=== PATIENT | male | born 1950 | race Caucasian/White ===

== ENCOUNTER 2022-02-17 09:15 | Outpatient (CLI) | payer MEDICARE, BC, SELFPAY ==
[2022-02-17 19:17] LABS: Chloride* 102 mmol/L (96-114); Potassium* 4.3 mmol/L (3.6-5.1); Sodium* 135 mmol/L (135-149)
[2022-02-17 19:19] LABS: Creatinine* 1.1 mg/dL (0.5-1.5); Estimated Glomerular Filt Rate 70.88
[2022-02-17 19:20] LABS: Blood Urea Nitrogen* 30 mg/dL (7-30); Calcium* 9.1 mg/dL (8.4-10.6); Carbon Dioxide* 25 mmol/L (20-32); Glucose* 105 mg/dL (60-115)
== END 2022-02-17 09:16 | disposition home or self-care (01) ==
LOC: LONREF 09:17
PROVIDERS: PCP Family Medicine; Visit Provider Family Medicine
DX: Z01.818 Encounter for other preprocedural examination (principal); I10 Essential (primary) hypertension; E78.5 Hyperlipidemia, unspecified; G20 Parkinson's disease; K86.89 Other specified diseases of pancreas
CPT/HCPCS: 80048

== ENCOUNTER 2022-05-18 14:32 | Outpatient (CLI) | payer MEDICARE, BC, SELFPAY ==
[2022-05-18 17:41] LABS: Creatine Kinase* 169 U/L (54-186)
== END 2022-05-18 14:33 | disposition home or self-care (01) ==
LOC: LONREF 14:34
PROVIDERS: PCP Family Medicine; Visit Provider Family Medicine
DX: R29.898 Other symptoms and signs involving the musculoskeletal system (principal)
CPT/HCPCS: 82550

== ENCOUNTER 2022-05-25 07:44 | Outpatient (CLI) | payer MEDICARE, BC, SELFPAY ==
--- NOTE | 2022-05-25 08:00 | CRLHL7_ITS ---
For Patients: As a result of the Century Cures Act, medical imaging exams and procedure reports are released immediately into your electronic medical record. You may view this report before your referring provider. If you have questions, please contact your health care provider. [facility] ??? [facility] MYOCARDIAL PERFUSION SCAN CLINICAL HISTORY: Chest pain and hypertension. TECHNIQUE: (Resting SPECT and Stress Gated SPECT with wall motion and ejection fraction) Stress: Pharmacologic ??? Regadenoson (0.4 mg) (IV) Dose (Stress/Rest): 30.0 mCi/8.6 mCi Tc-99m Sestamibi (IV) Comparison: None FINDINGS: There is good uptake of the radiotracer by the left ventricle. There is no left ventricular dilatation. There is soft tissue attenuation. No significant fixed or reversible defects are identified throughout the left ventricle. Gated images demonstrate left ventricular ejection fraction to calculate at 70 percent. There is no focal wall motion abnormality. IMPRESSION: 1. No evidence of significant myocardial ischemia or infarction. 2. Normal left ventricular ejection fraction is identified at 70 percent. This study was jointly reviewed by radiology and cardiology. GIO WOODWARD M.D. Diagnostic/Nuclear Medicine Radiologist [email or web address] Transcribed: 2:44 pm CO-READER: SELIN WANG M.D. CARDIOLOGY DW/Dictated by: Gio Woodward MD @ 05/25/2022 2:09:00 PM (Electronically Signed)
[2022-05-25] MEDS: SODIUM CHLORIDE 0.9 % (FLUSH) 10 ML SYRINGE IVF (10:04)
[2022-05-25] MEDS: REGADENOSON 0.4 MG/5 ML SYRINGE IVP (10:04)
[2022-05-25 11:19] VITALS: BP 121/77; PULSE 105
--- NOTE | 2022-05-25 17:19 | PM.ST ---
Stress Test Note Date Date Seen: 05/25/22 Date of test: 05/25/22 Providers Referring provider: Lino Erickson Primary care provider: Lino Erickson Stress test physician: Rory Blue Stress Test Note Stress test ordered: Lexiscan Indication for test: Exertional shortness of breath Stress test medicine: Lexiscan Results discussion: Patient is a very nice 71-year-old gentleman who presents for the above test after discussion the risks benefits and side effects he would like to proceed pretest EKG is reviewed. This shows normal sinus rhythm with a ventricular rate of 93, blood pressure 150 a 95, there is some diffuse ST wave changes noted inferiorly. Unknown if this is at baseline. Following standard Lexiscan protocol for 5 minutes, patient sat. His maximum was 109 which is 87% of the maximum, he had no changes during this test denies any chest pain shortness of breath or fatigue, review of the tracings show no change in pre-existing EKG. There is no ST wave Dews suggestive of ischemia. Impression: Negative electrographic portion of Lexiscan Follow up suggested: Await nuclear images these will be read by Cardiology nuclear Medicine, clinical correlation with these will be needed, patient left this testing facility in excellent condition.
== END 2022-05-25 07:45 | disposition home or self-care (01) ==
PROVIDERS: PCP Family Medicine; Visit Provider Family Medicine
DX: R06.09 Other forms of dyspnea (principal)
CPT/HCPCS: 78452; 93016; 93017; A9500; J2785

== ENCOUNTER 2022-08-09 08:04 | Outpatient (CLI) | payer MEDICARE, BC, SELFPAY ==
[2022-08-09 13:59] LABS: Chloride* 101 mmol/L (96-114); Potassium* 5.1 mmol/L (3.6-5.1); Sodium* 137 mmol/L (135-149)
[2022-08-09 14:02] LABS: Carbon Dioxide* 29 mmol/L (20-32); Creatinine* 1.1 mg/dL (0.5-1.5); Estimated Glomerular Filt Rate 71 ml/min
[2022-08-09 14:03] LABS: Blood Urea Nitrogen* 18 mg/dL (7-30); Calcium* 9.7 mg/dL (8.4-10.6); Glucose* 91 mg/dL (60-115)
== END 2022-08-09 08:05 | disposition home or self-care (01) ==
LOC: LONREF 08:05
PROVIDERS: PCP Family Medicine; Visit Provider Family Medicine
DX: Z01.818 Encounter for other preprocedural examination (principal)
CPT/HCPCS: 80048

== ENCOUNTER 2022-08-27 07:31 | Outpatient (CLI) | payer MEDICARE, BC, SELFPAY ==
--- NOTE | 2022-08-27 09:29 | W.ANESCHARGE ---
Anesthesia Charges Start Date/Time Anesthesia Start Date: 08/27/22 Anesthesia Start Time: 08:45 Stop Date/Time Anesthesia Stop Date: 08/27/22 Anesthesia Stop Time: 09:27 Summary Emergency: No Extremes of Age: Over 68-CPT [id number]
== END 2022-08-27 07:32 | disposition home or self-care (01) ==
PROVIDERS: PCP Family Medicine; Visit Provider Internal Medicine
DX: Z12.11 Encounter for screening for malignant neoplasm of colon (principal); K63.5 Polyp of colon; Z86.010 Personal history of colon polyps
CPT/HCPCS: 00811; 45380; 88305; 99100; J2704

== ENCOUNTER 2022-10-06 13:15 | Outpatient (CLI) | payer MEDICARE, BC, SELFPAY ==
[2022-10-06 17:36] LABS: Chloride* 97 mmol/L (96-114); Potassium* 4.7 mmol/L (3.6-5.1); Sodium* 135 mmol/L (135-149)
[2022-10-06 17:39] LABS: Blood Urea Nitrogen* 21 mg/dL (7-30); Carbon Dioxide* 30 mmol/L (20-32); Estimated Glomerular Filt Rate 79 ml/min; Glucose* 92 mg/dL (60-115)
[2022-10-06 17:40] LABS: Calcium* 9.8 mg/dL (8.4-10.6)
== END 2022-10-06 13:16 | disposition home or self-care (01) ==
LOC: LONREF 13:16
PROVIDERS: PCP Family Medicine; Visit Provider Family Medicine
DX: Z01.818 Encounter for other preprocedural examination (principal)
CPT/HCPCS: 80048

== ENCOUNTER 2023-05-23 10:18 | Outpatient (CLI) | payer MEDICARE, BC, SELFPAY | END 2023-05-23 10:19 | disposition home or self-care (01) | PROVIDERS: PCP Family Medicine; Visit Provider Family Medicine | DX: R42 Dizziness and giddiness (principal); R53.83 Other fatigue | CPT/HCPCS: 80053; 84443 ==

== ENCOUNTER 2023-05-31 08:40 | Outpatient (CLI) | payer MEDICARE, BC, SELFPAY | END 2023-05-31 08:41 | disposition home or self-care (01) | LOC: NFLDREF 16:28 | PROVIDERS: PCP Family Medicine; Referring Provider Family Medicine; Visit Provider Family Medicine | DX: E78.5 Hyperlipidemia, unspecified (principal) | CPT/HCPCS: 80061 ==

== ENCOUNTER 2023-08-16 14:27 | Outpatient (REF) | payer MEDICARE, BC, SELFPAY ==
[2023-08-16 15:30] LABS: Iron* 119 ug/dL (49-181)
[2023-08-16 15:31] LABS: Glucose* 99 mg/dL (60-115)
[2023-08-16 15:39] LABS: Percent Iron Saturation 40 % (20-50); Total Iron Binding Capacity 296 ug/dL (261-462)
[2023-08-16 15:44] LABS: Hemoglobin A1C* 5.2 % (0-5.6)
[2023-08-20 00:14] LABS: Albumin 3.98 g/dL (3.75-5.01); Alpha 1 Globulin 0.25 g/dL (0.19-0.46); Alpha 2 Globulin 0.54 g/dL (0.48-1.05); Immunofixation IFE Done; Immunoglobulin A 452 mg/dL (68-408); Immunoglobulin G 752 mg/dL (768-1632); Immunoglobulin M 75 mg/dL (35-263); Kappa Qnt Free Light Chains 41.85 mg/L (3.30-19.40); Kappa/Lambda Light Chain Ratio 0.96 (0.26-1.65); Lambda Qnt Free Light Chains 43.67 mg/L (5.71-26.30); Total Protein, Serum 6.5 g/dL (6.3-8.2)
== END 2023-08-16 14:28 | disposition home or self-care (01) ==
LOC: NPINS 14:27
PROVIDERS: PCP Family Medicine; Visit Provider Physician Assistant
DX: G25.81 Restless legs syndrome (principal); Z13.0 Encounter for screening for diseases of the blood and blood-forming organs and certain disorders involving the immune mechanism; I10 Essential (primary) hypertension; E78.5 Hyperlipidemia, unspecified; G47.33 Obstructive sleep apnea (adult) (pediatric); G62.9 Polyneuropathy, unspecified; F41.9 Anxiety disorder, unspecified; G20.A2 Parkinson's disease without dyskinesia, with fluctuations; F34.1 Dysthymic disorder; K86.89 Other specified diseases of pancreas; Z13.29 Encounter for screening for other suspected endocrine disorder; R42 Dizziness and giddiness
CPT/HCPCS: 82607; 82728; 82784; 82947; 83036; 83520; 83540; 83550; 84155; 84165; 84443; 86334

== ENCOUNTER 2023-12-22 14:56 | Outpatient (REF) | payer MEDICARE, BC, SELFPAY | END 2023-12-22 14:57 | disposition home or self-care (01) | LOC: NPINS 14:56 | PROVIDERS: PCP Family Medicine; Visit Provider Physician Assistant | DX: G62.9 Polyneuropathy, unspecified (principal) | CPT/HCPCS: 86334 ==

== ENCOUNTER 2024-01-09 10:23 | Outpatient (CLI) | payer MEDICARE, BC, SELFPAY ==
--- NOTE | 2024-01-09 10:45 | MM_ITS ---
Patient: ROGE VALENCIA Facility:?[facility] Patient ID:?[id number] Site Patient ID:?[id number] Site :?[id number] Study:?XRay-Breast Bilateral 3D W/CAD-01/09/2024 10:58:25 AM Ordering Physician:Na Final Report: DIGITAL DIAGNOSTIC BILATERAL MAMMOGRAM USING TOMOSYNTHESIS AND COMPUTER-AIDED DETECTION CLINICAL HISTORY: RIGHT breast lump. COMPARISON: None. TECHNIQUE: Digital BILATERAL mammogram in four projections with computer-aided detection. Tomosynthesis was used in this interpretation. BREAST COMPOSITION: There are areas of scattered fibroglandular density. FINDINGS: 3D CC/MLO bilateral mammogram images submitted. Subareolar breast tissue noted bilaterally, RIGHT greater than LEFT. No architectural distortion or suspicious mass. No suspicious calcifications or adenopathy. IMPRESSION: Bilateral subareolar gynecomastia, [id number]. No suspicious findings. No evidence of malignancy. RECOMMENDATIONS: Clinical follow-up. Results and recommendations discussed with the patient. BI-RADS Category 2: Benign A lay language report of this examination will be provided to the patient. Dictated by Tr Wadsworth MD @ 01/09/2024 12:05:50 PM jj/Dictated by: Tr Wadsworth MD @ 01/09/2024 12:05:00 PM Signed by:?Tr Wadsworth MD @01/09/2024 4:31:57 PM (Electronic Signature)
== END 2024-01-09 10:24 | disposition home or self-care (01) ==
LOC: MAMMO 10:24
PROVIDERS: PCP Family Medicine; Visit Provider Family Medicine
DX: N63.15 Unspecified lump in the right breast, overlapping quadrants (principal); N62 Hypertrophy of breast
CPT/HCPCS: 77066; G0279

== ENCOUNTER 2024-06-26 09:56 | Outpatient (CLI) | payer MEDICARE, BC, SELFPAY | END 2024-06-26 09:57 | disposition home or self-care (01) | PROVIDERS: PCP Family Medicine; Visit Provider Family Medicine | DX: R53.83 Other fatigue (principal); N62 Hypertrophy of breast; E78.5 Hyperlipidemia, unspecified; D80.8 Other immunodeficiencies with predominantly antibody defects; Z13.29 Encounter for screening for other suspected endocrine disorder; Z13.0 Encounter for screening for diseases of the blood and blood-forming organs and certain disorders involving the immune mechanism | CPT/HCPCS: 80053; 80061; 82670; 83002; 84270; 84402; 84403; 84443; 84704 ==

== ENCOUNTER 2024-07-20 21:51 | Outpatient (CLI) | payer MEDICARE, BC, SELFPAY | END 2024-07-20 21:52 | disposition home or self-care (01) | LOC: AMB 07-21 04:44 | PROVIDERS: PCP Family Medicine; Visit Provider Family Medicine | DX: R06.09 Other forms of dyspnea (principal); R05.9 Cough, unspecified | CPT/HCPCS: A0425; A0427 ==

== ENCOUNTER 2024-07-20 22:37 | Emergency (ER) | payer MEDICARE, BC, SELFPAY ==
[2024-07-20 22:49] VITALS: BP 120/72; PULSE 105; RESP 22; TEMP 36.7; O2SAT 88; BMI 25.6
--- NOTE | 2024-07-20 22:58 | ED.GENADULT ---
HPI - General Adult General Chief complaint: Anxiety Stated complaint: Anxiety Time Seen by Provider: 07/20/24 22:49 History of Present Illness HPI narrative: pt covid last - finished paxlovid. states last night pt has been coughing and crying and more confused. today he has been angry and crying on and off all day. EMS gave 0.5iv ativan. R ac 20g. states parkinsons and dementia but this is not his normal. pt eating good today. chronic 3-4 drink vodka drinker - last drink besides tonight was tuesday, had 3 vodkas tonight. on triage pt crying and answers yes/no answers. denies pain,SOB, CP 73-year-old man brought by EMS to the emergency department after an episode of crying and coughing at home. Recently diagnosed with COVID. Had not been coughing at that time. Began coughing more today, tonight. Was restless and ?roaming? about the house. Seated on the couch started coughing and ended up on the floor and spouse could not get him up. Son arrived call 911. Spouse was trying to dress him and he was crying. Has been also more confused. He does have a few vodka drinks daily but until tonight he had not had any for 4 days. Three vodkas tonight. Was mobile upon transfer from EMS to the bed but has since been stiffened up and responding only minimally. No seizure history. Underlying history of Parkinson's and has been experiencing more anxiety and anger lately. Has been punching abarca. There are other family stressors. Visit to primary care for this reason 3 weeks ago. Recently increased from 30-60 mg daily of BuSpar and initiated on tamoxifen. Related Data Home Medications ?Medication ?Instructions ?Recorded ?Confirmed multivitamin (Daily Multi-Vitamin 1 tab PO QDAY 02/16/22 07/20/24 tablet) omega-3 fatty acids 1,250 mg 1,250 mg PO QDAY 02/16/22 07/20/24 capsule carbidopa ER 50 mg-levodopa 200 mg 1 tab PO QPM 05/23/23 07/20/24 tablet,extended release gabapentin 300 mg capsule 600 mg PO QHS 08/30/23 07/20/24 carbidopa 25 mg-levodopa 100 mg 2 tab PO TID 12/28/23 07/20/24 tablet Previous Rx's ?Medication ?Instructions ?Recorded fludrocortisone 0.1 mg tablet 0.1 mg PO QDAY #90 tabs 06/07/23 buspirone 10 mg tablet 10 mg PO 3XD #270 tabs 12/27/23 duloxetine 60 mg capsule,delayed 60 mg PO QDAY #90 caps 04/26/24 release gnddso-[id number] 1 cap PO 3XD #270 caps 05/02/24 24,000-76,000-120,000 unit capsule,delayed rel (Creon) clonazepam 1 mg tablet See Rx Instructions PO .ud #75 tabs 06/25/24 buspirone 30 mg tablet 30 mg PO BID #60 tabs 06/26/24 allopurinol 300 mg tablet 300 mg PO DAILY #90 tabs 07/20/24 pravastatin 40 mg tablet 40 mg PO QDAY #90 tabs 07/20/24 Allergies Allergy/AdvReac Type Severity Reaction Status Date / Time No Known Drug Allergies Allergy Verified 06/26/24 08:56 Review of Systems Status of ROS: Reports: 6 or more systems reviewed and unremarkable except as noted in History and below [facility] Medical History Lumbar strain ?S39.012A - Strain of muscle, fascia and tendon of lower back, initial encounter (ICD-10) Enrolled in chronic care management ?Z78.9 - Other specified health status (ICD-10) Family history of ASCVD ?Z82.49 - Family history of ischemic heart disease and other diseases of the circulatory system (ICD-10) Family history of diabetes mellitus ?Z83.3 - Family history of diabetes mellitus (ICD-10) History of adenomatous polyp of colon ?Z86.010 - Personal history of colonic polyps (ICD-10) Melanoma ?C43.9 - Malignant melanoma of skin, unspecified (ICD-10) History of TIA (transient ischemic attack) ?Z86.73 - Personal history of transient ischemic attack (TIA), and cerebral infarction without residual deficits (ICD-10) Surgical History History of arthroplasty of both hips ?Z96.643 - Presence of artificial hip joint, bilateral (ICD-10) S/P right knee arthroscopy ?Z98.890 - Other specified postprocedural states (ICD-10) Status post ORIF of fracture of ankle ?Z98.890 - Other specified postprocedural states (ICD-10) ?Z87.81 - Personal history of (healed) traumatic fracture (ICD-10) S/P lumbar spinal fusion ?Z98.1 - Arthrodesis status (ICD-10) S/P shoulder replacement ?Z96.619 - Presence of unspecified artificial shoulder joint (ICD-10) H/O resection of rib ?Z98.890 - Other specified postprocedural states (ICD-10) History of colonoscopy ?Z98.890 - Other specified postprocedural states (ICD-10) History of bilateral total hip arthroplasty ?Z96.643 - Presence of artificial hip joint, bilateral (ICD-10) History of right inguinal hernia repair ?Z98.890 - Other specified postprocedural states (ICD-10) ?Z87.19 - Personal history of other diseases of the digestive system (ICD-10) History of thoracic outlet syndrome ?Z86.69 - Personal history of other diseases of the nervous system and sense organs (ICD-10) Family History Other Family history of ASCVD Family history of diabetes mellitus Social History Narrative: Alcohol abuse Smoking Status: Never smoker How often do you have a drink containing alcohol: 2-3 times a week How many standard drinks containing alcohol do you have on a typical day: 1 or 2 How often do you have six or more drinks on one occasion: Weekly AUDIT-C Alcohol total score: 6 Non-prescribed substance use: denies use service: No Exam Narrative: Exam Narrative: Mr. Aguilar does respond briefly to questioning. He does not voluntarily relaxer move his extremities. He does open his eyes however. And responds yes or no to some questioning. Oropharynx is without apparent injury. They are wet and red rimmed is if has been crying. Pupils are equal at 5 mm and appropriately reactive. Head looks atraumatic. Extremities are held quite tense in extension. Both hands are gripping tightly to the bed rails and his feet are extended with toes jammed up against rales. Calf, legs are quite tight. Arms are quite tight. Skin is warm and dry, though back is diaphoretic, without evidence of trauma other than some erythema on the knuckles of the right hand but they are without deformity or particular tenderness noticed. Well-perfused peripherally. No extremity edema. I try to relax his legs pending his knees he allows this to happen and we move his feet off of the rales. I also try to relax is hands and arms off of the rales which he allows momentarily. In an attempt to set him up more as he is extending up over the top of the bed with his head extended, when I release pressure on the pneumatic, the pressure he is applying to the upper bed forces it down very quickly. Feet are now jammed back up at the rails. Const: Vital Signs, click to edit/add: Vital Signs - 24 hr 07/20/24 22:49 07/20/24 23:10 07/20/24 23:10 Temperature 98.0 F Pulse Rate [Pulse Oximeter] 105 H Respiratory Rate 22 Blood Pressure [Le ft Upper Arm] 120/72 Pulse Oximetry 88 88 95 Oxygen Delivery Me thod Room Air Nasal Cannula Oxygen Flow Rate 2 07/20/24 23:23 07/20/24 23:23 07/20/24 23:38 Temperature 98.0 F Pulse Rate [Pulse Oximeter] 91 Respiratory Rate 18 Blood Pressure [Le ft Upper Arm] 128/70 Pulse Oximetry 95 95 95 Oxygen Delivery Me thod Nasal Cannula Nasal Cannula Oxygen Flow Rate 2 1 07/21/24 00:15 Temperature Pulse Rate [Pulse Oximeter] 86 Respiratory Rate 18 Blood Pressure [Le ft Upper Arm] 155/85 H Pulse Oximetry 90 Oxygen Delivery Me thod Nasal Cannula Oxygen Flow Rate 1 Documenting provider has reviewed patient's vital signs: yes Course Vital Signs Vital signs: Initial Vital Signs Temperature 98.0 F 07/20/24 22:49 Temperature Source Temporal Artery Scan 07/20/24 22:49 Pulse Rate 105 H 07/20/24 22:49 Respiratory Rate 22 07/20/24 22:49 Blood Pressure 120/72 07/20/24 22:49 Blood Pressure Mean 88 07/20/24 22:49 Blood Pressure Position Sitting 07/20/24 22:49 Pulse Oximetry 88 07/20/24 22:49 Oxygen Delivery Method Room Air 07/20/24 22:49 Vital Signs Temperature 98.0 F 07/20/24 22:49 Pulse Rate 105 H 07/20/24 22:49 Respiratory Rate 22 07/20/24 22:49 Blood Pressure 120/72 07/20/24 22:49 Pulse Oximetry 88 07/20/24 22:49 Oxygen Delivery Method Room Air 07/20/24 22:49 Temperature 98.0 F 07/20/24 23:38 Pulse Rate 86 07/21/24 00:15 Respiratory Rate 18 07/21/24 00:15 Blood Pressure 155/85 H 07/21/24 00:15 Pulse Oximetry 90 07/21/24 00:15 Oxygen Delivery Method Nasal Cannula 07/21/24 00:15 Oxygen Flow Rate 1 07/21/24 00:15 Medications Administered Medications: Discontinued Medications Generic Name Dose Route Start Last Admin Trade Name Freq PRN Reason Stop Dose Admin Sodium Chloride 500 mls @ 1,000 mls/hr 07/20/24 23:10 07/20/24 23:17 0.9 % Sodium Chloride 500 Ml IV 07/20/24 23:39 1,000 mls/hr .Q30M ONE Administration Sodium Chloride 500 mls @ 1,000 mls/hr 07/20/24 23:41 07/21/24 00:14 0.9 % Sodium Chloride 500 Ml IV 07/21/24 00:10 1,000 mls/hr .Q30M ONE Administration Lorazepam 1 mg 07/20/24 23:10 07/20/24 23:17 Lorazepam 2 Mg/Ml Inj IVP 07/20/24 23:11 1 mg ONCE ONE Administration Medical Decision Making MDM Narrative Medical decision making narrative: I suspect this is an unusual emotional reaction in the setting of Parkinson's. Complicated by alcohol use perhaps. Withdrawal? Checking alcohol level however. Once can be more sure of stability would like to scan his head however. I do not think this is any sort of seizure as he does respond. Does not actually seem like pseudo-seizure either. Nor do I think there is an ischemic cerebrovascular event. Perhaps this might be partly related to some medication changes. I would be worried given the sustained muscle tension/contraction of developing rhabdomyolysis. Will try to help with relaxation both emotionally and physically. Will initially re-dose with lorazepam. Perhaps low-dose/pain dose ketamine, pending lab results, or propofol would be an option. Obtain labs. Hydrate. Chest x-ray pending. Chest x-ray one view portable reviewed by me is with rather limited expansive effort and low lung volumes. I do not see any infiltrate. No pneumothorax. Radiology over-read below Cough, altered mental status. TECHNIQUE: Chest 1 view. COMPARISON: 05/23/2023. FINDINGS: Cardiovascular and mediastinum: Heart size and vasculature are normal in caliber and appearance. Lungs and pleural spaces: Low lung volumes with bronchovascular crowding. No focal consolidation. No pleural effusion or pneumothorax. Bones and soft tissues: Bilateral shoulder arthroplasties. Otherwise, unremarkable for age. IMPRESSION: Low lung volumes with bronchovascular crowding. No focal consolidation. Alcohol level is 0.16. Doubtful withdrawal related. Creatinine is elevated at 2.1 which is up from last checked at 1.7 earlier this month. Stage I CARLOS BUN also elevated. One year ago creatinine was 1. Pre renal? Able to CT head. By my read without acute abnormalities. Radiology over-read below Altered mental status. TECHNIQUE: CT head without contrast. COMPARISON: 01/10/2016. FINDINGS: CSF spaces: Proportionate prominence of the ventricles and sulci, reflecting mild generalized cerebral volume loss. Brain parenchyma: The ware-white differentiation is maintained. Patchy white matter low attenuation changes, nonspecific but likely reflecting chronic small vessel ischemic disease. No sign of mass, hemorrhage, or midline shift. Skull base and calvarium: The visualized paranasal sinuses and mastoid air cells demonstrate no acute or significant findings. The visualized orbits are grossly unremarkable. No skull fractures. IMPRESSION: No acute intracranial abnormality. Pending CPK Pending otherwise normal labs anticipate handing off at change of shift once ambulatory then likely discharge to close outpatient follow-up for lab rechecks and possibly Geriatric psych. Really does need to work on alcohol cessation. Tamoxifen may be also affecting mood On reassessment Mr. Aguilar is more alert and relaxed at least in his upper body. Tremors return to his right hand. He is conversing longer form. Labs return with normal CPK. CRP is little bit elevated 3.2 On reassessment is able to attend a conversation speak in full sentences. He is more relaxed in the upper body in particular. Tremor is return to his right hand. Still little stiff in the lower legs. He expresses this increased stress, grief over the last 3 weeks related to his son's diagnosis. 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 Is able to get up and ambulate tentatively with to assist. Stiffly. Still apparently intoxicated and not to safe baseline to return home with spouse at this time. Due for evening meds. All but clonazepam will be given. Handing off at change of shift pending ability to ambulate more steadily. Medical Records Medical records reviewed: Yes I reviewed the patient's medical records Lab Data Lab results reviewed: Yes I reviewed the patient's lab results Labs: Lab Results 07/20/24 Range/Units 23:16 WBC 7.88 (4.50-11.00) K/uL RBC 3.59 L (4.30-5.90) m/uL Hgb 12.3 L (13.5-17.5) gm/dL Hct 36.2 L (37.0-53.0) % MCV 101 H (80-100) fL MCH 34 (26-34) pg MCHC 34 (32-36) gm/dL RDW Coeff of Wallace 11.7 (11.5-15.5) % Plt Count 194 (140-440) K/uL Neut % (Auto) 68.7 (42.0-72.0) % Lymph % (Auto) 16.1 L (20-44) % Brewster % (Auto) 11.8 H (0.0-11.0) % Eos % (Auto) 1.9 (0.0-7.0) % Baso % (Auto) 0.1 (0.0-3.0) % Neut # (Auto) 5.41 (1.7-7.0) K/uL Lymph # (Auto) 1.30 (0.90-2.90) K/uL Brewster # (Auto) 0.90 (0.00-0.90) K/UL Eos # (Auto) 0.15 (0.00-0.50) K/uL Baso # (Auto) 0.01 (0.00-0.30) K/uL Abs Immat Gran (auto) 0.11 (0.00-0.30) K/uL Imm/Tot Granulo (auto) 1.4 % Sodium 130 L (135-149) mmol/L Potassium 4.8 (3.6-5.1) mmol/L Chloride 92 L (96-114) mmol/L Carbon Dioxide 29 (20-32) mmol/L Anion Gap 9 (7-15) mEq/L BUN 38 H (7-30) mg/dL Creatinine 2.1 H (0.5-1.5) mg/dL Estimated Creat Clear 36.33 Estimated GFR 32 ml/min Glucose 96 (60-115) mg/dL Calcium 9.2 (8.4-10.6) mg/dL Total Bilirubin 0.2 (0.1-1.5) mg/dL Direct Bilirubin 0.2 (0.0-0.5) mg/dL AST 41 H (12-35) U/L ALT 6 (4-50) U/L Alkaline Phosphatase 46 (40-150) U/L Total Creatine Kinase 153 (54-186) U/L C-Reactive Protein 3.2 H (0.5-1.0) mg/dL Total Protein 7.1 (6.0-8.3) g/dL Albumin 4.4 (3.3-5.0) g/dL Salicylates < 1.0 L (1.0-10) mg/dL Acetaminophen < 10.0 L (10.0-30.0) ug/mL Ethyl Alcohol 0.16 H (0.01-0.03) % Discharge Plan Discharge Clinical Impression: Grief, Anxiety, Kidney injury Parkinson's disease Qualifiers: Dyskinesia presence: without dyskinesia Fluctuating manifestations: with fluctuating manifestations Qualified Code(s): G20.A2 - Parkinson's disease without dyskinesia, with fluctuations Patient Disposition: Home w/ Parent or Adult Condition: Improved Additional Instructions: Please follow-up with your primary care provider in 7-10 days to recheck labs. I would also discuss your medications at that time. Your tamoxifen may be playing a role in your increased anxiety, agitation and stress but so to is your alcohol consumption. It would be a very good idea on many levels to decrease your alcohol intake or stop it altogether. You might also benefit from a consult with a geriatric adjunct psychology faculty member. Prescriptions: No Action multivitamin [Daily Multi-Vitamin] Tablet 1 tab PO QDAY omega-3 fatty acids 1,250 mg capsule 1,250 mg PO QDAY carbidopa-levodopa 50-200 mg tablet extended release 1 tab PO QPM fludrocortisone 0.1 mg tablet 0.1 mg PO QDAY Qty: 90 3RF gabapentin 300 mg capsule 600 mg PO QHS carbidopa-levodopa 25-100 mg tablet 2 tab PO TID buspirone 30 mg tablet 30 mg PO BID Qty: 60 5RF buspirone 10 mg tablet 10 mg PO 3XD Qty: 270 3RF duloxetine 60 mg capsule,delayed release(DR/EC) 60 mg PO QDAY Qty: 90 1RF Creon 24,000-76,000 -120,000 unit capsule,delayed release(DR/EC) 1 cap PO 3XD Qty: 270 0RF clonazepam 1 mg tablet See Rx Instructions PO .ud Qty: 75 1RF Rx Instructions: 0.5-1 mg t.i.d. orally UD; allopurinol 300 mg tablet 300 mg PO DAILY Qty: 90 3RF pravastatin 40 mg tablet 40 mg PO QDAY Qty: 90 3RF Follow Up/Referrals: Lino Erickson MD [Primary Care Provider] - Stand Alone Forms: [facility] Info Instructions
[2024-07-20 23:10] VITALS: O2SAT 88; O2SAT 95
--- NOTE | 2024-07-20 23:10 | CRLHL7_ITS ---
For Patients: As a result of the Century Cures Act, medical imaging exams and procedure reports are released immediately into your electronic medical record. You may view this report before your referring provider. If you have questions, please contact your health care provider. INDICATION: Cough, altered mental status. TECHNIQUE: Chest 1 view. COMPARISON: 05/23/2023. FINDINGS: Cardiovascular and mediastinum: Heart size and vasculature are normal in caliber and appearance. Lungs and pleural spaces: Low lung volumes with bronchovascular crowding. No focal consolidation. No pleural effusion or pneumothorax. Bones and soft tissues: Bilateral shoulder arthroplasties. Otherwise, unremarkable for age. IMPRESSION: Low lung volumes with bronchovascular crowding. No focal consolidation. Dictated by Erich Jean MD @ 07/20/2024 11:31:25 PM (Electronically Signed)
[2024-07-20] MEDS: LORazepam 2 MG/ML inj 1 MG IVP (23:17)
[2024-07-20] MEDS: 0.9 % SODIUM CHLORIDE 500 ML 500 ML 1000 ML IV (23:17)
[2024-07-20 23:22] LABS: Basophils Absolute Auto 0.01 K/uL (0.00-0.30); Basophils Percent Auto 0.1 % (0.0-3.0); Eosinophils Absolute Auto 0.15 K/uL (0.00-0.50); Eosinophils Percent Auto 1.9 % (0.0-7.0); Hematocrit 36.2 % (37.0-53.0); Hemoglobin* 12.3 gm/dL (13.5-17.5); Immature Granulocytes Abs Auto 0.11 K/uL (0.00-0.30); Immature Granulocytes Pct Auto 1.4 %; Lymphocytes Percent Auto 16.1 % (20-44); Mean Corpuscular HGB Conc 34 gm/dL (32-36); Mean Corpuscular Hemoglobin 34 pg (26-34); Mean Corpuscular Volume 101 fL (80-100); Monocytes Percent Auto 11.8 % (0.0-11.0); Neutrophils Absolute Auto 5.41 K/uL (1.7-7.0); Neutrophils Percent Auto 68.7 % (42.0-72.0); Platelet Count* 194 K/uL (140-440); RDW Coefficient of Variation % 11.7 % (11.5-15.5); Red Blood Count 3.59 m/uL (4.30-5.90); White Blood Count* 7.88 K/uL (4.50-11.00)
--- NOTE | 2024-07-20 23:22 | CRLHL7_ITS ---
For Patients: As a result of the Century Cures Act, medical imaging exams and procedure reports are released immediately into your electronic medical record. You may view this report before your referring provider. If you have questions, please contact your health care provider. INDICATION: Altered mental status. TECHNIQUE: CT head without contrast. COMPARISON: 01/10/2016. FINDINGS: CSF spaces: Proportionate prominence of the ventricles and sulci, reflecting mild generalized cerebral volume loss. Brain parenchyma: The ware-white differentiation is maintained. Patchy white matter low attenuation changes, nonspecific but likely reflecting chronic small vessel ischemic disease. No sign of mass, hemorrhage, or midline shift. Skull base and calvarium: The visualized paranasal sinuses and mastoid air cells demonstrate no acute or significant findings. The visualized orbits are grossly unremarkable. No skull fractures. IMPRESSION: No acute intracranial abnormality. Please note that all CT scans at this facility use dose modulation, iterative reconstruction, and/or weight-based dosing when appropriate to reduce radiation dose to as low as reasonably achievable. Dictated by Elieser Granados MD @ 07/20/2024 11:46:35 PM (Electronically Signed)
[2024-07-20 23:23] VITALS: O2SAT 95
[2024-07-20 23:25] LABS: Slide Review Reflex No
[2024-07-20 23:34] LABS: Albumin* 4.4 g/dL (3.3-5.0); Chloride* 92 mmol/L (96-114)
[2024-07-20 23:35] LABS: Potassium* 4.8 mmol/L (3.6-5.1); Sodium* 130 mmol/L (135-149)
[2024-07-20 23:37] LABS: Creatinine* 2.1 mg/dL (0.5-1.5); Est. Creatinine Clearance* 36.33; Estimated Glomerular Filt Rate 32 ml/min
[2024-07-20 23:38] VITALS: BP 128/70; PULSE 91; RESP 18; TEMP 36.7; O2SAT 95
[2024-07-20 23:38] LABS: Alanine Aminotransferase* 6 U/L (4-50); Alkaline Phosphatase* 46 U/L (40-150); Anion Gap 9 mEq/L (7-15); Aspartate Amino Transferase* 41 U/L (12-35); Bilirubin Direct* 0.2 mg/dL (0.0-0.5); Bilirubin Total* 0.2 mg/dL (0.1-1.5); Blood Urea Nitrogen* 38 mg/dL (7-30); Calcium* 9.2 mg/dL (8.4-10.6); Carbon Dioxide* 29 mmol/L (20-32); Ethanol* 0.16 % (0.01-0.03); Glucose* 96 mg/dL (60-115); Total Protein* 7.1 g/dL (6.0-8.3)
[2024-07-20 23:40] LABS: Acetaminophen* < 10.0 ug/mL (10.0-30.0); Salicylate* < 1.0 mg/dL (1.0-10)
[2024-07-20 23:53] LABS: Creatine Kinase* 153 U/L (54-186)
[2024-07-21 00:12] LABS: C Reactive Protein* 3.2 mg/dL (0.5-1.0)
[2024-07-21] MEDS: 0.9 % SODIUM CHLORIDE 500 ML 500 ML 1000 ML IV (00:14)
[2024-07-21 00:15] VITALS: BP 155/85; PULSE 86; RESP 18; O2SAT 90
[2024-07-21 00:30] VITALS: BP 133/71; PULSE 94; RESP 18; O2SAT 90
[2024-07-21 01:01] VITALS: BP 142/70; PULSE 85; RESP 18; O2SAT 94
[2024-07-21] MEDS: CARBIDOPA-LEVODOPA 25-100 TABLET 3 TAB PO (01:21)
[2024-07-21] MEDS: GABAPENTIN 600 MG TABLET PO (01:21)
[2024-07-21] MEDS: BUSPIRONE 10 MG TABLET 30 MG PO (01:24)
[2024-07-21] MEDS: PANCREALIPASE (12,38,60) CAP 2 CAP PO (01:25)
[2024-07-21 01:55] VITALS: BP 138/82; PULSE 83; RESP 16; O2SAT 96
[2024-07-21 02:10] LABS: Appearance Urine Clear (Clear); Bilirubin Urine Negative (Negative); Blood Urine Negative (Negative); Color Urine Yellow (Yellow); Glucose Urine Negative (Negative); Ketones Urine Negative (Negative); Leukocyte Esterase Urine Negative (Negative); Nitrite Urine Negative (Negative); Protein Urine Negative (Negative); Urobilinogen Urine 0.2 (0.2-1.0); pH Urine 6.5 (5.0-8.5)
[2024-07-21 02:16] LABS: RBC Urine 0-2 (0-2); WBC Urine 0-2 (0-5)
[2024-07-21 02:18] LABS: Amphetamine Screen Urine Negative (Negative); Barbiturate Screen Urine Negative (Negative); Benzodiazepines Screen Urine Negative (Negative); Cannabinoid Screen Urine Negative (Negative); Cocaine Screen Urine Negative (Negative); Methadone Screen Urine Negative (Negative); Methamphetamines Screen Urine Negative (Negative); Opiate Screen Urine Negative (Negative); Oxycodone Screen Urine Negative (Negative); Phencyclidine Screen Urine Negative (Negative); Tricyclic Antidepressant Urine Negative (Negative)
== END 2024-07-21 02:40 | disposition home or self-care (01) ==
PROVIDERS: Family Medicine; Emergency Provider Family Medicine; PCP Family Medicine
DX: F43.21 Adjustment disorder with depressed mood (principal); F41.9 Anxiety disorder, unspecified; S37.009A Unspecified injury of unspecified kidney, initial encounter; F10.129 Alcohol abuse with intoxication, unspecified; G20.A1 Parkinson's disease without dyskinesia, without mention of fluctuations
CPT/HCPCS: 36415; 70450; 71045; 80048; 80076; 80143; 80179; 80306; 81001; 82077; 82550; 85025; 86140; 94761; 96361; 96374; 99284; 99285; A9270; J2060; J7030

== ENCOUNTER 2024-07-26 10:18 | Outpatient (CLI) | payer MEDICARE, BC, SELFPAY | END 2024-07-26 10:19 | disposition home or self-care (01) | LOC: NFLDREF 07-31 06:25 | PROVIDERS: PCP Family Medicine; Referring Provider Family Medicine; Visit Provider Family Medicine | DX: R79.89 Other specified abnormal findings of blood chemistry (principal); D80.8 Other immunodeficiencies with predominantly antibody defects | CPT/HCPCS: 80048; 84165; 86334 ==

== ENCOUNTER 2024-07-31 09:00 | Outpatient (CLI) | payer MEDICARE, BC, SELFPAY ==
--- NOTE | 2024-07-31 09:15 | CRLHL7_ITS ---
For Patients: As a result of the Century Cures Act, medical imaging exams and procedure reports are released immediately into your electronic medical record. You may view this report before your referring provider. If you have questions, please contact your health care provider. INDICATION: Serial creatinine levels COMPARISON: CT of the abdomen and pelvis from 05/01/2017 TECHNIQUE: Ultrasound examination of the retroperitoneum was performed with attention to the kidneys. FINDINGS: The kidneys are normal in their size, shape, and location. Cortical echogenicity and thickness is normal. There is no sign of hydronephrosis. The right kidney measures 12.3 x 5.8 x 4.6 cm. The left kidney measures 11.1 x 5.3 x 4.3 cm. There is normal color Doppler flow in both kidneys. The urinary bladder is normal in appearance. Bilateral ureteral jets are present. Prevoid volume is 70 cc. Postvoid volume is essentially unchanged at 66 cc, above the 50 cc threshold to be considered clinically significant. IMPRESSION: 1. Elevated postvoid residual at 66 cc, above the 50 cc threshold to be considered clinically significant. 2. Otherwise normal ultrasound examination of the kidneys and urinary bladder. Dictated by Tres Li MD @ 07/31/2024 11:38:06 AM (Electronically Signed)
== END 2024-07-31 09:01 | disposition home or self-care (01) ==
LOC: US 09:01
PROVIDERS: PCP Family Medicine; Visit Provider Family Medicine
DX: R79.89 Other specified abnormal findings of blood chemistry (principal)
CPT/HCPCS: 76770

== ENCOUNTER 2024-09-26 10:56 | Emergency (ER) | payer MEDICARE, BC, SELFPAY ==
[2024-09-26] VITALS (14 sets, daily range): BP systolic 86–171; BP diastolic 58–107; PULSE 70–96; RESP 18; TEMP 35.8; O2SAT 95–100; BMI 26.1
--- NOTE | 2024-09-26 11:40 | ED.GENADULT ---
HPI - General Adult General Time Seen by Provider: 11:44 Date Seen: 09/26/24 Chief complaint: Hypotension Stated complaint: Very low BP Time Seen by Provider: 09/26/24 11:11 Source: patient, RN notes reviewed and old records reviewed Mode of arrival: ambulatory Limitations: no limitations History of Present Illness HPI narrative: This 73-year-old male with underlying Parkinson's disease is coming in with symptomatic hypotension. He could not even get a blood pressure standing this morning, was too dizzy or knees felt like they were going to buckle. He has been having problems with hypotension and low blood pressures. It is usually worse in the morning, some days it can take an hour to feel better, some days up to 4 hours. He usually will feel better throughout the day. He did see his neurologist at the end of August, believe he said September 19. They did refer him to Cardiology. He is followed at [facility] in [place] his blood pressure from September 19 there was 96/66, in February was 107/68, in December was 113/63. He is scheduled to have an echo on October [address] Cruz on November 06. He has been given florinef 0.1 mg daily to be taken Tuesday per his med rec. Allopurinol, BuSpar, Sinemet, clonazepam 1 mg at bedtime, duloxetine, Proscar, fish oil, gabapentin, Creon, multivitamin, pravastatin, Restasis eyedrops, Flomax are also listed. He notes no chest pain, no shortness of breath, no cough or cold symptoms, no fevers or chills baseline. Does not feel like there is baseline arrhythmia irregular heart rate. Will feel extremely dizzy or lightheaded when attempting to get up or position changes in the morning. This morning was so bad that could not even stand without feeling like his knees were going to buckle. He was in urgent care on August 23 for episode of this, blood pressure had improved by the time he was seen. Does have a history of alcohol overuse but has been alcohol free for a while now. He states he will typically have juice and milk in the morning with breakfast, does try to eat and drink every morning. He does note that if his blood pressure gets too high or too low he will get a generalized headache with this. Related Data Home Medications ?Medication ?Instructions ?Recorded ?Confirmed multivitamin (Daily Multi-Vitamin 1 tab PO QDAY 02/16/22 08/23/24 tablet) omega-3 fatty acids 1,250 mg 1,250 mg PO QDAY 02/16/22 08/23/24 capsule carbidopa ER 50 mg-levodopa 200 mg 1 tab PO QPM 05/23/23 08/23/24 tablet,extended release gabapentin 300 mg capsule 600 mg PO QHS 08/30/23 08/23/24 carbidopa 25 mg-levodopa 100 mg 2 tab PO .ud 07/23/24 08/23/24 tablet Previous Rx's ?Medication ?Instructions ?Recorded duloxetine 60 mg capsule,delayed 60 mg PO QDAY #90 caps 04/26/24 release buspirone 30 mg tablet 30 mg PO BID #60 tabs 06/26/24 allopurinol 300 mg tablet 300 mg PO DAILY #90 tabs 07/20/24 pravastatin 40 mg tablet 40 mg PO QDAY #90 tabs 07/20/24 fludrocortisone 0.1 mg tablet 0.1 mg PO QDAY #90 tabs 07/25/24 nmrjhp-vpiztbod-fbjbvoa 1 cap PO 3XD #270 caps 07/27/24 24,000-76,000-120,000 unit capsule,delayed rel (Creon) finasteride 5 mg tablet 5 mg PO QDAY #90 tabs 07/31/24 tamsulosin 0.4 mg capsule 0.4 mg PO QDAY #90 caps 07/31/24 clonazepam 1 mg tablet 1 mg PO QHS #75 tabs 09/19/24 Allergies Allergy/AdvReac Type Severity Reaction Status Date / Time No Known Drug Allergies Allergy Verified 09/26/24 11:17 Review of Systems Status of ROS: Reports: 6 or more systems reviewed and unremarkable except as noted in History and below [facility] Medical History Lumbar strain ?S39.012A - Strain of muscle, fascia and tendon of lower back, initial encounter (ICD-10) Enrolled in chronic care management ?Z78.9 - Other specified health status (ICD-10) Family history of ASCVD ?Z82.49 - Family history of ischemic heart disease and other diseases of the circulatory system (ICD-10) Family history of diabetes mellitus ?Z83.3 - Family history of diabetes mellitus (ICD-10) History of adenomatous polyp of colon ?Z86.010 - Personal history of colonic polyps (ICD-10) Melanoma ?C43.9 - Malignant melanoma of skin, unspecified (ICD-10) History of TIA (transient ischemic attack) ?Z86.73 - Personal history of transient ischemic attack (TIA), and cerebral infarction without residual deficits (ICD-10) Surgical History History of arthroplasty of both hips ?Z96.643 - Presence of artificial hip joint, bilateral (ICD-10) S/P right knee arthroscopy ?Z98.890 - Other specified postprocedural states (ICD-10) Status post ORIF of fracture of ankle ?Z98.890 - Other specified postprocedural states (ICD-10) ?Z87.81 - Personal history of (healed) traumatic fracture (ICD-10) S/P lumbar spinal fusion ?Z98.1 - Arthrodesis status (ICD-10) S/P shoulder replacement ?Z96.619 - Presence of unspecified artificial shoulder joint (ICD-10) H/O resection of rib ?Z98.890 - Other specified postprocedural states (ICD-10) History of colonoscopy ?Z98.890 - Other specified postprocedural states (ICD-10) History of bilateral total hip arthroplasty ?Z96.643 - Presence of artificial hip joint, bilateral (ICD-10) History of right inguinal hernia repair ?Z98.890 - Other specified postprocedural states (ICD-10) ?Z87.19 - Personal history of other diseases of the digestive system (ICD-10) History of thoracic outlet syndrome ?Z86.69 - Personal history of other diseases of the nervous system and sense organs (ICD-10) Family History Other Family history of ASCVD Family history of diabetes mellitus Social History Narrative: Alcohol abuse Smoking Status: Never smoker How often do you have a drink containing alcohol: 2-3 times a week How many standard drinks containing alcohol do you have on a typical day: 1 or 2 How often do you have six or more drinks on one occasion: Weekly AUDIT-C Alcohol total score: 6 Non-prescribed substance use: denies use service: No Exam Const: Vital Signs, click to edit/add: Vital Signs - 24 hr 09/26/24 11:09 09/26/24 11:23 09/26/24 11:40 Temperature 96.4 F L Pulse Rate 96 Pulse Rate [Right Pulse Oximeter] 82 Pulse Rate [orthos tatic lying Left P ulse Oximeter] Pulse Rate [orthos tatic sitting Left Pulse Oximeter] Pulse Rate [orthos tatic standing Lef t Pulse Oximeter] Respiratory Rate 18 Blood Pressure 146/103 H Blood Pressure [Ri ght Upper Arm] 91/58 L Blood Pressure [or thostatic lying Le ft Arm] Blood Pressure [or thostatic sitting Left Arm] Blood Pressure [or thostatic standing Left Arm] Pulse Oximetry 98 99 Oxygen Delivery Or thod Room Air 09/26/24 11:40 09/26/24 11:48 09/26/24 11:52 Temperature Pulse Rate 73 81 Pulse Rate [Right Pulse Oximeter] Pulse Rate [orthos tatic lying Left P ulse Oximeter] Pulse Rate [orthos tatic sitting Left Pulse Oximeter] Pulse Rate [orthos tatic standing Lef t Pulse Oximeter] Respiratory Rate Blood Pressure 146/103 H 124/74 Blood Pressure [Ri ght Upper Arm] Blood Pressure [or thostatic lying Le ft Arm] Blood Pressure [or thostatic sitting Left Arm] Blood Pressure [or thostatic standing Left Arm] Pulse Oximetry 98 95 Oxygen Delivery Me thod 09/26/24 11:54 09/26/24 11:57 09/26/24 11:59 Temperature Pulse Rate 85 74 Pulse Rate [Right Pulse Oximeter] Pulse Rate [orthos tatic lying Left P ulse Oximeter] Pulse Rate [orthos tatic sitting Left Pulse Oximeter] Pulse Rate [orthos tatic standing Lef t Pulse Oximeter] Respiratory Rate Blood Pressure 111/76 103/71 136/83 Blood Pressure [Ri ght Upper Arm] Blood Pressure [or thostatic lying Le ft Arm] Blood Pressure [or thostatic sitting Left Arm] Blood Pressure [or thostatic standing Left Arm] Pulse Oximetry 96 97 Oxygen Delivery Me thod 09/26/24 11:59 09/26/24 12:00 09/26/24 12:01 Temperature Pulse Rate 73 73 Pulse Rate [Right Pulse Oximeter] Pulse Rate [orthos tatic lying Left P ulse Oximeter] Pulse Rate [orthos tatic sitting Left Pulse Oximeter] Pulse Rate [orthos tatic standing Lef t Pulse Oximeter] Respiratory Rate Blood Pressure 134/84 Blood Pressure [Ri ght Upper Arm] Blood Pressure [or thostatic lying Le ft Arm] Blood Pressure [or thostatic sitting Left Arm] Blood Pressure [or thostatic standing Left Arm] Pulse Oximetry 98 95 95 Oxygen Delivery Me thod 09/26/24 12:31 09/26/24 12:48 09/26/24 13:38 Temperature Pulse Rate 78 Pulse Rate [Right Pulse Oximeter] Pulse Rate [orthos tatic lying Left P ulse Oximeter] 70 88 Pulse Rate [orthos tatic sitting Left Pulse Oximeter] 84 80 Pulse Rate [orthos tatic standing Lef t Pulse Oximeter] 90 76 Respiratory Rate 18 Blood Pressure 128/88 Blood Pressure [Ri ght Upper Arm] Blood Pressure [or thostatic lying Le ft Arm] 124/74 86/72 L Blood Pressure [or thostatic sitting Left Arm] 111/76 144/89 H Blood Pressure [or thostatic standing Left Arm] 103/71 171/107 H Pulse Oximetry 100 Oxygen Delivery Or thod 09/26/24 14:13 Temperature Pulse Rate Pulse Rate [Right Pulse Oximeter] Pulse Rate [orthos tatic lying Left P ulse Oximeter] 88 Pulse Rate [orthos tatic sitting Left Pulse Oximeter] 80 Pulse Rate [orthos tatic standing Lef t Pulse Oximeter] 76 Respiratory Rate Blood Pressure Blood Pressure [Ri ght Upper Arm] Blood Pressure [or thostatic lying Le ft Arm] 86/72 L Blood Pressure [or thostatic sitting Left Arm] 144/89 H Blood Pressure [or thostatic standing Left Arm] 171/107 H Pulse Oximetry Oxygen Delivery Me thod This 73-year-old male is alert, interactive, no apparent distress. Lying nearly flat in the bed in exam room 8. Has somewhat of a flat affect and masked facies but speech is normal. Does have symmetrical facial function. Lungs are clear, good air entry, no wheezing or crackles, no tachypnea. CV regular rate and rhythm, no murmur, normal S1-S2. Abdomen is soft, nontender, nondistended, no organomegaly. Strength is 5/5 and symmetric, note no resting tremor at this time. Did have nursing staff attempt orthostatic vitals right after seen him, lying his heart rate was 70 with a blood pressure 124/74; sitting pulse went 84 blood pressure was 111/76; per report on attempt of standing he started to become altered in nearly unresponsive, she had to lie him back down quickly, pulse was 90, oxygen saturation dipped briefly to 70%, blood pressure was 103/71 when he was laid back down. He was not safe to continue standing to attempt to get a standing blood pressure. Documenting provider has reviewed patient's vital signs: yes Course Course ED Course: This patient has quite profound orthostatic changes. Will give him 500 mL normal saline, attempt repeat of his orthostatic vitals. Will look at portable chest x-ray and labs. Reevaluation(s) Time of Reevaluation #1: 14:02 Reevaluation #1: Patient's labs are reassuring. Repeat orthostatics show blood pressure lying 171/107, pulse 76; sitting 144/89, heart rate 80; standing blood pressure 86/72 with a heart rate of 88. Patient revealed he was not having any symptoms, did not feel dizzy. He states that he was told to start taking the Florinef daily. He had been on this Tuesday, did take it this morning. As I am talking to him, 2nd blood pressure has cycled and is in the 180s systolic, he is asymptomatic. His Florinef is likely starting to kick in. Consultations Consultation #1: Did speak with Bucky Denise from Neurology at [facility]. Reviewed the situation. He agrees with doing the Florinef daily. He had other suggestions for the patient as follows, never lying flat, having the head of the bed elevated, drinking 1-2 full glasses of water in the morning before standing and other times throughout the day. Recommend adding bike shorts in wearing those daily, abdominal binder. These will help increase his venous return. If the floor enough is not adequate, midodrine could be added. It will likely take a few weeks to see full affects of the Florinef. Time: 14:13 Vital Signs Vital signs: Initial Vital Signs Temperature 96.4 F L 02/05/25 11:09 Temperature Source Temporal Artery Scan 09/26/24 11:09 Pulse Rate 82 09/26/24 11:09 Respiratory Rate 18 09/26/24 11:09 Blood Pressure 91/58 L 09/26/24 11:09 Blood Pressure Mean 69 L 09/26/24 11:09 Blood Pressure Position Sitting 09/26/24 11:09 Pulse Oximetry 98 09/26/24 11:09 Oxygen Delivery Method Room Air 09/26/24 11:09 Vital Signs Temperature 96.4 F L 09/26/24 11:09 Pulse Rate 82 09/26/24 11:09 Respiratory Rate 18 09/26/24 11:09 Blood Pressure 91/58 L 09/26/24 11:09 Pulse Oximetry 98 09/26/24 11:09 Oxygen Delivery Method Room Air 09/26/24 11:09 Temperature 96.4 F L 09/26/24 11:09 Pulse Rate 88 09/26/24 14:13 Respiratory Rate 18 09/26/24 12:31 Blood Pressure 86/72 L 09/26/24 14:13 Pulse Oximetry 100 09/26/24 12:31 Oxygen Delivery Method Room Air 09/26/24 11:09 Medications Administered Medications: Discontinued Medications Generic Name Dose Route Start Last Admin Trade Name Freq PRN Reason Stop Dose Admin Sodium Chloride 500 mls @ 500 mls/hr 09/26/24 12:00 09/26/24 13:35 0.9 % Sodium Chloride 500 Ml IV 09/26/24 12:59 Infused .Q1H ONE Infusion Medical Decision Making MDM Narrative Medical decision making narrative: Patient is on Florinef, can see that he was taking this 0.1 mg on Tuesday in a note from April 11 2024. He was still having dizzy spells and weakness when walking around at times or bending over or standing up. At that time he reported no interest in further interventions for his blood pressure. This was a pharm D appointment at that time to review medicines. I do not see a note from August in there but patient has an after visit summary with him. Lab Data Lab results reviewed: Yes I reviewed the patient's lab results Labs: Lab Results 09/26/24 09/26/24 09/26/24 Range/Units 11:37 12:24 12:33 WBC 4.09 L (4.50-11.00) K/uL RBC 3.43 L (4.30-5.90) m/uL Hgb 11.4 L (13.5-17.5) gm/dL Hct 33.7 L (37.0-53.0) % MCV 98 (80-100) fL MCH 33 (26-34) pg MCHC 34 (32-36) gm/dL RDW Coeff of Wallace 11.7 (11.5-15.5) % Plt Count 169 (140-440) K/uL Neut % (Auto) 64.6 (42.0-72.0) % Lymph % (Auto) 19.1 L (20-44) % Pershing % (Auto) 11.7 H (0.0-11.0) % Eos % (Auto) 3.9 (0.0-7.0) % Baso % (Auto) 0.2 (0.0-3.0) % Neut # (Auto) 2.60 (1.7-7.0) K/uL Lymph # (Auto) 0.80 L (0.90-2.90) K/uL Pershing # (Auto) 0.50 (0.00-0.90) K/UL Eos # (Auto) 0.20 (0.00-0.50) K/uL Baso # (Auto) 0.00 (0.00-0.30) K/uL Abs Immat Gran (auto) 0.00 (0.00-0.30) K/uL Imm/Tot Granulo (auto) 0.5 % D-Dimer Quant (PE/DVT) 0.39 (0.00-0.50) ug/ml VBG pH 7.365 (7.32-7.43) VBG pCO2 51 H (40-50) mmHG VBG pO2 49.0 H (25-47) mmHG VBG HCO3 29 H (21-28) mmol/L Sodium 133 L (135-149) mmol/L Potassium 4.6 (3.6-5.1) mmol/L Chloride 98 (96-114) mmol/L Carbon Dioxide 26 (20-32) mmol/L Anion Gap 9 (7-15) mEq/L BUN 30 (7-30) mg/dL Creatinine 1.4 (0.5-1.5) mg/dL Estimated Creat Clear 54.49 Estimated GFR 52 ml/min Glucose 108 (60-115) mg/dL Lactate 1.7 (0.5-1.9) mmol/L Calcium 9.2 (8.4-10.6) mg/dL Magnesium 1.9 (1.5-2.6) mg/dL Total Bilirubin 0.8 (0.1-1.5) mg/dL AST 25 (12-35) U/L ALT 6 (4-50) U/L Alkaline Phosphatase 31 L (40-150) U/L Troponin I < 0.01 L (0.01-0.04) ng/mL C-Reactive Protein < 0.5 L (0.5-1.0) mg/dL NT-Pro-B Natriuret Pep 227 pg/mL Total Protein 6.6 (6.0-8.3) g/dL Albumin 4.1 (3.3-5.0) g/dL SARS-CoV-2 (PCR) Negative SARS-CoV-2 (Negative) Influenza Type A (PCR) Negative PCR FLU A (Negative) Influenza Type B (PCR) Negative PCR FLU B (Negative) RSV (PCR) Negative PCR RSV (Negative) POC Troponin I 0.01 (0.01-0.04) ng/ml Discharge Plan Discharge Clinical Impression: Parkinson's disease, Autonomic orthostatic hypotension Patient Disposition: Home, Self-Care Condition: Stable Instructions: Parkinson Disease (ED), Hypotension (ED) Additional Instructions: Take the Florinef daily but no that it may take 1-2 weeks for full affects of this to be seen. Neurology recommends that you have a full 1-2 glasses of water next to your bedside and drink this before attempting to stand every morning. They also recommend that you never lie flat, your head of the bed should be elevated some. The also recommend wearing bike shorts, consider wearing an abdominal binder. The bike shorts in the abdominal binder can help with venous return in increase the blood pressure. Follow-up with Dr. Erickson in clinic within the next 1-2 weeks or before if concerns. The orthostatic hypotension is unfortunately part of Parkinson's for some patients like yourself. Hopefully with taking the Florinef daily, you will have decreased symptoms. Prescriptions: No Action multivitamin [Daily Multi-Vitamin] Tablet 1 tab PO QDAY omega-3 fatty acids 1,250 mg capsule 1,250 mg PO QDAY carbidopa-levodopa 50-200 mg tablet extended release 1 tab PO QPM gabapentin 300 mg capsule 600 mg PO QHS carbidopa-levodopa 25-100 mg tablet 2 tab PO .ud Rx Instructions: 2 tabs qam/ 2 tabs in afternoon/ 1 tab qpm buspirone 30 mg tablet 30 mg PO BID Qty: 60 5RF duloxetine 60 mg capsule,delayed release(DR/EC) 60 mg PO QDAY Qty: 90 1RF allopurinol 300 mg tablet 300 mg PO DAILY Qty: 90 3RF pravastatin 40 mg tablet 40 mg PO QDAY Qty: 90 3RF fludrocortisone 0.1 mg tablet 0.1 mg PO QDAY Qty: 90 3RF Rx Instructions: 1 tablet daily Creon 24,000-76,000 -120,000 unit capsule,delayed release(DR/EC) 1 cap PO 3XD Qty: 270 6RF tamsulosin 0.4 mg capsule 0.4 mg PO QDAY Qty: 90 3RF finasteride 5 mg tablet 5 mg PO QDAY Qty: 90 3RF clonazepam 1 mg tablet 1 mg PO QHS Qty: 75 0RF Follow Up/Referrals: Lino Erickson MD [Primary Care Provider] - Stand Alone Forms: [facility] Info Instructions
--- NOTE | 2024-09-26 12:00 | CRLHL7_ITS ---
For Patients: As a result of the Cures Act, medical imaging exams and procedure reports are released immediately into your electronic medical record. You may view this report before your referring provider. If you have questions, please contact your health care provider. INDICATION: Hypotensive COMPARISON: July 20, 2024 TECHNIQUE: Single view study FINDINGS: TUBES AND LINES: None. HEART AND MEDIASTINUM: Mildly enlarged heart similar to the prior study. LUNGS AND PLEURAL SPACES: The lungs appear normal.The pleural spaces are unremarkable. OSSEOUS STRUCTURES: Age-appropriate appearance. No acute focal finding.Bilateral shoulder arthroplasties. IMPRESSION: No evidence of active pulmonary disease when compared to July 20, 2024 Dictated by Keyur Martínez MD @ 09/26/2024 12:18:49 PM (Electronically Signed)
[2024-09-26 12:13] LABS: Lactate* 1.7 mmol/L (0.5-1.9)
[2024-09-26 12:14] LABS: HCO3 VBG 29 mmol/L (21-28); PCO2 VBG 51 mmHG (40-50); pH VBG 7.365 (7.32-7.43)
[2024-09-26 12:15] LABS: Basophils Percent Auto 0.2 % (0.0-3.0); Eosinophils Percent Auto 3.9 % (0.0-7.0); Hematocrit 33.7 % (37.0-53.0); Hemoglobin* 11.4 gm/dL (13.5-17.5); Immature Granulocytes Pct Auto 0.5 %; Lymphocytes Percent Auto 19.1 % (20-44); Mean Corpuscular HGB Conc 34 gm/dL (32-36); Mean Corpuscular Hemoglobin 33 pg (26-34); Mean Corpuscular Volume 98 fL (80-100); Monocytes Percent Auto 11.7 % (0.0-11.0); Neutrophils Percent Auto 64.6 % (42.0-72.0); Platelet Count* 169 K/uL (140-440); RDW Coefficient of Variation % 11.7 % (11.5-15.5); Red Blood Count 3.43 m/uL (4.30-5.90); White Blood Count* 4.09 K/uL (4.50-11.00)
--- OUTSIDE RECORDS SUMMARY | 2024-09-26 12:16 | XMS_ITS | Encounter Summary ---
Author Organization [facility] Address [address] [place] [address] Care Team Providers Care Asphalt Spreader Name Role Phone Andrew Erickson MD Primary Care Provider [phone] Sandoval Boggs MD Unavailable [phone] Jordan Erickson MD Unavailable [phone] Essence Wise [facility] Unavailable [phone] Heidy Harrell DO Unavailable [phone] Heidy Harrell DO Unavailable [phone] Essence Wise [facility] Unavailable [phone] Pablito Paulson MD Unavailable Phuc Cruz MD Unavailable [phone] Encounter Details Date Type Department Care Team (Late st Contact Info) Description 09/26/2024 External Order Results [facility] [address] [place] [address] Outside, Provider Social History Tobacco Use Types Packs/Day Years Used Date Smoking Tobacco: Former Cigarettes Q uit: 1982 Smokeless Tobacco: Never Alcohol Use Standard Drinks/Week Comments Not Currently 15 (1 standard drink = 0.6 oz pu re alcohol) PHQ-2 Answer Date Recorded PHQ-2 Score 0 09/02/2023 Adolescent Education Answer Date Record ed Getting School Help Needed Not on file 06/04 Sex and Gender Information Value Date Recorded Sex Assigned at Male 04/09/2020 8:36 AM CDT Legal Sex Male 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 [address] [place] [phone] Phuc Cruz MD [address] [place], [place] [address] 11/06/2024 9:00 AM CDT Office Visit [facility] [address] [place] [phone] Phuc Cruz MD [address] [place], [place] [id number] 01/16/2025 12:45 PM CDT Office Visit 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 documented in this encounter Results * (ABNORMAL) Basic metabolic panel (07/20/2024 11:16 PM CRUSHER AND BINDER OPERATOR) Sodium (External) 138 135 - 149 mmol/L NON-INTERFACED (ONBASE SCANS) Potassium (External) 4.8 3.6 - 5.1 mmol/L NON-INTERFACED (ONBASE SCANS) Chloride (External) 92(L) 96 - 114 mmol/L NON-INTERFACED (ONBASE SCANS) CO2 (External) 29 20 - 32 meq/L NON-INTERFACED (ONBASE SCANS) Anion Gap (External) 9 7 - 15 meq/L NON-INTERFACED (ONBASE SCANS) Urea Nitrogen (External) 38(H) 7 - 30 mg/dl NON-INTERFACED (ONBASE SCANS) Creatinine (External) 2.1(H) 0.5 - 1.5 mg/dL NON-INTERFACED (ONBASE SCANS) GFR Estimated (External) 32 ml/min/1.7 3m2 NON-INTERFACED (ONBASE SCANS) Blood BLOOD SPECIMEN / Unknown 07/20/2024 11:16 PM CRUSHER AND BINDER OPERATOR Narrative [facility]FT - 07/20/2024 11:16 PM [employer]USHER AND BINDER OPERATOR Verified by Feliberto Rankin on 09/26/2024. us Provider Outside LAB - BLOOD ORDERABLES Edited R esult - Final NIKOLE PFT NON-INTERFACED (ONBASE SCANS) documented in this encounter Visit Diagnoses Not on filedocumented in this encounter Additional Health Concerns Assessment Noted Time PHQ-9 Depression Total Score: 14 021 7:02 AM CDT documented as of this encounter Care Teams Asphalt Spreader Relationship Specialty Start Date End Date Andrew Erickson MD PCP - General Family Practice 11/12/17 Sandoval Boggs MD [address] [place] [address] [id number] Clinical Neurophysiology 11/03/18 Jordan Erickson MD [address] [address] 11/03/18 Essence Wise, [facility] [address] [place] [id number] Pharmacist Pharmacist 10/11/21 Heidy Harrell DO [address] [place] [address] [phone] Neurology 09/28/21 Heidy Harrell DO [address] [place] [address] [phone] Assigned Neuroscience Provider 04/17/22 Essence Wise, [facility] [address] [place] [address] Assigned MTM Pharmacist 10/14/23 Pablito Paulson MD [address] [place] [address] [id number] Assigned Pulmonology Provider 03/13/24 Phuc Cruz MD [address] [place] [id number] Cardiovascular Disease 09/20/24 documented as of this encounter
--- OUTSIDE RECORDS SUMMARY | 2024-09-26 12:16 | XMS_ITS | Encounter Summary ---
Author Organization [place] Address [address] [facility] [place] [address] Care Team Providers Care Database Tester Name Role Phone Andrew Erickson MD Primary Care Provider [phone] Sandoval Boggs MD Unavailable [phone] Jordan Erickson MD Unavailable [phone] Erich Gillette MD Unavailable [phone] Essence Wise [facility] Unavailable +[phone] Heidy Harrell DO Unavailable +[phone] Heidy Harrell DO Unavailable [phone] Essence Wise [facility] Unavailable +[phone] Pablito Paulson MD Unavailable Phuc Cruz MD Unavailable +[phone] Encounter Details Date Type Department Care Team (Late st Contact Info) Description 02/22/2024 [facility] Medical Advice [facility] [address] [address] Elena Menchaca Social History Tobacco Use Types Packs/Day Years Used Date Smoking Tobacco: Former Cigarettes Q uit: 1982 Smokeless Tobacco: Never Alcohol Use Standard Drinks/Week Comments Yes 15 (1 standard drink = 0.6 oz pure alcohol) (3 drinks 4-5 times/week, usually vodka) PHQ-2 Answer Date Recorded PHQ-2 Score 0 09/02/2023 Adolescent Education Answer Date Record ed Getting School Help Needed Not on file 06/04 Sex and Gender Information Value Date Recorded Sex Assigned at Male 04/09/2020 8:36 AM CDT 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 Gender Identity Male 04/09/2020 8:36 AM CDT Sexual Orientation Straight 04/09/2020 8: 36 AM CDT documented as of this encounter Plan of Treatment Upcoming Encounters Date Type Department Care Team (Late st Contact Info) Description 10/31/2024 7:30 AM CDT Appointment [facility] Specialty Care [address] [facility] [address] [place] [address] Phuc Cruz MD [address] [place], [place] [address] 11/06/2024 9:00 AM CDT Office Visit [facility] Heart [facility] [address] [facility] [address] [place] [phone] Phuc Cruz MD [address] [place], [place] [address] 01/16/2025 12:45 PM CDT Office Visit [facility] Neurology [facility] [address] [place] [phone] Lary Schmitz, DIRECTOR PHARMACOLOGY [address] [address] documented as of this encounter Visit Diagnoses Not on filedocumented in this encounter Additional Health Concerns Assessment Noted Time PHQ-9 Depression Total Score: 14 021 7:02 AM CDT documented as of this encounter Care Teams Database Tester Relationship Specialty Start Date End Date Andrew Erickson MD PCP - General Family Practice 11/12/17 Sandoval Boggs MD [address] [place] [address] Clinical Neurophysiology 11/03/18 Jordan Erickson MD [facility] [address] [place] [address] 11/03/18 Erich Gillette MD [address] [place] [address] Assigned Sleep Provider 06/13/20 06/12/24 Essence Wise [facility] [address] [place] [address] Pharmacist Pharmacist 06/01/21 Heidy Harrell DO [address] [place] [address] Neurology 09/28/21 Heidy Harrell DO [address] [place] [address] Assigned Neuroscience Provider 04/17/22 Essence Wise [facility] [address] [place] [address] Assigned MTM Pharmacist 10/14/23 Pablito Paulson MD [address] [place] [address] Assigned Pulmonology Provider 03/13/24 Phuc Cruz MD [address] [place] [address] Cardiovascular Disease 09/20/24 documented as of this encounter
--- OUTSIDE RECORDS SUMMARY | 2024-09-26 12:16 | XMS_ITS | Encounter Summary ---
Author Organization [place] Address [address] [place] [address] Care Team Providers Care Ironmolder Name Role Phone Andrew Erickson MD Primary Care Provider [phone] Sandoval Boggs MD Unavailable [phone] Jordan Erickson MD Unavailable [phone] Sandoval Boggs MD Unavailable [phone] Erich Gillette MD Unavailable [phone] Essence Wise [facility] Unavailable +[phone] Manish Catherine PA-C Unavailable +[phone] Heidy Harrell DO Unavailable +[phone] Heidy Harrell DO Unavailable [phone] Essence Wise [facility] Unavailable +[phone] Heidy Harrell DO Unavailable [phone] Essence Wise [facility] Unavailable [phone] Essence Wise [facility] Unavailable [phone] Pablito Paulson MD Unavailable Phuc Cruz MD Unavailable [phone] Encounter Details Date Type Department Care Team (Late st Contact Info) Description 12/29/2020 [facility] Medical [facility] Sleep [address], [address] [place] [phone] Latonia Madden Social History Tobacco Use Types Packs/Day Years Used Date Smoking Tobacco: Never Smokeless Tobacco: Never Alcohol Use Standard Drinks/Week Comments Yes 0 (1 standard drink = 0.6 oz pur e alcohol) occas PHQ-2 Answer Date Recorded PHQ-2 Score 2 08/28/2019 Sex and Gender Information Value Date Recorded Sex Assigned at Male 04/09/2020 8:36 AM CDT 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 Specialty Care [address] [facility] [address] [place] [address] Phuc Cruz MD [address] [place] [address] 11/06/2024 9:00 AM CDT Office Visit [facility] [place] [address] [facility] [address] [place] [phone] Phuc Cruz MD [address] [place] [address] 01/16/2025 12:45 PM CDT Office Visit [facility] Neurology Clinic [facility] [address] [place] [phone] Lary Schmitz, AUTOMOBILE SERVICE STATION MANAGER [facility] [address] [facility] [id number] [address] documented as of this encounter Visit Diagnoses Not on filedocumented in this encounter Additional Health Concerns Assessment Noted Time PHQ-9 Depression Total Score: 12 020 6:56 AM SET BUILDER documented as of this encounter Care Teams Ironmolder Relationship Specialty Start Date End Date Andrew Erickson MD PCP - General Family Practice 11/12/17 Sandoval Boggs MD [address] [place] [address] Clinical Neurophysiology 11/03/18 Jordan Erickson MD [address] [address] 11/03/18 Sandoval Boggs MD [address] [place] [address] Assigned Neuroscience Provider 06/13/20 09/19/21 Erich Gillette MD [address] [facility] [address] [place] [address] Assigned Sleep Provider 06/13/20 06/12/24 Essence Wise, [facility] [address] [place] [address] Pharmacist Pharmacist 06/01/21 Manish Catherine PA-C [address] [facility] [address] [place] [address] Assigned Neuroscience Provider 09/20/21 11/14/21 Heidy Harrell DO [address] [place] [address] Neurology 09/28/21 Heidy Harrell DO [address] [place] [address] Assigned Neuroscience Provider 04/17/22 Essence Wise [facility] [address] [place] [address] Assigned MTM Pharmacist 01/16/22 05/07/22 Heidy Harrell DO [address] [place] [address] Assigned Neuroscience Provider 11/15/21 04/16/22 Essence Wise [facility] [address] [place] [address] Assigned MTM Pharmacist 05/19/22 07/01/23 Essence Wise [facility] [address] [place] [address] Assigned MTM Pharmacist 10/14/23 Pablito Paulson MD [address] [place] [address] Assigned Pulmonology Provider 03/13/24 Phuc Cruz MD [address] [place] [address] Cardiovascular Disease 09/20/24 documented as of this encounter
--- OUTSIDE RECORDS SUMMARY | 2024-09-26 12:16 | XMS_ITS | Encounter Summary ---
Author Organization [place] Address [address] [facility] [place] [address] Care Team Providers Care Mechanism Assembler Name Role Phone Andrew Erickson MD Primary Care Provider [phone] Sandoval Boggs MD Unavailable [phone] Jordan Erickson MD Unavailable [phone] Erich Gillette MD Unavailable [phone] Essence Wise [facility] Unavailable +[phone] Heidy Harrell DO Unavailable [phone] Heidy Harrell DO Unavailable [phone] Essence Wise 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 Specialty Care [address] [facility] [address] [place] [phone] Phuc Cruz MD [address] [place], [place] [address] 11/06/2024 9:00 AM CDT Office Visit [facility] Heart [facility] [address] [facility] [address] [place] [phone] Phuc Cruz MD [address] [place], [place] [address] 01/16/2025 12:45 PM CDT Office Visit [facility] Neurology Clinic [facility] [address] [place] [address] Lary Schmitz H, CHIEF ENGINEER RESEARCH FINISHING TRIMMER [address] [facility] [id number] [place], [place] [address] documented as of this encounter Visit Diagnoses Not on filedocumented in this encounter Additional Health Concerns Assessment Noted Time PHQ-9 Depression Total Score: 14 021 7:02 AM CDT documented as of this encounter Care Teams Mechanism Assembler Relationship Specialty Start Date End Date Andrew Erickson MD PCP - General Family Practice 11/12/17 Sandoval Boggs MD [address] [place] [address]128[address] Clinical Neurophysiology 11/03/18 Jordan Erickson MD [address] [address] 11/03/18 Erich Gillette MD [address] [address] Assigned Sleep Provider 06/13/20 06/12/24 Essence Wise [facility] [address] [place] [address] Pharmacist Pharmacist 06/01/21 Heidy Harrell DO [address] [place] [address] Neurology 09/28/21 Heidy Harrell DO [address] [place] [address] Assigned Neuroscience Provider 04/17/22 Essence Wise [facility] [address] [place] [address] Assigned MTM Pharmacist 10/14/23 Pablito Paulson MD [address] [place] [address] Assigned Pulmonology Provider 03/13/24 Phuc Cruz MD [address] [place] [address] Cardiovascular Disease 09/20/24 documented as of this encounter
--- OUTSIDE RECORDS SUMMARY | 2024-09-26 12:16 | XMS_ITS | Encounter Summary ---
Author Organization [place] Address [address] [place] [address] Care Team Providers Care Medical Lab Technician Name Role Phone Andrew Erickson MD Primary Care Provider [phone] Sandoval Boggs MD Unavailable [phone] Jordan Erickson MD Unavailable [phone] Sandoval Boggs MD Unavailable [phone] Erich Gillette MD Unavailable [phone] Essence Wise [facility] Unavailable +[phone] Manish Catherine PA-C Unavailable +[phone] Heidy Harrell DO Unavailable [phone] Heidy Harrell DO Unavailable [phone] Essence Wise [facility] Unavailable [phone] Heidy Harrell DO Unavailable [phone] Essence Wise [facility] Unavailable [phone] Essence Wise [facility] Unavailable [phone] Pablito Paulson MD Unavailable Phuc Cruz MD Unavailable +[phone] Encounter Details Date Type Department Care Team (Late st Contact Info) Description 06/01/2021 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 [address] [facility] [address] [place] [phone] Phuc Cruz MD [address] [place] [address] 01/16/2025 12:45 PM CDT Office Visit [facility] Neurology Clinic [facility] [address] [place] [phone] Lary Schmitz, HOUSEHOLD APPLIANCE ASSEMBLER SOLAR SYSTEM INSTALLER [address] [facility] [id number] [place] [address] documented as of this encounter Visit Diagnoses Not on filedocumented in this encounter Additional Health Concerns Assessment Noted Time PHQ-9 Depression Total Score: 14 021 7:02 AM CDT documented as of this encounter Care Teams Medical Lab Technician Relationship Specialty Start Date End Date Andrew Erickson MD PCP - General Family Practice 11/12/17 Sandoval Boggs MD [address] [place] [address] Clinical Neurophysiology 11/03/18 Jordan Erickson MD [address] [address] 11/03/18 Sandoval Boggs MD [address] [place] [address] Assigned Neuroscience Provider 06/13/20 09/19/21 Erich Gillette MD [address] [facility] [address] [address] Assigned Sleep Provider 06/13/20 06/12/24 Essence Wise, [facility] [address] [place] [address] Pharmacist Pharmacist 06/01/21 Manish Catherine PA-C [address] [facility] [address] [address] Assigned Neuroscience Provider 09/20/21 11/14/21 Heidy Harrell DO [address] [place] [address] Neurology 09/28/21 Heidy Harrell DO [address] [place] [address] Assigned Neuroscience Provider 04/17/22 Essence Wise [facility] [address] [place] [address] Assigned MTM Pharmacist 01/16/22 05/07/22 Heidy Harrell DO [address] [place] [address] Assigned Neuroscience Provider 11/15/21 04/16/22 Essence Wise [facility] [address] [place] [address] Assigned MTM Pharmacist 05/19/22 07/01/23 Essence Wise [facility] [address] [place] [address] Assigned MTM Pharmacist 10/14/23 Pabltio Paulson MD [address] [place] [address] Assigned Pulmonology Provider 03/13/24 Phuc Cruz MD [address] [place] [address] Cardiovascular Disease 09/20/24 documented as of this encounter
--- OUTSIDE RECORDS SUMMARY | 2024-09-26 12:16 | XMS_ITS | Encounter Summary ---
Author Organization [place] Address [address] [place] [address] Care Team Providers Care Multimedia Technician Name Role Phone Andrew Erickson MD Primary Care Provider [phone] Sandoval Boggs MD Unavailable [phone] Jordan Erickson MD Unavailable [phone] Essence Wise [facility] Unavailable [phone] Heidy Harrell DO Unavailable [phone] Heidy Harrell DO Unavailable [phone] Essence Wise [facility] Unavailable [phone] Pablito Paulson MD Unavailable Phuc Cruz MD Unavailable [phone] Encounter Details Date Type Department Care Team (Late st Contact Info) Description 07/20/2024 External Order Results [facility]ly [facility] [address] [place] [address] Outside, Provider Social History Tobacco Use Types [...] AM CDT 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 Gender Identity Male 04/09/2020 8:36 AM CDT Sexual Orientation Straight 04/09/2020 8: 36 AM CDT documented as of this encounter Plan of Treatment Upcoming Encounters Date Type Department Care Team (Late st Contact Info) Description 10/31/2024 7:30 AM CDT Appointment [facility] Specialty Care [address] [facility] [address] [place] [phone] Phuc Cruz MD [address] [place], [place] [address] 11/06/2024 9:00 AM CDT Office Visit [facility] [address] [facility] [address] [place] [phone] Phuc Cruz MD [address] [place] [address] 01/16/2025 12:45 PM CDT Office Visit [facility] Neurology [address] [phone] Lary Schmitz, COMPLAINT ANALYST [facility] [address] [facility] [place], [place] [address] documented as of this encounter Procedures Procedure Name Priority Date/Time Associated Diagnosis Comments EXTERNAL LAB RESULTS Routine 07/20/2024 11:16 PM PROGRAMMER ENGINEERING AND SCIENTIFIC HEPATIC FUNCTION PANEL Routine 07/20/2024 11:16 PM PROGRAMMER ENGINEERING AND SCIENTIFIC CRP INFLAMMATION Routine 07/20/2024 11:1 6 PM PROGRAMMER ENGINEERING AND SCIENTIFIC CREATININE Routine 07/20/2024 11:16 PM PROGRAMMER ENGINEERING AND SCIENTIFIC CK TOTAL Routine 07/20/2024 11:16 PM PROGRAMMER ENGINEERING AND SCIENTIFIC CALCIUM Routine 07/20/2024 11:16 PM PROGRAMMER ENGINEERING AND SCIENTIFIC GLUCOSE Routine 07/20/2024 11:16 PM PROGRAMMER ENGINEERING AND SCIENTIFIC EXTERNAL LAB RESULTS Routine 07/20/2024 2:00 AM PROGRAMMER ENGINEERING AND SCIENTIFIC documented in this encounter Results * (ABNORMAL) Creatinine (07/20/2024 11:16 PM PROGRAMMER ENGINEERING AND SCIENTIFIC) Creatinine (External) 2.1(H) 0.5 - 1.5 mg/dL NON-INTERFACED (ONBASE SCANS) Blood BLOOD SPECIMEN / Unknown 07/20/2024 11:16 PM PROGRAMMER ENGINEERING AND SCIENTIFIC Narrative BREEZE PFT - 09/26/2024 10:56 AM PROGRAMMER ENGINEERING AND SCIENTIFIC Verified by Harris Mark on 09/26/2024. Provider Outside LAB - BLOOD ORDERABLES Edited R [facility] BREEZE PFT NON-INTERFACED (ONBASE SCANS) * Calcium (07/20/2024 11:16 PM PROGRAMMER ENGINEERING AND SCIENTIFIC) Pathologist [facility] Calcium (External) 9.2 0.4 - 10.6 mg/dl NON-INTERFACED (ONBASE SCANS) Blood BLOOD SPECIMEN / Unknown 07/20/2024 11:16 PM PROGRAMMER ENGINEERING AND SCIENTIFIC Narrative BREEZE PFT - 09/26/2024 10:56 AM PROGRAMMER ENGINEERING AND SCIENTIFIC Verified by Harris Mark on 09/26/2024. Provider Outside LAB - BLOOD ORDERABLES Edited R [facility] - [facility] BREEZE PFT NON-INTERFACED (ONBASE SCANS) * Glucose (07/20/2024 11:16 PM PROGRAMMER ENGINEERING AND SCIENTIFIC) Glucose (External) 96 60 - 115 mg/dL NON-INTERFACED (ONBASE SCANS) Blood BLOOD SPECIMEN / Unknown 07/20/2024 11:16 PM PROGRAMMER ENGINEERING AND SCIENTIFIC Narrative BREEZE PFT - 09/26/2024 10:56 AM PROGRAMMER ENGINEERING AND SCIENTIFIC Verified by Harris Mark on 09/26/2024. Provider Outside LAB - BLOOD ORDERABLES Edited [facility] Performing Organization Address [facility] Co de Phone Number NIKOLE PFT NON-INTERFACED (ONBASE SCANS) * (ABNORMAL) Hepatic function panel (07/20/2024 11:16 PM PROGRAMMER ENGINEERING AND SCIENTIFIC) Protein Total (External) 7.1 6.0 - 8.3 g/dL NON-INTERFACED (ONBASE SCANS) Albumin (External) 4.4 3.3 - 5.0 g/dL NON-INTERFACED (ONBASE SCANS) Bilirubin Total (External) 0.2 0.1 - 1.5 mg/dL NON-INTERFACED (ONBASE SCANS) Bilirubin Direct (External) 0.2 0.0 - 0.5 mg/dL NON-INTERFACED (ONBASE SCANS) AST (External) 41(H) 12 - 35 U/L NON-INTERFACED (ONBASE SCANS) ALT (External) 6 4 - 50 U/L NON- INTERFACED (ONBASE SCANS) Alk Phosphatase (External) 46 40 - 150 U/L NON-INTERFACED (ONBASE SCANS) Blood BLOOD SPECIMEN / Unknown 07/20/2024 11:16 PM PROGRAMMER ENGINEERING AND SCIENTIFIC Narrative BREEZE PFT - 09/26/2024 10:56 AM PROGRAMMER ENGINEERING AND SCIENTIFIC Verified by Harris Mark on 09/26/2024. Provider Outside LAB - BLOOD ORDERABLES Edited [facility] NIKOLE PFT NON-INTERFACED (ONBASE SCANS) * CK total (07/20/2024 11:16 PM PROGRAMMER ENGINEERING AND SCIENTIFIC) Pathologist [facility] CK (External) 153 54 - 186 U/L NON-INTERFACED (ONBASE SCANS) Blood BLOOD SPECIMEN / Unknown 07/20/2024 11:16 PM PROGRAMMER ENGINEERING AND SCIENTIFIC Narrative BREEZE PFT - 09/26/2024 10:56 AM PROGRAMMER ENGINEERING AND SCIENTIFIC Verified by Harris Mark on 09/26/2024. us Provider Outside LAB - BLOOD ORDERABLES Edited R [facility] - [facility] Performing Organization Address [facility] de Phone Number SERENITYEZE PFT NON-INTERFACED (ONBASE SCANS) * (ABNORMAL) CRP inflammation (07/20/2024 11:16 PM PROGRAMMER ENGINEERING AND SCIENTIFIC) CRP Inflammation (External) 3.2(H) 0.5 - 1.0 mg/dL NON-INTERFACE D (ONBASE SCANS) Blood BLOOD SPECIMEN / Unknown 07/20/2024 11:16 PM PROGRAMMER ENGINEERING AND SCIENTIFIC Narrative BREEZE PFT - 09/26/2024 10:56 AM PROGRAMMER ENGINEERING AND SCIENTIFIC Verified by Harris Mark on 09/26/2024. us Provider Outside LAB - BLOOD ORDERABLES Edited R [facility] Performing Organization Address [facility] de Phone Number BREEZE PFT NON-INTERFACED (ONBASE SCANS) * (ABNORMAL) External Lab Results (07/20/2024 11:16 PM PROGRAMMER ENGINEERING AND SCIENTIFIC) Scan Lab Results (External) See scanned multiple lab report(A) NON-INTERFACE D (ONBASE SCANS) Comment: Salicylate Acetamin Ethanol 07/20/2024 11:1 6 PM PROGRAMMER ENGINEERING AND SCIENTIFIC Narrative BREEZE PFT - 09/26/2024 10:56 AM PROGRAMMER ENGINEERING AND SCIENTIFIC Verified by Harris Mark on 09/26/2024. us Provider Outside LABORATORY Edited Result - Final Performing Organization Address [facility]/ZIP Co de Phone Number ELVIRAE PFT NON-INTERFACED (ONBASE SCANS) * External Lab Results (07/20/2024 2:00 AM PROGRAMMER ENGINEERING AND SCIENTIFIC) Scan Lab Results (External) See Scanned Report NON-INTERFACE D (ONBASE SCANS) Comment:Urine Drug Screen 07/20/2024 2:00 AM PROGRAMMER ENGINEERING AND SCIENTIFIC Narrative BREEZE PFT - 09/26/2024 10:56 AM PROGRAMMER ENGINEERING AND SCIENTIFIC Verified by Harris Mark on 09/26/2024. us Provider Outside LABORATORY Edited Result - Final NIKOLE PFT NON-INTERFACED (ONBASE SCANS) documented in this encounter Visit Diagnoses Not on filedocumented in this encounter Additional Health Concerns Assessment Noted Time PHQ-9 Depression Total Score: 14 021 7:02 AM CDT documented as of this encounter Care Teams Multimedia Technician Relationship Specialty Start Date End Date Andrew Erickson MD PCP - General Family Practice 11/12/17 Sandoval Boggs MD [address] [place] [address] Clinical Neurophysiology 11/03/18 Jordan Erickson MD [address] [address] 11/03/18 Essence Wise [facility] [address] [place] [address] Pharmacist Pharmacist 06/01/21 Heidy Harrell DO [address] [place] [address] Neurology 09/28/21 Heidy Harrell DO [address] [place] [address] Assigned Neuroscience Provider 04/17/22 Essence Wise [facility] [address] [place] [address] Assigned MTM Pharmacist 10/14/23 Pablito Paulson MD [address] [place] [address] Assigned Pulmonology Provider 03/13/24 Phuc Cruz MD [address] [place] [address] Cardiovascular Disease 09/20/24 documented as of this encounter
--- OUTSIDE RECORDS SUMMARY | 2024-09-26 12:16 | XMS_ITS | Encounter Summary ---
Author Organization [place] Address [address] [facility] [place] [address] Care Team Providers Care New Vehicle Sales Consultant Name Role Phone Andrew Erickson MD Primary Care Provider [phone] Sandoval Boggs MD Unavailable [phone] Jordan Erickson MD Unavailable [phone] Essence Wise [facility] Unavailable [phone] Heidy Harrell DO Unavailable [phone] Heidy Harrell DO Unavailable [phone] Essence Wise [facility] Unavailable [phone] Pablito Paulson MD Unavailable Phuc Cruz MD Unavailable [phone] Reason for Visit * Reason Onset Date Comments Labs Only 09/25/2024 Encounter Details Date Type Department Care Team (Late st Contact Info) Description 09/25/[address] [facility] [address] [place] [address] Vanesa Cooper, RN Labs Only Social History Tobacco Use Types Packs/Day Years Used Date Smoking Tobacco: Former Cigarettes Q uit: 1981 Smokeless Tobacco: Never Alcohol Use Standard Drinks/Week Comments Not Currently 15 (1 standard drink = 0.6 oz pu re alcohol) PHQ-2 Answer Date Recorded PHQ-2 Score 0 09/02/2023 Adolescent Education Answer Date Record ed Getting School Help Needed Not on file 06/04 Sex and Gender Information Value Date Recorded Sex Assigned at Male 04/09/2020 8:36 AM CDT Legal Sex Male 3:26 AM CLIENT SUCCESS MANAGER Gender Identity Male 04/09/2020 8:36 AM CDT Sexual Orientation Straight 04/09/2020 8: 36 AM CDT documented as of this encounter Miscellaneous Notes * Telephone Encounter - Tami Agarwal RN - 09/26/2024 8:45 AM CLIENT SUCCESS MANAGER Images from the original note were not included. Phuc Cruz MD Hiljus, Audrey G, RN10 hours ago (10:31 PM) Thank you. Lab looks good. NT SUCCESS MANAGER * Telephone Encounter - Vanesa Cooper RN - 09/25/2024 11:39 AM CST Images from the original note were not included. Labs received, Dr Cruz updated. NT SUCCESS MANAGER * Telephone Encounter - Vanesa Cooper RN - 09/25/2024 10:13 AM CST ----- Message from Phuc Cruz sent at 09/25/2024 10:08 AM CLIENT SUCCESS MANAGER ----- I have no recent lab on this gentleman. He follows down in [place]. Please obtain what ever lab work he has. [place] records are in CareEverywhere, no labs visible since 2019. Called patient to see if he has had any blood work done more recently, says he has had many labs through Dr Erickson's office since then. Called [place] [facility], patient had comprehensive lab work in Jun/Jul. They will fax overthe results. NT SUCCESS MANAGER NT SUCCESS MANAGER documented in this encounter Plan of Treatment Upcoming Encounters Date Type Department Care Team (Late st Contact Info) Description 10/31/2024 7:30 AM CDT Appointment [facility] Specialty Care [address] [facility] [address] [place] [phone] Phuc Cruz MD [address] [place] [id number] 11/06/2024 9:00 AM CDT Office Visit [facility] Heart [facility] [address] [facility] [address] [place] [phone] Phuc Cruz MD [address] [place], [place] [phone] 01/16/2025 12:45 PM CDT Office Visit [facility] Neurology [facility] [address] [place] [address] Lary Schmitz, SENIOR BUYER CLIENT SOLUTIONS DIRECTOR [address] [facility] [id number] [place], [place] [address] documented as of this encounter Visit Diagnoses Not on filedocumented in this encounter Additional Health Concerns Assessment Noted Time PHQ-9 Depression Total Score: 14 021 7:02 AM CDT documented as of this encounter Care Teams New Vehicle Sales Consultant Relationship Specialty Start Date End Date Andrew Erickson MD PCP - General Family Practice 11/12/17 Sandoval Boggs MD [address] [place] [phone] Clinical Neurophysiology 11/03/18 Jordan Erickson MD [facility] [address] [place] [address] 11/03/18 Essence Wise [facility] [address] [place] [address] Pharmacist Pharmacist 06/01/21 Heidy Harrell DO [address] [place] [phone] Neurology 09/28/21 Heidy Harrell DO [address] [place] [address] [phone] Assigned Neuroscience Provider 04/17/22 Essence Wise [facility] [address] [place] [address] Assigned MTM Pharmacist 10/14/23 Pablito Paulson MD [address] [place] [address] [phone] Assigned Pulmonology Provider 03/13/24 Phuc Cruz MD [address] [place] [address] Cardiovascular Disease 09/20/24 documented as of this encounter
--- OUTSIDE RECORDS SUMMARY | 2024-09-26 12:16 | XMS_ITS | Encounter Summary ---
Author Organization [place] Address [address] [facility] [place] [address] Care Team Providers Care Used Car Lot Attendant Name Role Phone Andrew Erickson MD Primary Care Provider [phone] Sandoval Boggs MD Unavailable [phone] Jordan Erickson MD Unavailable [phone] Essence Wise [facility] Unavailable [phone] Heidy Harrell DO Unavailable [phone] Heidy Harrell DO Unavailable [phone] Essence Wise [facility] Unavailable [phone] Pablito Paulson MD Unavailable Phuc Cruz MD Unavailable [phone] Reason for Visit * Reason Onset Date Comments Referral 09/24/2024 Labs Encounter Details Date Type Department Care Team (Late st Contact Info) Description 09/24/2024 Telephone [facility] Neurology Clinic [address] 3[address] [place] [address] Lary Schmitz APRN [id number] [place] [address] Referral (Labs ) Social History Tobacco Use Types Packs/Day Years [...] AM CDT Legal Sex Male 3:26 AM RELOCATION SERVICES SPECIALIST Gender Identity Male 04/09/2020 8:36 AM CDT Sexual Orientation Straight 04/09/2020 8: 36 AM CDT documented as of this encounter Miscellaneous Notes * Telephone Encounter - Gabino Terry MA - 09/24/2024 1:24 PM CST Lab orders were printed and faxed today to fax number provided below. ANOOP Pollack on 09/24/2024 at 1:24 PM CATION SERVICES SPECIALIST * Telephone Encounter - Arlene Frazier - 09/24/2024 1:06 PM CST [facility] Call Center Phone Message May a detailed message be left on voicemail: yes Reason for Call: Other: Patient called and requested for his lab orders to be sent To [facility]. Dr Andrew Erickson. Please fax the orders so pt can schedule. Action Taken: Message routed to: Other: Neurlogy Travel Screening: Not Applicable Date of Service: CATION SERVICES SPECIALIST documented in this encounter Plan of Treatment Upcoming Encounters Date Type Department Care Team (Late st Contact Info) Description 10/31/2024 7:30 AM CDT Appointment [facility] Specialty Care [address] [facility] [address] [place] [phone] Phuc Cruz MD [address] [place] [address] 11/06/2024 9:00 AM CDT Office Visit [facility] Heart [facility] [address] [facility] [address] [place] [phone] Phuc Cruz MD [address] [place], [place] [address] 01/16/2025 12:45 PM CDT Office Visit [facility] Neurology [facility] [address] [place] [phone] Lary Schmitz, PURCHASING ADMINISTRATIVE ASSISTANT MECHANICAL SYSTEM TECHNICIAN [address] [facility] [place], [place] [address] documented as of this encounter Visit Diagnoses Not on filedocumented in this encounter Additional Health Concerns Assessment Noted Time PHQ-9 Depression Total Score: 14 021 7:02 AM CDT documented as of this encounter Care Teams Used Car Lot Attendant Relationship Specialty Start Date End Date Andrew Erickson MD PCP - General Family Practice 11/12/17 Sandoval Boggs MD [address] [place] [address] [phone] Clinical Neurophysiology 11/03/18 Jordan Erickson MD [facility] [address] [place] [address] 11/03/18 Essence Wise, [facility] [address] [place] [address] Pharmacist Pharmacist 06/01/21 Heidy Harrell DO [address] [place] [address] Neurology 09/28/21 Heidy Harrell DO [address] [place] [address] Assigned Neuroscience Provider 04/17/22 Essence Wise, [facility] [address] [place] [address] Assigned [place] Pharmacist 10/14/23 Pablito Paulson MD [address] [place] [address] [phone] Assigned Pulmonology Provider 03/13/24 Phuc Cruz MD [address] [place] [address] Cardiovascular Disease 09/20/24 documented as of this encounter
--- OUTSIDE RECORDS SUMMARY | 2024-09-26 12:16 | XMS_ITS | Encounter Summary ---
Author Organization [facility] Address [address] [place] [address] Care Team Providers Care Estimator Printing Plate Making Name Role Phone Andrew Erickson MD Primary Care Provider [phone] Sandoval Boggs MD Unavailable [phone] Jordan Erickson MD Unavailable [phone] Essence Wise [facility] Unavailable [phone] Heidy Harrell DO Unavailable [phone] Heidy Harrell DO Unavailable [phone] Essence Wise [facility] Unavailable [phone] Pablito Paulson MD Unavailable Phuc Cruz MD Unavailable [phone] Reason for Referral * CV Testing (Routine) - Pending Review Specialty Diagnoses / Procedures Referred By Ranjeet gleason Referred To Contact Diagnoses Orthostatic hypotension Procedures Echocardiogram Complete ZZHC TTE W/DOPPLER, COMPLETE ZZHC ECHO COMPLETE W DOPPLER W CONTRAST ZZHC ECHO COMPLETE W DOPPLER W/O CONTRAST ZZHC IV PUSH SINGLE, INITIAL SUBSTANCE ZZHC US GUIDE FOR PERICARDIOCENTESIS ZZHC ECHO MYOCARD BX ZZC INJECTION, PERFLUTREN LIPID MICROSPHERES, PER ML ZZHC STATISTIC IV PUSH SINGLE INITIAL SUBSTANCE HI ECHO MYOCARD BX HI INJECTION, PERFLUTREN LIPID MICROSPHERES, PER ML HI TTE W/DOPPLER, COMPLETE HI IV PUSH SINGLE, INITIAL SUBSTANCE HI TTE W/DOPPLER, COMPLETE HI TTE W/DOPPLER, COMPLETE HC US GUIDE FOR PERICARDIOCENTESIS HC ECHO MYOCARD BX HC IV PUSH SINGLE, INITIAL SUBSTANCE HC STATISTIC IV PUSH SINGLE INITIAL SUBSTANCE HC ECHO COMPLETE W DOPPLER W CONTRAST HC ECHO COMPLETE W DOPPLER W/O CONTRAST Phuc Cruz MD [address] [place] [address] Phone: tel: fax: Referral ID Status Reason Start Date Expiration Date V isits Requested Visits Authorized [id number] Pending Review 09/25/2024 09/25/2025 1 1 E PAIRER * Consultation (Routine: Next available opening) - Pending Review Specialty Diagnoses / Procedures Referred By Ranjeet t Referred To Contact Cardiovascular Disease Diagnoses Orthostatic hypotension Phuc Cruz MD [address] [place] [address] Phone: tel: fax: Referral ID Status Reason Start Date Expiration Date V isits Requested Visits Authorized [id number] Pending Review 09/25/2024 09/25/2025 1 1 Question Answer Follow-up with: Other Video Photographer Connor velazquez Patient Scheduling Instructions: [facility] will call you to coordinate your care as prescribed by your provider. If you have concerns about scheduling, please call [phone]. Comments [facility] will call you to coordinate your care as prescribed by your provider. If you have concerns about scheduling, please call [phone]. E PAIRER Reason for Visit * Reason Comments Consult New for Orthostatic hypotension Encounter Details Date Type Department Care Team (Latest Contact Info) Description 09/25/2024 9:00 AM GLOVE PAIRER Office Visit [facility] [address] [place] [phone] Phuc Cruz MD [address] [place] [id number] Orthostatic hypotension (Primary Dx); Screening for cardiovascular condition; Parkinson's disease, unspecified whether dyskinesia present, unspecified whether manifestations fluctuate (H); Hyperlipidemia, unspecified hyperlipidemia type; Primary hypertension Social History Tobacco Use Types Packs/Day Years Used Date Smoking Tobacco: Former Cigarettes Q uit: 1981 Smokeless Tobacco: Never Tobacco Cessation:Counseling Given: Not Answered Alcohol Use Standard Drinks/Week Comments Not Currently 15 (1 standard drink = 0.6 oz pu re alcohol) PHQ-2 Answer Date Recorded PHQ-2 Score 0 09/02/2023 Adolescent Education Answer Date Record ed Getting School Help Needed Not on file 06/04 Sex and Gender Information Value Date Recorded Sex Assigned at Male 04/09/2020 8:36 AM CDT Legal Sex Male 3:26 AM GLOVE PAIRER Gender Identity Male 04/09/2020 8:36 AM CDT Sexual Orientation Straight 04/09/2020 8: 36 AM CDT documented as of this encounter Last Filed Vital Signs Vital Sign Reading Time Taken Comments Blood Pressure 103/64 09/25/2024 9:11 AM GLOVE PAIRER Pulse 76 09/25/2024 9:11 AM GLOVE PAIRER Temperature - - Respiratory Rate - - Oxygen Saturation - - Inhaled Oxygen Concentration - - Weight 97.1 kg (214 lb) 09/25/2024 9:11 AM GLOVE PAIRER Height 190.5 cm (6' 3) 09/25/2024 9:11 AM GLOVE PAIRER Body Mass Index 26.75 09/25/2024 9:11 AM GLOVE PAIRER documented in this encounter Progress Notes * Phuc Cruz MD - 09/25/2024 9:00 AM CST HPI and Plan: Marck is a very nice 73-year-old gentleman referred from the neurology clinic because of orthostatic hypotension. Marck has a past medical history significant for Parkinson's disease, depression, degenerative arthritis, gout, obstructive sleep apnea on CPAP, pancreatic insufficiency, benign prostatic hypertrophy. He states he has had orthostasis for years. This is gotten worse recently. His is concerned because he still likes to chainsaw wood. He has no chest arm neck jaw or shoulder comfort. He denies dyspnea on exertion orthopnea or PND. He denies having palpitations. He has been told to liberalize the salt in his diet and is started on fluid cortisone 0.1 mg on Tuesday and Tuesday. Family history is significant for his father undergoing coronary bypass grafting in his 70s. His mother in her 70s of noncardiac issues. He is a former smoker having quit years ago. He stopped drinking alcohol this past winter and appears that he would be drinking 2 or 3 drinks most days. He is lost 8 to 10 pounds which he attributes to stopping alcohol. He reports having batteries of lab work done recently through his primary care clinic. I do not have any of these results EKG shows normal sinus rhythm and a normal EKG he had a 2020 echocardiogram which was described as normal with ejection fraction of 60 to 65%. A 2015 Holter monitor showed an average heart rate of 77 ranging from 60-117. This only demonstrated isolated PACs and PVCs. Carotid Doppler in 2020 demonstrated no significant disease. Assessment and plan I suspect his orthostasis is multifactorial. First is his Parkinson's which he may have a Shy-Drager response contributing to his orthostasis Clearly many of the medications he is on are contributing including tamsulosin, buspirone, carbidopa levodopa, clonazepam, Cymbalta. If an of these can be illuminated or changed it would be helpful. Recent weight loss is also contributing. I would increase his fluid cortisone to daily. I will consider adding midodrine down the road. We talked about liberalizing the salt in his diet and appears he is doing this. We talked about compression stockings which she has tried in the past but is not compliant with. I have recommended that he elevate the head of his bed at nighttime. I recommend that he add resistance exercise in a recumbent position if necessary. I will obtain lab work from his primary care clinic and review this. I will recheck his echocardiogram. Further evaluation treatment will depend upon the above results. I will discuss with Dr. Fabiano Weeks who has a special interest and autonomic dysfunction. Thank you for allow me to participate in this patient's care. Sincerely, Phuc Cruz MD [facility] The longitudinal plan of care for the diagnosis(es)/condition(s) as documented were addressed during this visit. Due to the added complexity in care, I will continue to support Marck in the subsequent management and with ongoing continuity of care. Today's clinic visit entailed: Review of the result(s) of each unique test - echocardiogram, Holter monitor, carotid ultrasound, EKG, lab work The following tests were independently interpreted by me as noted in my documentation: EKG Ordering of each unique test Prescription drug management 75 minutes spent by me on the date of the encounter doing chart review, history and exam, documentation and further activities per the note Provider Link to [facility] Help Grid The level of medical decision making during this visit was of high complexity. Orders Placed This Encounter Procedures Follow-Up with Cardiology EKG 12-lead complete w/read - Clinics (performed today) Echocardiogram Complete No orders of the defined types were placed in this encounter. There are no discontinued medications. Encounter Diagnoses Name Primary? Screening for cardiovascular condition Orthostatic hypotension Yes Parkinson's disease, unspecified whether dyskinesia present, unspecified whether manifestations fluctuate (H) Hyperlipidemia, unspecified hyperlipidemia type Primary hypertension CURRENT MEDICATIONS: Current Outpatient Medications Medication Sig Dispense Refill allopurinol (ZYLOPRIM) 300 MG tablet Take 300 mg by mouth daily omxxrqh-ggnmsv-qmuhswlp (CREON 24) 18769-04[address] units CPEP per EC capsule Take 1 capsule by mouth 3 times daily (with meals) busPIRone (BUSPAR) 10 MG tablet Take 10 mg by mouth 3 times daily carbidopa-levodopa (SINEMET CR) 50-200 MG CR tablet Take 1 tablet by mouth at bedtime 90 tablet 3 carbidopa-levodopa (SINEMET) 25-100 MG tablet Take 2 tablets by mouth 2 times daily At 5-6 am and 12 pm. May take another dose in the afternoon if needed = max of 6 tablets/day 540 tablet 3 clonazePAM (KLONOPIN) 1 MG tablet Take 1 tablet (1 mg) by mouth At Bedtime 30 tablet 5 DULoxetine (CYMBALTA) 60 MG capsule Take 60 mg by mouth every morning finasteride (PROSCAR) 5 MG tablet Take 1 tablet by mouth daily at 2 pm. fludrocortisone (FLORINEF) 0.1 MG tablet Take 0.1 mg by mouth daily. gabapentin (NEURONTIN) 300 MG capsule Take 600 mg by mouth at bedtime Multiple Vitamin (MULTI-VITAMINS) TABS Take 1 tablet by mouth daily Morton-3 Fatty Acids (FISH OIL) 1200 MG capsule Take 1,200 mg by mouth daily pravastatin (PRAVACHOL) 40 MG tablet Take 40 mg by mouth daily 0 RESTASIS 0.05 % ophthalmic emulsion Place 1 drop into both eyes 2 times daily tamsulosin (FLOMAX) 0.4 MG capsule Take 0.4 mg by mouth daily. ALLERGIES Allergies Allergen Reactions Saminaara Jaydaa [Cascara] Unknown Nsaids GI Disturbance Amylase Rash Lipase [Pancrelipase (Rsj-Wyme-Aiok)] Rash Proteolytic Enzymes Rash PAST MEDICAL HISTORY: Past Medical History: Diagnosis Date Cerebral artery occlusion with cerebral infarction (H) 2011 ? TIA nothing found but right arm was numb for days Complication of anesthesia Pancreatitis after hip surgery ?? caused from anesthesia meds Falls frequently Fracture 10/08/2019 L5-sacrum from a fall Gout High cholesterol History of blood transfusion Hypertension Osteoarthritis generalized Other chronic pain low back Pancreatitis Paralysis of diaphragm right Parkinson disease (H) Parkinsons disease (H) Peripheral neuropathy Scoliosis Sleep apnea Uses a CPAP Syncope Uncomplicated asthma PAST SURGICAL HISTORY: Past Surgical History: Procedure Laterality Date ARTHROPLASTY HIP BILATERAL Bilateral ARTHROPLASTY SHOULDER Right 02/13/2020 Procedure: Right shoulder anatomic total shoulder arthroplasty; Surgeon: Skip Carias MD; Location: OR ARTHROSCOPY KNEE WITH MEDIAL MENISCECTOMY Right 09/24/2020 Procedure: Arthroscopy knee with partial medial meniscectomy; Surgeon: Skip Carias MD; Location: OR HERNIA REPAIR, INGUINAL RT/LT Right x 3 OPEN REDUCTION INTERNAL FIXATION ANKLE Right 09/24/2020 Procedure: OPEN REDUCTION INTERNAL FIXATION MEDIAL MALLEOLUS WITH SYNDESMOTIC FIXATION; Surgeon: Skip Carias MD; Location: OR OPTICAL TRACKING SYSTEM FUSION SPINE POSTERIOR LUMBAR THREE+ LEVELS N/A 05/02/2020 Procedure: L2, L3, L4 and L5 Parks-Luevano osteotomy with L2-3, L3-4, L4-5 and L5-S1 transforaminal lumbar interbody fusions; Surgeon: Chester Venegas MD; Location: OR REVERSE ARTHROPLASTY SHOULDER Left 03/03/2022 Procedure: 1. Left shoulder reverse total shoulder arthroplasty. 2. Removal of loose bodies.; Surgeon: Skip Carias MD; Location: OR US UPPER EXT ART THORACIC OUTLET SYNDROME LT FAMILY HISTORY: History reviewed. No pertinent family history. SOCIAL HISTORY: Social History Socioeconomic History Marital status: Spouse name: None Number of children: None Years of education: None Highest education level: None Tobacco Use Smoking status: Former Current packs/day: 0.00 Types: Cigarettes Quit date: 1981 Years since quittin.1 Smokeless tobacco: Never Vaping Use Vaping status: Never Used Substance and Sexual Activity Alcohol use: Not Currently Alcohol/week: 15.0 standard drinks of alcohol Types: 15 Shots of liquor per week Drug use: Never Review of Systems: Skin: Eyes: ENT: Respiratory: Negative Cardiovascular: lightheadedness, Positive for Gastroenterology: Genitourinary: Musculoskeletal: Neurologic: Psychiatric: Heme/Lymph/Imm: Endocrine: Physical Exam: Vitals: BP 103/64 (Patient Position: Supine) Pulse 76 Ht 1.905 m (6' 3) Wt 97.1 kg (214 lb) BMI 26.75 kg/m?? Constitutional: cooperative, alert and oriented, well developed, well nourished, in no acute distress Skin: warm and dry to the touch, no apparent skin lesions or masses noted Head: normocephalic, no masses or lesions Eyes: pupils equal and round, conjunctivae and lids unremarkable, sclera white, no xanthalasma, EOMS intact, no nystagmus Lymph: ENT: no pallor or cyanosis, dentition good Neck: no carotid bruit Respiratory: normal breath sounds, clear to auscultation, normal A-P diameter, normal symmetry, normal respiratory excursion, no use of accessory muscles Cardiac: regular rhythm, no murmurs, gallops or rubs detected pulses full and equal GI: Extremities and Muscular Skeletal: no edema, no spinal abnormalities noted, normal muscle strength and tone Neurological: no gross motor deficits Psych: affect appropriate, oriented to time, person and place CC Andrew Erickson MD [facility] [address] [place] [id number] E PAIRER documented in this encounter Plan of Treatment Upcoming Encounters Date Type Department Care Team (Late st Contact Info) Description 10/31/2024 7:30 AM CDT Appointment [facility] [id number] [place] [address] [address] [place] [phone] Phuc Cruz MD [address] [place] [address] 11/06/2024 9:00 AM CDT Office Visit [facility] [address] [facility] [address] [place] [phone] Phuc Cruz MD [address] [place] [address] 01/16/2025 12:45 PM CDT Office Visit [facility] [address] [place] [address] Lary Schmitz, SALESPERSON USED CARS [facility] [address] [facility], [place] [address] Scheduled Orders Name Type Priority Associated Diagnoses Orde r Schedule Echocardiogram Complete Echocardiography Routine Orthostatic hypotension Expected: 10/02/2024 (Approximate), Expires: 12/23/2025 Scheduled Referrals Name Type Priority Associated Diagnoses Orde r Schedule Follow-Up with Cardiology Referral Routine: Next available opening Orthostatic hypotension Expected: 10/23/2024 (Approximate), Expires: 09/25/2025 documented as of this encounter Procedures Procedure Name Priority Date/Time Associated Diagnosis Comments EKG 12-LEAD COMPLETE W/READ - CLINICS Routine 09/25/2024 Screening for cardiovascular condition documented in this encounter Results * EKG 12-lead complete w/read - Clinics (performed today) (09/25/2024) Phuc Cruz MD ECG ORDERABLES Edited Res ult - Final documented in this encounter Visit Diagnoses Diagnosis Orthostatic hypotension- Primary Screening for cardiovascular condition Screening for other and unspecified cardiovascular conditions Parkinson's disease, unspecified whether dyskinesia present, unspecified whether manifestations fluctuate (H) Hyperlipidemia, unspecified hyperlipidemia type Primary hypertension Unspecified essential hypertension documented in this encounter Additional Health Concerns Assessment Noted Time PHQ-9 Depression Total Score: 14 021 7:02 AM CDT documented as of this encounter Care Teams Estimator Printing Plate Making Relationship Specialty Start Date End Date Andrew Erickson MD PCP - General Family Practice 11/12/17 Sandoval Boggs MD [address] [place] [address] Clinical Neurophysiology 11/03/18 Jordan Erickson MD [address] [address] 11/03/18 Essence Wise [facility] [address] [place] [address] Pharmacist Pharmacist 06/01/21 Heidy Harrell DO [address] [place] [address] Neurology 09/28/21 Heidy Harrell DO [address] [place] [address] Assigned Neuroscience Provider 04/17/22 Essence Wise [facility] [address] [place] [address] Assigned MTM Pharmacist 10/14/23 Pablito Paulson MD [address] [place] [id number] Assigned Pulmonology Provider 03/13/24 Phuc Cruz MD [address] [facility] [address] [place] [address] Cardiovascular Disease 09/20/24 documented as of this encounter
--- OUTSIDE RECORDS SUMMARY | 2024-09-26 12:16 | XMS_ITS | Encounter Summary ---
Author Organization [facility] Address [address] [place] [address] Care Team Providers Care Icing Maker Name Role Phone Andrew Erickson MD Primary Care Provider [phone] Sandoval Boggs MD Unavailable [phone] Jordan Erickson MD Unavailable [phone] [address] [facility] Unavailable [phone] Heidy Harrell DO Unavailable [phone] Heidy Harrell DO Unavailable [phone] 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 [address] [facility] [address] [place] [phone] Phuc Cruz MD [address] [place], [place] [id number] 01/16/2025 12:45 PM CDT Office Visit [facility] Neurology [facility] [address] [place] [phone] Lary Schmitz, VENIPUNCTURIST CRAPS MANAGER [address] [place], [place] [address], [place] [address] documented as of this encounter Visit Diagnoses Not on filedocumented in this encounter Additional Health Concerns Assessment Noted Time PHQ-9 Depression Total Score: 14 021 7:02 AM CDT documented as of this encounter Care Teams Icing Maker Relationship Specialty Start Date End Date Andrew Erickson MD PCP - General Family Practice 11/12/17 Sandoval Boggs MD [address] [place] [phone] Clinical Neurophysiology 11/03/18 Jordan Erickson MD [facility] [address] [place] [address] 11/03/[address] [facility] [address] [place] [address] Pharmacist Pharmacist 06/01/21 Heidy Harrell DO [address] [place] [address] Neurology 09/28/21 Heidy Harrell DO [address] [place] [address] Assigned Neuroscience Provider 04/17/[address] [facility] [address] [place] [address] Assigned MTM Pharmacist 10/14/23 Pablito Paulson MD [address] [place] [address] Assigned Pulmonology Provider 03/13/24 Phuc Cruz MD [address] [place] [address] Cardiovascular Disease 09/20/24 documented as of this encounter
--- OUTSIDE RECORDS SUMMARY | 2024-09-26 12:16 | XMS_ITS | Encounter Summary ---
Author Organization [place] Address [address] [place] [address] Care Team Providers Care Sealer Dry Cell Name Role Phone Andrew Erickson MD Primary Care Provider [phone] Sandoval Boggs MD Unavailable [phone] Jordan Erickson MD Unavailable +[phone] Sandoval Boggs MD Unavailable +[phone] Erich Gillette MD Unavailable +[phone] Essence Wise [facility] Unavailable +[phone] Manish Catherine PA-C Unavailable +[phone] Heidy Harrell DO Unavailable +[phone] Heidy Harrell DO Unavailable +[phone] Essence Wise [facility] Unavailable +[phone] Heidy Harrell DO Unavailable +[phone] Essence Wise [facility] Unavailable [phone] Essence Wise [facility] Unavailable [phone] Pablito Paulson MD Unavailable Phuc Cruz MD Unavailable +[phone] Encounter Details Date Type Department Care Team (Late st Contact Info) Description 01/26/2021 [facility] [address] [phone] Mark Soliz, MA Social History Tobacco Use Types Packs/Day Years Used Date Smoking Tobacco: Never Smokeless Tobacco: Never Alcohol Use Standard Drinks/Week Comments Yes 0 (1 standard drink = 0.6 oz pur e alcohol) occas PHQ-2 Answer Date Recorded PHQ-2 Score 2 08/28/2019 Sex and Gender Information Value Date Recorded Sex Assigned at Male 04/09/2020 8:36 AM CDT 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 Gender Identity Male 04/09/2020 8:36 AM CDT Sexual Orientation Straight 04/09/2020 8: 36 AM CDT documented as of this encounter Plan of Treatment Upcoming Encounters Date Type Department Care Team (Late st Contact Info) Description 10/31/2024 7:30 AM CDT Appointment [facility] Specialty Care [address] [place] [address] [address] [place] [address] Phuc Cruz MD [address] [place], [place] [address] 11/06/2024 9:00 AM CDT Office Visit [facility] [place] [address] [place] [address] Phuc Cruz MD [address] [place] [address] 01/16/2025 12:45 PM CDT Office Visit [facility] Neurology Clinic [address] [phone] Lary Schmitz, [employer] [facility] [address] [place] [address] [address] documented as of this encounter Visit Diagnoses Not on filedocumented in this encounter Additional Health Concerns Assessment Noted Time PHQ-9 Depression Total Score: 12 020 6:56 AM BASEBALL GLOVE SHAPER documented as of this encounter Care Teams Sealer Dry Cell Relationship Specialty Start Date End Date Andrew Erickson MD PCP - General Family Practice 11/12/17 Sandoval Boggs MD [address] [place] [address] Clinical Neurophysiology 11/03/18 Jordan Erickson MD [address] [address] 11/03/18 Sandoval Boggs MD [address] [place] [address] Assigned Neuroscience Provider 06/13/20 09/19/21 Erich Gillette MD [address] [facility] [address] [address] Assigned Sleep Provider 06/13/20 06/12/24 Essence Wise, [facility] [address] [place] [address] Pharmacist Pharmacist 06/01/21 Manish Catherine PA-C [address] [facility] [address] [address] Assigned Neuroscience Provider 09/20/21 11/14/21 Heidy Harrell DO [address] [place] [address] Neurology 09/28/21 Heidy Harrell DO [address] [place] [address] Assigned Neuroscience Provider 04/17/22 Essence Wise [facility] [address] [place] [address] Assigned MTM Pharmacist 01/16/22 05/07/22 Heidy Harrell DO [address] [place] [address] Assigned Neuroscience Provider 11/15/21 04/16/22 Essence Wise [facility] [address] [place] [address] Assigned MTM Pharmacist 05/19/22 07/01/23 Essence Wise [facility] [address] [place] [address] Assigned MTM Pharmacist 10/14/23 Pablito Paulson MD [address] [place] [address] Assigned Pulmonology Provider 03/13/24 Phuc Cruz MD [address] [place] [address] Cardiovascular Disease 09/20/24 documented as of this encounter
--- OUTSIDE RECORDS SUMMARY | 2024-09-26 12:16 | XMS_ITS | Encounter Summary ---
Author Organization [place] Address [address] [place] [address] Care Team Providers Care Senior Human Resources Representative Name Role Phone Andrew Erickson MD Primary Care Provider [phone] Sandoval Boggs MD Unavailable [phone] Jordan Erickson MD Unavailable +[phone] Sandoval Boggs MD Unavailable +[phone] Erich Gillette MD Unavailable +[phone] Essence Wise [facility] Unavailable +[phone] Manish Catherine PA-C Unavailable +[phone] Heidy Harrell DO Unavailable +[phone] Heidy Harrell DO Unavailable +[phone] Essence Wise [facility] Unavailable [phone] Heidy Harrell DO Unavailable +[phone] Essence Wise [facility] Unavailable [phone] Essence Wise [facility] Unavailable +[phone] Pablito Paulson MD Unavailable Phuc Cruz MD Unavailable +[phone] Encounter Details Date Type Department Care Team (Late st Contact Info) Description 05/01/2021 [facility] [address] [phone] Kelsi Quintero MA Social History Tobacco Use Types Packs/Day Years Used Date Smoking Tobacco: Never Smokeless Tobacco: Never Alcohol Use Standard Drinks/Week Comments Yes 0 (1 standard drink = 0.6 oz pur e alcohol) occas PHQ-2 Answer Date Recorded PHQ-2 Score 2 08/28/2019 Sex and Gender Information Value Date Recorded Sex Assigned at Male 04/09/2020 8:36 AM CDT 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 No / Unsure 04/14/2021 8:24 AM CDT documented as of this encounter Plan of Treatment Upcoming Encounters Date Type Department Care Team (Late st Contact Info) Description 10/31/2024 7:30 AM CDT Appointment [facility] Specialty Care [address] [facility] [address] [place] [address] Phuc Cruz MD [address] [place] [address] 11/06/2024 9:00 AM CDT Office Visit [facility] Heart [facility] [address] [facility] [address] [place] [address] Phuc Cruz MD [address] [place] [address] 01/16/2025 12:45 PM CDT Office Visit [facility] Neurology Clinic [place] [address] [place] [phone] Lary Schmitz, DANDY TENDER [facility] [address] [facility] [id number] [place] [address] documented as of this encounter Visit Diagnoses Not on filedocumented in this encounter Additional Health Concerns Assessment Noted Time PHQ-9 Depression Total Score: 12 020 6:56 AM TELEPHONIC NURSE CASE MANAGER documented as of this encounter Care Teams Senior Human Resources Representative Relationship Specialty Start Date End Date Andrew Erickson MD PCP - General Family Practice 11/12/17 Sandoval Boggs MD [address] [place] [address] Clinical Neurophysiology 11/03/18 Jordan Erickson MD [address] [address] 11/03/18 Sandoval Boggs MD [address] [place] [address] Assigned Neuroscience Provider 06/13/20 09/19/21 Erich Gillette MD [address] [place] [address] Assigned Sleep Provider 06/13/20 06/12/24 Essence Wise, [facility] [address] [place] [address] Pharmacist Pharmacist 06/01/21 Manish Catheirne PA-C [address] [facility] [address] [address] Assigned Neuroscience Provider 09/20/21 11/14/21 Heidy Harrell DO [address] [place] [address] Neurology 09/28/21 Heidy Harrell DO [address] [place] [address] Assigned Neuroscience Provider 04/17/22 Essence Wise [facility] [address] [place] [address] Assigned MTM Pharmacist 01/16/22 05/07/22 Heidy Harrell DO [address] [place] [address] Assigned Neuroscience Provider 11/15/21 04/16/22 Essence Wise [facility] [address] [place] [address] Assigned MTM Pharmacist 05/19/22 07/01/23 Essence Wise [facility] [address] [place] [address] Assigned MTM Pharmacist 10/14/23 Pablito Paulson MD [address] [place] [address] Assigned Pulmonology Provider 03/13/24 Phuc Cruz MD [address] [place] [address] Cardiovascular Disease 09/20/24 documented as of this encounter
--- OUTSIDE RECORDS SUMMARY | 2024-09-26 12:16 | XMS_ITS | Encounter Summary ---
Author Organization [place] Address [address] [place] [address] Care Team Providers Care Security Consultant Name Role Phone Andrew Erickson MD Primary Care Provider [phone] Sandoval Boggs MD Unavailable [phone] Jordan Erickson MD Unavailable [phone] Sandoval Boggs MD Unavailable [phone] Erich Gillette MD Unavailable [phone] Essence Wise [facility] Unavailable +[phone] Manish Catherine PA-C Unavailable +[phone] Heidy Harrell DO Unavailable +[phone] Heidy Harrell DO Unavailable [phone] Essence Wise [facility] Unavailable +[phone] Heidy Harrell DO Unavailable [phone] Essence Wise [facility] Unavailable [phone] Essence Wise [facility] Unavailable [phone] Pablito Paulson MD Unavailable Phuc Cruz MD Unavailable +[phone] Encounter Details Date Type Department Care Team (Late st Contact Info) Description 05/11/2021 [facility] [address] [phone] Manish Catherine PA-C [address] [place] [address] Social History Tobacco Use Types Packs/Day Years Used Date Smoking Tobacco: Never Smokeless Tobacco: Never Alcohol Use Standard Drinks/Week Comments Yes 0 (1 standard drink = 0.6 oz pur e alcohol) occas PHQ-2 Answer Date Recorded PHQ-2 Score 2 08/28/2019 Sex and Gender Information Value Date Recorded Sex Assigned at Male 04/09/2020 8:36 AM CDT 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 [address] [facility] [address] [place] [address] Phuc Cruz MD [address] [place] [address] 01/16/2025 12:45 PM CDT Office Visit [facility] Neurology Clinic [place] [address] [place] [phone] Lary Schmitz, MIXING MACHINE ATTENDANT PIE BAKERY LABORER [address] [facility] [place] [id number] [place] [address] documented as of this encounter Visit Diagnoses Not on filedocumented in this encounter Additional Health Concerns Assessment Noted Time PHQ-9 Depression Total Score: 12 020 6:56 AM HEALTH AND SAFETY CONSULTANT documented as of this encounter Care Teams Security Consultant Relationship Specialty Start Date End Date Andrew Erickson MD PCP - General Family Practice 11/12/17 Sandoval Boggs MD [address] [place] [address] Clinical Neurophysiology 11/03/18 Jordan Erickson MD [facility] [address] [place] [address] 11/03/18 Sandoval Boggs MD [address] [place] [address] Assigned Neuroscience Provider 06/13/20 09/19/21 Erich Gillette MD [address] [place] [address] Assigned Sleep Provider 06/13/20 06/12/24 Essence Wise, [facility] [address] [place] [address] Pharmacist Pharmacist 06/01/21 Manish Catherine PA-C [address] [place] [address] Assigned Neuroscience Provider 09/20/21 11/14/21 Heidy Harrell DO [address] [place] [address] Neurology 09/28/21 Heidy Harrell DO [address] [place] [address] Assigned Neuroscience Provider 04/17/22 Essence Wise, [facility] [address] [place] [address] Assigned MTM Pharmacist 01/16/22 05/07/22 Heidy Harrell DO [address] [place] [address] Assigned Neuroscience Provider 11/15/21 04/16/22 Essence Wise, [facility] [address] [place] [address] Assigned MTM Pharmacist 05/19/22 07/01/23 Essence Wise, [facility] [address] [place] [address] Assigned MTM Pharmacist 10/14/23 Pablito Paulson MD [address] [place] [address] Assigned Pulmonology Provider 03/13/24 Phuc Cruz MD [address] [place] [address] Cardiovascular Disease 09/20/24 documented as of this encounter
--- OUTSIDE RECORDS SUMMARY | 2024-09-26 12:16 | XMS_ITS | Encounter Summary ---
Author Organization [place] Address [address] [place] [address] Care Team Providers Care Trade Specialist Name Role Phone Andrew Erickson MD Primary Care Provider [phone] Sandoval Boggs MD Unavailable +[phone] Jordan Erickson MD Unavailable +[phone] Erich Gillette MD Unavailable [phone] Essence Wise [facility] Unavailable +[phone] Manish Catherine PA-C Unavailable +[phone] Heidy Harrell DO Unavailable +[phone] Heidy Harrell DO Unavailable +[phone] Essence Wise [facility] Unavailable +[phone] Heidy Harrell DO Unavailable +[phone] Essence Wise [facility] Unavailable [phone] Essence Wise [facility] Unavailable [phone] Pablito Paulson MD Unavailable Phuc Cruz MD Unavailable +[phone] Encounter Details Date Type Department Care Team (Late st Contact Info) Description 10/02/2021 Documentation Only INTERFACED REPORT Unknown, Provider Social History Tobacco Use Types Packs/Day Years Used Date Smoking Tobacco: Never Smokeless Tobacco: Never Alcohol Use Standard Drinks/Week Comments Yes 15 (1 standard drink = 0.6 oz pure alcohol) (3 drinks 4-5 times/week, usually vodka) PHQ-2 Answer Date Recorded PHQ-2 Total Score (Adult) - Positive if 3 or more points; Administer PHQ-9 if positive 3 06/01/2021 Sex and Gender Information Value Date Recorded Sex Assigned at Male 04/09/2020 8:36 AM CDT 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 No / Unsure 09/28/2021 10:14 AM HEAD WELL PULLER documented as of this encounter Plan of Treatment Upcoming Encounters Date Type Department Care Team (Late st Contact Info) Description 10/31/2024 7:30 AM CDT Appointment [facility] Specialty Care [address] [facility] [address] [place] [phone] Phuc Cruz MD [address] [place], [place] [address] 11/06/2024 9:00 AM CDT Office Visit [facility] Heart [facility] [address] [facility] [address] [place] [phone] Phuc Cruz MD [address] [place], [place] [address] 01/16/2025 12:45 PM CDT Office Visit [facility] Neurology Clinic [facility] [address] [place] [address] Lary Schmitz, UTILITY LOCATE TECHNICIAN [facility] [address] [id number] [place], [place] [address] documented as of this encounter Visit Diagnoses Not on filedocumented in this encounter Additional Health Concerns Assessment Noted Time PHQ-9 Depression Total Score: 14 021 7:02 AM CDT documented as of this encounter Care Teams Trade Specialist Relationship Specialty Start Date End Date Andrew Erickson MD PCP - General Family Practice 11/12/17 Sandoval Boggs MD [address] [place] [address] Clinical Neurophysiology 11/03/18 Jordan Erickson MD [facility] [address] [place] [address] 11/03/18 Erich Gillette MD 6[address] [facility] [address] [place], [place] [address] Assigned Sleep Provider 06/13/20 06/12/24 [facility] [address] [place] [address] Pharmacist Pharmacist 06/01/21 Manish Catherine PA-C [address] [facility] [address] [place] [address] Assigned Neuroscience Provider 09/20/21 11/14/21 Heidy Harrell DO [address] [place] [address] Neurology 09/28/21 Heidy Harrell DO [address] [place] [address] Assigned Neuroscience Provider 04/17/22 Essence Wise [facility] [address] [place] [address] Assigned MTM Pharmacist 01/16/22 05/07/22 Heidy Harrell DO [address] [place] [address] Assigned Neuroscience Provider 11/15/21 04/16/22 Essence Wise [facility] [address] [place] [address] Assigned MTM Pharmacist 05/19/22 07/01/23 Essence Wise [facility] [address] [place] [address] Assigned MTM Pharmacist 10/14/23 Pablito Paulson MD [address] [place] [address] Assigned Pulmonology Provider 03/13/24 Phuc Cruz MD [address] [place] [id number] Cardiovascular Disease 09/20/24 documented as of this encounter
--- OUTSIDE RECORDS SUMMARY | 2024-09-26 12:17 | XMS_ITS | Encounter Summary ---
Author Organization Commerce Address [address] [place] [address] Care Team Providers Care Wood Tile Installer Name Role Phone Andrew Erickson MD Primary Care Provider Sandoval Boggs MD Unavailable [phone] Jordan Erickson MD Unavailable [phone] [facility] Unavailable [phone] Heidy Harrell DO Unavailable [phone] Heidy Harrell DO Unavailable [phone] [facility] Unavailable [phone] Pablito Paulson MD Unavailable Phuc Cruz MD Unavailable [phone] Encounter Details Date Type Department Care Team (Late st Contact Info) Description 07/23/2024 External Order Results [facility] [address] [place] [address] Outside, Provider Social History Tobacco Use Types [...] AM CDT Legal Sex Male 3:26 AM IMAGING MANAGER Gender Identity Male 04/09/2020 8:36 AM CDT Sexual Orientation Straight 04/09/2020 8: 36 AM CDT documented as of this encounter Plan of Treatment Upcoming Encounters Date Type Department Care Team (Late st Contact Info) Description 10/31/2024 7:[address] [facility] [address] [place] [phone] Phuc Cruz MD [address] [place], [place] [address] 11/06/2024 9:00 AM CDT Office Visit [facility] [address] [place] [phone] Phuc Cruz MD [address] [place] [address] 01/16/2025 12:45 PM CDT Office Visit [facility] [place] [place] [phone] Lary Schmitz, [employer] [facility] [address] [facility] [place], [place] [address] documented as of this encounter Procedures Procedure Name Priority Date/Time Associated Diagnosis Comments IONIZED CALCIUM Routine 07/23/2024 12:16 PM IMAGING MANAGER BASIC METABOLIC PANEL Routine 07/23/2024 12:16 PM IMAGING MANAGER WBC AND DIFFERENTIAL Routine 07/20/2024 11:16 PM IMAGING MANAGER CBC WITH PLATELETS Routine 07/20/2024 11 :16 PM IMAGING MANAGER ROUTINE UA WITH MICROSCOPIC Routine 07/20/2024 2:00 AM IMAGING MANAGER TSH Routine 06/26/2024 10:28 AM IMAGING MANAGER TESTOSTERONE TOTAL Routine 06/26/2024 10 :28 AM IMAGING MANAGER LIPID PROFILE Routine 06/26/2024 10:28 AM IMAGING MANAGER CREATININE Routine 06/26/2024 10:28 AM IMAGING MANAGER documented in this encounter Results * Ionized Calcium (07/23/2024 12:16 PM IMAGING MANAGER) Calcium Ionized (External) 1.13 1.11 - 1.33 mmol/L NON-INTERFACED (ONBASE SCANS) Blood BLOOD SPECIMEN / Unknown 07/23/2024 12:16 PM IMAGING MANAGER Narrative NIKOLE PFT - 09/26/2024 10:11 AM IMAGING MANAGER Verified by Nieves Arredondo on 09/26/2024. us Provider Outside LAB - BLOOD ORDERABLES Edited R esult - Final NIKOLE PFT NON-INTERFACED (ONBASE SCANS) * (ABNORMAL) Basic metabolic panel (07/23/2024 12:16 PM IMAGING MANAGER) Sodium (External) 135(L) 138 - 146 mmol/L NON-INTERFACED (ONBASE SCANS) Potassium (External) 4.3 3.5 - 4.9 mmol/L NON-INTERFACED (ONBASE SCANS) Chloride (External) 97(L) 98 - 109 mmol/L NON-INTERFACED (ONBASE SCANS) CO2 (External) 27 20 - 32 mmol/L NON-INTERFACED (ONBASE SCANS) Urea Nitrogen (External) 37(H) 8 - 26 mg/dl NON-INTERFACED (ONBASE SCANS) Creatinine (External) 2.3(H) 0.6 - 1.3 mg/dl NON-INTERFACED (ONBASE SCANS) Glucose (External) 118(H) 60 - 115 mg/dl NON-INTERFACED (ONBASE SCANS) Blood BLOOD SPECIMEN / Unknown 07/23/2024 12:16 PM IMAGING MANAGER Narrative SERENITYEZE PFT - 09/26/2024 10:11 AM IMAGING MANAGER Verified by Nieves Arredondo on 09/26/2024. Provider Outside LAB - BLOOD ORDERABLES Edited R [facility] NIKOLE PFT NON-INTERFACED (ONBASE SCANS) * (ABNORMAL) CBC with platelets (07/20/2024 11:16 PM IMAGING MANAGER) Pathologist [facility] WBC Count (External) 7.88 4.50 - 11.00 K/uL NON-INTERFACE D (ONBASE SCANS) RBC Count (External) 3.59(L) 4.30 - 5.90 m/uL NON-INTERFACE D (ONBASE SCANS) Hemoglobin (External) 12.3(L) 13.5 - 17.5 gm/dl NON-INTERFACE D (ONBASE SCANS) Hematocrit (External) 36.2(L) 37.0 - 53.0 % NON-INTERFACE D (ONBASE SCANS) MCV (External) 101(H) 80 - 100 fL NON-INTERFACE D (ONBASE SCANS) MCH (External) 34 26 - 34 pg NON- INTERFACE D (ONBASE SCANS) MCHC (External) 34 32 - 36 gm/dl NON-INTERFACE D (ONBASE SCANS) Platelet Count (External) 194 140 - 440 K/uL NON-INTERFACE D (ONBASE SCANS) RDW (External) 11.7 11.5 - 15.5 % NON-INTERFACE D (ONBASE SCANS) Blood BLOOD SPECIMEN / Unknown 07/20/2024 11:16 PM IMAGING MANAGER Narrative SERENITYEZE PFT - 09/26/2024 10:26 AM IMAGING MANAGER Verified by Nieves Arredondo on 09/26/2024. Provider Outside LAB - BLOOD ORDERABLES Edited R [facility] NIKOLE PFT NON-INTERFACED (ONBASE SCANS) * (ABNORMAL) WBC and differential (07/20/2024 11:16 PM IMAGING MANAGER) % Neutrophils (External) 68.7 42.0 - 72.0 % NON-INTERFACE D (ONBASE SCANS) % Lymphocytes (External) 16.1(L) 20 - 44 % NON-INTERFACE D (ONBASE SCANS) % Monocytes (External) 11.8(H) 0.0 - 11.0 % NON-INTERFACE D (ONBASE SCANS) % Eosinophils (External) 1.9 0.0 - 7.0 % NON-INTERFACE D (ONBASE SCANS) % Basophils (External) 0.1 0.0 - 3.0 % NON-INTERFACE D (ONBASE SCANS) % Immature Granulocytes (External) 1.4 % NON-INTERFACE D (ONBASE SCANS) Absolute Neutrophils (External) 5.41 1.7 - 7.0 K/uL NON-INTERFACE D (ONBASE SCANS) Absolute Lymphocytes (External) 1.30 0.90 - 2.90 K/UL NON-INTERFACE D (ONBASE SCANS) Absolute Monocytes (External) 0.90 0.00 - 0.90 K/UL NON-INTERFACE D (ONBASE SCANS) Absolute Eosinophils (External) 0.15 0.00 - 0.50 K/UL NON-INTERFACE D (ONBASE SCANS) Absolute Basophils (External) 0.01 0.00 - 0.30 K/UL NON-INTERFACE D (ONBASE SCANS) Absolute Immature Granulocytes (External) 0.11 0.00 - 0.30 K/UL NON-INTERFACE D (ONBASE SCANS) Blood BLOOD SPECIMEN / Unknown 07/20/2024 11:16 PM IMAGING MANAGER Narrative NIKOLE LIM - 09/26/2024 10:26 AM IMAGING MANAGER Verified by Nieves Arredondo on 09/26/2024. us Provider Outside LAB - BLOOD ORDERABLES Edited R esult - Final NIKOLE PFDouglas NON-INTERFACED (ONBASE SCANS) * UA with Microscopic (07/20/2024 2:00 AM IMAGING MANAGER) Color Urine (External) Yellow Yellow NON-INTERFAC ED (ONBASE SCANS) Appearance Urine (External) Clear Clear NON-INTERFAC ED (ONBASE SCANS) Glucose Urine (External) Negative Negative NON-INTERFAC ED (ONBASE SCANS) Bilirubin Urine (External) Negative Negative NON-INTERFAC ED (ONBASE SCANS) Specific [place] Urine (External) 1.010 1.000 - 1.030 NON-INTERFAC ED (ONBASE SCANS) Blood Urine (External) Negative Negative NON-INTERFAC ED (ONBASE SCANS) pH Urine (External) 6.5 5.0 - 8.5 NON-INTERFAC ED (ONBASE SCANS) Protein Albumin Ur (External) Negative Negative NON-INTERFAC ED (ONBASE SCANS) Urobilinogen (External) 0.2 0.2 - 1.0 NON-INTERFAC ED (ONBASE SCANS) Nitrites Urine (External) Negative Negative NON-INTERFAC ED (ONBASE SCANS) Leukocyte Esterase Urine (External) Negative Negative NON-INTERFAC ED (ONBASE SCANS) RBC Urine (External) 0-2 0 - 2 NON-INTERFAC ED (ONBASE SCANS) WBC Urine (External) 0-2 0 - 5 NON-INTERFAC ED (ONBASE SCANS) Squamous Epithelial Urine (External) None None-few NON-INTERFAC ED (ONBASE SCANS) Bacteria Urine (External) None None NON-INTERFAC ED (ONBASE SCANS) Urine 07/20/2024 2:00 AM IMAGING MANAGER Narrative ELVIRAE PFT - 07/20/2024 2:00 AM IMAGING MANAGER Verified by Nieves Arredondo on 09/26/2024. Verified by Feliberto Rankin on 09/26/2024. us Provider Outside LAB - URINE ORDERABLES Edited R esult - Final BREEZLiana PFT NON-INTERFACED (ONBASE SCANS) * TSH (06/26/2024 10:28 AM IMAGING MANAGER) TSH (External) 2.720 0.270 - 4.200 uIU/mL NON-INTERFACED (ONBASE SCANS) Blood BLOOD SPECIMEN / Unknown 06/26/2024 10:28 AM IMAGING MANAGER Narrative ELVIRAE PFT - 09/26/2024 10:26 AM IMAGING MANAGER Verified by Nieves Arredondo on 09/26/2024. Provider Outside LAB - BLOOD ORDERABLES Edited [facility] BREEZE PFT NON-INTERFACED (ONBASE SCANS) * Lipid Profile (06/26/2024 10:28 AM IMAGING MANAGER) Cholesterol (External) 182 90 - 199 mg/dL NON-INTERFACED (ONBASE SCANS) LDL Cholesterol Calculated (External) 73 <100 mg/dL NON-INTERFACED (ONBASE SCANS) HDL Cholesterol (External) 93 >=40 mg/dL NON-INTERFACED (ONBASE SCANS) Blood BLOOD SPECIMEN / Unknown 06/26/2024 10:28 AM IMAGING MANAGER Narrative BREEZE PFT - 09/26/2024 10:26 AM IMAGING MANAGER Verified by Nieves Arredondo on 09/26/2024. Provider Outside LAB - BLOOD ORDERABLES Edited [employer] Performing Organization Address [facility] Co de Phone Number SERENITYEZE PFT NON-INTERFACED (ONBASE SCANS) * (ABNORMAL) Creatinine (06/26/2024 10:28 AM IMAGING MANAGER) Creatinine (External) 1.7(H) 0.5 - 1.5 mg/dl NON-INTERFACED (ONBASE SCANS) Blood BLOOD SPECIMEN / Unknown 06/26/2024 10:28 AM IMAGING MANAGER Narrative BREEZE PFT - 09/26/2024 10:26 AM IMAGING MANAGER Verified by Nieves Arredondo on 09/26/2024. Provider Outside LAB - BLOOD ORDERABLES Edited [facility] [facility] [place] Performing Organization Address City/[facility]/ZIP Co de Phone Number SERENITYEZE PFT NON-INTERFACED (ONBASE SCANS) * (ABNORMAL) Testosterone total (06/26/2024 10:28 AM IMAGING MANAGER) Testosterone Total (External) 253(L) 300 - 720 ng/dL NON-INTERFACE D (ONBASE SCANS) Blood BLOOD SPECIMEN / Unknown 06/26/2024 10:28 AM IMAGING MANAGER Narrative NIKOLE PFT - 09/26/2024 10:26 AM IMAGING MANAGER Verified by Nieves Arredondo on 09/26/2024. us Provider Outside LAB - BLOOD ORDERABLES Edited R esult - Final NIKOLE PFT NON-INTERFACED (ONBASE SCANS) documented in this encounter Visit Diagnoses Not on filedocumented in this encounter Additional Health Concerns Assessment Noted Time PHQ-9 Depression Total Score: 14 021 7:02 AM CDT documented as of this encounter Care Teams Wood Tile Installer Relationship Specialty Start Date End Date Andrew Erickson MD PCP - General Family Practice 11/12/17 Sandoval Boggs MD [address] [place] [phone] Clinical Neurophysiology 11/03/18 Jordan Erickson MD [address] [address] 11/03/[address] [facility] [address] [place] [phone] Pharmacist Pharmacist 06/01/21 Heidy Harrell DO [address] [place] [id number] Neurology 09/28/21 Heidy Harrell DO [address] [place] [id number] Assigned Neuroscience Provider 04/17/[address] [facility] [address] [place] [address] Assigned MTM Pharmacist 10/14/23 Pablito Paulson MD [address] [place] [address] Assigned Pulmonology Provider 03/13/24 Phuc Cruz MD [address] [place], [place] [phone] Cardiovascular Disease 09/20/24 documented as of this encounter
--- OUTSIDE RECORDS SUMMARY | 2024-09-26 12:17 | XMS_ITS | Encounter Summary ---
Author Organization [facility] Address [address] [place] [address] Care Team Providers Care Sole Sewer Hand Name Role Phone Andrew Erickson MD Primary Care Provider [phone] Sandoval Boggs MD Unavailable [phone] Jordan Erickson MD Unavailable [phone] Essence Wise [facility] Unavailable [phone] Heidy Harrell DO Unavailable [phone] Heidy Harrell DO Unavailable [phone] Essence Wise [facility] Unavailable [phone] Pablito Paulson MD Unavailable Reason for Referral * Occupational Therapy (Routine: Next available opening) - Pending Review Specialty Diagnoses / Procedures Referred By Ranjeet gleason Referred To Contact Diagnoses Parkinson's disease without dyskinesia or fluctuating manifestations (H) Memory problem Lary Schmitz, EVERETTE TOE LASTER [address] [facility] [id number] [place] [address] Phone: tel: fax: Referral ID Status Reason Start Date Expiration Date V isits Requested Visits Authorized [id number] Pending Review 09/19/2024 09/19/2025 1 1 Question Answer Course of Action: Evaluation and Treatment Specialty Services: Per Associated Diagnosis Patient Scheduling Instructions: [facility] will call you to coordinate your care as prescribed by your provider. If you don't hear from a payable representative within 2 business days, please call . Additional Information: Hx Parkinson's Disease + former EtOH use. Having mild cognitive dysfunction. To improve Cognitive/Memory ability Comments Please be aware that coverage of these services is subject to the terms and limitations of your health insurance plan. Call member services at your health plan with any benefit or coverage questions. [facility] will call you to coordinate your care as prescribed by your provider. If you don't hear from a payable representative within 2 business days, please call . [facility] will call you to coordinate your care as prescribed by your provider. If you don't hear from a payable representative within 2 business days, please call . [facility] will call you to coordinate your care as prescribed by your provider. If you don't hear from a payable representative within 2 business days, please call . ETRIC ASSISTANT * Rehab Therapy Physical Therapy (Routine: Next available opening) - Pending Review Specialty Diagnoses / Procedures Referred By Ranjeet gleason Referred To Contact Diagnoses Parkinson's disease without dyskinesia or fluctuating manifestations (H) Falls frequently Peripheral polyneuropathy Lary Schmitz APRN TOE LASTER [address] [facility] [id number] [place] [address] Phone: tel: fax: Referral ID Status Reason Start Date Expiration Date V isits Requested Visits Authorized [id number] Pending Review 09/19/2024 09/19/2025 1 1 Question Answer Course of Action: Evaluation and Treatment Specialty Services: Per Associated Diagnosis Patient Scheduling Instructions: [facility] will call you to coordinate your care as prescribed by your provider. If you don't hear from a payable representative within 2 business days, please call . Additional Information: Hx of PD + former EtOH use w/ neuropthy to the knees + severe orthostasis. Working on balance issues and safe daily exercise program Comments Please be aware that coverage of these services is subject to the terms and limitations of your health insurance plan. Call member services at your health plan with any benefit or coverage questions. [facility] will call you to coordinate your care as prescribed by your provider. If you don't hear from a payable representative within 2 business days, please call . ETRIC ASSISTANT * CV Cardio consult (Routine: Next available opening) - Pending Review Specialty Diagnoses / Procedures Referred By Ranjeet gleason Referred To Contact Cardiovascular Disease Diagnoses Orthostatic hypotension Lary Schmitz APRN CNP [address] [address] Phone: tel: fax: Referral ID Status Reason Start Date Expiration Date V isits Requested Visits Authorized [id number] Pending Review 09/19/2024 09/19/2025 1 1 Question Answer Reason for Consult: General Cardiology Patient Scheduling Instructions: [facility] will call you to coordinate your care as prescribed by your provider. If you don't hear from a payable representative within 2 business days, please call [phone]. Additional Information: Variable very high and very low BP, Orthostatic Hypotesion on Florinef Comments Please be aware that coverage of these services is subject to the terms and limitations of your health insurance plan. Call member services at your health plan with any benefit or coverage questions. [facility] will call you to coordinate your care as prescribed by your provider. If you don't hear from a payable representative within 2 business days, please call [phone]. ETRIC ASSISTANT Reason for Visit * Reason Comments Consult Parkinson follow up Per Dr. Harrell Encounter Details Date Type Department Care Team (Late st Contact Info) Description 09/19/2024 9:40 AM OBSTETRIC ASSISTANT Office Visit [facility] [address] [address] Lary Schmitz APRN CNP [address] [id number] Parkinson's disease without dyskinesia or fluctuating manifestations (H) (Primary Dx); Orthostatic hypotension; Falls frequently; Memory problem; Peripheral polyneuropathy; Fatigue, unspecified type Social History Tobacco Use Types Packs/Day Years [...] AM CDT Legal Sex Male 3:26 AM OBSTETRIC ASSISTANT Gender Identity Male 04/09/2020 8:36 AM CDT Sexual Orientation Straight 04/09/2020 8: 36 AM CDT documented as of this encounter Last Filed Vital Signs Vital Sign Reading Time Taken Comments Blood Pressure 96/66 09/19/2024 9:48 AM OBSTETRIC ASSISTANT Pulse 89 09/19/2024 9:48 AM OBSTETRIC ASSISTANT Temperature - - Respiratory Rate - - Oxygen Saturation - - Inhaled Oxygen Concentration - - Weight - - Height - - Body Mass Index - - documented in this encounter Patient Instructions * Patient Instructions* Lary Schmitz APRN TOE LASTER - 09/19/2024 9:40 AM OBSTETRIC ASSISTANT - No changes to your medications today - For your blood pressure issues: - Cardiology referral - Continue with your blood pressure log. Please add which days your are taking Florinef - See below for some daily life things that can help with Orthostatic Blood Pressure For your balance issues - PT referral - Blood Tests: Vit B1, Vit B6, Vit B12, TSH For your cognition - We may consider medications in the future but I want your blood pressure under better control first - Occupational Therapy - The best things for your brain health are good and regular sleep, exercise, staying social, and reducing stress - Continue working with your Men's Groups - Follow-up in 3-4 months ORTHOSTATIC HYPOTENSION Symptoms of low blood pressure: - Dizzy/lightheaded - Fainting - Headache - Nausea - Cold, clammy, or pale skin Does your blood pressure drop after meals? Do you often get dizzy when standing up? Techniques to treat orthostatic hypotension: - Wear compression stockings - Elevate legs when sitting - Change positions slowly (I.e sitting to standing) - Increase fluids and salt (V8 in the morning) - Eat small meals 5 times a day - Avoid hot showers - Drink small amounts of caffeine When blood pressure is low: - Drink 12 ounces of water in a short amount of time. In about 15-30 minutes your blood pressure should start to come up (a total of 10-15 points) - First thing in the morning, drink 8-12 oz V8. This will help you to hold onto the water that you do drink during the day - Liquid IV - recommended by a senior wind energy consultant - can be purchased at [employer] and other places. Medications: - Midodrine (Proamatine) - increases arteriol and venous vascular tone thus elevating blood pressure - Fludrocortisone (Florinef) - it produces marked sodium retention thus helps the body hold onto water, increasing blood pressure - Pyridostigmine (Mestinon) - inhibits the breakdown of acetylcholine by cholinesterase, thus improves nerve cell transmission for orthostatic hypotension patients and triggers the reflex that controls blood pressure in all positions - Droxidopa - vasoconstriction of peripheral arteries and veins Supine Hypertension For people with orthostatic hypotension (too low blood pressure when standing), they often have theopposite problem as well where their blood pressure is too high when lying down (ie supine hypertension) for extended periods of time such as during sleep. Because this can be dangerous for the brain, we recommend that your do not sleep flat but instead have your head raised by at least 30 degrees PD EXERCISE RESOURCES [facility]: [place] exercise class and support group: [phone] or [email or web address]. https://www.parkinson.org/blog/awareness/27-cjprrzj-fakyqk https://www.pingpongparkinson.org/ Https://www.ayh8ehgk.org/ Https://www.powerforparkinsons.org/ Https://www.parkinson.org/[place] https://www.apdaparkinson.org/community/[place]/dsufj-tuqkvybts-wjjfnhi/ Https://www.apdaparkinson.org/community/[place]/ Https://www.ogi8qirh.org/ pdwellnessHouston [facility].com or call ADPDA Listing of Events https://www.apdaparkinson.org/upcoming-events/?eType=EmailBlastContent&Arcenio=5a8e8 796-qc72-47shrq23-16cd-v13v-15600h73bnfp Dance for Parkinsons https://danceforparkinsons.org/resources/lmgtv-qz-fvop Umberto Chi Https://www.youREPLICEL LIFE SCIENCESube.com/channel/OW03N6InvNvfVMZKsh4cSKcs/feed Yoga for Parkinson's Disease https://www.apdaparkinson.org/events/yoga-for-pd/?eType=EmailBlastContent&Arcenio=5a 2m1798-bs27-95ho-u76a-36365g35enxw Sing Loud for Parkinson's Disease https://sl79pnf.[facility]./meeting/register/tZAtd--trjsuEtIEm1ac_jwPqllCnahObfLA [employer] https://www.apdaparkinson.org/events/terh-lsxrmq-cefsfv/ ETRIC ASSISTANT ETRIC ASSISTANT ETRIC ASSISTANT ETRIC ASSISTANT ETRIC ASSISTANT ETRIC ASSISTANT ETRIC ASSISTANT documented in this encounter Progress Notes * [address], Tseganesh H, EVERETTE TOE LASTER - 09/19/2024 9:40 AM CST ASSESSMENT: Parkinson's Disease: Orthostatic hypotension: Balance Problems: Memory/Cognitive Problems: Neuropathy: PLAN: __ All questions addressed and the following patient instructions provided: - - No changes to your medications today - For your blood pressure issues: - Cardiology referral - Continue with your blood pressure log. Please add which days your are taking Florinef - See below for some daily life things that can help with Orthostatic Blood Pressure - For your balance issues - PT referral - Blood Tests: Vit B1, Vit B6, Vit B12, TSH - For your cognition - We may consider medications in the future but I want your blood pressure under better control first - Occupational Therapy - The best things for your brain health are good and regular sleep, exercise, staying social, and reducing stress - Continue working with your JoMaJa's Groups - Follow-up in 3-4 months __ Written education on orthostatic hypotension and treatment, and PD exercise resources provided MOVEMENT DISORDERS CL[facility]IC [facility] LOCATION PATIENT: Kar Aguilar : 1950 VANI: September 19, 2024 REASON FOR VISIT: Parkinson's Disease (PD) follow up. HPI: Kar Aguilar is a 73 yr old R-handed male w/ PMHx TIA, peripheral neuropathy, s/p L5-S1 lumbar fusion, HTN, HLD, asthma, ISABEL, diaphragm paralysis, pancreatic insufficiency, gout, EtOH use disorder, and depression who presents for ongoing management of Parkinson's Disease. He has previously been followed by Dr Harrell. He is here by himself. The patient reports a long-time postural tremor in his head and hands, similar to his father and youngest sister that improves with EtOH. He also has a Hx of EtOH abuse. He was also having loss of smell and RBD symptoms treated with Clonazepam. Then he started noticing a rest tremor in his R arm and micrographia and so presented to Dr. Erickson at the [facility] in 2018 who noted additional parkinsonisms and diagnosed him with PD. He was also having cognitive concerns but Neuropsych testing in 2019 noted only mild executive dysfunction without dementia. CD/LD was started with good effect. He transferred his care to [facility] later in 2018 where he was first followed by Dr. Boggs until he retired and his care was taken over by Dr. Harrell in 2021. By this point, his symptoms had progressed to include ongoing tremor, frequent falls, ongoing RBD, and orthostatic dizziness. INTERVAL EVENTS: The patient was last seen by Dr. Harrell on 01/11/2024, at which time the patient was noticing more tremor. As such, added CD/LD in the afternoon/evening. He was also having trouble with orthostatic hypotension (OH) complicated by intermittent HTN. As such, did not increase Fludrocortisone but instead recommended increasing electrolyte intake as well as limiting his EtOH while being given a referral to Psychiatry for mood and EtOH use. He was also seen by Dr. Wise, Pharm.D. in [facility] on 04/10/2024, but felt his symptoms were stable and so no medication changes were made. Today, he quit drinking alcohol 3 months ago. Before he quit, he was drinking 3- 4 drinks of liquor daily. He has lost about 20 lbs unintentionally after he stopped drinking alcohol, but has regained 10 lbs. He has numbness & tingling in his feet. Balance: He reports having poor stamina. He has slowed down. Balance is off. He falls frequently about 3-4 x in the last 3 weeks. Falls are forward. He has a cane in his truck & at home. He also has a walker. He determines if he needs to use his cane daily and depending on the day, he may or may not use it. No change in gait & balance with Carbidopa/Levodopa (CD/LD). No wearing off. If hemisses his dose his notices slow speech, but pt doesn't notice a change. Tremor is not bad. He has been splitting mcnamara [place] machine[place] I[place] stubborn and push myself. 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 Continues to follow with Dr. Gillette. Uses CPAP machine. sleeps in a separate room. Mood. Given a referral to Psychiatry but not yet made an appointment. Not interested in Psychotherapy at this time. His son is diagnosed with brain cancer. His support system is his . OH: He brought Orthostatic Vitals diary. Reviewed and sent to be scanned. He has significant SBP drop. He also has fluctuation very high and low BP. Taking Fludrocortisone 0.1 mg 3 x a week. He has lightheadedness almost every time he stands up. He manages it by sitting down or standing still untillightheadedness passes. He had one fall due to OH that he had to go to the bathroom in a hurry and didn't take time to stand up slowly. He drinks 4-5 bottles of water daily. Memory: This is bothersome. He reports decline in memory. He notices this with Bible study, after reading commentaries, he has a hard time where he started/ what he was looking up. He drives and hasn't had issues. His manages his meds, and cooks. He also reports having fatigue. MEDICATIONS: Pertinent Movement Medications - 6-9 am 2-4 pm 9-10:30 pm 7-9 pm CD/LD IR (25-100 mg) 2 2 2 CD/LD CR (50-200 mg) 1 Clonazepam (1mg) 1 Fludrocortisone (0.1 mg) 1 (every M/W/F) PHYSICAL EXAM: 09/19/2024 9:44 AM 09/19/2024 9:48 AM Vital Signs Sitting Standing Systolic 119 96 Diastolic 66 66 Pulse 79 89 Last Sinemet dose: 6 am 03/24/2023 7:00 AM 09/02/2023 2:00 PM UPDRS Motor Scale Time: 07:44 Medication On On R Brain DBS: None None L Brain DBS: None None Dyskinesia (LID) No No Speech 0 0 Facial Expression 0 Finger Taps R 1 1 Finger Taps L 1 1 Hand Mvt R 1 1 Hand Mvt L 1 1 Pron-/Supinate R 1 1 Pron-/Supinate L 2 1 Toe Tap R 1 1 Toe Tap L 2 1 Leg Agility R 0 1 Leg Agility L 1 1 Arise From Chair 1 2 Gait 1 2 Gait Freezing 0 0 Posture 1 1 Global Spont Mvt 0 1 Postural Tremor RUE 1 1 Postural Tremor LUE 1 1 Kinetic Tremor RUE 1 1 Kinetic Tremor LUE 1 2 Rest Tremor RUE 1 0 Rest Tremor LUE 0 1 Rest Tremor RLE 1 0 Rest Tremor LLE 1 0 Rest Tremor Lip/Jaw 1 0 Rest Tremor Constancy 1 1 DATA: MRI Brain w/o contrast (11/21/2018) IMPRESSION: No structural abnormality noted. Mild cerebral volume loss and mild/moderate leukoaraiosis. Neuropsych Eval (12/21/2018) IMPRESSION: Current results indicate mild executive dysfunction, including perseverations, and difficulty with conceptualization and shifting and maintaining cognitive set. Information processing speed is slowed. Single word reading abilities reflect a relative weakness, and it is noted that he reported reading difficulties in school, so this likely reflects a lifelong pattern of performance. Performance otherwise falls within normal limits across cognitive domains, including learning and memory, language,visual processing, and complex attentional processing. He endorses a moderate level of depressive sy mptomatology, as well as significant apathy. This pattern of performances is suggestive primarily of frontal system involvement. He continues tomanage his instrumental activities of daily living independently. The findings do not appear to reflect dementia at this time, and of note, are only mildly abnormal. The etiology of his cognitive difficulties is likely multifactorial. Parkinson's disease is likely the primary contributor. Depressedmood and nonrestorative sleep are also likely to exacerbate his cognitive difficulties. Despite being prescribed medications, he continues to endorse moderate depressive symptomatology. If not already considered, review of his psychotropic medication seems warranted. He is participating in marriage counseling, and may also benefit from participating in individual psychotherapy as well, which could address strategies to manage this depressed mood, in addition to relationship issues. It is noted that by his report he has cut back substantially on alcohol use in the last few months, going from five drinks a day to one drink a day. Finally, although hearing appeared adequate for testing, he didreport hearing loss during the interview. If not already considered, he may benefit from referral to Audiology for further evaluation and treatment recommendations. Pt was seen with Shy Lynch MD, Movement Disorder Fellow. Today I spent 70 minutes caring for the patient. Time was spent in reviewing records, obtaining history, answering questions, examining, placing referrals, ordering labs, and documentation. Gabby Schmitz DNP, EVER[facility]TE [facility] Neu[facility] The longitudinal plan of care for the diagnosis(es)/condition(s) as documented were addressed during this visit. Due to the added complexity in care, I will continue to support Marck in the subsequent management and with ongoing continuity of care. ETRIC ASSISTANT documented in this encounter Nursing Notes * Gabriela Butterfield MA - 09/19/2024 9:40 AM CST Chief Complaint Patient presents with Consult Parkinson follow up Per Dr. Julio Cesar Butterfield MA on 09/19/2024 at 9:46 AM ETRIC ASSISTANT documented in this encounter Plan of Treatment Upcoming Encounters Date Type Department Care Team (Late st Contact Info) Description 10/31/2024 7:30 AM CDT Appointment [facility] [address] [facility] [address] [place] [address] Phuc Cruz MD [address] [place] [address] 11/06/2024 9:00 AM CDT Office Visit [facility] [address] [facility] [address] [place] [phone] Phuc Cruz MD [address] [place] [id number] 01/16/2025 12:45 PM CDT Office Visit [facility] [address] [place] [phone] Lary Schmitz, BATTALION CHIEF [address], [place] [address] Scheduled Orders Name Type Priority Associated Diagnoses Orde r Schedule TSH with free T4 reflex Lab Routine Memory problem Peripheral polyneuropathy Fatigue, unspecified type Expected: 09/19/2024 (Approximate), Expires: 09/19/2025 Vitamin B12 Lab Routine Falls frequently Memory problem Peripheral polyneuropathy Expected: 09/19/2024 (Approximate), Expires: 09/19/2025 Vitamin B1 whole blood Lab Routine Falls frequently Memory problem Peripheral polyneuropathy Expected: 09/19/2024 (Approximate), Expires: 09/19/2025 Vitamin B6 Lab Routine Falls frequently Memory problem Peripheral polyneuropathy Expected: 09/19/2024 (Approximate), Expires: 09/19/2025 Scheduled Referrals Name Type Priority Associated Diagnoses Orde r Schedule Adult Cardiology Eval Animal Control Licensing Worker Referral Referral Routine: Next available opening Orthostatic hypotension Expected: 09/19/2024 (Approximate), Expires: 09/19/2025 Physical Therapy Animal Control Licensing Worker Referral Referral Routine: Next available opening Parkinson's disease without dyskinesia or fluctuating manifestations (H) Falls frequently Peripheral polyneuropathy Expected: 09/19/2024 (Approximate), Expires: 09/19/2025 Occupational Therapy Animal Control Licensing Worker Referral Referral Routine: Next available opening Parkinson's disease without dyskinesia or fluctuating manifestations (H) Memory problem Expected: 09/19/2024 (Approximate), Expires: 09/19/2025 documented as of this encounter Visit Diagnoses Diagnosis Parkinson's disease without dyskinesia or fluctuating manifestations (H)- Primary Orthostatic hypotension Falls frequently Personal history of fall Memory problem Memory loss Peripheral polyneuropathy Unspecified hereditary and idiopathic peripheral neuropathy Fatigue, unspecified type documented in this encounter Additional Health Concerns Assessment Noted Time PHQ-9 Depression Total Score: 14 021 7:02 AM CDT documented as of this encounter Care Teams Sole Sewer Hand Relationship Specialty Start Date End Date Andrew Erickson MD PCP - General Family Practice 11/12/17 Sandoval Boggs MD [address] [place] [id number] Clinical Neurophysiology 11/03/18 Jordan Erickson MD [address] [address] 11/03/18 Essence Wise, [facility] [address] [place] [id number] Pharmacist Pharmacist 06/01/21 Heidy Harrell DO [address] [place] [id number] Neurology 09/28/21 Heidy Harrell DO [address] [place] [address] [id number] Assigned Neuroscience Provider 04/17/22 Essence Wise, [facility] [address] [place] [id number] Assigned MTM Pharmacist 10/14/23 Pablito Paulson MD [address] [place] [address] [id number] Assigned Pulmonology Provider 03/13/24 documented as of this encounter
--- OUTSIDE RECORDS SUMMARY | 2024-09-26 12:17 | XMS_ITS | Referral Summary ---
Author Organization [facility] Address [address] [place] [address] Care Team Providers Care Manager Of Applications Development Name Role Phone Andrew Erickson MD Primary Care Provider [phone] Sandoval Boggs MD Unavailable [phone] Jordan Erickson MD Unavailable [phone] [address]ence Wise [facility] Unavailable [phone] Heidy Harrell DO Unavailable [phone] Heidy Harrell DO Unavailable [phone] Essence Wise [facility] Unavailable [phone] Pablito Paulson MD Unavailable Phuc Cruz MD Unavailable [phone] Encounters Date Type Department Care Team Description 09/26/2024 External Order Results [facility] [address] [place] [address] Outside, Provider 09/25/[address] [place] [address] Vanesa Cooper RN Labs Only 09/25/2024 Travel 09/25/2024 9:00 AM CVICU NURSE Office Visit [facility] [id number] [place] [address] [address] [place] [address] Phuc Cruz MD Orthostatic hypotension (Primary Dx); Screening for cardiovascular condition; Parkinson's disease, unspecified whether dyskinesia present, unspecified whether manifestations fluctuate (H); Hyperlipidemia, unspecified hyperlipidemia type; Primary hypertension 09/24/2024 Telephone [facility] [place] [address] [facility] [address] [place] [phone] Lary Schmitz APRN CNP Referral (Labs ) 09/19/2024 Travel 09/19/2024 9:40 AM CVICU NURSE Office Visit [facility] [address] [address] Lary Schmitz APRN CNP Parkinson's disease without dyskinesia or fluctuating manifestations (H) (Primary Dx); Orthostatic hypotension; Falls frequently; Memory problem; Peripheral polyneuropathy; Fatigue, unspecified type 07/26/2024 External Order Results [facility] [address] [place] [phone] Outside, Provider 07/23/2024 External Order Results [facility] [address] [place] [phone] Outside, Provider 07/20/2024 External Order Results [facility] [address] [place] [phone] Outside, Provider from Last 3 Months Allergies Active Allergy Reactions Criticality Noted Date Comments Amylase Rash Low 02/07/2020 Cascara Unknown 02/07/2020 Pancrelipase (Udp-Exgj-Uqyb) Rash Low 020 Nsaids GI Disturbance 02/07/2020 Proteolytic Enzymes Rash Low 02/07/2020 Medications allopurinol (ZYLOPRIM) 300 MG tablet Take 300 mg by mouth daily 3 Active busPIRone (BUSPAR) 10 MG tablet Take 10 mg by mouth 3 times daily Active pravastatin (PRAVACHOL) 40 MG tablet Take 40 mg by mouth daily 0 9 Active Multiple Vitamin (MULTI-VITAMINS) TABS Take 1 tablet by mouth daily 3 Active Cranford-3 Fatty Acids (FISH OIL) 1200 MG capsule Take 1,200 mg by mouth daily Active DULoxetine (CYMBALTA) 60 MG capsule Take 60 mg by mouth every morning Active clonazePAM (KLONOPIN) 1 MG tabletIndication s:S/P lumbar fusion Take 1 tablet (1 mg) by mouth At Bedtime 30 tablet 5 1 Active pcarjoa-hmvyws-s rotease (CREON 24) 06014-[address] units CPEP per EC capsule Take 1 capsule by mouth 3 times daily (with meals) Active gabapentin (NEURONTIN) 300 MG capsule Take 600 mg by mouth at bedtime 3 Active fludrocortisone (FLORINEF) 0.1 MG tabletIndication s:Orthostatic Hypotension Take 0.1 mg by mouth daily. 3 Active carbidopa-levodo pa (SINEMET) 25-100 MG tabletIndication s:Parkinson's disease (H) Take 2 tablets by mouth 2 times daily At 5-6 am and 12 pm. May take another dose in the afternoon if needed = max of 6 tablets/day 540 tablet 3 4 Active carbidopa-levodo pa (SINEMET CR) 50-200 MG CR tabletIndication s:Parkinson's disease (H) Take 1 tablet by mouth at bedtime 90 tablet 3 4 Active RESTASIS 0.05 % ophthalmic emulsion Place 1 drop into both eyes 2 times daily 4 Active tamsulosin (FLOMAX) 0.4 MG capsule Take 0.4 mg by mouth daily. 4 Active finasteride (PROSCAR) 5 MG tablet Take 1 tablet by mouth daily at 2 pm. 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 Constipation 10/12/2012 Overview (11/14/2018): Overview: Bowel movement every 3-4 days. Hard to pass. Is using prunes. Dyspepsia 10/12/2012 Overview (11/14/2018): Overview: Taking over the counter ranitidine. Tremor 10/12/2012 Overview (11/14/2018): Overview: Arms, legs, and right fingers. Asthma 10/11/2012 Overview (11/14/2018): Overview: Spirometry FEV 1 of 78% and FVC 80% of predicted (09/27/2012) no change since 2008. He has a known paralyzed right diaphragm. Denies use of albuterol inhaler. Degenerative arthritis of hip 10/11/2012 Overview (11/14/2018): Overview: Scheduled for left ISAIAH with Dr Huerta 10/23/2012. Depression 10/11/2012 Overview (11/14/2018): Overview: Taking bupropion and citalopram. No therapist. 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 Gout 10/11/2012 Overview (11/14/2018): Overview: Last flare 1991. Taking allopurinol. History of colon polyps 10/11/2012 History of transient ischemic attack (TIA) 10/11 Overview (11/14/2018): Overview: Unable to move left arm (2004) for one day. Admitted to hospital. CT was negative. Followed with Dr Galo Blanco, Neurology. Initiated aspirin 81 mg daily. HTN (hypertension) 10/11/2012 Overview (11/14/2018): Overview: Baseline Creatinine 1.3 (09/27/2012). Echocardiogram (05/01/2007): Grade I diastolic dysfunction with estimated EF 65- 70%. No wall motion abnormalities. No atrial shunt. Hyperlipidemia 10/11/2012 Lumbar disc disease 10/11/2012 Obstructive sleep apnea syndrome 10/11/2012 Resolved Problems Problem Noted Date Diagnosed Date Resolved Date Subdural hematoma 08/26/2020 11/05/2021 Other inflammatory polyneuropathies 07/25/2018 11/05/2021 CKD (chronic kidney disease) stage 3, GFR 30-59 ml/min 10/16/2012 11/05/2021 Overview (11/14/2018): Overview: Baseline Creatinine 1.2 GFR 58 (04/25/2012) Creatinine 1.3 GFR 54 (09/27/2012). Social History Tobacco Use Types Packs/Day Years Used Date Smoking Tobacco: Former Cigarettes Q uit: 1982 Smokeless Tobacco: Never Tobacco Cessation:Counseling Given: Not [...] AM CDT Legal Sex Male 3:26 AM CVICU NURSE Gender Identity Male 04/09/2020 8:36 AM CDT Sexual Orientation Straight 04/09/2020 8: 36 AM CDT Last Filed Vital Signs Vital Sign Reading Time Taken Comments Blood Pressure 103/64 09/25/2024 9:11 AM CVICU NURSE Pulse 76 09/25/2024 9:11 AM CVICU NURSE Temperature 36.4 C (97.5 F) 03/04/2022 7:50 AM CDT Respiratory Rate 16 03/04/2022 7:50 AM CDT Oxygen Saturation 96% 02/21/2024 9:00 AM CDT Inhaled Oxygen Concentration - - Weight 97.1 kg (214 lb) 09/25/2024 9:11 AM CVICU NURSE Height 190.5 cm (6' 3) 09/25/2024 9:11 AM CVICU NURSE Body Mass Index 26.75 09/25/2024 9:11 AM CVICU NURSE Plan of Treatment Upcoming Encounters Date Type Department Care Team (Late st Contact Info) Description 10/31/2024 7:30 AM CDT Appointment [facility] [address] [facility] [address] [place] [phone] Phuc Cruz MD [address] [place] [address] 11/06/2024 9:00 AM CDT Office Visit [facility] [address] [facility] [address] [place] [phone] Phuc Cruz MD [address] [place] [id number] 01/16/2025 12:45 PM CDT Office Visit [facility] [address] [place] [address] Lary Schmitz, SUPERVISOR TOWER [address], [place] [address] Medical Devices Implanted Type Area Technical Account Manager Device Identifier Shelf Expiration Date Model / Serial / Lot Bone Cement Radiopaque Simplex P Speedset 6192-1-001 Implanted:Qty : 1 on 02/13/2020 by Skip Carias MD at [facility] Cement, Bone Right: Shoulder [employer] 01/19/2021 6192-1-001 / / [id number] Creo 5.5, 7.5x50mm Fung Coated Screws Implanted:Qty : 4 on 05/02/2020 by Chester Venegas MD at [facility] Metallic Hardware/A nchor N/A: Spine Lumbar [employer] 11/25/2026 5119.1751S / / [id number] Creo 5.5, 7.5x45mm Fung Coated Screws Implanted:Qty : 1 on 05/02/2020 by Chester Venegas MD at [facility] Metallic Hardware/A nchor N/A: Spine Lumbar [employer] 07/16/2024 5119.1746S / / [id number] Creo 5.5, 7.5x45mm Fung Coated Screws Implanted:Qty : 1 on 05/02/2020 by Chester Venegas MD at [facility] Metallic Hardware/A nchor N/A: Spine Lumbar [employer] 10/10/2024 5119.1746S / / [id number] Creo 5.5, 7.5x50mm Fung Coated Screws Implanted:Qty : 2 on 05/02/2020 by Chester Venegas MD at [facility] Metallic Hardware/A nchor N/A: Spine Lumbar [employer] 12/19/2026 5119.1751S / / [id number] Creo Locking Cap Implanted:Qty : 10 on 05/02/2020 by Chester Venegas MD at [facility] Metallic Hardware/A nchor N/A: Spine Lumbar [employer] 1119.0000 / / [id number] 10SEP 2020 Rise Spacer [id number], 7-14mm Implanted:Qty : 1 on 05/02/2020 by Chester Venegas MD at [facility] Metallic Hardware/A nchor N/A: Spine Lumbar [employer] 193.203 / / [id number] 10SEP 2020 Rise Spacer [id number], 8-15mm, 10deg Implanted:Qty : 1 on 05/02/2020 by Chester Venegas MD at [facility] Metallic Hardware/A nchor N/A: Spine Lumbar [employer] 193.223 / / [id number] 10SEP 2020 Caliber Spacer 12-26mm, 7mm, 0-10deg Implanted:Qty : 2 on 05/02/2020 by Chester Venegas MD at [facility] Metallic Hardware/A nchor N/A: Spine Lumbar [employer] 594.273 / / [id number] 10SEP 2020 5.5mm Curved Olaf [place] Chrome, 125mm Implanted:Qty : 2 on 05/02/2020 by Chester Venegas MD at [facility] Metallic Hardware/A nchor N/A: Spine Lumbar [employer] 7119.7125 / / [id number] 10SEP 2019 Imp Kit Syndemosis Arthrex Tightrope Knotless Ss [id number] Implanted:Qty : 2 on 09/24/2020 by Skip Carias MD at [facility] Metallic Hardware/A nchor Right: Ankle ARTHREX 05/21/2024 AR-[id number] / / [id number] Imp Scr Arthrex Lp Can 4.0x50mm Long Thrd Ss [id number] Implanted:Qty : 1 on 09/24/2020 by Skip Carias MD at [facility] Metallic Hardware/A nchor Right: Ankle ARTHREX AR-8840CL-5 0 / / IMP 4MM CANNULATED LONG THREAD 48MM Screw Bsplt 35mm 6.5mm Aqls Prfrm Glnd Rvrs Cntr Ns Upi769 - [id number] Implanted:Qty : 1 on 03/03/2022 by Skip Carias MD at [facility] Metallic Hardware/A nchor Left: Shoulder [employer] MED[employer] TECHN [id number] / / [id number] 02 MAR 2022 Screw Peripheral 5.0x34mm Arn155 - [id number] Implanted:Qty : 1 on 03/03/2022 by Skip Carias MD at [facility] Metallic Hardware/A nchor Left: Shoulder [employer] INC [id number] / / [id number] 02 MAR 2022 Screw Peripheral 38mm - [id number] Implanted:Qty : 1 on 03/03/2022 by Skip Carias MD at [facility] Metallic Hardware/A nchor Left: Shoulder [employer] INC PEJ727 / / 8009 02 MAR 2022 Baseplate Lateral Rvrs 29mm Offs 15d Wedge Augment Szz545 - [id number] Implanted:Qty : 1 on 03/03/2022 by Skip Carias MD at [facility] Total Joint Component/ Insert Left: Shoulder [employer]N 01/01/2027 OOB864 / [id number] / Gleosphere Lateralized Standard 42mm Wdk972 - [id number] Implanted:Qty : 1 on 03/03/2022 by Skip Carias MD at [facility] Total Joint Component/ Insert Left: Shoulder [employer] 05/20/2026 PFP485 / [id number] / Insert Hum Revision Reverse +6 42mm 12.5d Gla902r - [id number] Implanted:Qty : 1 on 03/03/2022 by Skip Carias MD at [facility] Total Joint Component/ Insert Left: Shoulder [employer] 12/17/2025 [id number] / [id number] / Tray Reverse Low Offset +0 Lmt835 - [id number] Implanted:Qty : 1 on 03/03/2022 by Skip Carias MD at [facility] Total Joint Component/ Insert Left: Shoulder [employer] 10/07/2026 [id number] / [id number] / Stem Humeral Anatomic Std Ptc 7b - [id number] Implanted:Qty : 1 on 03/03/2022 by Skip Carias MD at [facility] Total Joint Component/ Insert Left: Shoulder [employer] INC 06/01/2026 [id number] / [id number] / Cortiloc Glenoid Augment Large Right 15 Degree Implanted:Qty : 1 on 02/13/2020 by Skip Carias MD at [facility] Right: Shoulder TORNIER 11/29/2024 [id number] / [id number] / Standard Ptc Humeral Stem Size 6b 132.5 Degree Length 86 Mm Implanted:Qty : 1 on 02/13/2020 by Skip Carias MD at [facility] Right: Shoulder TORNIER 07/04/2024 [id number] / [id number] / Stb Humeral Head 51 Mm X 20 Mm Implanted:Qty : 1 on 02/13/2020 by Skip Carias MD at [facility] Right: Shoulder TORNIER 05/26/2022 [id number] / [id number] / Creo 5.5, 7.5x40mm Fung Coated Screw Implanted:Qty : 1 on 05/02/2020 by Chester Venegas MD at [facility] N/A: Spine Lumbar [employer] 06/25/2024 5119.1741S / / [id number] Creo 5.5, 7.5x40mm Fung Coated Screw Implanted:Qty : 1 on 05/02/2020 by Chester Venegas MD at [facility] N/A: Spine Lumbar [employer] 09/13/2024 5119.1741S / / [id number] Graft Bone Infuse Bmp Lg [id number] Implanted:Qty : 1 on 05/02/2020 by Chester Venegas MD at [facility] N/A: Spine Lumbar [employer] 12/20/2020 [id number] / / [id number] Stainless Steel 2-Hole Buttress Plate Implanted:Qty : 1 on 09/24/2020 by Skip Carias MD at [facility] Right: Ankle [id number] AR-8958-01 / / [id number] 21 Imp 4mm Cannulated Long Thread 48mm Implanted:Qty : 1 on 09/24/2020 by Skip Carias MD at [facility] Right: Ankle ARTHREX AR-8840CL-4 4 [id number] Procedures Procedure Name Priority Date/Time Associated Diagnosis Comments EKG 12-LEAD COMPLETE W/READ - CLINICS Routine 09/25/2024 Screening for cardiovascular condition BASIC METABOLIC PANEL Routine 07/26/2024 10:18 AM CVICU NURSE EXTERNAL LAB RESULTS Routine 07/26/2024 10:18 AM CVICU NURSE IONIZED CALCIUM Routine 07/23/2024 12:16 PM CVICU NURSE BASIC METABOLIC PANEL Routine 07/23/2024 12:16 PM CVICU NURSE WBC AND DIFFERENTIAL Routine 07/20/2024 11:16 PM CVICU NURSE BASIC METABOLIC PANEL Routine 07/20/2024 11:16 PM CVICU NURSE CREATININE Routine 07/20/2024 11:16 PM CVICU NURSE CALCIUM Routine 07/20/2024 11:16 PM CVICU NURSE GLUCOSE Routine 07/20/2024 11:16 PM CVICU NURSE HEPATIC FUNCTION PANEL Routine 07/20/2024 11:16 PM CVICU NURSE CK TOTAL Routine 07/20/2024 11:16 PM CVICU NURSE CRP INFLAMMATION Routine 07/20/2024 11:1 6 PM CVICU NURSE EXTERNAL LAB RESULTS Routine 07/20/2024 11:16 PM CVICU NURSE CBC WITH PLATELETS Routine 07/20/2024 11 :16 PM CVICU NURSE EXTERNAL LAB RESULTS Routine 07/20/2024 2:00 AM CVICU NURSE ROUTINE UA WITH MICROSCOPIC Routine 07/20/2024 2:00 AM CVICU NURSE BASIC METABOLIC PANEL Routine 06/26/2024 10:29 AM CVICU NURSE HEPATIC FUNCTION PANEL Routine 06/26/2024 10:29 AM CVICU NURSE LIPID PROFILE Routine 06/26/2024 10:29 AM CVICU NURSE TESTOSTERONE FREE AND TOTAL Routine 06/26/2024 10:28 AM CVICU NURSE CBC WITH PLATELETS Routine 06/26/2024 10 :28 AM CVICU NURSE EXTERNAL LAB RESULTS Routine 06/26/2024 10:28 AM CVICU NURSE LUTEINIZING HORMONE Routine 06/26/2024 1 0:28 AM CVICU NURSE HCG QUANTITATIVE Routine 06/26/2024 10:28 AM CVICU NURSE TSH Routine 06/26/2024 10:28 AM CVICU NURSE LIPID PROFILE Routine 06/26/2024 10:28 AM CVICU NURSE CREATININE Routine 06/26/2024 10:28 AM CVICU NURSE TESTOSTERONE TOTAL Routine 06/26/2024 10 :28 AM CVICU NURSE HEPATITIS C ANTIBODY Add-On 10/12/2019 10:31 PM CVICU NURSE Fever, unknown origin COLONOSCOPY Routine 09/30/2010 9:40 AM CVICU NURSE from Last 3 Months or Most Recently Relevant to Health Maintenance Results * EKG 12-lead complete w/read - Clinics (performed today) (09/25/2024) Phuc Cruz MD ECG ORDERABLES Edited Res ult - Final * External Lab Results (07/26/2024 10:18 AM CVICU NURSE) Only the most recent of4 resultswithin the time period is included. Scan Lab Results (External) See Scanned Report NON-INTERFACE D (ONBASE SCANS) Comment:Monoclonal proteins SPEP/JAQUAN 07/26/2024 10:1 8 AM CVICU NURSE Narrative NIKOLE PFT - 09/26/2024 9:59 AM CVICU NURSE Verified by Chloe Fan on 09/26/2024. us Provider Outside LABORATORY Edited Result - Final NIKOLE PFT NON-INTERFACED (ONBASE SCANS) * (ABNORMAL) Basic metabolic panel (07/26/2024 10:18 AM CVICU NURSE) Only the most recent of4 resultswithin the time period is included. Sodium (External) 135 135 - 149 mmol/l NON-INTERFACED (ONBASE SCANS) Potassium (External) 4.3 3.6 - 5.1 mmol/L NON-INTERFACED (ONBASE SCANS) Chloride (External) 98 96 - 114 mmol/L NON-INTERFACED (ONBASE SCANS) CO2 (External) 31 20 - 32 mmol/L NON-INTERFACED (ONBASE SCANS) Anion Gap (External) 6(L) 7 - 15 mEq/L NON-INTERFACED (ONBASE SCANS) Urea Nitrogen (External) 40(H) 7 - 30 mg/dl NON-INTERFACED (ONBASE SCANS) Creatinine (External) 1.5 0.5 - 1.5 mg/dl NON-INTERFACED (ONBASE SCANS) GFR Estimated (External) 48 ml/min NON-INTERFACED (ONBASE SCANS) Calcium (External) 9.8 8.4 - 10.6 mg/dl NON-INTERFACED (ONBASE SCANS) Glucose (External) 96 60 - 115 mg/dl NON-INTERFACED (ONBASE SCANS) Blood BLOOD SPECIMEN / Unknown 07/26/2024 10:18 AM CVICU NURSE Narrative BREEZE PFT - 09/26/2024 9:59 AM CVICU NURSE Verified by Chloe Fan on 09/26/2024. Provider Outside LAB - BLOOD ORDERABLES Edited DNAtriX BREEZE PFT NON-INTERFACED (ONBASE SCANS) * Ionized Calcium (07/23/2024 12:16 PM CVICU NURSE) Pathologist [facility] Calcium Ionized (External) 1.13 1.11 - 1.33 mmol/L NON-INTERFACED (ONBASE SCANS) Blood BLOOD SPECIMEN / Unknown 07/23/2024 12:16 PM CVICU NURSE Narrative BREEZE PFT - 09/26/2024 10:11 AM CVICU NURSE Verified by Nieves Arredondo on 09/26/2024. us Provider Outside LAB - BLOOD ORDERABLES Edited R Fashism - Final BREEZE PFT NON-INTERFACED (ONBASE SCANS) * (ABNORMAL) WBC and differential (07/20/2024 11:16 PM CVICU NURSE) % Neutrophils (External) 68.7 42.0 - 72.0 [...] BLOOD SPECIMEN / Unknown 07/20/2024 11:16 PM CVICU NURSE Narrative NIKOLE RAPHAEL - 09/26/2024 10:26 AM CVICU NURSE Verified by Nieves Arredondo on 09/26/2024. us Provider Outside LAB - BLOOD ORDERABLES Edited R esult - Final NIKOLE PFT NON-INTERFACED (ONBASE SCANS) * (ABNORMAL) Hepatic function panel (07/20/2024 11:16 PM CVICU NURSE) Only the most recent of2 resultswithin the time period is included. Protein Total (External) 7.1 6.0 - 8.3 [...] BLOOD SPECIMEN / Unknown 07/20/2024 11:16 PM CVICU NURSE Narrative SERENITYEZE PFT - 09/26/2024 10:56 AM CVICU NURSE Verified by Harris Mark on 09/26/2024. Provider Outside LAB - BLOOD ORDERABLES Edited DNAtriX Performing Organization Address City/[facility]/ZIP Co de Phone Number NIKOLE PFT NON-INTERFACED (ONBASE SCANS) * (ABNORMAL) CRP inflammation (07/20/2024 11:16 PM CVICU NURSE) CRP Inflammation (External) 3.2(H) 0.5 - 1.0 mg/dL NON-INTERFACE D (ONBASE SCANS) Blood BLOOD SPECIMEN / Unknown 07/20/2024 11:16 PM CVICU NURSE Narrative SERENITYEZE PFT - 09/26/2024 10:56 AM CVICU NURSE Verified by Harris Mark on 09/26/2024. us Provider Outside LAB - BLOOD ORDERABLES Edited R Fashism - Kixer NIKOLE PFT NON-INTERFACED (ONBASE SCANS) * (ABNORMAL) Creatinine (07/20/2024 11:16 PM CVICU NURSE) Only the most recent of2 resultswithin the time period is included. Creatinine (External) 2.1(H) 0.5 - 1.5 mg/dL NON-INTERFACED (ONBASE SCANS) Blood BLOOD SPECIMEN / Unknown 07/20/2024 11:16 PM CVICU NURSE Narrative BREEZE PFT - 09/26/2024 10:56 AM CVICU NURSE Verified by Harris Mark on 09/26/2024. Provider Outside LAB - BLOOD ORDERABLES Edited [facility] BREEZE PFT NON-INTERFACED (ONBASE SCANS) * CK total (07/20/2024 11:16 PM CVICU NURSE) CK (External) 153 54 - 186 U/L NON-INTERFACED (ONBASE SCANS) Blood BLOOD SPECIMEN / Unknown 07/20/2024 11:16 PM CVICU NURSE Narrative BREEZE PFT - 09/26/2024 10:56 AM CVICU NURSE Verified by Harris Mark on 09/26/2024. Provider Outside LAB - BLOOD ORDERABLES Edited DNAtriX Performing Organization Address [facility]/ZIP Co de Phone Number BREEZE PFT NON-INTERFACED (ONBASE SCANS) * Calcium (07/20/2024 11:16 PM CVICU NURSE) Calcium (External) 9.2 0.4 - 10.6 mg/dl NON-INTERFACED (ONBASE SCANS) Blood BLOOD SPECIMEN / Unknown 07/20/2024 11:16 PM CVICU NURSE Narrative BREEZE PFT - 09/26/2024 10:56 AM CVICU NURSE Verified by Harris Mark on 09/26/2024. Provider Outside LAB - BLOOD ORDERABLES Edited Fashism [facility] BREEZE PFT NON-INTERFACED (ONBASE SCANS) * Glucose (07/20/2024 11:16 PM CVICU NURSE) Glucose (External) 96 60 - 115 mg/dL NON-INTERFACED (ONBASE SCANS) Blood BLOOD SPECIMEN / Unknown 07/20/2024 11:16 PM CVICU NURSE Narrative BREEZE PFT - 09/26/2024 10:56 AM CVICU NURSE Verified by Harris Mark on 09/26/2024. Provider Outside LAB - BLOOD ORDERABLES Edited R Fashism - Final BREEZE PFT NON-INTERFACED (ONBASE SCANS) * (ABNORMAL) CBC with platelets (07/20/2024 11:16 PM CVICU NURSE) Only the most recent of2 resultswithin the time period is included. WBC Count (External) 7.88 4.50 - 11.00 [...] BLOOD SPECIMEN / Unknown 07/20/2024 11:16 PM CVICU NURSE Narrative BREEZE PFT - 09/26/2024 10:26 AM CVICU NURSE Verified by Nieves Arredondo on 09/26/2024. Provider Outside LAB - BLOOD ORDERABLES Edited R Tvinciult - Final BREEZE PFT NON-INTERFACED (ONBASE SCANS) * UA with Microscopic (07/20/2024 2:00 AM CVICU NURSE) Color Urine (External) Yellow Yellow NON-INTERFAC ED (ONBASE SCANS) Appearance Urine (External) Clear Clear NON-INTERFAC ED (ONBASE SCANS) Glucose Urine (External) Negative Negative NON-INTERFAC ED (ONBASE SCANS) Bilirubin Urine (External) Negative Negative NON-INTERFAC ED (ONBASE SCANS) Specific [place] Urine (External) 1.010 1.000 - 1.030 NON-INTERFAC [...] ED (ONBASE SCANS) Urine 07/20/2024 2:00 AM CVICU NURSE Narrative NIKOLE PFT - 07/20/2024 2:00 AM CVICU NURSE Verified by Nieves Arredondo on 09/26/2024. Verified by Feliberto Rankin on 09/26/2024. us Provider Outside LAB - URINE ORDERABLES Edited R esult - Final NIKOLE RAPHAEL NON-INTERFACED (ONBASE SCANS) * Lipid Profile (06/26/2024 10:29 AM CVICU NURSE) Only the most recent of2 resultswithin the time period is included. Triglycerides (External) 80 40 - 149 mg/dL NON-INTERFACE D (ONBASE SCANS) Blood BLOOD SPECIMEN / Unknown 06/26/2024 10:29 AM CVICU NURSE Narrative BREEZE PFT - 09/26/2024 10:49 AM CVICU NURSE Verified by Nieves Arredondo on 09/26/2024. Provider Outside LAB - BLOOD ORDERABLES Edited R [facility] Performing Organization Address City/[facility]/ZIP Co de Phone Number BREEZE PFT NON-INTERFACED (ONBASE SCANS) * Testosterone Free and Total (06/26/2024 10:28 AM CVICU NURSE) Testosterone Free (External) 1.7 1.6 - 2.9 % NON-INTERFACE D (ONBASE SCANS) Blood 06/26/2024 10:2 8 AM CVICU NURSE Narrative BREEZE PFT - 09/26/2024 10:49 AM CVICU NURSE Verified by Nieves Arredondo on 09/26/2024. Provider Outside LAB - BLOOD ORDERABLES Edited [employer] Performing Organization Address [facility] Co de Phone Number BREEZE PFT NON-INTERFACED (ONBASE SCANS) * TSH (06/26/2024 10:28 AM CVICU NURSE) Pathologist [facility] TSH (External) 2.720 0.270 - 4.200 uIU/mL NON-INTERFACED (ONBASE SCANS) Blood BLOOD SPECIMEN / Unknown 06/26/2024 10:28 AM CVICU NURSE Narrative BREEZE PFT - 09/26/2024 10:26 AM CVICU NURSE Verified by Nieves Arredondo on 09/26/2024. Provider Outside LAB - BLOOD ORDERABLES Edited [facility] Performing Organization Address [facility] Co de Phone Number BREEZE PFT NON-INTERFACED (ONBASE SCANS) * (ABNORMAL) Testosterone total (06/26/2024 10:28 AM CVICU NURSE) Testosterone Total (External) 253(L) 300 - 720 ng/dL NON-INTERFACE D (ONBASE SCANS) Blood BLOOD SPECIMEN / Unknown 06/26/2024 10:28 AM CVICU NURSE Narrative BREEZE PFT - 09/26/2024 10:26 AM CVICU NURSE Verified by Nieves Arredondo on 09/26/2024. Provider Outside LAB - BLOOD ORDERABLES Edited [facility] Performing Organization Address City/[facility]/ZIP Co de Phone Number BREEZE PFT NON-INTERFACED (ONBASE SCANS) * (ABNORMAL) Luteinizing Hormone (06/26/2024 10:28 AM CVICU NURSE) Lutropin (External) 37.4(H) 1.7 - 8.6 IU/L NON-INTERFACED (ONBASE SCANS) Blood BLOOD SPECIMEN / Unknown 06/26/2024 10:28 AM CVICU NURSE Narrative BREEZE PFT - 09/26/2024 10:49 AM CVICU NURSE Verified by Nieves Arredondo on 09/26/2024. Provider Outside LAB - BLOOD ORDERABLES Edited [facility] Performing Organization Address [facility] Co de Phone Number BREEZE PFT NON-INTERFACED (ONBASE SCANS) * hCG Quantitative (06/26/2024 10:28 AM CVICU NURSE) Pathologist [facility] hCG Quantitative 1 0 - 3 IU/L NO N-INTERFACE D (ONBASE SCANS) Blood BLOOD SPECIMEN / Unknown 06/26/2024 10:28 AM CVICU NURSE Narrative BREEZE PFT - 09/26/2024 10:49 AM CVICU NURSE Verified by Nieves Arredondo on 09/26/2024. Provider Outside LAB - BLOOD ORDERABLES Edited [facility] Performing Organization Address [facility] Co de Phone Number BREEZE PFT NON-INTERFACED (ONBASE SCANS) * Hepatitis C antibody (10/12/2019 10:31 PM CVICU NURSE) Hepatitis C Antibody Nonreactive NR^Nonre active 10/15/2019 12:00 PM CVICU NURSE [facility] Comment: Assay performance characteristics have not been established for newborns, infants, and children Blood specimen (specimen) 10/12/2019 10:31 PM CVICU NURSE 10/12/2019 10:32 PM CVICU NURSE us Timi Vail MD LAB - BLOOD ORDERABLES Final Result [facility] [address] [place] [address] * COLONOSCOPY (09/30/2010 9:40 AM CVICU NURSE) COLONOSCOPY [facility] Patient Name: Kar Aguilar Procedure Date: 09/30/2010 9:40 AM Date of : 1950 Admit Type: Outpatient Age: 59 Gender: Male Attending MD: Jim Chou MD Procedure: Colonoscopy Indications: Personal history of colonic polyps Providers: Jim Chou MD Referring MD: Andrew Erickson MD Medicines: Fentanyl 100 micrograms IV, Midazolam 2 mg IV, Atropine 0.6 mg IV Complications: No immediate complications Procedure: Pre-Anesthesia Assessment: - Prior to the procedure, a History and Physical was performed, and patient medications and allergies were reviewed. The patient is competent. The risks and benefits of the procedure and the sedation options and risks were discussed with the patient. All questions were answered and informed consent was obtained. Patient identification and proposed procedure were verified by the physician in the procedure room. Mental Status Examination: alert and oriented. Airway Examination: normal oropharyngeal airway and neck mobility. Respiratory Examination: clear to auscultation. CV Examination: normal. ASA Grade Assessment: II - A patient with mild systemic disease. After reviewing the risks and benefits, the patient was deemed in satisfactory condition to undergo the procedure. The anesthesia plan was to use moderate sedation / analgesia (conscious sedation). Immediately prior to administration of medications, the patient was re-assessed for adequacy to receive sedatives. The heart rate, respiratory rate, oxygen saturations, blood pressure, adequacy of pulmonary ventilation, and response to care were monitored throughout the procedure. The physical status of the patient was re-assessed after the procedure. After obtaining informed consent, the colonoscope was passed under direct vision. Throughout the procedure, the patient's blood pressure, pulse, and oxygen saturations were monitored continuously. The Colonoscope was introduced through the anus and advanced to the cecum, identified by appendiceal orifice & ileocecal valve. The colonoscopy was performed without difficulty. The patient tolerated the procedure well. The quality of the bowel preparation was good. Findings: The digital rectal exam was normal. A sessile polyp was found in the cecum. The polyp was 3 mm in size. The polyp was removed with a hot snare. Resection and retrieval were complete. A pedunculated polyp was found in the ascending colon. The polyp was 6 mm in size. The polyp was removed with a hot snare. Resection and retrieval were complete. A sessile polyp was found at the splenic flexure. The polyp was 4 mm in size. This was biopsied with a hot forceps for histology. A benign appearing sessile polyp was found in the rectum. The polyp was 3 mm in size. This was biopsied with a hot forceps for histology. The sigmoid colon, descending colon, transverse colon, hepatic flexure, appendiceal orifice and ileocecal valve appeared normal. The retroflexed view of the anal verge was normal and showed no anal or rectal abnormalities. Impression: - One 3 mm polyp in the cecum. Resected and retrieved. - One 6 mm polyp in the ascending colon. Resected and retrieved. - One 4 mm polyp in the splenic flexure. Tissue was removed. This was biopsied. - One 3 mm polyp in the rectum (benign appearing). Tissue was removed. This was biopsied. - The sigmoid colon, descending colon, transverse colon, hepatic flexure, appendiceal orifice and ileocecal valve are normal. Recommendation: - Discharge patient to home (ambulatory). - Telephone endoscopist for pathology results in 1 week. - If polyps are adenomatous repeat colonoscopy in 3 years. If polyps are hyperplastic repeat colonoscopy in 4 years. If 3 or more are adenoma then recolonoscopy in 1 yr. - Return to primary care physician PRN. Libra Chou M.D Jim Chou MD Signed Date: 09/30/2010 10:22 AM Number of Addenda: 0 I was physically present for the entire viewing portion of the exam. Note initiated on 09/30/2010 9:40 AM RADIOLOGY RESULTS 09/30/2010 9:40 AM CVICU NURSE Andrew Erickson MD PROCEDURES Final Result RADIOLOGY RESULTS from Last 3 Months or Most Recently Relevant to Health Maintenance Insurance MEDICARE [facility] MEDICARE SUPPLEMENT MEDICARE [facility] [place] MEDICARE [facility] MEDICARE [place]ARE [place] * Guarantor: Kar Aguilar Account Type Relation to Patient Date of Phone Billing Address Medication Therapy Self 1950 [id number] [place] [address] MEDICARE [place] Advance Directives For more information, please contact: [phone] * Full Code (Latest Code Status on File) Date Activated Date Inactivated Comments 03/03/2022 11:35 AM 03/04/2022 1:19 PM All basic a nd advanced life-sustaining interventions are performed as appropriate Question Answer Comments Code status determined by: Unable to dis cuss and no AD/POLST on file; continue PREVIOUSLY ORDERED code status * Full Code Date Activated Date Inactivated Comments 08/26/2020 3:11 AM 08/30/2020 1:47 PM All basic and advanced life-sustaining interventions are performed as appropriate Question Answer Comments Code status determined by: Discussion with patie nt/ legal decision maker * Full Code Date Activated Date Inactivated Comments 05/09/2020 4:20 PM 08/25/2020 7:18 PM Facility EMR Question Answer Comments Code status determined by: Other (please izzy gleason) * Full Code Date Activated Date Inactivated Comments 05/02/2020 5:27 PM 05/06/2020 2:49 PM All basic an d advanced life-sustaining interventions are performed as appropriate Question Answer Comments Code status determined by: Discussion with patie nt/ legal decision maker * Full Code Date Activated Date Inactivated Comments 05/02/2020 1:11 PM 05/02/2020 5:27 PM Question Answer Comments Code status determined by: Discussion with patie nt/ legal decision maker Care Teams Manager Of Applications Development Relationship Specialty Start Date End Date Andrew Erickson MD PCP - General Family Practice 11/12/17 Sandoval Boggs MD [address] [place] [id number] Clinical Neurophysiology 11/03/18 Jordan Erickson MD [address] [address] 11/03/18 Essence Wise, [facility] [address] [place] [phone] Pharmacist Pharmacist 06/01/21 Heidy Harrell DO [address] [place] [address] [phone] Neurology 09/28/21 Heidy Harrell DO [address] [place], [place] [id number] Assigned Neuroscience Provider 04/17/22 Essence Wise, [facility] [address] [place] [address] [phone] Assigned [place] Pharmacist 10/14/23 Pablito Paulson MD [address] [place] [address] [phone] Assigned Pulmonology Provider 03/13/24 Phuc Cruz MD [address] [place] [address] Cardiovascular Disease 09/20/24
--- OUTSIDE RECORDS SUMMARY | 2024-09-26 12:17 | XMS_ITS | Clinical Summary ---
Author Organization [facility] Address [address] [place] [address] Care Team Providers Care Child Therapist Name Role Phone Andrew Erickson MD Primary Care Provider [phone] Sandoval Boggs MD Unavailable [phone] Jordan Erickson MD Unavailable [phone] Essence Wise [facility] Unavailable [phone] Heidy Harrell DO Unavailable Heidy Harrell DO Unavailable Essence Wise [facility] Unavailable Pablito Paulson MD Unavailable Phuc Cruz MD Unavailable [phone] Allergies Active Allergy Reactions Criticality Noted Date Comments Amylase Rash Low 02/07/2020 Cascara Unknown 02/07/2020 Pancrelipase (Fye-Pofw-Qqfo) Rash Low 020 Nsaids GI Disturbance 02/07/2020 [...] 1 tablet by mouth daily 3 Active [place]-3 Fatty Acids (FISH OIL) 1200 MG capsule Take 1,200 mg by mouth daily Active DULoxetine (CYMBALTA) 60 MG capsule Take 60 mg by mouth every morning Active clonazePAM (KLONOPIN) 1 MG tabletIndication s:S/P lumbar fusion Take 1 tablet (1 mg) by mouth At Bedtime 30 tablet 5 1 Active xldypid-cmwxym-v rotease (CREON 24) 06174-35694 units CPEP per EC capsule Take 1 [...] 58 (04/25/2012) Creatinine 1.3 GFR 54 (09/27/2012). Encounters Date Type Department Care Team Description 09/26/2024 External Order Results [facility]ly [facility] [address] [place] [address] Outside, Provider 09/25/2024 9:00 AM PARKING ASSISTANT Office Visit [facility] [address] [place] [address] Phuc Cruz MD Orthostatic hypotension (Primary Dx); Screening for cardiovascular condition; Parkinson's disease, unspecified whether dyskinesia present, unspecified whether manifestations fluctuate (H); Hyperlipidemia, unspecified hyperlipidemia type; Primary hypertension 09/25/[address] [facility] [address] [place] [phone] Vanesa Cooper RN Labs Only 09/25/2024 Travel 09/24/[address] [facility] [place] [address] [facility] [address] [place] [address] Lary Schmitz APRN MINE MANAGER Referral (Labs ) 09/19/2024 9:40 AM PARKING ASSISTANT Office Visit [facility] [address] [place] [address] Lary Schmitz, EVERETTE MINE MANAGER Parkinson's disease without dyskinesia or fluctuating manifestations (H) (Primary Dx); Orthostatic hypotension; Falls frequently; Memory problem; Peripheral polyneuropathy; Fatigue, unspecified type 09/19/2024 Travel 07/26/2024 External Order Results [facility] [address] [place] [address] Outside, Provider 07/23/2024 External Order Results [facility] [address] [place] [address] Outside, Provider 07/20/2024 External Order Results [facility] [address] [place] [address] Outside, Provider from Last 3 Months Family History Relation Status Comments Father Mother Social History Tobacco Use Types Packs/Day Years [...] AM CDT Legal Sex Male 3:26 AM PARKING ASSISTANT Gender Identity Male 04/09/2020 8:36 AM CDT Sexual Orientation Straight 04/09/2020 8: 36 AM CDT Last Filed Vital Signs Vital Sign Reading Time Taken Comments Blood Pressure 103/64 09/25/2024 9:11 AM PARKING ASSISTANT Pulse 76 09/25/2024 9:11 AM PARKING ASSISTANT Temperature 36.4 C (97.5 F) 03/04/2022 7:50 AM CDT Respiratory Rate 16 03/04/2022 7:50 AM CDT Oxygen Saturation 96% 02/21/2024 9:00 AM CDT Inhaled Oxygen Concentration - - Weight 97.1 kg (214 lb) 09/25/2024 9:11 AM PARKING ASSISTANT Height 190.5 cm (6' 3) 09/25/2024 9:11 AM PARKING ASSISTANT Body Mass Index 26.75 09/25/2024 9:11 AM PARKING ASSISTANT Plan of Treatment Upcoming Encounters Date Type Department Care Team (Late st Contact Info) Description 10/31/2024 7:[address] [facility] [address] [place] [phone] Phuc Cruz MD [address] [place] [address] 11/06/2024 9:00 AM CDT Office [facility] [address] [place] [phone] Phuc Cruz MD [address] [place] [address] 01/16/2025 12:45 PM CDT Office Visit [facility] [address] [place] [address] Lary Schmitz H, WOMEN'S ACTIVITIES ADVISER MINE MANAGER [address] [facility], [place] [address] Health Maintenance Due Date Last Done Comments ADVANCE CARE PLANNING 1948 ANNUAL REVIEW OF HM ORDERS 1948 ASTHMA ACTION PLAN 1948 ASTHMA CONTROL TEST [address] CT COLONOGRAPHY 1948 FIT 1948 FLEX SIG 1948 URIC ACID 1948 sDNA (Cologuard) 1950 MEDICARE ANNUAL WELLNESS VISIT 2013 ZOSTER IMMUNIZATION (2 of 3) 08/21/2014 06/26/2014 Pneumococcal Vaccine: 50+ Years (3 of 3 - PCV20 or PCV21) 03/19/2020 03/19/2015, 03/18/2015, 09/27/2012, Additional history exists COLONOSCOPY 09/30/2020 09/30/2010, 12/16/2004 COLORECTAL CANCER SCREENING 09/30/2020 FALL RISK ASSESSMENT 05/13/2023 05/13/2022, 11/15/19 19 RSV VACCINE (1 - 1-dose 75+ series) 11/27/2023 COVID-19 Vaccine ( season) 2024 08/18/2022, 08/09/2021, 11/18/2020, Additional history exists INFLUENZA VACCINE (#1) 2024 , 08/09/2022, 06/16/2021, Additional history exists PHQ-2 (once per calendar year) 2024 09/02/2023, 03/24/2023, 11/04/2022, Additional history exists LIPID 06/26/2025 06/26/2024, 110 12/2023, 05/01/2007, Additional history exists BMP 07/26/2025 07/26/2024, 120 09/2023, 07/20/2024, Additional history exists GLUCOSE 07/20/2027 07/20/2024, 2 12/2022, 03/04/2022, Additional history exists DTAP/TDAP/TD IMMUNIZATION (3 - Td or Tdap) 08/09/2032 08/09/2022, 04/25/2012, 09/20/2000 AORTIC ANEURYSM SCREENING (SYSTEM ASSIGNED) Completed 03/06/2013 HEPATITIS C SCREENING Completed 10/12/2019, 020 HPV IMMUNIZATION Aged Out No longer e ligible based on patient's age to complete this topic MENINGITIS IMMUNIZATION Aged Out No l onger eligible based on patient's age to complete this topic Medical Devices Implanted Type Area Network Systems Consultant Device Identifier Shelf Expiration Date Model / Serial / Lot Bone Cement Radiopaque Simplex P Speedset 6192-1-001 Implanted:Qty : 1 on 02/13/2020 by Skip Carias MD at [facility] Cement, Bone Right: Shoulder [employer] 01/19/2021 6192-1-001 / / [id number] Creo 5.5, 7.5x50mm Fung Coated Screws Implanted:Qty : 4 on 05/02/2020 by Chester Venegas MD at [facility] Metallic Hardware/A nchor N/A: Spine Lumbar [employer] 11/25/2026 5119.1751S / / [id number] Creo 5.5, 7.5x45mm Fung Coated Screws Implanted:Qty : 1 on 05/02/2020 by Chester Venegas MD at [facility] Metallic Hardware/A nchor N/A: Spine Lumbar [employer] 07/16/2024 5119.1746S / / [id number] Creo 5.5, 7.5x45mm Fung Coated Screws Implanted:Qty : 1 on 05/02/2020 by Chester Venegas MD at [facility] Metallic Hardware/A nchor N/A: Spine Lumbar [employer] 10/10/2024 5119.1746S / / [id number] Creo 5.5, 7.5x50mm Fung Coated Screws Implanted:Qty : 2 on 05/02/2020 by Chester Venegas MD at [facility] Metallic Hardware/A nchor N/A: Spine Lumbar [employer] 12/19/2026 5119.1751S / / [id number] Creo Locking Cap Implanted:Qty : 10 on 05/02/2020 by Chester Venegas MD at [facility] Metallic Hardware/A nchor N/A: Spine Lumbar [employer] 1119.0000 / / [id number] 10SEP 2019 Rise Spacer [id number], 7-14mm Implanted:Qty : 1 on 05/02/2020 by Chester Venegas MD at [facility] Metallic Hardware/A nchor N/A: Spine Lumbar [employer] 193.203 / / 8008 10SEP 2019 Rise Spacer [id number], 8-15mm, 10deg Implanted:Qty : 1 on 05/02/2020 by Chester Venegas MD at [facility] Metallic Hardware/A nchor N/A: Spine Lumbar [employer] 193.223 / / [id number] 10SEP 2019 Caliber Spacer 12-26mm, 7mm, 0-10deg Implanted:Qty : 2 on 05/02/2020 by Chester Venegas MD at [facility] Metallic Hardware/A nchor N/A: Spine Lumbar [employer] 594.273 / / 8008 SEP 2019 5.5mm Curved [place] Chrome, 125mm Implanted:Qty : 2 on 05/02/2020 by Chester Venegas MD at [facility] Metallic Hardware/A nchor N/A: Spine Lumbar [employer] 7119.7125 / / 8008 SEP 2019 Imp Kit Syndemosis Arthrex Tightrope Knotless Ss [id number] Implanted:Qty : 2 on 09/24/2020 by Skip Carias MD at [facility] Metallic Hardware/A nchor Right: Ankle [employer] 05/21/2024 AR-[id number] / / [id number] Imp Scr Arthrex Lp Can 4.0x50mm Long Thrd Ss [id number] Implanted:Qty : 1 on 09/24/2020 by Skip Carias MD at [facility] Metallic Hardware/A nchor Right: Ankle [employer] AR-8840CL-5 0 / / IMP 4MM CANNULATED LONG THREAD 48MM Screw Bsplt 35mm 6.5mm Aqls Prfrm Glnd Rvrs Cntr Ns Dht532 - [id number] Implanted:Qty : 1 on 03/03/2022 by Skip Carias MD at [facility] Metallic Hardware/A nchor Left: Shoulder [employer] [id number] / / [id number] 02 MAR 2022 Screw Peripheral 5.0x34mm Xjt157 - [id number] Implanted:Qty : 1 on 03/03/2022 by Skip Carias MD at [facility] Metallic Hardware/A nchor Left: Shoulder [employer] [id number] / / [id number] 02 MAR 2022 Screw Peripheral 38mm - [id number] Implanted:Qty : 1 on 03/03/2022 by Skip Carias MD at [facility] Metallic Hardware/A nchor Left: Shoulder [employer] HDY680 / / [id number] 02 MAR 2022 Baseplate Lateral Rvrs 29mm Offs 15d Wedge Augment Vbf021 - [id number] Implanted:Qty : 1 on 03/03/2022 by Skip Carias MD at [facility] Total Joint Component/ Insert Left: Shoulder [employer] 01/01/2027 [id number] / [id number] / Gleosphere Lateralized Standard 42mm Say547 - [id number] Implanted:Qty : 1 on 03/03/2022 by Skip Carias MD at [facility] Total Joint Component/ Insert Left: Shoulder [employer] 05/20/2026 [id number] / [id number] / Insert Hum Revision Reverse +6 42mm 12.5d [id number] - [id number] Implanted:Qty : 1 on 03/03/2022 by Skip Carias MD at [facility] Total Joint Component/ Insert Left: Shoulder [employer] 12/17/2025 [id number] / [id number] / Tray Reverse Low Offset +0 Lvs013 - [id number] Implanted:Qty : 1 on 03/03/2022 by Skip Carias MD at [facility] Total Joint Component/ Insert Left: Shoulder [employer] 10/07/2026 [id number] / [id number] / Stem Humeral Anatomic Std Ptc 7b - [id number] Implanted:Qty : 1 on 03/03/2022 by Skip Carias MD at [facility] Total Joint Component/ Insert Left: Shoulder [employer] 06/01/2026 [id number] / [id number] / Cortiloc Glenoid Augment Large Right 15 Degree Implanted:Qty : 1 on 02/13/2020 by Skip Carias MD at [facility] Right: Shoulder TORNIER 11/29/2024 [id number] / [id number] / Standard Ptc Humeral Stem Size 6b 132.5 Degree Length 86 Mm Implanted:Qty : 1 on 02/13/2020 by Skip Carias MD at [facility] Right: Shoulder TORNIER 07/04/2024 [id number] / [id number] / Stb Humeral Head 51 Mm X 20 Mm Implanted:Qty : 1 on 02/13/2020 by Skip Carias MD at [facility] Right: Shoulder TORNIER 05/26/2022 [id number] / [id number] / Creo 5.5, 7.5x40mm Fung Coated Screw Implanted:Qty : 1 on 05/02/2020 by Chester Venegas MD at [facility] N/A: Spine Lumbar [employer] 06/25/2024 5119.1741S / / [id number] Creo 5.5, 7.5x40mm Fung Coated Screw Implanted:Qty : 1 on 05/02/2020 by Chester Venegas MD at [facility] N/A: Spine Lumbar [employer] 09/13/2024 5119.1741S / / [id number] Graft Bone Infuse Bmp Lg [id number] Implanted:Qty : 1 on 05/02/2020 by Chester Venegas MD at [facility] N/A: Spine Lumbar [employer] 12/20/2020 [id number] / / [id number] Stainless Steel 2-Hole Buttress Plate Implanted:Qty : 1 on 09/24/2020 by Skip Carias MD at [facility] Right: Ankle [id number] AR-8958-01 / / [id number] 21 Imp 4mm Cannulated Long Thread 48mm Implanted:Qty : 1 on 09/24/2020 by Skip Carias MD at [facility] Right: Ankle ARTHREX AR-8840CL-4 4 [id number] Procedures Procedure Name Priority Date/Time Associated Diagnosis Comments EKG 12-LEAD COMPLETE W/READ - CLINICS Routine 09/25/2024 Screening for cardiovascular condition BASIC METABOLIC PANEL Routine 07/26/2024 10:18 AM PARKING ASSISTANT EXTERNAL LAB RESULTS Routine 07/26/2024 10:18 AM PARKING ASSISTANT IONIZED CALCIUM Routine 07/23/2024 12:16 PM PARKING ASSISTANT BASIC METABOLIC PANEL Routine 07/23/2024 12:16 PM PARKING ASSISTANT WBC AND DIFFERENTIAL Routine 07/20/2024 11:16 PM PARKING ASSISTANT BASIC METABOLIC PANEL Routine 07/20/2024 11:16 PM PARKING ASSISTANT CREATININE Routine 07/20/2024 11:16 PM PARKING ASSISTANT CALCIUM Routine 07/20/2024 11:16 PM PARKING ASSISTANT GLUCOSE Routine 07/20/2024 11:16 PM PARKING ASSISTANT HEPATIC FUNCTION PANEL Routine 07/20/2024 11:16 PM PARKING ASSISTANT CK TOTAL Routine 07/20/2024 11:16 PM PARKING ASSISTANT CRP INFLAMMATION Routine 07/20/2024 11:1 6 PM PARKING ASSISTANT EXTERNAL LAB RESULTS Routine 07/20/2024 11:16 PM PARKING ASSISTANT CBC WITH PLATELETS Routine 07/20/2024 11 :16 PM PARKING ASSISTANT EXTERNAL LAB RESULTS Routine 07/20/2024 2:00 AM PARKING ASSISTANT ROUTINE UA WITH MICROSCOPIC Routine 07/20/2024 2:00 AM PARKING ASSISTANT BASIC METABOLIC PANEL Routine 06/26/2024 10:29 AM PARKING ASSISTANT HEPATIC FUNCTION PANEL Routine 06/26/2024 10:29 AM PARKING ASSISTANT LIPID PROFILE Routine 06/26/2024 10:29 AM PARKING ASSISTANT TESTOSTERONE FREE AND TOTAL Routine 06/26/2024 10:28 AM PARKING ASSISTANT CBC WITH PLATELETS Routine 06/26/2024 10 :28 AM PARKING ASSISTANT EXTERNAL LAB RESULTS Routine 06/26/2024 10:28 AM PARKING ASSISTANT LUTEINIZING HORMONE Routine 06/26/2024 1 0:28 AM PARKING ASSISTANT HCG QUANTITATIVE Routine 06/26/2024 10:28 AM PARKING ASSISTANT TSH Routine 06/26/2024 10:28 AM PARKING ASSISTANT LIPID PROFILE Routine 06/26/2024 10:28 AM PARKING ASSISTANT CREATININE Routine 06/26/2024 10:28 AM PARKING ASSISTANT TESTOSTERONE TOTAL Routine 06/26/2024 10 :28 AM PARKING ASSISTANT HEPATITIS C ANTIBODY Add-On 10/12/2019 10:31 PM PARKING ASSISTANT Fever, unknown origin COLONOSCOPY Routine 09/30/2010 9:40 AM PARKING ASSISTANT from Last 3 Months or Most Recently Relevant to Health Maintenance Results * EKG 12-lead complete w/read - Clinics (performed today) (09/25/2024) Phuc Cruz MD ECG ORDERABLES Edited Res ult - Final * External Lab Results (07/26/2024 10:18 AM PARKING ASSISTANT) Only the most recent of4 resultswithin the time period is included. Scan Lab Results (External) See Scanned Report NON-INTERFACE D (ONBASE SCANS) Comment:Monoclonal proteins SPEP/JAQUAN 07/26/2024 10:1 8 AM PARKING ASSISTANT Narrative BREEZE PFT - 09/26/2024 9:59 AM PARKING ASSISTANT Verified by Chloe Fan on 09/26/2024. us Provider Outside LABORATORY Edited Result - Final BREBRODY PFT NON-INTERFACED (ONBASE SCANS) * (ABNORMAL) Basic metabolic panel (07/26/2024 10:18 AM PARKING ASSISTANT) Only the most recent of4 resultswithin the [...] BLOOD SPECIMEN / Unknown 07/26/2024 10:18 AM PARKING ASSISTANT Narrative BREEZE PFT - 09/26/2024 9:59 AM PARKING ASSISTANT Verified by Chloe Fan on 09/26/2024. Provider Outside LAB - BLOOD ORDERABLES Edited IdeaString Performing Organization Address [facility] Co de Phone Number [facility] NON-INTERFACED (ONBASE SCANS) * Ionized Calcium (07/23/2024 12:16 PM PARKING ASSISTANT) Pathologist [facility] Calcium Ionized (External) 1.13 1.11 - 1.33 mmol/L NON-INTERFACED (ONBASE SCANS) Blood BLOOD SPECIMEN / Unknown 07/23/2024 12:16 PM PARKING ASSISTANT Narrative BREEZE PFT - 09/26/2024 10:11 AM PARKING ASSISTANT Verified by Nieves Arredondo on 09/26/2024. Provider Outside LAB - BLOOD ORDERABLES Edited IdeaString NIKOLE PFT NON-INTERFACED (ONBASE SCANS) * (ABNORMAL) WBC and differential (07/20/2024 11:16 PM PARKING ASSISTANT) % Neutrophils (External) 68.7 42.0 - 72.0 [...] BLOOD SPECIMEN / Unknown 07/20/2024 11:16 PM PARKING ASSISTANT Narrative NIKOLE PFT - 09/26/2024 10:26 AM PARKING ASSISTANT Verified by Nieves Arredondo on 09/26/2024. us Provider Outside LAB - BLOOD ORDERABLES Edited R esult - Final NIKOLE PFT NON-INTERFACED (ONBASE SCANS) * (ABNORMAL) Hepatic function panel (07/20/2024 11:16 PM PARKING ASSISTANT) Only the most recent of2 resultswithin the [...] BLOOD SPECIMEN / Unknown 07/20/2024 11:16 PM PARKING ASSISTANT Narrative BREEZE PFT - 09/26/2024 10:56 AM PARKING ASSISTANT Verified by Harris Mark on 09/26/2024. Provider Outside LAB - BLOOD ORDERABLES Edited R popchips BREEZE PFT NON-INTERFACED (ONBASE SCANS) * (ABNORMAL) CRP inflammation (07/20/2024 11:16 PM PARKING ASSISTANT) Pathologist [facility] CRP Inflammation (External) 3.2(H) 0.5 - 1.0 mg/dL NON-INTERFACE D (ONBASE SCANS) Blood BLOOD SPECIMEN / Unknown 07/20/2024 11:16 PM PARKING ASSISTANT Narrative BREEZE PFT - 09/26/2024 10:56 AM PARKING ASSISTANT Verified by Harris Mark on 09/26/2024. us Provider Outside LAB - BLOOD ORDERABLES Edited R VideoMiningult - Final BREEZE PFT NON-INTERFACED (ONBASE SCANS) * (ABNORMAL) Creatinine (07/20/2024 11:16 PM PARKING ASSISTANT) Only the most recent of2 resultswithin the time period is included. Creatinine (External) 2.1(H) 0.5 - 1.5 mg/dL NON-INTERFACED (ONBASE SCANS) Blood BLOOD SPECIMEN / Unknown 07/20/2024 11:16 PM PARKING ASSISTANT Narrative BREEZE PFT - 09/26/2024 10:56 AM PARKING ASSISTANT Verified by Harris Mark on 09/26/2024. Provider Outside LAB - BLOOD ORDERABLES Edited R popchips BREEZE PFT NON-INTERFACED (ONBASE SCANS) * CK total (07/20/2024 11:16 PM PARKING ASSISTANT) CK (External) 153 54 - 186 U/L NON-INTERFACED (ONBASE SCANS) Blood BLOOD SPECIMEN / Unknown 07/20/2024 11:16 PM PARKING ASSISTANT Narrative BREEZE PFT - 09/26/2024 10:56 AM PARKING ASSISTANT Verified by Harris Mark on 09/26/2024. Provider Outside LAB - BLOOD ORDERABLES Edited IdeaString BREEZE PFT NON-INTERFACED (ONBASE SCANS) * Calcium (07/20/2024 11:16 PM PARKING ASSISTANT) Calcium (External) 9.2 0.4 - 10.6 mg/dl NON-INTERFACED (ONBASE SCANS) Blood BLOOD SPECIMEN / Unknown 07/20/2024 11:16 PM PARKING ASSISTANT Narrative BREEZE PFT - 09/26/2024 10:56 AM PARKING ASSISTANT Verified by Harris Mark on 09/26/2024. Provider Outside LAB - BLOOD ORDERABLES Edited IdeaString BREEZE PFT NON-INTERFACED (ONBASE SCANS) * Glucose (07/20/2024 11:16 PM PARKING ASSISTANT) Glucose (External) 96 60 - 115 mg/dL NON-INTERFACED (ONBASE SCANS) Blood BLOOD SPECIMEN / Unknown 07/20/2024 11:16 PM PARKING ASSISTANT Narrative NIKOLE PFT - 09/26/2024 10:56 AM PARKING ASSISTANT Verified by Harris Mark on 09/26/2024. us Provider Outside LAB - BLOOD ORDERABLES Edited R esult - Final NIKOLE LIM NON-INTERFACED (ONBASE SCANS) * (ABNORMAL) CBC with platelets (07/20/2024 11:16 PM PARKING ASSISTANT) Only the most recent of2 resultswithin the [...] BLOOD SPECIMEN / Unknown 07/20/2024 11:16 PM PARKING ASSISTANT Narrative NIKOLE PFT - 09/26/2024 10:26 AM PARKING ASSISTANT Verified by Nieves Arredondo on 09/26/2024. Provider Outside LAB - BLOOD ORDERABLES Edited R VideoMiningult - Final NIKOLE PFT NON-INTERFACED (ONBASE SCANS) * UA with Microscopic (07/20/2024 2:00 AM PARKING ASSISTANT) Color Urine (External) Yellow Yellow NON-INTERFAC ED (ONBASE SCANS) Appearance Urine (External) Clear Clear NON-INTERFAC ED (ONBASE SCANS) Glucose Urine (External) Negative Negative NON-INTERFAC ED (ONBASE SCANS) Bilirubin Urine (External) Negative Negative NON-INTERFAC ED (ONBASE SCANS) Specific [place] Urine (External) 1.010 1.000 - 1.030 NON-INTERFAC [...] ED (ONBASE SCANS) Urine 07/20/2024 2:00 AM PARKING ASSISTANT Narrative BREEZE PFT - 07/20/2024 2:00 AM PARKING ASSISTANT Verified by Nieves Arreodndo on 09/26/2024. Verified by Feliberto Rankin on 09/26/2024. Provider Outside LAB - URINE ORDERABLES Edited R VideoMiningult - Final NIKOLE PFT NON-INTERFACED (ONBASE SCANS) * Lipid Profile (06/26/2024 10:29 AM PARKING ASSISTANT) Only the most recent of2 resultswithin the time period is included. Triglycerides (External) 80 40 - 149 mg/dL NON-INTERFACE D (ONBASE SCANS) Blood BLOOD SPECIMEN / Unknown 06/26/2024 10:29 AM PARKING ASSISTANT Narrative BREEZE PFT - 09/26/2024 10:49 AM PARKING ASSISTANT Verified by Nieves Arredondo on 09/26/2024. Provider Outside LAB - BLOOD ORDERABLES Edited IdeaString BREEZE PFT NON-INTERFACED (ONBASE SCANS) * Testosterone Free and Total (06/26/2024 10:28 AM PARKING ASSISTANT) Pathologist [facility] Testosterone Free (External) 1.7 1.6 - 2.9 % NON-INTERFACE D (ONBASE SCANS) Blood 06/26/2024 10:2 8 AM PARKING ASSISTANT Narrative BREEZE PFT - 09/26/2024 10:49 AM PARKING ASSISTANT Verified by Nieves Arredondo on 09/26/2024. Provider Outside LAB - BLOOD ORDERABLES Edited IdeaString BREEZE PFT NON-INTERFACED (ONBASE SCANS) * TSH (06/26/2024 10:28 AM PARKING ASSISTANT) Pathologist [facility] TSH (External) 2.720 0.270 - 4.200 uIU/mL NON-INTERFACED (ONBASE SCANS) Blood BLOOD SPECIMEN / Unknown 06/26/2024 10:28 AM PARKING ASSISTANT Narrative BREEZE PFT - 09/26/2024 10:26 AM PARKING ASSISTANT Verified by Nieves Arredondo on 09/26/2024. Provider Outside LAB - BLOOD ORDERABLES Edited IdeaString BREEZE PFT NON-INTERFACED (ONBASE SCANS) * (ABNORMAL) Testosterone total (06/26/2024 10:28 AM PARKING ASSISTANT) Testosterone Total (External) 253(L) 300 - 720 ng/dL NON-INTERFACE D (ONBASE SCANS) Blood BLOOD SPECIMEN / Unknown 06/26/2024 10:28 AM PARKING ASSISTANT Narrative BREEZE PFT - 09/26/2024 10:26 AM PARKING ASSISTANT Verified by Nieves Arredondo on 09/26/2024. Provider Outside LAB - BLOOD ORDERABLES Edited IdeaString BREEZE PFT NON-INTERFACED (ONBASE SCANS) * (ABNORMAL) Luteinizing Hormone (06/26/2024 10:28 AM PARKING ASSISTANT) Lutropin (External) 37.4(H) 1.7 - 8.6 IU/L NON-INTERFACED (ONBASE SCANS) Blood BLOOD SPECIMEN / Unknown 06/26/2024 10:28 AM PARKING ASSISTANT Narrative BREEZE PFT - 09/26/2024 10:49 AM PARKING ASSISTANT Verified by Nieves Arredondo on 09/26/2024. Provider Outside LAB - BLOOD ORDERABLES Edited IdeaString BREEZE PFT NON-INTERFACED (ONBASE SCANS) * hCG Quantitative (06/26/2024 10:28 AM PARKING ASSISTANT) hCG Quantitative 1 0 - 3 IU/L NO N-INTERFACE D (ONBASE SCANS) Blood BLOOD SPECIMEN / Unknown 06/26/2024 10:28 AM PARKING ASSISTANT Narrative BREEZE PFT - 09/26/2024 10:49 AM PARKING ASSISTANT Verified by Nieves Arredondo on 09/26/2024. Provider Outside LAB - BLOOD ORDERABLES Edited R esult - Final BREEZE PFT NON-INTERFACED (ONBASE SCANS) * Hepatitis C antibody (10/12/2019 10:31 PM PARKING ASSISTANT) Hepatitis C Antibody Nonreactive NR^Nonre active 10/15/2019 12:00 PM PARKING ASSISTANT [facility] Comment: Assay performance characteristics have not been established for newborns, infants, and children Blood specimen (specimen) 10/12/2019 10:31 PM PARKING ASSISTANT 10/12/2019 10:32 PM PARKING ASSISTANT us Timi Vail MD LAB - BLOOD ORDERABLES Final Result Performing Organization Address [place]/[facility] Co de Phone Number [facility] [address] [place] [address] * COLONOSCOPY (09/30/2010 9:40 AM PARKING ASSISTANT) COLONOSCOPY [facility] Patient Name: Kar Aguilar Procedure Date: 09/30/2010 [...] 9:40 AM RADIOLOGY RESULTS 09/30/2010 9:40 AM PARKING ASSISTANT Andrew Erickson MD PROCEDURES Final Result RADIOLOGY RESULTS from Last 3 Months or Most Recently Relevant to Health Maintenance Insurance [place] * Guarantor: Kar Aguilar Account Type Relation to Patient Date of Phone Billing Address Medication Therapy Self 1950 [id number] [place] [address] [place] Advance Directives For more information, please contact: [phone] * Full Code (Latest Code Status on [...] patie nt/ legal decision maker Care Teams Child Therapist Relationship Specialty Start Date End Date Andrew Erickson MD PCP - General Family Practice 11/12/17 Sandoval Boggs MD [address] [place] [address] Clinical Neurophysiology 11/03/18 Jordan Erickson MD [address] [address] 11/03/18 Essence Wise, [facility] [address] [place] [address] Pharmacist Pharmacist 06/01/21 Heidy Harrell DO [address] [place] [address] Neurology 09/28/21 Heidy Harrell DO [address] [place] [address] 27394 Assigned Neuroscience Provider 04/17/22 Essence Wise, [facility] [address] [place] [address] 53895 Assigned MTM Pharmacist 10/14/23 Pablito Paulson MD [address] [place] [address] 7[address] Assigned Pulmonology Provider 03/13/24 Phuc Cruz MD [address] [place] [address] Cardiovascular Disease 09/20/24
--- OUTSIDE RECORDS SUMMARY | 2024-09-26 12:17 | XMS_ITS | Encounter Summary ---
Author Organization [place] Address [address] [place] [address] Care Team Providers Care Rib Matcher And Fitter Name Role Phone Andrew Erickson MD Primary Care Provider [phone] Sand[place] Boggs MD Unavailable +[phone] Jordan Erickson MD Unavailable +[phone] [place] Boggs MD Unavailable +[phone] Erich Gillette MD Unavailable +[phone] Essence Wise [facility] Unavailable +[phone] Manish Catherine PA-C Unavailable +[phone] Heidy Harrell DO Unavailable +[phone] Heidy Harrell DO Unavailable +[phone] Essence Wise [facility] Unavailable +[phone] Heidy Harrell DO Unavailable +[phone] Essence Wise [facility] Unavailable [phone] Essence Wise [facility] Unavailable +[phone] Pablito Paulson MD Unavailable Phuc Cruz MD Unavailable +[phone] Encounter Details Date Type Department Care Team (Late st Contact Info) Description 02/18/2021 [facility] Neurology [place] [id number] [phone] [facility] Social History Tobacco Use Types Packs/Day Years Used Date Smoking Tobacco: Never Smokeless Tobacco: Never Alcohol Use Standard Drinks/Week Comments Yes 0 (1 standard drink = 0.6 oz pur e alcohol) occas PHQ-2 Answer Date Recorded PHQ-2 Score 2 08/28/2019 Sex and Gender Information Value Date Recorded Sex Assigned at Male 04/09/2020 8:36 AM CDT 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 [place] [address] [facility] [address] [place] [address] Phuc Cruz MD [address] [place] [address] 01/16/2025 12:45 PM CDT Office Visit [facility] Neurology Clinic [facility] [address] [place] [phone] Lary Schmitz, CERTIFIED NUCLEAR MEDICINE TECHNOLOGIST [facility] [address] [facility] [id number] [place] [address] documented as of this encounter Visit Diagnoses Not on filedocumented in this encounter Additional Health Concerns Assessment Noted Time PHQ-9 Depression Total Score: 12 020 6:56 AM HEALTH UNDERWRITER documented as of this encounter Care Teams Rib Matcher And Fitter Relationship Specialty Start Date End Date Andrew Erickson MD PCP - General Family Practice 11/12/17 [place] Boggs MD [address] [place] [address] Clinical Neurophysiology 11/03/18 Jordan Erickson MD [address] [address] 11/03/18 [place] Boggs MD [address] [place] [address] Assigned Neuroscience Provider 06/13/20 09/19/21 Erich Gillette MD [address] [facility] [address] [place] [address] Assigned Sleep Provider 06/13/20 06/12/24 Essence Wise, [facility] [address] [place] [address] Pharmacist Pharmacist 06/01/21 Manish Catherine PA-C [address] [facility] [address] [place] [address] Assigned Neuroscience Provider 09/20/21 11/14/21 Heidy Harrell DO [address] [place] [address] Neurology 09/28/21 Heidy Harrell DO [address] [place] [address] Assigned Neuroscience Provider 04/17/22 Essence Wise [facility] [address] [place] [address] 32198 Assigned MTM Pharmacist 01/16/22 05/07/22 Heidy Harrell DO [address] [place] [address] 72725 Assigned Neuroscience Provider 11/15/21 04/16/22 Essence Wise [facility] [address] [place] [address] Assigned MTM Pharmacist 05/19/22 07/01/23 Essence Wise [facility] [address] [place] [address] Assigned MTM Pharmacist 10/14/23 Pablito Paulson MD [address] [place] [address] Assigned Pulmonology Provider 03/13/24 Phuc Cruz MD [address] [place] [address] Cardiovascular Disease 09/20/24 documented as of this encounter
--- OUTSIDE RECORDS SUMMARY | 2024-09-26 12:17 | XMS_ITS | Encounter Summary ---
Author Organization [place] Address [address] [place] [address] Care Team Providers Care Pad Machine Feeder Name Role Phone Andrew Erickson MD Primary Care Provider [phone] [place] Boggs MD Unavailable [phone] Jordan Erickson MD Unavailable +[phone] [place] Boggs MD Unavailable +[phone] Erich Gillette MD Unavailable [phone] Essence Wise [facility] Unavailable +[phone] Manish Catherine PA-C Unavailable +[phone] Heidy Harrell DO Unavailable +[phone] Heidy Harrell DO Unavailable +[phone] Essence Wise [facility] Unavailable +[phone] Heidy Harrell DO Unavailable [phone] Essence Wise [facility] Unavailable +[phone] Essence Wise [facility] Unavailable +[phone] Pablito Paulson MD Unavailable Phuc Cruz MD Unavailable +[phone] Encounter Details Date Type Department Care Team (Late st Contact Info) Description 02/17/2021 [facility] Neurology [address] [phone] [place] Boggs MD [address] [place], [place] [address] Social History Tobacco Use Types Packs/Day Years Used Date Smoking Tobacco: Never Smokeless Tobacco: Never Alcohol Use Standard Drinks/Week Comments Yes 0 (1 standard drink = 0.6 oz pur e alcohol) occas PHQ-2 Answer Date Recorded PHQ-2 Score 2 08/28/2019 Sex and Gender Information Value Date Recorded Sex Assigned at Male 04/09/2020 8:36 AM CDT 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 Gender Identity Male 04/09/2020 8:36 AM CDT Sexual Orientation Straight 04/09/2020 8: 36 AM CDT documented as of this encounter Plan of Treatment Upcoming Encounters Date Type Department Care Team (Late st Contact Info) Description 10/31/2024 7:30 AM CDT Appointment [facility] Specialty Care [address] [facility] [address] [place] [address] Phuc Cruz MD [address] [place], [place] [address] 11/06/2024 9:00 AM CDT Office Visit [facility] [place] [address] [facility] [address] [place] [phone] Phuc Cruz MD [address] [place] [address] 01/16/2025 12:45 PM CDT Office Visit [facility] Neurology Clinic [facility] [address] [place] [phone] Lary Schmitz, EVERETTE GRAVEL ROOFER 909 [facility] [id number] [place] [address] documented as of this encounter Visit Diagnoses Not on filedocumented in this encounter Additional Health Concerns Assessment Noted Time PHQ-9 Depression Total Score: 12 020 6:56 AM ELECTRIC ORGAN ASSEMBLER documented as of this encounter Care Teams Pad Machine Feeder Relationship Specialty Start Date End Date Andrew Erickson MD PCP - General Family Practice 11/12/17 [place] Boggs MD [address] [place] [address] Clinical Neurophysiology 11/03/18 Jordan Erickson MD [facility] [address] [place] [address] 11/03/18 Sandoval Boggs MD [address] [place] [address] Assigned Neuroscience Provider 06/13/20 09/19/21 Erich Gillette MD [address] [address] Assigned Sleep Provider 06/13/20 06/12/24 Essence Wise, [facility] [address] [place] [address] Pharmacist Pharmacist 06/01/21 Manish Catherine PA-C [address] [address] Assigned Neuroscience Provider 09/20/21 11/14/21 Heidy Harrell DO [address] [place] [address] Neurology 09/28/21 Heidy Harrell DO [address] [place] [address] Assigned Neuroscience Provider 04/17/22 Essence Wise [facility] [address] [place] [address] Assigned MTM Pharmacist 01/16/22 05/07/22 Heidy Harrell DO [address] [place] [address] Assigned Neuroscience Provider 11/15/21 04/16/22 Essence Wise [facility] [address] [place] [address] Assigned MTM Pharmacist 05/19/22 07/01/23 Essence Wise, [facility] [address] [place] [address] Assigned MTM Pharmacist 10/14/23 Pablito Paulson MD [address] [place] [address] Assigned Pulmonology Provider 03/13/24 Phuc Cruz MD [address] [place] [address] Cardiovascular Disease 09/20/24 documented as of this encounter
--- OUTSIDE RECORDS SUMMARY | 2024-09-26 12:17 | XMS_ITS | Encounter Summary ---
Author Organization [place] Address [address] [place] [address] Care Team Providers Care Natural Science Curator Name Role Phone Andrew Erickson MD Primary Care Provider [phone] [place] Boggs MD Unavailable [phone] Jordan Erickson MD Unavailable [phone] Erich Gillette MD Unavailable [phone] Essence Wise [facility] Unavailable [phone] Heidy Harrell DO Unavailable [phone] Heidy Harrell DO Unavailable [phone] Essence Wise [facility] Unavailable [phone] Essence Wise [facility] Unavailable +[phone] Pablito Paulson MD Unavailable Phuc Cruz MD Unavailable +[phone] Encounter Details Date Type Department Care Team (Late st Contact Info) Description 04/11/2023 [facility] Neurology Clinic [address] [place] [address] Stephanie Guajardo Social History Tobacco Use Types Packs/Day Years Used Date Smoking Tobacco: Former Cigarettes Q uit: 1982 Smokeless Tobacco: Never Alcohol Use Standard Drinks/Week Comments Yes 15 (1 standard drink = 0.6 oz pure alcohol) (3 drinks 4-5 times/week, usually vodka) PHQ-2 Answer Date Recorded PHQ-2 Score 0 03/24/2023 Sex and Gender Information Value Date Recorded Sex Assigned at Male 04/09/2020 8:36 AM CDT 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 No / Unsure 03/24/2023 7:08 AM CDT documented as of this encounter Plan of Treatment Upcoming Encounters Date Type Department Care Team (Late st Contact Info) Description 10/31/2024 7:30 AM CDT Appointment [facility] Specialty Care [address] [facility] 160 [place] [address] Phuc Cruz MD [address] [place], [place] [address] 11/06/2024 9:00 AM CDT Office [facility] Heart [facility] [address] [facility] [address] [place] [address] Phuc Cruz MD [address] [place], [place] [address] 01/16/2025 12:45 PM CDT Office [facility] Neurology Clinic [facility] [address] [place] [phone] Lary Schmitz, PATHOLOGY SUPERVISOR [facility] 909 [facility]2121[place], [place] [address] documented as of this encounter Visit Diagnoses Not on filedocumented in this encounter Additional Health Concerns Assessment Noted Time PHQ-9 Depression Total Score: 14 021 7:02 AM CDT documented as of this encounter Care Teams Natural Science Curator Relationship Specialty Start Date End Date Andrew Erickson MD PCP - General Family Practice 11/12/17 [place] Boggs MD [address] [place] [address] Clinical Neurophysiology 11/03/18 Jordan Erickson MD [address] [address] 11/03/18 Erich Gillette MD [address] [address] Assigned Sleep Provider 06/13/20 06/12/24 Essence Wise [facility] [address] [place] [address] Pharmacist Pharmacist 06/01/21 Heidy Harrell DO [address] [place] [address] Neurology 09/28/21 Heidy Harrell DO [address] [place] [address] Assigned Neuroscience Provider 04/17/22 Essence Wise [facility] [address] [place] [address] Assigned MTM Pharmacist 05/19/22 07/01/23 Essence Wise [facility] [address] [place] [address] Assigned MTM Pharmacist 10/14/23 Pablito Paulson MD [address] [place] [address] Assigned Pulmonology Provider 03/13/24 Phuc Cruz MD [address] [place] [address] Cardiovascular Disease 09/20/24 documented as of this encounter
--- OUTSIDE RECORDS SUMMARY | 2024-09-26 12:17 | XMS_ITS | Encounter Summary ---
Author Organization [place] Address [address] [place] [address] Care Team Providers Care Sticker Operator Name Role Phone Andrew Erickson MD Primary Care Provider [phone] [place] Boggs MD Unavailable [phone] Jordan Erickson MD Unavailable [phone] Essence Wise [facility] Unavailable [phone] Heidy Harrell DO Unavailable +[phone] Heidy Harrell DO Unavailable +[phone] Essence Wise [facility] Unavailable +[phone] Pablito Paulson MD Unavailable Encounter Details Date Type Department Care Team (Latest Contact Info) Description 09/19/2024 Travel Social History Tobacco Use Types Packs/Day [...] AM CDT 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 Gender Identity Male 04/09/2020 8:36 AM CDT Sexual Orientation Straight 04/09/2020 8: 36 AM CDT documented as of this encounter Plan of Treatment Upcoming Encounters Date Type Department Care Team (Late st Contact Info) Description 10/31/2024 7:30 AM CDT Appointment [facility] Specialty Care [address] [facility] [address] [place] [address] Phuc Cruz MD [address] [place] [address] 11/06/2024 9:00 AM CDT Office Visit [facility] Heart [facility] [address] [facility] [address] [place] [address] Phuc Cruz MD [address] [place] [address] 01/16/2025 12:45 PM CDT Office Visit [facility] Neurology [facility] 18[address] [place] [phone] Lary Schmitz, STONE GRADER REHABILITATION CONSULTANT [address] [place] [address] [place], [place] [address] documented as of this encounter Visit Diagnoses Not on filedocumented in this encounter Additional Health Concerns Assessment Noted Time PHQ-9 Depression Total Score: 14 021 7:02 AM CDT documented as of this encounter Care Teams Sticker Operator Relationship Specialty Start Date End Date Andrew Erickson MD PCP - General Family Practice 11/12/17 [place] Boggs MD [address] [place] [address] Clinical Neurophysiology 11/03/18 Jordan Erickson MD [address] [place] [address] 11/03/18 Essence Wise [facility] [address] [place] [address] Pharmacist Pharmacist 06/01/21 Heidy Harrell DO [address] [place] [address] Neurology 09/28/21 Heidy Harrell DO [address] [place] [address] Assigned Neuroscience Provider 04/17/22 Essence Wise [facility] [address] [place] [address] Assigned MTM Pharmacist 10/14/23 Pablito Paulson MD [address] [place] [address] Assigned Pulmonology Provider 03/13/24 documented as of this encounter
--- OUTSIDE RECORDS SUMMARY | 2024-09-26 12:17 | XMS_ITS | Encounter Summary ---
Author Organization [place] Address [address] [facility] [place] [address] Care Team Providers Care Gas Or Petroleum Operator Name Role Phone Andrew Erickson MD Primary Care Provider [phone] [place] Boggs MD Unavailable [phone] Jordan Erickson MD Unavailable [phone] Erich Gillette MD Unavailable [phone] Essence Wise [facility] Unavailable Heidy Harrell DO Unavailable +[phone] Heidy Harrell DO Unavailable [phone] Essence Wise [facility] Unavailable [phone] Essence Wise [facility] Unavailable [phone] Pablito Paulson MD Unavailable Phuc Cruz MD Unavailable +[phone] Encounter Details Date Type Department Care Team (Late st Contact Info) Description 12/29/2022 [facility] Neurology Clinic 9[address] 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 No / Unsure 12/01/2022 10:42 AM CDT documented as of this encounter Plan of Treatment Upcoming Encounters Date Type Department Care Team (Late st Contact Info) Description 10/31/2024 7:30 AM CDT Appointment [facility] Specialty Care [address] [facility] [address] [place] [phone] Phuc Cruz MD [address] [place], [place] [address] 11/06/2024 9:00 AM CDT Office Visit [facility] Heart [facility] [address] [facility] [address] [place] [phone] Phuc Cruz MD [address] [place], [place] [address] 01/16/2025 12:45 PM CDT Office Visit [facility] Neurology Clinic [facility] [address] [place] [address] Lary Schmitz, COMMERCIAL LOAN UNDERWRITER [facility] 909 [facility]121[place] [address] documented as of this encounter Visit Diagnoses Not on filedocumented in this encounter Additional Health Concerns Assessment Noted Time PHQ-9 Depression Total Score: 14 021 7:02 AM CDT documented as of this encounter Care Teams Gas Or Petroleum Operator Relationship Specialty Start Date End Date Andrew Erickson MD PCP - General Family Practice 11/12/17 [place] Boggs MD [address] [place] [address] Clinical Neurophysiology 11/03/18 Jordan Erickson MD [address] [address] 11/03/18 Erich Gillette MD [address] [address] Assigned Sleep Provider 06/13/20 06/12/24 Essence Wise [facility] [address] [place] [address] Pharmacist Pharmacist 06/01/21 Heidy Harrell DO [address] [place] [address] Neurology 09/28/21 Heidy Harrell DO [address] [place] [address] Assigned Neuroscience Provider 04/17/22 Essence Wise [facility] [address] [place] [address] Assigned MTM Pharmacist 05/19/22 07/01/23 Essence Wise, [facility] 9[address] [place] [address] Assigned MTM Pharmacist 10/14/23 Pablito Paulson MD [address] [place], [place] [address] Assigned Pulmonology Provider 03/13/24 Phuc Cruz MD [address] [place] [address] Cardiovascular Disease 09/20/24 documented as of this encounter
--- OUTSIDE RECORDS SUMMARY | 2024-09-26 12:17 | XMS_ITS | Encounter Summary ---
Author Organization [facility] Address [address] [place] [address] Care Team Providers Care Warehouse Guard Name Role Phone Andrew Erickson MD Primary Care Provider [phone] Sandoval Boggs MD Unavailable [phone] Jordan Erickson MD Unavailable [phone] Essence Wise [facility] Unavailable [phone] Heidy Harrell DO Unavailable [phone] Heidy Harrell DO Unavailable [phone] Essence Wise [facility] Unavailable [phone] Pablito Paulson MD Unavailable Phuc Cruz MD Unavailable Encounter Details Date Type Department Care Team (Late st Contact Info) Description 07/26/2024 External Order Results [facility] [address] [place] [address] Outside, Provider Social History Tobacco Use Types [...] AM CDT Legal Sex Male 3:26 AM MECHANICAL SYSTEMS DESIGNER Gender Identity Male 04/09/2020 8:36 AM CDT Sexual Orientation Straight 04/09/2020 8: 36 AM CDT documented as of this encounter Plan of Treatment Upcoming Encounters Date Type Department Care Team (Late st Contact Info) Description 10/31/2024 7:30 AM CDT Appointment [facility] [address] [place] [address] Phuc Cruz MD [address] [place], [place] [address] 11/06/2024 9:00 AM CDT Office Visit [facility] Heart [facility] [address] [place] [phone] Phuc Cruz MD [address] [place] [address] 01/16/2025 12:45 PM CDT Office Visit [facility] Neurology [address] [place] [place] [phone] Lary Schmitz, CHIEF ORDER DISPATCHER [facility] [address] [id number] [place] [address] documented as of this encounter Procedures Procedure Name Priority Date/Time Associated Diagnosis Comments EXTERNAL LAB RESULTS Routine 07/26/2024 10:18 AM MECHANICAL SYSTEMS DESIGNER BASIC METABOLIC PANEL Routine 07/26/2024 10:18 AM MECHANICAL SYSTEMS DESIGNER LIPID PROFILE Routine 06/26/2024 10:29 AM MECHANICAL SYSTEMS DESIGNER HEPATIC FUNCTION PANEL Routine 06/26/2024 10:29 AM MECHANICAL SYSTEMS DESIGNER BASIC METABOLIC PANEL Routine 06/26/2024 10:29 AM MECHANICAL SYSTEMS DESIGNER TESTOSTERONE FREE AND TOTAL Routine 06/26/2024 10:28 AM MECHANICAL SYSTEMS DESIGNER EXTERNAL LAB RESULTS Routine 06/26/2024 10:28 AM MECHANICAL SYSTEMS DESIGNER LUTEINIZING HORMONE Routine 06/26/2024 1 0:28 AM MECHANICAL SYSTEMS DESIGNER HCG QUANTITATIVE Routine 06/26/2024 10:28 AM MECHANICAL SYSTEMS DESIGNER CBC WITH PLATELETS Routine 06/26/2024 10 :28 AM MECHANICAL SYSTEMS DESIGNER documented in this encounter Results * (ABNORMAL) Basic metabolic panel (07/26/2024 10:18 AM MECHANICAL SYSTEMS DESIGNER) Sodium (External) 135 135 - 149 mmol/l [...] BLOOD SPECIMEN / Unknown 07/26/2024 10:18 AM MECHANICAL SYSTEMS DESIGNER Clive NIKOLE PFT - 09/26/2024 9:59 AM MECHANICAL SYSTEMS DESIGNER Verified by Chloe Fan on 09/26/2024. us Provider Outside LAB - BLOOD ORDERABLES Edited R esult - Final NIKOLE PFT NON-INTERFACED (ONBASE SCANS) * External Lab Results (07/26/2024 10:18 AM MECHANICAL SYSTEMS DESIGNER) Scan Lab Results (External) See Scanned Report NON-INTERFACE D (ONBASE SCANS) Comment:Monoclonal proteins SPEP/JAQUAN 07/26/2024 10:1 8 AM MECHANICAL SYSTEMS DESIGNER Narrative BREEZE PFT - 09/26/2024 9:59 AM MECHANICAL SYSTEMS DESIGNER Verified by Chloe Fan on 09/26/2024. us Provider Outside LABORATORY Edited Result - Final Performing Organization Address City/[facility]/ZIP Co de Phone Number SERENITYEZE PFT NON-INTERFACED (ONBASE SCANS) * (ABNORMAL) Basic metabolic panel (06/26/2024 10:29 AM MECHANICAL SYSTEMS DESIGNER) Sodium (External) 133(L) 135 - 149 mmol/L NON-INTERFACED (ONBASE SCANS) Potassium (External) 4.2 3.2 - 5.1 mmol/L NON-INTERFACED (ONBASE SCANS) Chloride (External) 94(L) 96 - 114 mmol/l NON-INTERFACED (ONBASE SCANS) CO2 (External) 31 20 - 32 mmol/L NON-INTERFACED (ONBASE SCANS) Anion Gap (External) 8 7 - 15 mEq/L NON-INTERFACED (ONBASE SCANS) Urea Nitrogen (External) 28 7 - 30 mg/dl NON-INTERFACED (ONBASE SCANS) GFR Estimated (External) 42 ml/min/1.7 3m2 NON-INTERFACED (ONBASE SCANS) Calcium (External) 9.8 9.4 - 10.6 mg/dl NON-INTERFACED (ONBASE SCANS) Glucose (External) 108 60 - 115 mg/dl NON-INTERFACED (ONBASE SCANS) Blood BLOOD SPECIMEN / Unknown 06/26/2024 10:29 AM MECHANICAL SYSTEMS DESIGNER Narrative SERENITYEZE PFT - 09/26/2024 10:49 AM MECHANICAL SYSTEMS DESIGNER Verified by Nieves Arredondo on 09/26/2024. us Provider Outside LAB - BLOOD ORDERABLES Edited [email or web address] Performing Organization Address [facility] Co de Phone Number BREEZE PFT NON-INTERFACED (ONBASE SCANS) * Hepatic function panel (06/26/2024 10:29 AM MECHANICAL SYSTEMS DESIGNER) Protein Total (External) 7.3 6.0 - 8.3 g/dL NON-INTERFACED (ONBASE SCANS) Albumin (External) 4.5 3.3 - 5.0 g/dL NON-INTERFACED (ONBASE SCANS) Bilirubin Total (External) 0.7 0.1 - 1.5 mg/dl NON-INTERFACED (ONBASE SCANS) AST (External) 33 12 - 35 U/L NON-INTERFACED (ONBASE SCANS) ALT (External) 5 4 - 50 U/L NON- INTERFACED (ONBASE SCANS) Alk Phosphatase (External) 52 40 - 150 U/L NON-INTERFACED (ONBASE SCANS) Blood BLOOD SPECIMEN / Unknown 06/26/2024 10:29 AM MECHANICAL SYSTEMS DESIGNER Narrative BREEZE PFT - 09/26/2024 10:49 AM MECHANICAL SYSTEMS DESIGNER Verified by Nieves Arredondo on 09/26/2024. Result [facility] Provider Outside LAB - BLOOD ORDERABLES Edited [employer] Performing Organization Address [facility] de Phone Number BREEZE PFT NON-INTERFACED (ONBASE SCANS) * Lipid Profile (06/26/2024 10:29 AM MECHANICAL SYSTEMS DESIGNER) Pathologist [facility] Triglycerides (External) 80 40 - 149 mg/dL NON-INTERFACE D (ONBASE SCANS) Blood BLOOD SPECIMEN / Unknown 06/26/2024 10:29 AM MECHANICAL SYSTEMS DESIGNER Narrative BREEZE PFT - 09/26/2024 10:49 AM MECHANICAL SYSTEMS DESIGNER Verified by Nieves Arredondo on 09/26/2024. Result [facility] Provider Outside LAB - BLOOD ORDERABLES Edited [email or web address] Performing Organization Address [facility] Co de Phone Number BREEZE PFT NON-INTERFACED (ONBASE SCANS) * (ABNORMAL) CBC with platelets (06/26/2024 10:28 AM MECHANICAL SYSTEMS DESIGNER) WBC Count (External) 5.77 4.50 - 11.00 K/uL NON-INTERFACE D (ONBASE SCANS) RBC Count (External) 3.87(L) 4.30 - 5.90 M/UL NON-INTERFACE D (ONBASE SCANS) Hemoglobin (External) 13.6 13.5 - 17.5 g/dL NON-INTERFACE D (ONBASE SCANS) Hematocrit (External) 40.3 37.0 - 53.0 % NON-INTERFACE D (ONBASE SCANS) MCV (External) 104(H) 80 - 100 fL NON-INTERFACE D (ONBASE SCANS) MCH (External) 35(H) 26 - 34 pg NON- INTERFACE D (ONBASE SCANS) MCHC (External) 34 32 - 36 g/dL NON-INTERFACE D (ONBASE SCANS) Platelet Count (External) 215 140 - 440 K/uL NON-INTERFACE D (ONBASE SCANS) Blood BLOOD SPECIMEN / Unknown 06/26/2024 10:28 AM MECHANICAL SYSTEMS DESIGNER Narrative BREEZE PFT - 09/26/2024 10:49 AM MECHANICAL SYSTEMS DESIGNER Verified by Nieves Arredondo on 09/26/2024. us Provider Outside LAB - BLOOD ORDERABLES Edited R esult - Final BREEZE PFT NON-INTERFACED (ONBASE SCANS) * External Lab Results (06/26/2024 10:28 AM MECHANICAL SYSTEMS DESIGNER) Scan Lab Results (External) See Scanned Report NON-INTERFACE D (ONBASE SCANS) Comment:sex hormone bind vasyl bulin 06/26/2024 10:2 8 AM MECHANICAL SYSTEMS DESIGNER Narrative BREEZE PFT - 09/26/2024 10:49 AM MECHANICAL SYSTEMS DESIGNER Verified by iNeves Arredondo on 09/26/2024. us Provider Outside LABORATORY Edited Result - Final BREEZE PFT NON-INTERFACED (ONBASE SCANS) * Testosterone Free and Total (06/26/2024 10:28 AM MECHANICAL SYSTEMS DESIGNER) Pathologist [facility] Testosterone Free (External) 1.7 1.6 - 2.9 % NON-INTERFACE D (ONBASE SCANS) Blood 06/26/2024 10:2 8 AM MECHANICAL SYSTEMS DESIGNER Narrative BREEZE PFT - 09/26/2024 10:49 AM MECHANICAL SYSTEMS DESIGNER Verified by Nieves Arredondo on 09/26/2024. Provider Outside LAB - BLOOD ORDERABLES Edited R [employer] BREEZE PFT NON-INTERFACED (ONBASE SCANS) * (ABNORMAL) Luteinizing Hormone (06/26/2024 10:28 AM MECHANICAL SYSTEMS DESIGNER) Pathologist [facility] Lutropin (External) 37.4(H) 1.7 - 8.6 IU/L NON-INTERFACED (ONBASE SCANS) Blood BLOOD SPECIMEN / Unknown 06/26/2024 10:28 AM MECHANICAL SYSTEMS DESIGNER Narrative BREEZE PFT - 09/26/2024 10:49 AM MECHANICAL SYSTEMS DESIGNER Verified by Nieves Arredondo on 09/26/2024. Provider Outside LAB - BLOOD ORDERABLES Edited [employer] BREEZE PFT NON-INTERFACED (ONBASE SCANS) * hCG Quantitative (06/26/2024 10:28 AM MECHANICAL SYSTEMS DESIGNER) Pathologist [facility] hCG Quantitative 1 0 - 3 IU/L NO N-INTERFACE D (ONBASE SCANS) Blood BLOOD SPECIMEN / Unknown 06/26/2024 10:28 AM MECHANICAL SYSTEMS DESIGNER Narrative BREEZE PFT - 09/26/2024 10:49 AM MECHANICAL SYSTEMS DESIGNER Verified by Nieves Arredondo on 09/26/2024. Provider Outside LAB - BLOOD ORDERABLES Edited [employer] BREEZE PFT NON-INTERFACED (ONBASE SCANS) documented in this encounter Visit Diagnoses Not on filedocumented in this encounter Additional Health Concerns Assessment Noted Time PHQ-9 Depression Total Score: 14 021 7:02 AM CDT documented as of this encounter Care Teams Warehouse Guard Relationship Specialty Start Date End Date Andrew Erickson MD PCP - General Family Practice 11/12/17 Sandoval Boggs MD [address] [place] [address] Clinical Neurophysiology 11/03/18 Jordan Erickson MD [address] [address] 11/03/18 Essence Wise [facility] [address] [place] [address] Pharmacist Pharmacist 06/01/21 Heidy Harrell DO [address] [place] [address] Neurology 09/28/21 Heidy Harrell DO [address] [place] [address] Assigned Neuroscience Provider 04/17/22 Essence Wise [facility] [address] [place] [address] Assigned MTM Pharmacist 10/14/23 Pablito Paulson MD [address] [place] [address] Assigned Pulmonology Provider 03/13/24 Phuc Cruz MD [address] [place] [address] Cardiovascular Disease 09/20/24 documented as of this encounter
--- OUTSIDE RECORDS SUMMARY | 2024-09-26 12:18 | XMS_ITS | Encounter Summary ---
Author Organization [place] [facility] Address [address] [place] [address] Care Team Providers Care Social Worker Clinical Name Role Phone Andrew Erickson MD Primary Care Provider [phone] Sandoval Boggs MD Unavailable [phone] Jordan Erickson MD Unavailable [phone] Erich Gillette MD Unavailable [phone] Essence Wise [facility] Unavailable [phone] Heidy Harrell DO Unavailable [phone] Heidy Harrell DO Unavailable [phone] Essence Wise [facility] Unavailable [phone] Pablito Paulson MD Unavailable Phuc Cruz MD Unavailable [phone] Encounter Details Date Type Department Care Team (Latest Contact Info) Description 07/07/2023 Transcribe Orders GENERIC EXTERNAL DATA DEPARTMENT Provider, Generic External Data Polyneuropathy (Primary Dx) Social History Tobacco Use Types Packs/Day Years Used Date Smoking Tobacco: Former Cigarettes Q uit: 1982 Smokeless Tobacco: Never Alcohol Use Standard Drinks/Week Comments Yes 15 (1 standard drink = 0.6 oz pure alcohol) (3 drinks 4-5 times/week, usually vodka) PHQ-2 Answer Date Recorded PHQ-2 Score 0 03/24/2023 Adolescent Education Answer Date Record ed Getting School Help Needed Not on file 06/04 Sex and Gender Information Value Date Recorded Sex Assigned at Male 04/09/2020 8:36 AM CDT Legal Sex Male 3:26 AM AIRSET CASTER Gender Identity Male 04/09/2020 8:36 AM CDT Sexual Orientation Straight 04/09/2020 8: 36 AM CDT documented as of this encounter Plan of Treatment Upcoming Encounters Date Type Department Care Team (Late st Contact Info) Description 10/31/2024 7:30 AM CDT Appointment [facility] Care [address] [facility] [address] [place] [address] Phuc Cruz MD [address] [place], [place] [address] 11/06/2024 9:00 AM CDT Office Visit [facility] Heart [facility] [address] [facility] [address] [place] [phone] Phuc Cruz MD [address] [place] [address] 01/16/2025 12:45 PM CDT Office Visit [facility] Neurology [facility] [address] [place] [phone] Lary Schmitz, ROTARY ENGINE ASSEMBLER [facility] [address] [place] [address] [id number] [place] [address] documented as of this encounter Visit Diagnoses Diagnosis Polyneuropathy- Primary Unspecified hereditary and idiopathic peripheral neuropathy documented in this encounter Additional Health Concerns Assessment Noted Time PHQ-9 Depression Total Score: 14 021 7:02 AM CDT documented as of this encounter Care Teams Social Worker Clinical Relationship Specialty Start Date End Date Andrew Erickson MD PCP - General Family Practice 11/12/17 Sandoval Boggs MD [address] [place] [address] Clinical Neurophysiology 11/03/18 Jordan Erickson MD [facility] [address] [place] [address] 11/03/18 Erich Gillette MD [address] [place] [address] Assigned Sleep Provider 06/13/20 06/12/24 Essence Wise [facility] [address] [place] [address] Pharmacist Pharmacist 06/01/21 Heidy Harrell DO [address] [place] [address] Neurology 09/28/21 Heidy Harrell DO [address] [place] [address] Assigned Neuroscience Provider 04/17/22 Essence Wise [facility] [address] [place] [address] Assigned MTM Pharmacist 10/14/23 Pablito Paulson MD [address] [place] [address] Assigned Pulmonology Provider 03/13/24 Phuc Curz MD [address] [place] [address] Cardiovascular Disease 09/20/24 documented as of this encounter
--- OUTSIDE RECORDS SUMMARY | 2024-09-26 12:18 | XMS_ITS | Continuity of Care Document ---
Author Organization [facility] Address [address] [place] [address] Phone Care Team Providers Care Canvassing Manager Name Role Phone Phuc Xiao MD Unavailable [...] Date Provider Providers Copied on Encounter [facility], [address], [place], [place], [address], tel:[phone] [facility] No Information [address], [address], [place], [place], [address], [place]. tel:[phone] Referring Provider: Phuc Xiao, [address], [place], [address] . tel:[phone] [facility], [address], [place], [address], [place] tel:[phone] [facility] Spondylosis w/o myelopathy or radiculopathy, lumbar regionSpondyls w/o myelopathy or radiculopathy, lumbosacr regionOther intervertebral disc degeneration, lumbar regionLow back painSpondylosi s w/o myelopathy or radiculopathy, lumbar regionSpondyls w/o myelopathy or radiculopathy, lumbosacr regionOther intervertebral disc degeneration, lumbar regionLow back pain [facility]. [address], [place], [place], [address], [place]. tel:[phone] Referring Provider: Phuc Xiao, [address], [place], [address] . tel:[phone] [facility], [address], [address], [place], [address], [place] tel:[phone] [facility] back pain (chief complaint) Spondylosis w/o myelopathy or radiculopathy, lumbar regionSpondyls w/o myelopathy or radiculopathy, lumbosacr regionOther intervertebral disc degeneration, lumbar regionLow back painSpondylosi s w/o myelopathy or radiculopathy, lumbar regionSpondyls w/o myelopathy or radiculopathy, lumbosacr regionOther intervertebral disc degeneration, lumbar regionLow back pain 9 [facility]. [address], [place], [place], [address], [place]. tel:[phone] Referring Provider: Tr Bryant, [address], [place], [address] . tel:[phone] [facility], [facility], [address], [place], [place], [address], [place] tel:[phone] [facility] No Information 9 Camelia Armando. [address], [place], [place], [address], [place]. tel:[phone] Referring Provider: Tr Bryant, [address], [place], [address] . tel:[phone] [facility], [address], [place], [place], [address], [place] tel:[phone] [facility] No Information 9 Camelia Armando. [address], [place], [place], [address], [place]. tel:[phone] Referring Provider: Andrew Erickson MD C, [address], [place], [address]. tel:[phone] [facility], [address], [place], [address], [place] tel:[phone] [facility] back pain (chief complaint) Spondylosis w/o myelopathy or radiculopathy, lumbar regionSpondyls w/o myelopathy or radiculopathy, lumbosacr regionOther intervertebral disc degeneration, lumbar regionLow back painSpondylosi s w/o myelopathy or radiculopathy, lumbar regionSpondyls w/o myelopathy or radiculopathy, lumbosacr regionOther intervertebral disc degeneration, lumbar regionLow back pain 9 Camelia Armando. [address], [place], [place], [address], [place]. tel:[phone] Est Pt Eval 15 Min [facility], [address], [place], [place], [address], [place] tel:[phone] [facility] back pain (chief complaint) Intvrt disc disorders w radiculopathy, lumbosacral regionOther intervertebral disc degeneration, lumbar regionLow back painSpondyls w/o myelopathy or radiculopathy, lumbosacr region Nov- 9 Mei Rougui. [address], [place], [address], [place]. tel:[phone] Referring Provider: Andrew Ruff, [address], [place], [address]. tel:[phone] Est Pt Eval 15 Min [facility], [facility], [address], [place], [place], [address], [place] tel:[phone] [facility] back pain (chief complaint) Spondyls w/o myelopathy or radiculopathy, lumbosacr region 8 Dinega Gelane. [address], [place], [address], [place]. tel:[phone] Referring Provider: Andrew Ruff, [address], [place], [address]. tel:[phone] [facility], [facility], [address], [place], [place], [address], [place] tel:[phone] [facility] Physical Therapy Low back pain 8 Chiarg Grimm. [address], [place], [place], [address], [place]. tel:[phone] Referring Provider: Andrew Ruff, [address], [place], [address]. tel:[phone] [facility] [place], [address], [place], [address], [place] tel:[phone] [facility] back pain (chief complaint) Spondylosis w/o myelopathy or radiculopathy, lumbar regionSpondyls w/o myelopathy or radiculopathy, lumbosacr regionOther intervertebral disc degeneration, lumbar regionLow back painSpondylosi s w/o myelopathy or radiculopathy, lumbar regionSpondyls w/o myelopathy or radiculopathy, lumbosacr regionOther intervertebral disc degeneration, lumbar regionLow back pain Sep- 8 [facility]. [address], [place], [place], [address], [place]. tel:[phone] Referring Provider: Martina FRIED, [address], [place], [address] . tel:[phone] [facility], [address], [place], [place], [address], [place] tel:[phone] [facility] No Information Apr- 8 Yuval Mack. [address], [place], [place], [address], [place]. tel:[phone] Referring Provider: Martina FRIED, [address], [place], [address] . tel:[phone] [facility], [address], [place], [place], [address], [place] tel:[phone] [facility] [address] Low back painLow back painLow back painLow back pain Mar- 8 Schiltz Belia. [address], [place], [address], [place]. tel:[phone] Referring Provider: Andrew Erickson MD C, [address], [place], [address]. tel:[phone] [facility], [address], [place], [place], [address], [place] tel:[phone] [facility] [address] Low back pain 8 Schiltz Belia. [address], [place], [address], [place]. tel:[phone] Referring Provider: Andrew Ruff, [address], [place], [address]. tel:[phone] [facility], [address], [place], [place], [address], [place] tel:[phone] [facility] [address] Low back pain Feb- 0-201 8 Schiltz Belia. [address], [place], [address], [place]. tel:[phone] Referring Provider: Andrew Ruff, [address], [place], [address]. tel:[phone] [facility], [address], [place], [place], [address], [place] tel:[phone] [facility] [address] Low back pain 3-201 8 Schiltz Belia. [address], [place], [address], [place]. tel:[phone] Referring Provider: Andrew Ruff, [address], [place], [address]. tel:[phone] [facility], [address], [place], [place], [address], [place] tel:[phone] [facility] 7[address] No Information 9-201 8 Shadi Daniel. [address], [address], [place], [place], [address], [place]. tel:[phone] Referring Provider: Andrew Ruff, [address], [place], [address]. tel:[phone] [facility], [address], [place], [place], [address], [place] tel:[phone] [facility] 7[address] Low back pain Feb- 8 Schiltz Belia. [address] [facility] [address], [place], [address], [place]. tel:[phone] Referring Provider: Andrew Ruff, [address], [place], [address]. tel:[phone] Est Pt Eval 25 Min [facility], [facility], [address], [place], [place], [address], [place] tel:[phone] [facility] back pain (chief complaint) Spinal stenosis, lumbar region with neurogenic claudicationOt her intervertebral disc degeneration, lumbar regionSpondyls w/o myelopathy or radiculopathy, lumbosacr region Jan- 8 Dinega Gelane. [address] [facility] [address] [facility] [address], [place], [address], [place]. tel:[phone] Referring Provider: Andrew Ruff, [address], [place], [address]. tel:[phone] [facility], [address] [facility], [place], [place], [address], [place] tel:[phone] [facility] [address] No Information 8 Schiltz Belia. [address] [facility] [address], [place], [address], [place]. tel:[phone] Referring Provider: Andrew Ruff, [address], [place], [address]. tel:[phone] [facility], [address], [address], [place], [address], [place] tel:[phone] [facility] back pain (chief complaint) Low back painOther intervertebral disc degeneration, lumbar regionSpondyls w/o myelopathy or radiculopathy, lumbosacr regionSpondylo sis w/o myelopathy or radiculopathy, lumbar regionSpondylo sis w/o myelopathy or radiculopathy, lumbar regionSpondyls w/o myelopathy or radiculopathy, lumbosacr regionOther intervertebral disc degeneration, lumbar regionLow back pain 8 [facility]. [address], [place], [place], [address], [place]. tel:[phone] Referring Provider: Tr Bryant, [address], [place], [address] . tel:[phone] [facility], [facility], [address], [place], [place], [address], [place] tel:[phone] [facility] No Information 8 Camelia Armando. [address], [place], [place], [address], [place]. tel:[phone] Referring Provider: Tr Bryant, [address], [place], [address] . tel:[phone] [facility], [facility], [address] [facility] [address], [place], [place], [address], [place] tel:[phone] [facility] 7390 Low back pain 8 Chirag Grimm. [address], [place], [place], [address], [place]. tel:[phone] Referring Provider: Andrew Erickson MD C, [address], [place], [address]. tel:[phone] [facility], [address], [address], [place], [address], [place] tel:[phone] [facility] back pain (chief complaint) Spondylosis w/o myelopathy or radiculopathy, lumbar regionSpondylo sis w/o myelopathy or radiculopathy, lumbosacral regionOther intervertebral disc degeneration, lumbar regionLow back painSpondylosi s w/o myelopathy or radiculopathy, lumbar regionSpondyls w/o myelopathy or radiculopathy, lumbosacr regionOther intervertebral disc degeneration, lumbar regionLow back pain 8 [facility]. [address], [place], [place], [address], [place]. tel:[phone] Referring Provider: Tr Bryant, [address], [place], [address] . tel:[phone] [facility], [address], [place], [place], [address], [place] tel:[phone] [facility] No Information 8 Camelia Armando. [address], [place], [place], [address], [place]. tel:[phone] Referring Provider: Tr Bryant, [address], [place], [address] . tel:[phone] Est Pt Eval 25 Min [facility], [address], [place], [place], [address], [place] tel:[phone] [facility] back pain (chief complaint) Other intervertebral disc degeneration, lumbar regionIntvrt disc disorders w radiculopathy, lumbosacral regionSpondylo sis w/o myelopathy or radiculopathy, lumbar region 8 Dinega Gelane. [address], [place], [address], [place]. tel:[phone] Referring Provider: Andrew Erickson MD C, [address], [place], [address]. tel:[phone] [facility], [address], [place], [address], [place] tel:[phone] [facility] back pain (chief complaint) Intvrt disc disorders w radiculopathy, lumbosacral regionOther intervertebral disc degeneration, lumbar regionIntvrt disc disorders w radiculopathy, lumbosacral regionOther intervertebral disc degeneration, lumbar region [facility]. [address], [place], [place], [address], [place]. tel:[phone] Referring Provider: Phuc Xiao, [address], [place], [address] . tel:[phone] New Pt Eval 45 Min [facility], [address], [place], [place], [address], [place] tel:[phone] [facility] back pain (chief complaint) Spinal Stenosis, lumbar region with neurogenic claudicationOt her intervertebral disc degeneration, lumbar regionConn tiss and disc stenos of intvrt foramin of lumbar region 8 No Information Referring Provider: Andrew Erickson MD C, [address], [place], [address]. tel:[phone] [facility], [address] [facility] [address], [place], [place], [address], [place] tel:[phone] [facility] No Information [address] [facility] [address], [address], [place], [place], [address], [place]. tel:[phone] Referring Provider: Phuc Xiao, [address], [place], [address] . tel:[phone] Family History Family Member Type Diagnosis Age [...] ID Johana limon(s) Medicare Part B MB [id number] [employer] [id number] Social History Type Description Quantity Date Captured [...]
--- OUTSIDE RECORDS SUMMARY | 2024-09-26 12:18 | XMS_ITS | Encounter Summary ---
Author Organization [facility] Address [address] [facility] [place] [address] Care Team Providers Care Processor Inspector Name Role Phone Andrew Erickson MD Primary Care Provider [phone] Sandoval Boggs MD Unavailable [phone] Jordan Erickson MD Unavailable [phone] Erich Gillette MD Unavailable [phone] Essence Wise [facility] Unavailable [phone] Heidy Harrell DO Unavailable [phone] Heidy Harrell DO Unavailable [phone] Essence Wise [facility] Unavailable [phone] Pablito Paulson MD Unavailable Phuc Cruz MD Unavailable [phone] Encounter Details Date Type Department Care Team (Late st Contact Info) Description 10/05/2023 [facility] [address] [address] Essence Wise, [address] [address] Social History Tobacco Use Types Packs/Day [...] AM CDT Legal Sex Male 3:26 AM 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 [address] [place] [address] Phuc Cruz MD [address] [place], [place] [address] 01/16/2025 12:45 PM CDT Office Visit [facility] Neurology Clinic [facility] [address] [place] [address] Lary Schmitz, TELEMARKETER SUPERVISOR [facility] [address] [facility], [place] [address] documented as of this encounter Visit Diagnoses Not on filedocumented in this encounter Additional Health Concerns Assessment Noted Time PHQ-9 Depression Total Score: 14 021 7:02 AM CDT documented as of this encounter Care Teams Processor Inspector Relationship Specialty Start Date End Date Andrew Erickson MD PCP - General Family Practice 11/12/17 Sandoval Boggs MD [address] [place] [address] Clinical Neurophysiology 11/03/18 Jordan Erickson MD [address] [address] 11/03/18 Erich Gillette MD [address] [address] Assigned Sleep Provider 06/13/20 06/12/24 Essence Wise [facility] [address] [place] [address] Pharmacist Pharmacist 06/01/21 Heidy Harrell DO [address] [place] [address] Neurology 09/28/21 Heidy Harrell DO [address] [place] [address] Assigned Neuroscience Provider 04/17/22 Essence Wise [facility] [address] [place] [address] Assigned MTM Pharmacist 10/14/23 Pablito Paulson MD [address] [place] [address] Assigned Pulmonology Provider 03/13/24 Phuc Cruz MD [address] [place] [address] Cardiovascular Disease 09/20/24 documented as of this encounter
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
--- OUTSIDE RECORDS SUMMARY | 2024-09-26 12:18 | XMS_ITS | Encounter Summary ---
Author Organization [place] Address [address] [facility] [place] [address] Care Team Providers Care Gasoline Truck Crane Operator Name Role Phone Andrew Erickson MD Primary Care Provider [phone] Sandoval Boggs MD Unavailable [phone] Jordan Erickson MD Unavailable [phone] Erich Gillette MD Unavailable [phone] Essence Wise [facility] Unavailable [phone] Heidy Harrell DO Unavailable [phone] Heidy Harrell DO Unavailable [phone] Essence Wise [facility] Unavailable [phone] Pablito Paulson MD Unavailable Phuc Cruz MD Unavailable [phone] Encounter Details Date Type Department Care Team (Late st Contact Info) Description 10/21/2023 [facility] [address] [place] [address] Rosa Reina RN Social History [...] AM CDT Legal Sex Male 3:26 AM 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 Gender Identity Male 04/09/2020 8:36 AM CDT Sexual Orientation Straight 04/09/2020 8: 36 AM CDT documented as of this encounter Plan of Treatment Upcoming Encounters Date Type Department Care Team (Late st Contact Info) Description 10/31/2024 7:30 AM CDT Appointment [facility] [address] [facility] [address] [place] [phone] Phuc Cruz MD [address] [place], [place] [address] 11/06/2024 9:00 AM CDT Office Visit [facility] Heart [facility] [address] [facility] [address] [place] [address] Phuc Cruz MD [address] [place], [place] [address] 01/16/2025 12:45 PM CDT Office Visit [facility] Neurology Clinic [facility] [address] [place] [address] Lary Schmitz H, ASSISTED LIVING NURSING DIRECTOR LINE AND FRAME POLER [address] [facility] [id number] [place], [place] [address] documented as of this encounter Visit Diagnoses Not on filedocumented in this encounter Additional Health Concerns Assessment Noted Time PHQ-9 Depression Total Score: 14 021 7:02 AM CDT documented as of this encounter Care Teams Gasoline Truck Crane Operator Relationship Specialty Start Date End Date Andrew Erickson MD PCP - General Family Practice 11/12/17 Sandoval Boggs MD [address] [place] [address] [id number] Clinical Neurophysiology 11/03/18 Jordan Erickson MD [address] [address] 11/03/18 Erich Gillette MD [address] [address] Assigned Sleep Provider 06/13/20 06/12/24 Essence Wise [facility] [address] [place] [address] Pharmacist Pharmacist 06/01/21 Heidy Harrell DO [address] [place] [address] Neurology 09/28/21 Heidy Harrell DO [address] [place] [address] Assigned Neuroscience Provider 04/17/22 Essence Wise [facility] [address] [place] [address] Assigned MTM Pharmacist 10/14/23 Pablito Paulson MD [address] [place] [address] Assigned Pulmonology Provider 03/13/24 Phuc Cruz MD [address] [place] [address] Cardiovascular Disease 09/20/24 documented as of this encounter
--- OUTSIDE RECORDS SUMMARY | 2024-09-26 12:18 | XMS_ITS | Encounter Summary ---
Author Organization [place] Address [address] [place] [address] Care Team Providers Care Soldering Machine Tender Name Role Phone Andrew Erickson MD Primary Care Provider [phone] Sandoval Boggs MD Unavailable [phone] Jordan Erickson MD Unavailable [phone] Cheryl Mullen OIM CONSULTANT MATERIAL CHASER Unavailable + Libertad Bonlila OIM CONSULTANT MATERIAL CHASER Unavailable +[phone] Sandoval Boggs MD Unavailable [phone] Erich Gillette MD Unavailable +[phone] Libertad Bonilla APRN MATERIAL CHASER Unavailable +[phone] Cheryl Mullen OIM CONSULTANT MATERIAL CHASER Unavailable + Cheryl Mullen OIM CONSULTANT MATERIAL CHASER Unavailable + Libertad Bonilla OIM CONSULTANT MATERIAL CHASER Unavailable +[phone] Essence Wise [facility] Unavailable + [phone] Manish Catherine PA-C Unavailable + [phone] Heidy Harrell DO Unavailable +[phone] Heidy Harrell DO Unavailable [phone] Essence Wise [facility] Unavailable + [phone] Heidy Harrell DO Unavailable [phone] Essence Wise [facility] Unavailable +[phone] Essence Wise [facility] Unavailable [phone] Pablito Paulson MD Unavailable Phuc Cruz MD Unavailable [phone] Encounter Details Date Type Department Care Team (Late st Contact Info) Description 04/21/2020 Orders Only [facility] [address] [place] [phone] Chester Venegas MD [facility] [address] [facility] [address] [place], [place] [phone] Pre-operative laboratory examination (Primary Dx) Social History Tobacco Use Types Packs/Day Years Used Date Smoking Tobacco: Never Smokeless Tobacco: Never Alcohol Use Standard Drinks/Week Comments Yes 0 (1 standard drink = 0.6 oz pur e alcohol) occas PHQ-2 Answer Date Recorded PHQ-2 Score 2 08/28/2019 Sex and Gender Information Value Date Recorded Sex Assigned at Male 04/09/2020 8:36 AM CDT Legal Sex Male 3:26 AM IP/MOSAIC 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 Unable to assess 04/23/2020 11:03 AM CDT documented as of this encounter Plan of Treatment Upcoming Encounters Date Type Department Care Team (Late st Contact Info) Description 10/31/2024 7:30 AM CDT Appointment [facility] Specialty Care [address] [facility] [address] [place] [address] Phuc Cruz MD [address] [place] [address] 11/06/2024 9:00 AM CDT Office Visit [facility] Heart [facility] [address] [facility] [address] [place] [phone] Phuc Cruz MD [address] [place] [address] 01/16/2025 12:45 PM CDT Office Visit [facility] Neurology [facility] [address] [place] [address] Lary Schmitz, OIM CONSULTANT [facility] [address] [facility], [place] [address] documented as of this encounter Results * ABO/Rh type and screen (05/01/2020 9:25 AM CDT) ABO A 05/01/2020 10:34 AM CDT [facility] RH(D) Pos [facility] Antibody Screen Neg 05/01/2020 10:34 AM CDT [facility] Test Valid Only At [facility] 05/01/2020 9:37 AM CDT [facility] Specimen Expires 05/05/2020 05/01/2020 10:33 AM CDT [facility] Blood specimen (specimen) 05/01/2020 9:25 AM CDT 05/01/2020 9:26 AM CDT us Chester Venegas MD LAB - BLOOD BANK LALO T ORDER Edited Result - Final [facility] [address] [place] [address], [facility] [phone] documented in this encounter Visit Diagnoses Diagnosis Pre-operative laboratory examination- Primary Pre-procedural laboratory examination documented in this encounter Additional Health Concerns Infection Onset Date Last Indicated Resolved Time Rule Out COVID-19 05/19/2020 05/19/2020 05/21/2020 4:31 PM CDT Assessment Noted Time PHQ-9 Depression Total Score: 12 01/07/2 020 6:56 AM IP/MOSAIC TECHNICIAN documented as of this encounter Care Teams Soldering Machine Tender Relationship Specialty Start Date End Date Andrew Erickson MD PCP - General Family Practice 11/12/17 Sandoval [place]gs MD [address] [place] [address] Clinical Neurophysiology 11/03/18 Jordan Erickson MD [facility] [address] [place] [address] 11/03/18 Cheryl Mullen APRN MATERIAL CHASER [address] [place] [address] Assigned PCP 04/25/20 06/07/20 Libertad Bonilla APRN MATERIAL CHASER [address] [place] [address] Assigned PCP 06/08/20 09/06/20 Sandoval Boggs MD [address] [place] [address] Assigned Neuroscience Provider 06/13/20 09/19/21 Erich Gillette MD [address] [address] Assigned Sleep Provider 06/13/20 06/12/24 Libertad Bonilla APRN MATERIAL CHASER [address] [place] [address] Assigned PCP 09/14/20 10/18/20 Cheryl Mullen APRN MATERIAL CHASER [address] [place] [address] Assigned PCP 09/07/20 09/13/20 Cheryl Mullen APRN MATERIAL CHASER [facility] [place] [address] Assigned PCP 10/19/20 10/25/20 Libertad Bonilla APRN MATERIAL CHASER [address] [place] [address] Assigned PCP 10/26/20 11/12/20 Essence Wise [facility] [address] [place] [address] Pharmacist Pharmacist 06/01/21 Manish Catherine PA-C [address] [facility] [address] [address] Assigned Neuroscience Provider 09/20/21 11/14/21 Heidy Harrell DO [address] [place] [address] MD Neurology 09/28/21 Heidy Harrell DO [address] [place] [address] Assigned Neuroscience Provider 04/17/22 Essence Wise [facility] [address] [place] [address] Assigned MTM Pharmacist 01/16/22 05/07/22 Heidy Harrell DO [address] [place], [place] [address] Assigned Neuroscience Provider 11/15/21 04/16/22 Essence Wise [facility] [address] [place] [address] Assigned MTM Pharmacist 05/19/22 07/01/23 Essence Wise [facility] [address] [place] [address] Assigned MTM Pharmacist 10/14/23 Pablito Paulson MD [address] [place] [address] Assigned Pulmonology Provider 03/13/24 Phuc Crzu MD [address] [place] [address] Cardiovascular Disease 09/20/24 documented as of this encounter
--- OUTSIDE RECORDS SUMMARY | 2024-09-26 12:18 | XMS_ITS | Encounter Summary ---
Author Organization [facility] Address [address] [place] [address] Care Team Providers Care Piece Presser Name Role Phone Andrew Erickson MD Primary Care Provider [phone] Sandoval Boggs MD Unavailable +[phone] Jordan Erickson MD Unavailable +[phone] Libertad Bonilla APRN COMPOSITE SCIENCE TEACHER Unavailable +[phone] Sandoval Boggs MD Unavailable +[phone] Erich Gillette MD Unavailable +[phone] Libertad Bonilla APRN COMPOSITE SCIENCE TEACHER Unavailable +[phone] Cheryl Mullen TELEPHONE CLEANER COMPOSITE SCIENCE TEACHER Unavailable + Cheryl Mullen TELEPHONE CLEANER COMPOSITE SCIENCE TEACHER Unavailable + Libertad Bonilla APRN COMPOSITE SCIENCE TEACHER Unavailable +[phone] Essence Wise [facility] Unavailable + [phone] Manish Catherine PA-C Unavailable + [phone] Heidy Harrell DO Unavailable +[phone] Heidy Harrell DO Unavailable +[phone] Essence Wise [facility] Unavailable +[phone] Heidy Harrell DO Unavailable +[phone] Essence Wise [facility] Unavailable +[phone] Essence Wise [facility] Unavailable +[phone] Pablito Paulson MD Unavailable Phuc Cruz MD Unavailable +[phone] Reason for Visit * Reason Comments Medication Refill Encounter Details Date Type Department Care Team (Late st Contact Info) Description 06/30/2020 [facility] [address] [facility] [place] [phone] Cheryl Mullen APRN COMPOSITE SCIENCE TEACHER [address] [place], [place] [id number] Medication Refill Social History Tobacco Use Types Packs/Day Years Used Date Smoking Tobacco: Never Smokeless Tobacco: Never Alcohol Use Standard Drinks/Week Comments Yes 0 (1 standard drink = 0.6 oz pur e alcohol) occas PHQ-2 Answer Date Recorded PHQ-2 Score 2 08/28/2019 Sex and Gender Information Value Date Recorded Sex Assigned at Male 04/09/2020 8:36 AM CDT Legal Sex Male 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 No / Unsure 06/30/2020 7:36 AM ABRADING MACHINE TENDER documented as of this encounter Miscellaneous Notes * Telephone Encounter - Holli Real APRN CNP - 07/01/2020 7:16 PM CST This patient is no longer under our care. [facility] provider only covered the patient whenthey were at a care home or assisted living facility we provide care at. Please direct this refill request to the patient's current provider. Per [facility] records, that may be Andrew Erickson DING MACHINE TENDER documented in this encounter Plan of Treatment Upcoming Encounters Date Type Department Care Team (Late st Contact Info) Description 10/31/2024 7:30 AM CDT Appointment [facility] Specialty Care [address] [facility] [address] [place] [phone] Phuc Cruz MD [address] [place], [place] [address] 11/06/2024 9:00 AM CDT Office Visit [facility] Heart [facility] [address] [facility] [address] [place] [address] Phuc Cruz MD [address] [place] [address] 01/16/2025 12:45 PM CDT Office Visit [facility] Neurology [facility] [address] [place] [phone] Lary Schmitz, TELEPHONE CLEANER COMPOSITE SCIENCE TEACHER [address] [place] [id number] [address] documented as of this encounter Visit Diagnoses Not on filedocumented in this encounter Additional Health Concerns Assessment Noted Time PHQ-9 Depression Total Score: 12 020 6:56 AM ABRADING MACHINE TENDER documented as of this encounter Care Teams Piece Presser Relationship Specialty Start Date End Date Andrew Erickson MD PCP - General Family Practice 11/12/17 Sandoval Boggs MD [address] [place] [address] Clinical Neurophysiology 11/03/18 Jordan Erickson MD [facility] [address] [place] [address] 11/03/18 Libertad Bonilla APRN COMPOSITE SCIENCE TEACHER [address] [place] [address] Assigned PCP 06/08/20 09/06/20 Sandoval Boggs MD [address] [place] [address] Assigned Neuroscience Provider 06/13/20 09/19/21 Erich Gillette MD [address] [address] Assigned Sleep Provider 06/13/20 06/12/24 Libertad Bonilla APRN COMPOSITE SCIENCE TEACHER [facility] [place] [address] Assigned PCP 09/14/20 10/18/20 Cheryl Mullen APRN COMPOSITE SCIENCE TEACHER [address] [place] [address] Assigned PCP 09/07/20 09/13/20 Cheryl Mullen APRN COMPOSITE SCIENCE TEACHER [facility] [place] [address] Assigned PCP 10/19/20 10/25/20 Libertad Bonilla APRN COMPOSITE SCIENCE TEACHER [address] [place] [address] Assigned PCP 10/26/20 11/12/20 Essence Wise, [facility] [address] [place] [address] Pharmacist Pharmacist 06/01/21 Manish Catherine PA-C [address] [address] Assigned Neuroscience Provider 09/20/21 11/14/21 Heidy Harrell DO [address] [place] [address] Neurology 09/28/21 Heidy Harrell DO [address] [place] [address] Assigned Neuroscience Provider 04/17/22 Essence Wise [facility] [address] [place] [address] Assigned MTM Pharmacist 01/16/22 05/07/22 Heidy Harrell DO [address] [place] [address] Assigned Neuroscience Provider 11/15/21 04/16/22 Essence Wise [facility] [address] [place] [address] Assigned MTM Pharmacist 05/19/22 07/01/23 Essence Wise [facility] [address] [place] [address] Assigned MTM Pharmacist 10/14/23 Pablito Paulson MD [address] [place] [address] Assigned Pulmonology Provider 03/13/24 Phuc Cruz MD [address] [place] [address] Cardiovascular Disease 09/20/24 documented as of this encounter
--- OUTSIDE RECORDS SUMMARY | 2024-09-26 12:18 | XMS_ITS | Encounter Summary ---
Author Organization [facility] Address [address] [place] [address] Care Team Providers Care Emt Intermediate Name Role Phone Andrew Erickson MD Primary Care Provider [phone] Sandoval Boggs MD Unavailable [phone] Jordan Erickson MD Unavailable +[phone] Erich Gillette MD Unavailable +[phone] Essence Wise [facility] Unavailable +[phone] Heidy Harrell DO Unavailable +[phone] Heidy Harrell DO Unavailable [phone] Essence Wise [facility] Unavailable +[phone] Heidy Harrell DO Unavailable +[phone] Essence Wise [facility] Unavailable +[phone] Essence Wise [facility] Unavailable +[phone] Pablito Paulson MD Unavailable Phuc Cruz MD Unavailable +[phone] Encounter Details Date Type Department Care Team (Late st Contact Info) Description 11/25/2021 Documentation Only INTERFACED REPORT Unknown, Provider Social [...] AM CDT Legal Sex Male 3:[address] Gender Identity Male 04/09/2020 8:36 AM CDT Sexual Orientation Straight 04/09/2020 8: 36 AM CDT COVID-19 Exposure Response Date Recorded In the last month, have you been in contact with someone who was confirmed or suspected to have Coronavirus / COVID-19? No / Unsure 11/05/2021 7:07 AM CDT documented as of this encounter Plan of Treatment Upcoming Encounters Date Type Department Care Team (Late st Contact Info) Description 10/31/2024 7:30 AM CDT Appointment [facility] Specialty Care [address] [facility] [address] [place] [phone] Phuc Cruz MD [address] [place], [place] [address] 11/06/2024 9:00 AM CDT Office Visit [facility] Heart [facility] [address] [facility] [address] [place] [phone] Phuc Cruz MD [address] [place], [place] [address] 01/16/2025 12:45 PM CDT Office Visit [facility] Neurology Clinic [facility] [address] [place] [address] Lary Schmitz, IRON ERECTOR [facility] [address] [facility] [address] documented as of this encounter Visit Diagnoses Not on filedocumented in this encounter Additional Health Concerns Assessment Noted Time PHQ-9 Depression Total Score: 14 021 7:02 AM CDT documented as of this encounter Care Teams Emt Intermediate Relationship Specialty Start Date End Date Andrew Erickson MD PCP - General Family Practice 11/12/17 Sandoval Boggs MD [address] [place] [address] Clinical Neurophysiology 11/03/18 Jordan Erickson MD [address] [address] 11/03/18 Erich Gillette MD [address] [address] Assigned Sleep Provider 06/13/20 06/12/24 Essence Wise [facility] [address] [place] [address] Pharmacist Pharmacist 06/01/21 Heidy Harrell DO [address] [place] [address] Neurology 09/28/21 Heidy Harrell DO [address] [place] [address] Assigned Neuroscience Provider 04/17/22 Essence Wise [facility] [address] [place] [address] Assigned MTM Pharmacist 01/16/22 05/07/22 Heidy Harrell DO [address] [place] [address] Assigned Neuroscience Provider 11/15/21 04/16/22 Essence Wise [facility] [address] [place] [address] Assigned MTM Pharmacist 05/19/22 07/01/23 Essence Wise [facility] [address] [place] [address] Assigned MTM Pharmacist 10/14/23 Pablito Paulson MD [address] [place] [address] Assigned Pulmonology Provider 03/13/24 Phuc Cruz MD [address] [place] [address] Cardiovascular Disease 09/20/24 documented as of this encounter
--- OUTSIDE RECORDS SUMMARY | 2024-09-26 12:18 | XMS_ITS | Encounter Summary ---
Author Organization [facility] Address [address] [place] [address] Care Team Providers Care Automobile Rental Clerk Name Role Phone Andrew Erickson MD Primary Care Provider [phone] Sandoval Boggs MD Unavailable [phone] Jordan Erickson MD Unavailable [phone] Erich Gillette MD Unavailable +[phone] Essence Wise [facility] Unavailable +[phone] Heidy Harrell DO Unavailable +[phone] Heidy Harrell DO Unavailable +[phone] Essence Wise [facility] Unavailable +[phone] Heidy Harrell DO Unavailable [phone] Essence Wise [facility] Unavailable +[phone] Essence Wise [facility] Unavailable +[phone] Pablito Paulson MD Unavailable Phuc Cruz MD Unavailable +[phone] Encounter Details Date Type Department Care Team (Late st Contact Info) Description 03/01/2022 External Order Results [facility] [address] [place] [address] Outside, Provider Social History Tobacco Use Types [...] AM CDT Legal Sex Male 3:26 AM LEAD PERFORMANCE SUPPORT 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 No / Unsure 03/03/2022 5:28 AM CDT documented as of this encounter Plan of Treatment Upcoming Encounters Date Type Department Care Team (Late st Contact Info) Description 10/31/2024 7:30 AM CDT Appointment [facility] Specialty Care [address] [facility] [address] [place] [phone] Phuc Cruz MD [address] [place], [place] [address] 11/06/2024 9:00 AM CDT Office Visit [facility] [address] [facility] [address] [place] [phone] Phuc Cruz MD [address] [place] [address] 01/16/2025 12:45 PM CDT Office Visit [facility] Neurology Clinic [facility] [address] [place] [address] Lary Schmitz, [facility] [address] [facility] [id number] [place], [place] [address] documented as of this encounter Procedures Procedure Name Priority Date/Time Associated Diagnosis Comments COVID-19 VIRUS (CORONAVIRUS) BY PCR (EXTERNAL RESULT) Routine 03/01/2022 11:59 AM CDT documented in this encounter Results * COVID-19 Virus (Coronavirus) by PCR (External Result) (03/01/2022 11:59 AM CDT) COVID-19 Virus by PCR (External Result) Negative Negative NON-INTERFACE D (ONBASE SCANS) 03/01/2022 11:5 9 AM CDT Narrative NIKOLE PFT - 04/02/2022 2:19 PM CDT Verified by Chloe Fan on 04/02/2022. us Provider Outside LABORATORY Edited Result - Final NIKOLE PFT NON-INTERFACED (ONBASE SCANS) documented in this encounter Visit Diagnoses Not on filedocumented in this encounter Additional Health Concerns Assessment Noted Time PHQ-9 Depression Total Score: 14 021 7:02 AM CDT documented as of this encounter Care Teams Automobile Rental Clerk Relationship Specialty Start Date End Date nAdrew Erickson MD PCP - General Family Practice 11/12/17 Sandoval Boggs MD [address] [place], [place] [address] Clinical Neurophysiology 11/03/18 Jordan Erickson MD [facility] [address] [place] [address] 11/03/18 Erich Gillette MD [address] [address] Assigned Sleep Provider 06/13/20 06/12/24 Essence iWse [facility] [address] [place] [address] Pharmacist Pharmacist 06/01/21 Heidy Harrell DO [address] [place] [address] Neurology 09/28/21 Heidy Harrell DO [address] [place] [address] Assigned Neuroscience Provider 04/17/22 Essence Wise [facility] [address] [place] [address] Assigned MTM Pharmacist 01/16/22 05/07/22 Heidy Harrell DO [address] [place] [address] Assigned Neuroscience Provider 11/15/21 04/16/22 Essence Wise, [facility] [address] [place] [address] Assigned MTM Pharmacist 05/19/22 07/01/23 Essence Wise [facility] [address] [place] [address] Assigned MTM Pharmacist 10/14/23 Pablito Paulson MD [address] [place] [address] Assigned Pulmonology Provider 03/13/24 Phuc Cruz MD [address] [place] [address] Cardiovascular Disease 09/20/24 documented as of this encounter
--- OUTSIDE RECORDS SUMMARY | 2024-09-26 12:18 | XMS_ITS | Encounter Summary ---
Author Organization [facility] Address [address] [place] [address] Care Team Providers Care Comb Capper Name Role Phone Andrew Erickson MD Primary Care Provider [phone] Sandoval Boggs MD Unavailable [phone] Jordan Erickson MD Unavailable +[phone] Cheryl Mullen HEAD HOUSEKEEPER CHILDCARE PROVIDER Unavailable + Libertad Bonilla HEAD HOUSEKEEPER CHILDCARE PROVIDER Unavailable +[phone] Sandoval Boggs MD Unavailable +[phone] Erich Gillette MD Unavailable +[phone] Libertad Bonilla APRN CHILDCARE PROVIDER Unavailable +[phone] Cheryl Mullen HEAD HOUSEKEEPER CHILDCARE PROVIDER Unavailable + Cheryl Mullen HEAD HOUSEKEEPER CHILDCARE PROVIDER Unavailable + Libertad Bonilla HEAD HOUSEKEEPER CHILDCARE PROVIDER Unavailable +[phone] Essence Wise [facility] Unavailable + [phone] Manish Catherine PA-C Unavailable + [phone] Heidy Harrell DO Unavailable +[phone] Heidy Harrell DO Unavailable +[phone] Essence Wise [facility] Unavailable + [phone] Heidy Harrell DO Unavailable +[phone] Essence Wise [facility] Unavailable +[phone] Essence Wise [facility] Unavailable +[phone] Pablito Paulson MD Unavailable Phuc Cruz MD Unavailable +[phone] Encounter Details Date Type Department Care Team (Late st Contact Info) Description 04/23/2020 Orders Only [facility] [address] [place] [address] Chester Venegas MD [facility] [address] [facility] [address] [place], [place] [address] Pre-operative laboratory examination (Primary Dx) Social History [...] AM CDT 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 Gender Identity Male 04/09/2020 8:36 AM [...] Info) Description 10/31/2024 7:30 AM CDT Appointment [facility] Specialty Care [address] [facility] [address] [place] [address] Phuc Cruz MD [address] [place] [address] 11/06/2024 9:00 AM CDT Office Visit [facility] Heart [facility] [address] [facility] [address] [place] [phone] Phuc Cruz MD [address] [place] [address] 01/16/2025 12:45 PM CDT Office Visit [facility] Neurology [facility] [address] [place] [address] Lary Schmitz Yudith, HEAD HOUSEKEEPER CHILDCARE PROVIDER [address] [facility], [place] [address] documented as of this encounter Results * Methicillin Resistant Staph Aureus PCR (04/23/2020 11:55 AM CDT) Specimen Description Nares 04/23/2020 12:33 PM CDT [facility] Methicillin Resist/Sens S. aureus PCR Negative NEG^Negat chilango 04/23/2020 5:56 PM CDT [facility] Comment: MRSA Negative: SA Positive MRSA target DNA not detected, presumed negative for MRSA colonization or the number of bacteria present may be below the limit of detection. Staphylococcus aureus target DNA detected, presumed positive for SA colonization. A positive test does not necessarily indicate the presence of viable organisms. It is, however, presumptive for the presence of SA. This result does not preclude MRSA nasal colonization. FDA approved assay performed using [place] GeneXpert(R) real-time PCR. Nasal structure (body structure) 04/23/2020 11:55 AM CDT 04/23/2020 12:33 PM CDT us Chester Venegas MD LAB - MICRO GENERAL ORDERABLES Final Result [facility] [address] [place] [address] [facility] [address] [place], [place] [address] [phone] documented in this encounter Visit Diagnoses Diagnosis Pre-operative laboratory examination- Primary Pre-procedural laboratory examination documented in this encounter Additional Health Concerns Infection Onset Date Last Indicated Resolved Time Rule Out COVID-19 05/19/2020 05/19/2020 05/21/2020 4:31 PM CDT Assessment Noted Time PHQ-9 Depression Total Score: 12 020 6:56 AM SCIENTIFIC PROGRAMMER ANALYST documented as of this encounter Care Teams Comb Capper Relationship Specialty Start Date End Date Andrew Erickson MD PCP - General Family Practice 11/12/17 Sandoval Boggs MD [address] [place], [place] [address] Clinical Neurophysiology 11/03/18 Jordan Erickson MD [facility] [address] [place] [address] 11/03/18 Cheryl Mullen APRN CHILDCARE PROVIDER [address] [place] [address] Assigned PCP 04/25/20 06/07/20 Libertad Bonilla APRN CHILDCARE PROVIDER [address] [place] [address] Assigned PCP 06/08/20 09/06/20 Sandoval Boggs MD [address] [place] [address] Assigned Neuroscience Provider 06/13/20 09/19/21 Erich Gillette MD [address] [address] Assigned Sleep Provider 06/13/20 06/12/24 Libertad Bonilla APRN CHILDCARE PROVIDER [address] [place] [address] Assigned PCP 09/14/20 10/18/20 Cheryl Mullen APRN CHILDCARE PROVIDER [address] [place] [address] Assigned PCP 09/07/20 09/13/20 Cheryl Mullen APRN CHILDCARE PROVIDER [address] [place] [address] Assigned PCP 10/19/20 10/25/20 Libertad Bonilla APRN CHILDCARE PROVIDER [address] [place] [address] Assigned PCP 10/26/20 11/12/20 Essence Wise [facility] [address] [place] [address] Pharmacist Pharmacist 06/01/21 Manish Catherine PA-C [address] [address] Assigned Neuroscience Provider 09/20/21 11/14/21 Heidy Harrell DO [address] [place] [address] MD Neurology 09/28/21 Heidy Harrell DO [address] [place] [address] Assigned Neuroscience Provider 04/17/22 Essence Wise [facility] [address] [place] [address] Assigned MTM Pharmacist 01/16/22 05/07/22 Heidy Harrell DO [address] [place] [address] Assigned Neuroscience Provider 11/15/21 04/16/22 Essence Wise [facility] [address] [place] [address] Assigned MTM Pharmacist 05/19/22 07/01/23 Essence Wise [facility] [address] [place] [address] Assigned MTM Pharmacist 10/14/23 Pablito Paulson MD [address] [place] [address] Assigned Pulmonology Provider 03/13/24 Phuc Cruz MD [address] [place] [address] Cardiovascular Disease 09/20/24 documented as of this encounter
--- OUTSIDE RECORDS SUMMARY | 2024-09-26 12:18 | XMS_ITS | Encounter Summary ---
Author Organization [facility] Address [address] [place] [address] Care Team Providers Care Wood Stock Blank Handler Name Role Phone Andrew Erickson MD Primary Care Provider [phone] Sandoval Boggs MD Unavailable +[phone] Jordan Erickson MD Unavailable +[phone] Libertad Bonilla APRN ELECTRONIC EQUIPMENT SET UP OPERATOR Unavailable +[phone] Sandoval Boggs MD Unavailable +[phone] Erich Gillette MD Unavailable +[phone] Libertad Bonilla APRN ELECTRONIC EQUIPMENT SET UP OPERATOR Unavailable +[phone] Cheryl Mullen CHERRY PITTER ELECTRONIC EQUIPMENT SET UP OPERATOR Unavailable + Cheryl Mullen CHERRY PITTER ELECTRONIC EQUIPMENT SET UP OPERATOR Unavailable + Libertad Bonilla APRN ELECTRONIC EQUIPMENT SET UP OPERATOR Unavailable +[phone] Essence Wise [facility] Unavailable + [phone] Manish Catherine PA-C Unavailable + [phone] Heidy Harrell DO Unavailable +[phone] Heidy Harrell DO Unavailable +[phone] Essence Wise [facility] Unavailable +[phone] Heidy Harrell DO Unavailable +[phone] Essence Wise [facility] Unavailable +[phone] Essence Wise [facility] Unavailable +[phone] Pablito Paulson MD Unavailable Phuc Cruz MD Unavailable +[phone] Reason for Visit * Reason Comments Medication Refill Encounter Details Date Type Department Care Team (Late st Contact Info) Description 06/09/2020 Refill [facility] [address] [facility] [place] [phone] Cheryl Mullen APRN ELECTRONIC EQUIPMENT SET UP OPERATOR [address] [place] [address] Medication Refill Social History Tobacco Use Types Packs/Day Years Used Date Smoking Tobacco: Never Smokeless Tobacco: Never Alcohol Use Standard Drinks/Week Comments Yes 0 (1 standard drink = 0.6 oz pur e alcohol) occas PHQ-2 Answer Date Recorded PHQ-2 Score 2 08/28/2019 Sex and Gender Information Value Date Recorded Sex Assigned at Male 04/09/2020 8:36 AM CDT 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 No / Unsure 05/20/2020 9:24 AM CDT documented as of this encounter Plan of Treatment Upcoming Encounters Date Type Department Care Team (Late st Contact Info) Description 10/31/2024 7:30 AM CDT Appointment [facility] Specialty Care [address] [place] [address] Phuc Cruz MD [address] [facility] [address] [place] [address] 11/06/2024 9:00 AM CDT Office Visit [facility] [place] [address] [place] [address] Phuc Cruz MD [address] [place] [address] 01/16/2025 12:45 PM CDT Office Visit [facility] Neurology [facility] [address] [place] [phone] Lary Schmitz, CHERRY PITTER ELECTRONIC EQUIPMENT SET UP OPERATOR [address] [id number] [address] documented as of this encounter Visit Diagnoses Diagnosis S/P lumbar fusion Arthrodesis status documented in this encounter Additional Health Concerns Assessment Noted Time PHQ-9 Depression Total Score: 12 020 6:56 AM BANK TELLER documented as of this encounter Care Teams Wood Stock Blank Handler Relationship Specialty Start Date End Date Andrew Erickson MD PCP - General Family Practice 11/12/17 Sandoval Boggs MD [address] [place] [address] Clinical Neurophysiology 11/03/18 Jordan Erickson MD [address] [address] 11/03/18 Libertad Bonilla APRN ELECTRONIC EQUIPMENT SET UP OPERATOR [address] [place] [address] Assigned PCP 06/08/20 09/06/20 Sandoval Boggs MD [address] [place] [address] Assigned Neuroscience Provider 06/13/20 09/19/21 Erich Gillette MD [address] [place] [address] [place] [address] Assigned Sleep Provider 06/13/20 06/12/24 Libertad Bonilla APRN ELECTRONIC EQUIPMENT SET UP OPERATOR [facility] [place] [address] Assigned PCP 09/14/20 10/18/20 Cheryl Mullen APRN ELECTRONIC EQUIPMENT SET UP OPERATOR [address] [place] [address] Assigned PCP 09/07/20 09/13/20 Cheryl Mullen APRN ELECTRONIC EQUIPMENT SET UP OPERATOR [address] [place] [address] Assigned PCP 10/19/20 10/25/20 Libertad Bonilla APRN ELECTRONIC EQUIPMENT SET UP OPERATOR [address] [place] [address] Assigned PCP 10/26/20 11/12/20 Essence Wise [facility] [address] [place] [address] Pharmacist Pharmacist 06/01/21 Manish Catherine PA-C [address] [facility] [place] [address] Assigned Neuroscience Provider 09/20/21 11/14/21 Heidy Harrell DO [address] [place] [address] Neurology 09/28/21 Heidy Harrell DO 9 [place] [address] Assigned Neuroscience Provider 04/17/22 Essence Wise [facility] [address] [place] [address] Assigned MTM Pharmacist 01/16/22 05/07/22 Heidy Harrell DO [address] [place] [address] Assigned Neuroscience Provider 11/15/21 04/16/22 Essence Wise [facility] 9 [place] [address] Assigned MTM Pharmacist 05/19/22 07/01/23 Essence Wise [facility] [address] [place] [address] Assigned MTM Pharmacist 10/14/23 Pablito Paulson MD [address] [place] [address] Assigned Pulmonology Provider 03/13/24 Phuc Cruz MD [address] [place] [address] Cardiovascular Disease 09/20/24 documented as of this encounter
--- OUTSIDE RECORDS SUMMARY | 2024-09-26 12:18 | XMS_ITS | Encounter Summary ---
Author Organization [facility] Address [address] [place] [address] Care Team Providers Care Wearing Apparel Shaker Name Role Phone Andrew Erickson MD Primary Care Provider [phone] Sandoval Boggs MD Unavailable [phone] Jordan Erickson MD Unavailable [phone] Erich Gillette MD Unavailable [phone] Essence Wise [facility] Unavailable +[phone] Heidy Harrell DO Unavailable +[phone] Heidy Harrell DO Unavailable +[phone] Essence Wise [facility] Unavailable +[phone] Heidy Harrell DO Unavailable +[phone] Essence Wise [facility] Unavailable +[phone] Essence Wise [facility] Unavailable +[phone] Pablito Paulson MD Unavailable Phuc Cruz MD Unavailable +[phone] Encounter Details Date Type Department Care Team (Late st Contact Info) Description 12/07/2021 Documentation Only INTERFACED REPORT Unknown, Provider Social [...] AM CDT 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 Gender Identity Male 04/09/2020 8:36 AM CDT Sexual Orientation Straight 04/09/2020 8: 36 AM CDT documented as of this encounter Plan of Treatment Upcoming Encounters Date Type Department Care Team (Late st Contact Info) Description 10/31/2024 7:30 AM CDT Appointment [facility] Specialty Care [address] [place] [phone] Phuc Cruz MD [address] [place], [place] [address] 11/06/2024 9:00 AM CDT Office Visit [facility] Heart [facility] [address] [place] [phone] Phuc Cruz MD [address] [place], [place] [address] 01/16/2025 12:45 PM CDT Office Visit [facility] Neurology Clinic [facility] [address] [place] [address] Lary Schmitz H, NURSERY SUPERVISOR [facility] [address] [place] [address] [address] documented as of this encounter Visit Diagnoses Not on filedocumented in this encounter Additional Health Concerns Assessment Noted Time PHQ-9 Depression Total Score: 14 021 7:02 AM CDT documented as of this encounter Care Teams Wearing Apparel Shaker Relationship Specialty Start Date End Date Andrew Erickson MD PCP - General Family Practice 11/12/17 Sandoval Boggs MD [address] [place] [address] Clinical Neurophysiology 11/03/18 Jordan Erickson MD [address] [address] 11/03/18 Erich Gillette MD [address] [address] Assigned Sleep Provider 06/13/20 06/12/24 Essence Wise [facility] [address] [place] [address] Pharmacist Pharmacist 06/01/21 Heidy Harrell DO [address] [place] [address] Neurology 09/28/21 Heidy Harrell DO [address] [place] [address] Assigned Neuroscience Provider 04/17/22 Essence Wise [facility] [address] [place] [address] Assigned MTM Pharmacist 01/16/22 05/07/22 Heidy Harrell DO [address] [place] [address] Assigned Neuroscience Provider 11/15/21 04/16/22 Essence Wise [facility] [address] [place] [address] Assigned MTM Pharmacist 05/19/22 07/01/23 Essence Wise [facility] 9 [place] [address] Assigned MTM Pharmacist 10/14/23 Pablito Paulson MD [address] [place], [place] [address] Assigned Pulmonology Provider 03/13/24 Phuc Cruz MD [address] [place] [address] Cardiovascular Disease 09/20/24 documented as of this encounter
--- OUTSIDE RECORDS SUMMARY | 2024-09-26 12:18 | XMS_ITS | Encounter Summary ---
Author Organization [facility] Address [address] [place] [address] Care Team Providers Care Technology Professional Name Role Phone Andrew Erickson MD Primary Care Provider [phone] Sandoval Boggs MD Unavailable [phone] Jordan Erickson MD Unavailable +[phone] Cheryl Mullen STILL OPERATOR BRANDY WILDLIFE ECOLOGY PROFESSOR Unavailable + Libertad Bonilla STILL OPERATOR BRANDY WILDLIFE ECOLOGY PROFESSOR Unavailable +08-27 Sandoval Boggs MD Unavailable [phone] Erich Gillette MD Unavailable +[phone] Libertad Bonilla APRN WILDLIFE ECOLOGY PROFESSOR Unavailable +08-27 Cheryl Mullen STILL OPERATOR BRANDY WILDLIFE ECOLOGY PROFESSOR Unavailable + Cheryl Mullen STILL OPERATOR BRANDY WILDLIFE ECOLOGY PROFESSOR Unavailable + Libertad Bonilla STILL OPERATOR BRANDY WILDLIFE ECOLOGY PROFESSOR Unavailable +[phone] Essence Wise [facility] Unavailable + [phone] Manish Catherine PA-C Unavailable + [phone] Heidy Harrell DO Unavailable +[phone] Heidy Harrell DO Unavailable +[phone] Essence Wise [facility] Unavailable + [phone] Heidy Harrell DO Unavailable +[phone] Essence Wise [facility] Unavailable +[phone] Essence Wise [facility] Unavailable +[phone] Pablito Paulson MD Unavailable Phuc Cruz MD Unavailable +[phone] Encounter Details Date Type Department Care Team (Late st Contact Info) Description 02/07/2020 Orders Only [facility] Laboratory [address] [place] [address] Skip Carias MD [facility] [address] [place] [address] Pre-operative laboratory examination (Primary Dx) Social History [...] AM CDT 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 No / Unsure 02/07/2020 11:08 AM CDT documented as of this encounter Plan of Treatment Upcoming Encounters Date Type Department Care Team (Late st Contact Info) Description 10/31/2024 7:30 AM CDT Appointment [facility] Specialty Care [address] [facility] [address] [place] [address] Phuc Cruz MD [address] [place], [place] [address] 11/06/2024 9:00 AM CDT Office Visit [facility] Heart [facility] [address] [facility] [address] [place] [phone] Phuc Cruz MD [address] [place] [address] 01/16/2025 12:45 PM CDT Office Visit [facility] Neurology [facility] [address] [place] [address] Lary Schmitz, STILL OPERATOR BRANDY WILDLIFE ECOLOGY PROFESSOR [address] [facility], [place] [address] documented as of this encounter Results * ABO/Rh type and screen (02/12/2020 11:13 AM CDT) ABO A 02/12/2020 12:24 PM CDT [facility] RH(D) Pos [facility] Antibody Screen Neg 02/12/2020 12:24 PM CDT [facility] Test Valid Only At [facility] 02/12/2020 12:48 PM CDT [facility] Specimen Expires 02/15/2020 02/12/2020 12:48 PM CDT [facility] Blood specimen (specimen) 02/12/2020 11:13 AM CDT 02/12/2020 11:14 AM CDT us Skip Carias MD LAB - BLOOD BANK TEST ORDER Dixie l Result [facility] [place] [address], [facility] [phone] documented in this encounter Visit Diagnoses Diagnosis Pre-operative laboratory examination- Primary Pre-procedural laboratory examination documented in this encounter Additional Health Concerns Infection Onset Date Last Indicated Resolved Time Rule Out COVID-19 02/11/2020 02/11/2020 02/11/2020 9:11 PM CDT Rule Out COVID-19 05/19/2020 05/19/2020 05/21/2020 4:31 PM CDT Assessment Noted Time PHQ-9 Depression Total Score: 12 020 6:56 AM REHABILITATION PSYCHOLOGIST documented as of this encounter Care Teams Technology Professional Relationship Specialty Start Date End Date Andrew Erickson MD PCP - General Family Practice 11/12/17 Sandoval Boggs MD [address] [place] [address] Clinical Neurophysiology 11/03/18 Jordan Erickson MD [facility] [address] [place] [address] 11/03/18 Cheryl Mullen APRN WILDLIFE ECOLOGY PROFESSOR [address] [place] [address] Assigned PCP 04/25/20 06/07/20 Libertad Bonilla APRN WILDLIFE ECOLOGY PROFESSOR [address] [place] [address] Assigned PCP 06/08/20 09/06/20 Sandoval Boggs MD [address] [place] [address] Assigned Neuroscience Provider 06/13/20 09/19/21 Erich Gillette MD [address] [facility] [address] [address] Assigned Sleep Provider 06/13/20 06/12/24 Libertad Bonilla APRN WILDLIFE ECOLOGY PROFESSOR [address] [place] [address] Assigned PCP 09/14/20 10/18/20 Cheryl Mullen APRN WILDLIFE ECOLOGY PROFESSOR [address] [place] [address] Assigned PCP 09/07/20 09/13/20 Cheryl Mullen APRN WILDLIFE ECOLOGY PROFESSOR [address] [place] [address] Assigned PCP 10/19/20 10/25/20 Libertad Bonilla APRN WILDLIFE ECOLOGY PROFESSOR [address] [place] [address] Assigned PCP 10/26/20 11/12/20 Essence Wise [facility] [address] [place] [address] Pharmacist Pharmacist 06/01/21 Manish Catherine PA-C [address] [facility] [address] [address] Assigned Neuroscience Provider 09/20/21 11/14/21 Heidy Harrell DO [address] [place] [address] MD Neurology 09/28/21 Heidy Harrell DO [address] [place] [address] Assigned Neuroscience Provider 04/17/22 Essence Wise [facility] [address] [place] [address] [place] [address] Assigned MTM Pharmacist 01/16/22 05/07/22 Heidy Harrell DO [address] [place] [address] Assigned Neuroscience Provider 11/15/21 04/16/22 Essence Wise [facility] [address] [place] [address] Assigned MTM Pharmacist 05/19/22 07/01/23 Essence Wise [facility] [address] [place] [address] Assigned MTM Pharmacist 10/14/23 Pablito Paulson MD [address] [place] [address] Assigned Pulmonology Provider 03/13/24 Phuc Cruz MD [address] [place] [address] Cardiovascular Disease 09/20/24 documented as of this encounter
--- OUTSIDE RECORDS SUMMARY | 2024-09-26 12:18 | XMS_ITS | Encounter Summary ---
Author Organization [facility] Address [address] [place] [address] Care Team Providers Care Exam Proctor Name Role Phone Andrew Erickson MD Primary Care Provider [phone] Sandoval Boggs MD Unavailable [phone] Jordan Erickson MD Unavailable +[phone] Cheryl Mullen MORTGAGE ANALYST COMPUTER REPAIR INSTRUCTOR Unavailable + Libertad Bonilla MORTGAGE ANALYST COMPUTER REPAIR INSTRUCTOR Unavailable +08-27 Sandoval Boggs MD Unavailable +[phone] Erich Gillette MD Unavailable +[phone] Libertad Bonilla APRN COMPUTER REPAIR INSTRUCTOR Unavailable +08-27 Cheryl Mullen MORTGAGE ANALYST COMPUTER REPAIR INSTRUCTOR Unavailable + Cheryl Mullen MORTGAGE ANALYST COMPUTER REPAIR INSTRUCTOR Unavailable + Libertad Bonilla MORTGAGE ANALYST COMPUTER REPAIR INSTRUCTOR Unavailable +08-27 Essence Wise [facility] Unavailable + [phone] Manish Catherine PA-C Unavailable + [phone] Heidy Harrell DO Unavailable +[phone] Heidy Harrell DO Unavailable +[phone] Essence Wise [facility] Unavailable + [phone] Heidy Harrell DO Unavailable +[phone] Essence Wise [facility] Unavailable +[phone] Essence Wise [facility] Unavailable +[phone] Pablito Paulson MD Unavailable Phuc Cruz MD Unavailable +[phone] Encounter Details Date Type Department Care Team (Late st Contact Info) Description 02/07/2020 Orders Only [facility] [address] [place] [address] Skip Carias MD [facility] [address] [place] [address] Pre-operative laboratory examination (Primary Dx) [...] AM CDT Legal Sex Male 3:26 AM SIGNAL WIRER Gender Identity Male 04/09/2020 8:36 AM CDT [...] Info) Description 10/31/2024 7:30 AM CDT Appointment [facility] Specialty Care [address] [facility] [address] [place] [phone] Phuc Cruz MD [address] [place], [place] [address] 11/06/2024 9:00 AM CDT Office Visit [facility] Heart [facility] [address] [facility] [address] [place] [phone] Phuc Cruz MD [address] [place] [address] 01/16/2025 12:45 PM CDT Office Visit [facility] Neurology [facility] [address] [place] [address] Lary Schmitz, EVERETTE COMPUTER REPAIR INSTRUCTOR [address] [facility], [place] [address] documented as of this encounter Results * Creatinine (02/12/2020 11:13 AM CDT) Creatinine 0.82 0.66 - 1.25 mg/dL 02/12/2020 11:40 AM CDT [facility] GFR Estimate 89 >60 mL/min/{1. 73_m2} 02/12/2020 11:40 AM CDT [facility] Comment: Non GFR Calc Starting 08/08/2018, serum creatinine based estimated GFR (eGFR) will be calculated using the Chronic Kidney Disease Epidemiology Collaboration (CKD-EPI) equation. GFR Estimate If Black >90 >60 mL/min/{1. 73_m2} 02/12/2020 11:40 AM CDT [facility] Comment: GFR Calc Starting 08/08/2018, serum creatinine based estimated GFR (eGFR) will be calculated using the Chronic Kidney Disease Epidemiology Collaboration (CKD-EPI) equation. Blood specimen (specimen) 02/12/2020 11:13 AM CDT 02/12/2020 11:14 AM CDT us Skip Carias MD LAB - BLOOD ORDERABLES Final Res ult [facility] [address] [place] [address], [facility] [phone] * (ABNORMAL) Potassium (02/12/2020 11:13 AM CDT) Potassium 2.8(L) 3.4 - 5.3 mmol/L 02/12/2020 11:33 AM CDT [facility] Blood specimen (specimen) 02/12/2020 11:13 AM CDT 02/12/2020 11:14 AM CDT us Skip Carias MD LAB - BLOOD ORDERABLES Final Res ult Performing Organization Address [facility] de Phone Number [facility] [address] [phone] * (ABNORMAL) Hemoglobin (02/12/2020 11:13 AM CDT) Hemoglobin 12.9(L) 13.3 - 17.7 g/dL 02/12/2020 11:19 AM CDT [facility] Blood specimen (specimen) 02/12/2020 11:13 AM CDT 02/12/2020 11:14 AM CDT us Skip Carias MD LAB - BLOOD ORDERABLES Final Res ult Performing Organization Address [facility] de Phone Number [facility] [address] [phone] documented in this encounter Visit Diagnoses Diagnosis Pre-operative laboratory examination- Primary Pre-procedural laboratory examination documented in this encounter Additional Health Concerns Infection Onset Date Last Indicated Resolved Time Rule Out COVID-19 02/11/2020 02/11/2020 02/11/2020 9:11 PM CDT Rule Out COVID-19 05/19/2020 05/19/2020 05/21/2020 4:31 PM CDT Assessment Noted Time PHQ-9 Depression Total Score: 12 020 6:56 AM SIGNAL WIRER documented as of this encounter Care Teams Exam Proctor Relationship Specialty Start Date End Date Andrew Erickson MD PCP - General Family Practice 11/12/17 Sandoval Boggs MD [address] [place] [address] Clinical Neurophysiology 11/03/18 Jordan Erickson MD [address] [address] 11/03/18 Cheryl Mullen APRN COMPUTER REPAIR INSTRUCTOR [address] [place] [address] Assigned PCP 04/25/20 06/07/20 Libertad Bonilla APRN COMPUTER REPAIR INSTRUCTOR [facility] [place] [address] Assigned PCP 06/08/20 09/06/20 Sandoval Boggs MD [address] [place] [address] Assigned Neuroscience Provider 06/13/20 09/19/21 Erich Gillette MD [address] [address] Assigned Sleep Provider 06/13/20 06/12/24 Libertad Bonilla APRN COMPUTER REPAIR INSTRUCTOR [address] [place] [address] Assigned PCP 09/14/20 10/18/20 Cheryl Mullen APRN COMPUTER REPAIR INSTRUCTOR [address] [place] [address] Assigned PCP 09/07/20 09/13/20 Cheryl Mullen APRN COMPUTER REPAIR INSTRUCTOR [address] [place] [address] Assigned PCP 10/19/20 10/25/20 Libertad Bonilla APRN COMPUTER REPAIR INSTRUCTOR [address] [place] [address] Assigned PCP 10/26/20 11/12/20 Essence Wise [facility] [address] [place] [address] Pharmacist Pharmacist 06/01/21 Manish Catherine PA-C [address] [address] Assigned Neuroscience Provider 09/20/21 11/14/21 Heidy Harrell DO [address] [place] [address] MD Neurology 09/28/21 Heidy Harrell DO [address] [place] [address] Assigned Neuroscience Provider 04/17/22 Essence Wise [facility] [address] [place] [address] Assigned MTM Pharmacist 01/16/22 05/07/22 Heidy Harrell DO [address] [place] [address] Assigned Neuroscience Provider 11/15/21 04/16/22 Essence Wise [facility] [address] [place] [address] Assigned MTM Pharmacist 05/19/22 07/01/23 Essence Wise [facility] [address] [place] [address] Assigned MTM Pharmacist 10/14/23 Pablito Paulson MD [address] [place] [id number] Assigned Pulmonology Provider 03/13/24 Phuc Cruz MD [address] [place] [address] Cardiovascular Disease 09/20/24 documented as of this encounter
--- OUTSIDE RECORDS SUMMARY | 2024-09-26 12:18 | XMS_ITS | Encounter Summary ---
Author Organization [place] Address [address] [place] [address] Care Team Providers Care Handyman Name Role Phone Andrew Erickson MD Primary Care Provider [phone] Sandoval Boggs MD Unavailable [phone] Jordan Erickson MD Unavailable +[phone] Erich Gillette MD Unavailable [phone] Essence Wise [facility] Unavailable +[phone] Heidy Harrell DO Unavailable +[phone] Heidy Harrell DO Unavailable +[phone] Essence Wise [facility] Unavailable +[phone] Essence Wise [facility] Unavailable +[phone] Pablito Paulson MD Unavailable Phuc Cruz MD Unavailable +[phone] Encounter Details Date Type Department Care Team (Late st Contact Info) Description 05/11/2022 MyC Medical Advice Initial Department Stephanie Guajardo Social History Tobacco Use Types Packs/Day Years Used Date Smoking Tobacco: Former Cigarettes Q uit: 1982 Smokeless Tobacco: Never Alcohol Use Standard Drinks/Week Comments Yes 15 (1 standard drink = 0.6 oz pure alcohol) (3 drinks 4-5 times/week, usually vodka) PHQ-2 Answer Date Recorded PHQ-2 Score 0 05/13/2022 Sex and Gender Information Value Date Recorded Sex Assigned at Male 04/09/2020 8:36 AM CDT 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 No / Unsure 05/13/2022 6:47 AM CDT documented as of this encounter Plan of Treatment Upcoming Encounters Date Type Department Care Team (Late st Contact Info) Description 10/31/2024 7:30 AM CDT Appointment [facility] [address] [place] [address] Phuc Cruz MD [address] [place], [place] [address] 11/06/2024 9:00 AM CDT Office [facility] Heart [facility] [address] [place] [address] Phuc Cruz MD [address] [place], [place] [address] 01/16/2025 12:45 PM CDT Office Visit [facility] Neurology Clinic [facility] [address] [place] [address] Lary Schmitz H, MEMBER SERVICE SPECIALIST [facility] [address] [facility] [id number] [place], [place] [address] documented as of this encounter Visit Diagnoses Not on filedocumented in this encounter Additional Health Concerns Assessment Noted Time PHQ-9 Depression Total Score: 14 021 7:02 AM CDT documented as of this encounter Care Teams Handyman Relationship Specialty Start Date End Date Andrew Erickson MD PCP - General Family Practice 11/12/17 Sandoval Boggs MD [address] [place] [address] Clinical Neurophysiology 11/03/18 Jordan Erickson MD [address] [address] 11/03/18 Erich Gillette MD [address] [address] Assigned Sleep Provider 06/13/20 06/12/24 Essence Wise [facility] [address] [place] [address] Pharmacist Pharmacist 06/01/21 Heidy Harrell DO [address] [place] [address] Neurology 09/28/21 Heidy Harrell DO [address] [place] [address] Assigned Neuroscience Provider 04/17/22 Essence Wise [facility] [address] [place] [address] Assigned MTM Pharmacist 05/19/22 07/01/23 Essence Wise [facility] [address] [place] [address] Assigned MTM Pharmacist 10/14/23 Pablito Paulson MD [address] [place], [place] [address] Assigned Pulmonology Provider 03/13/24 Phuc Cruz MD [address] [place], [place] [address] Cardiovascular Disease 09/20/24 documented as of this encounter
--- OUTSIDE RECORDS SUMMARY | 2024-09-26 12:19 | XMS_ITS | Encounter Summary ---
Author Organization [place] Address [address] [place] [address] Care Team Providers Care Bowling Ball Assembler Name Role Phone Andrew Erickson MD Primary Care Provider [phone] Sandoval Boggs MD Unavailable [phone] Jordan Erickson MD Unavailable +[phone] Cheryl Mullen DENTAL THERAPIST BUSINESS RECORDS MANAGER Unavailable + Libertad Bonilla DENTAL THERAPIST BUSINESS RECORDS MANAGER Unavailable +[phone] Sandoval Boggs MD Unavailable [phone] Erich Gillette MD Unavailable +[phone] Libertad Bonilla APRN BUSINESS RECORDS MANAGER Unavailable +[phone] Cheryl Mullen DENTAL THERAPIST BUSINESS RECORDS MANAGER Unavailable + Cheryl Mullen DENTAL THERAPIST BUSINESS RECORDS MANAGER Unavailable + Libertad Bonilla DENTAL THERAPIST BUSINESS RECORDS MANAGER Unavailable +[phone] Essence Wise [facility] Unavailable + [phone] Manish Catherine PA-C Unavailable + [phone] Heidy Harrell DO Unavailable +[phone] Heidy Harrell DO Unavailable +[phone] Essence Wise [facility] Unavailable + [phone] Heidy Harrell DO Unavailable +[phone] Essence Wise [facility] Unavailable +[phone] Essence Wise [facility] Unavailable +[phone] Pablito Paulson MD Unavailable Phuc Cruz MD Unavailable [phone] Reason for Visit * Reason Comments Medication Refill Encounter Details Date Type Department Care Team (Late st Contact Info) Description 06/03/[facility] [address] [place] [address] Cheryl Mullen APRN BUSINESS RECORDS MANAGER [address] [place] [address] Medication Refill Social History Tobacco Use Types Packs/Day Years Used Date Smoking Tobacco: Never Smokeless Tobacco: Never Alcohol Use Standard Drinks/Week Comments Yes 0 (1 standard drink = 0.6 oz pur e alcohol) occas PHQ-2 Answer Date Recorded PHQ-2 Score 2 08/28/2019 Sex and Gender Information Value Date Recorded Sex Assigned at Male 04/09/2020 8:36 AM CDT 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 No / Unsure 05/20/2020 9:24 AM CDT documented as of this encounter Miscellaneous Notes * Telephone Encounter - Holli Real APRN BUSINESS RECORDS MANAGER - 06/04/2020 7:59 AM CDT This patient is no longer under our care. [facility] provider only covered the patient whenthey were at a [facility] or assisted living facility we provide care at. Please direct this refill request to the patient's current provider. Per [facility] records, that may be Andrew Erickson documented in this encounter Plan of Treatment Upcoming Encounters Date Type Department Care Team (Late st Contact Info) Description 10/31/2024 7:30 AM CDT Appointment [facility] Specialty Care [address] [facility] [address] [place] [address] Phuc Cruz MD [address] [place], [place] [address] 11/06/2024 9:00 AM CDT Office Visit [facility] Heart [facility] [address] [facility] [address] [place] [address] Phuc Cruz MD [address] [place], [place] [address] 01/16/2025 12:45 PM CDT Office Visit [facility] Neurology [facility] [address] [place] [address] Lary Schmitz APRN BUSINESS RECORDS MANAGER [address] [place] [address] [place] [address] documented as of this encounter Visit Diagnoses Diagnosis S/P lumbar fusion Arthrodesis status documented in this encounter Additional Health Concerns Assessment Noted Time PHQ-9 Depression Total Score: 12 020 6:56 AM INSURANCE PROCESSING CLERK documented as of this encounter Care Teams Bowling Ball Assembler Relationship Specialty Start Date End Date Andrew Erickson MD PCP - General Family Practice 11/12/17 Sandoval Boggs MD [address] [place] [address] Clinical Neurophysiology 11/03/18 Jordan Erickson MD [facility] [address] [place] [address] 11/03/18 Cheryl Mullen APRN BUSINESS RECORDS MANAGER [address] [place] [address] Assigned PCP 04/25/20 06/07/20 Libertad Bonilla APRN BUSINESS RECORDS MANAGER [address] [place] [address] Assigned PCP 06/08/20 09/06/20 Sandoval Boggs MD [address] [place] [address] 875745 Assigned Neuroscience Provider 06/13/20 09/19/21 Erich Gillette MD [address] [address] Assigned Sleep Provider 06/13/20 06/12/24 Libertad Bonilla APRN BUSINESS RECORDS MANAGER [address] [place] [address] Assigned PCP 09/14/20 10/18/20 Cheryl Mullen APRN BUSINESS RECORDS MANAGER [facility] [place] [address] Assigned PCP 09/07/20 09/13/20 Cheryl Mullen APRN BUSINESS RECORDS MANAGER [address] [place] [address] Assigned PCP 2/28/21 3/6/21 Libertad Bonilla, DENTAL THERAPIST BUSINESS RECORDS MANAGER [address] [place] [address] Assigned PCP 10/26/20 11/12/20 Essence Wise [facility] [address] [place] [address] Pharmacist Pharmacist 06/01/21 Manish Catherine PA-C [address] [address] Assigned Neuroscience Provider 09/20/21 11/14/21 Heidy Harrell DO [address] [place] [address] MD Neurology 09/28/21 Heidy Harrell DO [address] [place] [address] Assigned Neuroscience Provider 04/17/22 Essence Wise [facility] [address] [place] [address] Assigned MTM Pharmacist 01/16/22 05/07/22 Heidy Harrell DO [address] [place] [address] Assigned Neuroscience Provider 11/15/21 04/16/22 Essence Wise [facility] [address] [place] [address] Assigned MTM Pharmacist 05/19/22 07/01/23 Essence Wise, [facility] [address] [place] [address] Assigned MTM Pharmacist 10/14/23 Pablito Paulson MD [address] [place], [place] [address] Assigned Pulmonology Provider 03/13/24 Phuc Cruz MD [address] [place], [place] [address] Cardiovascular Disease 09/20/24 documented as of this encounter
--- OUTSIDE RECORDS SUMMARY | 2024-09-26 12:19 | XMS_ITS | Encounter Summary ---
Author Organization [place] Address [address] [place] [address] Care Team Providers Care Pleater Name Role Phone Andrew Erickson MD Primary Care Provider [phone] Sandoval Boggs MD Unavailable [phone] Jordan Erickson MD Unavailable [phone] Erich Gillette MD Unavailable +[phone] Essence Wise [facility] Unavailable +[phone] Heidy Harrell DO Unavailable [phone] Heidy Harrell DO Unavailable [phone] Essence Wise [facility] Unavailable [phone] Pablito Paulson MD Unavailable Phuc Cruz MD Unavailable +[phone] Reason for Visit * Rehab Therapy Integrated Services (Routine: Next available opening) - Closed Specialty Diagnoses / Procedures Referred By Ranjeet gleason Referred To Contact Diagnoses Parkinson's disease without dyskinesia or fluctuating manifestations (H) [address] [address] Phone: tel: Referral ID Status Reason Start Date Expiration Date Visits Re quested Visits Authorized [id number] Closed 09/23/2023 08/21/2024 365 365 Encounter Details Date Type Department Care Team (Late st Contact Info) Description 11/25/2023 1:15 PM CDT Therapy Visit [facility] [place] [address] [place] [address] Heidy Harrell, [address] [place], [place] [address] Rosalba Salinas, PT [address] [facility] [place] [address] Parkinson's disease without dyskinesia or fluctuating manifestations (H) (Primary Dx) Social History Tobacco Use Types [...] AM CDT 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 Gender Identity Male 04/09/2020 8:36 AM CDT Sexual Orientation Straight 04/09/2020 8: 36 AM CDT documented as of this encounter Plan of Treatment Upcoming Encounters Date Type Department Care Team (Late st Contact Info) Description 10/31/2024 7:30 AM CDT Appointment [facility] Specialty Care [address] [facility] [address] [place] [address] Phuc Cruz MD [address] [place] [address] 11/06/2024 9:00 AM CDT Office Visit [facility] [place] [address] [facility] [address] [place] [address] Phuc Cruz MD [address] [place] [address] 01/16/2025 12:45 PM CDT Office Visit [facility] Neurology Clinic [facility] [address] [place] [address] Lary Schmitz, EVERETTE MANAGER SPA [address] [facility] [id number] [address] documented as of this encounter Visit Diagnoses Diagnosis Parkinson's disease without dyskinesia or fluctuating manifestations (H)- Primary documented in this encounter Additional Health Concerns Assessment Noted Time PHQ-9 Depression Total Score: 14 021 7:02 AM CDT documented as of this encounter Care Teams Pleater Relationship Specialty Start Date End Date Andrew Erickson MD PCP - General Family Practice 11/12/17 Sandoval Boggs MD [address] [place] [address] Clinical Neurophysiology 11/03/18 Jordan Erickson MD [facility] [address] [place] [address] 11/03/18 Erich Gillette MD [address] [address] Assigned Sleep Provider 06/13/20 06/12/24 Essence Wise, [facility] [address] [place] [address] Pharmacist Pharmacist 06/01/21 Heidy Harrell DO [address] [place] [address] Neurology 09/28/21 Heidy Harrell DO [address] [place], [place] [address] Assigned Neuroscience Provider 04/17/22 Essence Wise, [facility] [address] [place] [address] [phone] Assigned [place] Pharmacist 10/14/23 Pablito Paulson MD [address] [place] [address] 682085 Assigned Pulmonology Provider 03/13/24 Phuc Cruz MD [address] [place] [address] Cardiovascular Disease 09/20/24 documented as of this encounter
--- OUTSIDE RECORDS SUMMARY | 2024-09-26 12:19 | XMS_ITS | Encounter Summary ---
Author Organization [place] Address [address] [facility] [place] [address] Care Team Providers Care Production Department Supervisor Name Role Phone Andrew Erickson MD Primary Care Provider [phone] Sandoval Boggs MD Unavailable [phone] Jordan Erickson MD Unavailable [phone] Erich Gillette MD Unavailable [phone] Essence Wise [facility] Unavailable +[phone] Heidy Harrell DO Unavailable +[phone] Heidy Harrell DO Unavailable +[phone] Essence Wise [facility] Unavailable +[phone] Pablito Paulson MD Unavailable Phuc Cruz MD Unavailable +[phone] Encounter Details Date Type Department Care Team (Late st Contact Info) Description 11/08/2023 [facility] Neurology Clinic [address] [place] [address] Maxine Manning, RN Social History Tobacco Use Types Packs/Day [...] AM CDT 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 Gender Identity Male 04/09/2020 8:36 AM CDT Sexual Orientation Straight 04/09/2020 8: 36 AM CDT documented as of this encounter Plan of Treatment Upcoming Encounters Date Type Department Care Team (Late st Contact Info) Description 10/31/2024 7:30 AM CDT Appointment [facility] Specialty Care [address] [facility] [address] [place] [address] Phuc Cruz MD [address] [place] [address] 11/06/2024 9:00 AM CDT Office Visit [facility] [address] [facility] [address] [place] [address] Phuc Cruz MD [address] [place], [place] [address] 01/16/2025 12:45 PM CDT Office Visit [facility] Neurology [facility] [address] [place] [address] Lary Schmitz H, [facility] [employer] [address] [place] [address] [address] documented as of this encounter Visit Diagnoses Not on filedocumented in this encounter Additional Health Concerns Assessment Noted Time PHQ-9 Depression Total Score: 14 021 7:02 AM CDT documented as of this encounter Care Teams Production Department Supervisor Relationship Specialty Start Date End Date Andrew Erickson MD PCP - General Family Practice 11/12/17 Sandoval Boggs MD [address] [place] [address] Clinical Neurophysiology 11/03/18 Jordan Erickson MD [facility] [address] [place] [address] 11/03/18 Erich Gillette MD [address] [place] [address] Assigned Sleep Provider 06/13/20 06/12/24 Essence Wise [facility] [address] [place] [address] Pharmacist Pharmacist 06/01/21 Heidy Harrell DO [address] [place] [address] Neurology 09/28/21 Heidy Harrell DO [address] [place] [address] Assigned Neuroscience Provider 04/17/22 Essence Wise [facility] [address] [place] [address] Assigned MTM Pharmacist 10/14/23 Pablito Paulson MD [address] [place] [address] Assigned Pulmonology Provider 03/13/24 Phuc Cruz MD [address] [place] [address] Cardiovascular Disease 09/20/24 documented as of this encounter
--- OUTSIDE RECORDS SUMMARY | 2024-09-26 12:19 | XMS_ITS | Encounter Summary ---
Author Organization [place] Address [address] [facility] [place] [address] Care Team Providers Care Campus Administrator Name Role Phone Andrew Erickson MD Primary Care Provider [phone] Sandoval Boggs MD Unavailable [phone] Jordan Erickson MD Unavailable [phone] Erich Gillette MD Unavailable [phone] Essence Wise [facility] Unavailable +[phone] Heidy Harrell DO Unavailable +[phone] Heidy Harrell DO Unavailable +[phone] Essence Wise [facility] Unavailable +[phone] Pablito Paulson MD Unavailable Phuc Cruz MD Unavailable +[phone] Encounter Details Date Type Department Care Team (Late st Contact Info) Description 11/14/2023 [facility] [address] [address] Essence Wise, [address] [address] Social History Tobacco Use Types [...] AM CDT 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 Gender Identity Male 04/09/2020 8:36 AM CDT Sexual Orientation Straight 04/09/2020 8: 36 AM CDT documented as of this encounter Plan of Treatment Upcoming Encounters Date Type Department Care Team (Late st Contact Info) Description 10/31/2024 7:30 AM CDT Appointment [facility] Specialty Care [address] [facility] [address] [place] [address] Phuc Cruz MD [address] [place], [place] [address] 11/06/2024 9:00 AM CDT Office Visit [facility] [address] [facility] [address] [place] [address] Phuc Cruz MD [address] [place], [place] [address] 01/16/2025 12:45 PM CDT Office Visit [facility] Neurology Clinic [facility] [address] [place] [address] Lary Schmitz, [facility] [address] [id number] [address] documented as of this encounter Visit Diagnoses Not on filedocumented in this encounter Additional Health Concerns Assessment Noted Time PHQ-9 Depression Total Score: 14 021 7:02 AM CDT documented as of this encounter Care Teams Campus Administrator Relationship Specialty Start Date End Date Andrew Erickson MD PCP - General Family Practice 11/12/17 Sandoval Boggs MD [address] [place] [address] Clinical Neurophysiology 11/03/18 Jordan Erickson MD [address] [address] 11/03/18 Erihc Gillette MD [address] [address] Assigned Sleep Provider 06/13/20 06/12/24 Essence Wise [facility] [address] [place] [address] Pharmacist Pharmacist 06/01/21 Heidy Harrell DO [address] [place] [address] Neurology 09/28/21 Heidy Harrell DO [address] [place] [address] Assigned Neuroscience Provider 04/17/22 Essence Wise [facility] [address] [place] [address] Assigned MTM Pharmacist 10/14/23 Pablito Paulson MD [address] [place] [address] Assigned Pulmonology Provider 03/13/24 Phuc Cruz MD [address] [place] [address] Cardiovascular Disease 09/20/24 documented as of this encounter
[2024-09-26 12:23] LABS: Slide Review Reflex No
[2024-09-26 12:26] LABS: Troponin, Point-of-Care* 0.01 ng/ml (0.01-0.04)
[2024-09-26 12:27] LABS: Albumin* 4.1 g/dL (3.3-5.0); Chloride* 98 mmol/L (96-114)
[2024-09-26 12:28] LABS: Potassium* 4.6 mmol/L (3.6-5.1); Sodium* 133 mmol/L (135-149)
[2024-09-26] MEDS: 0.9 % SODIUM CHLORIDE 500 ML 500 ML IV (12:29)
[2024-09-26 12:30] LABS: Alkaline Phosphatase* 31 U/L (40-150); Anion Gap 9 mEq/L (7-15); Aspartate Amino Transferase* 25 U/L (12-35); Bilirubin Total* 0.8 mg/dL (0.1-1.5); Carbon Dioxide* 26 mmol/L (20-32); Creatinine* 1.4 mg/dL (0.5-1.5); Est. Creatinine Clearance* 54.49; Estimated Glomerular Filt Rate 52 ml/min; Total Protein* 6.6 g/dL (6.0-8.3)
[2024-09-26 12:31] LABS: Alanine Aminotransferase* 6 U/L (4-50); Blood Urea Nitrogen* 30 mg/dL (7-30); Calcium* 9.2 mg/dL (8.4-10.6); Glucose* 108 mg/dL (60-115); Magnesium* 1.9 mg/dL (1.5-2.6)
[2024-09-26 12:43] LABS: C Reactive Protein* < 0.5 mg/dL (0.5-1.0); NT Pro B Type NatriureticPept* 227 pg/mL; Troponin I* < 0.01 ng/mL (0.01-0.04)
[2024-09-26 12:57] LABS: D Dimer Quantitative* 0.39 ug/ml (0.00-0.50)
[2024-09-26 13:12] LABS: PCR FLU A Negative PCR FLU A (Negative); PCR FLU B Negative PCR FLU B (Negative); PCR RSV Negative PCR RSV (Negative); SARS PCR* Negative SARS-CoV-2 (Negative)
== END 2024-09-26 14:50 | disposition home or self-care (01) ==
PROVIDERS: Emergency Provider Family Medicine; PCP Family Medicine
DX: G20.A1 Parkinson's disease without dyskinesia, without mention of fluctuations (principal); I95.1 Orthostatic hypotension
CPT/HCPCS: 36415; 71045; 80053; 82803; 83605; 83735; 83880; 84484; 85025; 85379; 86140; 87631; 93005; 94761; 99284; 99285; J7030

== ENCOUNTER 2025-02-08 09:08 | Outpatient (CLI) | payer MEDICARE, BC, SELFPAY ==
--- OUTSIDE RECORDS SUMMARY | 2019-08-06 07:00 | XMS_ITS | Continuity of Care Document ---
Author Organization [facility] Address [address] [place] [address] Phone Care Team Providers Care Houseperson Name Role Phone Phuc Xiao MD Unavailable Unavailable Allergies, Adverse Reactions, Alerts Substance Reaction Status Criticality No Known Allergies Active No Inform ation Medications Medication Instructions Dosage Effective Dates (start - stop) Status Comments amlodipine 5 mg tablet take 1 tablet by oral route every day 5 MG - Active carbidopa ER 25 mg-levodopa 100 mg tablet,extended release take 1 tablet by oral route 2 times every day 1.00 tablet - Active hydrocodone 5 mg-acetaminophen 325 mg tablet take 1 tablet by oral route every 6 hours as needed for pain 1.00 tablet - Active Multiple Vitamin-Minerals tablet - Active OMEGA-3 ORAL - Active ASPIRIN (unknown strength) take 1 (81mg) tablet by oral route every day Not Available - Active citalopram 40 mg tablet take 1 tablet by oral route every day 40 MG - Active fenofibrate 54 mg tablet take 1 tablet by oral route every day 54 MG - Active furosemide 20 mg tablet take 1 tablet by oral route every day 20 MG - Active pravastatin 40 mg tablet take 1 tablet by oral route every day 40 MG - Active bupropion HCl SR 150 mg tablet,12 hr sustained-release take 1 tablet by oral route every day 150 MG - Active buspirone 5 mg tablet take 1 tablet by oral route 2 times every day 5 MG - Active donepezil 10 mg tablet take 1 tablet by oral route every day in the evening 10 MG - Active clonazepam 1 mg tablet take 1 tablet by oral route 2 times every day 1 MG - Active allopurinol 300 mg tablet take 1 tablet by oral route every day 300 MG - Active melatonin 3 mg tablet - Active fludrocortisone 0.1 mg tablet take 1 tablet by oral route every day 0.1 MG - Active Aleve 220 mg tablet take 1 tablet by oral route every 12 hours as needed 220 MG - Active ibuprofen 200 mg tablet take 2 tablet by oral route every 4 days as needed with food 400 MG - Active Procedures Procedure Date RF Lumbar/Sacral Single Level 9 RF Lumbar/Sacral Addtl Level Moderate Sedation (older Than 5 Years) D RF Lumbar/Sacral Single Level 9 RF Lumbar/Sacral Addt'l Level 9 Change Control for Diagnosis(s) 019 Change Control for Procedure(s): 2018 RF Lumbar/Sacral Single Level 9 RF Lumbar/Sacral Addt'l Level 9 Methylprednisolone Acetate-40 9 Change Control for Diagnosis(s) 019 Change Control for Pharmaceuticals Change Control for Procedure(s): 2018 CC Control For Rem/Void Of Mutually Excl usive Proc RF Lumbar/Sacral Single Level 9 RF Lumbar/Sacral Addtl Level RF Lumbar/Sacral Single Level 9 RF Lumbar/Sacral Addtl Level RF Lumbar/Sacral Single Level 9 RF Lumbar/Sacral Addt'l Level 9 Methylprednisolone Acetate-40 9 Est Pt Eval 15 Min Est Pt Eval 15 Min RF Lumbar/Sacral Addt'l Level 8 RF Lumbar/Sacral Single Level 8 Moderate Sedation (older Than 5 Years) S ep Moderate Sedation (older Than 5 Years) A ddl 15 Min RF Lumbar/Sacral Single Level 8 RF Lumbar/Sacral Single Level 8 RF Lumbar/Sacral Addt'l Level 8 RF Lumbar/Sacral Addt'l Level 8 RF Lumbar/Sacral Addt'l Level 8 RF Lumbar/Sacral Addt'l Level 8 RF Lumbar/Sacral Single Level 8 RF Lumbar/Sacral Addtl Level RF Lumbar/Sacral Addtl Level Moderate Sedation (older Than 5 Years) S Moderate Sedation (older Than 5 Years) A ddl 15 Min Neuromuscular Re-education Therapeutic Exercise Therapeutic Activities Neuromuscular Re-education Therapeutic Exercise Therapeutic Exercise Neuromuscular Re-education Psychiatric Diagnostic Evaluation Therapeutic Exercise Neuromuscular Re-education Est Pt Eval 25 Min No Show Visit Fee Inj Anes Facet Jt; Lumb/sac-1st Level Inj Anes Facet Jt; Lumb/sac-3rd Level Inj Anes Facet Jt; Lumb/sac-2nd Level Inj Anes Facet Jt; Lumb/sac-1st Level Inj Anes Facet Jt; Lumb/sac-1st Level Inj Anes Facet Jt; Lumb/sac-2nd Level Inj Anes Facet Jt; Lumb/sac-2nd Level Inj Anes Facet Jt; Lumb/sac-3rd Level Inj Anes Facet Jt; Lumb/sac-3rd Level Inj Anes Facet Jt; Lumb/sac-1st Level Inj Anes Facet Jt; Lumb/sac-2nd Level Inj Anes Facet Jt; Lumb/sac-3rd Level PT Eval - Low Complexity Therapeutic Exercise Mobility: Walking & Moving Around, Goal Mobility: Walking & Moving Around, Graham nt Inj Anes Facet Jt; Lumb/sac-2nd Level Inj Anes Facet Jt; Lumb/sac-1st Level Ju Inj Anes Facet Jt; Lumb/sac-1st Level Ju Inj Anes Facet Jt; Lumb/sac-1st Level Ju Inj Anes Facet Jt; Lumb/sac-2nd Level Ju Inj Anes Facet Jt; Lumb/sac-2nd Level Ju Inj Anes Facet Jt; Lumb/sac-3rd Level Ju Inj Anes Facet Jt; Lumb/sac-3rd Level Ju Inj Anes Facet Jt; Lumb/sac-1st Level Ju Inj Anes Facet Jt; Lumb/sac-2nd Level Inj Anes Facet Jt; Lumb/sac-3rd Level Est Pt Eval 25 Min Inj Anes Epidur; Lumb/sac 1 Le 18 Inj Anes Epidur; Lumb/sac-ea A 18 Inj Anes Epidur; Lumb/sac 1 Le 18 Inj Anes Epidur; Lumb/sac-ea A 18 New Pt Eval 45 Min Inj Anes Epidur; Lumb/sac 1 Le 18 Trans Epid Lumbosac each addl 8 Advance Directives Directive Yes / No Effective Date File Name No Information Encounters Encounter Description Practice Location Reason(s) For Visit Diagnoses Date Provider Providers Copied on Encounter [facility], [address], [place], [place], [address], tel:[phone] [facility] No Information 9 Dameon Friend. [address], [address], [place], [place], [address], [place]. tel:[phone] Referring Provider: Phuc Xiao, [address], [place], [address] . tel:[phone] [facility], [address], [place], [address], [place] tel:[phone] [facility] [place] Spondylosis w/o myelopathy or radiculopathy, lumbar regionOther intervertebral disc degeneration, lumbar regionSpondyls w/o myelopathy or radiculopathy, lumbosacr regionLow back painSpondylosi s w/o myelopathy or radiculopathy, lumbar regionSpondyls w/o myelopathy or radiculopathy, lumbosacr regionOther intervertebral disc degeneration, lumbar regionLow back pain [facility]. [address], [place], [place], [address], [place]. tel:[phone] Referring Provider: Phuc Xiao, [address], [place], [address] . tel:[phone] [facility], [address], [address], [place], [address], [place] tel:[phone] [facility] back pain (chief complaint) Low back painOther intervertebral disc degeneration, lumbar regionSpondyls w/o myelopathy or radiculopathy, lumbosacr regionSpondylo sis w/o myelopathy or radiculopathy, lumbar regionSpondylo sis w/o myelopathy or radiculopathy, lumbar regionSpondyls w/o myelopathy or radiculopathy, lumbosacr regionOther intervertebral disc degeneration, lumbar regionLow back pain [facility]. [address], [place], [place], [address], [place]. tel:[phone] Referring Provider: Tr Bryant, [address], [place], [address] . tel:[phone] [facility], [facility], [address], [place], [place], [address], [place] tel:[phone] [facility] No Information 9 Camelia Armando. [address], [place], [place], [address], [place]. tel:[phone] Referring Provider: Tr Bryant, [address], [place], [address] . tel:[phone] [facility], [facility], [address], [place], [place], [address], [place] tel:[phone] [facility] No Information 9 Camelia Armando. [address], [place], [place], [address], [place]. tel:[phone] Referring Provider: Andrew Erickson MD C, [address], [place], [address]. tel:[phone] [facility], [address], [place], [address], [place] tel:[phone] [facility] back pain (chief complaint) Spondylosis w/o myelopathy or radiculopathy, lumbar regionSpondyls w/o myelopathy or radiculopathy, lumbosacr regionOther intervertebral disc degeneration, lumbar regionLow back painSpondylosi s w/o myelopathy or radiculopathy, lumbar regionSpondyls w/o myelopathy or radiculopathy, lumbosacr regionOther intervertebral disc degeneration, lumbar regionLow back pain 9 Camelia Armando. [address], [place], [place], [address], [place]. tel:[phone] Est Pt Eval 15 Min [facility], [facility], [address], [place], [place], [address], [place] tel:[phone] [facility] back pain (chief complaint) Intvrt disc disorders w radiculopathy, lumbosacral regionOther intervertebral disc degeneration, lumbar regionLow back painSpondyls w/o myelopathy or radiculopathy, lumbosacr region Nov- 9 Mei Rougui. [address], [place], [address], [place]. tel:[phone] Referring Provider: Andrew Ruff, [address], [place], [address]. tel:[phone] Est Pt Eval 15 Min [facility], [facility], [address], [place], [place], [address], [place] tel:[phone] [facility] back pain (chief complaint) Spondyls w/o myelopathy or radiculopathy, lumbosacr region 8 Dinega Gelane. [address], [place], [address], [place]. tel:[phone] Referring Provider: Andrew Ruff, [address], [place], [address]. tel:[phone] [facility], [address], [place], [place], [address], [place] tel:[phone] [facility] Low back pain 8 Chirag Grimm. [address], [place], [place], [address], [place]. tel:[phone] Referring Provider: Andrew Ruff, [address], [place], [address]. tel:[phone] [facility] [place], [address], [place], [address], [place] tel:[phone] [facility] back pain (chief complaint) Spondylosis w/o myelopathy or radiculopathy, lumbar regionLow back painOther intervertebral disc degeneration, lumbar regionSpondyls w/o myelopathy or radiculopathy, lumbosacr regionSpondylo sis w/o myelopathy or radiculopathy, lumbar regionSpondyls w/o myelopathy or radiculopathy, lumbosacr regionOther intervertebral disc degeneration, lumbar regionLow back pain Apr- 8 [facility]. [address], [place], [place], [address], [place]. tel:[phone] Referring Provider: Martina FRIED, [address], [place], [address] . tel:[phone] [facility], [address], [place], [place], [address], [place] tel:[phone] [facility] No Information Apr- 8 Yuval Mack. [address], [place], [place], [address], [place]. tel:[phone] Referring Provider: Martina FRIED, [address], [place], [address] . tel:[phone] [facility], [address], [place], [place], [address], [place] tel:[phone] [facility] [address] Low back painLow back painLow back painLow back pain 8 Schiltz Belia. [address], [place], [address], [place]. tel:[phone] Referring Provider: Andrew Erickson MD C, [address], [place], [address]. tel:[phone] [facility], [address], [place], [place], [address], [place] tel:[phone] [facility] [address] Low back pain 8 Schiltz Belia. [address], [place], [address], [place]. tel:[phone] Referring Provider: Andrew Ruff, [address], [place], [address]. tel:[phone] [facility], [address], [place], [place], [address], [place] tel:[phone] [facility] [address] Low back pain Feb- 0-201 8 Schiltz Belia. [address], [place], [address], [place]. tel:[phone] Referring Provider: Andrew Ruff, [address], [place], [address]. tel:[phone] [facility], [address], [place], [place], [address], [place] tel:[phone] [facility] [address] Low back pain 3-201 8 Schiltz Belia. [address], [place], [address], [place]. tel:[phone] Referring Provider: Andrew Ruff, [address], [place], [address]. tel:[phone] [facility], [address], [place], [place], [address], [place] tel:[phone] [place] [address] No Information 9 8 Shadi Daniel. [address], [address], [place], [place], [address], [place]. tel:[phone] Referring Provider: Andrew Ruff, [address], [place], [address]. tel:[phone] [facility], [address], [place], [place], [address], [place] tel:[phone] [facility] Low back pain Feb- 8 Sch[address]ia[address], [place], [address], [place]. tel:[phone] Referring Provider: Andrew Ruff, [address], [place], [address]. tel:[phone] Est Pt Eval 25 Min [facility], [facility], [address], [place], [place], [address], [place] tel:[phone] [facility] back pain (chief complaint) Spinal stenosis, lumbar region with neurogenic claudicationOt her intervertebral disc degeneration, lumbar regionSpondyls w/o myelopathy or radiculopathy, lumbosacr region Jan- 8 Dinega Gelane. [address], [place], [address], [place]. tel:[phone] Referring Provider: Andrew Ruff, [address], [place], [address]. tel:[phone] [facility], [address], [place], [place], [address], [place] tel:[phone] [facility] [address] No Information [address] Sch[address], [place], [address], [place]. tel:[phone] Referring Provider: Andrew Ruff, [address], [place], [address]. tel:[phone] [facility], [address], [place], [address], [place] tel:[phone] [facility] back pain (chief complaint) Spondylosis w/o myelopathy or radiculopathy, lumbar regionSpondyls w/o myelopathy or radiculopathy, lumbosacr regionOther intervertebral disc degeneration, lumbar regionLow back painSpondylosi s w/o myelopathy or radiculopathy, lumbar regionSpondyls w/o myelopathy or radiculopathy, lumbosacr regionOther intervertebral disc degeneration, lumbar regionLow back pain 8 [facility]. [address], [place], [place], [address], [place]. tel:[phone] Referring Provider: Tr Bryant, [address], [place], [address] . tel:[phone] [facility], [facility], [address], [place], [place], [address], [place] tel:[phone] [facility] No Information 8 Camelia Armando. [address], [place], [place], [address], [place]. tel:[phone] Referring Provider: Tr Bryant, [address], [place], [address] . tel:[phone] [facility], [facility], [address], [place], [place], [address], [place] tel:[phone] [facility] 7[address] Low back pain 8 Chirag Grimm. [address], [place], [place], [address], [place]. tel:[phone] Referring Provider: Andrew Erickson MD C, [address], [place], [address]. tel:[phone] [facility], [address], [place], [address], [place] tel:[phone] [facility] back pain (chief complaint) Spondylosis w/o myelopathy or radiculopathy, lumbar regionSpondylo sis w/o myelopathy or radiculopathy, lumbosacral regionOther intervertebral disc degeneration, lumbar regionLow back painSpondylosi s w/o myelopathy or radiculopathy, lumbar regionSpondyls w/o myelopathy or radiculopathy, lumbosacr regionOther intervertebral disc degeneration, lumbar regionLow back pain 8 [facility]. [address], [place], [place], [address], [place]. tel:[phone] Referring Provider: Tr Bryant, [address], [place], [address] . tel:[phone] [facility], [address], [place], [place], [address], [place] tel:[phone] [facility] No Information 8 Camelia Armando. [address], [place], [place], [address], [place]. tel:[phone] Referring Provider: Tr Bryant, [address], [place], [address] . tel:[phone] Est Pt Eval 25 Min [facility], [address], [place], [place], [address], [place] tel:[phone] [facility] back pain (chief complaint) Other intervertebral disc degeneration, lumbar regionIntvrt disc disorders w radiculopathy, lumbosacral regionSpondylo sis w/o myelopathy or radiculopathy, lumbar region 8 Dinega Gelane. [address], [place], [address], [place]. tel:[phone] Referring Provider: Andrew Erickson MD C, [address], [place], [address]. tel:[phone] [facility], [address], [place], [address], [place] tel:[phone] [facility] back pain (chief complaint) Other intervertebral disc degeneration, lumbar regionIntvrt disc disorders w radiculopathy, lumbosacral regionIntvrt disc disorders w radiculopathy, lumbosacral regionOther intervertebral disc degeneration, lumbar region [facility]. [address], [place], [place], [address], [place]. tel:[phone] Referring Provider: Phuc Xiao, [address], [place], [address] . tel:[phone] New Pt Eval 45 Min [facility], [address], [place], [place], [address], [place] tel:[phone] [facility] back pain (chief complaint) Conn tiss and disc stenos of intvrt foramin of lumbar regionOther intervertebral disc degeneration, lumbar regionSpinal Stenosis, lumbar region with neurogenic claudication 8 No Information Referring Provider: Andrew Erickson MD C, [address], [place], [address]. tel:[phone] [facility], [address], [place], [place], [address], [place] tel:[phone] [facility] No Information 8 Dameon Friend. [address], [place], [place], [address], [place]. tel:[phone] Referring Provider: Phuc Xiao, [address], [place], [address] . 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 back pain Severity level i s 9. The problem is fluctuating. It occurs persistently. Location of pain is lower back.There is no radiation of pain. The patient describes the pain as sharp. Symptoms are aggravated by bending, daily activities, lifting and lying/rest. Symptoms are relieved by exercise, ice and stretching. back pain Severity level i s 0. The problem is improving. It occurs rarely. Location of pain is middle back and lower back.The patient denies aggravating factors. Symptoms are relieved by his procedure. back pain Severity level i s moderate. The problem is stable. It occurs persistently. Location of pain is lower back. back pain Severity level i s 5. The problem is fluctuating. It occurs persistently. Location of pain is lower back.The patient describes the pain as burning and stabbing. Symptoms are aggravated by standing. Symptoms are relieved by lying down. back pain Severity level i s moderate-severe. The problem is fluctuating. Location of pain is lower back. Pain is radiated to the left thigh and right thigh.The patient describes the pain as burning and sharp. back pain The problem is f luctuating. It occurs persistently. Location of pain is lower back.The patient describes the pain as stabbing. back pain Severity level i s moderate-severe. The problem is worsening. It occurs persistently. Location of pain is lower back. Pain is radiated to the left ankle, right ankle, left calf, right calf, left foot, right foot, left thigh and right thigh.The patient describes the pain as stabbing. Symptoms are aggravated by sitting. Symptoms are relieved by ice. back pain Severity level i s moderate-severe. The problem is stable. It occurs persistently. Location of pain is lower back. Pain is radiated to the back.The patient describes the pain as burning and sharp. back pain Severity level i s 4. The problem is fluctuating. It occurs persistently. Location of pain is lower back. Pain is radiated to the right thigh.The patient describes the pain as deep, localized, numbness, piercing and shooting. Symptoms are aggravated by ascending stairs, bending, changing positions, daily activities, descending stairs, extension, flexion, lifting, lying/rest and rolling over in bed. Symptoms are relieved by exercise, ice, lying down, massage, physical therapy, stretching, rest and sitting. Functional Status Date Functional Assessmen t No Information Instructions Date Instruction Additional Infor mation No Information Assessments Type Assessment Date No Information Patient Care Teams Name Effective Dates (start - stop) Status Members No Information
--- OUTSIDE RECORDS SUMMARY | 2019-08-06 07:00 | XMS_ITS | Continuity of Care Document ---
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 Name Role Phone Phuc Xiao MD Unavailable [...] route every day Not Available - Active ibuprofen 200 mg tablet take 2 tablet by oral route every 4 days as needed with food 400 MG - Active Aleve 220 mg tablet take 1 tablet by oral route every 12 hours as needed 220 MG - Active fludrocortisone 0.1 mg tablet take 1 tablet by oral route every day 0.1 MG - Active melatonin 3 mg tablet - Active allopurinol 300 mg tablet take 1 tablet by oral route every day 300 MG - Active clonazepam 1 mg tablet take 1 tablet by oral route 2 times every day 1 MG - Active donepezil 10 mg tablet take 1 tablet by oral route every day in the evening 10 MG - Active buspirone 5 mg tablet take 1 tablet by oral route 2 times every day 5 MG - Active bupropion HCl SR 150 mg tablet,12 hr sustained-release take 1 tablet by oral route every day 150 MG - Active pravastatin 40 mg tablet take 1 tablet by oral route every day 40 MG - Active furosemide 20 mg tablet take 1 tablet by oral route every day 20 MG - Active fenofibrate 54 mg tablet take 1 tablet by oral route every day 54 MG - Active citalopram 40 mg tablet take 1 tablet by oral route every day 40 MG - Active Procedures Procedure Date RF [...] Date Provider Providers Copied on Encounter [facility], [address], [place], [place], [address], tel:[phone] [facility] No Information 9 Dameon Friend. [address], [address], [place], [place], [address], [place]. tel:[phone] Referring Provider: Phuc Xiao, [address], [place], [address] . tel:[phone] [facility], [address], [place], [address], [place] tel:[phone] [facility] Spondylosis w/o myelopathy or radiculopathy, lumbar regionSpondyls w/o myelopathy or radiculopathy, lumbosacr regionOther intervertebral disc degeneration, lumbar regionLow back painSpondylosi s w/o myelopathy or radiculopathy, lumbar regionSpondyls w/o myelopathy or radiculopathy, lumbosacr regionOther intervertebral disc degeneration, lumbar regionLow back pain [facility]. [address], [place], [place], [address], [place]. tel:[phone] Referring Provider: Phuc Xiao, [address], [place], [address] . tel:[phone] [facility], [address], [address], [place], [address], [place] tel:[phone] [facility] back pain (chief complaint) Spondylosis w/o myelopathy or radiculopathy, lumbar regionLow back painOther intervertebral disc degeneration, lumbar regionSpondyls w/o myelopathy or radiculopathy, lumbosacr regionSpondylo sis w/o myelopathy or radiculopathy, lumbar regionSpondyls w/o myelopathy or radiculopathy, lumbosacr regionOther intervertebral disc degeneration, lumbar regionLow back pain 9 [facility]. [address], [place], [place], [address], [place]. tel:[phone] Referring Provider: Tr Bryant, [address], [place], [address] . tel:[phone] [facility], [facility], [address], [place], [place], [address], [place] tel:[phone] [facility] No Information 9 Camelia Armando. [address], [place], [place], [address], [place]. tel:[phone] Referring Provider: Tr Bryant, [address], [place], [address] . tel:[phone] , [address], [place], [place], [address], [place] tel:[phone] [facility] No Information 9 Camelia Armando. [address], [place], [place], [address], [place]. tel:[phone] Referring Provider: Andrew Erickson MD C, [address], [place], [address]. tel:[phone] [facility], [address], [place], [address], [place] tel:[phone] [facility] back pain (chief complaint) Spondylosis w/o myelopathy or radiculopathy, lumbar regionSpondyls w/o myelopathy or radiculopathy, lumbosacr regionOther intervertebral disc degeneration, lumbar regionLow back painSpondylosi s w/o myelopathy or radiculopathy, lumbar regionSpondyls w/o myelopathy or radiculopathy, lumbosacr regionOther intervertebral disc degeneration, lumbar regionLow back pain 9 Camelia Armando. [address], [place], [place], [address], [place]. tel:[phone] Est Pt Eval 15 Min , [address], [place], [place], [address], [place] tel:[phone] [facility] back pain (chief complaint) Intvrt disc disorders w radiculopathy, lumbosacral regionOther intervertebral disc degeneration, lumbar regionLow back painSpondyls w/o myelopathy or radiculopathy, lumbosacr region Nov- 9 Mei Rougui. [address], [place], [address], [place]. tel:[phone] Referring Provider: Andrew Ruff, [address], [place], [address]. tel:[phone] Est Pt Eval 15 Min [facility], [facility], [address], [place], [place], [address], [place] tel:[phone] [facility] back pain (chief complaint) Spondyls w/o myelopathy or radiculopathy, lumbosacr region 8 Dinega Gelane. [address], [place], [address], [place]. tel:[phone] Referring Provider: Andrew Ruff, [address], [place], [address]. tel:[phone] , [address], [place], [place], [address], [place] tel:[phone] [facility] Low back pain 8 Chirag Grimm. [address], [place], [place], [address], [place]. tel:[phone] Referring Provider: Andrew Ruff, [address], [place], [address]. tel:[phone] [facility], [address], [place], [address], [place] tel:[phone] [facility] back pain (chief complaint) Low back painOther intervertebral disc degeneration, lumbar regionSpondyls w/o myelopathy or radiculopathy, lumbosacr regionSpondylo sis w/o myelopathy or radiculopathy, lumbar regionSpondylo sis w/o myelopathy or radiculopathy, lumbar regionSpondyls w/o myelopathy or radiculopathy, lumbosacr regionOther intervertebral disc degeneration, lumbar regionLow back pain Sep- 8 [facility]. [address], [place], [place], [address], [place]. tel:[phone] Referring Provider: Martina FRIED, [address], [place], [address] . tel:[phone] [facility], [address], [place], [place], [address], [place] tel:[phone] [facility] No Information Apr- 8 Yuval Mack. [address], [place], [place], [address], [place]. tel:[phone] Referring Provider: Martina FRIED, [address], [place], [address] . tel:[phone] [facility], [address], [place], [place], [address], [place] tel:[phone] [facility] [address] Low back painLow back painLow back painLow back pain 8 Schiltz Belia. [address], [place], [address], [place]. tel:[phone] Referring Provider: Andrew Erickson MD C, [address], [place], [address]. tel:[phone] [facility], [address], [place], [place], [address], [place] tel:[phone] [facility] [address] Low back pain 8 Schiltz Belia. [address], [place], [address], [place]. tel:[phone] Referring Provider: Andrew Ruff, [address], [place], [address]. tel:[phone] [facility], [address], [place], [place], [address], [place] tel:[phone] [facility] [address] Low back pain Feb- 0-201 8 Schiltz Belia. [address], [place], [address], [place]. tel:[phone] Referring Provider: Andrew Ruff, [address], [place], [address]. tel:[phone] [facility], [address], [place], [place], [address], [place] tel:[phone] [facility] [address] Low back pain 3-201 8 Schiltz Belia. [address], [place], [address], [place]. tel:[phone] Referring Provider: Andrew Ruff, [address], [place], [address]. tel:[phone] [facility], [address], [place], [place], [address], [place] tel:[phone] [facility] No Information 9 8 Shadi Daniel. [address], [place], [place], [address], [place]. tel:[phone] Referring Provider: Andrew Ruff, [address], [place], [address]. tel:[phone] [facility], [address], [place], [place], [address], [place] tel:[phone] [facility] Low back pain Feb- 8 Schiltz Belia. [address], [place], [address], [place]. tel:[phone] Referring Provider: Andrew Ruff, [address], [place], [address]. tel:[phone] Est Pt Eval 25 Min [facility], [facility], [address], [place], [place], [address], [place] tel:[phone] [facility] back pain (chief complaint) Other intervertebral disc degeneration, lumbar regionSpondyls w/o myelopathy or radiculopathy, lumbosacr regionSpinal stenosis, lumbar region with neurogenic claudication 8 Dinega Gelane. [address], [place], [address], [place]. tel:[phone] Referring Provider: Andrew Ruff, [address], [place], [address]. tel:[phone] , [address], [place], [place], [address], [place] tel:[phone] [facility] 7[address] No Information 8 Schiltz Belia. [address], [place], [address], [place]. tel:[phone] Referring Provider: Andrew Ruff, [address], [place], [address]. tel:[phone] [facility], [address], [place], [address], [place] tel:[phone] [facility] back pain (chief complaint) Spondylosis w/o myelopathy or radiculopathy, lumbar regionSpondyls w/o myelopathy or radiculopathy, lumbosacr regionOther intervertebral disc degeneration, lumbar regionLow back painSpondylosi s w/o myelopathy or radiculopathy, lumbar regionSpondyls w/o myelopathy or radiculopathy, lumbosacr regionOther intervertebral disc degeneration, lumbar regionLow back pain 8 [facility]. [address], [place], [place], [address], [place]. tel:[phone] Referring Provider: Tr Bryant, [address], [place], [address] . tel:[phone] [facility], [facility], [address], [place], [place], [address], [place] tel:[phone] [facility] No Information 8 Camelia Armando. [address], [place], [place], [address], [place]. tel:[phone] Referring Provider: Tr Bryant, [address], [place], [address] . tel:[phone] [facility], [facility], [address], [place], [place], [address], [place] tel:[phone] [facility] 7390 Low back pain 8 Chirag Grimm. [address], [place], [place], [address], [place]. tel:[phone] Referring Provider: Andrew Erickson MD C, [address], [place], [address]. tel:[phone] [facility], [address], [place], [address], [place] tel:[phone] [facility] back pain (chief complaint) Spondylosis w/o myelopathy or radiculopathy, lumbar regionSpondylo sis w/o myelopathy or radiculopathy, lumbosacral regionOther intervertebral disc degeneration, lumbar regionLow back painSpondylosi s w/o myelopathy or radiculopathy, lumbar regionSpondyls w/o myelopathy or radiculopathy, lumbosacr regionOther intervertebral disc degeneration, lumbar regionLow back pain 8 [facility]. [address], [place], [place], [address], [place]. tel:[phone] Referring Provider: Tr Bryant, [address], [place], [address] . tel:[phone] , [address], [place], [place], [address], [place] tel:[phone] [facility] No Information 8 Camelia Armando. [address], [place], [place], [address], [place]. tel:[phone] Referring Provider: Tr Bryant, [address], [place], [address] . tel:[phone] Est Pt Eval 25 Min , [address], [place], [place], [address], [place] tel:[phone] [facility] back pain (chief complaint) Other intervertebral disc degeneration, lumbar regionIntvrt disc disorders w radiculopathy, lumbosacral regionSpondylo sis w/o myelopathy or radiculopathy, lumbar region 8 Dinega Gelane. [address], [place], [address], [place]. tel:[phone] Referring Provider: Andrew Erickson MD C, [address], [place], [address]. tel:[phone] [facility], [address], [place], [address], [place] tel:[phone] [facility] back pain (chief complaint) Other intervertebral disc degeneration, lumbar regionIntvrt disc disorders w radiculopathy, lumbosacral regionIntvrt disc disorders w radiculopathy, lumbosacral regionOther intervertebral disc degeneration, lumbar region [facility]. [address], [place], [place], [address], [place]. tel:[phone] Referring Provider: Phuc Xiao, [address], [place], [address] . tel:[phone] New Pt Eval 45 Min [facility], [facility], [address], [place], [place], [address], [place] tel:[phone] [facility] back pain (chief complaint) Conn tiss and disc stenos of intvrt foramin of lumbar regionOther intervertebral disc degeneration, lumbar regionSpinal Stenosis, lumbar region with neurogenic claudication 8 No Information Referring Provider: Andrew Erickson MD C, [address], [place], [address]. tel:[phone] [facility], [address], [place], [place], [address], [place] tel:[phone] [facility] No Information 8 Dameon Friend. [address], [place], [place], [address], [place]. tel:[phone] Referring Provider: Phuc Xiao, [address], [place], [address] . tel:[phone] Family History Family Member Type Diagnosis Age At Onset Father Problem (finding) coronary arterioscleros is Sister Problem (finding) Cancer Father Problem (finding) hypertension Sister Problem (finding) neuropathy Mother Problem (finding) coronary arterioscleros is Mother Problem (finding) malignant neoplasm of k [place] Father Problem (finding) Cancer Mother Problem (finding) Diabetes Father Problem (finding) Diabetes Payers Payer name Insurance type Covered republican ID Johana limon(s) Medicare Part B MB [id number] [employer] Commercial BL [id number] Social History Type Description Quantity Date Captured [...]
--- OUTSIDE RECORDS SUMMARY | 2021-07-21 05:31 | XMS_ITS | Continuity of Care Document ---
Author Organization [facility] Address [address] [address] [place] [address] Phone Care Team Providers Care Soap Tender Name Role Phone Aleta Akers CRNA Unavailable Unavail able Allergies, Adverse Reactions, Alerts Substance Reaction Status Criticality No Known Allergies Active No Inform ation Medications Medication Instructions Dosage Effective Dates (start - stop) Status Comments allopurinol 300 mg tablet take 1 tablet by oral route every day 300 MG - Active amlodipine 5 mg tablet take 1 tablet by oral route every day 5 MG - Active Creon 12,000-38,000-60,00 0 unit capsule,delayed release take 2 capsule by oral route 3 times every day with meals and 1 capsule with each snack 2.00 capsule - Active buspirone 10 mg tablet take 1 tablet by oral route 2 times every day 10 MG - Active carbidopa 25 mg-levodopa 100 mg tablet take 2 tablet by oral route 3 times every day 2 tablet - Active citalopram 20 mg tablet take 1 tablet by oral route every day 20 MG - Active clonazepam 1 mg tablet take 1 tablet by oral route every day 1 tablet - Active duloxetine 60 mg capsule,delayed release take 1 capsule by oral route every day 60 MG - Active pravastatin 40 mg tablet take 1 tablet by oral route every day 40 MG - Active Procedures Procedure Date Colonoscopy Flex; W/remov Les- 21 Colonoscopy Flex; W/bx 1/mx Level Iv-surg Path Gross/micro 21 Offic/outpt E&m Estab Low-mod 3 Offic/outpt E&m Estab Low-mod 3 Offic/outpt E&m Estab Low-mod 3 Offic/outpt E&m Estab Low-mod 3 Ugi Endo; W/us Guid Asp/bx Ercp; Dx W/wo Specmn (apr) 13 Advance Directives Directive Yes / No Effective Date File Name No Information Encounters Encounter Description Practice Location Reason(s) For Visit Diagnoses Date Provider Providers Copied on Encounter [facility], [address] [address], [place], [place], [address], [place] tel:[phone] [facility] No Information 1 Oswald River. [facility] [address], [id number], [place]. tel:[phone] Referring Provider: Gio Smyth, [address] [address], [place], [address] . tel:[phone] [facility], [address] [address], [place], [place], [address], [place] tel:[phone] [facility] Diarrhea, unspecified typeHemorrhoid s, internalColore ctal polypsBenign neoplasm of sigmoid colonBenign neoplasm of ascending colonDiarrhea, unspecifiedOth er hemorrhoids 1 Nash Powers. [facility] [address], [place], [address], [place]. tel:[phone] Referring Provider: Andrew Erickson MD C, [address] [place], [address]. tel:[phone] [facility], [address] [address], [facility], [place], [address], [place] tel:[phone] [facility] No Information 1 Parul Fine. [address] [place] [address], [id number], [place]. tel:[phone] Offic/outpt E&m Estab Low-mod [facility], [address] [address], [place], [address], [place] tel:[phone] [facility] No Information 3 Zita Hagan. [address] [place] [address], [id number], [place]. tel:[phone] Referring Provider: Andrew Ruff, [address] [place] [address], [address]. tel:[phone] Offic/outpt E&m Estab Low-mod [facility], [address] [address], [place], [address], [place] tel:[phone] [facility] No Information 3 Zita Hagan. [address] [place] [address], [id number], [place]. tel:[phone] Referring Provider: Andrew Ruff, [address] [place] [address], [address]. tel:[phone] Offic/outpt E&m Estab Low-mod [facility], [address] [address], [place], [address], [place] tel:[phone] [facility] No Information 3 Zita Hagan. [address] [place] [address], [id number], [place]. tel:[phone] Referring Provider: Andrew Ruff, [address] [place] [address], [address]. tel:[phone] Offic/outpt E&m Estab Low-mod [facility], [address] [address], [place], [address], [place] tel:[phone] [facility] No Information 3 Zita Hagan. [address], [id number], [place]. tel:[phone] Referring Provider: Andrew Ruff, [address] [place] [address], [address]. tel:[phone] [facility], [address] [address], [facility] [place], [address], [place] tel:[phone] [facility] No Information 3 Zita Hagan. [address] [facility] [address], [place], [address], [place]. tel:[phone] Referring Provider: Andrew Ruff, [address] [place], [address]. tel:[phone] Family History Family Member Type Diagnosis Age At Onset No Information Immunizations Vaccine Date Status Comments SARS-COV-2 (COVID-19) vaccin e, mRNA, spike protein, LNP, preservative free, 30 mcg/0.3mL dose administered Note: [facility] bi-direct ional interface ; Source: Other Registry influenza, high-dose seasona l, quadrivalent, .7mL dose, preservative free administered Note: [facility] bi-direct ional interface ; Source: Other Registry SARS-COV-2 (COVID-19) vaccin e, mRNA, spike protein, LNP, preservative free, 30 mcg/0.3mL dose administered Note: [facility] bi-direct ional interface ; Source: Other Registry SARS-COV-2 (COVID-19) vaccin e, mRNA, spike protein, LNP, preservative free, 30 mcg/0.3mL dose administered Note: [facility] bi-direct ional interface ; Source: Other Registry influenza, high dose seasona l, preservative-free administered Note: [facility] bi-direct ional interface ; Source: Other Registry influenza, high dose seasona l, preservative-free administered Note: [facility] bi-direct ional interface ; Source: Other Registry influenza, high dose seasona l, preservative-free administered Note: [facility] bi-direct ional interface ; Source: Other Registry influenza, high dose seasona l, preservative-free administered Note: [facility] bi-direct ional interface ; Source: Other Registry Prevnar 13 administered Note: [facility] bi-d irectional interface ; Source: Other Registry zoster vaccine, live administered Note: [facility] bi-directional interface ; Source: Other Registry Pneumovax 23 administered Note: [facility] bi-d irectional interface ; Source: Other Registry Influenza, seasonal, injecta ble, preservative free administered Note: [facility] bi-direct ional interface ; Source: Other Registry tetanus toxoid, reduced diphtheria toxoid, and acellular pertussis vaccine, adsorbed administered Note: [facility] b i-directional interface ; Source: Other Registry Influenza, seasonal, injecta ble, preservative free administered Note: [facility] bi-direct ional interface ; Source: Other Registry Influenza, seasonal, injectable administe red Note: [facility] bi- directional interface ; Source: Other Registry Influenza, seasonal, injectable administe red Note: [facility] bi- directional interface ; Source: Other Registry Payers Payer name Insurance type Covered constitution party ID Authoriza tion(s) Medicare NGS MB [id number] [facility] Medicare Supplement [id number] Social History Type Description Quantity Date Captured Comments Sex Male Smoking Status No Information Chief Complaint And Reason For Visit No Information Reason For Referral Reason For Referral No Information History Of Present Illness Encounter Date Complaint History Of Prese nt Illness No Information Functional Status Date Functional Assessmen t No Information Instructions Date Instruction Additional Infor florina High Fiber Diet Related to Diarr hea, unspecified type Colon Cancer Prevention Related to Diarrhea, unspecified type Colon Polyps Related to Diarr hea, unspecified type Hemorrhoids Related to Diarr hea, unspecified type Assessments Type Assessment Date No Information Patient Care Teams Name Effective Dates (start - stop) Status Members No Information
--- OUTSIDE RECORDS SUMMARY | 2021-07-21 05:31 | XMS_ITS | Continuity of Care Document ---
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 [facility] [address], [id number], [place]. tel:[phone] Referring Provider: Gio Smyth, [address] [address], [place], [address] . tel:[phone] [facility], [address] [address], [place], [place], [id number], [place] tel:[phone] [facility] Diarrhea, unspecified typeHemorrhoid s, internalColore ctal polypsBenign neoplasm of sigmoid colonBenign neoplasm of ascending colonDiarrhea, unspecifiedOth er hemorrhoids 1 Nash [place]. [facility] [address], [place], [id number], [place]. tel:[phone] Referring Provider: Andrew Erickson MD C, [address] [place], [address]. tel:[phone] [facility], [address] [address], [facility], [place], [id number], [place] tel:[phone] [facility] No Information 1 Parul Fine. [address] [place] [address], [id number], [place]. tel:[phone] Offic/outpt E&m Estab Low-mod [facility], [address] [address], [place], [id number], [place] tel:[phone] [facility] No Information 3 Zita Hagan. [address] [place] [address], [id number], [place]. tel:[phone] Referring Provider: Andrew Ruff, [address] [place] [address], [address]. tel:[phone] Offic/outpt E&m Estab Low-mod [facility], [address] [address], [place], [place], [id number], [place] tel:[phone] [facility] No Information 3 Zita Hagan. [address] [place] [address], [id number], [place]. tel:[phone] Referring Provider: Andrew Ruff, [address] [place] [address], [address]. tel:[phone] Offic/outpt E&m Estab Low-mod [facility], [address] [address], [place], [id number], [place] tel:[phone] [facility] No Information 3 Zita Hagan. [address] [place] [address], [id number], [place]. tel:[phone] Referring Provider: Andrew Ruff, [address] [place] [address], [address]. tel:[phone] Offic/outpt E&m Estab Low-mod [facility], [address] [address], [place], [id number], [place] tel:[phone] [facility] No Information 3 Zita Hagan. [address], [id number], [place]. tel:[phone] Referring Provider: Andrew Ruff, [address] [place] [address], [address]. tel:[phone] [facility], [address] [address], [facility] [place], [id number], [place] tel:[phone] [facility] No Information 3 Zita Hagan. [address] [facility] [address], [place], [id number], [place]. tel:[phone] Referring Provider: Andrew Ruff, [address] [place], [address]. tel:[phone] Family History Family Member Type Diagnosis Age [...] Registry Payers Payer name Insurance type Covered green party ID Authoriza tion(s) Medicare NGS MB [id number] [facility] Medicare Supplement [id number] 01 Social History Type Description Quantity Date Captured Comments Sex Male Smoking Status No Information Chief Complaint And Reason For Visit No Information Reason For Referral Reason For Referral No Information History Of Present Illness Encounter Date Complaint History Of Prese nt Illness No Information Functional Status Date Functional Assessmen t No Information Instructions Date Instruction Additional Infor mation High Fiber Diet Related to Diarr hea, unspecified type Hemorrhoids Related to Diarr hea, unspecified type Colon Polyps Related to Diarr hea, unspecified type Colon Cancer Prevention Related to Diarrhea, unspecified type Assessments Type Assessment Date No Information Patient Care Teams Name Effective Dates (start - stop) Status Members No Information
--- OUTSIDE RECORDS SUMMARY | 2024-10-12 12:00 | XMS_ITS | Encounter Summary ---
Author Organization [place] Address [address] [place] [address] Care Team Providers Care Imaging Technician Name Role Phone Andrew Erickson MD Primary Care Provider [phone] Sandoval Boggs MD Unavailable [phone] Jordan Erickson MD Unavailable [phone] Essence Wise [facility] Unavailable [phone] Heidy Harrell DO Unavailable [phone] Heidy Harrell DO Unavailable [phone] Essence Wise [facility] Unavailable [phone] Pablito Paulson MD Unavailable Phuc Cruz MD Unavailable Unavailab le Phuc Cruz MD Unavailable Unavailab le Reason for Visit * Rehab Therapy [facility] (Routine: Next available opening) - Authorized Specialty Diagnoses / Procedures Referred By Ranjeet gleason Referred To Contact Diagnoses Parkinson's disease without dyskinesia or fluctuating manifestations (H) Falls frequently Peripheral polyneuropathy [address] [address] Phone: tel: Referral ID Status Reason Start Date Expiration Date V isits Requested Visits Authorized [id number] Authorized 09/27/2024 08/21/2025 365 365 Encounter Details Date Type Department Care Team (Late st Contact Info) Description 10/12/2024 11:00 AM KENNEL WORKER Therapy [facility] [address] [place] [phone] Lary Schmitz, [place] [address], [place] [address] Tami Phelps, OTR [facility] [address] [place] [address] Parkinson's disease without dyskinesia or fluctuating manifestations (H); Memory problem Social History Tobacco Use Types Packs/Day Years Used Date Smoking Tobacco: Former Cigarettes Q uit: 1981 Smokeless Tobacco: Never Alcohol Use Standard Drinks/Week Comments Not Currently 15 (1 standard drink = 0.6 oz pu re alcohol) PHQ-2 Answer Date Recorded PHQ-2 Score 4 11/06/2024 Adolescent Education Answer Date Record ed Getting School Help Needed Not on file 06/04 Interpersonal Safety Answer Date Record ed Do you feel physically and e motionally safe where you currently live? Yes 10/12/2024 Within the past 12 months, h ave you been hit, slapped, kicked or otherwise physically hurt by someone? No 10/12/2024 Within the past 12 months, h ave you been humiliated or emotionally abused in other ways by your partner or ex-partner? No 10/12/2024 Sex and Gender Information Value Date Recorded Sex Assigned at Male 04/09/2020 8:36 AM CDT Legal Sex Male 3:26 AM KENNEL WORKER Gender Identity Male 04/09/2020 8:36 AM CDT Sexual Orientation Straight 04/09/2020 8: 36 AM CDT documented as of this encounter Progress Notes * Tami Phelps OTR - 01/10/2025 1:06 PM CDT DISCHARGE Reason for Discharge: Patient has failed to schedule further appointments. Equipment Issued: n/a Discharge Plan: Patient to continue home program. Referring Provider: Lary Schmitz 10/12/24 0500 Appointment Info Treating Provider TRENT Clemons/Alen Visits Used 08/25 - MEDICARE; [place]ARE [place]PPLE[place] Medical Diagnosis Parkinson's disease without dyskinesia or fluctuating manifestations (H); Memory problem OT Tx Diagnosis Decreased IND with ADLs/IADLs Precautions/Limitations fall Other pertinent information telehealth - yes Quick Add Certification Progress Note/Certification Start Of Care Date 10/12/24 Onset of Illness/Injury or Date of Surgery 09/19/24 (date of order used) Therapy Frequency 1x/week Predicted Duration up to 90 days (due to pt scheduling conflicts) Certification date from 10/12/24 Certification date to 01/09/25 Progress Note Due Date 01/09/25 Goals OT Goals 1;2;3 OT Goal 1 Goal Identifier Cognition/Safety Goal Description Patient will demonstrate understanding of cognitive screen results and applicationof 3 memory/cognitive compensatory strategies to increase patient's safety and independence with tasks in the home and community/work setting (schedule management, medication management, patient financial services manager, to-do items). Rationale In order to maximize safety and independence with performance of self- care activities;In order to maximize safety and independence with ADL/IADLs;In order to maximize safety and independence with cognitive function within the home or community;In order to maximize independence with tasks requiring functional cognition/executive function for school, work, medication or financial mgmt Goal Progress Goal not met. Administered MoCA 8.1 and educated pt in results. Had planned to further address but pt failed to attend/schedule further appointments. Target Date 01/09/25 OT Goal 2 Goal Identifier Memory Goal Description Patient will demonstrate improved memory skills by completing short-term memory tasks in occupational therapy with 90% accuracy using compensatory strategies for increased safety andindependence with ADL/IADLS (keeping up schedule, remembering to take medications, turn off the stove when done). Rationale In order to maximize safety and independence with performance of self- care activities;In order to maximize safety and independence with ADL/IADLs;In order to maximize safety and independence with cognitive function within the home or community;In order to maximize independence with tasks requiring functional cognition/executive function for school, work, medication or financial mgmt Goal Progress Goal not met. Briefly initiated education in cognitive HEP but had planned to furtherprogress. Pt failed to attend/schedule further appointments. Target Date 01/09/25 OT Goal 3 Goal Identifier UE HEP Goal Description Pt will demonstrate independent completion of HEP for UE coordination/strength PRNto promote independence with ADLs/IADLs (e.g. retrieving object from cabinet or refrigerator, handwriting, opening packages/containers). Rationale In order to maximize safety and independence with performance of self- care activities;In order to maximize safety and independence with ADL/IADLs Goal Progress Goal not met. Had planned to further address but pt failed to attend/schedule furtherappointments. Target Date 01/09/25 Subjective Report Subjective Report see eval report Eval/Assessments OT Eval, Low Complexity Minutes (19554) 50 Education Learner/Method Patient;Listening Education Comments OT evaluation completed, educated in OT role and POC. Educated in risks vs benefits of continuing with OP OT. Pt choosing to wait on scheduling more appointments but plans to call in at a later time. Notes significant life stress/barriers in scheduling at this time. Briefly educated in cognitive HEP activity ideas for home. Plan Home program cognitive activities Plan for next session f/u [facility]. Memory ed/strategies + cognitive HEP (Speed, 13 cardtrick, apps prn, FM/SET). Memory questionnaire + strategies. UE - pinch strength prn (caution L wrist pain), handwriting tools/practice? Total Session Time Total Treatment Time (sum of timed and untimed services) 50 Thank you for the referral of this patient. If you have any questions regarding the information in this report, please feel free to contact me per the information provided below. Tami Phelps MA, OTR/[place] [address] Clinic Clinic * Tami Phelps OTR - 10/12/2024 11:00 AM CST OCCUPATIONAL THERAPY EVALUATION Type of Visit: Evaluation Fall Risk Screen: Fall screen completed by: OT Have you fallen 2 or more times in the past year?: Yes Have you fallen and had an injury in the past year?: No Is patient a fall risk?: Yes; Department fall risk interventions implemented Fall screen comments: Reports he falls upwards of 4-5x/week in the summer, not as much in the winter, due to tripping on his foot drop when walking on uneven ground Subjective Presenting condition or subjective complaint: johanans Date of onset: 09/19/24 (date of order used) Relevant medical history: Arthritis; Depression; Dizziness; Foot drop; Numbness or tingling in perianal area; Parkinson???s Disease; Severe dizziness; Significant weakness; Sleep disorder like apnea Marck is a pleasant 73 year old, right hand dominant male who presents to OP OT for further evaluation of cognitive changes secondary to PD. Per neurology notes on 09/19/24: ???Kar Aguilar is a 73 yr old R-handed [...] so presented to Dr. Erickson at the [facility] in 2018 who noted additional parkinsonisms and diagnosed him with PD. He was also having cognitive concerns but Neuropsych testing in 2019 noted only mild executive dysfunction without dementia. CD/LD was started with good effect. He transferred his care to [facility] later in 2018 where he was [...] also seen by Dr. Wise, Pharm.D. in [facility] on 04/10/2024, but felt [...] meds, and cooks. He also reports having fatigue.?? Dates & types of surgery: both shoulder and hips replaced, william in lower back; see EHR for details Prior diagnostic imaging/testing results: EMG ; see EHR for details Prior therapy history for the same diagnosis, illness or injury: Yes Started OP PT at this clinic in early September 2024 - see PT notes for details Prior Level of Function Transfers: Independent Ambulation: Independent ADL: Independent IADL: Driving, Finances, Meal preparation, Medication management, Yard work Living Environment Social support: With a significant other or spouse (2 adult sons, 4 grandkids) Type of home: House; 1 level Stairs to enter the home: No Ramp: No Stairs inside the home: No Help at home: None Equipment owned: Straight Cane; Walker with wheels; Crutches; Bedrail; Grab bars; Raised toilet seat; Bath bench Employment: No ; 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 Hobbies/Interests: yard work ([place] area), watching TV and spending time on the computer, Bible study Patient goals for therapy: to increse and have stability and memory skills Pain assessment: Pain denied - reports he does have low back pain especially when he sleeps on a different mattress Objective Cognitive Status Examination Orientation: Oriented to person, place and time Level of Consciousness: Alert Follows Commands and Answers Questions: 100% of the time, Follows single step instructions Personal Safety and Judgement: Intact Memory: Impaired Attention: Divided attention impaired, difficulty with simultaneous tasks, Difficulty with dual tasking Organization/Problem Solving: Problem solving impaired Executive Function: Working memory impaired, decreased storage of information for performing tasks,Cognitive flexibility impaired, Planning ability impaired Comments: Reports his son just entered hospice care, which has been stressful/emotional. Marck feels he has a good memory but sometimes it feels like it's filed in the wrong drawer. I'll be trying to remember something and can't think of it, but then I'm able to say the words and think of it later when I'm driving away from the place. Reports increased difficulty with getting to appointments on time. Endorses needing min increased time for cognitive processing. Cognitive Screen: MoCA 8.1 Details: To further assess cognition, administered the [place] Cognitive Assessment (MoCA), which was designed as a rapid screening instrument for mild cognitive dysfunction with a score of 26/30 considered normal. Administered MoCA 8.1 with pt scoring 22/30 (MIS = 12/15), indicating potential mild cognitive impairment. Pt scored 3/5 on visuospatial/executive (error with cube copy, hands on clock), 1/3 on naming (tiger vs lion, hippo vs rhino), 6/6 on attention, 2/3 on language (gets 7 words on fluency in 1 min), 2/2 on abstraction, 2/5 on delayed recall (recalls 3 additional words with category cues), and 6/6 on orientation. VISUAL SKILLS Visual Acuity: Wears glasses (progressive lenses, endorses increased blurriness in his vision, reports his eyes were last checked in May but doesn't feel they have made a big difference in how heis seeing) Visual Field: Appears normal Visual Attention: Appears normal Oculomotor: Appears normal SENSATION: UE Sensation WNL, reports min numbness in feet POSTURE: Sitting Posture: Rounded shoulders, Forward head RANGE OF MOTION: UE AROM WFL - min limitations in bilateral UE due to bilateral reverse shoulder replacements STRENGTH: UE WFLs, LE WFLs, reports wrist injury this last year that causes min pain with L hand strength testing and likely impacts strength on today's assessment Pain: - none + mild ++ moderate +++ severe Strength Scale: 0-5/5 Left Right Referral Nurse Strength (lbs) 39 (about 1 SD below the mean) 90 (WNLs) Lateral Pinch (lbs) 10 (3 SD below the mean) 16 (WNLs) 3 Point Pinch (lbs) 7 (2-3 SD below the mean) 8 (2-3 SD below the mean) Hand Dominance: right-handed MUSCLE TONE: WFL COORDINATION: UE Coordination: Denies trouble with tremors. Min tremor observable in bilateral hands during today's session, particularly with use (9HPT, writing). Micrographia observed with handwriting. Reports he has greater control with writing when he writes smaller. Reports that he feels his me dications are making him feel slower and less energy and is considering asking his doctor to lower these. Educated on purpose of medications to manage symptoms and encouraged further discussion with his doctor. Left Hand, Nine Hole Peg Test (sec): 34.7 sec (1-2 SD below the mean) Right Hand, Nine Hole Peg Test (sec): 29.0 sec (1-2 SD below the mean) BALANCE: Diminished balance with STS transfers and ambulation. Reports that he has trouble with BP dropping with position changes, and he sometimes forgets to slow down when changing positions. He also notes trouble with toes getting caught especially on uneven ground, leading to falls. Is working with OP PT at this clinic - see PT notes for further details. FUNCTIONAL MOBILITY Assistive Device(s): Cane (single end), Walker (front wheeled) - reports he uses these prn depending on how he feels during the day (ie. Forgot to take meds and has greater instability that day) Ambulation: mod I, increased time/caution, intermittent use of AE Wheelchair: n/a BED MOBILITY: WFL, Independent TRANSFERS: WFL, Independent - relies on hand holds for pushing up from chairs; prefers taller chairs due to being taller and trouble getting up from shorter surfaces BATHING: WFL, Independent Equipment: Grab bar, Long-handled sponge, Shower chair/Tub bench UPPER BODY DRESSING: WFL, Independent - reports buttons are becoming more challenging Equipment: n/a LOWER BODY DRESSING: WFL, Independent - reports increased trouble bending over to reach shoes to tie them, prefers slip on shoes Equipment: n/a TOILETING: WFL, Independent Equipment: Grab bar, Raised toilet seat GROOMING: WFL, Independent Equipment: n/a EATING/SELF FEEDING: WFL, Independent Equipment: n/a; reports increased spillage with items like soup ACTIVITY TOLERANCE: Reports that he primarily stays active around the house especially in the summer. Reports he does have some new exercises from physical therapy. Reports he does fairly well regarding his energy if he is sleeping well, but he can fatigue quite quickly especially if he had poor rest. Reports he sleeps well using CPAP. INSTRUMENTAL ACTIVITIES OF DAILY LIVING (IADL): Medication management: spouse assists with placing medications in pillboxes, Marck reports he typically remembers but sometimes does need a reminder from spouse to take medications Meal Planning/Prep: reports he doesn't cook as much as he used to which he feels is mostly due to having celiac disease and she prefers to have control over what is being cooked; could prepare himself something as needed Home/Webmaster: spouse completes laundry, assists occasionally with household management; he has always done more of the yard work/outdoor work; Marck manages finances manually and denies forgetfulness with paying bills Communication/Computer Use: cell phone, computer Community Mobility: IND with driving. Spouse does most of the grocery shopping. Assessment & Plan CLINICAL IMPRESSIONS Medical Diagnosis: Parkinson's disease without dyskinesia or fluctuating manifestations (H); Memoryproblem Treatment Diagnosis: Decreased IND with ADLs/IADLs Impression/Assessment: Pt is a 73 year old male presenting to Occupational Therapy due to Parkinson's and memory problem. The following significant findings have been identified: Impaired activity tolerance, Impaired balance, Impaired cognition, Impaired communication, Impaired coordination, Impaired mobility, Impaired motor control, Impaired sensation, Impaired strength, Pain, Impaired postural control, and Impaired visual perception. These identified deficits interfere with their ability to perform self care tasks, recreational activities, cash posting representative, driving , household mobility, community mobility, medication management, patient financial services manager, yard work, meal planning and preparation, and community or volunteer activities as compared to previous level of function. Clinical Decision Making (Complexity): Assessment of Occupational Performance: 5 or more Performance Deficits Occupational Performance Limitations: bathing/showering, toileting, dressing, feeding, functional mobility, communication management, driving and community mobility, health management and maintenance, home establishment and management, meal preparation and cleanup, jainism and spiritual activities and expression, shopping, leisure activities, and social participation Clinical Decision Making (Complexity): Low complexity PLAN OF CARE Treatment Interventions: Interventions: Cognitive Skills, Community/Work Reintegration, Self-Care/Home Management, Therapeutic Activity, Therapeutic Exercise Fpc Goals OT Goal 1 Goal Identifier: Cognition/Safety Goal Description: Patient will demonstrate understanding of cognitive screen results and application of 3 memory/cognitive compensatory strategies to increase patient's safety and independence with tasks in the home and community/work setting (schedule management, medication management, financial ma nagement, to-do items). Rationale: In order to maximize safety and independence with performance of self-care activities;Inorder to maximize safety and independence with ADL/IADLs;In order to maximize safety and independence with cognitive function within the home or community;In order to maximize independence with tasks requiring functional cognition/executive function for school, work, medication or financial mgmt Target Date: 01/09/25 OT Goal 2 Goal Identifier: Memory Goal Description: Patient will demonstrate improved memory skills by completing short-term memory tasks in occupational therapy with 90% accuracy using compensatory strategies for increased safety and independence with ADL/IADLS (keeping up schedule, remembering to take medications, turn off the stove when done). Rationale: In order to maximize safety and independence with performance of self-care activities;Inorder to maximize safety and independence with ADL/IADLs;In order to maximize safety and independence with cognitive function within the home or community;In order to maximize independence with tasks requiring functional cognition/executive function for school, work, medication or financial mgmt Target Date: 01/09/25 OT Goal 3 Goal Identifier: UE HEP Goal Description: Pt will demonstrate independent completion of HEP for UE coordination/strength PRN to promote independence with ADLs/IADLs (e.g. retrieving object from cabinet or refrigerator, handwriting, opening packages/containers). Rationale: In order to maximize safety and independence with performance of self-care activities;Inorder to maximize safety and independence with ADL/IADLs Target Date: 01/09/25 Frequency of Treatment: 1x/week Duration of Treatment: up to 90 days (due to pt scheduling conflicts) Recommended Referrals to Other Professionals: Physical Therapy (already scheduled), will monitor need for Speech Therapy and initiate referral prn Education Assessment: Learner/Method: Patient;Listening Education Comments: OT evaluation completed, educated in OT role and POC. Educated in risks vs benefits of continuing with OP OT. Pt choosing to wait on scheduling more appointments but plans to callin at a later time. Notes significant life stress/barriers in scheduling at this time. Briefly educated in cognitive HEP activity ideas for home. Risks and benefits of evaluation/treatment have been explained. Patient/Family/caregiver agrees with Plan of Care. Evaluation Time: OT Eval, Low Complexity Minutes (31928): 50 Signing Clinician: TRENT Clemons [facility] OUTPATIENT OCCUPATIONAL THERAPY PLAN OF TREATMENT FOR OUTPATIENT REHABILITATION Patient's Last Name, First Name, Kar Ochoa Date of : 1950 Provider's Name [facility] Onset Date: 09/19/24 (date of order used) Start of Care Date: 10/12/24 Medical Diagnosis: Parkinson's disease without dyskinesia or fluctuating manifestations (H); Memoryproblem OT Treatment Diagnosis: Decreased IND with ADLs/IADLs Plan of Treatment Frequency/Duration:1x/week/up to 90 days (due to pt scheduling conflicts) Certification date from 10/12/24 To 01/09/25 See note for plan of treatment details and functional goals TRENT Clemons I CERTIFY THE NEED FOR THESE SERVICES FURNISHED UNDER THIS PLAN OF TREATMENT AND WHILE UNDER MY CARE (Physician attestation of this document indicates review and certification of the therapy plan). Referring Provider: Lary Schmitz Initial Assessment See Epic Evaluation- 10/12/24 Cosigned by Lary Schmitz APRN CNP at 10/31/2024 5:02 AM CDT EL WORKER Associated attestation - Lary Schmitz APRN CNP - 10/31/2024 5:02 AM CDT Attestation: I have read the note by Tami Phelps OTR & agree with the plan of treatment for Mr. Kar Aguilar. Gabby Schmitz DNP, [facility] Neurology Clinic documented in this encounter Plan of Treatment Upcoming Encounters Date Type Department Care Team (Late st Contact Info) Description 07/10/2025 12:00 PM KENNEL WORKER Office Visit [facility] Neurology [facility] [address] [place] [address] Lary Schmitz APRN CNP [address] [facility] [id number], [place] [address] documented as of this encounter Visit Diagnoses Diagnosis Parkinson's disease without dyskinesia or fluctuating manifestations (H) Memory problem Memory loss documented in this encounter Additional Health Concerns Assessment Noted Time PHQ-9 Depression Total Score: 14 021 7:02 AM CDT documented as of this encounter Care Teams Imaging Technician Relationship Specialty Start Date End Date Andrew Erickson MD PCP - General Family Practice 11/12/17 Sandoval Boggs MD [address] [place] [id number] Clinical Neurophysiology 11/03/18 Jordan Erickson MD [address] [address] 11/03/18 Essence Wise [facility] [address] [place] [address] Pharmacist Pharmacist 06/01/21 Heidy Harrell DO [address] [place] [address] Neurology 09/28/21 Heidy Harrell DO [address] [place] [address] Assigned Neuroscience Provider 04/17/22 Essence Wise [facility] [address] [place] [address] Assigned MTM Pharmacist 10/14/23 Pablito Paulson MD [address] [place] [address] Assigned Pulmonology Provider 03/13/24 Phuc Cruz MD [address] [place] [address] Cardiovascular Disease 09/20/24 01/02/25 Phuc Cruz MD Assigned Heart and Vascular Provider 10/14/24 01/10/25 documented as of this encounter
--- OUTSIDE RECORDS SUMMARY | 2024-10-12 12:00 | XMS_ITS | Encounter Summary ---
Author Organization [facility] Address [address] [place] [address] Care Team Providers Care Machinist Set Up Name Role Phone Andrew Erickson MD Primary Care Provider [phone] Sandoval Boggs MD Unavailable [phone] Jordan Erickson MD Unavailable [phone] Essence Wise [facility] Unavailable Heidy Harrell DO Unavailable [phone] Heidy Harrell DO Unavailable [phone] Essence Wise [facility] Unavailable [phone] Pablito Paulson MD Unavailable Phuc Cruz MD Unavailable Unavailab le Phuc Cruz MD Unavailable Unavailab le Reason for Visit * Rehab Therapy Integrated Services (Routine: Next available opening) - Authorized Specialty Diagnoses / Procedures Referred By Ranjeet gleason Referred To Contact Diagnoses Parkinson's disease without dyskinesia or fluctuating manifestations (H) Falls frequently Peripheral polyneuropathy [address] [address] Phone: tel: Referral ID Status Reason Start Date Expiration Date V isits Requested Visits Authorized [id number] Authorized 09/27/2024 08/21/2025 365 365 Encounter Details Date Type Department Care Team (Late st Contact Info) Description 10/12/2024 11:00 AM SUPPLY CRIB ATTENDANT Therapy [facility] [address] [place] [id number] Lary Schmitz, EVERETTE [address] [address] Tami Phelps, OTR [facility] [address] [place] [address] Parkinson's disease without dyskinesia or fluctuating manifestations [...] AM CDT Legal Sex Male 3:26 AM SUPPLY CRIB ATTENDANT Gender Identity Male 04/09/2020 8:36 AM CDT [...] and community/work setting (schedule management, medication management, statistical financial analyst, to-do items). Rationale In order to maximize [...] report Eval/Assessments OT Eval, Low Complexity Minutes (78875) 50 Education Learner/Method Patient;Listening Education Comments OT [...] [facility]. Memory ed/strategies + cognitive HEP (Speed, [...] below. Tami Phelps MA, OTR/[place] [address] Clinic Clinic * Tami Phelps OTR - [...] so presented to Dr. Erickson at the [facility] in 2018 who noted additional parkinsonisms and diagnosed him with PD. He was also having cognitive concerns but Neuropsych testing in 2019 noted only mild executive dysfunction without dementia. CD/LD was started with good effect. He transferred his care to [facility] later in 2018 where he was first [...] also seen by Dr. Wise, Pharm.D. 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 Clinical Decision Making (Complexity): Assessment of Occupational Performance: 5 or more Performance Deficits Occupational Performance Limitations: bathing/showering, toileting, dressing, feeding, functional mobility, communication management, driving and community mobility, health management and maintenance, home establishment and management, meal preparation and cleanup, latter-day and spiritual activities and expression, shopping, leisure activities, and social participation Clinical Decision Making (Complexity): Low complexity PLAN OF CARE Treatment Interventions: Interventions: Cognitive Skills, Community/Work Reintegration, Self-Care/Home Management, Therapeutic Activity, Therapeutic Exercise Skilled Nursing Goals OT Goal 1 Goal Identifier: Cognition/Safety [...] Evaluation Time: OT Eval, Low Complexity Minutes (01725): 50 Signing Clinician: TRENT Clemons [facility] OUTPATIENT OCCUPATIONAL THERAPY PLAN OF TREATMENT FOR OUTPATIENT REHABILITATION Patient's Last Name, First Name, Kar Ochoa Date of : 1950 Provider's Name [facility] Onset Date: 09/19/24 (date of order [...] APRN CNP at 10/31/2024 5:02 AM CDT LY CRIB ATTENDANT Associated attestation - Lary Schmitz APRN CNP - 10/31/2024 5:02 AM CDT Attestation: I have read the note by Tami Phelps OTR & agree with the plan of treatment for Mr. Kar Aguilar. Gabby Schmitz DNP, EVERETTE [facility] Neurology Clinic documented in this encounter Plan of Treatment Upcoming Encounters Date Type Department Care Team (Late st Contact Info) Description 07/10/2025 12:00 PM SUPPLY CRIB ATTENDANT Office Visit [facility] Neurology Clinic [facility] [address] [place] [address] Lary Schmitz APRN CNP [address] [facility] [id number], [place] [address] documented as of this encounter Visit Diagnoses Diagnosis Parkinson's disease without dyskinesia or fluctuating manifestations (H) Memory problem Memory loss documented in this encounter Additional Health Concerns Assessment Noted Time PHQ-9 Depression Total Score: 14 021 7:02 AM CDT documented as of this encounter Care Teams Machinist Set Up Relationship Specialty Start Date End Date Andrew Erickson MD PCP - General Family Practice 11/12/17 Sandoval Boggs MD [address] [place] [address] Clinical Neurophysiology 11/03/18 Jordan Erickson MD [address] [address] 11/03/18 Essence Wise [facility] [address] [place] [address] Pharmacist Pharmacist 06/01/21 Heidy Harrell DO [address] [place] [address] Neurology 09/28/21 Heidy Harrell DO [address] [place] [address] Assigned Neuroscience Provider 04/17/22 Essence Wise [facility] [address] [place] [address] Assigned MTM Pharmacist 10/14/23 Pablito Paulson MD [address] [place] [address] Assigned Pulmonology Provider 03/13/24 Phuc Cruz MD [address] [place] [address] Cardiovascular Disease 09/20/24 01/02/25 Puhc Cruz MD Assigned Heart and Vascular Provider 10/14/24 01/10/25 documented as of this encounter
--- OUTSIDE RECORDS SUMMARY | 2025-01-16 12:45 | XMS_ITS | Encounter Summary ---
Author Organization [facility] Address [address] [facility] [place] [address] Care Team Providers Care Nuclear Medicine Technologist Name Role Phone Andrew Erickson MD Primary Care Provider [phone] Sandoval Boggs MD Unavailable [phone] Jordan Erickson MD Unavailable [phone] Essence Wise [facility] Unavailable [phone] Heidy Harrell DO Unavailable [phone] Heidy Harrell DO Unavailable [phone] Essence Wise [facility] Unavailable [phone] Pablito Paulson MD Unavailable Claudia Loya APRN SUSTAINABILITY COORDINATOR Unavailable [phone] Reason for Visit * Reason Comments Parkinson Follow up Encounter Details Date Type Department Care Team ([facility] st Contact Info) Description 01/16/2025 12:45 PM CDT Office Visit [facility] Neurology Clinic [facility] [address] [place] [address] Lary Schmitz APRN SUSTAINABILITY COORDINATOR [address] [facility] [id number] [place], [place] [address] Parkinson's disease without dyskinesia or fluctuating manifestations (H) (Primary Dx); Falls frequently; Orthostatic hypotension; Memory problem Social History Tobacco Use Types [...] AM CDT Legal Sex Male 3:26 AM MANAGER UNION Gender Identity Male 04/09/2020 8:36 AM CDT Sexual Orientation Straight 04/09/2020 8: 36 AM CDT documented as of this encounter Last Filed Vital Signs Vital Sign Reading Time Taken Comments Blood Pressure 136/87 01/16/2025 12:44 PM CDT Pulse 91 01/16/2025 12:44 PM CDT Temperature - - Respiratory Rate - - Oxygen Saturation - - Inhaled Oxygen Concentration - - Weight - - Height - - Body Mass Index - - documented in this encounter Patient Instructions * Patient Instructions* Lary Schmitz APRN SUSTAINABILITY COORDINATOR - 01/16/2025 12:45 PM CDT Dear Mr. Kar Aguilar, Thank you for coming today. During your visit, we have discussed the following: __ Stay on the same antiparkinsonian medications. __ Continue to follow up with Cardiology to manage lightheadedness. __ If/when you're able, consider going back to PT to work on gait and balance, and OT to work on Memory. __ Return in 6 months for a follow up to see me of Dr. Harrell. You may return sooner as needed. For questions, you may send us a [employer] message or call [phone] Fax number: [phone] Gabby Zurita. LINK Schmitz APRN [facility] Neurology Clinic documented in this encounter Progress Notes * Lary Schmitz APRN CNP - 01/16/2025 12:45 PM CDT ASSESSMENT: Parkinson's Disease: Orthostatic hypotension: Balance Problems: Memory/Cognitive Problems: PLAN: The above assessment discussed, questions addressed, and the following patient instructions provided: - __ Stay on the same antiparkinsonian medications. __ Continue to follow up with Cardiology to manage lightheadedness. __ If/when you're able, consider going back to PT to work on gait and balance, and OT to work on Memory. __ Return in 6 months for a follow up to see me of Dr. Harrell. You may return sooner as needed. MOVEMENT DISORDERS CLINIC [facility] LOCATION PATIENT: Kar Aguilar : 1950 VANI: January 16, 2025 REASON FOR VISIT: Parkinson's Disease (PD) and Orthostatic Hypotension (OH) follow up. HPI: Mr. Kar Aguilar is a 74 year old who came to the clinic by himself for a follow up visit.I saw him last on 09/19/2024 for a follow up visit. Prior to that, he had seen Dr. Sainz. Pertinent PD Hx: The patient reports a long-time postural tremor [...] so presented to Dr. Erickson at the [facility] in 2018 who noted additional parkinsonisms and diagnosed him with PD. He was also having cognitive concerns but Neuropsych testing in 2019 noted only mild executive dysfunction without dementia. CD/LD was started with good effect. He transferred his care to [facility] later in 2018 where he was first followed by Dr. Boggs until he retired and his care was taken over by Dr. Harrell in 2022. By this point, his symptoms had progressed to include ongoing tremor, frequent falls, ongoing RBD, and orthostatic dizziness. During his last visit, he was referred to cardiology for the management of OH; to PT due to frequent falls to work on gait and balance; and to OT to work on memory. Today, due he reports that his son, german was suffering from glioblastoma in the last year yesterday. Pt was teary talking about his son. Balance: He continues falling monthly. Mostly due to low blood pressure. He did a few PT sessions and stopped. [place]. Tremor: It's not bad and he hasn't noticed it. No alcohol since Jun 2024. 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 Gillette. Uses CPAP machine. Mood. Grieving due to loss of his son. Not interested in Psychotherapy. OH: He is not sure about his dose of Florinef. When he was seen by cardiology on 12/06/2024, Midodrine 5 mg TID was started. He is not sure if he is taking it. His manages his meds. Memory: He has difficulty remembering names of his meds or people. He continues driving and hasn't had issues. He has stopped going to OT. Pertinent Medications Indications 6-9 am 2-4 pm 7-9 pm 9-10 pm Sinemet 25/100 mg PD 2 2 2 ClonazePAM 1 mg RBD 1 Florinef 0.1 mg OH Pt is not sure when he take it & how often Midodrine 5 mg OH Pt is not sure when he take it & how often PHYSICAL EXAM: Blood pressure 136/87, pulse 91. Today I spent 40 minutes caring for the patient. Time was spent in reviewing records, obtaining history, answering questions, discussing treatments, and documentation. Gabby Schmitz DNP, PROJECT PORTFOLIO ANALYST [facility] Neurology Clinic The longitudinal plan of care for the diagnosis(es)/condition(s) as documented were addressed during this visit. Due to the added complexity in care, I will continue to support Marck in the subsequent management and with ongoing continuity of care. documented in this encounter Nursing Notes * Jessica Soliz MA - 01/16/2025 12:45 PM CDT Chief Complaint Patient presents with Parkinson Follow up Jessica DAVALOS documented in this encounter Plan of Treatment Upcoming Encounters Date Type Department Care Team (Late st Contact Info) Description 07/10/2025 12:00 PM MANAGER UNION Office Visit [facility] Neurology Clinic [address] [address] Lary Schmitz, EVERETTE SUSTAINABILITY COORDINATOR [address] [facility] [id number] [place], [place] [address] documented as of this encounter Visit Diagnoses Diagnosis Parkinson's disease without dyskinesia or fluctuating manifestations (H)- Primary Falls frequently Personal history of fall Orthostatic hypotension Memory problem Memory loss documented in this encounter Additional Health Concerns Assessment Noted Time PHQ-9 Depression Total Score: 8 11/07/19 25 9:03 AM CDT documented as of this encounter Care Teams Nuclear Medicine Technologist Relationship Specialty Start Date End Date Andrew Erickson MD PCP - General Family Practice 11/12/17 Sandoval Boggs MD [address] [place] [address] [id number] Clinical Neurophysiology 11/03/18 Jordan Erickson MD [facility] [address] [place] [address] 11/03/18 Essence Wise, [facility] [address] [place] [address] Pharmacist Pharmacist 06/01/21 Heidy Harrell DO [address] [place] [address] Neurology 09/28/21 Heidy Harrell DO [address] [place] [address] Assigned Neuroscience Provider 04/17/22 [facility] [address] [place] [address] Assigned [place] Pharmacist 10/14/23 Pablito Paulson MD [address] [place] [address] Assigned Pulmonology Provider 03/13/24 Claudia Loya APRN SUSTAINABILITY COORDINATOR [address] [place] [address] Assigned Heart and Vascular Provider 01/11/25 documented as of this encounter
--- OUTSIDE RECORDS SUMMARY | 2025-01-16 12:45 | XMS_ITS | Encounter Summary ---
Author Organization [facility] Address [address] [facility] [place] [address] Care Team Providers Care Stamp Collector Name Role Phone Andrew Erickson MD Primary Care Provider [phone] Sandoval Boggs MD Unavailable [phone] Jordan Erickson MD Unavailable [phone] Essence Wise [facility] Unavailable [phone] Heidy Harrell DO Unavailable [phone] Heidy Harrell DO Unavailable [phone] Essence Wise [facility] Unavailable [phone] Pablito Paulson MD Unavailable Claudia Loya APRN CALL BOX WIRER Unavailable [phone] Reason for Visit * Reason Comments Parkinson Follow up Encounter Details Date Type Department Care Team ([facility] st Contact Info) Description 01/16/2025 12:45 PM CDT Office Visit [facility] Neurology Clinic [facility] [address] [place] [address] Lary Schmitz APRN CALL BOX WIRER [address] [facility] [id number] [place], [place] [address] Parkinson's disease without dyskinesia or fluctuating manifestations [...] AM CDT Legal Sex Male 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 [...] For questions, you may send us a [employer] message or call [phone] Fax number: [phone] Gabby Zurita. LINK Schmitz APRN [facility] Neurology Clinic documented in this encounter [...] return sooner as needed. MOVEMENT DISORDERS CLINIC [facility] LOCATION PATIENT: Kar Aguilar : 1950 VANI: [...] so presented to Dr. Erickson at the [facility] in 2018 who noted additional parkinsonisms and diagnosed him with PD. He was also having cognitive concerns but Neuropsych testing in 2019 noted only mild executive dysfunction without dementia. CD/LD was started with good effect. He transferred his care to [facility] later in 2018 where he was first [...] discussing treatments, and documentation. Gabby Schmitz DNP, CUTTER APPRENTICE HAND [facility] Neurology Clinic The longitudinal plan of care for the diagnosis(es)/condition(s) as documented were addressed during this visit. Due to the added complexity in care, I will continue to support Marck in the subsequent management and with ongoing continuity of care. documented in this encounter Nursing Notes * Jessica Soilz MA - 01/16/2025 12:45 PM CDT Chief Complaint Patient presents with Parkinson Follow up Jessica DAVALOS documented in this encounter Plan of Treatment Upcoming Encounters Date Type Department Care Team (Late st Contact Info) Description 07/10/2025 12:00 PM DRY CELL AND BATTERY ASSEMBLER Office Visit [facility] Neurology Clinic [address] [address] Lary Schmitz, EVERETTE CALL BOX WIRER [address] [facility] [id number] [place], [place] [address] documented as of this encounter Visit Diagnoses Diagnosis Parkinson's disease without dyskinesia or fluctuating manifestations (H)- Primary Falls frequently Personal history of fall Orthostatic hypotension Memory problem Memory loss documented in this encounter Additional Health Concerns Assessment Noted Time PHQ-9 Depression Total Score: 8 11/07/19 25 9:03 AM CDT documented as of this encounter Care Teams Stamp Collector Relationship Specialty Start Date End Date Andrew Erickson MD PCP - General Family Practice 11/12/17 Sandoval Boggs MD [address] [place] [address] 962135 Clinical Neurophysiology 11/03/18 Jordan Erickson MD [facility] [address] [place] [address] 11/03/18 Essence Wise, [facility] [address] [place] [address] Pharmacist Pharmacist 06/01/21 Heidy Harrell DO [address] [place] [address] Neurology 09/28/21 Heidy Harrell DO [address] [place] [address] Assigned Neuroscience Provider 04/17/22 [facility] [address] [place] [address] Assigned [place] Pharmacist 10/14/23 Pablito Paulson MD [address] [place] [address] Assigned Pulmonology Provider 03/13/24 Claudia Loya APRN [employer]OX WIRER [address] [place] [address] Assigned Heart and Vascular Provider 01/11/25 documented as of this encounter
--- OUTSIDE RECORDS SUMMARY | 2025-01-28 10:30 | XMS_ITS | Encounter Summary ---
Author Organization [facility] Address [address] [place] [address] Care Team Providers Care Processing Archivist Name Role Phone Andrew Erickson MD Primary Care Provider [phone] Sadnoval Boggs MD Unavailable [phone] Jordan Erickson MD Unavailable [phone] Essence Wise [facility] Unavailable [phone] Heidy Harrell DO Unavailable [phone] Heidy Harrell DO Unavailable [phone] Essence Wise 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 OPERATOR Gender Identity Male 04/09/2020 8:36 AM CDT Sexual Orientation Straight 04/09/2020 8: 36 AM CDT documented as of this encounter Plan of Treatment Upcoming Encounters Date Type Department Care Team (Late st Contact Info) Description 07/10/2025 12:00 PM CHECKERING MACHINE OPERATOR Office Visit [facility] Neurology Clinic [address] [address] Lary Schmitz, TAKER OFF HEMP [facility] [address] [facility] [address] documented as of this encounter Procedures Procedure Name Priority Date/Time Associated Diagnosis Comments BASIC METABOLIC PANEL Routine 01/28/2025 10:54 AM CDT Hyponatremia Primary hypertension documented in this encounter Results * (ABNORMAL) Basic metabolic panel (01/28/2025 10:54 AM CDT) Sodium 139 135 - 145 mmol/L 01/28/2025 11:23 AM CDT LABORATORY Potassium 4.4 3.4 - 5.3 mmol/L 01/28/2025 11:23 AM CDT LABORATORY Chloride 100 98 - 107 mmol/L 01/28/2025 11:23 AM CDT LABORATORY Carbon Dioxide (CO2) 28 22 - 29 mmol/L 01/28/2025 11:23 AM CDT LABORATORY Anion Gap 11 7 - 15 mmol/L 01/28/2025 11:23 AM CDT LABORATORY Urea Nitrogen 30.5(H) 8.0 - 23.0 mg/dL 01/28/2025 11:23 AM CDT [facility] LABORATORY Creatinine 1.08 0.67 - 1.17 mg/dL 01/28/2025 11:23 AM CDT [facility] LABORAT[facility] GFR Estimate 71 >60 mL/min/1.7 3m2 01/28/2025 11:23 AM CDT [facility] LABOR[facility] Comment:eGFR calculated usin 2020 CKD-EPI equation. Calcium 9.5 8.8 - 10.4 mg/dL 01/28/2025 11:23 AM CDT LABORATORY Glucose 98 70 - 99 mg/dL 01/28/2025 11:23 AM CDT LABORATORY Blood STRUCTURE OF RIGHT UPPER LIMB / Unknown Venipuncture / Unknown 01/28/2025 10:54 AM CDT 01/28/2025 10:54 AM CDT us Claudia Loya TAKER OFF HEMP FIBER SULFUR CHLORIDE OPERATOR LAB - BLOOD ORDERABLES Final Result LABORATORY [facility] Acute Care Lab [address] Lab (1st floor, no room number) [place] [address] documented in this encounter Visit Diagnoses Diagnosis Hyponatremia Hyposmolality and/or hyponatremia Primary hypertension Unspecified essential hypertension documented in this encounter Additional Health Concerns Assessment Noted Time PHQ-9 Depression Total Score: 8 11/07/19 25 9:03 AM CDT documented as of this encounter Care Teams Processing Archivist Relationship Specialty Start Date End Date Andrew Erickson MD PCP - General Family Practice 11/12/17 Sandoval Boggs MD [address] [place] [address] [phone] Clinical Neurophysiology 11/03/18 Jordan Erikcson MD [address] [address] 11/03/18 Essence Wise, [facility] [address] [place] [address] Pharmacist Pharmacist 06/01/21 Heidy Harrell DO [address] [place] [address] Neurology 09/28/21 Heidy Harrell DO [address] [place] [address] Assigned Neuroscience Provider 04/17/22 Essence Wise [facility] [address] [place] [address] 24681 Assigned MTM Pharmacist 10/14/23 Pablito Paulson MD [address] [place] [address] Assigned Pulmonology Provider 03/13/24 Claudia Loya APRN SULFUR CHLORIDE OPERATOR [address] [place] [address] Assigned Heart and Vascular Provider 01/11/25 documented as of this encounter
--- OUTSIDE RECORDS SUMMARY | 2025-01-28 10:30 | XMS_ITS | Encounter Summary ---
Author Organization [place] Address [address] [place] [address] Care Team Providers Care Nursing Specialist Name Role Phone Andrew Erickson MD Primary Care Provider [phone] Sandoval Boggs MD Unavailable [phone] Jordan Erickson MD Unavailable [phone] Essence Wise [facility] Unavailable [phone] Heidy Harrell DO Unavailable [phone] Heidy Harrell DO Unavailable [phone] Essence Wise [facility] Unavailable [phone] Pablito Paulson MD Unavailable Claudia Loya APRN HARP MAKER Unavailable [phone] Encounter Details Date Type Department Care Team (Late st Contact Info) Description 01/28/2025 10:30 AM T [facility] Heart [address] [place] [address] Hyponatremia; Primary hypertension Social History [...] AM CDT Legal Sex Male 3:26 AM MACHINE WOOD SANDER Gender Identity Male 04/09/2020 8:36 AM CDT Sexual Orientation Straight 04/09/2020 8: 36 AM CDT documented as of this encounter Plan of Treatment Upcoming Encounters Date Type Department Care Team (Late st Contact Info) Description 07/10/2025 12:00 PM MACHINE WOOD SANDER Office Visit [facility] Neurology Clinic [address] [address] Lary Schmitz, BEHAVIORAL HEALTH TECHNICIAN [facility] [address] [facility] [address] documented as of this encounter Procedures Procedure [...] 01/28/2025 10:54 AM CDT us Claudia Loya BEHAVIORAL HEALTH TECHNICIAN HARP MAKER LAB - BLOOD ORDERABLES Final Result LABORATORY [facility] Acute Care Lab [address] Lab (1st floor, no room number) [place] [address] documented in this encounter Visit Diagnoses Diagnosis Hyponatremia Hyposmolality and/or hyponatremia Primary hypertension Unspecified essential hypertension documented in this encounter Additional Health Concerns Assessment Noted Time PHQ-9 Depression Total Score: 8 11/07/19 25 9:03 AM CDT documented as of this encounter Care Teams Nursing Specialist Relationship Specialty Start Date End Date Andrew Erickson MD PCP - General Family Practice 11/12/17 Sandoval Boggs MD [address] [place] [address] [id number] Clinical Neurophysiology 11/03/18 Jordan Erickson MD [address] [address] 11/03/18 Essence Wise, [facility] [address] [place] [address] Pharmacist Pharmacist 06/01/21 Heidy Harrell DO [address] [place] [address] Neurology 09/28/21 Heidy Harrell DO [address] [place] [address] Assigned Neuroscience Provider 04/17/22 Essence Wise [facility] [address] [place] [address] Assigned MTM Pharmacist 10/14/23 Pablito Paulson MD [address] [place] [address] Assigned Pulmonology Provider 03/13/24 Claudia Loya APRN HARP MAKER [address] [place] [address] Assigned Heart and Vascular Provider 01/11/25 documented as of this encounter
--- OUTSIDE RECORDS SUMMARY | 2025-01-28 11:30 | XMS_ITS | Encounter Summary ---
Author Organization [place] Address [address] [place] [address] Care Team Providers Care Ict Support And Test Engineers Name Role Phone Andrew Erickson MD Primary Care Provider [phone] Sandoval Boggs MD Unavailable [phone] Jordan Erickson MD Unavailable [phone] Essence Wise [facility] Unavailable [phone] Heidy Harrell DO Unavailable [phone] Heidy Harrell DO Unavailable [phone] Essence Wise [facility] Unavailable [phone] Pablito Paulson MD Unavailable Claudia Loya APRN MACHINE PACK ASSEMBLER Unavailable [phone] Reason for Referral * Consultation (Routine) - Pending Review Specialty Diagnoses / Procedures Referred By Ranjeet cole Referred To Contact Cardiovascular Disease Diagnoses Orthostatic hypotension Exertional dyspnea Chronic fatigue Lightheadedness Claudia Loya, EVERETTE MACHINE PACK ASSEMBLER [address] [place] [address] Phone: tel: fax: Referral ID Status Reason Start Date Expiration Date V isits Requested Visits Authorized [id number] Pending Review 01/28/2025 01/28/2026 1 1 Question Answer Follow-up with: Other Pulp Drier - Dr. Veras Reason for follow-up: General Cardiology Patient Scheduling Instructions: [facility] will call you to coordinate your care as prescribed by your provider. If you have concerns about scheduling, please call [phone]. Comments [facility] will call you to coordinate your care as prescribed by your provider. If you have concerns about scheduling, please call [phone]. Reason for Visit * Reason Comments Follow Up Follow up for orthos tatic hypotension, HUFFMAN, fatigue; review testing, medication change * Consultation (Routine) - Pending Review Specialty Diagnoses / Procedures Referred By Ranjeet t Referred To Contact Cardiovascular Disease Diagnoses Orthostatic hypotension Exertional dyspnea Chronic fatigue Claudia Loya APRN CNP [address] [phone] Phone: tel: fax: Referral ID Status Reason Start Date Expiration Date V isits Requested Visits Authorized [id number] Pending Review 12/06/2024 12/06/2025 1 1 Encounter Details Date Type Department Care Team (Latest Contact Info) Description 01/28/2025 11:30 AM CDT Office Visit [facility] Heart Clinic [address] [place] [address] Claudia Loya APRN MACHINE PACK ASSEMBLER [address] [id number] Orthostatic hypotension (Primary Dx); Lightheadedness; Chronic fatigue; Exertional dyspnea; Parkinson's disease, unspecified whether dyskinesia present, unspecified whether manifestations fluctuate (H) Social History Tobacco Use Types Packs/Day Years [...] AM CDT Legal Sex Male 3:26 AM RN EMBEDDED Gender Identity Male 04/09/2020 8:36 AM CDT Sexual Orientation Straight 04/09/2020 8: 36 AM CDT documented as of this encounter Last Filed Vital Signs Vital Sign Reading Time Taken Comments Blood Pressure 142/98 01/28/2025 11:02 AM CDT Pulse 80 01/28/2025 11:02 AM CDT Temperature - - Respiratory Rate - - Oxygen Saturation 99% 01/28/2025 11:02 AM CDT Inhaled Oxygen Concentration - - Weight 97 kg (213 lb 12.8 oz) 01/28/2025 11:02 A M CDT Height 190.5 cm (6' 3) 01/28/2025 11:02 AM CDT Body Mass Index 26.72 01/28/2025 11:02 AM CDT documented in this encounter Patient Instructions * Patient Instructions* Claudia Loya APRN CNP - 01/28/2025 11:30 AM CDT Thanks for participating in a office visit with the [facility] Heart clinic today. No noticeable improvement in symptoms with addition of midodrine, will stop. Continue Florinef Continue statin. Encourage walking. Encourage hydration. Encourage compression stockings and abdominal binder. Follow up in [address] Veras to establish care. Please call my nurse at [phone]. Call with any questions or concerns. Scheduling phone number: [phone]. Reminder: Please bring in all current medications, over the counter supplements and vitamin bottlesto your next appointment. documented in this encounter Progress Notes * Claudia Loya APRN CNP - 01/28/2025 11:30 AM CDT CARDIOLOGY CLINIC NOTE PRIMARY IP ARCHITECT Previous Dr. Cruz patient PRIMARY CARE PHYSICIAN: Andrew Erickson HISTORY OF PRESENT ILLNESS: Kar Aguilar is a very pleasant 74-year-old male with a past medical history significant for Parkinson's disease, degenerative arthritis, gout, obstructive sleep apnea on CPAP, BPH, depression, andpancreatic insufficiency. He was seen in consultation with Dr. Cruz on 09/25/2024 for evaluation of orthostatic hypotensionat the request of neurology. He has had orthostasis for years but now progressive. He has liberalized his salt and started on fludrocortisone 0.1 mg Tuesday. This was further uptitrated to 0.15 mg daily but ultimately reduced to 0.1 mg daily due to hypertension. Echocardiogram on 10/31/2024 showed a normal ejection fraction estimated at 55 to 60%, normal RV size and function, and trace mitral and tricuspid regurgitation. Last ischemic evaluation in 2013 ([facility]) He was last seen in follow up on 12/06/2024 for ongoing lightheadedness, exertional dyspnea, fatigueand decline in stamina. He had positive orthostatics and midodrine 5 mg TID was added. To rule out ischemia he underwent a negative nuclear stress test. He returns to the office today for follow-up. Unfortunately, he noticed no improvement in his lightheadedness after starting midodrine. Symptoms are primarily when bending over, although not functionally limiting. He remains very active without routine exercise. For example, he had 8 trees cut downin his yard and he along with his sons and grandsons are cutting up the remaining wood. He is able to tolerate activity for several hours before needing to rest. He unfortunately, did have a accidentwith a limb hitting his leg. He did seek medical attention that showed no significant injury. Today, he denies any cardiac symptoms including chest pain, shortness of breath, palpitations, PND,orthopnea, syncope or syncope. He is quite emotional today as his son recently on 01/15/2025. Blood pressure today is mildly elevated at 142/98 BMP today shows sodium 139, potassium 4.4, BUN 30.5, creatinine 1.08 and GFR 71 He is faithful with CPAP Compliant with all medications. PAST MEDICAL HISTORY: Past Medical History: Diagnosis [...] apnea Uses a CPAP Syncope Uncomplicated asthma MEDICATIONS: Current Outpatient Medications Medication Sig Dispense Refill allopurinol (ZYLOPRIM) 300 MG tablet Take 300 mg by mouth daily [id number]-[id number] (CREON 24) 268[address]-735[address] units CPEP per EC capsule Take 1 capsule by mouth 3 times daily (with meals) busPIRone (BUSPAR) 10 MG tablet Take 10 mg by mouth 3 times daily carbidopa-levodopa (SINEMET CR) 50-200 MG CR tablet Take 1 tablet by mouth at bedtime. 90 tablet 3 carbidopa-levodopa (SINEMET) 25-100 MG [...] pm. fludrocortisone (FLORINEF) 0.1 MG tablet Take 1 tab (0.1mg) daily 90 tablet 3 gabapentin (NEURONTIN) 300 MG capsule Take 300 mg by mouth at bedtime. Multiple Vitamin (MULTI-VITAMINS) TABS Take 1 tablet by mouth daily [place]-3 Fatty Acids (FISH OIL) 1200 MG capsule Take 1,200 mg by mouth daily pravastatin (PRAVACHOL) 40 MG tablet Take 40 mg by mouth daily 0 RESTASIS 0.05 % ophthalmic emulsion Place 1 drop into both eyes 2 times daily No current facility-administered medications for this visit. SOCIAL HISTORY: I have reviewed this patient's social history and updated it with pertinent information if needed. Kar Cole Jeff reports that he quit smoking about 43 years ago. His smoking use included cigarettes. He has never used smokeless tobacco. He reports current alcohol use of about 15.0 standard drinksof alcohol per week. He reports that he does not use drugs. PHYSICAL EXAM: Pulse: [80] 80 BP: (142)/(98) 142/98 SpO2: [99 %] 99 % 213 lbs 12.8 oz Constitutional: alert, no distress Respiratory: Good bilateral air entry Cardiovascular: Regular rate and rhythm GI: nondistended Neuropsychiatric: appropriate affact ASSESSMENT/PLAN: Pertinent issues addressed/ reviewed during this cardiology visit Orthostatic hypotension -blood pressure mildly elevated today. No significant improvement with the addition of midodrine, will stop. Continue on Florinef. Encourage hydration. Encourage compression stockings and abdominal binder. Exertional dyspnea/fatigue -etiology unclear, likely multifactorial due to Parkinson's, obstructivesleep apnea, deconditioning. Echocardiogram normal. Nuclear stress test negative for ischemia. Parkinson's disease -on carbidopa/levodopa. Follows with neurology Obstructive sleep apnea -on CPAP Hyponatremia -resolved. Sodium 139 today. Follow-up in [address] Veras to establish care due to Dr. Cruz's senior care. It was a pleasure seeing this patient in clinic today. Please do not hesitate to contact me with any future questions. Claudia Loya APRN, MACHINE PACK ASSEMBLER Cardiology - [facility] Heart 01/28/2025 The level of medical decision making during this visit was of moderate complexity. This note was completed in part using dictation via the [employer] voice recognition software. Some word and grammatical errors may occur and must be interpreted in the appropriate clinical context. If there are any questions pertaining to this issue, please contact me for further clarification. documented in this encounter Plan of Treatment Upcoming Encounters Date Type Department Care Team (Late st Contact Info) Description 07/10/2025 12:00 PM RN EMBEDDED Office Visit [facility] Neurology Clinic [facility] [address] [place] [address] Lary Schmitz APRN MACHINE PACK ASSEMBLER [address] [facility] [id number] [address] Scheduled Referrals Name Type Priority Associated Diagnoses Orde r Schedule Follow-Up with Cardiology Referral Routine: Next available opening Orthostatic hypotension Exertional dyspnea Chronic fatigue Lightheadedness Expected: 07/30/2025 (Approximate), Expires: 01/28/2026 documented as of this encounter Visit Diagnoses Diagnosis Orthostatic hypotension- Primary Lightheadedness Dizziness and giddiness Chronic fatigue Other malaise and fatigue Exertional dyspnea Other dyspnea and respiratory abnormality Parkinson's disease, unspecified whether dyskinesia present, unspecified whether manifestations fluctuate (H) documented in this encounter Additional Health Concerns Assessment Noted Time PHQ-9 Depression Total Score: 8 11/07/19 25 9:03 AM CDT documented as of this encounter Care Teams Ict Support And Test Engineers Relationship Specialty Start Date End Date Andrew Erickson MD PCP - General Family Practice 11/12/17 Sandoval Boggs MD [address] [place] [address] Clinical Neurophysiology 11/03/18 Jordan Erickson MD [address] [address] 11/03/18 Essence Wise [facility] [address] [place] [address] Pharmacist Pharmacist 06/01/21 Heidy Harrell DO [address] [place] [address] Neurology 09/28/21 Heidy Harrell DO [address] [place] [address] Assigned Neuroscience Provider 04/17/22 Essence Wise [facility] [address] [place] [address] Assigned MTM Pharmacist 10/14/23 Pablito Paulson MD [address] [place] [address] Assigned Pulmonology Provider 03/13/24 Claudia Loya APRN [facility] [address] [facility] [place] [address] Assigned Heart and Vascular Provider 01/11/25 documented as of this encounter
--- OUTSIDE RECORDS SUMMARY | 2025-01-28 11:30 | XMS_ITS | Encounter Summary ---
Author Organization [place] Address [address] [place] [address] Care Team Providers Care Foot Doctor Name Role Phone Andrew Erickson MD Primary Care Provider [phone] Sandoval Boggs MD Unavailable [phone] Jordan Erickson MD Unavailable [phone] Essence Wise [facility] Unavailable [phone] Heidy Harrell DO Unavailable [phone] Heidy Harrell DO Unavailable [phone] Essence Wise [facility] Unavailable [phone] Pablito Paulson MD Unavailable Claudia Loya APRN LIGHT RAIL OPERATOR Unavailable [phone] Reason for Referral * Consultation (Routine) - Pending Review Specialty Diagnoses / Procedures Referred By Ranjeet cole Referred To Contact Cardiovascular Disease Diagnoses Orthostatic hypotension Exertional dyspnea Chronic fatigue Lightheadedness Claudia Loya, EVERETTE LIGHT RAIL OPERATOR [address] [place] [address] Phone: tel: fax: Referral ID Status Reason Start Date Expiration Date V isits Requested Visits Authorized [id number] Pending Review 01/28/2025 01/28/2026 1 1 Question Answer Follow-up with: Other Log Buncher - Dr. Veras Reason for follow-up: General Cardiology Patient Scheduling Instructions: [facility] will call you to coordinate your care as prescribed by your provider. If you have concerns about scheduling, please call [phone]. Comments [facility] will call you to coordinate your care as prescribed by your provider. If you have concerns about scheduling, please call [phone]. Reason for Visit * Reason Comments Follow Up Follow up for orthos tatic hypotension, HUFFMAN, fatigue; review testing, medication change * Consultation (Routine) - Pending Review Specialty Diagnoses / Procedures Referred By Ranjeet t Referred To Contact Cardiovascular Disease Diagnoses Orthostatic hypotension Exertional dyspnea Chronic fatigue Claudia Loya APRN CNP [address] [id number] Phone: tel: fax: Referral ID Status Reason Start Date Expiration Date V isits Requested Visits Authorized [id number] Pending Review 12/06/2024 12/06/2025 1 1 Encounter Details Date Type Department Care Team (Latest Contact Info) Description 01/28/2025 11:30 AM CDT Office Visit [facility] Heart Clinic [address] [place] [address] Claudia Loya APRN LIGHT RAIL OPERATOR [address] [phone] Orthostatic hypotension (Primary Dx); Lightheadedness; Chronic fatigue; [...] AM CDT Legal Sex Male 3:26 AM CARBON CAPTURE POWER PLANT ENGINEER Gender Identity Male 04/09/2020 8:36 AM [...] participating in a office visit with the [facility] Heart clinic today. No noticeable improvement in symptoms with addition of midodrine, will stop. Continue Florinef Continue statin. Encourage walking. Encourage hydration. Encourage compression stockings and abdominal binder. Follow up in [address] Veras to establish care. Please call my nurse at [phone]. Call with any questions or concerns. Scheduling phone number: [phone]. Reminder: Please bring in all current medications, over the counter supplements and vitamin bottlesto your next appointment. documented in this encounter Progress Notes * Claudia Loya APRN CNP - 01/28/2025 11:30 AM CDT CARDIOLOGY CLINIC NOTE PRIMARY JOURNEYMAN ELECTRICIAN Previous Dr. Cruz patient PRIMARY CARE PHYSICIAN: [...] tricuspid regurgitation. Last ischemic evaluation in 2013 ([facility]) He was last seen in follow up [...] tablet Take 300 mg by mouth daily clktgtp-zbluzw-mscevveq (CREON 24) 56[address]-16501 units CPEP per EC capsule Take 1 [...] TABS Take 1 tablet by mouth daily [place]-3 Fatty Acids (FISH OIL) 1200 MG capsule [...] to establish care due to Dr. Cruz's custodial. It was a pleasure seeing this patient in clinic today. Please do not hesitate to contact me with any future questions. Claudia Loya APRN, LIGHT RAIL OPERATOR Cardiology - [facility] 01/28/2025 The level of medical decision making during this visit was of moderate complexity. This note was completed in part using dictation via the [employer] voice recognition software. Some word and grammatical errors may occur and must be interpreted in the appropriate clinical context. If there are any questions pertaining to this issue, please contact me for further clarification. documented in this encounter Plan of Treatment Upcoming Encounters Date Type Department Care Team (Late st Contact Info) Description 07/10/2025 12:00 PM CARBON CAPTURE POWER PLANT ENGINEER Office Visit [facility] Neurology Clinic [facility] [address] [place] [address] Lary Schmitz APRN LIGHT RAIL OPERATOR [address] [facility] [id number] [place] [address] Scheduled Referrals Name Type Priority Associated Diagnoses [...] documented as of this encounter Care Teams Foot Doctor Relationship Specialty Start Date End Date Andrew Erickson MD PCP - General Family Practice 11/12/17 Sandoval Boggs MD [address] [place] [address] Clinical Neurophysiology 11/03/18 Jordan Erickson MD [address] [address] 11/03/18 Essence Wise [facility] [address] [place] [address] Pharmacist Pharmacist 06/01/21 Heidy Harrell DO [address] [place] [address] Neurology 09/28/21 Heidy Harrell DO [address] [place] [address] Assigned Neuroscience Provider 04/17/22 Essence Wise [facility] [address] [place] [address] Assigned MTM Pharmacist 10/14/23 Pablito Paulson MD [address] [place] [address] Assigned Pulmonology Provider 03/13/24 Claudia Loya APRN [facility] [address] [facility] [place] [address] Assigned Heart and Vascular Provider 01/11/25 documented as of this encounter
--- NOTE | 2025-02-08 09:15 | CRLHL7_ITS ---
For Patients: As a result of the Century Cures Act, medical imaging exams and procedure reports are released immediately into your electronic medical record. You may view this report before your referring provider. If you have questions, please contact your health care provider. INDICATION: Right flank pain COMPARISON: 07/31/2024 TECHNIQUE: Real time ware scale imaging and color Doppler analysis was performed of the right upper quadrant. FINDINGS: Exam is limited by excess bowel gas throughout the abdomen. The pancreas and IVC are not well visualized. Atherosclerotic changes in the aorta noted. No hydronephrosis regarding the right kidney. The right kidney measures 12.4 cm. Visualized liver is unremarkable without intrahepatic mass. Liver measures 15.0 cm. Visualized gallbladder unremarkable. Gallbladder wall measures 2 millimeters and common bile duct measures 5 millimeters. No abnormal vascularity. IMPRESSION: Limited exam due to excess intra-abdominal bowel gas reveals no abnormality. Dictated by Tr Wadsworth MD @ 02/09/2025 9:15:48 PM (Electronically Signed)
--- OUTSIDE RECORDS SUMMARY | 2025-02-08 09:15 | XMS_ITS | Encounter Summary ---
Author Organization [place] Address [address] [place] [address] Care Team Providers Care Layout Technician Name Role Phone Andrew Erickson MD Primary Care Provider [phone] Sandoval Boggs MD Unavailable [phone] Jordan Erickson MD Unavailable [phone] Essence Wise [facility] Unavailable +[phone] Heidy Harrell DO Unavailable [phone] Heidy Harrell DO Unavailable [phone] Essence Wise [facility] Unavailable [phone] Pablito Paulson MD Unavailable Phuc Cruz MD Unavailable Unavailab Phuc Barraza MD Unavailable Unavailab Claudia Rodrigez APRN ASSEMBLY INSPECTOR HELPER Unavailable [phone] Encounter Details Date Type Department Care Team (Late st Contact Info) Description 07/23/2024 External Order Results [facility] [address] [place] [address] Outside, Provider Social History Tobacco Use Types [...] AM CDT Legal Sex Male 3:26 AM PRE PRESS PROOFER Gender Identity Male 04/09/2020 8:36 AM CDT Sexual Orientation Straight 04/09/2020 8: 36 AM CDT documented as of this encounter Plan of Treatment Upcoming Encounters Date Type Department Care Team (Late st Contact Info) Description 07/10/2025 12:00 PM PRE PRESS PROOFER Office Visit [facility] Neurology Clinic [address] [address] Lary Schmitz, MANAGER BEHAVIOR [facility] [address] [facility] [place] [address] documented as of this encounter Procedures Procedure Name Priority Date/Time Associated Diagnosis Comments IONIZED CALCIUM Routine 07/23/2024 12:16 PM PRE PRESS PROOFER BASIC METABOLIC PANEL Routine 07/23/2024 12:16 PM PRE PRESS PROOFER WBC AND DIFFERENTIAL Routine 07/20/2024 11:16 PM PRE PRESS PROOFER CBC WITH PLATELETS Routine 07/20/2024 11 :16 PM PRE PRESS PROOFER ROUTINE UA WITH MICROSCOPIC Routine 07/20/2024 2:00 AM PRE PRESS PROOFER TSH Routine 06/26/2024 10:28 AM PRE PRESS PROOFER TESTOSTERONE TOTAL Routine 06/26/2024 10 :28 AM PRE PRESS PROOFER LIPID PROFILE Routine 06/26/2024 10:28 AM PRE PRESS PROOFER CREATININE Routine 06/26/2024 10:28 AM PRE PRESS PROOFER documented in this encounter Results * Ionized Calcium (07/23/2024 12:16 PM PRE PRESS PROOFER) Calcium Ionized (External) 1.13 1.11 - 1.33 mmol/L NON-INTERFACED (ONBASE SCANS) Blood BLOOD SPECIMEN / Unknown 07/23/2024 12:16 PM PRE PRESS PROOFER Narrative BREEZE PFT - 09/26/2024 10:11 AM PRE PRESS PROOFER Verified by Nieves Arredondo on 09/26/2024. Provider Outside LAB - BLOOD ORDERABLES Edited R Interlude - [employer] NIKOLE PFT NON-INTERFACED (ONBASE SCANS) * (ABNORMAL) Basic metabolic panel (07/23/2024 12:16 PM PRE PRESS PROOFER) Sodium (External) 135(L) 138 - 146 mmol/L [...] BLOOD SPECIMEN / Unknown 07/23/2024 12:16 PM PRE PRESS PROOFER Narrative SERENITYEZE PFT - 09/26/2024 10:11 AM PRE PRESS PROOFER Verified by Nieves Arredondo on 09/26/2024. us Provider Outside LAB - BLOOD ORDERABLES Edited Libra [employer] NIKOLE PFT NON-INTERFACED (ONBASE SCANS) * (ABNORMAL) CBC with platelets (07/20/2024 11:16 PM PRE PRESS PROOFER) WBC Count (External) 7.88 4.50 - 11.00 [...] BLOOD SPECIMEN / Unknown 07/20/2024 11:16 PM PRE PRESS PROOFER Narrative NIKOLE RAPHAEL - 09/26/2024 10:26 AM PRE PRESS PROOFER Verified by Nieves Arredondo on 09/26/2024. us Provider Outside LAB - BLOOD ORDERABLES Edited R esult - Final NIKOLE LIM NON-INTERFACED (ONBASE SCANS) * (ABNORMAL) WBC and differential (07/20/2024 11:16 PM PRE PRESS PROOFER) % Neutrophils (External) 68.7 42.0 - 72.0 [...] BLOOD SPECIMEN / Unknown 07/20/2024 11:16 PM PRE PRESS PROOFER Narrative NIKOLE PFDouglas - 09/26/2024 10:26 AM PRE PRESS PROOFER Verified by Nieves Arredondo on 09/26/2024. us Provider Outside LAB - BLOOD ORDERABLES Edited R esult - Final NIKOLE PFDouglas NON-INTERFACED (ONBASE SCANS) * UA with Microscopic (07/20/2024 2:00 AM PRE PRESS PROOFER) Color Urine (External) Yellow Yellow NON-INTERFAC ED (ONBASE SCANS) Appearance Urine (External) Clear Clear NON-INTERFAC ED (ONBASE SCANS) Glucose Urine (External) Negative Negative NON-INTERFAC ED (ONBASE SCANS) Bilirubin Urine (External) Negative Negative NON-INTERFAC ED (ONBASE SCANS) Specific [place] Urine (External) 1.010 1.000 - 1.030 NON-INTERFAC [...] ED (ONBASE SCANS) Urine 07/20/2024 2:00 AM PRE PRESS PROOFER Narrative BREEZE PFT - 07/20/2024 2:00 AM PRE PRESS PROOFER Verified by Nieves Arredondo on 09/26/2024. Verified by Feliberto Rankin on 09/26/2024. Provider Outside LAB - URINE ORDERABLES Edited Jovie Performing Organization Address [facility] Co de Phone Number SERENITYEZE PFT NON-INTERFACED (ONBASE SCANS) * TSH (06/26/2024 10:28 AM PRE PRESS PROOFER) TSH (External) 2.720 0.270 - 4.200 uIU/mL NON-INTERFACED (ONBASE SCANS) Blood BLOOD SPECIMEN / Unknown 06/26/2024 10:28 AM PRE PRESS PROOFER Narrative SERENITYEZE PFT - 09/26/2024 10:26 AM PRE PRESS PROOFER Verified by Nieves Arredondo on 09/26/2024. Provider Outside LAB - BLOOD ORDERABLES Edited Jovie Performing Organization Address [place]/[facility]/ZIP Co de Phone Number SERENITYEZE PFT NON-INTERFACED (ONBASE SCANS) * Lipid Profile (06/26/2024 10:28 AM PRE PRESS PROOFER) Cholesterol (External) 182 90 - 199 mg/dL NON-INTERFACED (ONBASE SCANS) LDL Cholesterol Calculated (External) 73 <100 mg/dL NON-INTERFACED (ONBASE SCANS) HDL Cholesterol (External) 93 >=40 mg/dL NON-INTERFACED (ONBASE SCANS) Blood BLOOD SPECIMEN / Unknown 06/26/2024 10:28 AM PRE PRESS PROOFER Narrative BREEZE PFT - 09/26/2024 10:26 AM PRE PRESS PROOFER Verified by Nieves Arredondo on 09/26/2024. Result [facility] [place] Provider Outside LAB - BLOOD ORDERABLES Edited R [facility] Performing Organization Address [facility] Co de Phone Number BREEZE PFT NON-INTERFACED (ONBASE SCANS) * (ABNORMAL) Creatinine (06/26/2024 10:28 AM PRE PRESS PROOFER) Creatinine (External) 1.7(H) 0.5 - 1.5 mg/dl NON-INTERFACED (ONBASE SCANS) Blood BLOOD SPECIMEN / Unknown 06/26/2024 10:28 AM PRE PRESS PROOFER Narrative BREEZE PFT - 09/26/2024 10:26 AM PRE PRESS PROOFER Verified by Nieves Arredondo on 09/26/2024. Result [facility] [place] Provider Outside LAB - BLOOD ORDERABLES Edited [facility] Performing Organization Address [facility] de Phone Number BREEZE PFT NON-INTERFACED (ONBASE SCANS) * (ABNORMAL) Testosterone total (06/26/2024 10:28 AM PRE PRESS PROOFER) Testosterone Total (External) 253(L) 300 - 720 ng/dL NON-INTERFACE D (ONBASE SCANS) Blood BLOOD SPECIMEN / Unknown 06/26/2024 10:28 AM PRE PRESS PROOFER Narrative BREEZE PFT - 09/26/2024 10:26 AM PRE PRESS PROOFER Verified by Nieves Arredondo on 09/26/2024. Provider Outside LAB - BLOOD ORDERABLES Edited [facility] Performing Organization Address [facility] Co de Phone Number BREEZE PFT NON-INTERFACED (ONBASE SCANS) documented in this encounter Visit Diagnoses Not on filedocumented in this encounter Additional Health Concerns Assessment Noted Time PHQ-9 Depression Total Score: 14 021 7:02 AM CDT documented as of this encounter Care Teams Layout Technician Relationship Specialty Start Date End Date Andrew Erickson MD PCP - General Family Practice 11/12/17 Sandoval Boggs MD [address] [place] [address] Clinical Neurophysiology 11/03/18 Jordan Erickson MD [address] [address] 11/03/18 Essence Wise [facility] [address] [place] [address] Pharmacist Pharmacist 06/01/21 Heidy Harrell DO [address] [place] [address] Neurology 09/28/21 Heidy Harrell DO [address] [place] [address] Assigned Neuroscience Provider 04/17/22 Essence Wise [facility] [address] [place] [address] Assigned MTM Pharmacist 10/14/23 Pablito Paulson MD [address] [place] [address] Assigned Pulmonology Provider 03/13/24 Phuc Cruz MD [address] [place] [address] Cardiovascular Disease 09/20/24 01/02/25 Phuc Cruz MD Assigned Heart and Vascular Provider 10/14/24 01/10/25 Claudia Loya APRN [facility] [address] [id number] Assigned Heart and Vascular Provider 01/11/25 documented as of this encounter
--- OUTSIDE RECORDS SUMMARY | 2025-02-08 09:15 | XMS_ITS | Encounter Summary ---
Author Organization [place] Address [address] [facility] [place] [address] Care Team Providers Care Arc Trimmer Name Role Phone Andrew Erickson MD Primary Care Provider [phone] Sandoval Boggs MD Unavailable [phone] Jordan Erickson MD Unavailable [phone] Essence Wise [facility] Unavailable [phone] Heidy Harrell DO Unavailable [phone] Heidy Harrell DO Unavailable [phone] Essence Wise [facility] Unavailable [phone] Pablito Paulson MD Unavailable Phuc Cruz MD Unavailable Unavailab Phuc Barraza MD Unavailable Unavailab Claudia Rodrigez APRN DIE TURNER Unavailable [phone] Encounter Details Date Type Department Care Team (Late st Contact Info) Description 09/26/2024 External Order Results [facility] [address] [place] [address] Outside, Provider Social History Tobacco Use Types [...] AM CDT Legal Sex Male 3:26 AM SEAT MENDER Gender Identity Male 04/09/2020 8:36 AM CDT Sexual Orientation Straight 04/09/2020 8: 36 AM CDT documented as of this encounter Plan of Treatment Upcoming Encounters Date Type Department Care Team (Late st Contact Info) Description 07/10/2025 12:00 PM SEAT MENDER Office Visit [facility] Neurology Clinic [address] [address] Lary Schmitz, MARKET REPORTER [facility] [address] [facility], [place] [address] documented as of this encounter Procedures Procedure Name Priority Date/Time Associated Diagnosis Comments BASIC METABOLIC PANEL Routine 07/20/2024 11:16 PM SEAT MENDER documented in this encounter Results * (ABNORMAL) Basic metabolic panel (07/20/2024 11:16 PM SEAT MENDER) Sodium (External) 138 135 - 149 mmol/L [...] BLOOD SPECIMEN / Unknown 07/20/2024 11:16 PM SEAT MENDER Narrative NIKOLE PFT - 07/20/2024 11:16 PM SEAT MENDER Verified by Feliberto Rankin on 09/26/2024. us Provider Outside LAB - BLOOD ORDERABLES Edited R esult - Final NIKOLE PFT NON-INTERFACED (ONBASE SCANS) documented in this encounter Visit Diagnoses Not on filedocumented in this encounter Additional Health Concerns Assessment Noted Time PHQ-9 Depression Total Score: 14 021 7:02 AM CDT documented as of this encounter Care Teams Arc Trimmer Relationship Specialty Start Date End Date Andrew Erickson MD PCP - General Family Practice 11/12/17 Sandoval Boggs MD [address] [place] [address] Clinical Neurophysiology 11/03/18 Jordan Erickson MD [address] [address] 11/03/18 Essence Wise [facility] [address] [place] [address] Pharmacist Pharmacist 06/01/21 Heidy Harrell DO [address] [place] [address] Neurology 09/28/21 Heidy Harrell DO [address] [place] [address] Assigned Neuroscience Provider 04/17/22 Essence Wise [facility] [address] [place] [address] Assigned MTM Pharmacist 10/14/23 Pablito Paulson MD [address] [place] [address] Assigned Pulmonology Provider 03/13/24 Phuc Cruz MD [address] [place] [address] Cardiovascular Disease 09/20/24 01/02/25 Phuc Cruz MD Assigned Heart and Vascular Provider 10/14/24 01/10/25 Claudia Loya APRN DIE TURNER [address] [place] [address] Assigned Heart and Vascular Provider 01/11/25 documented as of this encounter
--- OUTSIDE RECORDS SUMMARY | 2025-02-08 09:15 | XMS_ITS | Encounter Summary ---
Author Organization [place] Address [address] [place] [address] Care Team Providers Care Clerk Of Superior Court Name Role Phone Andrew Erickson MD Primary Care Provider [phone] Sandoval Boggs MD Unavailable [phone] Jordan Erickson MD Unavailable [phone] Erich Gillette MD Unavailable [phone] Essence Wise [facility] Unavailable [phone] Heidy Harrell DO Unavailable [phone] Heidy Harrell DO Unavailable [phone] Essence Wise [facility] Unavailable [phone] Pablito Paulson MD Unavailable Phuc Cruz MD Unavailable Unavailab Phuc Barraza MD Unavailable Unavailab Claudia Rodrigez APRN WARDROBE MISTRESS Unavailable [phone] Encounter Details Date Type Department Care Team (Late st Contact Info) Description 02/14/2024 [facility] [address] [place] [address] Rosa Reina RN Social History [...] AM CDT Legal Sex Male 3:26 AM PROCESSING TALC AND BORATE SUPERVISOR Gender Identity Male 04/09/2020 8:36 AM CDT Sexual Orientation Straight 04/09/2020 8: 36 AM CDT documented as of this encounter Plan of Treatment Upcoming Encounters Date Type Department Care Team (Late st Contact Info) Description 07/10/2025 12:00 PM PROCESSING TALC AND BORATE SUPERVISOR Office Visit [facility] Neurology [address] [address] Lary Schmitz, CHROMOSOMAL DISORDERS COUNSELOR WARDROBE MISTRESS [address] [facility] [id number] [place], [place] [address] documented as of this encounter Visit Diagnoses Not on filedocumented in this encounter Additional Health Concerns Assessment Noted Time PHQ-9 Depression Total Score: 14 021 7:02 AM CDT documented as of this encounter Care Teams Clerk Of Superior Court Relationship Specialty Start Date End Date Andrew Erickson MD PCP - General Family Practice 11/12/17 Sandoval Boggs MD [address] [place] [address] Clinical Neurophysiology 11/03/18 Jordan Erickson MD [facility] [address] [place] [address] 11/03/18 Erich Gillette MD [address] [address] Assigned Sleep Provider 06/13/20 06/12/24 Essence Wise [facility] [address] [place] [address] Pharmacist Pharmacist 06/01/21 Heidy Harrell DO [address] [place] [address] Neurology 09/28/21 Heidy Harrell DO [address] [place] [address] Assigned Neuroscience Provider 04/17/22 Essence Wise [facility] [address] [place] [address] Assigned MTM Pharmacist 10/14/23 Pablito Paulson MD [address] [place] [address] Assigned Pulmonology Provider 03/13/24 Phuc Cruz MD [address] [place] [address] Cardiovascular Disease 09/20/24 01/02/25 Phuc Cruz MD Assigned Heart and Vascular Provider 10/14/24 01/10/25 Claudia Loya APRN WARDROBE MISTRESS [address] [address] Assigned Heart and Vascular Provider 01/11/25 documented as of this encounter
--- OUTSIDE RECORDS SUMMARY | 2025-02-08 09:15 | XMS_ITS | Encounter Summary ---
Author Organization [place] Address [address] [place] [address] Care Team Providers Care Test Eng Name Role Phone Andrew Erickson MD Primary Care Provider [phone] Sandoval Boggs MD Unavailable [phone] Jordan Erickson MD Unavailable [phone] Sandoval Boggs MD Unavailable [phone] Erich Gillette MD Unavailable [phone] Essence Wise [facility] Unavailable [phone] Manish Catherine PA-C Unavailable [phone] Heidy Harrell DO Unavailable [phone] Heidy Harrell DO Unavailable [phone] Essence Wise [facility] Unavailable +[phone] Heidy Harrell DO Unavailable [phone] Essence Wise [facility] Unavailable [phone] Essence Wise [facility] Unavailable [phone] Pablito Paulson MD Unavailable Phuc Cruz MD Unavailable Unavailab Phuc Barraza MD Unavailable Unavailab Claudia Rodrigez APRN, CNP Unavailable [phone] Encounter Details Date Type Department Care Team (Late st Contact Info) Description 05/11/2021 MyC Medical Advice [facility] [place] [address] [place] [phone] Manish Catherine PA-C [address] [place] [address] Social History Tobacco Use Types Packs/Day Years Used Date Smoking Tobacco: Never Smokeless Tobacco: Never Alcohol Use Standard Drinks/Week Comments Yes 0 (1 standard drink = 0.6 oz pur e alcohol) occas PHQ-2 Answer Date Recorded PHQ-2 Score 2 08/28/2019 Sex and Gender Information Value Date Recorded Sex Assigned at Male 04/09/2020 8:36 AM CDT Legal Sex Male 3:26 AM INTAKE ASSESSOR Gender Identity Male 04/09/2020 8:36 AM CDT [...] st Contact Info) Description 07/10/2025 12:00 PM INTAKE ASSESSOR Office Visit [facility] Neurology Clinic [place] [address] [place] [phone] Lary Schmitz, FORESTRY FOREMAN NUTRITIONAL SERVICES HOST [address] [place] [address] [id number] [address] documented as of this encounter Visit Diagnoses Not on filedocumented in this encounter Additional Health Concerns Assessment Noted Time PHQ-9 Depression Total Score: 12 020 6:56 AM INTAKE ASSESSOR documented as of this encounter Care Teams Test Eng Relationship Specialty Start Date End Date Andrew Erickson MD PCP - General Family Practice 11/12/17 Sandoval Boggs MD [address] [place] [address] Clinical Neurophysiology 11/03/18 Jordan Erickson MD [address] [address] 11/03/18 Sandoval Boggs MD [address] [place] [address] Assigned Neuroscience Provider 06/13/20 09/19/21 Erich Gillette MD [address] [address] Assigned Sleep Provider 06/13/20 06/12/24 Essence Wise [facility] [address] [place] [address] Pharmacist Pharmacist 06/01/21 Manish Catherine PA-C [address] [address] Assigned Neuroscience Provider 09/20/21 11/14/21 Heidy Harrell DO [address] [place] [address] Neurology 09/28/21 Heidy Harrell DO [address] [place] [address] Assigned Neuroscience Provider 04/17/22 Essence Wise [facility] [address] [place] [address] Assigned MTM Pharmacist 01/16/22 05/07/22 Heidy Harrell DO [address] [place] [address] Assigned Neuroscience Provider 11/15/21 04/16/22 Essence Wise [facility] [address] [place] [address] Assigned MTM Pharmacist 05/19/22 07/01/23 Essence Wise [facility] [address] [place] [address] Assigned MTM Pharmacist 10/14/23 Pablito aPulson MD [address] [place] [address] Assigned Pulmonology Provider 03/13/24 Phuc Cruz MD [address] [place] [address] Cardiovascular Disease 09/20/24 01/02/25 Phuc Cruz MD Assigned Heart and Vascular Provider 10/14/24 01/10/25 Claudia Loya APRN NUTRITIONAL SERVICES HOST [address] [place] [address] Assigned Heart and Vascular Provider 01/11/25 documented as of this encounter
--- OUTSIDE RECORDS SUMMARY | 2025-02-08 09:15 | XMS_ITS | Encounter Summary ---
Author Organization [place] Address [address] [place] [address] Care Team Providers Care Supervisor Boat Outfitting Name Role Phone Andrew Erickson MD Primary Care Provider [phone] Sandoval Boggs MD Unavailable [phone] Jordan Erickson MD Unavailable [phone] Sandoval Boggs MD Unavailable [phone] Erich Gillette MD Unavailable [phone] Essence Wise [facility] Unavailable [phone] Manish Catherine PA-C Unavailable [phone] Heidy Harrell DO Unavailable [phone] Heidy Harrell DO Unavailable [phone] Essence Wise [facility] Unavailable [phone] Heidy Harrell DO Unavailable [phone] Essence Wise [facility] Unavailable [phone] Essence Wise [facility] Unavailable [phone] Pablito Paulson MD Unavailable Phuc Cruz MD Unavailable Unavailab Phuc Barraza MD Unavailable Unavailab Claudia Rodrigez APRN, CNP Unavailable [phone] Encounter Details Date Type Department Care Team (Late st Contact Info) Description 06/01/2021 MyC Medical Advice [facility] Neurology Clinic [address] [facility] 3rd [place] [phone] Essence Wise, [facility] [address] [place] [address] Social History Tobacco Use Types Packs/Day Years [...] AM CDT Legal Sex Male 3:26 AM INSPECTOR POISING Gender Identity Male 04/09/2020 8:36 AM CDT Sexual Orientation Straight 04/09/2020 8: 36 AM CDT documented as of this encounter Plan of Treatment Upcoming Encounters Date Type Department Care Team (Late st Contact Info) Description 07/10/2025 12:00 PM INSPECTOR POISING Office Visit [facility] Neurology [address] [address] Lary Schmitz, INJECTION MOLD TOOLING TECHNICIAN [facility] [address] [facility] [id number] [place] [address] documented as of this encounter Visit Diagnoses Not on filedocumented in this encounter Additional Health Concerns Assessment Noted Time PHQ-9 Depression Total Score: 14 021 7:02 AM CDT documented as of this encounter Care Teams Supervisor Boat Outfitting Relationship Specialty Start Date End Date Andrew Erickson MD PCP - General Family Practice 11/12/17 Sandoval Boggs MD [address] [place] [address] Clinical Neurophysiology 11/03/18 Jordan Erickson MD [address] [address] 11/03/18 Sandoval Boggs MD [address] [place] [address] Assigned Neuroscience Provider 06/13/20 09/19/21 Erich Gillette MD [address] [facility] [address] [place] [address] Assigned Sleep Provider 06/13/20 06/12/24 Essence Wise, [facility] [address] [place] [address] Pharmacist Pharmacist 06/01/21 Manish Catherine PA-C [address] [facility] [address] [address] Assigned Neuroscience Provider 09/20/21 11/14/21 Heidy Harrell DO [address] [place] [address] Neurology 09/28/21 Heidy Harrell DO [address] [place] [address] Assigned Neuroscience Provider 04/17/22 Essence Wise [facility] [address] [place] [address] Assigned MTM Pharmacist 01/16/22 05/07/22 Heidy Harrell DO [address] [place] [address] Assigned Neuroscience Provider 11/15/21 04/16/22 Essence Wise [facility] [address] [place] [address] Assigned MTM Pharmacist 05/19/22 07/01/23 Essence Wise [facility] [address] [place] [address] Assigned MTM Pharmacist 10/14/23 Pablito Paulson MD [address] [place] [address] Assigned Pulmonology Provider 03/13/24 Phuc Cruz MD [address] [place] [address] Cardiovascular Disease 09/20/24 01/02/25 Phuc Cruz MD Assigned Heart and Vascular Provider 10/14/24 01/10/25 Claudia Loya APRN APPLICATIONS SYSTEMS ANALYST [address] [place] [address] Assigned Heart and Vascular Provider 01/11/25 documented as of this encounter
--- OUTSIDE RECORDS SUMMARY | 2025-02-08 09:15 | XMS_ITS | Encounter Summary ---
Author Organization [facility] Address [address] [place] [address] Care Team Providers Care Carpet Weaver Name Role Phone Andrew Erickson MD Primary Care Provider [phone] Sandoval Boggs MD Unavailable [phone] Jordan Erickson MD Unavailable [phone] Sandoval Boggs MD Unavailable [phone] Erich Gillette MD Unavailable [phone] Essence Wise [facility] Unavailable [phone] Manish Catherine PA-C Unavailable [phone] Heidy Harrell DO Unavailable +[phone] Heidy Harrell DO Unavailable [phone] Essence Wise [facility] Unavailable +[phone] Heidy Harrell DO Unavailable [phone] Essence Wise [facility] Unavailable [phone] Essence Wise [facility] Unavailable [phone] Pablito Paulson MD Unavailable Phuc Cruz MD Unavailable Unavailab Phuc Barraza MD Unavailable Unavailab Claudia Rodrigez APRN, CNP Unavailable [phone] Encounter Details Date Type Department Care Team (Late st Contact Info) Description 12/29/2020 MyC Medical Advice [facility] Virtual [facility] [address] [place] [address], [address] [place] [address] Latonia Madden Social History Tobacco Use Types Packs/Day Years Used Date Smoking Tobacco: Never Smokeless Tobacco: Never Alcohol Use Standard Drinks/Week Comments Yes 0 (1 standard drink = 0.6 oz pur e alcohol) occas PHQ-2 Answer Date Recorded PHQ-2 Score 2 08/28/2019 Sex and Gender Information Value Date Recorded Sex Assigned at Male 04/09/2020 8:36 AM CDT Legal Sex Male 3:26 AM CURER ACID DRUM Gender Identity Male 04/09/2020 8:36 AM CDT Sexual Orientation Straight 04/09/2020 8: 36 AM CDT documented as of this encounter Plan of Treatment Upcoming Encounters Date Type Department Care Team (Late st Contact Info) Description 07/10/2025 12:00 PM CURER ACID DRUM Office Visit [facility] [address] [address] Lary Schmitz H, CADASTRAL ENGINEER [facility] [id number] [place] [address] documented as of this encounter Visit Diagnoses Not on filedocumented in this encounter Additional Health Concerns Assessment Noted Time PHQ-9 Depression Total Score: 12 020 6:56 AM CURER ACID DRUM documented as of this encounter Care Teams Carpet Weaver Relationship Specialty Start Date End Date Andrew Erickson MD PCP - General Family Practice 11/12/17 Sandoval Boggs MD [address] [place] [address] Clinical Neurophysiology 11/03/18 Jordan Erickson MD [address] [address] 11/03/18 Sandoval Boggs MD [address] [place] [address] Assigned Neuroscience Provider 06/13/20 09/19/21 Erich Gillette MD [address] [place] [address] Assigned Sleep Provider 06/13/20 06/12/24 Essence Wise [facility] [address] [place] [address] Pharmacist Pharmacist 06/01/21 Manish Catherine PA-C [address] [place] [address] Assigned Neuroscience Provider 09/20/21 11/14/21 Heidy Harrell DO [address] [place] [address] Neurology 09/28/21 Heidy Harrell DO [address] [place] [address] Assigned Neuroscience Provider 04/17/22 Essence Wise [facility] [address] [place] [address] Assigned MTM Pharmacist 01/16/22 05/07/22 Heidy Harrell DO [address] [place] [address] Assigned Neuroscience Provider 11/15/21 04/16/22 Essence Wise [facility] [address] [place] [address] Assigned MTM Pharmacist 05/19/22 07/01/23 Essence Wise [facility] [address] [place] [address] Assigned MTM Pharmacist 10/14/23 Pablito Paulson MD [address] [place] [address] Assigned Pulmonology Provider 03/13/24 Phuc Cruz MD [address] [place] [address] Cardiovascular Disease 09/20/24 01/02/25 Phuc Cruz MD Assigned Heart and Vascular Provider 10/14/24 01/10/25 Claudia Loya APRN TONGUE PRESSER [address] [place] [address] Assigned Heart and Vascular Provider 01/11/25 documented as of this encounter
--- OUTSIDE RECORDS SUMMARY | 2025-02-08 09:15 | XMS_ITS | Encounter Summary ---
Author Organization [facility] Address [address] [place] [address] Care Team Providers Care Manager Sales Name Role Phone Andrew Erickson MD Primary Care Provider [phone] Sandoval Boggs MD Unavailable [phone] Jordan Erickson MD Unavailable [phone] Sandoval Boggs MD Unavailable [phone] Erich Gillette MD Unavailable [phone] Essence Wise [facility] Unavailable [phone] Manish Catherine PA-C Unavailable [phone] Heidy Harrell DO Unavailable [phone] Heidy Harrell DO Unavailable [phone] Essence Wise [facility] Unavailable [phone] Heidy Harrell DO Unavailable [phone] Essence Wise [facility] Unavailable [phone] Essence Wise [facility] Unavailable [phone] Pablito Paulson MD Unavailable Puhc Cruz MD Unavailable Unavailab Phuc Barraza MD Unavailable Unavailab Claudia Rodrigez APRN, CNP Unavailable [phone] Encounter Details Date Type Department Care Team (Late st Contact Info) Description 01/26/2021 MyC Medical Advice [facility] [address] [address] Mark Soliz, [place] Social History Tobacco Use Types Packs/Day Years Used Date Smoking Tobacco: Never Smokeless Tobacco: Never Alcohol Use Standard Drinks/Week Comments Yes 0 (1 standard drink = 0.6 oz pur e alcohol) occas PHQ-2 Answer Date Recorded PHQ-2 Score 2 08/28/2019 Sex and Gender Information Value Date Recorded Sex Assigned at Male 04/09/2020 8:36 AM CDT Legal Sex Male 3:26 AM SCROLL SAW OPERATOR Gender Identity Male 04/09/2020 8:36 AM CDT Sexual Orientation Straight 04/09/2020 8: 36 AM CDT documented as of this encounter Plan of Treatment Upcoming Encounters Date Type Department Care Team (Late st Contact Info) Description 07/10/2025 12:00 PM SCROLL SAW OPERATOR Office Visit [facility] [address] [address] Lary Schmitz H, [employer]ODU[employer] II ASSEMBLER SUPERANNUATION CLERK [address] [facility] [id number] [place] [address] documented as of this encounter Visit Diagnoses Not on filedocumented in this encounter Additional Health Concerns Assessment Noted Time PHQ-9 Depression Total Score: 12 020 6:56 AM SCROLL SAW OPERATOR documented as of this encounter Care Teams Manager Sales Relationship Specialty Start Date End Date Andrew Erickson MD PCP - General Family Practice 11/12/17 Sandoval Boggs MD [address] [place] [address] Clinical Neurophysiology 11/03/18 Jordan Erickson MD [address] [address] 11/03/18 Sandoval Boggs MD [address] [place] [address] Assigned Neuroscience Provider 06/13/20 09/19/21 Erich Gillette MD [address] [place] [address] Assigned Sleep Provider 06/13/20 06/12/24 Essence Wise [facility] [address] [place] [address] Pharmacist Pharmacist 06/01/21 Manish Catherine PA-C [address] [place] [address] Assigned Neuroscience Provider 09/20/21 11/14/21 Heidy Harrell DO [address] [place] [address] Neurology 09/28/21 Heidy Harrell DO [address] [place] [address] Assigned Neuroscience Provider 04/17/22 Essence Wise [facility] [address] [place] [address] Assigned MTM Pharmacist 01/16/22 05/07/22 Heidy Harrell DO [address] [place] [address] Assigned Neuroscience Provider 11/15/21 04/16/22 Essence Wise [facility] [address] [place] [address] Assigned MTM Pharmacist 05/19/22 07/01/23 Essence Wise [facility] [address] [place] [address] Assigned MTM Pharmacist 10/14/23 Pablito Paulson MD [address] [place] [address] Assigned Pulmonology Provider 03/13/24 Phuc Cruz MD [address] [place] [address] Cardiovascular Disease 09/20/24 01/02/25 Phuc Cruz MD Assigned Heart and Vascular Provider 10/14/24 01/10/25 Claudia Loya APRN SUPERANNUATION CLERK [address] [place] [address] Assigned Heart and Vascular Provider 01/11/25 documented as of this encounter
--- OUTSIDE RECORDS SUMMARY | 2025-02-08 09:15 | XMS_ITS | Encounter Summary ---
Author Organization [place] Address [address] [facility] [place] [address] Care Team Providers Care Fish Salter Name Role Phone Andrew Erickson MD Primary Care Provider [phone] Sandoval Boggs MD Unavailable [phone] Jordan Erickson MD Unavailable [phone] Essence Wise [facility] Unavailable [phone] Heidy Harrell DO Unavailable [phone] Heidy Harrell DO Unavailable [phone] Essence Wise [facility] Unavailable [phone] Pablito Paulson MD Unavailable Phuc Cruz MD Unavailable Unavailab Phuc Barraza MD Unavailable Unavailab Claudia Rodrigez APRN VENTILATION MECHANIC Unavailable [phone] Encounter Details Date Type Department Care Team (Late st Contact Info) Description 07/26/2024 External Order Results [facility] [address] [place] [address] Outside, Provider Social History Tobacco Use Types [...] AM CDT Legal Sex Male 3:26 AM AREA SAFETY MANAGER Gender Identity Male 04/09/2020 8:36 AM CDT Sexual Orientation Straight 04/09/2020 8: 36 AM CDT documented as of this encounter Plan of Treatment Upcoming Encounters Date Type Department Care Team (Late st Contact Info) Description 07/10/2025 12:00 PM AREA SAFETY MANAGER Office Visit [facility] [address] [address] Lary Schmitz, SCRUFF WORKER VENTILATION MECHANIC [address] [facility] [id number] [place] [address] documented as of this encounter Procedures Procedure Name Priority Date/Time Associated Diagnosis Comments EXTERNAL LAB RESULTS Routine 07/26/2024 10:18 AM AREA SAFETY MANAGER BASIC METABOLIC PANEL Routine 07/26/2024 10:18 AM AREA SAFETY MANAGER LIPID PROFILE Routine 06/26/2024 10:29 AM AREA SAFETY MANAGER HEPATIC FUNCTION PANEL Routine 06/26/2024 10:29 AM AREA SAFETY MANAGER BASIC METABOLIC PANEL Routine 06/26/2024 10:29 AM AREA SAFETY MANAGER TESTOSTERONE FREE AND TOTAL Routine 06/26/2024 10:28 AM AREA SAFETY MANAGER EXTERNAL LAB RESULTS Routine 06/26/2024 10:28 AM AREA SAFETY MANAGER LUTEINIZING HORMONE Routine 06/26/2024 1 0:28 AM AREA SAFETY MANAGER HCG QUANTITATIVE Routine 06/26/2024 10:28 AM AREA SAFETY MANAGER CBC WITH PLATELETS Routine 06/26/2024 10 :28 AM AREA SAFETY MANAGER documented in this encounter Results * (ABNORMAL) Basic metabolic panel (07/26/2024 10:18 AM AREA SAFETY MANAGER) Sodium (External) 135 135 - 149 mmol/l [...] BLOOD SPECIMEN / Unknown 07/26/2024 10:18 AM AREA SAFETY MANAGER Narrative ELVIRAE PFT - 09/26/2024 9:59 AM AREA SAFETY MANAGER Verified by Chloe Fan on 09/26/2024. us Provider Outside LAB - BLOOD ORDERABLES Edited R esult - Final NIKOLE PFDouglas NON-INTERFACED (ONBASE SCANS) * External Lab Results (07/26/2024 10:18 AM AREA SAFETY MANAGER) Scan Lab Results (External) See Scanned Report NON-INTERFACE D (ONBASE SCANS) Comment:Monoclonal proteins SPEP/JAQUAN 07/26/2024 10:1 8 AM AREA SAFETY MANAGER Narrative BREEZE PFT - 09/26/2024 9:59 AM AREA SAFETY MANAGER Verified by Chloe Fan on 09/26/2024. us Provider Outside LABORATORY Edited Result - Final Performing Organization Address [facility]/State/ZIP Co de Phone Number NIKOLE PFT NON-INTERFACED (ONBASE SCANS) * (ABNORMAL) Basic metabolic panel (06/26/2024 10:29 AM AREA SAFETY MANAGER) Sodium (External) 133(L) 135 - 149 mmol/L [...] BLOOD SPECIMEN / Unknown 06/26/2024 10:29 AM AREA SAFETY MANAGER Narrative NIKOLE CANOT - 09/26/2024 10:49 AM AREA SAFETY MANAGER Verified by Nieves Arredondo on 09/26/2024. us Provider Outside LAB - BLOOD ORDERABLES Edited R esult - Final NIKOLE PFT NON-INTERFACED (ONBASE SCANS) * Hepatic function panel (06/26/2024 10:29 AM AREA SAFETY MANAGER) Protein Total (External) 7.3 6.0 - 8.3 [...] BLOOD SPECIMEN / Unknown 06/26/2024 10:29 AM AREA SAFETY MANAGER Narrative BREEZE PFT - 09/26/2024 10:49 AM AREA SAFETY MANAGER Verified by Nieves Arredondo on 09/26/2024. Provider Outside LAB - BLOOD ORDERABLES Edited R [employer] NIKOLE PFT NON-INTERFACED (ONBASE SCANS) * Lipid Profile (06/26/2024 10:29 AM AREA SAFETY MANAGER) Pathologist [facility] Triglycerides (External) 80 40 - 149 mg/dL NON-INTERFACE D (ONBASE SCANS) Blood BLOOD SPECIMEN / Unknown 06/26/2024 10:29 AM AREA SAFETY MANAGER Narrative BREEZE PFT - 09/26/2024 10:49 AM AREA SAFETY MANAGER Verified by Nieves Arredondo on 09/26/2024. Provider Outside LAB - BLOOD ORDERABLES Edited [facility] NIKOLE PFT NON-INTERFACED (ONBASE SCANS) * (ABNORMAL) CBC with platelets (06/26/2024 10:28 AM AREA SAFETY MANAGER) WBC Count (External) 5.77 4.50 - 11.00 [...] BLOOD SPECIMEN / Unknown 06/26/2024 10:28 AM AREA SAFETY MANAGER Narrative BREEZE PFT - 09/26/2024 10:49 AM AREA SAFETY MANAGER Verified by Nieves Arredondo on 09/26/2024. us Provider Outside LAB - BLOOD ORDERABLES Edited R esult - Final BREEZE PFT NON-INTERFACED (ONBASE SCANS) * External Lab Results (06/26/2024 10:28 AM AREA SAFETY MANAGER) Scan Lab Results (External) See Scanned Report NON-INTERFACE D (ONBASE SCANS) Comment:sex hormone bind vasyl bulin 06/26/2024 10:2 8 AM AREA SAFETY MANAGER Narrative BREEZE PFT - 09/26/2024 10:49 AM AREA SAFETY MANAGER Verified by Nieves Arredondo on 09/26/2024. us Provider Outside LABORATORY Edited Result - Final BREEZE PFT NON-INTERFACED (ONBASE SCANS) * Testosterone Free and Total (06/26/2024 10:28 AM AREA SAFETY MANAGER) Testosterone Free (External) 1.7 1.6 - 2.9 % NON-INTERFACE D (ONBASE SCANS) Blood 06/26/2024 10:2 8 AM AREA SAFETY MANAGER Narrative BREEZE PFT - 09/26/2024 10:49 AM AREA SAFETY MANAGER Verified by Nieves Arredondo on 09/26/2024. us Provider Outside LAB - BLOOD ORDERABLES Edited R esult - Final BREEZE PFT NON-INTERFACED (ONBASE SCANS) * (ABNORMAL) Luteinizing Hormone (06/26/2024 10:28 AM AREA SAFETY MANAGER) Lutropin (External) 37.4(H) 1.7 - 8.6 IU/L NON-INTERFACED (ONBASE SCANS) Blood BLOOD SPECIMEN / Unknown 06/26/2024 10:28 AM AREA SAFETY MANAGER Narrative BREEZE PFT - 09/26/2024 10:49 AM AREA SAFETY MANAGER Verified by Nieves Arredondo on 09/26/2024. Provider Outside LAB - BLOOD ORDERABLES [facility] BREEZE PFT NON-INTERFACED (ONBASE SCANS) * hCG Quantitative (06/26/2024 10:28 AM AREA SAFETY MANAGER) hCG Quantitative 1 0 - 3 IU/L NO N-INTERFACE D (ONBASE SCANS) Blood BLOOD SPECIMEN / Unknown 06/26/2024 10:28 AM AREA SAFETY MANAGER Narrative BREEZE PFT - 09/26/2024 10:49 AM AREA SAFETY MANAGER Verified by Nieves Arredondo on 09/26/2024. Provider Outside LAB - BLOOD ORDERABLES Edited [facility] BREEZE PFT NON-INTERFACED (ONBASE SCANS) documented in this encounter Visit Diagnoses Not on filedocumented in this encounter Additional Health Concerns Assessment Noted Time PHQ-9 Depression Total Score: 14 021 7:02 AM CDT documented as of this encounter Care Teams Fish Salter Relationship Specialty Start Date End Date Andrew Erickson MD PCP - General Family Practice 11/12/17 Sandoval Boggs MD [address] [place] [address] Clinical Neurophysiology 11/03/18 Jordan Erickson MD [facility] [address] [place] [address] 11/03/18 Essence Wise, [facility] [address] [place] [address] Pharmacist Pharmacist 06/01/21 eHidy Harrell DO [address] [place] [address] Neurology 09/28/21 Heidy Harrell DO [address] [place] [address] Assigned Neuroscience Provider 04/17/22 Essence Wise, [facility] [address] [place] [address] Assigned MTM Pharmacist 10/14/23 Pablito Paulson MD [address] [place] [address] Assigned Pulmonology Provider 03/13/24 Phuc Cruz MD [address] [place] [address] Cardiovascular Disease 09/20/24 01/02/25 Phuc Cruz MD Assigned Heart and Vascular Provider 10/14/24 01/10/25 Claudia Loya APRN VENTILATION MECHANIC [address] [place] [address] Assigned Heart and Vascular Provider 01/11/25 documented as of this encounter
--- OUTSIDE RECORDS SUMMARY | 2025-02-08 09:15 | XMS_ITS | Encounter Summary ---
Author Organization [place] Address [address] [facility] [place] [address] Care Team Providers Care Die Cast Supervisor Name Role Phone Andrew Erickson MD Primary Care Provider Sandoval Boggs MD Unavailable [phone] Jordan Erickson MD Unavailable [phone] Essence Wise [facility] Unavailable [phone] Heidy Harrell DO Unavailable [phone] Heidy Harrell DO Unavailable [phone] Essence Wise [facility] Unavailable [phone] Pablito Paulson MD Unavailable Phuc Cruz MD Unavailable Unavailab Phuc Barraza MD Unavailable Unavailab Claudia Rodrigez APRN CONCRETE PLANT LABORER Unavailable [phone] Encounter Details Date Type Department Care Team (Late st Contact Info) Description 07/20/2024 External Order Results [facility] [address] [place] [address] Outside, Provider Social History Tobacco Use Types [...] AM CDT Legal Sex Male 3:26 AM OFFSET LITHOGRAPHIC PRESS SETTER Gender Identity Male 04/09/2020 8:36 AM CDT Sexual Orientation Straight 04/09/2020 8: 36 AM CDT documented as of this encounter Plan of Treatment Upcoming Encounters Date Type Department Care Team (Late st Contact Info) Description 07/10/2025 12:00 PM OFFSET LITHOGRAPHIC PRESS SETTER Office Visit [facility] Neurology Clinic [address] [address] Lary Schmitz, [facility] [address] [facility] [id number] [address] documented as of this encounter Procedures Procedure Name Priority Date/Time Associated Diagnosis Comments EXTERNAL LAB RESULTS Routine 07/20/2024 11:16 PM OFFSET LITHOGRAPHIC PRESS SETTER HEPATIC FUNCTION PANEL Routine 07/20/2024 11:16 PM OFFSET LITHOGRAPHIC PRESS SETTER CRP INFLAMMATION Routine 07/20/2024 11:1 6 PM OFFSET LITHOGRAPHIC PRESS SETTER CREATININE Routine 07/20/2024 11:16 PM OFFSET LITHOGRAPHIC PRESS SETTER CK TOTAL Routine 07/20/2024 11:16 PM OFFSET LITHOGRAPHIC PRESS SETTER CALCIUM Routine 07/20/2024 11:16 PM OFFSET LITHOGRAPHIC PRESS SETTER GLUCOSE Routine 07/20/2024 11:16 PM OFFSET LITHOGRAPHIC PRESS SETTER EXTERNAL LAB RESULTS Routine 07/20/2024 2:00 AM OFFSET LITHOGRAPHIC PRESS SETTER documented in this encounter Results * (ABNORMAL) Creatinine (07/20/2024 11:16 PM OFFSET LITHOGRAPHIC PRESS SETTER) Creatinine (External) 2.1(H) 0.5 - 1.5 mg/dL NON-INTERFACED (ONBASE SCANS) Blood BLOOD SPECIMEN / Unknown 07/20/2024 11:16 PM OFFSET LITHOGRAPHIC PRESS SETTER Narrative BREEZE PFT - 09/26/2024 10:56 AM OFFSET LITHOGRAPHIC PRESS SETTER Verified by Harris Mark on 09/26/2024. Provider Outside LAB - BLOOD ORDERABLES Edited R [facility] Performing Organization Address City/[facility]/ZIP Co de Phone Number BREEZE PFT NON-INTERFACED (ONBASE SCANS) * Calcium (07/20/2024 11:16 PM OFFSET LITHOGRAPHIC PRESS SETTER) Calcium (External) 9.2 0.4 - 10.6 mg/dl NON-INTERFACED (ONBASE SCANS) Blood BLOOD SPECIMEN / Unknown 07/20/2024 11:16 PM OFFSET LITHOGRAPHIC PRESS SETTER Narrative BREEZE PFT - 09/26/2024 10:56 AM OFFSET LITHOGRAPHIC PRESS SETTER Verified by Harris Mark on 09/26/2024. Provider Outside LAB - BLOOD ORDERABLES Edited [email or web address] Performing Organization Address [facility]/ZIP Co de Phone Number BREEZE PFT NON-INTERFACED (ONBASE SCANS) * Glucose (07/20/2024 11:16 PM OFFSET LITHOGRAPHIC PRESS SETTER) Glucose (External) 96 60 - 115 mg/dL NON-INTERFACED (ONBASE SCANS) Blood BLOOD SPECIMEN / Unknown 07/20/2024 11:16 PM OFFSET LITHOGRAPHIC PRESS SETTER Narrative BREEZE PFT - 09/26/2024 10:56 AM OFFSET LITHOGRAPHIC PRESS SETTER Verified by Harris Mark on 09/26/2024. Provider Outside LAB - BLOOD ORDERABLES Edited R [email or web address] BREEZE PFT NON-INTERFACED (ONBASE SCANS) * (ABNORMAL) Hepatic function panel (07/20/2024 11:16 PM OFFSET LITHOGRAPHIC PRESS SETTER) Protein Total (External) 7.1 6.0 - 8.3 [...] BLOOD SPECIMEN / Unknown 07/20/2024 11:16 PM OFFSET LITHOGRAPHIC PRESS SETTER Narrative BREEZE PFT - 09/26/2024 10:56 AM OFFSET LITHOGRAPHIC PRESS SETTER Verified by Harris Mark on 09/26/2024. Provider Outside LAB - BLOOD ORDERABLES Edited [employer] Performing Organization Address City/[facility]/ZIP Co de Phone Number BREEZE PFT NON-INTERFACED (ONBASE SCANS) * CK total (07/20/2024 11:16 PM OFFSET LITHOGRAPHIC PRESS SETTER) CK (External) 153 54 - 186 U/L NON-INTERFACED (ONBASE SCANS) Blood BLOOD SPECIMEN / Unknown 07/20/2024 11:16 PM OFFSET LITHOGRAPHIC PRESS SETTER Narrative BREEZE PFT - 09/26/2024 10:56 AM OFFSET LITHOGRAPHIC PRESS SETTER Verified by Harris Makr on 09/26/2024. Provider Outside LAB - BLOOD ORDERABLES Edited [employer] BREEZE PFT NON-INTERFACED (ONBASE SCANS) * (ABNORMAL) CRP inflammation (07/20/2024 11:16 PM OFFSET LITHOGRAPHIC PRESS SETTER) CRP Inflammation (External) 3.2(H) 0.5 - 1.0 mg/dL NON-INTERFACE D (ONBASE SCANS) Blood BLOOD SPECIMEN / Unknown 07/20/2024 11:16 PM OFFSET LITHOGRAPHIC PRESS SETTER Narrative BREEZE PFT - 09/26/2024 10:56 AM OFFSET LITHOGRAPHIC PRESS SETTER Verified by Harris Mark on 09/26/2024. us Provider Outside LAB - BLOOD ORDERABLES Edited R esult - Final Performing Organization Address [facility]/ZIP Co de Phone Number BREEZE PFT NON-INTERFACED (ONBASE SCANS) * (ABNORMAL) External Lab Results (07/20/2024 11:16 PM OFFSET LITHOGRAPHIC PRESS SETTER) Scan Lab Results (External) See scanned multiple lab report(A) NON-INTERFACE D (ONBASE SCANS) Comment: Salicylate Acetamin Ethanol 07/20/2024 11:1 6 PM OFFSET LITHOGRAPHIC PRESS SETTER Narrative BREEZE PFT - 09/26/2024 10:56 AM OFFSET LITHOGRAPHIC PRESS SETTER Verified by Harris Mark on 09/26/2024. us Provider Outside LABORATORY Edited Result - Final Performing Organization Address [facility] Co de Phone Number BREEZE PFT NON-INTERFACED (ONBASE SCANS) * External Lab Results (07/20/2024 2:00 AM OFFSET LITHOGRAPHIC PRESS SETTER) Scan Lab Results (External) See Scanned Report NON-INTERFACE D (ONBASE SCANS) Comment:Urine Drug Screen 07/20/2024 2:00 AM OFFSET LITHOGRAPHIC PRESS SETTER Narrative BREEZE PFT - 09/26/2024 10:56 AM OFFSET LITHOGRAPHIC PRESS SETTER Verified by Harris Mark on 09/26/2024. us Provider Outside LABORATORY Edited Result - Final BREEZE PFT NON-INTERFACED (ONBASE SCANS) documented in this encounter Visit Diagnoses Not on filedocumented in this encounter Additional Health Concerns Assessment Noted Time PHQ-9 Depression Total Score: 14 021 7:02 AM CDT documented as of this encounter Care Teams Die Cast Supervisor Relationship Specialty Start Date End Date Andrew Erickson MD PCP - General Family Practice 11/12/17 Sandoval Boggs MD [address] [place] [address] Clinical Neurophysiology 11/03/18 Jordan Erickson MD [address] [address] 11/03/18 Essence Wise, [facility] [address] [place] [address] Pharmacist Pharmacist 06/01/21 Heidy Harrell DO [address] [place] [address] Neurology 09/28/21 Heidy Harrell DO [address] [place] [address] 366[address] Assigned Neuroscience Provider 04/17/22 Essence Wise [facility] [address] [place] [address] 08[address] Assigned MTM Pharmacist 10/14/23 Pablito Paulson MD [address] [place] [address] Assigned Pulmonology Provider 03/13/24 Phuc Cruz MD [address] [place] [address]645 Cardiovascular Disease 09/20/24 01/02/25 Phuc Cruz MD Assigned Heart and Vascular Provider 10/14/24 01/10/25 Claudia Loya APRN CONCRETE PLANT LABORER [address] [id number] Assigned Heart and Vascular Provider 01/11/25 documented as of this encounter
--- OUTSIDE RECORDS SUMMARY | 2025-02-08 09:15 | XMS_ITS | CCD ---
Author Name Interface, [id number] Address [address] [facility] [address] [place] [address] [facility] Oncology Address [facility] [address] [place] [address] Care Team Providers Care Sales Agent Insurance Name Role Phone Shruti Page Unavailable Unavailable Oscar Nguyen Unavailable Unavailable Isaac Ray Unavailable Unavailab le Allergies and Adverse Reactions Care Plan Reason for Visit Encounters Immunizations Diagnostic Results Medications Problems Procedures Social History Vital Signs
--- OUTSIDE RECORDS SUMMARY | 2025-02-08 09:15 | XMS_ITS | Encounter Summary ---
Author Organization [place] Address [address] [facility] [place] [address] Care Team Providers Care Bowling Alley Refinisher Name Role Phone Andrew Erickson MD Primary Care Provider [phone] Sandoval Boggs MD Unavailable [phone] Jordan Erickson MD Unavailable [phone] Erich Gillette MD Unavailable [phone] Essence Wise [facility] Unavailable [phone] Heidy Harrell DO Unavailable [phone] Heidy Harrell DO Unavailable [phone] Essence Wise [facility] Unavailable [phone] Pablito Paulson MD Unavailable Phuc Cruz MD Unavailable Unavailab Phuc Barraza MD Unavailable Unavailab Claudia Rodrigez APRN FUELS SALES REPRESENTATIVE Unavailable [phone] Encounter Details Date Type Department Care Team (Late st Contact Info) Description 02/22/2024 [facility] Medical Advice [facility] [address] [address] Elena Menchaca Social History Tobacco [...] AM CDT Legal Sex Male 3:26 AM DIRECTOR OF LOSS PREVENTION Gender Identity Male 04/09/2020 8:36 AM CDT Sexual Orientation Straight 04/09/2020 8: 36 AM CDT documented as of this encounter Plan of Treatment Upcoming Encounters Date Type Department Care Team (Late st Contact Info) Description 07/10/2025 12:00 PM DIRECTOR OF LOSS PREVENTION Office Visit [facility] Neurology [address] [address] Lary Schmitz, [facility] [address] [facility] [id number] [address] documented as of this encounter Visit Diagnoses Not on filedocumented in this encounter Additional Health Concerns Assessment Noted Time PHQ-9 Depression Total Score: 14 021 7:02 AM CDT documented as of this encounter Care Teams Bowling Alley Refinisher Relationship Specialty Start Date End Date Andrew Erickson MD PCP - General Family Practice 11/12/17 Sandoval Boggs MD [address] [place] [address] Clinical Neurophysiology 11/03/18 Jordan Erickson MD [facility] [address] [place] [address] 11/03/18 Erich Gillette MD [address] [address] Assigned Sleep Provider 06/13/20 06/12/24 Essence Wise [facility] [address] [place] [address] Pharmacist Pharmacist 06/01/21 Heidy Harrell DO [address] [place] [address] Neurology 09/28/21 Heidy Harrell DO [address] [place] [address] Assigned Neuroscience Provider 04/17/22 Essence Wise [facility] [address] [place] [address] Assigned MTM Pharmacist 10/14/23 Pablito Paulson MD [address] [place] [address] Assigned Pulmonology Provider 03/13/24 Phuc Cruz MD [address] [place] [address] Cardiovascular Disease 09/20/24 01/02/25 Phuc Cruz MD Assigned Heart and Vascular Provider 10/14/24 01/10/25 Claudia Loya APRN FUELS SALES REPRESENTATIVE [address] [address] Assigned Heart and Vascular Provider 01/11/25 documented as of this encounter
--- OUTSIDE RECORDS SUMMARY | 2025-02-08 09:15 | XMS_ITS | Encounter Summary ---
Author Organization [place] Address [address] [place] [address] Care Team Providers Care Key Sander Name Role Phone Andrew Erickson MD Primary Care Provider [phone] Sandoval Boggs MD Unavailable [phone] Jordan Erickson MD Unavailable [phone] Sandoval Boggs MD Unavailable [phone] Erich Gillette MD Unavailable [phone] Essence Wise [facility] Unavailable [phone] Manish Catherine PA-C Unavailable [phone] Heidy Harrell DO Unavailable [phone] Heidy Harrell DO Unavailable [phone] Essence Wise [facility] Unavailable [phone] Heidy Harrell DO Unavailable [phone] Essence Wise [facility] Unavailable [phone] Essence Wise [facility] Unavailable [phone] Pablito Paulson MD Unavailable Phuc Cruz MD Unavailable Unavailab Phuc Barraza MD Unavailable Unavailab Claudia Rodrigez APRN, CNP Unavailable [phone] Encounter Details Date Type Department Care Team (Late st Contact Info) Description 05/01/2021 [facility] Medical Advice [facility] [address] [address] Kelsi Quintero MA Social History Tobacco Use [...] Legal Sex Male 3:26 AM DIRECTOR OF EVENT MARKETING Gender Identity Male 04/09/2020 8:36 AM CDT [...] Info) Description 07/10/2025 12:00 PM DIRECTOR OF EVENT MARKETING Office Visit [facility] [address] [address] Lary Schmitz, [place] [address] [id number] [address] documented as of this encounter Visit Diagnoses Not on filedocumented in this encounter Additional Health Concerns Assessment Noted Time PHQ-9 Depression Total Score: 12 020 6:56 AM DIRECTOR OF EVENT MARKETING documented as of this encounter Care Teams Key Sander Relationship Specialty Start Date End Date Andrew Erickson MD PCP - General Family Practice 11/12/17 Sandoval Boggs MD [address] [place] [address] Clinical Neurophysiology 11/03/18 Jordan Erickson MD [facility] [address] [place] [address] 11/03/18 Sandoval Boggs MD [address] [place] [address] Assigned Neuroscience Provider 06/13/20 09/19/21 Erich Gillette MD [address] [facility] [address] [address] Assigned Sleep Provider 06/13/20 06/12/24 Essence Wise [facility] [address] [place] [address] Pharmacist Pharmacist 06/01/21 Manish Catherine PA-C [address] [facility] [address] [address] Assigned Neuroscience Provider 09/20/21 11/14/21 Heidy Harrell DO [address] [place] [address] Neurology 09/28/21 Heidy Harrell DO [address] [place] [address] Assigned Neuroscience Provider 04/17/22 Essence Wise [facility] [address] [place] [address] Assigned MTM Pharmacist 01/16/22 05/07/22 Heidy Harrell DO [address] [place] [address] Assigned Neuroscience Provider 11/15/21 04/16/22 Essence Wise [facility] [address] [place] [address] Assigned MTM Pharmacist 05/19/22 07/01/23 Essence Wise [facility] [address] [place] [address] Assigned MTM Pharmacist 10/14/23 Pablito Paulson MD [address] [place] [address] Assigned Pulmonology Provider 03/13/24 Phuc Cruz MD [address] [place] [address] Cardiovascular Disease 09/20/24 01/02/25 Phuc Cruz MD Assigned Heart and Vascular Provider 10/14/24 01/10/25 Claudia Loya APRN MANUFACTURING MANAGER [address] [place] [address] Assigned Heart and Vascular Provider 01/11/25 documented as of this encounter
--- OUTSIDE RECORDS SUMMARY | 2025-02-08 09:16 | XMS_ITS | Encounter Summary ---
Author Organization [place] Address [address] [place] [address] Care Team Providers Care Healthcare Financial Analyst Name Role Phone Andrew Erickson MD Primary Care Provider [phone] Sandoval Boggs MD Unavailable [phone] Jordan Erickson MD Unavailable [phone] Erich Gillette MD Unavailable [phone] Essence Wise [facility] Unavailable [phone] Heidy Harrell DO Unavailable [phone] Heidy Harrell DO Unavailable [phone] Essence Wise [facility] Unavailable Essence Wise [facility] Unavailable [phone] Pablito Paulson MD Unavailable Phuc Cruz MD Unavailable Unavailab Phuc Barraza MD Unavailable Unavailab Claudia Rodrigez APRN INTELLIGENCE DIRECTOR Unavailable [phone] Encounter Details Date Type Department Care Team (Late st Contact Info) Description 12/29/2022 [facility] [address] [facility] [address] [place] [address] Essence Wise, [facility] [address] [place] [address] Social History Tobacco Use Types [...] AM CDT Legal Sex Male 3:26 AM FOREIGN LEGAL CONSULTANT Gender Identity Male 04/09/2020 8:36 AM [...] st Contact Info) Description 07/10/2025 12:00 PM FOREIGN LEGAL CONSULTANT Office Visit [facility] Neurology Clinic [address] [address] Lray Schmitz, ANIMAL CARE GIVER INTELLIGENCE DIRECTOR [address] [place], [place] [address], [place] [address] documented as of this encounter Visit Diagnoses Not on filedocumented in this encounter Additional Health Concerns Assessment Noted Time PHQ-9 Depression Total Score: 14 021 7:02 AM CDT documented as of this encounter Care Teams Healthcare Financial Analyst Relationship Specialty Start Date End Date Andrew Erickson MD PCP - General Family Practice 11/12/17 Sandoval Boggs MD [address] [place] [address] Clinical Neurophysiology 11/03/18 Jordan Erickson MD [address] [place] [address] 11/03/18 Erich Gillette MD [address] [address] Assigned Sleep Provider 06/13/20 06/12/24 Essence Wise [facility] [address] [place] [address] Pharmacist Pharmacist 06/01/21 Heidy Harrell DO [address] [place] [address] Neurology 09/28/21 Heidy Harrell DO [address] [place] [address] Assigned Neuroscience Provider 04/17/22 Essence Wise [facility] [address] [place] [address] Assigned MTM Pharmacist 05/19/22 07/01/23 Essence Wise [facility] [address] [place] [address] Assigned MTM Pharmacist 10/14/23 Pablito Paulson MD [address] [place] [address] Assigned Pulmonology Provider 03/13/24 Phuc Cruz MD [address] [place] [address] Cardiovascular Disease 09/20/24 01/02/25 Phuc Cruz MD Assigned Heart and Vascular Provider 10/14/24 01/10/25 Claudia Loya APRN [facility] [address] [place] [address] Assigned Heart and Vascular Provider 01/11/25 documented as of this encounter
--- OUTSIDE RECORDS SUMMARY | 2025-02-08 09:16 | XMS_ITS | Encounter Summary ---
Author Organization [facility] Address [address] [place] [address] Care Team Providers Care Software Sales Consultant Name Role Phone Andrew Ericskon MD Primary Care Provider [phone] Sandoval Boggs MD Unavailable [phone] Jordan Erickson MD Unavailable [phone] Cheryl Mullen HOT BILLET SHEAR OPERATOR AUTOMATIC CLIPPER Unavailable + Libertad Bonilla HOT BILLET SHEAR OPERATOR AUTOMATIC CLIPPER Unavailable +[phone] Sandoval Boggs MD Unavailable [phone] Erich Gillette MD Unavailable +[phone] Libertad Bonilla APRN AUTOMATIC CLIPPER Unavailable +[phone] Cheryl Mullen HOT BILLET SHEAR OPERATOR AUTOMATIC CLIPPER Unavailable + Cheryl Mullen HOT BILLET SHEAR OPERATOR AUTOMATIC CLIPPER Unavailable + Libertad Bonilla HOT BILLET SHEAR OPERATOR AUTOMATIC CLIPPER Unavailable +[phone] Essence Wise [facility] Unavailable + [phone] Manish Catherine PA-C Unavailable + [phone] Heidy Harrell DO Unavailable [phone] Heidy Harrell DO Unavailable [phone] Essence Wise [facility] Unavailable + [phone] Heidy Harrell DO Unavailable [phone] Essence Wise [facility] Unavailable [phone] Essence Wise [facility] Unavailable [phone] Pablito Paulson MD Unavailable Phuc Cruz MD Unavailable Unavailab Phuc Barraza MD Unavailable Unavailab Claudia Rodrigez APRN AUTOMATIC CLIPPER Unavailable [phone] Encounter Details Date Type Department Care Team (Late st Contact Info) Description 04/21/2020 Orders Only [facility] [address] [place] [address] Chester Venegas MD [facility] [address] [place] [address] Pre-operative laboratory examination (Primary Dx) Social History [...] AM CDT Legal Sex Male 3:26 AM ASSISTANT BOYS TRACK COACH Gender Identity Male 04/09/2020 8:36 AM CDT [...] st Contact Info) Description 07/10/2025 12:00 PM ASSISTANT BOYS TRACK COACH Office Visit [facility] [address] [address] Lary Schmitz APRN AUTOMATIC CLIPPER [address] [facility], [place] [address] documented as of this encounter Results * ABO/Rh type and screen (05/01/2020 9:25 AM CDT) ABO A 05/01/2020 10:34 AM CDT [facility] RH(D) Pos [facility] Antibody Screen Neg 05/01/2020 10:34 AM CDT [facility] Test Valid Only At [facility] 05/01/2020 9:37 AM CDT [facility] Specimen Expires 05/05/2020 05/01/2020 10:33 AM CDT [facility] Blood specimen (specimen) 05/01/2020 9:25 AM CDT 05/01/2020 9:26 AM CDT us Chester Venegas MD LAB - BLOOD BANK LALO T ORDER Edited Result - Final [facility] [address] [place] [address], [facility] [phone] documented in this encounter Visit Diagnoses Diagnosis Pre-operative laboratory examination- Primary Pre-procedural laboratory examination documented in this encounter Additional Health Concerns Infection Onset Date Last Indicated Resolved Time Rule Out COVID-19 05/19/2020 05/19/2020 05/21/2020 4:31 PM CDT Assessment Noted Time PHQ-9 Depression Total Score: 12 020 6:56 AM ASSISTANT BOYS TRACK COACH documented as of this encounter Care Teams Software Sales Consultant Relationship Specialty Start Date End Date Andrew Erickson MD PCP - General Family Practice 11/12/17 Sandoval Boggs MD [address] [place] [address] Clinical Neurophysiology 11/03/18 Jordan Erickson MD [facility] [address] [place] [address] 11/03/18 Cheryl Mullen APRN AUTOMATIC CLIPPER [address] [place] [address] Assigned PCP 04/25/20 06/07/20 Libertad Bonilla APRN AUTOMATIC CLIPPER [address] [place] [address] Assigned PCP 06/08/20 09/06/20 Sandoval Boggs MD [address] [place] [address] Assigned Neuroscience Provider 06/13/20 09/19/21 Erich Gillette MD [address] [address] Assigned Sleep Provider 06/13/20 06/12/24 Libertad Bonilla APRN AUTOMATIC CLIPPER [address] [place] [address] Assigned PCP 09/14/20 10/18/20 Cheryl Mullen APRN AUTOMATIC CLIPPER [address] [place] [address] Assigned PCP 09/07/20 09/13/20 Cheryl Mullen APRN AUTOMATIC CLIPPER [address] [place] [address] Assigned PCP 10/19/20 10/25/20 Libertad Bonilla APRN AUTOMATIC CLIPPER [address] [place] [address] Assigned PCP 10/26/20 11/12/20 Essence Wise [facility] [address] [place] [address] Pharmacist Pharmacist 06/01/21 Manish Catherine PA-C [address] [address] Assigned Neuroscience Provider 09/20/21 11/14/21 Heidy Harrell DO [address] [place] [address] MD Neurology 09/28/21 Heidy Harrell DO [address] [place] [address] Assigned Neuroscience Provider 04/17/22 Essence Wise R[facility] [address] [place] [address] Assigned MTM Pharmacist 01/16/22 05/07/22 Heidy Harrell DO [address] [place] [address] Assigned Neuroscience Provider 11/15/21 04/16/22 Essence Wise R[facility] [address] [place] [address] Assigned MTM Pharmacist 05/19/22 07/01/23 Essence Wise [facility] [address] [place] [address] Assigned MTM Pharmacist 10/14/23 Pablito Paulson MD [address] [place] [address] Assigned Pulmonology Provider 03/13/24 Phuc Cruz MD [address] [place] [address] Cardiovascular Disease 09/20/24 01/02/25 Phuc Cruz MD Assigned Heart and Vascular Provider 10/14/24 01/10/25 Claudia Loya APRN AUTOMATIC CLIPPER [address] [place] [address] Assigned Heart and Vascular Provider 01/11/25 documented as of this encounter
--- OUTSIDE RECORDS SUMMARY | 2025-02-08 09:16 | XMS_ITS | Encounter Summary ---
Author Organization [facility] Address [address] [place] [address] Care Team Providers Care Crossword Puzzle Maker Name Role Phone Andrew Erickson MD Primary Care Provider [phone] Sandoval Boggs MD Unavailable [phone] Jordan Erickson MD Unavailable [phone] Erich Gillette MD Unavailable [phone] Essence Wise [facility] Unavailable [phone] Heidy Harrell DO Unavailable [phone] Heidy Harrell DO Unavailable [phone] Essence Wise [facility] Unavailable [phone] Pablito Paulson MD Unavailable Phuc Cruz MD Unavailable Unavailab Phuc Barraza MD Unavailable Unavailab Claudia Rodrigez APRN [facility] Unavailable [phone] Encounter Details Date Type Department Care Team [...] AM CDT Legal Sex Male 3:26 AM COMMUNITY HEALTH PLANNING DIRECTOR Gender Identity Male 04/09/2020 8:36 AM CDT Sexual Orientation Straight 04/09/2020 8: 36 AM CDT documented as of this encounter Plan of Treatment Upcoming Encounters Date Type Department Care Team (Late st Contact Info) Description 07/10/2025 12:00 PM COMMUNITY HEALTH PLANNING DIRECTOR Office Visit [facility] [address] [address] Lary Schmitz, HIGH SCHOOL ASSISTANT FOOTBALL COACH [facility] [address] [place] [address] [id number] [place] [address] documented as of this encounter Visit Diagnoses Diagnosis Polyneuropathy- Primary Unspecified hereditary and idiopathic peripheral neuropathy documented in this encounter Additional Health Concerns Assessment Noted Time PHQ-9 Depression Total Score: 14 021 7:02 AM CDT documented as of this encounter Care Teams Crossword Puzzle Maker Relationship Specialty Start Date End Date Andrew Erickson MD PCP - General Family Practice 11/12/17 Sandoval Boggs MD [address] [place] [address] Clinical Neurophysiology 11/03/18 Jordan Erickson MD [facility] [address] [place] [address] 11/03/18 Erich Gillette MD [address] [facility] [address] [place] [address] Assigned Sleep Provider 06/13/20 06/12/24 Essence Wise [facility] [address] [place] [address] Pharmacist Pharmacist 06/01/21 Heidy Harrell DO [address] [place] [address] Neurology 09/28/21 Heidy Harrell DO [address] [place] [address] Assigned Neuroscience Provider 04/17/22 Essence Wise [facility] [address] [place] [address] Assigned MTM Pharmacist 10/14/23 Pablito Paulson MD [address] [place] [address] Assigned Pulmonology Provider 03/13/24 Phuc Cruz MD [address] [place] [address] Cardiovascular Disease 09/20/24 01/02/25 Phuc Cruz MD Assigned Heart and Vascular Provider 10/14/24 01/10/25 Claudia Loya APRN FILM LIBRARIAN [address] [address] Assigned Heart and Vascular Provider 01/11/25 documented as of this encounter
--- OUTSIDE RECORDS SUMMARY | 2025-02-08 09:16 | XMS_ITS | Clinical Summary ---
Author Organization [facility] Address [address] [place] [address] Care Team Providers Care Applications Developer Name Role Phone Andrew Erickson MD Primary Care Provider [phone] Sandoval Boggs MD Unavailable [phone] Jordan Erickson MD Unavailable [phone] Essence Wise [facility] Unavailable Heidy Harrell DO Unavailable Heidy Harrell DO Unavailable Essence Wise [facility] Unavailable [phone] Pablito Paulson MD Unavailable Claudia Loya APRN TRUST ADMINISTRATIVE ASSISTANT Unavailable [phone] Allergies Active Allergy Reactions Criticality Noted Date Comments Amylase Rash Low 02/07/2020 Cascara Unknown 02/07/2020 Pancrelipase (Att-Port-Bbnu) Rash Low 020 Nsaids GI Disturbance 02/07/2020 Papain 12/06/2024 Serrapeptase (Serratiopeptidase) Rash Low Medications allopurinol (ZYLOPRIM) 300 MG tablet Take 300 mg by mouth daily 10/12/19 13 Active busPIRone (BUSPAR) 10 MG tablet Take 10 mg by mouth 3 times daily Active pravastatin (PRAVACHOL) 40 MG tablet Take 40 mg by mouth daily 0 08/27/19 19 Active Multiple Vitamin (MULTI-VITAMINS ) TABS Take 1 tablet by mouth daily 10/12/19 13 Active Horner-3 Fatty Acids (FISH OIL) 1200 MG capsule Take 1,200 mg by mouth daily Active DULoxetine (CYMBALTA) 60 MG capsule Take 60 mg by mouth every morning Active clonazePAM (KLONOPIN) 1 MG tabletIndicatio ns:S/P lumbar fusion Take 1 tablet (1 mg) by mouth At Bedtime 30 tablet 5 09/05/19 21 Active amylase-lipase- protease (CREON 24) 53061-74828 units CPEP per EC capsule Take 1 capsule by mouth 3 times daily (with meals) Active gabapentin (NEURONTIN) 300 MG capsule Take 300 mg by mouth at bedtime. 08/10/20 23 Active carbidopa-levod opa (SINEMET) 25-100 MG tabletIndicatio ns:Parkinson's disease (H) Take 2 tablets by mouth 2 times daily At 5-6 am and 12 pm. May take another dose in the afternoon if needed = max of 6 tablets/day 540 tablet 3 11/14/19 24 Active RESTASIS 0.05 % ophthalmic emulsion Place 1 drop into both eyes 2 times daily 12/13/19 24 Active finasteride (PROSCAR) 5 MG tablet Take 1 tablet by mouth daily at 2 pm. 07/31/20 24 Active carbidopa-levod opa (SINEMET CR) 50-200 MG CR tabletIndicatio ns:Parkinson's disease (H) Take 1 tablet by mouth at bedtime. 90 tablet 3 11/09/19 25 Active fludrocortisone (FLORINEF) 0.1 MG tabletIndicatio ns:Orthostatic hypotension Take 1 tab (0.1mg) daily 90 tablet 3 12/07/19 25 Active midodrine (PROAMATINE) 5 MG tabletIndicatio ns:Orthostatic hypotension Take 1 tablet (5 mg) by mouth 3 times daily. 90 tablet 1 12/07/19 25 025 Discontinued (Reorder (No AVS)) midodrine (PROAMATINE) 5 MG tabletIndicatio ns:Orthostatic hypotension Take 1 tablet (5 mg) by mouth 3 times daily. 90 tablet 11 01/25/20 25 025 Discontinued (Therapy completed (No AVS)) Active Problems Problem Noted Date Diagnosed Date Hyponatremia 12/06/2024 Orthostatic hypotension 11/06/2024 S/p reverse total shoulder arthroplasty 03/03/20 Hypokalemia 08/26/2020 Syncope, unspecified syncope type 08/26/2020 [...] Encounters Date Type Department Care Team Description 01/28/2025 11:30 AM CDT Office Visit [address] [place] [phone] Claudia Loya APRN CNP Orthostatic hypotension (Primary Dx); Lightheadedness; Chronic fatigue; Exertional dyspnea; Parkinson's disease, unspecified whether dyskinesia present, unspecified whether manifestations fluctuate (H) 01/28/2025 10:30 AM CDT Lab [address] [place] [phone] Hyponatremia; Primary hypertension 01/28/2025 Travel 01/24/2025 Refill [facility] [address] [place] [phone] Claudia Loya APRN TRUST ADMINISTRATIVE ASSISTANT Refill Request 01/22/2025 Telephone [facility] [address] [place] [phone] Tami Agarwal RN 01/16/2025 12:45 PM CDT Office Visit [facility] [address] [phone] Lary Schmitz APRN CNP Parkinson's disease without dyskinesia or fluctuating manifestations (H) (Primary Dx); Falls frequently; Orthostatic hypotension; Memory problem 01/16/2025 Travel 01/15/2025 Travel 12/14/2024 9:48 AM CDT - 12/14/2024 11:59 PM CDT Hospital Encounter [facility] [address] [place] [address] Claudia Loya APRN TRUST ADMINISTRATIVE ASSISTANT Discharge Disposition: Home or Self Care 12/14/2024 9:48 AM CDT - 12/14/2024 11:59 PM CDT Hospital Encounter [facility] [address] [place] [phone] Claudia Loya APRN TRUST ADMINISTRATIVE ASSISTANT Discharge Disposition: Home or Self Care 12/14/2024 9:48 AM CDT - 12/14/2024 11:59 PM CDT Hospital Encounter [facility] [address] [place] [address] Claudia Loya APRN TRUST ADMINISTRATIVE ASSISTANT Discharge Disposition: Home or Self Care 12/14/2024 9:48 AM CDT - 12/14/2024 11:59 PM CDT Hospital Encounter [facility] [address] [place] [address] Claudia Loya APRN TRUST ADMINISTRATIVE ASSISTANT Exertional dyspnea; Chronic fatigue Discharge Disposition: Home or Self Care 12/14/2024 9:30 AM CDT Lab [facility] [address] [place] [address] Orthostatic hypotension 12/14/2024 Travel 12/06/2024 8:40 AM CDT Office Visit [facility] [address] [place] [phone] Phuc Cruz MD Christenson, Kim, APRN TRUST ADMINISTRATIVE ASSISTANT Orthostatic hypotension (Primary Dx); Exertional dyspnea; Chronic fatigue; Obstructive sleep apnea syndrome; Parkinson's disease, unspecified whether dyskinesia present, unspecified whether manifestations fluctuate (H); Hyponatremia 12/06/2024 7:45 AM CDT Lab [facility] [id number] [place] [address] [address] [place] [address] Orthostatic hypotension 12/06/2024 Travel 11/19/2024 Telephone [facility] [id number] [place] [phone] Phuc Cruz MD Symptoms (Red-Flag - Elevated BP ) 11/14/2024 MyC Medical Advice [facility] [address] [address] Essence Wise [facility] from Last 3 Months Family History Relation Status Comments Father Mother Social History Tobacco Use Types Packs/Day Years Used Date Smoking Tobacco: Former Cigarettes Q uit: 1982 Smokeless Tobacco: Never Tobacco Cessation:Counseling Given: Not Answered Alcohol Use Standard Drinks/Week Comments Yes 15 [...] AM CDT Legal Sex Male 3:26 AM BRIDAL CONSULTANT Gender Identity Male 04/09/2020 8:36 AM CDT Sexual Orientation Straight 04/09/2020 8: 36 AM CDT Last Filed Vital Signs Vital Sign Reading Time Taken Comments Blood Pressure 142/98 01/28/2025 11:02 AM CDT Pulse 80 01/28/2025 11:02 AM CDT Temperature 36.4 C (97.5 F) 03/04/2022 7:50 AM CDT Respiratory Rate 16 03/04/2022 7:50 AM CDT Oxygen Saturation 99% 01/28/2025 11:02 AM CDT Inhaled Oxygen Concentration - - Weight 97 kg (213 lb 12.8 oz) 01/28/2025 11:02 A M CDT Height 190.5 cm (6' 3) 01/28/2025 11:02 AM CDT Body Mass Index 26.72 01/28/2025 11:02 AM CDT Plan of Treatment Upcoming Encounters Date Type Department Care Team (Late st Contact Info) Description 07/10/2025 12:00 PM BRIDAL CONSULTANT Office Visit [facility] [address] [phone] Lary Schmitz, PHARMACOLOGY TEACHER [address] [place] [address] Health Maintenance Due Date Last Done Comments ADVANCE CARE PLANNING 1950 ANNUAL REVIEW OF HM ORDERS 1950 ASTHMA ACTION PLAN 1950 ASTHMA CONTROL TEST 1950 URIC ACID 1950 MEDICARE ANNUAL WELLNESS VISIT 2013 ZOSTER VACCINE (2 of 3) 08/21/2014 06/26/2014 PNEUMOCOCCAL VACCINE 50+ YEARS (3 of 3 - PCV20 or PCV21) 03/19/2020 03/19/2015, 09/27/2012 FALL RISK ASSESSMENT 05/13/2023 05/13/2022, 11/15/19 RSV VACCINE (1 - 1-dose 75+ series) 11/27/2023 COVID-19 VACCINE ( season) 2024 08/18/2022, 08/09/2021, 11/18/2020, Additional history exists INFLUENZA VACCINE (Season Ended) 2025 08/16/2023, 08/09/2022, 06/16/2021, Additional history exists LIPID 06/26/2025 06/26/2024, 11/0 12/2023, 05/01/2007, Additional history exists BMP 01/28/2026 01/28/2025, 11/21, 12/06/2024, Additional history exists DIABETES SCREENING 01/29/2028 01/28/2025, 0 12/14/2024, 12/06/2024, Additional history exists DTAP/TDAP/TD VACCINE (3 - Td or Tdap) 08/09/2032 08/09/2022, 04/25/2012, 09/20/2000 COLONOSCOPY Discontinued 09/30/2010, 12/16/2004 COLORECTAL CANCER SCREENING Discontinued HEPATITIS C SCREENING Completed 10/12/2019, 020 PHQ-2 (once per calendar year) Completed 11/06/2024, 11/06/2024, 09/02/2023, Additional history exists CT COLONOGRAPHY Discontinued FIT Discontinued FLEX SIG Discontinued HPV VACCINE Aged Out No longer eligi ble based on patient's age to complete this topic MENINGITIS VACCINE Aged Out No longer eligible based on patient's age to complete this topic sDNA (Cologuard) Discontinued Medical Devices Implanted Type Area Public Records Researcher Device Identifier Shelf Expiration Date Model / Serial / Lot Bone Cement Radiopaque Simplex P Speedset 6192-1-001 Implanted:Qty : 1 on 02/13/2020 by Skip Carias MD at [facility] Cement, Bone Right: Shoulder [employer] 01/19/2021 6192-1-001 / / [id number] Creo 5.5, 7.5x50mm Fung Coated Screws Implanted:Qty : 4 on 05/02/2020 by Chester Venegas MD at [facility] Metallic Hardware/A nchor N/A: Spine Lumbar [employer] 11/25/2026 5119.1751S / / [id number] Creo 5.5, 7.5x45mm Fung Coated Screws Implanted:Qty : 1 on 05/02/2020 by Chester Venegas MD at [facility] Metallic Hardware/A nchor N/A: Spine Lumbar [employer] 07/16/2024 5119.1746S / / [id number] Creo 5.5, 7.5x45mm Fung Coated Screws Implanted:Qty : 1 on 05/02/2020 by Chester Venegas MD at [facility] Metallic Hardware/A nchor N/A: Spine Lumbar [employer] 10/10/2024 5119.1746S / / [id number] Creo 5.5, 7.5x50mm Fung Coated Screws Implanted:Qty : 2 on 05/02/2020 by Chester Venegas MD at [facility] Metallic Hardware/A nchor N/A: Spine Lumbar [employer] 12/19/2026 5119.1751S / / [id number] Creo Locking Cap Implanted:Qty : 10 on 05/02/2020 by Chester Venegas MD at [facility] Metallic Hardware/A nchor N/A: Spine Lumbar [employer] 1119.0000 / / [id number] 10SEP 2019 Rise Spacer 31d33pr, 7-14mm Implanted:Qty : 1 on 05/02/2020 by Chester Venegas MD at [facility] Metallic Hardware/A nchor N/A: Spine Lumbar [employer] 193.203 / / [id number] 10SEP 2020 Rise Spacer [id number], 8-15mm, 10deg Implanted:Qty : 1 on 05/02/2020 by Chester Venegas MD at [facility] Metallic Hardware/A nchor N/A: Spine Lumbar [employer] 193.223 / / 8008 10SEP 2020 Caliber Spacer 12-26mm, 7mm, 0-10deg Implanted:Qty : 2 on 05/02/2020 by Chester Venegas MD at [facility] Metallic Hardware/A nchor N/A: Spine Lumbar [employer] 594.273 / / 8008 SEP 2019 5.5mm Curved Olaf Bartow Chrome, 125mm Implanted:Qty : 2 on 05/02/2020 by Chester Venegas MD at [facility] Metallic Hardware/A nchor N/A: Spine Lumbar [employer] 7119.7125 / / 8008 SEP 2019 Imp Kit Syndemosis Arthrex Tightrope Knotless Ss [id number] Implanted:Qty : 2 on 09/24/2020 by Skip Carias MD at [facility] Metallic Hardware/A nchor Right: Ankle [employer] 05/21/2024 AR-8926SS / / [id number] Imp Scr Arthrex Lp Can 4.0x50mm Long Thrd Ss [id number] Implanted:Qty : 1 on 09/24/2020 by Skip Carias MD at [facility] Metallic Hardware/A nchor Right: Ankle [employer] AR-8840CL-5 0 / / IMP 4MM CANNULATED LONG THREAD 48MM Screw Bsplt 35mm 6.5mm Aqls Prfrm Glnd Rvrs Cntr Ns Mov130 - [id number] Implanted:Qty : 1 on 03/03/2022 by Skip Carias MD at [facility] Metallic Hardware/A nchor Left: Shoulder [employer] [id number] / / 9 02 MAR 2022 Screw Peripheral 5.0x34mm Pot830 - [id number] Implanted:Qty : 1 on 03/03/2022 by Skip Carias MD at [facility] Metallic Hardware/A nchor Left: Shoulder [employer] [id number] / / [id number] 02 MAR 2022 Screw Peripheral 38mm - [id number] Implanted:Qty : 1 on 03/03/2022 by Skip Carias MD at [facility] Metallic Hardware/A nchor Left: Shoulder [employer] HZT200 / / [id number] 02 MAR 2022 Baseplate Lateral Rvrs 29mm Offs 15d Wedge Augment Fif179 - [id number] Implanted:Qty : 1 on 03/03/2022 by Skip Carias MD at [facility] Total Joint Component/ Insert Left: Shoulder [employer] 01/01/2027 [id number] / [id number] / Gleosphere Lateralized Standard 42mm Gcn314 - [id number] Implanted:Qty : 1 on 03/03/2022 by Skip Carias MD at [facility] Total Joint Component/ Insert Left: Shoulder [employer] 05/20/2026 EDL357 / [id number] / Insert Hum Revision Reverse +6 42mm 12.5d [id number] - [id number] Implanted:Qty : 1 on 03/03/2022 by Skip Carias MD at [facility] Total Joint Component/ Insert Left: Shoulder [employer] 12/17/2025 CAL412N / [id number] / Tray Reverse Low Offset +0 [id number] - [id number] Implanted:Qty : 1 on 03/03/2022 by Skip Carias MD at [facility] Total Joint Component/ Insert Left: Shoulder [employer] 10/07/2026 HYX271 / [id number] / Stem Humeral Anatomic Std Ptc 7b - [id number] Implanted:Qty : 1 on 03/03/2022 by Skip Carias MD at [facility] Total Joint Component/ Insert Left: Shoulder [employer] 06/01/2026 [id number] / [id number] / Cortiloc Glenoid Augment Large Right 15 Degree Implanted:Qty : 1 on 02/13/2020 by Skip Carias MD at [facility] Right: Shoulder TORNIER 11/29/2024 [id number] / [id number] / Standard Ptc Humeral Stem Size 6b 132.5 Degree Length 86 Mm Implanted:Qty : 1 on 02/13/2020 by Skip Craias MD at [facility] Right: Shoulder TORNIER 07/04/2024 [id number] / [id number] / Stb Humeral Head 51 Mm X 20 Mm Implanted:Qty : 1 on 02/13/2020 by Skip Carias MD at [facility] Right: Shoulder TORNIER 05/26/2022 EVS338 / [id number] / Creo 5.5, 7.5x40mm Fung Coated Screw Implanted:Qty : 1 on 05/02/2020 by Chester Venegas MD at [facility] N/A: Spine Lumbar [employer] 06/25/2024 5119.1741S / / [id number] Creo 5.5, 7.5x40mm Fung Coated Screw Implanted:Qty : 1 on 05/02/2020 by Chester Venegas MD at [facility] N/A: Spine Lumbar [employer] 09/13/2024 5119.1741S / / [id number] Graft Bone Infuse Bmp Lg [id number] Implanted:Qty : 1 on 05/02/2020 by Chester Venegas MD at [facility] N/A: Spine Lumbar [employer] 12/20/2020 [id number] / / [id number] Stainless Steel 2-Hole Buttress Plate Implanted:Qty : 1 on 09/24/2020 by Skip Carias MD at [facility] Right: Ankle [id number] AR-8958-01 / / [id number] 21 Imp 4mm Cannulated Long Thread 48mm Implanted:Qty : 1 on 09/24/2020 by Skip Carias MD at [facility] Right: Ankle ARTH[employer]X AR-8840CL-4 [id number] Procedures Procedure Name Priority Date/Time Associated Diagnosis Comments BASIC METABOLIC PANEL Routine 01/28/2025 10:54 AM CDT Hyponatremia Primary hypertension NM MPI WITH LEXISCAN Routine 12/14/2024 12:32 PM CDT Exertional dyspnea Chronic fatigue BASIC METABOLIC PANEL Routine 12/14/2024 9:38 AM CDT Orthostatic hypotension BASIC METABOLIC PANEL Routine 12/06/2024 8:06 AM CDT Orthostatic hypotension LIPID PROFILE Routine 06/26/2024 10:28 AM BRIDAL CONSULTANT HEPATITIS C ANTIBODY Add-On 10/12/2019 10:31 PM BRIDAL CONSULTANT Fever, unknown origin COLONOSCOPY Routine 09/30/2010 9:40 AM BRIDAL CONSULTANT from Last 3 Months or Most Recently Relevant to Health Maintenance Results * (ABNORMAL) Basic metabolic panel (01/28/2025 10:54 AM CDT) Only the most recent of3 resultswithin the time period is included. Sodium 139 135 - 145 mmol/L 01/28/2025 [...] - 23.0 mg/dL 01/28/2025 11:23 AM CDT LABORATORY Creatinine 1.08 0.67 - 1.17 mg/dL 01/28/2025 11:23 AM CDT LABORATORY GFR Estimate 71 >60 mL/min/1.7 3m2 01/28/2025 11:23 AM CDT LABORATORY Comment:eGFR calculated us2020 CKD-EPI equation. Calcium 9.5 8.8 - 10.4 mg/dL 01/28/2025 11:23 AM CDT LABORATORY Glucose 98 70 - 99 mg/dL 01/28/2025 11:23 AM CDT LABORATORY Blood STRUCTURE OF RIGHT UPPER LIMB / Unknown Venipuncture / Unknown 01/28/2025 10:54 AM CDT 01/28/2025 10:54 AM CDT us Claudia Loya APRN TRUST ADMINISTRATIVE ASSISTANT LAB - BLOOD ORDERABLES Final Result [facility] [address] Lab (1st floor, no room number) [place] [address], [facility] * NM Lexiscan stress test (12/14/2024 12:32 PM CDT) Target HR 144 RADIANT Baseline Systolic BP 191 RADIANT Baseline Diastolic BP 117 RADIANT Last Stress Systolic BP 134 RADIANT Last Stress Diastolic BP 82 RADIANT Baseline HR 76 bpm RADIANT Max HR 103 RADIANT Max Predicted HR 72 % RADIANT Rate Pressure Product 13,802.0 RADIANT BP 55 mmHg RADIANT Left Ventricular EF 58 % RADIANT Anatomical Region Laterality Modality Chest Nuclear Medicine Narrative 12/14/2024 4:59 PM CDT The nuclear stress test is negative for inducible myocardial ischemia or infarction. Left ventricular function is normal. The left ventricular ejection fraction at rest is 55%. The left ventricular ejection fraction at stress is 58%. There is no prior study for comparison. Stress Findings A pharmacologic stress test was performed following a sitting Lexiscan protocol using 0.4 mg of intravenous regadenoson administered over 10 seconds under the supervision of Lloyd Rodriguez MD [[id number]]. The patient reported dyspnea during the stress test. ECG Baseline electrocardiogram demonstrates sinus rhythm. The stress electrocardiogram is negative for inducible ischemic EKG changes. Isotope Administration Nuclear imaging was accomplished using a one day protocol with 33 mCi of technetium sestamibi injected at the completion of Lexiscan infusion on 12/14/2024 and 10.7 mCi of technetium sestamibi at rest on 12/14/2024. Nuclear Study Quality The director of quality control images demonstrate diaphragmatic attenuation. Final image quality is satisfactory. Perfusion Defect The nuclear stress test is negative for inducible myocardial ischemia or infarction. The left ventricular ejection fraction at rest is 55%. The left ventricular ejection fraction at stress is 58%. Left ventricular function is normal. Nuclear Prior Study There is no prior study for comparison. Perfusion Scoring Stress Summed Score: 0 Percent Normal: 0.00% The left ventricular perfusion is normal. Perfusion Scoring Resting Summed Score: 0 Percent Normal: 0.00% The left ventricular perfusion is normal. Perfusion Scores: SRS Score: 0 Percentage Abnormal: 0.00% Perfusion Scores: SSS Score: 0 Percentage Abnormal: 0.00% Perfusion Scores: SDS Score: 0 Percentage Abnormal: 0.00% Wall Motion Score Index: 1.00 The left ventricular wall motion is normal. Claudia Loya PHARMACOLOGY TEACHER TRUST ADMINISTRATIVE ASSISTANT IMG NM ORDERABLES Final Result * Lipid Profile (06/26/2024 10:28 AM BRIDAL CONSULTANT) Cholesterol (External) 182 90 - 199 mg/dL NON-INTERFACED (ONBASE SCANS) LDL Cholesterol Calculated (External) 73 <100 mg/dL NON-INTERFACED (ONBASE SCANS) HDL Cholesterol (External) 93 >=40 mg/dL NON-INTERFACED (ONBASE SCANS) Blood BLOOD SPECIMEN / Unknown 06/26/2024 10:28 AM BRIDAL CONSULTANT Narrative NIKOLE PFT - 09/26/2024 10:26 AM BRIDAL CONSULTANT Verified by Nieves Arredondo on 09/26/2024. us Provider Outside LAB - BLOOD ORDERABLES Edited R esult - Final NIKOLE PFDouglas NON-INTERFACED (ONBASE SCANS) * Hepatitis C antibody (10/12/2019 10:31 PM BRIDAL CONSULTANT) Pathologist [facility] [place] Hepatitis C Antibody Nonreactive NR^Nonre active 10/15/2019 12:00 PM BRIDAL CONSULTANT [facility] Comment: Assay performance characteristics have not been established for newborns, infants, and children Blood specimen (specimen) 10/12/2019 10:31 PM BRIDAL CONSULTANT 10/12/2019 10:32 PM BRIDAL CONSULTANT us Timi Vail MD LAB - BLOOD ORDERABLES Final Result [facility] [address] [place] [address] * COLONOSCOPY (09/30/2010 9:40 AM BRIDAL CONSULTANT) COLONOSCOPY [facility] Patient Name: Kar Aguilar Procedure Date: 09/30/2010 [...] 9:40 AM RADIOLOGY RESULTS 09/30/2010 9:40 AM BRIDAL CONSULTANT Andrew Ericskon MD PROCEDURES Final Result RADIOLOGY RESULTS from Last 3 Months or Most Recently Relevant to Health Maintenance Insurance MEDICARE [facility] MEDICARE SUPPLEMENT MEDICARE BCBS OF [place] MEDICARE SUPPLEMENT MEDICARE BCBS OF [place] MEDICARE SUPPLEMENT * Guarantor: Kar Aguilar Account Type Relation to Patient Date of Phone Billing Address Medication Therapy Self 1950 [id number] [place] [address] [facility] MEDICARE SUPPLEMENT Advance Directives For more information, please contact: [phone] * Full Code (Latest Code Status on [...] patie nt/ legal decision maker Care Teams Applications Developer Relationship Specialty Start Date End Date Andrew Erickson MD PCP - General Family Practice 11/12/17 Sandoval Boggs MD [address] [place] [address] [phone] Clinical Neurophysiology 11/03/18 Jordan Erickson MD [address] [address] 11/03/18 Essence Wise [facility] [address] [place] [address] Pharmacist Pharmacist 06/01/21 Heidy Harrell DO [address] [place] [address] [phone] Neurology 09/28/21 Heidy Harrell DO [address] [place] [address] Assigned Neuroscience Provider 04/17/22 Essence Wise [facility] [address] [place] [address] Assigned MTM Pharmacist 10/14/23 Pablito Paulson MD [address] [place] [address] Assigned Pulmonology Provider 03/13/24 Claudia Loya APRN TRUST ADMINISTRATIVE ASSISTANT [address] [place] [address] Assigned Heart and Vascular Provider 01/11/25
--- OUTSIDE RECORDS SUMMARY | 2025-02-08 09:16 | XMS_ITS | Encounter Summary ---
Author Organization [place] Address [address] [place] [address] Care Team Providers Care Road Sign Installer Name Role Phone Andrew Erickson MD Primary Care Provider [phone] Sandoval Boggs MD Unavailable [phone] Jordan Erickson MD Unavailable [phone] Cheryl Mullen SERVICES TECH BANKRUPTCY MANAGER Unavailable + Libertad Bonilla SERVICES TECH BANKRUPTCY MANAGER Unavailable +[phone] Sandoval Boggs MD Unavailable +[phone] Erich Gillette MD Unavailable +[phone] Libertad Bonilla APRN BANKRUPTCY MANAGER Unavailable +[phone] Cheryl Mullen SERVICES TECH BANKRUPTCY MANAGER Unavailable + Cheryl Mullen SERVICES TECH BANKRUPTCY MANAGER Unavailable + Libertad Bonilla SERVICES TECH BANKRUPTCY MANAGER Unavailable +[phone] Essence Wise [facility] Unavailable + [phone] Manish Catherine PA-C Unavailable + [phone] Heidy Harrell DO Unavailable +[phone] Heidy Harrell DO Unavailable +[phone] Essence Wise [facility] Unavailable + [phone] Heidy Harrell DO Unavailable +[phone] Essence Wise [facility] Unavailable +[phone] Essence Wise [facility] Unavailable +[phone] Pablito Paulson MD Unavailable Phuc Cruz MD Unavailable Unavailab Phuc Barraza MD Unavailable Unavailab Claudia Rodrigez APRN BANKRUPTCY MANAGER Unavailable [phone] Encounter Details Date Type Department Care Team (Late st Contact Info) Description 04/23/2020 Orders Only [facility] [address] [place] [address] Chester Venegas MD [facility] [address] [place] [address] Pre-operative laboratory examination (Primary Dx) [...] AM CDT Legal Sex Male 3:26 AM EXPERIMENTAL AIRCRAFT MECHANIC Gender Identity Male 04/09/2020 8:36 AM CDT [...] st Contact Info) Description 07/10/2025 12:00 PM EXPERIMENTAL AIRCRAFT MECHANIC Office Visit [facility]rology Clinic [address] [address] Lary Schmitz APRN BANKRUPTCY MANAGER [address] [facility] [address] documented as of this encounter Results * Methicillin Resistant Staph Aureus PCR (04/23/2020 11:55 AM CDT) Specimen Description Nares 04/23/2020 12:33 PM CDT [facility] Methicillin Resist/Sens S. aureus PCR Negative NEG^Negat [...] nasal colonization. FDA approved assay performed using [employer] GeneXpert(R) real-time PCR. Nasal structure (body structure) 04/23/2020 11:55 AM CDT 04/23/2020 12:33 PM CDT Chester Venegas MD LAB - MICRO GENERAL ORDERABLES Final Result [facility] [address] [place], [place] [id number] [place] [address] [address] [place], [place] [address] [phone] documented in this encounter Visit Diagnoses Diagnosis Pre-operative laboratory examination- Primary Pre-procedural laboratory examination documented in this encounter Additional Health Concerns Infection Onset Date Last Indicated Resolved Time Rule Out COVID-19 05/19/2020 05/19/2020 05/21/2020 4:31 PM CDT Assessment Noted Time PHQ-9 Depression Total Score: 12 020 6:56 AM EXPERIMENTAL AIRCRAFT MECHANIC documented as of this encounter Care Teams Road Sign Installer Relationship Specialty Start Date End Date Andrew Erickson MD PCP - General Family Practice 11/12/17 Sandoval Boggs MD [address] [place] [address] Clinical Neurophysiology 11/03/18 Jordan Erickson MD [address] [address] 11/03/18 Cheryl Mullen APRN BANKRUPTCY MANAGER [address] [place] [address] Assigned PCP 04/25/20 06/07/20 Libertad Bonilla APRN BANKRUPTCY MANAGER [address] [place] [address] Assigned PCP 06/08/20 09/06/20 Sandoval Boggs MD [address] [place] [address] Assigned Neuroscience Provider 06/13/20 09/19/21 Erich Gillette MD [address] [address] Assigned Sleep Provider 06/13/20 06/12/24 Libertad Bonilla APRN BANKRUPTCY MANAGER [address] [place] [address] Assigned PCP 09/14/20 10/18/20 Cheryl Mullen APRN BANKRUPTCY MANAGER [address] [place] [address] Assigned PCP 09/07/20 09/13/20 Cheryl Mullen APRN BANKRUPTCY MANAGER [address] [place] [address] Assigned PCP 10/19/20 10/25/20 Libertad Bonilla APRN BANKRUPTCY MANAGER [address] [place] [address] Assigned PCP 10/26/20 11/12/20 Essence Wise [facility] [address] [place] [address] Pharmacist Pharmacist 06/01/21 Manish Catherine PA-C [address] [facility] [address] [address] Assigned Neuroscience Provider 09/20/21 11/14/21 Heidy Harrell DO [address] [place] [address] MD Neurology 09/28/21 Heidy Harrell DO [address] [place] [address] Assigned Neuroscience Provider 04/17/22 Essence Wise [facility] [address] [place] [address] Assigned MTM Pharmacist 01/16/22 05/07/22 Heidy Harrell DO [address] [place] [address] Assigned Neuroscience Provider 11/15/21 04/16/22 Essence Wise [facility] [address] [place] [address] Assigned MTM Pharmacist 05/19/22 07/01/23 Essence Wise [facility] [address] [place] [address] Assigned MTM Pharmacist 10/14/23 Pablito Paulson MD [address] [place] [address] Assigned Pulmonology Provider 03/13/24 Phuc Cruz MD [address] [place] [address] Cardiovascular Disease 09/20/24 01/02/25 Phuc Cruz MD Assigned Heart and Vascular Provider 10/14/24 01/10/25 Claudia Loya APRN BANKRUPTCY MANAGER [address] [place] [address] Assigned Heart and Vascular Provider 01/11/25 documented as of this encounter
--- OUTSIDE RECORDS SUMMARY | 2025-02-08 09:16 | XMS_ITS | Encounter Summary ---
Author Organization [place] Address [address] [place] [address] Care Team Providers Care Mixing Picker Tender Name Role Phone Andrew Erickson MD Primary Care Provider [phone] Sandoval Boggs MD Unavailable [phone] Jordan Erickson MD Unavailable [phone] Erich Gillette MD Unavailable [phone] Essence Wise [facility] Unavailable Heidy Harrell DO Unavailable +[phone] Heidy Harrell DO Unavailable +[phone] Essence Wise [facility] Unavailable [phone] Essence Wise [facility] Unavailable [phone] Pablito Paulson MD Unavailable Phuc Cruz MD Unavailable Unavailab Phuc Barraza MD Unavailable Unavailab Claudia Rodrigez APRN CLINICAL MARKETING MANAGER Unavailable [phone] Encounter Details Date Type Department Care Team [...] AM CDT Legal Sex Male 3:26 AM INFRASTRUCTURE ARCHITECT Gender Identity Male 04/09/2020 8:36 AM CDT [...] st Contact Info) Description 07/10/2025 12:00 PM INFRASTRUCTURE ARCHITECT Office Visit [facility] Neurology [address] [address] Lary Schmitz, RESPIRATORY SUPPORT TECHNICIAN CLINICAL MARKETING MANAGER [address] [facility] [id number] [place] [address] documented as of this encounter Visit Diagnoses Not on filedocumented in this encounter Additional Health Concerns Assessment Noted Time PHQ-9 Depression Total Score: 14 021 7:02 AM CDT documented as of this encounter Care Teams Mixing Picker Tender Relationship Specialty Start Date End Date Andrew Erickson MD PCP - General Family Practice 11/12/17 Sandoval Boggs MD [address] [place] [address] Clinical Neurophysiology 11/03/18 Jordan Erickson MD [facility] [address] [place] [address] 11/03/18 Erich Gillette MD [address] [address] Assigned Sleep Provider 06/13/20 06/12/24 Essence Wise [facility] [address] [place] [address] Pharmacist Pharmacist 06/01/21 Heidy Harrell DO [address] [place] [address] Neurology 09/28/21 Heidy Harrell DO [address] [place] [address] Assigned Neuroscience Provider 04/17/22 Essence Wise [facility] [address] [place] [address] Assigned MTM Pharmacist 05/19/22 07/01/23 Essence Wise [facility] [address] [place] [address] Assigned MTM Pharmacist 10/14/23 Pablito Paulson MD [address] [place] [address] Assigned Pulmonology Provider 03/13/24 Phuc Cruz MD [address] [place] [address] Cardiovascular Disease 09/20/24 01/02/25 Phuc Cruz MD Assigned Heart and Vascular Provider 10/14/24 01/10/25 Claudia Loya APRN CLINICAL MARKETING MANAGER [address] [place] [address] Assigned Heart and Vascular Provider 01/11/25 documented as of this encounter
--- OUTSIDE RECORDS SUMMARY | 2025-02-08 09:16 | XMS_ITS | Encounter Summary ---
Author Organization [place] Address [address] [place] [address] Care Team Providers Care Stopperer Assembler Name Role Phone Andrew Erickson MD Primary Care Provider [phone] Sandoval Boggs MD Unavailable +[phone] Jordan Erickson MD Unavailable [phone] Sandoval Boggs MD Unavailable [phone] Erich Gillette MD Unavailable +[phone] Essence Wise [facility] Unavailable +[phone] Manish Catherine PA-C Unavailable +[phone] Heidy Harrell DO Unavailable [phone] Heidy Harrell DO Unavailable +[phone] Essence Wise [facility] Unavailable +[phone] Heidy Harrell DO Unavailable +[phone] Essence Wise [facility] Unavailable +[phone] Essence Wise [facility] Unavailable +[phone] Pablito Paulson MD Unavailable Phuc Cruz MD Unavailable Unavailab Phuc Barraza MD Unavailable Unavailab Claudia Rodrigez APRN, CNP Unavailable [phone] Encounter Details Date Type Department Care Team (Late st Contact Info) Description 02/17/2021 MyC Medical Advice [facility]rology Clinic [address] 3rd [place] [id number] Sandoval Boggs MD [address] [place] [address] Social History Tobacco Use Types Packs/Day Years Used Date Smoking Tobacco: Never Smokeless Tobacco: Never Alcohol Use Standard Drinks/Week Comments Yes 0 (1 standard drink = 0.6 oz pur e alcohol) occas PHQ-2 Answer Date Recorded PHQ-2 Score 2 08/28/2019 Sex and Gender Information Value Date Recorded Sex Assigned at Male 04/09/2020 8:36 AM CDT Legal Sex Male 3:26 AM CIGARETTE MAKING MACHINE HOPPER FEEDER Gender Identity Male 04/09/2020 8:36 AM CDT Sexual Orientation Straight 04/09/2020 8: 36 AM CDT documented as of this encounter Plan of Treatment Upcoming Encounters Date Type Department Care Team (Late st Contact Info) Description 07/10/2025 12:00 PM CIGARETTE MAKING MACHINE HOPPER FEEDER Office Visit [facility] Clinic [address] [address] Lary Schmitz, [place] [address] [address] documented as of this encounter Visit Diagnoses Not on filedocumented in this encounter Additional Health Concerns Assessment Noted Time PHQ-9 Depression Total Score: 12 020 6:56 AM CIGARETTE MAKING MACHINE HOPPER FEEDER documented as of this encounter Care Teams Stopperer Assembler Relationship Specialty Start Date End Date Andrew Erickson MD PCP - General Family Practice 11/12/17 Sandoval Boggs MD [address] [place] [address] Clinical Neurophysiology 11/03/18 Jordan Erickson MD [facility] [address] [place] [address] 11/03/18 Sandoval Boggs MD [address] [place] [address] Assigned Neuroscience Provider 06/13/20 09/19/21 Erich Gillette MD [address] [address] Assigned Sleep Provider 06/13/20 06/12/24 Essence Wise [facility] [address] [place] [address] Pharmacist Pharmacist 06/01/21 Manish Catherine PA-C [address] [address] Assigned Neuroscience Provider 09/20/21 11/14/21 Heidy Harrell DO [address] [place] [address] Neurology 09/28/21 Heidy Harrell DO [address] [place] [address] Assigned Neuroscience Provider 04/17/22 Essence Wise [facility] [address] [place] [address] Assigned MTM Pharmacist 01/16/22 05/07/22 Heidy Harrell DO [address] [place] [address] Assigned Neuroscience Provider 11/15/21 04/16/22 Essence Wise [facility] [address] [place] [address] Assigned MTM Pharmacist 05/19/22 07/01/23 Essence Wise [facility] [address] [place] [address] Assigned MTM Pharmacist 10/14/23 Pablito Paulson MD [address] [place] [address] Assigned Pulmonology Provider 03/13/24 Phuc Cruz MD [address] [place] [address] Cardiovascular Disease 09/20/24 01/02/25 Phuc Cruz MD Assigned Heart and Vascular Provider 10/14/24 01/10/25 Claudia Loya APRN SEAM FELLER [address] [address] Assigned Heart and Vascular Provider 01/11/25 documented as of this encounter
--- OUTSIDE RECORDS SUMMARY | 2025-02-08 09:16 | XMS_ITS | Encounter Summary ---
Author Organization [place] Address [address] [place] [address] Care Team Providers Care Cnc Applications Engineer Name Role Phone Andrew Erickson MD Primary Care Provider [phone] Sandoval Boggs MD Unavailable [phone] Jordan Erickson MD Unavailable [phone] Sandoval Boggs MD Unavailable [phone] Erich Gillette MD Unavailable [phone] Essence Wise [facility] Unavailable +[phone] Manish Catherine PA-C Unavailable +[phone] Heidy Hrarell DO Unavailable +[phone] Heidy Harrell DO Unavailable +[phone] Essence Wise [facility] Unavailable +[phone] Heidy Harrell DO Unavailable +[phone] Essence Wise [facility] Unavailable +[phone] Essence Wise [facility] Unavailable [phone] Pablito Paulson MD Unavailable Phuc Cruz MD Unavailable Unavailab Phuc Barraza MD Unavailable Unavailab Claudia Rodrigez APRN, CNP Unavailable [phone] Encounter Details Date Type Department Care Team (Late st Contact Info) Description 02/18/2021 MyC Medical Advice [facility] Neurology Clinic [address]rd [place] [phone] Stephanie Guajardo Social History Tobacco Use Types Packs/Day Years Used Date Smoking Tobacco: Never Smokeless Tobacco: Never Alcohol Use Standard Drinks/Week Comments Yes 0 (1 standard drink = 0.6 oz pur e alcohol) occas PHQ-2 Answer Date Recorded PHQ-2 Score 2 08/28/2019 Sex and Gender Information Value Date Recorded Sex Assigned at Male 04/09/2020 8:36 AM CDT Legal Sex Male 3:26 AM K 12 SCHOOL PROFESSIONAL Gender Identity Male 04/09/2020 8:36 AM CDT Sexual Orientation Straight 04/09/2020 8: 36 AM CDT documented as of this encounter Plan of Treatment Upcoming Encounters Date Type Department Care Team (Late st Contact Info) Description 07/10/2025 12:00 PM K 12 SCHOOL PROFESSIONAL Office Visit [facility] Neurology [address] [address] Lary Schmitz, INSPECTOR AND CLERK [address] [id number] [address] documented as of this encounter Visit Diagnoses Not on filedocumented in this encounter Additional Health Concerns Assessment Noted Time PHQ-9 Depression Total Score: 12 020 6:56 AM K 12 SCHOOL PROFESSIONAL documented as of this encounter Care Teams Cnc Applications Engineer Relationship Specialty Start Date End Date Andrew Erickson MD PCP - General Family Practice 11/12/17 Sandoval Boggs MD [address] [place] [address] Clinical Neurophysiology 11/03/18 Jordan Erickson MD [address] [address] 11/03/18 Sandoval Boggs MD 9 [place] [address] Assigned Neuroscience Provider 06/13/20 09/19/21 Erich Gillette MD [address] [place] [address] Assigned Sleep Provider 06/13/20 06/12/24 Essence Wise [facility] [address] [place] [address] Pharmacist Pharmacist 06/01/21 Manish Catherine PA-C [address] [place] [address] Assigned Neuroscience Provider 09/20/21 11/14/21 Heidy Harrell DO 9 [place] [address] Neurology 09/28/21 Heidy Harrell DO [address] [place] [address] Assigned Neuroscience Provider 04/17/22 Essence Wise [facility] [address] [place] [address] Assigned MTM Pharmacist 01/16/22 05/07/22 Heidy Harrell DO [address] [place] [address] Assigned Neuroscience Provider 11/15/21 04/16/22 Essence Wise [facility] [address] [place] [address] Assigned MTM Pharmacist 05/19/22 07/01/23 Essence Wise [facility] [address] [place] [address] Assigned MTM Pharmacist 10/14/23 Pablito Paulson MD [address] [place] [address] Assigned Pulmonology Provider 03/13/24 Phuc Cruz MD [address] [place] [address] Cardiovascular Disease 09/20/24 01/02/25 Phuc Cruz MD Assigned Heart and Vascular Provider 10/14/24 01/10/25 Claudia Loya APRN SEAL MIXING OPERATOR [address] [place] [address] Assigned Heart and Vascular Provider 01/11/25 documented as of this encounter
--- OUTSIDE RECORDS SUMMARY | 2025-02-08 09:16 | XMS_ITS | Encounter Summary ---
Author Organization [place] Address [address] [place] [address] Care Team Providers Care Dust Operator Name Role Phone Andrew Erickson MD Primary Care Provider [phone] Sandoval Boggs MD Unavailable [phone] Jordan Erickson MD Unavailable [phone] Erich Gillette MD Unavailable [phone] Essence Wise [facility] Unavailable Heidy Harrell DO Unavailable [phone] Heidy Harrell DO Unavailable [phone] Essence Wise [facility] Unavailable +[phone] Heidy Harrell DO Unavailable [phone] Essence Wise [facility] Unavailable [phone] Essence Wise [facility] Unavailable [phone] Pablito Paulson MD Unavailable Phuc Cruz MD Unavailable Unavailab Phuc Barraza MD Unavailable Unavailab Claudia Rodrigez APRN MECHANICAL INTEGRITY ENGINEER Unavailable [phone] Encounter Details Date Type Department Care Team (Late st Contact Info) Description 03/01/2022 External Order Results [facility] [address] [place] [address] Outside, Provider Social History Tobacco Use Types [...] AM CDT Legal Sex Male 3:26 AM WEASAND TRIMMER Gender Identity Male 04/09/2020 8:36 AM CDT [...] st Contact Info) Description 07/10/2025 12:00 PM WEASAND TRIMMER Office Visit [facility] Neurology [address] [address] Lary Schmitz, BLENDING COORDINATOR [address], [place] [address] documented as of this encounter Procedures Procedure Name Priority Date/Time Associated Diagnosis Comments COVID-19 VIRUS (CORONAVIRUS) BY PCR (EXTERNAL RESULT) Routine 03/01/2022 11:59 AM CDT documented in this encounter Results * COVID-19 Virus (Coronavirus) by PCR (External Result) (03/01/2022 11:59 AM CDT) COVID-19 Virus by PCR (External Result) Negative Negative NON-INTERFACE D (ONBASE SCANS) 03/01/2022 11:5 9 AM CDT Clive AGUSTIN PFT - 04/02/2022 2:19 PM CDT Verified by Chloe Fan on 04/02/2022. us Provider Outside LABORATORY Edited Result - Final NIKOLE PFT NON-INTERFACED (ONBASE SCANS) documented in this encounter Visit Diagnoses Not on filedocumented in this encounter Additional Health Concerns Assessment Noted Time PHQ-9 Depression Total Score: 14 021 7:02 AM CDT documented as of this encounter Care Teams Dust Operator Relationship Specialty Start Date End Date Andrew Erickson MD PCP - General Family Practice 11/12/17 Sandvoal Boggs MD [address] [place] [address] Clinical Neurophysiology 11/03/18 Jordan Erickson MD [address] [address] 11/03/18 Erich Gillette MD [address] [address] Assigned Sleep Provider 06/13/20 06/12/24 Essence Wise, [facility] [address] [place] [address] Pharmacist Pharmacist 06/01/21 Heidy Harrell DO [address] [place] [address] 095965 Neurology 09/28/21 Heidy Harrell DO [address] [place] [address] Assigned Neuroscience Provider 04/17/22 [facility] [address] [place] [address] Assigned MTM Pharmacist 01/16/22 05/07/22 Heidy Harrell DO [address] [place] [address] Assigned Neuroscience Provider 11/15/21 04/16/22 Essence Wise [facility] [address] [place] [address] Assigned MTM Pharmacist 05/19/22 07/01/23 Essence Wise [facility] [address] [place] [address] Assigned MTM Pharmacist 10/14/23 Pablito Paulson MD [address] [place] [address] Assigned Pulmonology Provider 03/13/24 Phuc Cruz MD [address] [place] [address] Cardiovascular Disease 09/20/24 01/02/25 Phuc Cruz MD Assigned Heart and Vascular Provider 10/14/24 01/10/25 Claudia Loya APRN MECHANICAL INTEGRITY ENGINEER [address] [address] Assigned Heart and Vascular Provider 01/11/25 documented as of this encounter
--- OUTSIDE RECORDS SUMMARY | 2025-02-08 09:16 | XMS_ITS | Encounter Summary ---
Author Organization [place] Address [address] [place] [address] Care Team Providers Care Non Licensed Operator Name Role Phone Andrew Erickson MD Primary Care Provider [phone] Sandoval Boggs MD Unavailable [phone] Jordan Erickson MD Unavailable [phone] Erich Gillette MD Unavailable [phone] Essence Wise [facility] Unavailable [phone] Heidy Harrell DO Unavailable [phone] Heidy Harrell DO Unavailable [phone] Essence Wise [facility] Unavailable [phone] Essence Wise [facility] Unavailable [phone] Pablito Paulson MD Unavailable Phuc Cruz MD Unavailable Unavailab Phuc Barraza MD Unavailable Unavailab Claudia Rodrigez APRN CRYSTALLOGRAPHY TEACHER Unavailable [phone] Encounter Details Date Type Department Care Team (Late st Contact Info) Description 04/11/2023 [facility] Neurology Clinic [address] [address] [facility] Social History Tobacco Use Types Packs/Day Years [...] AM CDT Legal Sex Male 3:26 AM PUBLIC WORKS LABORER Gender Identity Male 04/09/2020 8:36 AM CDT [...] st Contact Info) Description 07/10/2025 12:00 PM PUBLIC WORKS LABORER Office Visit [facility] [address] [address] Lary Schmitz H, AD OPERATIONS ASSOCIATE CRYSTALLOGRAPHY TEACHER [address] [facility] [id number] [address] documented as of this encounter Visit Diagnoses Not on filedocumented in this encounter Additional Health Concerns Assessment Noted Time PHQ-9 Depression Total Score: 14 021 7:02 AM CDT documented as of this encounter Care Teams Non Licensed Operator Relationship Specialty Start Date End Date Andrew Erickson MD PCP - General Family Practice 11/12/17 Sandoval Boggs MD [address] [place] [address] 297945 Clinical Neurophysiology 11/03/18 Jordan Erickson MD [address] [address] 11/03/18 Erich Gillette MD [address] [address] Assigned Sleep Provider 06/13/20 06/12/24 Essence Wise [facility] [address] [place] [address] Pharmacist Pharmacist 06/01/21 Heidy Harrell DO [address] [place] [address] Neurology 09/28/21 Heidy Harrell DO [address] [place] [address] Assigned Neuroscience Provider 04/17/22 Essence Wise [facility] [address] [place] [address] Assigned MTM Pharmacist 05/19/22 07/01/23 Essence Wise [facility] [address] [place] [address] Assigned MTM Pharmacist 10/14/23 Pablito Paulson MD [address] [place] [address] Assigned Pulmonology Provider 03/13/24 Phuc Cruz MD [address] [place] [address] Cardiovascular Disease 09/20/24 01/02/25 Phuc Cruz MD Assigned Heart and Vascular Provider 10/14/24 01/10/25 Claudia Loya APRN CRYSTALLOGRAPHY TEACHER [address] [address]74695 Assigned Heart and Vascular Provider 01/11/25 documented as of this encounter
--- OUTSIDE RECORDS SUMMARY | 2025-02-08 09:17 | XMS_ITS | CCD ---
Author Name Interface, [id number] lity Address [address] [facility] [address] [place] [address] [facility] Address [facility] [address] [place] [address] Care Team Providers Care Risk Adjustment Specialist Name Role Phone Shruti Page Unavailable Unavailable Oscar Nguyen Unavailable Unavailable Isaac Ray Unavailable Unavailab le Allergies and Adverse Reactions Care Plan Reason for Visit Encounters Immunizations Diagnostic Results Medications Problems Procedures Social History Vital Signs
--- OUTSIDE RECORDS SUMMARY | 2025-02-08 09:17 | XMS_ITS | Encounter Summary ---
Author Organization [place] Address [address] [place] [address] Care Team Providers Care Bicycle Service Technician Name Role Phone Andrew Erickson MD Primary Care Provider [phone] Sandoval Boggs MD Unavailable [phone] Jordan Erickson MD Unavailable [phone] Erich Gillette MD Unavailable [phone] [facility] Unavailable [phone] Heidy Harrell DO Unavailable [phone] Heidy Harrell DO Unavailable [phone] [facility] Unavailable [phone] Pablito Paulson MD Unavailable Phuc Cruz MD Unavailable Unavailab Phuc Barraza MD Unavailable Unavailab Claudia Rodrigez APRN BARREL CHARRER HELPER Unavailable [phone] Encounter Details Date Type Department Care Team (Late st Contact Info) Description 10/05/2023 [facility] [address] [address] Essence Wise, [address] [address] Social History Tobacco Use Types [...] AM CDT Legal Sex Male 3:26 AM CARE PROGRAM RESIDENT Gender Identity Male 04/09/2020 8:36 AM CDT Sexual Orientation Straight 04/09/2020 8: 36 AM CDT documented as of this encounter Plan of Treatment Upcoming Encounters Date Type Department Care Team (Late st Contact Info) Description 07/10/2025 12:00 PM CARE PROGRAM RESIDENT Office Visit [facility] [address] [phone] Lary Schmitz, PRINCIPAL DEVELOPER [id number] [place] [address] documented as of this encounter Visit Diagnoses Not on filedocumented in this encounter Additional Health Concerns Assessment Noted Time PHQ-9 Depression Total Score: 14 021 7:02 AM CDT documented as of this encounter Care Teams Bicycle Service Technician Relationship Specialty Start Date End Date Andrew Erickson MD PCP - General Family Practice 11/12/17 Sandoval Boggs MD [address] [place] [address] Clinical Neurophysiology 11/03/18 Jordan Erickson MD [address] [address] 11/03/18 Erich Gillette MD [address] [facility] [address] [place] [address] Assigned Sleep Provider 06/13/20 06/12/[address] [facility] [address] [place] [address] Pharmacist Pharmacist 06/01/21 Heidy Harrell DO [address] [place] [address] MD Neurology 09/28/21 Heidy Harrell DO [address] [place] [address] Assigned Neuroscience Provider 04/17/[address] [facility] [address] [place] [address] Assigned MTM Pharmacist 10/14/23 Pablito Paulson MD [address] [place] [address] Assigned Pulmonology Provider 03/13/24 Phuc Cruz MD [address] [place] [address] Cardiovascular Disease 09/20/24 01/02/25 Phuc Cruz MD Assigned Heart and Vascular Provider 10/14/24 01/10/25 Claudia Loya APRN BARREL CHARRER HELPER [address] [place] [address] Assigned Heart and Vascular Provider 01/11/25 documented as of this encounter
--- OUTSIDE RECORDS SUMMARY | 2025-02-08 09:17 | XMS_ITS | Encounter Summary ---
Author Organization [place] Address [address] [facility] [place] [address] Care Team Providers Care Senior Technical Program Manager Name Role Phone Andrew Erickson MD Primary Care Provider [phone] Sandoval Boggs MD Unavailable [phone] Jordan Erickson MD Unavailable [phone] Essence Wise [facility] Unavailable [phone] Heidy Harrell DO Unavailable [phone] Heidy Harrell DO Unavailable [phone] Essence Wise [facility] Unavailable [phone] Pablito Paulson MD Unavailable Claudia Loya APRN COUPON AND BOND COLLECTION CLERK Unavailable [phone] Encounter Details Date Type Department Care Team (Latest Contact Info) Description 01/16/2025 Travel Social History Tobacco Use Types Packs/Day [...] AM CDT Legal Sex Male 3:26 AM GLACIOLOGIST Gender Identity Male 04/09/2020 8:36 AM CDT Sexual Orientation Straight 04/09/2020 8: 36 AM CDT documented as of this encounter Plan of Treatment Upcoming Encounters Date Type Department Care Team (Late st Contact Info) Description 07/10/2025 12:00 PM GLACIOLOGIST Office Visit [facility] Neurology [address] [address] Lary Schmitz, [place] COUPON AND BOND COLLECTION CLERK [address] [id number] [place] [address] documented as of this encounter Visit Diagnoses Not on filedocumented in this encounter Additional Health Concerns Assessment Noted Time PHQ-9 Depression Total Score: 8 11/07/19 25 9:03 AM CDT documented as of this encounter Care Teams Senior Technical Program Manager Relationship Specialty Start Date End Date Andrew Erickson MD PCP - General Family Practice 11/12/17 Sandoval Boggs MD [address] [place] [address] Clinical Neurophysiology 11/03/18 Jordan Erickson MD [address] [address] 11/03/18 Essence Wise, [facility] [address] [place] [address] Pharmacist Pharmacist 06/01/21 Heidy Harrell DO [address] [place] [address] Neurology 09/28/21 Heidy Harrell DO [address] [place] [address] Assigned Neuroscience Provider 04/17/22 Essence Wise, [facility] [address] [place] [address] Assigned MTM Pharmacist 10/14/23 Pablito Paulson MD [address] [place] [address] Assigned Pulmonology Provider 03/13/24 Claudia Loya APRN COUPON AND BOND COLLECTION CLERK [address] [id number] Assigned Heart and Vascular Provider 01/11/25 documented as of this encounter
--- OUTSIDE RECORDS SUMMARY | 2025-02-08 09:17 | XMS_ITS | Encounter Summary ---
Author Organization [place] Address [address] [facility] [place] [address] Care Team Providers Care Workers' Compensation Claims Supervisor Name Role Phone Andrew Erickson MD Primary Care Provider [phone] Sandoval Boggs MD Unavailable [phone] Jordan Erickson MD Unavailable [phone] Erich Gillette MD Unavailable [phone] Essence Wise [facility] Unavailable [phone] Heidy Harrell DO Unavailable [phone] Heidy Harrell DO Unavailable [phone] Essence Wise [facility] Unavailable [phone] Pablito Paulson MD Unavailable Phuc Cruz MD Unavailable Unavailab Phuc Barraza MD Unavailable Unavailab Claudia Rodrigez APRN WORK ENVIRONMENT SAFETY INSPECTOR Unavailable [phone] Encounter Details Date Type Department Care Team (Late st Contact Info) Description 11/14/[address] [facility] [address] [address] Essence Wise, [address] [address] Social History Tobacco Use Types [...] AM CDT Legal Sex Male 3:26 AM EMERGENCY SERVICE RESTORER Gender Identity Male 04/09/2020 8:36 AM CDT Sexual Orientation Straight 04/09/2020 8: 36 AM CDT documented as of this encounter Plan of Treatment Upcoming Encounters Date Type Department Care Team (Late st Contact Info) Description 07/10/2025 12:00 PM EMERGENCY SERVICE RESTORER Office Visit [facility] [address] [phone] Lary Schmitz, NETWORKS COMPUTER CONSULTANT [id number] [place] [address] documented as of this encounter Visit Diagnoses Not on filedocumented in this encounter Additional Health Concerns Assessment Noted Time PHQ-9 Depression Total Score: 14 021 7:02 AM CDT documented as of this encounter Care Teams Workers' Compensation Claims Supervisor Relationship Specialty Start Date End Date Andrew Erickson MD PCP - General Family Practice 11/12/17 Sandoval Boggs MD [address] [place] [address] Clinical Neurophysiology 11/03/18 Jordan Erickson MD [address] [address] 11/03/18 Erich Gillette MD [address] [facility] [address] [place] [address] Assigned Sleep Provider 06/13/20 06/12/24 Essence Wise [facility] [address] [place] [address] Pharmacist Pharmacist 06/01/21 Heidy Harrell DO [address] [place] [address] MD Neurology 09/28/21 Heidy Harrell DO [address] [place] [address] Assigned Neuroscience Provider 04/17/22 Essence Wise [facility] [address] [place] [address] Assigned MTM Pharmacist 10/14/23 Pablito Paulson MD [address] [place] [address] Assigned Pulmonology Provider 03/13/24 Phuc Cruz MD [address] [place] [address] Cardiovascular Disease 09/20/24 01/02/25 Phuc Cruz MD Assigned Heart and Vascular Provider 10/14/24 01/10/25 Claudia Loya APRN WORK ENVIRONMENT SAFETY INSPECTOR [address] [place] [address] Assigned Heart and Vascular Provider 01/11/25 documented as of this encounter
--- OUTSIDE RECORDS SUMMARY | 2025-02-08 09:17 | XMS_ITS ---
Author Name Interface, [id number] lity Address [address] [facility] [address] [address] Organization [facility] Address [address] [facility] [address] [place] [address] Care Team Providers Care Music Composer Name Role Phone PageHoracioShruti Unavailable Unavailable Allergies and Adverse Reactions Medication/Group Name Reaction Severity Date No known allergies Plan Date Type Value 07/10/2024 APPOINTMENT OV 30 MIN Reason for Visit OV 30 MIN Encounters Date Name 07/10/2024 Gynecomastia Medications Date Name Route Dose Frequency Instructions Start Date End Date Status Buspirone Oral TID ac tive Efbllt-Kryufefi-Yf ylase Oral Delayed Release 36,000-114,000-180 ,000 unit TID active Fludrocortisone Oral 1 tablet Mon, Wed, Fri active Duloxetine Oral Delayed Release acti ve Clonazepam Oral at bedtime active Pravastatin Sodium Oral daily active Carbidopa-Levodopa Oral 10 mg-100 mg ac tive Gabapentin Oral 2 ca psules at bedtime active Allopurinol Oral daily active Docosahexanoic Acid-Eicosapentano ic Acid Oral 120 mg-180 mg active Multivitamins Oral Tablet active tamoxifen 20 MG Oral Tablet orally 1.0 tablet daily Take whole with water. 024 active Problems Diagnosis Status Date of Diagnosi s Gynecomastia Active Melanoma Active Vital Signs Date Type Value 07/10/2024 Heart Beat 75.00 07/10/2024 Respiratory Rate 18.00 07/10/2024 Oxygen Saturation 99.00 07/10/2024 Intravascular Systolic 132 07/10/2024 Intravascular Diastolic 79 07/10/2024 BSA 2.28 07/10/2024 Weight 224.60 07/10/2024 Height 74.00 07/10/2024 BMI 28.84 07/10/2024 Pain Scale 0.00 Notes Section * Surg Benign Follow Up Note Patient Name:??ROGE VALENCIA Date of :??1950 Date of Service:??07/10/2024 Attending Physician:?Shruti Page, Isaac Ray (Plastic and Reconstructive Surgery), Oscar Nguyen (Medical Oncology) ??BREAST SURGICAL FOLLOW UP Reason for Visit: Follow-up for??symptomatic gynecomastia History of Present Illness: He returns for follow-up after completion of labs for workup of gynecomastia. ??He states that??he is still having the same symptoms that he has had for the past 4 years, notices it more when he is doing yard work and his arm is brushing against it. Imaging No new imaging Physical Exam Vitals: Blood pressure: 132/79, Sitting, R arm, Pulse: 75, Temperature: , Respirations: 18, O2 sat: 99%, AtRest, Room Air, Pain Scale: 0, Height: 74 in, Weight: 224.6 lb, BSA: 2.28, BMI: 28.84 kg/m2 Immunizations: Covid-19 vaccine (Moderna) (10/01/2022), Elsewhere; Covid-19 vaccine (Moderna) (06/05/2024), Patient declined/rejected; Covid-19 vaccine (Pfizer) (10/01/2022), Elsewhere; Covid-19 vaccine (Pfizer) (10/01/2022), Elsewhere; Flu vaccine - Adult (06/05/2024), Patient declined/rejected; Flu vaccine - Adult (10/01/2022), Elsewhere Oxygen Sats 99%, At Rest, Room Air GENERAL: Well appearing {female/male} HEENT: NCAT, EOMI, sclera anicteric CHEST: breathing non labored and even RIGHT BREAST: no well defined masses or lesions, no skin changes, no nipple discharge, no nipple retraction.?Right breast does have??fibrous dense breast tissue underlying the nipple areolar complex creating a breast mound,??however there are no discrete palpable??lesions. ??This is??tender to palpation. ??Similar to prior exam. LEFT BREAST: no well defined masses or lesions, no skin changes, no nipple discharge, no nipple retraction LYMPH: no axillary, supraclavicular, infraclavicular, or cervical lymphadenopathy bilaterally Labs:??After reviewing his recent labs, they were pertinent for a creatinine of 1.7,??testosterone??253??(low),??LH??37.4??(high)??beta-hCG 1, estradiol??21.9 pg/ml (normal).?These labs are consistent with primary??hypogonadism on??an aging male.?He did have a slight increase in his creatinine.?? The??LFTs were within normal limits.?? TSH was within normal limits. Assessment: Roge is a 73-year-old male patient following up??for his symptomatic gynecomastia. 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 Because he is having symptomatic gynecomastia, I would recommend that we do a 3- month trial of tamoxifen 20 mg daily, however because this has been going on for 4 years??there is less of a chance that this treatment??will significantly??improve his symptoms.?? He agrees with??trialing tamoxifen??in an attempt for symptomatic relief. He should continue to follow-up with his primary care doctor for management of his other comorbidities. ??Also??monitoring of his renal function due to his slight??increase in creatinine at 1.7. We did discuss that Would be surgical excision of his breast tissue.?? However at this time he is dealing with his??son with brain cancer??and??feels like surgery would not be an option right now. 30 minutes spent on day of encounter in review of records, exam, discussion, counseling, coordination of care, orders, and documentation.?? Thank you for allowing me to see ROGE VALENCIA in consult. Shruti Page DO CC: Electronically signed by Shruti Page DO 07/10/2024 09:35 MULTI SLIDE MACHINE TENDER
--- OUTSIDE RECORDS SUMMARY | 2025-02-08 09:17 | XMS_ITS ---
Author Name Interface, [id number] lity Address [address] [facility] [address] [address] [facility] Address [address] [facility] [address] [address] Care Team Providers Care Vice President Of Procurement Name Role Phone Isaac Ray Unavailable Unavailab le Allergies and Adverse Reactions Medication/Group Name Reaction Severity Date No known allergies Plan Date Type Value 07/10/2024 APPOINTMENT OV 30 MIN 07/06/2024 APPOINTMENT OV 30 MIN 06/05/2024 APPOINTMENT NEW PT CONSULT 6 0 MIN 06/05/2024 APPOINTMENT NEW PT CONSULT 6 0 MIN 05/23/2023 APPOINTMENT OV 10 MIN 11/01/2022 APPOINTMENT POST OP 10 MIN 06/05/2024 LABORDER Testosterone, fr ee and total panel 06/05/2024 LABORDER CMP 06/05/2024 LABORDER Luteinizing horm one panel 06/05/2024 LABORDER TSH w/ reflex to free T4 06/05/2024 LABORDER BHCG panel, seru m 06/05/2024 LABORDER Estradiol - LC/M S Panel Reason for Visit OV 30 MIN Encounters Date Name 11/01/2022 Gynecomastia 11/01/2022 Melanoma Immunizations Date Name Route Dose Instructions Refusal Reason Stat us Covid-19 vaccine (Moderna) Patient declined/rejected Not Administered Flu vaccine - Adult Patient declined/rejected Not Administered Diagnostic Results Date Type Test Units Lower Limit Upper Limit Result Flag Comments Status Ordered By Specimen Source Lab Address 06/26 [facility] other lab See production supply equipment tender d 06/26 [facility] other lab See production supply equipment tender d 06/26 [facility] other lab See production supply equipment tender d 06/26 [facility] other lab See production supply equipment tender d Medications Date Name Route Dose Frequency Instructions Start Date End Date Status Buspirone Oral TID ac tive Gdmkzj-Aqbqcqgn-Ke ylase Oral Delayed Release 36,000-114,000-180 ,000 unit TID active Fludrocortisone Oral 1 tablet Mon, Wed, Tue active Duloxetine Oral Delayed Release acti ve Clonazepam Oral at bedtime active Pravastatin Sodium Oral daily active Carbidopa-Levodopa Oral 10 mg-100 mg ac tive Gabapentin Oral 2 ca psules at bedtime active Allopurinol Oral daily active Docosahexanoic Acid-Eicosapentano ic Acid Oral 120 mg-180 mg active Multivitamins Oral Tablet active tamoxifen 20 MG Oral Tablet orally 1.0 tablet daily Take whole with water. active Problems Diagnosis Status Date of Diagnosi s Gynecomastia Active Melanoma Active Vital Signs Date Type Value 11/01/2022 Pain Scale 0.00 11/01/2022 Height 74.00 06/05/2024 Height 74.00 06/05/2024 BMI 27.86 06/05/2024 BSA 2.25 06/05/2024 Heart Beat 78.00 06/05/2024 Respiratory Rate 18.00 06/05/2024 Oxygen Saturation 96.00 06/05/2024 Weight 217.00 06/05/2024 Intravascular Systolic 114 06/05/2024 Intravascular Diastolic 71 06/05/2024 Pain Scale 0.00 07/10/2024 Oxygen Saturation 99.00 07/10/2024 Intravascular Systolic 132 07/10/2024 Intravascular Diastolic 79 07/10/2024 Pain Scale 0.00 07/10/2024 Weight 224.60 07/10/2024 Respiratory Rate 18.00 07/10/2024 BMI 28.84 07/10/2024 BSA 2.28 07/10/2024 Heart Beat 75.00 07/10/2024 Height 74.00
--- OUTSIDE RECORDS SUMMARY | 2025-02-08 09:17 | XMS_ITS | Encounter Summary ---
Author Organization [place] Address [address] [place] [address] Care Team Providers Care Visitor Use Assistant Name Role Phone Andrew Erickson MD Primary Care Provider [phone] Sandoval Boggs MD Unavailable [phone] Jordan Erickson MD Unavailable [phone] Cheryl Mullen CLERGY MEMBER SPORTS ACTIVITIES FOUL JUDGE Unavailable + Libertad Bonilla CLERGY MEMBER SPORTS ACTIVITIES FOUL JUDGE Unavailable +[phone] Sandoval Boggs MD Unavailable [phone] Erich Gillette MD Unavailable +[phone] Libertad Bonilla APRN SPORTS ACTIVITIES FOUL JUDGE Unavailable +[phone] Cheryl Mullen CLERGY MEMBER SPORTS ACTIVITIES FOUL JUDGE Unavailable + Cheryl Mullen CLERGY MEMBER SPORTS ACTIVITIES FOUL JUDGE Unavailable + Libertad Bonilla CLERGY MEMBER SPORTS ACTIVITIES FOUL JUDGE Unavailable +[phone] Essence Wise [facility] Unavailable + [phone] Manish Catherine PA-C Unavailable + [phone] Heidy Harrell DO Unavailable [phone] Heidy Harrell DO Unavailable +[phone] Essence Wise [facility] Unavailable + [phone] Heidy Harrell DO Unavailable +[phone] Essence Wise [facility] Unavailable [phone] Essence Wise [facility] Unavailable [phone] Pablito Paulson MD Unavailable Phuc Cruz MD Unavailable Unavailab Phuc Barraza MD Unavailable Unavailab Claudia Rodrigez APRN SPORTS ACTIVITIES FOUL JUDGE Unavailable Encounter Details Date Type Department Care Team (Late st Contact Info) Description 02/07/2020 Orders Only [facility] [address] [place] [address] Skip Carias MD [facility] [address] [place] [address] Pre-operative laboratory examination (Primary Dx) Social [...] AM CDT Legal Sex Male 3:26 AM YACHT CAPTAIN Gender Identity Male 04/09/2020 8:36 AM CDT [...] st Contact Info) Description 07/10/2025 12:00 PM YACHT CAPTAIN Office Visit [facility] [address] [address] Lary Schmitz APRN SPORTS ACTIVITIES FOUL JUDGE [address] [facility] [place], [place] [address] documented as of this encounter Results * Creatinine (02/12/2020 11:13 AM CDT) Creatinine 0.82 0.66 - 1.25 mg/dL 02/12/2020 11:40 AM CDT [facility] GFR Estimate 89 >60 mL/min/{1. 73_m2} 02/12/2020 11:40 AM CDT [facility] Comment: Non GFR Calc Starting 08/08/2018, serum creatinine based estimated GFR (eGFR) will be calculated using the Chronic Kidney Disease Epidemiology Collaboration (CKD-EPI) equation. GFR Estimate If Black >90 >60 mL/min/{1. 73_m2} 02/12/2020 11:40 AM CDT [facility] Comment: GFR Calc Starting 08/08/2018, serum creatinine based estimated GFR (eGFR) will be calculated using the Chronic Kidney Disease Epidemiology Collaboration (CKD-EPI) equation. Blood specimen (specimen) 02/12/2020 11:13 AM CDT 02/12/2020 11:14 AM CDT us Skip Carias MD LAB - BLOOD ORDERABLES Final Res ult Performing Organization Address City[facility] Co de Phone Number [facility] [address] [phone] * (ABNORMAL) Potassium (02/12/2020 11:13 AM CDT) Potassium 2.8(L) 3.4 - 5.3 mmol/L 02/12/2020 11:33 AM CDT [facility] Blood specimen (specimen) 02/12/2020 11:13 AM CDT 02/12/2020 11:14 AM CDT us Skip Carias MD LAB - BLOOD ORDERABLES Final Res ult Performing Organization Address City/[facility]/ZIP Co de Phone Number [facility] [address] [place], [place] [address] [phone] * (ABNORMAL) Hemoglobin (02/12/2020 11:13 AM CDT) Hemoglobin 12.9(L) 13.3 - 17.7 g/dL 02/12/2020 11:19 AM CDT [facility] Blood specimen (specimen) 02/12/2020 11:13 AM CDT 02/12/2020 11:14 AM CDT us Skip Carias MD LAB - BLOOD ORDERABLES Final Res ult [facility] [address] [place] [address], [facility] [phone] documented in this encounter Visit Diagnoses Diagnosis Pre-operative laboratory examination- Primary Pre-procedural laboratory examination documented in this encounter Additional Health Concerns Infection Onset Date Last Indicated Resolved Time Rule Out COVID-19 02/11/2020 02/11/2020 02/11/2020 9:11 PM CDT Rule Out COVID-19 05/19/2020 05/19/2020 05/21/2020 4:31 PM CDT Assessment Noted Time PHQ-9 Depression Total Score: 12 020 6:56 AM YACHT CAPTAIN documented as of this encounter Care Teams Visitor Use Assistant Relationship Specialty Start Date End Date Andrew Erickson MD PCP - General Family Practice 11/12/17 Sandoval Boggs MD [address] [place] [address] Clinical Neurophysiology 11/03/18 Jordan Erickson MD [address] [address] 11/03/18 Cheryl Mullen APRN SPORTS ACTIVITIES FOUL JUDGE [address] [place] [address] Assigned PCP 04/25/20 06/07/20 Libertad Bonilla APRN SPORTS ACTIVITIES FOUL JUDGE [address] [place] [address] Assigned PCP 06/08/20 09/06/20 Sandoval Boggs MD [address] [place] [address] Assigned Neuroscience Provider 06/13/20 09/19/21 Erich Gillette MD [address] [address] Assigned Sleep Provider 06/13/20 06/12/24 Libertad Bonilla APRN SPORTS ACTIVITIES FOUL JUDGE [address] [place] [address] Assigned PCP 09/14/20 10/18/20 Cheryl Mullen APRN SPORTS ACTIVITIES FOUL JUDGE [address] [place] [address] Assigned PCP 09/07/20 09/13/20 Cheryl Mullen APRN SPORTS ACTIVITIES FOUL JUDGE [address] [place] [address] Assigned PCP 10/19/20 10/25/20 Libertad Bonilla APRN SPORTS ACTIVITIES FOUL JUDGE [address] [place] [address] Assigned PCP 10/26/20 11/12/20 Essence Wise [facility] [address] [place] [address] Pharmacist Pharmacist 06/01/21 Manish Catherine PA-C [address] [address] Assigned Neuroscience Provider 09/20/21 11/14/21 Heidy Harrell DO [address] [place] [address] Neurology 09/28/21 Heidy Harrell DO [address] [place] [address] Assigned Neuroscience Provider 04/17/22 Essence Wise [facility] [address] [place] [address] Assigned MTM Pharmacist 01/16/22 05/07/22 Heidy Harrell DO [address] [place] [address] Assigned Neuroscience Provider 11/15/21 04/16/22 Essence Wise [facility] [address] [place] [address] Assigned MTM Pharmacist 05/19/22 07/01/23 Essence Wise [facility] [address] [place] [address] Assigned MTM Pharmacist 10/14/23 Pablito Paulson MD [address] [place] [address] Assigned Pulmonology Provider 03/13/24 Phuc Cruz MD [address] [place] [address] Cardiovascular Disease 09/20/24 01/02/25 Phuc Cruz MD Assigned Heart and Vascular Provider 10/14/24 01/10/25 Claudia Loya APRN [facility] [address] [place] [address] Assigned Heart and Vascular Provider 01/11/25 documented as of this encounter
--- OUTSIDE RECORDS SUMMARY | 2025-02-08 09:17 | XMS_ITS | Encounter Summary ---
Author Organization [place] Address [address] [place] [address] Care Team Providers Care Customs House Broker Name Role Phone Andrew Erickson MD Primary Care Provider Sandoval Boggs MD Unavailable [phone] Jordan Erickson MD Unavailable [phone] Essence Wise [facility] Unavailable +[phone] Heidy Harrell DO Unavailable [phone] Heidy Harrell DO Unavailable [phone] Essence Wise [facility] Unavailable [phone] Pablito Paulson MD Unavailable Claudia Loya APRN LACQUER PIN PRESS OPERATOR Unavailable [phone] Encounter Details Date Type Department Care Team (Latest Contact Info) Description 01/15/2025 Travel Social History Tobacco Use Types Packs/Day [...] AM CDT Legal Sex Male 3:26 AM TABLE RUNNER Gender Identity Male 04/09/2020 8:36 AM CDT Sexual Orientation Straight 04/09/2020 8: 36 AM CDT documented as of this encounter Plan of Treatment Upcoming Encounters Date Type Department Care Team (Late st Contact Info) Description 07/10/2025 12:00 PM TABLE RUNNER Office Visit [facility] Neurology [address] [address] Lary Schmitz, EVERETTE LACQUER PIN PRESS OPERATOR [address] [facility] [id number] [place] [address] documented as of this encounter Visit Diagnoses Not on filedocumented in this encounter Additional Health Concerns Assessment Noted Time PHQ-9 Depression Total Score: 8 11/07/19 25 9:03 AM CDT documented as of this encounter Care Teams Customs House Broker Relationship Specialty Start Date End Date Andrew Erickson MD PCP - General Family Practice 11/12/17 Sandoval Boggs MD [address] [place] [address] Clinical Neurophysiology 11/03/18 Jordan Erickson MD [address] [address] 11/03/18 Essence Wise, [facility] [address] [place] [address] Pharmacist Pharmacist 06/01/21 Heidy Harrell DO [address] [place] [address] Neurology 09/28/21 Heidy Harrell DO [address] [place] [address] Assigned Neuroscience Provider 04/17/22 Essence Wise, [facility] [address] [place] [address] Assigned MTM Pharmacist 10/14/23 Pablito Paulson MD [address] [place] [address] Assigned Pulmonology Provider 03/13/24 Claudia Loya APRN LACQUER PIN PRESS OPERATOR [address] [id number] Assigned Heart and Vascular Provider 01/11/25 documented as of this encounter
--- OUTSIDE RECORDS SUMMARY | 2025-02-08 09:17 | XMS_ITS | Encounter Summary ---
Author Organization [facility] Address [address] [facility] [place] [address] Care Team Providers Care Retirement Plan Specialist Name Role Phone Andrew Erickson MD Primary Care Provider [phone] Sandoval Boggs MD Unavailable [phone] Jordan Erickson MD Unavailable [phone] Erich Gillette MD Unavailable [phone] Essence Wise [facility] Unavailable [phone] Heidy Harrell DO Unavailable [phone] Heidy Harrell DO Unavailable [phone] Essence Wise [facility] Unavailable [phone] Pablito Paulson MD Unavailable Phuc Cruz MD Unavailable Unavailab Phuc Barraza MD Unavailable Unavailab Claudia Rodrigez APRN PLUMBING ASSEMBLER Unavailable [phone] Encounter Details Date Type Department Care Team (Late st Contact Info) Description 11/08/2023 [facility] [address] [place] [address] Maxine Manning, RN Social History [...] AM CDT Legal Sex Male 3:26 AM LOOSE HAND PACKER Gender Identity Male 04/09/2020 8:36 AM CDT Sexual Orientation Straight 04/09/2020 8: 36 AM CDT documented as of this encounter Plan of Treatment Upcoming Encounters Date Type Department Care Team (Late st Contact Info) Description 07/10/2025 12:00 PM LOOSE HAND PACKER Office Visit [facility] Neurology [address] [address] Lary Schmitz, PAPER SORTER PLUMBING ASSEMBLER [address] [facility] [id number] [address] documented as of this encounter Visit Diagnoses Not on filedocumented in this encounter Additional Health Concerns Assessment Noted Time PHQ-9 Depression Total Score: 14 021 7:02 AM CDT documented as of this encounter Care Teams Retirement Plan Specialist Relationship Specialty Start Date End Date Andrew Erickson MD PCP - General Family Practice 11/12/17 Sandoval Boggs MD [address] [place] [address] Clinical Neurophysiology 11/03/18 Jordan Erickson MD [facility] [address] [place] [address] 11/03/18 Erich Gillette MD [address] [address] Assigned Sleep Provider 06/13/20 06/12/24 Essence Wise [facility] [address] [place] [address] Pharmacist Pharmacist 06/01/21 Heidy Harrell DO [address] [place] [address] Neurology 09/28/21 Heidy Harrell DO [address] [place] [address] Assigned Neuroscience Provider 04/17/22 Essence Wise [facility] [address] [place] [address] Assigned MTM Pharmacist 10/14/23 Pablito Paulson MD [address] [place] [address] Assigned Pulmonology Provider 03/13/24 Phuc Cruz MD [address] [place] [address] Cardiovascular Disease 09/20/24 01/02/25 Phuc Cruz MD Assigned Heart and Vascular Provider 10/14/24 01/10/25 Claudia Loya APRN PLUMBING ASSEMBLER [address] [address] Assigned Heart and Vascular Provider 01/11/25 documented as of this encounter
--- OUTSIDE RECORDS SUMMARY | 2025-02-08 09:17 | XMS_ITS | Encounter Summary ---
Author Organization [place] Address [address] [place] [address] Care Team Providers Care Mortgage Loan Assistant Name Role Phone Andrew Erickson MD Primary Care Provider [phone] Sandoval Boggs MD Unavailable [phone] Jordan Erickson MD Unavailable [phone] Essence Wise [facility] Unavailable [phone] Heidy Harrell DO Unavailable [phone] Heidy Harrell DO Unavailable [phone] Essence Wise [facility] Unavailable [phone] Pablito Paulson MD Unavailable Claudia Loya APRN DIRECTOR OF SPORTS MEDICINE Unavailable Encounter Details Date Type Department Care Team (Late st Contact Info) Description 01/22/2025 Telephone [facility] Heart [address] [place] [address] Tami Agarwal, SOHAIL Social History Tobacco Use Types Packs/Day Years [...] AM CDT Legal Sex Male 3:26 AM TRANSPORT RN Gender Identity Male 04/09/2020 8:36 AM CDT Sexual Orientation Straight 04/09/2020 8: 36 AM CDT documented as of this encounter Miscellaneous Notes * Telephone Encounter - Tami Agarwal RN - 01/22/2025 2:28 PM CDT ----- Message from [employer] sent at 01/22/2025 9:02 AM CDT ----- Regarding: Dr. Cruz labs Pt is scheduled for labs next week per Dr. Cruz. Per Jolynn Horvath, the labs need to be placed under a different provider. Could you please review? Thanks! BMP ordered under patient's JAMA, Claudia Wilson CNP as Dr. Cruz has retired. documented in this encounter Plan of Treatment Upcoming Encounters Date Type Department Care Team (Late st Contact Info) Description 07/10/2025 12:00 PM TRANSPORT RN Office Visit [facility] Neurology [address] [address] Lary Schmitz APRN DIRECTOR OF SPORTS MEDICINE [address] [facility], [place] [address] documented as of this encounter Results * (ABNORMAL) Basic metabolic [...] 10:54 AM CDT 01/28/2025 10:54 AM CDT Claudia Loya APRN DIRECTOR OF SPORTS MEDICINE LAB - BLOOD ORDERABLES Final Result LABORATORY [facility] Acute Care Lab [address] Lab (1st floor, no room number) [place] [address], [facility] documented in this encounter Visit Diagnoses Diagnosis Hyponatremia- Primary Hyposmolality and/or hyponatremia Primary hypertension Unspecified essential hypertension documented in this encounter Additional Health Concerns Assessment Noted Time PHQ-9 Depression Total Score: 8 11/07/19 25 9:03 AM CDT documented as of this encounter Care Teams Mortgage Loan Assistant Relationship Specialty Start Date End Date Andrew Erickson MD PCP - General Family Practice 11/12/17 Sandoval Boggs MD [address] [place] [address] 875035 Clinical Neurophysiology 11/03/18 Jordan Ericskon MD [address] [address] 11/03/18 Essence Wise, [facility] [address] [place] [address] Pharmacist Pharmacist 06/01/21 Heidy Harrell DO [address] [place] [address] Neurology 09/28/21 Heidy Harrell DO [address] [place] [address] Assigned Neuroscience Provider 04/17/22 Essence Wise [facility] [address] [place] [address] Assigned MTM Pharmacist 10/14/23 Pablito Paulson MD [address] [place] [address] Assigned Pulmonology Provider 03/13/24 Claudia Loya APRN DIRECTOR OF SPORTS MEDICINE [address] [address] Assigned Heart and Vascular Provider 01/11/25 documented as of this encounter
--- OUTSIDE RECORDS SUMMARY | 2025-02-08 09:17 | XMS_ITS | Encounter Summary ---
Author Organization [place] Address [address] [place] [address] Care Team Providers Care Silver Designer Name Role Phone Andrew Erickson MD Primary Care Provider [phone] Sandoval Boggs MD Unavailable [phone] Jordan Erickson MD Unavailable [phone] Libertad Bonilla APRN PURCHASING BUYER Unavailable +[phone] Sandoval Boggs MD Unavailable [phone] Erich Gillette MD Unavailable [phone] Libertad Bonilla APRN PURCHASING BUYER Unavailable +[phone] Cheryl Mullen RAFTER CUTTING MACHINE OPERATOR PURCHASING BUYER Unavailable + Cheryl Mullen RAFTER CUTTING MACHINE OPERATOR PURCHASING BUYER Unavailable + Libertad Bonilla APRN PURCHASING BUYER Unavailable +[phone] Essence Wise [facility] Unavailable + [phone] Manish Catherine PA-C Unavailable + [phone] Heidy Harrell DO Unavailable [phone] Heidy Harrell DO Unavailable [phone] Essence Wise [facility] Unavailable [phone] Heidy Harrell DO Unavailable [phone] Essence Wise [facility] Unavailable +[phone] Essence Wise [facility] Unavailable + [phone] Pablito Paulson MD Unavailable Phuc Cruz MD Unavailable Unavailab Phuc Barraza MD Unavailable Unavailab Claudia Rodrigez APRN PURCHASING BUYER Unavailable [phone] Reason for Visit * Reason Comments Medication Refill Encounter Details Date Type Department Care Team (Late st Contact Info) Description 06/09/2020 Refill [facility] [address] [place] [address] Cheryl Mullen APRN PURCHASING BUYER [address] [place] [address] Medication Refill Social History Tobacco Use Types Packs/Day Years Used Date Smoking Tobacco: Never Smokeless Tobacco: Never Alcohol Use Standard Drinks/Week Comments Yes 0 (1 standard drink = 0.6 oz pur e alcohol) occas PHQ-2 Answer Date Recorded PHQ-2 Score 2 08/28/2019 Sex and Gender Information Value Date Recorded Sex Assigned at Male 04/09/2020 8:36 AM CDT Legal Sex Male 3:26 AM FARM CONSULTANT Gender Identity Male 04/09/2020 8:36 AM [...] st Contact Info) Description 07/10/2025 12:00 PM FARM CONSULTANT Office Visit [facility] Neurology Clinic [address] [address] Lary Schmitz, RAFTER CUTTING MACHINE OPERATOR PURCHASING BUYER [address] [facility] [id number] [place], [place] [id number] documented as of this encounter Visit Diagnoses Diagnosis S/P lumbar fusion Arthrodesis status documented in this encounter Additional Health Concerns Assessment Noted Time PHQ-9 Depression Total Score: 12 020 6:56 AM FARM CONSULTANT documented as of this encounter Care Teams Silver Designer Relationship Specialty Start Date End Date Andrew Erickson MD PCP - General Family Practice 11/12/17 Sandoval Boggs MD [address] [place] [address] Clinical Neurophysiology 11/03/18 Jordan Erickson MD [address] [address] 11/03/18 Libertad Bonilla APRN PURCHASING BUYER [address] [place] [address] Assigned PCP 06/08/20 09/06/20 Sandoval Boggs MD [address] [place] [address] Assigned Neuroscience Provider 06/13/20 09/19/21 Erich Gillette MD [address] [address] Assigned Sleep Provider 06/13/20 06/12/24 Libertad Bonilla APRN PURCHASING BUYER [address] [place] [address] Assigned PCP 09/14/20 10/18/20 Cheryl Mullen APRN PURCHASING BUYER [address] [place] [address] Assigned PCP 09/07/20 09/13/20 Cheryl Mullen APRN PURCHASING BUYER [address] [place] [address] Assigned PCP 10/19/20 10/25/20 Libertad Bonilla APRN PURCHASING BUYER [address] [place] [address] Assigned PCP 10/26/20 11/12/20 Essence Wise [facility] [address] [place] [address] Pharmacist Pharmacist 06/01/21 Manish Catherine PA-C [address] [facility] [address] [address] Assigned Neuroscience Provider 09/20/21 11/14/21 Heidy Harrell DO [address] [place] [address] Neurology 09/28/21 Heidy Harrell DO [address] [place] [address] Assigned Neuroscience Provider 04/17/22 Essence Wise [facility] [address] [place] [address] Assigned MTM Pharmacist 01/16/22 05/07/22 Heidy Harrell DO [address] [place] [address] Assigned Neuroscience Provider 11/15/21 04/16/22 Essence Wise [facility] [address] [place] [address] Assigned MTM Pharmacist 05/19/22 07/01/23 Essence Wise [facility] [address] [place] [address] Assigned MTM Pharmacist 10/14/23 Pablito Paulson MD [address] [place] [address] Assigned Pulmonology Provider 03/13/24 Phuc Cruz MD [address] [place] [address] Cardiovascular Disease 09/20/24 01/02/25 Phuc Cruz MD Assigned Heart and Vascular Provider 10/14/24 01/10/25 Claudia Loya APRN PURCHASING BUYER [address] [place] [address] Assigned Heart and Vascular Provider 01/11/25 documented as of this encounter
--- OUTSIDE RECORDS SUMMARY | 2025-02-08 09:17 | XMS_ITS | Encounter Summary ---
Author Organization [place] Address [address] [facility] [address] Care Team Providers Care Communications Writer Name Role Phone Andrew Erickson MD Primary Care Provider [phone] Sandoval Boggs MD Unavailable +[phone] Jordan Erickson MD Unavailable [phone] Erich Gillette MD Unavailable +[phone] Essence Wise [facility] Unavailable +[phone] Heidy Harrell DO Unavailable +[phone] Heidy Harrell DO Unavailable +[phone] Essence Wise [facility] Unavailable +[phone] Pablito Paulson MD Unavailable Phuc Cruz MD Unavailable Unavailab Phuc Barraza MD Unavailable Unavailab Claudia Rodrigez APRN COMPUTER SYSTEM VALIDATION SPECIALIST Unavailable [phone] Encounter Details Date Type Department Care Team (Late st Contact Info) Description 10/21/2023 [facility] [address] [place] [address] Rosa Reina RN Social History [...] AM CDT Legal Sex Male 3:26 AM DISCHARGE RN Gender Identity Male 04/09/2020 8:36 AM CDT Sexual Orientation Straight 04/09/2020 8: 36 AM CDT documented as of this encounter Plan of Treatment Upcoming Encounters Date Type Department Care Team (Late st Contact Info) Description 07/10/2025 12:00 PM DISCHARGE RN Office Visit [facility] [address] [address] Lary Schmitz, YARD SUPERVISOR COMPUTER SYSTEM VALIDATION SPECIALIST [address] [facility] [id number] [place], [place] [id number] documented as of this encounter Visit Diagnoses Not on filedocumented in this encounter Additional Health Concerns Assessment Noted Time PHQ-9 Depression Total Score: 14 021 7:02 AM CDT documented as of this encounter Care Teams Communications Writer Relationship Specialty Start Date End Date Andrew Erickson MD PCP - General Family Practice 11/12/17 Sandoval Boggs MD [address] [place] [address] Clinical Neurophysiology 11/03/18 Jordan Erickson MD [facility] [address] [place] [address] 11/03/18 Erich Gillette MD [address] [address] Assigned Sleep Provider 06/13/20 06/12/24 Essence Wies [facility] [address] [place] [address] 15679 Pharmacist Pharmacist 06/01/21 Heidy Harrell DO [address] [place] [address] Neurology 09/28/21 Heidy Harrell DO [address] [place] [address] 16280 Assigned Neuroscience Provider 04/17/22 Essence Wise [facility] [address] [place] [address] 70653 Assigned MTM Pharmacist 10/14/23 Pablito Paulson MD [address] [place] [address] Assigned Pulmonology Provider 03/13/24 Phuc Cruz MD [address] [place] [address] Cardiovascular Disease 09/20/24 01/02/25 Phuc Cruz MD Assigned Heart and Vascular Provider 10/14/24 01/10/25 Claudia Loya APRN COMPUTER SYSTEM VALIDATION SPECIALIST [address] [address] Assigned Heart and Vascular Provider 01/11/25 documented as of this encounter
--- OUTSIDE RECORDS SUMMARY | 2025-02-08 09:17 | XMS_ITS ---
Author Name Interface, [id number] Address [address] [facility] [address] [address] [facility] Address [address] [facility] [address] [address] Care Team Providers Care Ship Propeller Finisher Name Role Phone Isaac Ray Unavailable Unavailab [...] Ordered By Specimen Source Lab Address 06[place]26 [facility] [place] See student ministries director d 06/26 [facility] other lab See student ministries director d 06/26 [facility] other lab See student ministries director d 06/26 [facility] [place] lab See student ministries director d Medications Date Name Route Dose Frequency Instructions Start Date End Date Status Buspirone Oral TID ac tive Ielzmi-Tgdlsysg-Wi ylase Oral Delayed Release 36,000-114,000-180 ,000 unit [...]
--- OUTSIDE RECORDS SUMMARY | 2025-02-08 09:17 | XMS_ITS | Encounter Summary ---
Author Organization [place] Address [address] [place] [address] Care Team Providers Care Deputy Felony Clerk Name Role Phone Andrew Erickson MD Primary Care Provider [phone] Sandoval Boggs MD Unavailable [phone] Jordan Erickson MD Unavailable [phone] Libertad Bonilla APRN MUNICIPAL BOND TRADER Unavailable +[phone] Sandoval Boggs MD Unavailable +[phone] Erich Gillette MD Unavailable +[phone] Libertad Bonilla APRN MUNICIPAL BOND TRADER Unavailable +[phone] Cheryl Mullen CRO MUNICIPAL BOND TRADER Unavailable + Cheryl Mullen CRO MUNICIPAL BOND TRADER Unavailable + Libertad Bonilla APRN MUNICIPAL BOND TRADER Unavailable +[phone] Essence Wise [facility] Unavailable + [phone] Manish Catherine PA-C Unavailable + [phone] Heidy Harrell DO Unavailable +[phone] Heidy Harrell DO Unavailable +[phone] Essence Wise [facility] Unavailable +[phone] Heidy Harrell DO Unavailable +[phone] Essence Wise [facility] Unavailable +[phone] Essence Wise [facility] Unavailable +[phone] Pablito Paulson MD Unavailable Phuc Cruz MD Unavailable Unavailab Phuc Barraza MD Unavailable Unavailab kaylah Loya Claudia GAVIRIA MUNICIPAL BOND TRADER Unavailable Reason for Visit * Reason Comments Medication Refill Encounter Details Date Type Department Care Team (Late st Contact Info) Description [facility]/30[facility]2020 [facility] [address] [place] [address] Cheryl Mullen APRN MUNICIPAL BOND TRADER [address] [place] [address] Medication Refill Social History Tobacco Use Types Packs/Day Years Used Date Smoking Tobacco: Never Smokeless Tobacco: Never Alcohol Use Standard Drinks/Week Comments Yes 0 (1 standard drink = 0.6 oz pur e alcohol) occas PHQ-2 Answer Date Recorded PHQ-2 Score 2 08/28/2019 Sex and Gender Information Value Date Recorded Sex Assigned at Male 04/09/2020 8:36 AM CDT Legal Sex Male 3:26 AM TIMBER SUPERVISOR Gender Identity Male 04/09/2020 8:36 AM CDT Sexual Orientation Straight 04/09/2020 8: 36 AM CDT COVID-19 Exposure Response Date Recorded In the last month, have you been in contact with someone who was confirmed or suspected to have Coronavirus / COVID-19? No / Unsure 06/30/2020 7:36 AM TIMBER SUPERVISOR documented as of this encounter Miscellaneous Notes * Telephone Encounter - Holli Real APRN CNP - 07/01/2020 7:16 PM CST This patient is no longer under our care. [facility] provider only covered the patient whenthey were at a fci or assisted living facility we provide care at. Please direct this refill request to the patient's current provider. Per [facility] records, that may be Andrew Erickson ER SUPERVISOR documented in this encounter Plan of Treatment Upcoming Encounters Date Type Department Care Team (Late st Contact Info) Description 07/10/2025 12:00 PM TIMBER SUPERVISOR Office Visit [facility] [address] [place] [phone] Lary Schmitz APRN MUNICIPAL BOND TRADER [address] [place] [address] [id number] [address] documented as of this encounter Visit Diagnoses Not on filedocumented in this encounter Additional Health Concerns Assessment Noted Time PHQ-9 Depression Total Score: 12 020 6:56 AM TIMBER SUPERVISOR documented as of this encounter Care Teams Deputy Felony Clerk Relationship Specialty Start Date End Date Andrew Erickson MD PCP - General Family Practice 11/12/17 Sandoval Boggs MD [address] [place] [address] Clinical Neurophysiology 11/03/18 Jordan Erickson MD [address] [address] 11/03/18 Libertad Bonilla APRN MUNICIPAL BOND TRADER [address] [place] [address] Assigned PCP 06/08/20 09/06/20 Sandoval Boggs MD [address] [place] [address] Assigned Neuroscience Provider 06/13/20 09/19/21 Erich Gillette MD [address] [facility] [address] [address] Assigned Sleep Provider 06/13/20 06/12/24 iLbertad Bonilla APRN MUNICIPAL BOND TRADER [address] [place] [address] Assigned PCP 09/14/20 10/18/20 Cheryl Mullen APRN MUNICIPAL BOND TRADER [address] [place] [address] Assigned PCP 09/07/20 09/13/20 Cheryl Mullen APRN MUNICIPAL BOND TRADER [address] [place] [address] Assigned PCP 10/19/20 10/25/20 Libertad Bonilla APRN MUNICIPAL BOND TRADER [address] [place] [address] Assigned PCP 10/26/20 11/12/20 Essence Wise, [facility] [address] [place] [address] Pharmacist Pharmacist 06/01/21 Manish Catherine PA-C [address] [facility] [address] [address] Assigned Neuroscience Provider 09/20/21 11/14/21 Heidy Harrell DO [address] [place] [address] Neurology 09/28/21 Heidy Harrell DO [address] [place] [address] Assigned Neuroscience Provider 04/17/22 Essence Wise [facility] [address] [place] [address] Assigned MTM Pharmacist 01/16/22 05/07/22 Heidy Harrell DO [address] [place] [address] Assigned Neuroscience Provider 11/15/21 04/16/22 Essence Wise [facility] [address] [place] [address] 11858 Assigned MTM Pharmacist 05/19/22 07/01/23 Essence Wise [facility] [address] [place] [address] Assigned MTM Pharmacist 10/14/23 Pablito Paulson MD [address] [place] [address] Assigned Pulmonology Provider 03/13/24 Phuc Cruz MD [address] [place] [address] Cardiovascular Disease 09/20/24 01/02/25 Phuc Cruz MD Assigned Heart and Vascular Provider 10/14/24 01/10/25 Claudia Loya APRN MUNICIPAL BOND TRADER [address] [address] Assigned Heart and Vascular Provider 01/11/25 documented as of this encounter
--- OUTSIDE RECORDS SUMMARY | 2025-02-08 09:17 | XMS_ITS ---
Author Name Interface, [id number] lity Address [address] [facility] [address] [place] [address] Organization [place] [facility] Address [address] [facility] [address] [place] [address] Care Team Providers Care Forging Die Sinker Name Role Phone PageHoracioShruti Unavailable Unavailable Allergies and Adverse Reactions Medication/Group Name Reaction Severity Date No known allergies Plan Date Type Value 07/10/2024 APPOINTMENT OV 30 MIN Reason for Visit OV 30 MIN Encounters Date Name 07/10/2024 Gynecomastia Medications Date Name Route Dose Frequency Instructions Start Date End Date Status Buspirone Oral TID ac tive Eaxilo-Ruylubxw-Cz ylase Oral Delayed Release 36,000-114,000-180 ,000 unit [...] signed by Shruti Page DO 07/10/2024 09:35 MIDDLE STITCHER
--- OUTSIDE RECORDS SUMMARY | 2025-02-08 09:17 | XMS_ITS | Encounter Summary ---
Author Organization [place] Address [address] [facility] [place] [address] Care Team Providers Care Microsoft Office Instructor Name Role Phone Andrew Erickson MD Primary Care Provider [phone] Sandoval Boggs MD Unavailable [phone] Jordan Erickson MD Unavailable [phone] Essence Wise [facility] Unavailable +[phone] Heidy Harrell DO Unavailable +[phone] Heidy Harrell DO Unavailable [phone] Essence Wise [facility] Unavailable +[phone] Pablito Paulson MD Unavailable Claudia Loya APRN TERMITE TREATER HELPER Unavailable [phone] Encounter Details Date Type Department Care Team (Latest Contact Info) Description 01/28/2025 Travel Social History Tobacco Use Types Packs/Day [...] AM CDT Legal Sex Male 3:26 AM GROUNDS 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 Gender Identity Male 04/09/2020 8:36 AM CDT Sexual Orientation Straight 04/09/2020 8: 36 AM CDT documented as of this encounter Plan of Treatment Upcoming Encounters Date Type Department Care Team (Late st Contact Info) Description 07/10/2025 12:00 PM GROUNDS WORKER Office Visit [facility] Neurology [address] [address] Lary Schmitz, HOUSEHOLD MANAGER TERMITE TREATER HELPER [address] [facility] [place] [address] documented as of this encounter Visit Diagnoses Not on filedocumented in this encounter Additional Health Concerns Assessment Noted Time PHQ-9 Depression Total Score: 8 11/07/19 25 9:03 AM CDT documented as of this encounter Care Teams Microsoft Office Instructor Relationship Specialty Start Date End Date Andrew Erickson MD PCP - General Family Practice 11/12/17 Sandoval Boggs MD [address] [place] [address] Clinical Neurophysiology 11/03/18 Jordan Erickson MD [address] [address] 11/03/18 Essence Wise, [facility] [address] [place] [address] Pharmacist Pharmacist 06/01/21 Heidy Harrell DO [address] [place] [address] Neurology 09/28/21 Heidy Harrell DO [address] [place] [address] Assigned Neuroscience Provider 04/17/22 Essence Wise, [facility] [address] [place] [address] Assigned MTM Pharmacist 10/14/23 Pablito Paulson MD [address] [place] [address] 178085 Assigned Pulmonology Provider 03/13/24 Claudia Loya APRN TERMITE TREATER HELPER [address] [id number] Assigned Heart and Vascular Provider 01/11/25 documented as of this encounter
--- OUTSIDE RECORDS SUMMARY | 2025-02-08 09:17 | XMS_ITS | Encounter Summary ---
Author Organization [place] Address [address] [facility] [place] [address] Care Team Providers Care Desktop Support Consultant Name Role Phone Andrew Erickson MD Primary Care Provider [phone] Sandoval Boggs MD Unavailable [phone] Jordan Erickson MD Unavailable [phone] Essence Wise [facility] Unavailable +[phone] Heidy Harrell DO Unavailable [phone] Heidy Harrell DO Unavailable +[phone] Essence Wise [facility] Unavailable [phone] Pablito Paulson MD Unavailable Phuc Cruz MD Unavailable Unavailab Phuc Barraza MD Unavailable Unavailab Claudia Rodrigez APRN [facility] Unavailable [phone] Reason for Visit * Reason Onset Date Comments Symptoms 11/19/2024 Red-Flag - [place] john BP Encounter Details Date Type Department Care Team (Late st Contact Info) Description 11/19/2024 Telephone [facility] [address] [place] [address] Phuc Cruz MD Symptoms (Red-Flag - Elevated BP ) Social History Tobacco Use Types Packs/Day [...] AM CDT Legal Sex Male 3:26 AM 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 3:55 pm - 131/89 HR 85 Action Taken: Patient transferred to: Triage Unable to get triage so left a voice message on the triage line Travel Screening: Not Applicable Thank you! [facility] Date of Service: documented in this encounter Plan of Treatment Upcoming Encounters Date Type Department Care Team (Late st Contact Info) Description 07/10/2025 12:00 PM SAFETY ENGINEER PRESSURE VESSELS Office Visit [facility] [address] [address] Lary Schmitz, MONOMER RECOVERY SUPERVISOR [address] [address] documented as of this encounter Visit Diagnoses Not on filedocumented in this encounter Additional Health Concerns Assessment Noted Time PHQ-9 Depression Total Score: 8 11/07/19 25 9:03 AM CDT documented as of this encounter Care Teams Desktop Support Consultant Relationship Specialty Start Date End Date Andrew Erickson MD PCP - General Family Practice 11/12/17 Sandoval Boggs MD [address] [place] [address] Clinical Neurophysiology 11/03/18 Jordan Erickson MD [address] [address] 11/03/18 Essence Wise [facility] [address] [place] [address] Pharmacist Pharmacist 06/01/21 Heidy Harrell DO [address] [place] [address] Neurology 09/28/21 Heidy Harrell DO [address] [place] [address] Assigned Neuroscience Provider 04/17/22 Essence Wise [facility] [address] [place] [address] Assigned MTM Pharmacist 10/14/23 Pablito Paulson MD [address] [place] [address] Assigned Pulmonology Provider 03/13/24 Phuc Cruz MD [address] [place] [address] Cardiovascular Disease 09/20/24 01/02/25 Phuc Cruz MD Assigned Heart and Vascular Provider 10/14/24 01/10/25 Claudia Loya APRN SUPPLIES PACKER [address] [place] [address] Assigned Heart and Vascular Provider 01/11/25 documented as of this encounter
--- OUTSIDE RECORDS SUMMARY | 2025-02-08 09:17 | XMS_ITS | Encounter Summary ---
Author Organization [facility] Address [address] [place] [address] Care Team Providers Care Outbound Sales Consultant Name Role Phone Andrew Erickson MD Primary Care Provider [phone] Sandoval Boggs MD Unavailable [phone] Jordan Erickson MD Unavailable [phone] Cheryl Mullen ENT CONSULTANT DEPARTMENTAL BUYER Unavailable + Libertad Boinlla ENT CONSULTANT DEPARTMENTAL BUYER Unavailable +[phone] Sandoval Boggs MD Unavailable [phone] Erich Gillette MD Unavailable +[phone] Libertad Bonilla APRN DEPARTMENTAL BUYER Unavailable +[phone] Cheryl Mullen ENT CONSULTANT DEPARTMENTAL BUYER Unavailable + Cheryl Mullen ENT CONSULTANT DEPARTMENTAL BUYER Unavailable + Libertad Bonilla ENT CONSULTANT DEPARTMENTAL BUYER Unavailable +[phone] Essence Wise [facility] Unavailable + [phone] Manish Catherine PA-C Unavailable + [phone] Heidy Harrell DO Unavailable [phone] Heidy Harrell DO Unavailable +[phone] Essence Wise [facility] Unavailable + [phone] Heidy Harrell DO Unavailable [phone] Essence Wise [facility] Unavailable [phone] Essence Wise [facility] Unavailable [phone] Pablito Paulson MD Unavailable Phuc Cruz MD Unavailable Unavailab Phuc Barraza MD Unavailable Unavailab Claudia Rodrigez APRN DEPARTMENTAL BUYER Unavailable [phone] Encounter Details Date Type Department Care Team (Late st Contact Info) Description 02/07/2020 Orders Only [facility] [address] [place] [address] Skip Carias MD [facility] [address] [place] [address] Pre-operative laboratory examination (Primary Dx) Social [...] AM CDT Legal Sex Male 3:26 AM TELEGRAPH PLANT MAINTAINER Gender Identity Male 04/09/2020 8:36 AM CDT [...] st Contact Info) Description 07/10/2025 12:00 PM TELEGRAPH PLANT MAINTAINER Office Visit [facility] [address] [address] Lary Schmitz APRN DEPARTMENTAL BUYER [address] [facility] [id number] [address] documented as of this encounter Results * ABO/Rh type and screen (02/12/2020 11:13 AM CDT) ABO A 02/12/2020 12:24 PM CDT [facility] RH(D) Pos [facility] Antibody Screen Neg 02/12/2020 12:24 PM CDT [facility] Test Valid Only At [facility] 02/12/2020 12:48 PM CDT [facility] Specimen Expires 02/15/2020 02/12/2020 12:48 PM CDT [facility] Blood specimen (specimen) 02/12/2020 11:13 AM CDT 02/12/2020 11:14 AM CDT us Skip Carias MD LAB - BLOOD BANK TEST ORDER Dixie l Result Performing Organization Address City/State/[facility] Co de Phone Number [facility] [address] [place] [address], [facility] [phone] documented in this encounter Visit Diagnoses Diagnosis Pre-operative laboratory examination- Primary Pre-procedural laboratory examination documented in this encounter Additional Health Concerns Infection Onset Date Last Indicated Resolved Time Rule Out COVID-19 02/11/2020 02/11/2020 02/11/2020 9:11 PM CDT Rule Out COVID-19 05/19/2020 05/19/2020 05/21/2020 4:31 PM CDT Assessment Noted Time PHQ-9 Depression Total Score: 12 020 6:56 AM TELEGRAPH PLANT MAINTAINER documented as of this encounter Care Teams Outbound Sales Consultant Relationship Specialty Start Date End Date Andrew Erickson MD PCP - General Family Practice 11/12/17 Sandoval Boggs MD [address] [place] [address] Clinical Neurophysiology 11/03/18 Jordan Erickson MD [facility] [address] [place] [address] 11/03/18 Cheryl Mullen APRN DEPARTMENTAL BUYER [address] [place] [address] Assigned PCP 04/25/20 06/07/20 Libertad Bonilla APRN DEPARTMENTAL BUYER [address] [place] [address] Assigned PCP 06/08/20 09/06/20 Sandoval Boggs MD [address] [place] [address] Assigned Neuroscience Provider 06/13/20 09/19/21 Erich Gillette MD [address] [address] Assigned Sleep Provider 06/13/20 06/12/24 Libertad Bonilla APRN DEPARTMENTAL BUYER [address] [place] [address] Assigned PCP 09/14/20 10/18/20 Cheryl Mullen APRN DEPARTMENTAL BUYER [address] [place] [address] Assigned PCP 09/07/20 09/13/20 Cheryl Mullen APRN DEPARTMENTAL BUYER [address] [place] [address] Assigned PCP 10/19/20 10/25/20 Libertad Bonilla, ENT CONSULTANT DEPARTMENTAL BUYER [address] [place] [address] Assigned PCP 10/26/20 11/12/20 Essence Wise [facility] [address] [place] [address] Pharmacist Pharmacist 06/01/21 Manish Catherine PA-C [address] [address] Assigned Neuroscience Provider 09/20/21 11/14/21 Heidy Harrell DO [address] [place] [address] MD Neurology 09/28/21 Heidy Harrell DO [address] [place] [address] Assigned Neuroscience Provider 04/17/22 Essence Wise [facility] [address] [place] [address] Assigned MTM Pharmacist 01/16/22 05/07/22 Heidy Harrell DO [address] [place] [address] Assigned Neuroscience Provider 11/15/21 04/16/22 Essence Wise [facility] [address] [place] [address] Assigned MTM Pharmacist 05/19/22 07/01/23 Essence Wise, [facility] [address] [place] [address] Assigned MTM Pharmacist 10/14/23 Pablito Paulson MD [address] [place] [address] Assigned Pulmonology Provider 03/13/24 Phuc Cruz MD [address] [place] [address] Cardiovascular Disease 09/20/24 01/02/25 Phuc Crzu MD Assigned Heart and Vascular Provider 10/14/24 01/10/25 Claudia Loya APRN DEPARTMENTAL BUYER [address] [place] [address] Assigned Heart and Vascular Provider 01/11/25 documented as of this encounter
--- OUTSIDE RECORDS SUMMARY | 2025-02-08 09:17 | XMS_ITS | Clinical Summary ---
Author Organization [facility] Address Formerly [facility] [place] [address] Care Team Providers Care Sap Sd Analyst Name Role Phone Lino Erickson MD Primary Care Provider [phone] Allergies Active Allergy Reactions Criticality Noted Date [...] 24 hrs. 20 Tablet 3 3:54 PM PHOTOCOPY OPERATOR 10/12/19 23 Active Active Problems Problem Noted [...] citalopram. No therapist. Peripheral neuropathy- lower extremity 3 Overview (10/12/2012): Taking primidone due to [...] Resolved Date Dizziness and giddiness 02/06/200809/23 Immunizations Immunization Administration Dates Next Due Influenza, IIV4 06/30/2018 [...] on file Legal Sex Male 6:06 AM PHOTOCOPY OPERATOR Gender Identity Not on file Sexual Orientation Not on file Obstetrics History Last Filed Vital Signs Vital Sign Reading Time Taken Comments Blood Pressure 109/73 10/12/2022 5:00 PM PHOTOCOPY OPERATOR Pulse 86 10/12/2022 5:00 PM PHOTOCOPY OPERATOR Temperature 36.9 C (98.4 F) 10/12/2022 5:00 PM PHOTOCOPY OPERATOR Respiratory Rate 18 10/12/2022 5:00 PM PHOTOCOPY OPERATOR Oxygen Saturation 97% 10/12/2022 5:00 PM PHOTOCOPY OPERATOR Inhaled Oxygen Concentration - - Weight 98.6 kg (217 lb 6 oz) 10/08/2022 10:38 AM PHOTOCOPY OPERATOR Height 190.5 cm (6' 3) 10/08/2022 10:38 AM PHOTOCOPY OPERATOR Body Mass Index 27.17 10/08/2022 10:38 AM PHOTOCOPY OPERATOR Plan of Treatment Health Maintenance Due Date Last Done Comments Tdap 11/27/1961 Depression screening for age 12+ 1960 Hepatitis C screening for age 18-79 1966 Tetanus booster 1968 Pneumococcal series for age 50+ (1 of 1 - PCV) 1998 Zoster (shingles) series for age 50+ (1 of 2) 1998 BMI (ht and wt on same day) for age 18+ 08/16/2019 08/16/2018 RSV vaccine for adults or (1 - 1-dose 75+ series) 11/27/2023 COVID-19 vaccine series ( season) 2024 08/18/2022, 08/09/2021, 11/18/2020, Additional history exists Influenza Vaccine (Season Ended) 2025 06/30/2018 Hepatitis B series for 19+ Aged Out N o longer eligible based on patient's age to complete this topic Medical Devices Implanted Type Area Refrigeration Repair Supervisor Device Identifier Shelf Expiration Date Model / Serial / Lot Shell Hip Lt Od56mm Shinto Adm X3 - [id number] Implanted:Qty: 1 on 10/23/2012 at [facility] Left: Hip Walter [employer] 1235-2-562 # / / [id number] Stem Hip Sz8 127deg Accolade Ii - [id number] Implanted:Qty: 1 on 10/23/2012 at [facility] Left: Hip [place] [employer] [id number]# / / [id number] Liner Hip Id28 Od56mm Adm X3 Pe - [id number] Implanted:Qty: 1 on 10/23/2012 at [facility] Left: Hip Walter [employer] 1236-2-856 # / / [id number] Head Hip Od28mm +4 Biolox Delta C-Taper Alumina Cer - [id number] Implanted:Qty: 1 on 10/23/2012 at [facility] Left: Hip Walter [employer] 6570-0-228 # / / [id number] Shell Hip Rt Od58mm Shinto Adm X3 - [id number] Implanted:Qty: 1 on 10/23/2018 by Francis Huerta MD at [facility] Right: Hip [employer] 07/20/2021 [id number]# / / [id number] Stem Hip Sz8 127deg Accolade Ii - [id number] Implanted:Qty: 1 on 10/23/2018 by Francis Huerta MD at [facility] Right: Hip [employer] 07/05/2023 [id number]# / / [id number] Liner Hip Id28 Od58mm Adm X3 Pe - [id number] Implanted:Qty: 1 on 10/23/2018 by Francis Huerta MD at [facility] Right: Hip [employer] 03/07/2023 [id number]# / / [id number] Head Hip Od28mm +4 Biolox Delta C-Taper Alumina Cer - [id number] Implanted:Qty: 1 on 10/23/2018 by Francis Huerta MD at [facility] Right: Hip [employer] 09/06/2023 6570-0-228 # / / [id number] Insurance MEDICARE PART B HB ONLY MEDICARE PART A HB ONLY [facility] MEDICARE PB ONLY Advance Directives * [...] 5:13 AM 10/23/2012 12:02 PM Care Teams Sap Sd Analyst Relationship Specialty Start Date End Date Lino Erickson MD PCP - General 02/08/08
--- OUTSIDE RECORDS SUMMARY | 2025-02-08 09:17 | XMS_ITS | Encounter Summary ---
Author Organization [facility] Address [address] [place] [address] Care Team Providers Care Oliving Machine Operator Name Role Phone Andrew Erickson MD Primary Care Provider [phone] Sandoval Boggs MD Unavailable [phone] Jordan Erickson MD Unavailable [phone] Essence Wise [facility] Unavailable [phone] Heidy Harrell DO Unavailable [phone] Heidy Harrell DO Unavailable [phone] Essence Wise [facility] Unavailable [phone] Pablito Paulson MD Unavailable Claudia Loya APRN MATH AND SCIENCE INSTRUCTOR Unavailable [phone] Reason for Visit * Reason Onset Date Comments Refill Request 01/24/2025 Encounter Details Date Type Department Care Team (Late st Contact Info) Description 01/24/2025 Refill [facility] [address] [facility] [address] [place] [phone] Claudia Loya APRN MATH AND SCIENCE INSTRUCTOR [address] [facility] [place] [id number] Refill Request Social History Tobacco Use Types Packs/Day Years [...] AM CDT Legal Sex Male 3:26 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 Medication meets criteria for refill. documented in this encounter Plan of Treatment Upcoming Encounters Date Type Department Care Team (Late st Contact Info) Description 07/10/2025 12:00 PM KNITTER MACHINE Office Visit [facility] Neurology Clinic [address] [address] Lary Schmitz H, SHIPPING [facility] [address] [place] [address] [id number] [place] [address] documented as of this encounter Visit Diagnoses Diagnosis Orthostatic hypotension documented in this encounter Additional Health Concerns Assessment Noted Time PHQ-9 Depression Total Score: 8 11/07/19 25 9:03 AM CDT documented as of this encounter Care Teams Oliving Machine Operator Relationship Specialty Start Date End Date Andrew Erickson MD PCP - General Family Practice 11/12/17 Sandoval Boggs MD [address] [place] [address] [phone] Clinical Neurophysiology 11/03/18 Jordan Erickson MD [address] [address] 11/03/18 Essence Wise, [facility] [address] [place] [address] Pharmacist Pharmacist 06/01/21 Heidy Harrell DO [address] [place] [address] 996885 Neurology 09/28/21 Heidy Harrell DO [address] [place] [address] [phone] Assigned Neuroscience Provider 04/17/22 Essence Wise, [facility] [address] [place] [address] Assigned MTM Pharmacist 10/14/23 Pablito Paulson MD [address] [place] [address] Assigned Pulmonology Provider 03/13/24 Claudia Loya APRN MATH AND SCIENCE INSTRUCTOR [address] [place] [address] Assigned Heart and Vascular Provider 01/11/25 documented as of this encounter
--- OUTSIDE RECORDS SUMMARY | 2025-02-08 09:17 | XMS_ITS | Encounter Summary ---
Author Organization [facility] Address [address] [place] [address] Care Team Providers Care Parts Back Counter Man Name Role Phone Andrew Erickson MD Primary Care Provider [phone] Sandoval Boggs MD Unavailable [phone] Jordan Erickson MD Unavailable [phone] Cheryl Mullen FLAT SORTING MACHINE CLERK GAS METER CHECKER Unavailable + Libertad Bonilla FLAT SORTING MACHINE CLERK GAS METER CHECKER Unavailable [phone] Sandoval Boggs MD Unavailable [phone] Erich Gillette MD Unavailable +[phone] Libertad Bonilla APRN GAS METER CHECKER Unavailable +[phone] Cheryl Mullen FLAT SORTING MACHINE CLERK GAS METER CHECKER Unavailable + Cheryl Mullen FLAT SORTING MACHINE CLERK GAS METER CHECKER Unavailable + Libertad Bonilla FLAT SORTING MACHINE CLERK GAS METER CHECKER Unavailable +[phone] Essence Wise [facility] Unavailable + [phone] Manish Catherine PA-C Unavailable + [phone] Heidy Harrell DO Unavailable [phone] Heidy Harrell DO Unavailable [phone] Essence Wise [facility] Unavailable + [phone] Heidy Harrell DO Unavailable [phone] Essence Wise [facility] Unavailable [phone] Essence Wise [facility] Unavailable [phone] Pablito Paulson MD Unavailable Phuc Cruz MD Unavailable Unavailab Phuc Barraaz MD Unavailable Unavailab Claudia Rodrigez APRN GAS METER CHECKER Unavailable [phone] Reason for Visit * Reason Comments Medication Refill Encounter Details Date Type Department Care Team (Late st Contact Info) Description 06/03/2020 Refill [facility] [address] [place] [address] Cheryl Mullen APRN GAS METER CHECKER [address] [place], [place] [id number] Medication Refill Social History Tobacco Use Types Packs/Day Years Used Date Smoking Tobacco: Never Smokeless Tobacco: Never Alcohol Use Standard Drinks/Week Comments Yes 0 (1 standard drink = 0.6 oz pur e alcohol) occas PHQ-2 Answer Date Recorded PHQ-2 Score 2 08/28/2019 Sex and Gender Information Value Date Recorded Sex Assigned at Male 04/09/2020 8:36 AM CDT Legal Sex Male 3:26 AM ESTATE PLANNING DIRECTOR Gender Identity Male 04/09/2020 8:36 [...] * Telephone Encounter - Holli Real APRN GAS METER CHECKER - 06/04/2020 7:59 AM CDT This patient is no longer under our care. [facility] provider only covered the patient whenthey were at a prison or assisted living facility we provide care at. Please direct this refill request to the patient's current provider. Per [facility] records, that may be Andrew Erickson. documented in this encounter Plan of Treatment Upcoming Encounters Date Type Department Care Team (Late st Contact Info) Description 07/10/2025 12:00 PM ESTATE PLANNING DIRECTOR Office Visit [facility] [address] [phone] Lary Schmitz APRN GAS METER CHECKER [address] [facility] [id number] [address] documented as of this encounter Visit Diagnoses Diagnosis S/P lumbar fusion Arthrodesis status documented in this encounter Additional Health Concerns Assessment Noted Time PHQ-9 Depression Total Score: 12 020 6:56 AM ESTATE PLANNING DIRECTOR documented as of this encounter Care Teams Parts Back Counter Man Relationship Specialty Start Date End Date Andrew Erickson MD PCP - General Family Practice 11/12/17 Sandoval Boggs MD [address] [place] [address] Clinical Neurophysiology 11/03/18 Jordan Erickson MD [facility] [address] [place] [address] 11/03/18 Cheryl Mullen APRN GAS METER CHECKER [facility] [place] [address] Assigned PCP 04/25/20 06/07/20 Libertad Bonilla APRN GAS METER CHECKER [address] [place] [address] Assigned PCP 06/08/20 09/06/20 Sandoval Boggs MD [address] [place] [address] Assigned Neuroscience Provider 06/13/20 09/19/21 Erich Gillette MD [address] [place], [place] [address] Assigned Sleep Provider 06/13/20 06/12/24 Libertad Bonilla APRN GAS METER CHECKER [address] [place] [address] Assigned PCP 09/14/20 10/18/20 Cheryl Mullen APRN GAS METER CHECKER [address] [place] [address] Assigned PCP 09/07/20 09/13/20 Cheryl Mullen APRN GAS METER CHECKER [address] [place] [address] Assigned PCP 10/19/20 10/25/20 Libertad Bonilla APRN GAS METER CHECKER [address] [place] [address] Assigned PCP 10/26/20 11/12/20 Essence Wise [facility] [address] [place] [address] Pharmacist Pharmacist 06/01/21 Manish Catherine PA-C [address] [place] [address] Assigned Neuroscience Provider 09/20/21 11/14/21 Heidy Harrell DO [address] [place] [address] Neurology 09/28/21 Heidy Harrell DO [address] [place] [address] Assigned Neuroscience Provider 04/17/22 Essence Wise [facility] [address] [place] [address] Assigned MTM Pharmacist 01/16/22 05/07/22 Heidy Harrell DO [address] [place] [address] Assigned Neuroscience Provider 11/15/21 04/16/22 Essence Wise [facility] [address] [place] [address] Assigned MTM Pharmacist 05/19/22 07/01/23 Essence Wise [facility] [address] [place] [address] Assigned MTM Pharmacist 10/14/23 Pablito Paulson MD [address] [place] [address] Assigned Pulmonology Provider 03/13/24 Phuc Cruz MD [address] [place] [address] Cardiovascular Disease 09/20/24 01/02/25 Phuc Cruz MD Assigned Heart and Vascular Provider 10/14/24 01/10/25 Claudia Loya APRN [facility] [address] [place] [address] Assigned Heart and Vascular Provider 01/11/25 documented as of this encounter
--- OUTSIDE RECORDS SUMMARY | 2025-02-08 09:18 | XMS_ITS | Encounter Summary ---
Author Organization [facility] Address [address] [place] [address] Care Team Providers Care Wallpaperer Name Role Phone Andrew Erickson MD Primary Care Provider [phone] Sandoval Boggs MD Unavailable [phone] Jordan Erickson MD Unavailable [phone] Essence Wise [facility] Unavailable Heidy Harrell DO Unavailable [phone] Heidy Harrell DO Unavailable [phone] Essence Wise [facility] Unavailable [phone] Pablito Paulson MD Unavailable Phuc Cruz MD Unavailable Unavailab Phuc Barraza MD Unavailable Unavailab Claudia Rodrigez APRN [facility] Unavailable [phone] Encounter Details Date Type Department Care Team (Late st Contact Info) Description 10/23/2024 [facility] Medical Advice [address] [address] Tara Roberson Ap, PT [address] [place] [address] Social History Tobacco Use Types Packs/Day Years [...] AM CDT Legal Sex Male 3:26 AM PROPERTY FIELD INSPECTOR Gender Identity Male 04/09/2020 8:36 AM CDT Sexual Orientation Straight 04/09/2020 8: 36 AM CDT documented as of this encounter Plan of Treatment Upcoming Encounters Date Type Department Care Team (Late st Contact Info) Description 07/10/2025 12:00 PM PROPERTY FIELD INSPECTOR Office Visit [facility] Neurology Clinic [address] [phone] Lary Schmitz, EVERETTE TRAY LINE WORKER [address] [place] [address] [id number] [place] [address] documented as of this encounter Visit Diagnoses Not on filedocumented in this encounter Additional Health Concerns Assessment Noted Time PHQ-9 Depression Total Score: 14 021 7:02 AM CDT documented as of this encounter Care Teams Wallpaperer Relationship Specialty Start Date End Date Andrew Erickson MD PCP - General Family Practice 11/12/17 Sandoval Boggs MD [address] [place] [address] 329515 Clinical Neurophysiology 11/03/18 Jordan Erickson MD [facility] [address] [place] [address] 11/03/18 Essence Wise, [facility] [address] [place] [address] Pharmacist Pharmacist 06/01/21 Heidy Harrell DO [address] [place] [address] Neurology 09/28/21 Heidy Harrell DO [address] [place] [address] Assigned Neuroscience Provider 04/17/22 Essence Wise, [facility] [address] [place] [address] Assigned MTM Pharmacist 10/14/23 Pablito Paulson MD [address] [place] [address] Assigned Pulmonology Provider 03/13/24 Phuc Cruz MD [address] [place] [address] Cardiovascular Disease 09/20/24 01/02/25 Phuc Cruz MD Assigned Heart and Vascular Provider 10/14/24 01/10/25 Claudia Loya APRN TRAY LINE WORKER [address] [facility] [place] [address] Assigned Heart and Vascular Provider 01/11/25 documented as of this encounter
--- OUTSIDE RECORDS SUMMARY | 2025-02-08 09:18 | XMS_ITS | Encounter Summary ---
Author Organization [facility] Address [address] [place] [address] Care Team Providers Care Finishing Machine Operator Automatic Name Role Phone Andrew Erickson MD Primary Care Provider [phone] Sandoval Boggs MD Unavailable [phone] Jordan Erickson MD Unavailable [phone] Essence Wise [facility] Unavailable [phone] Heidy Harrell DO Unavailable [phone] Heidy Harrell DO Unavailable [phone] Essence Wise [facility] Unavailable [phone] Pablito Paulson MD Unavailable Phuc Cruz MD Unavailable Unavailab Phuc Barraza MD Unavailable Unavailab Claudia Rodrigez APRN OFFSET PRESS OPERATOR HELPER Unavailable [phone] Encounter Details Date Type Department Care Team (Late st Contact Info) Description 11/14/2024 [facility] Medical Advice [facility] Neurology [facility] [address] [facility] [address] [place] [address] Essence Wise, [facility] [address] [place] [address] Social History Tobacco Use Types [...] AM CDT Legal Sex Male 3:26 AM PACKAGE COLLECTOR Gender Identity Male 04/09/2020 8:36 AM CDT Sexual Orientation Straight 04/09/2020 8: 36 AM CDT documented as of this encounter Plan of Treatment Upcoming Encounters Date Type Department Care Team (Late st Contact Info) Description 07/10/2025 12:00 PM PACKAGE COLLECTOR Office Visit [facility] Neurology [address] [address] Lary Schmitz, MOLDING ASSOCIATE OFFSET PRESS OPERATOR HELPER [address] [place] [address] [id number] [address] documented as of this encounter Visit Diagnoses Not on filedocumented in this encounter Additional Health Concerns Assessment Noted Time PHQ-9 Depression Total Score: 8 11/07/19 25 9:03 AM CDT documented as of this encounter Care Teams Finishing Machine Operator Automatic Relationship Specialty Start Date End Date Andrew Erickson MD PCP - General Family Practice 11/12/17 Sandoval Boggs MD [address] [place] [address] 553205 Clinical Neurophysiology 11/03/18 Jordan Erickson MD [facility] [address] [place] [address] 11/03/18 Essence Wise, [facility] [address] [place] [address] Pharmacist Pharmacist 06/01/21 Heidy Harrell DO [address] [place] [address] Neurology 09/28/21 Heidy Harrell DO [address] [place] [address] Assigned Neuroscience Provider 04/17/22 Essence Wise, [facility] [address] [place] [address] Assigned MTM Pharmacist 10/14/23 Pablito Paulson MD [address] [place] [address] Assigned Pulmonology Provider 03/13/24 Phuc Cruz MD [address] [place] [address] Cardiovascular Disease 09/20/24 01/02/25 Phuc Cruz MD Assigned Heart and Vascular Provider 10/14/24 01/10/25 Claudia Loya APRN OFFSET PRESS OPERATOR HELPER [address] [place] [address] Assigned Heart and Vascular Provider 01/11/25 documented as of this encounter
--- OUTSIDE RECORDS SUMMARY | 2025-02-09 00:55 | XMS_ITS | Encounter Summary ---
Author Organization [facility] Address [address] [facility] [place] [address] Care Team Providers Care Supervisor Tubing Name Role Phone Andrew Erickson MD Primary Care Provider [phone] Sandoval Boggs MD Unavailable [phone] Jordan Erickson MD Unavailable [phone] Erich Gillette MD Unavailable [phone] Essence Wise [facility] Unavailable [phone] Heidy Harrell DO Unavailable [phone] Heidy Harrell DO Unavailable [phone] Essence Wise [facility] Unavailable [phone] Pablito Paulson MD Unavailable Phuc Cruz MD Unavailable Unavailab Phuc Barraza MD Unavailable Unavailab Claudia Rodrigez APRN MANAGER OF ADMINISTRATION Unavailable [phone] Encounter Details Date Type Department Care Team (Late st Contact Info) Description 02/22/2024 [facility] Medical Advice [facility] [address] [address] Elena Menchaca Social History Tobacco [...] AM CDT Legal Sex Male 3:26 AM PAINT ROLLER COVERS SUPERVISOR Gender Identity Male 04/09/2020 8:36 AM CDT Sexual Orientation Straight 04/09/2020 8: 36 AM CDT documented as of this encounter Plan of Treatment Upcoming Encounters Date Type Department Care Team (Late st Contact Info) Description 07/10/2025 12:00 PM PAINT ROLLER COVERS SUPERVISOR Office Visit [facility] Neurology [address] [address] Lary Schmitz, [facility] [address] [facility] [id number] [place] [address] documented as of this encounter Visit Diagnoses Not on filedocumented in this encounter Additional Health Concerns Assessment Noted Time PHQ-9 Depression Total Score: 14 021 7:02 AM CDT documented as of this encounter Care Teams Supervisor Tubing Relationship Specialty Start Date End Date Andrew Erickson MD PCP - General Family Practice 11/12/17 Sandoval Boggs MD [address] [place] [address] Clinical Neurophysiology 11/03/18 Jordan Erickson MD [facility] [address] [place] [address] 11/03/18 Erich Gillette MD [address] [address] Assigned Sleep Provider 06/13/20 06/12/24 Essence Wise [facility] [address] [place] [address] Pharmacist Pharmacist 06/01/21 Heidy Harrell DO [address] [place] [address] Neurology 09/28/21 Heidy Harrell DO [address] [place] [address] Assigned Neuroscience Provider 04/17/22 Essenec Wise [facility] [address] [place] [address] Assigned MTM Pharmacist 10/14/23 Pablito Paulson MD [address] [place] [address] Assigned Pulmonology Provider 03/13/24 Phuc Cruz MD [address] [place] [address] Cardiovascular Disease 09/20/24 01/02/25 Phuc Cruz MD Assigned Heart and Vascular Provider 10/14/24 01/10/25 Claudia Loya APRN MANAGER OF ADMINISTRATION [address] [address] Assigned Heart and Vascular Provider 01/11/25 documented as of this encounter
--- OUTSIDE RECORDS SUMMARY | 2025-02-09 00:55 | XMS_ITS ---
Author Name [id number] Address [address] [facility] [address] [address] Organization [facility] Address [address] [facility] [address] [place] [address] Care Team Providers Care Catering Manager Name Role Phone PageHoracioShruti Unavailable Unavailable Allergies and Adverse Reactions Medication/Group Name Reaction Severity Date No known allergies Plan Date Type Value 07/10/2024 APPOINTMENT OV 30 MIN Reason for Visit OV 30 MIN Encounters Date Name 07/10/2024 Gynecomastia Medications Date Name Route Dose Frequency Instructions Start Date End Date Status Buspirone Oral TID ac tive Ztdobe-Owdjikck-Iv ylase Oral Delayed Release 36,000-114,000-180 ,000 unit [...] signed by Shruti Page DO 07/10/2024 09:35 SUPERVISOR SEWING ROOM
--- OUTSIDE RECORDS SUMMARY | 2025-02-09 00:55 | XMS_ITS | Encounter Summary ---
Author Organization [facility] Address [address] [place] [address] Care Team Providers Care Cheese Weigher Name Role Phone Andrew Erickson MD Primary Care Provider [phone] Sandoval Boggs MD Unavailable [phone] Jordan Erickson MD Unavailable +[phone] Sandoval Boggs MD Unavailable +[phone] Erich Gillette MD Unavailable +[phone] Essence Wise [facility] Unavailable +[phone] Manish Catherine PA-C Unavailable +[phone] Heidy Harrell DO Unavailable +[phone] Heidy Harrell DO Unavailable +[phone] Essence Wise [facility] Unavailable +[phone] Heidy Harrell DO Unavailable +[phone] Essence Wise [facility] Unavailable +[phone] Essence Wise [facility] Unavailable +[phone] Pablito Paulson MD Unavailable Phuc Cruz MD Unavailable Unavailab Phuc Barraza MD Unavailable Unavailab Claudia Rodrigez APRN, CNP Unavailable [phone] Encounter Details Date Type Department Care Team (Late st Contact Info) Description 12/29/2020 MyC Medical Advice [facility] Virtual Care [address] [place] [address], [address] [place] [address] Latonia Madden Social History Tobacco [...] AM CDT Legal Sex Male 3:26 AM FAMILY MEDIATOR Gender Identity Male 04/09/2020 8:36 AM CDT Sexual Orientation Straight 04/09/2020 8: 36 AM CDT documented as of this encounter Plan of Treatment Upcoming Encounters Date Type Department Care Team (Late st Contact Info) Description 07/10/2025 12:00 PM FAMILY MEDIATOR Office Visit [facility] [address] [address] Lary Schmitz H, TUBE HANDLER [facility] [address] [facility] [id number] [place] [address] documented as of this encounter Visit Diagnoses Not on filedocumented in this encounter Additional Health Concerns Assessment Noted Time PHQ-9 Depression Total Score: 12 020 6:56 AM FAMILY MEDIATOR documented as of this encounter Care Teams Cheese Weigher Relationship Specialty Start Date End Date Andrew Erickson MD PCP - General Family Practice 11/12/17 Sandoval Boggs MD [address] [place] [address] Clinical Neurophysiology 11/03/18 Jordan Erickson MD [address] [address] 11/03/18 Sandoval Boggs MD 9 [place] [address] Assigned Neuroscience Provider 06/13/20 09/19/21 Erich Gillette MD [address] [place] [address] Assigned Sleep Provider 06/13/20 06/12/24 Essence Wise [facility] [address] [place] [address] Pharmacist Pharmacist 06/01/21 Manish Catherine PA-C [address] [place] [address] Assigned Neuroscience Provider 09/20/21 11/14/21 Heidy Harrell DO 9 [place] [address] Neurology 09/28/21 Heidy Harrell DO [address] [place] [address] Assigned Neuroscience Provider 04/17/22 Essence Wise [facility] [address] [place] [address] Assigned MTM Pharmacist 01/16/22 05/07/22 Heidy Harrell DO [address] [place] [address] Assigned Neuroscience Provider 11/15/21 04/16/22 Essence Wise [facility] [address] [place] [address] Assigned MTM Pharmacist 05/19/22 07/01/23 Essence Wise [facility] [address] [place] [address] Assigned MTM Pharmacist 10/14/23 Pablito Paulson MD [address] [place] [address] Assigned Pulmonology Provider 03/13/24 Phuc Cruz MD [address] [place] [address] Cardiovascular Disease 09/20/24 01/02/25 Phuc Cruz MD Assigned Heart and Vascular Provider 10/14/24 01/10/25 Claudia Loya APRN PET FEEDER [address] [place] [address] Assigned Heart and Vascular Provider 01/11/25 documented as of this encounter
--- OUTSIDE RECORDS SUMMARY | 2025-02-09 00:55 | XMS_ITS | Encounter Summary ---
Author Organization [facility] Address [address] [facility] [address] Care Team Providers Care Insurance Agent Name Role Phone Andrew Erickson MD Primary Care Provider [phone] Sandoval Boggs MD Unavailable [phone] Jordan Erickson MD Unavailable [phone] Essence Wise [facility] Unavailable +[phone] Heidy Harrell DO Unavailable +[phone] Heidy Harrell DO Unavailable +[phone] Essence Wise [facility] Unavailable +[phone] Pablito Paulson MD Unavailable Phuc Cruz MD Unavailable Unavailab Phuc Barraza MD Unavailable Unavailab Claudia Rodrigez APRN PONY CYLINDER PRESS OPERATOR Unavailable [phone] Encounter Details Date Type Department Care Team (Late st Contact Info) Description 09/26/2024 External Order Results [facility] [address] [place] [address] Outside, Provider Social History Tobacco Use Types [...] AM CDT Legal Sex Male 3:26 AM BREAD STACKER Gender Identity Male 04/09/2020 8:36 AM CDT Sexual Orientation Straight 04/09/2020 8: 36 AM CDT documented as of this encounter Plan of Treatment Upcoming Encounters Date Type Department Care Team (Late st Contact Info) Description 07/10/2025 12:00 PM BREAD STACKER Office Visit [facility] Neu[facility] [address] [address] Lary Schmitz, ENROLLMENT CLERK [facility] [address] [facility] [address] documented as of this encounter Procedures Procedure Name Priority Date/Time Associated Diagnosis Comments BASIC METABOLIC PANEL Routine 07/20/2024 11:16 PM BREAD STACKER documented in this encounter Results * (ABNORMAL) Basic metabolic panel (07/20/2024 11:16 PM BREAD STACKER) Sodium (External) 138 135 - 149 mmol/L [...] BLOOD SPECIMEN / Unknown 07/20/2024 11:16 PM BREAD STACKER Narrative NIKOLE PFT - 07/20/2024 11:16 PM BREAD STACKER Verified by Feliberto Rankin on 09/26/2024. us Provider Outside LAB - BLOOD ORDERABLES Edited R esult - Final NIKOLE PFT NON-INTERFACED (ONBASE SCANS) documented in this encounter Visit Diagnoses Not on filedocumented in this encounter Additional Health Concerns Assessment Noted Time PHQ-9 Depression Total Score: 14 021 7:02 AM CDT documented as of this encounter Care Teams Insurance Agent Relationship Specialty Start Date End Date Andrew Erickson MD PCP - General Family Practice 11/12/17 Sandoval Boggs MD [address] [place] [address] Clinical Neurophysiology 11/03/18 Jordan Erickson MD [address] [address] 11/03/18 Essence Wise [facility] [address] [place] [address] Pharmacist Pharmacist 06/01/21 Heidy Harrell DO [address] [place] [address] Neurology 09/28/21 Heidy Harrell DO [address] [place] [address] Assigned Neuroscience Provider 04/17/22 Essence Wise [facility] [address] [place] [address] Assigned MTM Pharmacist 10/14/23 Pablito Paulson MD 9 [place] [address] Assigned Pulmonology Provider 03/13/24 Phuc Cruz MD 9 [place] [address] Cardiovascular Disease 09/20/24 01/02/25 Phuc Cruz MD Assigned Heart and Vascular Provider 10/14/24 01/10/25 Claudia Loya APRN PONY CYLINDER PRESS OPERATOR [address] [place] [address] Assigned Heart and Vascular Provider 01/11/25 documented as of this encounter
--- OUTSIDE RECORDS SUMMARY | 2025-02-09 00:55 | XMS_ITS | Encounter Summary ---
Author Organization [facility] Address [address] [place] [address] Care Team Providers Care Senior Economist Name Role Phone Andrew Erickson MD Primary Care Provider [phone] Sandoval Boggs MD Unavailable [phone] Jordan Erickson MD Unavailable [phone] Sandoval Boggs MD Unavailable [phone] Erich Gillette MD Unavailable [phone] Essence Wise [facility] Unavailable +[phone] Manish Catherine PA-C Unavailable +[phone] Heidy Harrell DO Unavailable +[phone] Heidy Harrell DO Unavailable [phone] Essence Wise [facility] Unavailable +[phone] Heidy Harrell DO Unavailable +[phone] Essence Wise [facility] Unavailable +[phone] Essence Wise [facility] Unavailable [phone] aPblito Paulson MD Unavailable Phuc Cruz MD Unavailable Unavailab Phuc Barraza MD Unavailable Unavailab Claudia Rodrigez APRN, CNP Unavailable [phone] Encounter Details Date Type Department Care Team (Late st Contact Info) Description 05/01/2021 MyC Medical Advice [facility] [address] [address] Kelsi Quintero MA Social History [...] AM CDT Legal Sex Male 3:26 AM LITIGATION ASSISTANT Gender Identity Male 04/09/2020 8:36 AM [...] st Contact Info) Description 07/10/2025 12:00 PM LITIGATION ASSISTANT Office Visit [facility]rology Clinic [address] [address] Lary Schmitz, EVERETTE [address] [id number] [place] [address] documented as of this encounter Visit Diagnoses Not on filedocumented in this encounter Additional Health Concerns Assessment Noted Time PHQ-9 Depression Total Score: 12 020 6:56 AM LITIGATION ASSISTANT documented as of this encounter Care Teams Senior Economist Relationship Specialty Start Date End Date Andrew Erickson MD PCP - General Family Practice 11/12/17 Sandoval Boggs MD [address] [place] [address] Clinical Neurophysiology 11/03/18 Jordan Erickson MD [facility] [address] [place] [address] 11/03/18 Sandoval Boggs MD [address] [place] [address] Assigned Neuroscience Provider 06/13/20 09/19/21 Erich Gillette MD [address] [facility] [address] [address] Assigned Sleep Provider 06/13/20 06/12/24 Essence Wise [facility] [address] [place] [address] Pharmacist Pharmacist 06/01/21 Manish Catherine PA-C [address] [facility] [address] [address] Assigned Neuroscience Provider 09/20/21 11/14/21 Heidy Harrell DO [address] [place] [address] Neurology 09/28/21 Heidy Harrell DO [address] [place] [address] Assigned Neuroscience Provider 04/17/22 Essence Wise [facility] [address] [place] [address] Assigned MTM Pharmacist 01/16/22 05/07/22 Heidy Harrell DO [address] [place] [address] Assigned Neuroscience Provider 11/15/21 04/16/22 Essence Wise [facility] [address] [place] [address] Assigned MTM Pharmacist 05/19/22 07/01/23 Essence Wise [facility] [address] [place] [address] Assigned MTM Pharmacist 10/14/23 Pablito Paulson MD [address] [place] [address] Assigned Pulmonology Provider 03/13/24 Phuc Cruz MD [address] [place] [address] Cardiovascular Disease 09/20/24 01/02/25 Phuc Cruz MD Assigned Heart and Vascular Provider 10/14/24 01/10/25 Claudia Loya APRN STAVE PLANER TENDER [address] [place] [address] Assigned Heart and Vascular Provider 01/11/25 documented as of this encounter
--- OUTSIDE RECORDS SUMMARY | 2025-02-09 00:55 | XMS_ITS | Encounter Summary ---
Author Organization [place] Address [address] [place] [address] Care Team Providers Care Machine Stripper Name Role Phone Andrew Erickson MD Primary Care Provider [phone] Sandoval Boggs MD Unavailable +[phone] Jordan Erickson MD Unavailable [phone] Sandoval Boggs MD Unavailable +[phone] Erich Gillette MD Unavailable +[phone] Essence Wise [facility] Unavailable +[phone] Manish Catherine PA-C Unavailable +[phone] Heidy Harrell DO Unavailable +[phone] Heidy Harrell DO Unavailable +[phone] Essence Wise [facility] Unavailable +[phone] Heidy Harrell DO Unavailable +[phone] Essence Wise [facility] Unavailable +[phone] Essence Wise [facility] Unavailable [phone] Pablito Paulson MD Unavailable Phuc Cruz MD Unavailable Unavailab Phuc Barraza MD Unavailable Unavailab Claudia Rodrigez APRN, CNP Unavailable +[phone] Encounter Details Date Type Department Care Team (Late st Contact Info) Description 05/11/2021 MyC Medical Advice [facility] [place] [address] [place] [phone] Manish Catherine PA-C [address] [place] [address] Social History Tobacco Use Types Packs/Day Years Used Date Smoking Tobacco: Never Smokeless Tobacco: Never Alcohol Use Standard Drinks/Week Comments Yes 0 (1 standard drink = 0.6 oz pur e alcohol) occas PHQ-2 Answer Date Recorded PHQ-2 Score 2 08/28/2019 Sex and Gender Information Value Date Recorded Sex Assigned at Male 04/09/2020 8:36 AM CDT Legal Sex Male 3:26 AM TILE APPLICATOR Gender Identity Male 04/09/2020 8:36 AM CDT [...] st Contact Info) Description 07/10/2025 12:00 PM TILE APPLICATOR Office Visit [facility] Neurology Clinic [place] [address] [place] [phone] Lary Schmitz, MANAGER [employer] ELEMENTARY SUBSTITUTE TEACHER [address] [place] [address] [id number] [place] [address] documented as of this encounter Visit Diagnoses Not on filedocumented in this encounter Additional Health Concerns Assessment Noted Time PHQ-9 Depression Total Score: 12 020 6:56 AM TILE APPLICATOR documented as of this encounter Care Teams Machine Stripper Relationship Specialty Start Date End Date Andrew Erickson MD PCP - General Family Practice 11/12/17 Sandoval Boggs MD [address] [place] [address] Clinical Neurophysiology 11/03/18 Jordan Erickson MD [address] [address] 11/03/18 Sandoval Boggs MD [address] [place] [address] Assigned Neuroscience Provider 06/13/20 09/19/21 Erich Gillette MD [address] [address] Assigned Sleep Provider 06/13/20 06/12/24 Essence Wise [facility] [address] [place] [address] Pharmacist Pharmacist 06/01/21 Manish Catherine PA-C [address] [address] Assigned Neuroscience Provider 09/20/21 11/14/21 Heidy Harrell DO [address] [place] [address] Neurology 09/28/21 Heidy Harrell DO [address] [place] [address] Assigned Neuroscience Provider 04/17/22 Essence Wise [facility] [address] [place] [address] Assigned MTM Pharmacist 01/16/22 05/07/22 Heidy Harrell DO [address] [place] [address] Assigned Neuroscience Provider 11/15/21 04/16/22 Essence Wise [facility] [address] [place] [address] Assigned MTM Pharmacist 05/19/22 07/01/23 Essence Wise [facility] [address] [place] [address] Assigned MTM Pharmacist 10/14/23 Pablito Paulson MD [address] [place] [address] Assigned Pulmonology Provider 03/13/24 Phuc Cruz MD [address] [place] [address] Cardiovascular Disease 09/20/24 01/02/25 Phuc Cruz MD Assigned Heart and Vascular Provider 10/14/24 01/10/25 Claudia Loya APRN ELEMENTARY SUBSTITUTE TEACHER [address] [place] [address] Assigned Heart and Vascular Provider 01/11/25 documented as of this encounter
--- OUTSIDE RECORDS SUMMARY | 2025-02-09 00:55 | XMS_ITS | Encounter Summary ---
Author Organization [facility] Address [address] [place] [address] Care Team Providers Care Vehicle Safety Inspector Name Role Phone Andrew Erickson MD Primary Care Provider [phone] Sandoval Boggs MD Unavailable +[phone] Jordan Erickson MD Unavailable [phone] Sandoval Boggs MD Unavailable +[phone] Erich Gillette MD Unavailable +[phone] Essence Wise [facility] Unavailable +[phone] Manish Catherine PA-C Unavailable +[phone] Heidy Harrell DO Unavailable +[phone] Heidy Harrell DO Unavailable +[phone] Essence Wise [facility] Unavailable +[phone] Heidy Harrell DO Unavailable +[phone] Essence Wise [facility] Unavailable +[phone] Essence Wise [facility] Unavailable [phone] Pablito Paulson MD Unavailable Phuc Cruz MD Unavailable Unavailab Phuc Barraza MD Unavailable Unavailab Claudia Rodrigez APRN, CNP Unavailable [phone] Encounter Details Date Type Department Care Team (Late st Contact Info) Description 01/26/2021 MyC Medical Advice [facility] [address] [address] Mark Soliz, MA Social History [...] AM CDT Legal Sex Male 3:26 AM HEADMASTER/MISTRESS Gender Identity Male 04/09/2020 8:36 AM CDT Sexual Orientation Straight 04/09/2020 8: 36 AM CDT documented as of this encounter Plan of Treatment Upcoming Encounters Date Type Department Care Team (Late st Contact Info) Description 07/10/2025 12:00 PM HEADMASTER/MISTRESS Office Visit [facility] Neurology Clinic [address] [address] Lary Schmitz H, PUBLIC ADMINISTRATION TEACHER TRAUMA REGISTRAR [address] [facility] [id number] [place] [address] documented as of this encounter Visit Diagnoses Not on filedocumented in this encounter Additional Health Concerns Assessment Noted Time PHQ-9 Depression Total Score: 12 020 6:56 AM HEADMASTER/MISTRESS documented as of this encounter Care Teams Vehicle Safety Inspector Relationship Specialty Start Date End Date Andrew Erickson MD PCP - General Family Practice 11/12/17 Sandoavl Boggs MD [address] [place] [address] Clinical Neurophysiology 11/03/18 Jordan Erickson MD [address] [address] 11/03/18 Sandoval Boggs MD 9 [place] [address] Assigned Neuroscience Provider 06/13/20 09/19/21 Erich Gillette MD [address] [place] [address] Assigned Sleep Provider 06/13/20 06/12/24 Essence Wise [facility] [address] [place] [address] Pharmacist Pharmacist 06/01/21 Manish Catherine PA-C [address] [place] [address] Assigned Neuroscience Provider 09/20/21 11/14/21 Heidy Harrell DO [address] [place] [address] Neurology 09/28/21 Heidy Harrell DO [address] [place] [address] Assigned Neuroscience Provider 04/17/22 Essence Wise [facility] [address] [place] [address] Assigned MTM Pharmacist 01/16/22 05/07/22 Heidy Harrell DO [address] [place] [address] Assigned Neuroscience Provider 11/15/21 04/16/22 Essence Wise [facility] [address] [place] [address] Assigned MTM Pharmacist 05/19/22 07/01/23 Essence Wise [facility] [address] [place] [address] Assigned MTM Pharmacist 10/14/23 Pablito Paulson MD [address] [place] [address] Assigned Pulmonology Provider 03/13/24 Phuc Cruz MD [address] [place] [address] Cardiovascular Disease 09/20/24 01/02/25 Phuc Cruz MD Assigned Heart and Vascular Provider 10/14/24 01/10/25 Claudia Loya APRN TRAUMA REGISTRAR [address] [place] [address] Assigned Heart and Vascular Provider 01/11/25 documented as of this encounter
--- OUTSIDE RECORDS SUMMARY | 2025-02-09 00:55 | XMS_ITS | Encounter Summary ---
Author Organization [place] Address [address] [place] [address] Care Team Providers Care Outbound Telemarketing Representative Name Role Phone Andrew Erickson MD Primary Care Provider [phone] Sandoval Boggs MD Unavailable [phone] Jordan Erickson MD Unavailable [phone] Sandoval Boggs MD Unavailable +[phone] Erich Gillette MD Unavailable [phone] Essence Wise [facility] Unavailable +[phone] Manish Catherine PA-C Unavailable +[phone] Heidy Harrell DO Unavailable +[phone] Heidy Harrell DO Unavailable +[phone] Essence Wise [facility] Unavailable +[phone] Heidy Harrell DO Unavailable +[phone] Essence Wise [facility] Unavailable +[phone] Essence Wise [facility] Unavailable [phone] Pablito Paulson MD Unavailable Phuc Cruz MD Unavailable Unavailab Phuc Barraza MD Unavailable Unavailab Claudia Rodrigez APRN, CNP Unavailable [phone] Encounter Details Date Type Department Care Team (Late st Contact Info) Description 06/01/2021 MyC Medical Advice [facility] Neurology Clinic [address] [facility] 3rd [place] [phone] Essence Wise, [facility] [address] [place] [address] Social History Tobacco Use Types Packs/Day Years [...] AM CDT Legal Sex Male 3:26 AM RECTIFYING ATTENDANT Gender Identity Male 04/09/2020 8:36 AM CDT Sexual Orientation Straight 04/09/2020 8: 36 AM CDT documented as of this encounter Plan of Treatment Upcoming Encounters Date Type Department Care Team (Late st Contact Info) Description 07/10/2025 12:00 PM RECTIFYING ATTENDANT Office Visit [facility] Neurology [address] [address] Lary Schmitz, LAYBOY TENDER [facility] [address] [facility] [id number] [place] [address] documented as of this encounter Visit Diagnoses Not on filedocumented in this encounter Additional Health Concerns Assessment Noted Time PHQ-9 Depression Total Score: 14 021 7:02 AM CDT documented as of this encounter Care Teams Outbound Telemarketing Representative Relationship Specialty Start Date End Date Andrew Erickson MD PCP - General Family Practice 11/12/17 Sandoval Boggs MD [address] [place] [address] Clinical Neurophysiology 11/03/18 Jordan Erickson MD [address] [address] 11/03/18 Sandoval Boggs MD [address] [place] [address] Assigned Neuroscience Provider 06/13/20 09/19/21 Erich Gillette MD [address] [facility] S [facility] [address] [place] [address] Assigned Sleep Provider 06/13/20 06/12/24 Essence Wise, [facility] [address] [place] [address] Pharmacist Pharmacist 06/01/21 Manish Catherine PA-C [address] [facility] [address] [address] Assigned Neuroscience Provider 09/20/21 11/14/21 Heidy Harrell DO [address] [place] [address] Neurology 09/28/21 Heidy Harrell DO [address] [place] [address] Assigned Neuroscience Provider 04/17/22 Essence Wise [facility] [address] [place] [address] Assigned MTM Pharmacist 01/16/22 05/07/22 Heidy Harrell DO [address] [place] [address] Assigned Neuroscience Provider 11/15/21 04/16/22 Essence Wise [facility] [address] [place] [address] Assigned MTM Pharmacist 05/19/22 07/01/23 Essence Wise [facility] [address] [place] [address] Assigned MTM Pharmacist 10/14/23 Pablito Paulson MD [address] [place] [address] Assigned Pulmonology Provider 03/13/24 Phuc Cruz MD [address] [place] [address] Cardiovascular Disease 09/20/24 01/02/25 Phuc Cruz MD Assigned Heart and Vascular Provider 10/14/24 01/10/25 Claudia Loya APRN CHECK WRITER SALESPERSON [address] [place] [id number] Assigned Heart and Vascular Provider 01/11/25 documented as of this encounter
--- OUTSIDE RECORDS SUMMARY | 2025-02-09 00:55 | XMS_ITS | Encounter Summary ---
Author Organization [place] Address [address] [facility] [place] [address] Care Team Providers Care Merit System Director Name Role Phone Andrew Erickson MD Primary Care Provider [phone] Sandoval Boggs MD Unavailable [phone] Jordan Erickson MD Unavailable [phone] Erich Gillette MD Unavailable [phone] Essence Wise [facility] Unavailable [phone] Heidy Harrell DO Unavailable [phone] Heidy Harrell DO Unavailable [phone] Essence Wise [facility] Unavailable [phone] Pablito Paulson MD Unavailable Phuc Cruz MD Unavailable Unavailab Phuc Barraza MD Unavailable Unavailab Claudia Rodrigez APRN BANK ANALYST Unavailable [phone] Encounter Details Date Type Department Care Team (Late st Contact Info) Description 02/14/2024 [facility] [address] [place] [address] Rosa Reina RN Social History [...] AM CDT Legal Sex Male 3:26 AM WATER RESOURCES ENGINEER Gender Identity Male 04/09/2020 8:36 AM CDT Sexual Orientation Straight 04/09/2020 8: 36 AM CDT documented as of this encounter Plan of Treatment Upcoming Encounters Date Type Department Care Team (Late st Contact Info) Description 07/10/2025 12:00 PM WATER RESOURCES ENGINEER Office Visit [facility] Neurology [address] [address] Lary Schmitz, CORRECTIONAL OFFICER SERGEANT BANK ANALYST [id number] [place], [place] [address] documented as of this encounter Visit Diagnoses Not on filedocumented in this encounter Additional Health Concerns Assessment Noted Time PHQ-9 Depression Total Score: 14 021 7:02 AM CDT documented as of this encounter Care Teams Merit System Director Relationship Specialty Start Date End Date Andrew Erickson MD PCP - General Family Practice 11/12/17 Sandoval Boggs MD [address] [place] [address] Clinical Neurophysiology 11/03/18 Jordan Erickson MD [facility] [address] [place] [address] 11/03/18 Erich Gillette MD [address] [address] Assigned Sleep Provider 06/13/20 06/12/24 Essence Wise [facility] [address] [place] [address] Pharmacist Pharmacist 06/01/21 Heidy Harrell DO [address] [place] [address] Neurology 09/28/21 Heidy Harrell DO [address] [place] [address] 90321 Assigned Neuroscience Provider 04/17/22 Essence Wise [facility] [address] [place] [address]907 Assigned MTM Pharmacist 10/14/23 Pablito Paulson MD [address] [place] [address] Assigned Pulmonology Provider 03/13/24 Phuc Cruz MD [address] [place] [address] Cardiovascular Disease 09/20/24 01/02/25 Phuc Cruz MD Assigned Heart and Vascular Provider 10/14/24 01/10/25 Claudia Loya APRN BANK ANALYST [address] [address] Assigned Heart and Vascular Provider 01/11/25 documented as of this encounter
--- OUTSIDE RECORDS SUMMARY | 2025-02-09 00:55 | XMS_ITS | Encounter Summary ---
Author Organization [place] Address [address] [facility] [place] [address] Care Team Providers Care Lion Trainer Name Role Phone Andrew Erickson MD Primary Care Provider [phone] Sandoval Boggs MD Unavailable [phone] Jordan Erickson MD Unavailable [phone] Essence Wise [facility] Unavailable [phone] Heidy Harrell DO Unavailable [phone] Heidy Harrell DO Unavailable [phone] Essence Wise [facility] Unavailable [phone] Pablito Paulson MD Unavailable Phuc Cruz MD Unavailable Unavailab Phuc Barraza MD Unavailable Unavailab Claudia Rodrigez APRN RELAY WORKER Unavailable [phone] Encounter Details Date Type Department Care Team (Late st Contact Info) Description 07/23/2024 External Order Results [facility] [address] [place] [address] Outside, Provider Social History Tobacco Use Types [...] AM CDT Legal Sex Male 3:26 AM HOTEL SERVICE SUPERVISOR Gender Identity Male 04/09/2020 8:36 AM CDT Sexual Orientation Straight 04/09/2020 8: 36 AM CDT documented as of this encounter Plan of Treatment Upcoming Encounters Date Type Department Care Team (Late st Contact Info) Description 07/10/2025 12:00 PM HOTEL SERVICE SUPERVISOR Office Visit [facility] Neurology Clinic [address] [address] Lary Schmitz, SENIOR POLICY ANALYST [facility] [address] [facility] [id number], [place] [address] documented as of this encounter Procedures Procedure Name Priority Date/Time Associated Diagnosis Comments IONIZED CALCIUM Routine 07/23/2024 12:16 PM HOTEL SERVICE SUPERVISOR BASIC METABOLIC PANEL Routine 07/23/2024 12:16 PM HOTEL SERVICE SUPERVISOR WBC AND DIFFERENTIAL Routine 07/20/2024 11:16 PM HOTEL SERVICE SUPERVISOR CBC WITH PLATELETS Routine 07/20/2024 11 :16 PM HOTEL SERVICE SUPERVISOR ROUTINE UA WITH MICROSCOPIC Routine 07/20/2024 2:00 AM HOTEL SERVICE SUPERVISOR TSH Routine 06/26/2024 10:28 AM HOTEL SERVICE SUPERVISOR TESTOSTERONE TOTAL Routine 06/26/2024 10 :28 AM HOTEL SERVICE SUPERVISOR LIPID PROFILE Routine 06/26/2024 10:28 AM HOTEL SERVICE SUPERVISOR CREATININE Routine 06/26/2024 10:28 AM HOTEL SERVICE SUPERVISOR documented in this encounter Results * Ionized Calcium (07/23/2024 12:16 PM HOTEL SERVICE SUPERVISOR) Calcium Ionized (External) 1.13 1.11 - 1.33 mmol/L NON-INTERFACED (ONBASE SCANS) Blood BLOOD SPECIMEN / Unknown 07/23/2024 12:16 PM HOTEL SERVICE SUPERVISOR Narrative BREEZE PFT - 09/26/2024 10:11 AM HOTEL SERVICE SUPERVISOR Verified by Nieves Arredondo on 09/26/2024. Provider Outside LAB - BLOOD ORDERABLES Edited R Logan - ImmuRx NIKOLE PFT NON-INTERFACED (ONBASE SCANS) * (ABNORMAL) Basic metabolic panel (07/23/2024 12:16 PM HOTEL SERVICE SUPERVISOR) Sodium (External) 135(L) 138 - 146 mmol/L [...] BLOOD SPECIMEN / Unknown 07/23/2024 12:16 PM HOTEL SERVICE SUPERVISOR Narrative SERENITYEZE PFT - 09/26/2024 10:11 AM HOTEL SERVICE SUPERVISOR Verified by Nieves Arredondo on 09/26/2024. us Provider Outside LAB - BLOOD ORDERABLES Edited Libra Logan - Immu[facility] NIKOLE PFT NON-INTERFACED (ONBASE SCANS) * (ABNORMAL) CBC with platelets (07/20/2024 11:16 PM HOTEL SERVICE SUPERVISOR) WBC Count (External) 7.88 4.50 - 11.00 [...] BLOOD SPECIMEN / Unknown 07/20/2024 11:16 PM HOTEL SERVICE SUPERVISOR Narrative NIKOLE RAPHAEL - 09/26/2024 10:26 AM HOTEL SERVICE SUPERVISOR Verified by Nieves Arredondo on 09/26/2024. us Provider Outside LAB - BLOOD ORDERABLES Edited R esult - Final NIKOLE LIM NON-INTERFACED (ONBASE SCANS) * (ABNORMAL) WBC and differential (07/20/2024 11:16 PM HOTEL SERVICE SUPERVISOR) % Neutrophils (External) 68.7 42.0 - 72.0 [...] BLOOD SPECIMEN / Unknown 07/20/2024 11:16 PM HOTEL SERVICE SUPERVISOR Narrative NIKOLE PFDouglas - 09/26/2024 10:26 AM HOTEL SERVICE SUPERVISOR Verified by Nieves Arredondo on 09/26/2024. us Provider Outside LAB - BLOOD ORDERABLES Edited R esult - Final NIKOEL PFDouglas NON-INTERFACED (ONBASE SCANS) * UA with Microscopic (07/20/2024 2:00 AM HOTEL SERVICE SUPERVISOR) Color Urine (External) Yellow Yellow NON-INTERFAC ED (ONBASE SCANS) Appearance Urine (External) Clear Clear NON-INTERFAC ED (ONBASE SCANS) Glucose Urine (External) Negative Negative NON-INTERFAC ED (ONBASE SCANS) Bilirubin Urine (External) Negative Negative NON-INTERFAC ED (ONBASE SCANS) Specific [place] Urine (External) 1.010 1.000 - 1.030 NON-INTERFAC [...] ED (ONBASE SCANS) Urine 07/20/2024 2:00 AM HOTEL SERVICE SUPERVISOR Narrative BREEZE PFT - 07/20/2024 2:00 AM HOTEL SERVICE SUPERVISOR Verified by Nieves Arredondo on 09/26/2024. Verified by Feliberto Rankin on 09/26/2024. Provider Outside LAB - URINE ORDERABLES Edited [employer] Performing Organization Address [facility] Co de Phone Number SERENITYEZE PFT NON-INTERFACED (ONBASE SCANS) * TSH (06/26/2024 10:28 AM HOTEL SERVICE SUPERVISOR) TSH (External) 2.720 0.270 - 4.200 uIU/mL NON-INTERFACED (ONBASE SCANS) Blood BLOOD SPECIMEN / Unknown 06/26/2024 10:28 AM HOTEL SERVICE SUPERVISOR Narrative SERENITYEZE PFT - 09/26/2024 10:26 AM HOTEL SERVICE SUPERVISOR Verified by Nieves Arredondo on 09/26/2024. Provider Outside LAB - BLOOD ORDERABLES Edited [employer] Performing Organization Address City/[facility]/ZIP Co de Phone Number SERENITYEZE PFT NON-INTERFACED (ONBASE SCANS) * Lipid Profile (06/26/2024 10:28 AM HOTEL SERVICE SUPERVISOR) Cholesterol (External) 182 90 - 199 mg/dL NON-INTERFACED (ONBASE SCANS) LDL Cholesterol Calculated (External) 73 <100 mg/dL NON-INTERFACED (ONBASE SCANS) HDL Cholesterol (External) 93 >=40 mg/dL NON-INTERFACED (ONBASE SCANS) Blood BLOOD SPECIMEN / Unknown 06/26/2024 10:28 AM HOTEL SERVICE SUPERVISOR Narrative BREEZE PFT - 09/26/2024 10:26 AM HOTEL SERVICE SUPERVISOR Verified by Nieves Arredondo on 09/26/2024. Result [facility] Provider Outside LAB - BLOOD ORDERABLES Edited R [facility] [place] Performing Organization Address [facility] Co de Phone Number BREEZE PFT NON-INTERFACED (ONBASE SCANS) * (ABNORMAL) Creatinine (06/26/2024 10:28 AM HOTEL SERVICE SUPERVISOR) Creatinine (External) 1.7(H) 0.5 - 1.5 mg/dl NON-INTERFACED (ONBASE SCANS) Blood BLOOD SPECIMEN / Unknown 06/26/2024 10:28 AM HOTEL SERVICE SUPERVISOR Narrative BREEZE PFT - 09/26/2024 10:26 AM HOTEL SERVICE SUPERVISOR Verified by Nieves Arredondo on 09/26/2024. Result [facility] Provider Outside LAB - BLOOD ORDERABLES Edited [facility] Performing Organization Address [facility] de Phone Number BREEZE PFT NON-INTERFACED (ONBASE SCANS) * (ABNORMAL) Testosterone total (06/26/2024 10:28 AM HOTEL SERVICE SUPERVISOR) Testosterone Total (External) 253(L) 300 - 720 ng/dL NON-INTERFACE D (ONBASE SCANS) Blood BLOOD SPECIMEN / Unknown 06/26/2024 10:28 AM HOTEL SERVICE SUPERVISOR Narrative BREEZE PFT - 09/26/2024 10:26 AM HOTEL SERVICE SUPERVISOR Verified by Nieves Arrdeondo on 09/26/2024. Provider Outside LAB - BLOOD ORDERABLES Edited [facility] Performing Organization Address [facility] Co de Phone Number BREEZE PFT NON-INTERFACED (ONBASE SCANS) documented in this encounter Visit Diagnoses Not on filedocumented in this encounter Additional Health Concerns Assessment Noted Time PHQ-9 Depression Total Score: 14 021 7:02 AM CDT documented as of this encounter Care Teams Lion Trainer Relationship Specialty Start Date End Date Andrew Erickson MD PCP - General Family Practice 11/12/17 Sandoval Boggs MD [address] [place] [address] Clinical Neurophysiology 11/03/18 Jordan Erickson MD [address] [address] 11/03/18 Essence Wise [facility] [address] [place] [address] Pharmacist Pharmacist 06/01/21 Heidy Harrell DO [address] [place] [address] Neurology 09/28/21 Heidy Harrell DO [address] [place] [address] Assigned Neuroscience Provider 04/17/22 Essence Wies [facility] [address] [place] [address] Assigned MTM Pharmacist 10/14/23 Pablito Paulson MD [address] [place] [address] Assigned Pulmonology Provider 03/13/24 Phuc Cruz MD [address] [place] [address] Cardiovascular Disease 09/20/24 01/02/25 Phuc Cruz MD Assigned Heart and Vascular Provider 10/14/24 01/10/25 Claudia Loya APRN [facility] [address] [id number] Assigned Heart and Vascular Provider 01/11/25 documented as of this encounter
--- OUTSIDE RECORDS SUMMARY | 2025-02-09 00:55 | XMS_ITS | Encounter Summary ---
Author Organization [place] Address [address] [facility] [place] [address] Care Team Providers Care Professional Athletes Coach Name Role Phone Andrew Erickson MD Primary Care Provider [phone] Sandoval Boggs MD Unavailable [phone] Jordan Erickson MD Unavailable [phone] Essence Wise [facility] Unavailable [phone] Heidy Harrell DO Unavailable [phone] Heidy Harrell DO Unavailable [phone] Essence Wise [facility] Unavailable [phone] Pablito Paulson MD Unavailable Phuc Cruz MD Unavailable Unavailab Phuc Barraza MD Unavailable Unavailab Claudia Rodrigez APRN FINANCIAL ECONOMIST Unavailable [phone] Encounter Details Date Type Department Care Team (Late st Contact Info) Description 07/20/2024 External Order Results [facility] [address] [place] [address] Outside, Provider Social History Tobacco Use Types [...] AM CDT Legal Sex Male 3:26 AM STORY WRITER Gender Identity Male 04/09/2020 8:36 AM CDT Sexual Orientation Straight 04/09/2020 8: 36 AM CDT documented as of this encounter Plan of Treatment Upcoming Encounters Date Type Department Care Team (Late st Contact Info) Description 07/10/2025 12:00 PM STORY WRITER Office Visit [facility] Neurology Clinic [address] [address] Lary Schmitz, WINCH TRUCK OPERATOR [facility] [address] [facility] [id number], [place] [address] documented as of this encounter Procedures Procedure Name Priority Date/Time Associated Diagnosis Comments EXTERNAL LAB RESULTS Routine 07/20/2024 11:16 PM STORY WRITER HEPATIC FUNCTION PANEL Routine 07/20/2024 11:16 PM STORY WRITER CRP INFLAMMATION Routine 07/20/2024 11:1 6 PM STORY WRITER CREATININE Routine 07/20/2024 11:16 PM STORY WRITER CK TOTAL Routine 07/20/2024 11:16 PM STORY WRITER CALCIUM Routine 07/20/2024 11:16 PM STORY WRITER GLUCOSE Routine 07/20/2024 11:16 PM STORY WRITER EXTERNAL LAB RESULTS Routine 07/20/2024 2:00 AM STORY WRITER documented in this encounter Results * (ABNORMAL) Creatinine (07/20/2024 11:16 PM STORY WRITER) Creatinine (External) 2.1(H) 0.5 - 1.5 mg/dL NON-INTERFACED (ONBASE SCANS) Blood BLOOD SPECIMEN / Unknown 07/20/2024 11:16 PM STORY WRITER Narrative BREEZE PFT - 09/26/2024 10:56 AM STORY WRITER Verified by Harris Mark on 09/26/2024. Provider Outside LAB - BLOOD ORDERABLES Edited R [facility] Performing Organization Address City/[facility]/ZIP Co de Phone Number BREEZE PFT NON-INTERFACED (ONBASE SCANS) * Calcium (07/20/2024 11:16 PM STORY WRITER) Calcium (External) 9.2 0.4 - 10.6 mg/dl NON-INTERFACED (ONBASE SCANS) Blood BLOOD SPECIMEN / Unknown 07/20/2024 11:16 PM STORY WRITER Narrative BREEZE PFT - 09/26/2024 10:56 AM STORY WRITER Verified by Harris Mark on 09/26/2024. Provider Outside LAB - BLOOD ORDERABLES Edited [employer] Performing Organization Address [facility]/ZIP Co de Phone Number BREEZE PFT NON-INTERFACED (ONBASE SCANS) * Glucose (07/20/2024 11:16 PM STORY WRITER) Glucose (External) 96 60 - 115 mg/dL NON-INTERFACED (ONBASE SCANS) Blood BLOOD SPECIMEN / Unknown 07/20/2024 11:16 PM STORY WRITER Narrative BREEZE PFT - 09/26/2024 10:56 AM STORY WRITER Verified by Harris Mark on 09/26/2024. Provider Outside LAB - BLOOD ORDERABLES Edited R [employer] BREEZE PFT NON-INTERFACED (ONBASE SCANS) * (ABNORMAL) Hepatic function panel (07/20/2024 11:16 PM STORY WRITER) Protein Total (External) 7.1 6.0 - 8.3 [...] BLOOD SPECIMEN / Unknown 07/20/2024 11:16 PM STORY WRITER Narrative BREEZE PFT - 09/26/2024 10:56 AM STORY WRITER Verified by Harris Mark on 09/26/2024. Provider Outside LAB - BLOOD ORDERABLES Edited [employer] Performing Organization Address City/[facility]/ZIP Co de Phone Number BREEZE PFT NON-INTERFACED (ONBASE SCANS) * CK total (07/20/2024 11:16 PM STORY WRITER) CK (External) 153 54 - 186 U/L NON-INTERFACED (ONBASE SCANS) Blood BLOOD SPECIMEN / Unknown 07/20/2024 11:16 PM STORY WRITER Narrative BREEZE PFT - 09/26/2024 10:56 AM STORY WRITER Verified by Harris Mark on 09/26/2024. Provider Outside LAB - BLOOD ORDERABLES Edited R [employer] BREEZE PFT NON-INTERFACED (ONBASE SCANS) * (ABNORMAL) CRP inflammation (07/20/2024 11:16 PM STORY WRITER) CRP Inflammation (External) 3.2(H) 0.5 - 1.0 mg/dL NON-INTERFACE D (ONBASE SCANS) Blood BLOOD SPECIMEN / Unknown 07/20/2024 11:16 PM STORY WRITER Narrative BREEZE PFT - 09/26/2024 10:56 AM STORY WRITER Verified by Harris Mark on 09/26/2024. us Provider Outside LAB - BLOOD ORDERABLES Edited R esult - Final Performing Organization Address [facility]/ZIP Co de Phone Number BREEZE PFT NON-INTERFACED (ONBASE SCANS) * (ABNORMAL) External Lab Results (07/20/2024 11:16 PM STORY WRITER) Scan Lab Results (External) See scanned multiple lab report(A) NON-INTERFACE D (ONBASE SCANS) Comment: Salicylate Acetamin Ethanol 07/20/2024 11:1 6 PM STORY WRITER Narrative BREEZE PFT - 09/26/2024 10:56 AM STORY WRITER Verified by Harris Mark on 09/26/2024. us Provider Outside LABORATORY Edited Result - Final Performing Organization Address [facility] Co de Phone Number BREEZE PFT NON-INTERFACED (ONBASE SCANS) * External Lab Results (07/20/2024 2:00 AM STORY WRITER) Scan Lab Results (External) See Scanned Report NON-INTERFACE D (ONBASE SCANS) Comment:Urine Drug Screen 07/20/2024 2:00 AM STORY WRITER Narrative BREEZE PFT - 09/26/2024 10:56 AM STORY WRITER Verified by Harris Mark on 09/26/2024. us Provider Outside LABORATORY Edited Result - Final BREEZE PFT NON-INTERFACED (ONBASE SCANS) documented in this encounter Visit Diagnoses Not on filedocumented in this encounter Additional Health Concerns Assessment Noted Time PHQ-9 Depression Total Score: 14 021 7:02 AM CDT documented as of this encounter Care Teams Professional Athletes Coach Relationship Specialty Start Date End Date Andrew Erickson MD PCP - General Family Practice 11/12/17 Sandoval Boggs MD [address] [place] [address] Clinical Neurophysiology 11/03/18 Jordan Erickson MD [address] [address] 11/03/18 Essence Wise, [facility] [address] [place] [address] Pharmacist Pharmacist 06/01/21 Heidy Harrell DO [address] [place] [address] Neurology 09/28/21 Heidy Harrell DO [address] [place] [address] 713[address] Assigned Neuroscience Provider 04/17/22 Essence Wise [facility] [address] [place] [address] Assigned MTM Pharmacist 10/14/23 Pablito Paulson MD [address] [place] [address] Assigned Pulmonology Provider 03/13/24 Phuc Cruz MD [address] [place] [address] Cardiovascular Disease 09/20/24 01/02/25 Phuc Cruz MD Assigned Heart and Vascular Provider 10/14/24 01/10/25 Claudia Loya APRN FINANCIAL ECONOMIST [address] [id number] Assigned Heart and Vascular Provider 01/11/25 documented as of this encounter
--- OUTSIDE RECORDS SUMMARY | 2025-02-09 00:56 | XMS_ITS | Encounter Summary ---
Author Organization [place] Address [address] [place] [address] Care Team Providers Care Completion Supervisor Name Role Phone Andrew Erickson MD Primary Care Provider [phone] Sandoval Boggs MD Unavailable [phone] Jordan Erickson MD Unavailable [phone] Erich Gillette MD Unavailable [phone] Essence Wise [facility] Unavailable Heidy Harrell DO Unavailable [phone] Heidy Harrell DO Unavailable [phone] Essence Wise [facility] Unavailable [phone] Essence Wise [facility] Unavailable [phone] Pablito Paulson MD Unavailable Phuc Cruz MD Unavailable Unavailab Phuc Barraza MD Unavailable Unavailab Claudia Rodrigez APRN UPHOLSTERY MECHANIC Unavailable [phone] Encounter Details Date Type Department Care Team [...] AM CDT Legal Sex Male 3:26 AM PAINTER SIGN MAINTENANCE Gender Identity Male 04/09/2020 8:36 AM CDT [...] st Contact Info) Description 07/10/2025 12:00 PM PAINTER SIGN MAINTENANCE Office Visit [facility] Neurology [address] [address] Lary Schmitz, FARM ADVISER UPHOLSTERY MECHANIC [address] [facility] [id number] [place], [place] [id number] documented as of this encounter Visit Diagnoses Not on filedocumented in this encounter Additional Health Concerns Assessment Noted Time PHQ-9 Depression Total Score: 14 021 7:02 AM CDT documented as of this encounter Care Teams Completion Supervisor Relationship Specialty Start Date End Date Andrew Erickson MD PCP - General Family Practice 11/12/17 Sandoval Boggs MD [address] [place] [address] Clinical Neurophysiology 11/03/18 Jordan Erickson MD [facility] [address] [place] [address] 11/03/18 Erich Gillette MD [address] [address] Assigned Sleep Provider 06/13/20 06/12/24 Essence Wise [facility] [address] [place] [address] Pharmacist Pharmacist 06/01/21 Heidy Harrell DO [address] [place] [address] Neurology 09/28/21 Heidy Harrell DO [address] [place] [address] Assigned Neuroscience Provider 04/17/22 Essence Wise [facility] [address] [place] [address] Assigned MTM Pharmacist 05/19/22 07/01/23 Essence Wise [facility] [address] [place] [address] Assigned MTM Pharmacist 10/14/23 Pablito Paulson MD [address] [place] [address] Assigned Pulmonology Provider 03/13/24 Phuc Cruz MD [address] [place] [address] Cardiovascular Disease 09/20/24 01/02/25 Phuc Cruz MD Assigned Heart and Vascular Provider 10/14/24 01/10/25 Claudia Loya APRN UPHOLSTERY MECHANIC [address] [place] [address] Assigned Heart and Vascular Provider 01/11/25 documented as of this encounter
--- OUTSIDE RECORDS SUMMARY | 2025-02-09 00:56 | XMS_ITS | CCD ---
Author Name Interface, [id number] l[place] Address [address] [facility] [address] [place] [address] [facility] Oncology Address [facility] [address] [place] [address] Care Team Providers Care Trim And Burr Operator Name Role Phone Shruti Page Unavailable Unavailable Oscar Nguyen Unavailable Unavailable Isaac Ray Unavailable Unavailab le Allergies and Adverse Reactions Care Plan Reason for Visit Encounters Immunizations Diagnostic Results Medications Problems Procedures Social History Vital Signs
--- OUTSIDE RECORDS SUMMARY | 2025-02-09 00:56 | XMS_ITS | Encounter Summary ---
Author Organization [facility] Address [address] [place] [address] Care Team Providers Care Portrait Artist Name Role Phone Andrew Erickson MD Primary Care Provider [phone] Sandoval Boggs MD Unavailable [phone] Jordan Erickson MD Unavailable [phone] Cheryl Mullen NEWSPAPER PRESS OPERATOR APPRENTICE LEAD SHAREPOINT DEVELOPER Unavailable + Libertad Bonilla NEWSPAPER PRESS OPERATOR APPRENTICE LEAD SHAREPOINT DEVELOPER Unavailable +[phone] Sandoval Boggs MD Unavailable [phone] Erich Gillette MD Unavailable +[phone] Libertad Bonilla APRN LEAD SHAREPOINT DEVELOPER Unavailable +[phone] Cheryl Mullen NEWSPAPER PRESS OPERATOR APPRENTICE LEAD SHAREPOINT DEVELOPER Unavailable + Cheryl Mullen NEWSPAPER PRESS OPERATOR APPRENTICE LEAD SHAREPOINT DEVELOPER Unavailable + Libertad Bonilla NEWSPAPER PRESS OPERATOR APPRENTICE LEAD SHAREPOINT DEVELOPER Unavailable +[phone] Essence Wise [facility] Unavailable + [phone] Manish Catherine PA-C Unavailable + [phone] Heidy Harrell DO Unavailable +[phone] Heidy Harrell DO Unavailable +[phone] Essence Wise [facility] Unavailable + [phone] Heidy Harrell DO Unavailable +[phone] Essence Wise [facility] Unavailable [phone] Essence Wise [facility] Unavailable [phone] Pablito Paulson MD Unavailable Phuc Cruz MD Unavailable Unavailab Phuc Barraza MD Unavailable Unavailab Claudia Rodrigez APRN LEAD SHAREPOINT DEVELOPER Unavailable Encounter Details Date Type Department Care Team (Late st Contact Info) Description 02/07/2020 Orders Only [facility] [address] [place] [address] Skip Carias MD [facility] [address] [place] [address] Pre-operative laboratory examination (Primary Dx) Social [...] AM CDT Legal Sex Male 3:26 AM STEAM BONE PRESS TENDER Gender Identity Male 04/09/2020 8:36 AM [...] st Contact Info) Description 07/10/2025 12:00 PM STEAM BONE PRESS TENDER Office Visit [facility] Neurology [facility] [address] [address] Lary Schmitz APRN LEAD SHAREPOINT DEVELOPER [address] [id number] [address] documented as of this encounter Results * ABO/Rh type and screen (02/12/2020 11:13 AM CDT) ABO A 02/12/2020 12:24 PM CDT [facility] RH(D) Pos [facility] Antibody Screen Neg 02/12/2020 12:24 PM CDT [facility] Test Valid Only At [facility] 02/12/2020 12:48 PM CDT [facility] Specimen Expires 02/15/2020 02/12/2020 12:48 PM CDT [facility] Blood specimen (specimen) 02/12/2020 11:13 AM CDT 02/12/2020 11:14 AM CDT us Skip Carias MD LAB - BLOOD BANK TEST ORDER Dixie l Result Performing Organization Address City/State/[facility] Co de Phone Number [facility] [address] [place] [address], [facility] [phone] documented in this encounter Visit Diagnoses Diagnosis Pre-operative laboratory examination- Primary Pre-procedural laboratory examination documented in this encounter Additional Health Concerns Infection Onset Date Last Indicated Resolved Time Rule Out COVID-19 02/11/2020 02/11/2020 02/11/2020 9:11 PM CDT Rule Out COVID-19 05/19/2020 05/19/2020 05/21/2020 4:31 PM CDT Assessment Noted Time PHQ-9 Depression Total Score: 12 020 6:56 AM STEAM BONE PRESS TENDER documented as of this encounter Care Teams Portrait Artist Relationship Specialty Start Date End Date Andrew Erickson MD PCP - General Family Practice 11/12/17 Sandoval Boggs MD [address] [place] [address] Clinical Neurophysiology 11/03/18 Jordan Erickson MD [facility] [address] [place] [address] 11/03/18 Cheryl Mullen APRN LEAD SHAREPOINT DEVELOPER [address] [place] [address] Assigned PCP 04/25/20 06/07/20 Libertad Bonilla APRN LEAD SHAREPOINT DEVELOPER [address] [place] [address] Assigned PCP 06/08/20 09/06/20 Sandoval Boggs MD [address] [place] [address] Assigned Neuroscience Provider 06/13/20 09/19/21 Erich Gillette MD [address] [address] Assigned Sleep Provider 06/13/20 06/12/24 Libertad Bonilla APRN LEAD SHAREPOINT DEVELOPER [address] [place] [address] Assigned PCP 09/14/20 10/18/20 Cheryl Mullen APRN LEAD SHAREPOINT DEVELOPER [address] [place] [address] Assigned PCP 09/07/20 09/13/20 Cheryl Mullen APRN LEAD SHAREPOINT DEVELOPER [address] [place] [address] Assigned PCP 10/19/20 10/25/20 Libertad Bonilla, NEWSPAPER PRESS OPERATOR APPRENTICE LEAD SHAREPOINT DEVELOPER [address] [place] [address] Assigned PCP 10/26/20 11/12/20 Essence Wise [facility] [address] [place] [address] Pharmacist Pharmacist 06/01/21 Manish Catherine PA-C [address] [address] Assigned Neuroscience Provider 09/20/21 11/14/21 Heidy Harrell DO [address] [place] [address] MD Neurology 09/28/21 Heidy Harrell DO [address] [place] [address] Assigned Neuroscience Provider 04/17/22 Essence Wise [facility] [address] [place] [address] Assigned MTM Pharmacist 01/16/22 05/07/22 Heidy Harrell DO [address] [place] [address] Assigned Neuroscience Provider 11/15/21 04/16/22 Essence Wise [facility] [address] [place] [address] Assigned MTM Pharmacist 05/19/22 07/01/23 Essence Wise, [facility] [address] [place] [address] Assigned MTM Pharmacist 10/14/23 Pablito Paulson MD [address] [place] [address] Assigned Pulmonology Provider 03/13/24 Phuc Cruz MD [address] [place] [address] Cardiovascular Disease 09/20/24 01/02/25 Phuc Cruz MD Assigned Heart and Vascular Provider 10/14/24 01/10/25 Claudia Loya APRN LEAD SHAREPOINT DEVELOPER [address] [place] [address] Assigned Heart and Vascular Provider 01/11/25 documented as of this encounter
--- OUTSIDE RECORDS SUMMARY | 2025-02-09 00:56 | XMS_ITS | Encounter Summary ---
Author Organization [facility] Address [address] [place] [address] Care Team Providers Care Nurse Coordinator Name Role Phone Andrew Erickson MD Primary Care Provider [phone] Sandoval Boggs MD Unavailable [phone] Jordan Erickson MD Unavailable Erich Gillette MD Unavailable [phone] Essence Wise [facility] Unavailable [phone] Heidy Harrell DO Unavailable [phone] Heidy Harrell DO Unavailable +[phone] Essence Wise [facility] Unavailable +[phone] Pablito Paulson MD Unavailable Phuc Cruz MD Unavailable Unavailab Phuc Barraza MD Unavailable Unavailab Claudia Rodrigez APRN [facility] Unavailable [phone] Encounter Details Date Type Department Care Team [...] AM CDT Legal Sex Male 3:26 AM GEAR HOBBER OPERATOR Gender Identity Male 04/09/2020 8:36 AM CDT Sexual Orientation Straight 04/09/2020 8: 36 AM CDT documented as of this encounter Plan of Treatment Upcoming Encounters Date Type Department Care Team (Late st Contact Info) Description 07/10/2025 12:00 PM GEAR HOBBER OPERATOR Office Visit [facility] Neurology Clinic [address] [address] Lary Schmitz, LOAN COUNSELOR [facility] [address] [place] [address] [id number] [address] documented as of this encounter Visit Diagnoses Diagnosis Polyneuropathy- Primary Unspecified hereditary and idiopathic peripheral neuropathy documented in this encounter Additional Health Concerns Assessment Noted Time PHQ-9 Depression Total Score: 14 021 7:02 AM CDT documented as of this encounter Care Teams Nurse Coordinator Relationship Specialty Start Date End Date Andrew Erickson MD PCP - General Family Practice 11/12/17 Sandoval Boggs MD [address] [place] [address] Clinical Neurophysiology 11/03/18 Jordan Erickson MD [facility] [address] [place] [address] 11/03/18 Erich Gillette MD [address] [facility] [address] [place] [address] Assigned Sleep Provider 06/13/20 06/12/24 Essence Wise [facility] [address] [place] [address] Pharmacist Pharmacist 06/01/21 Heidy Harrell DO [address] [place] [address] Neurology 09/28/21 Heidy Harrell DO [address] [place] [address] Assigned Neuroscience Provider 04/17/22 Essence Wise [facility] [address] [place] [address] Assigned MTM Pharmacist 10/14/23 Pablito Paulson MD [address] [place] [address] Assigned Pulmonology Provider 03/13/24 Phuc Cruz MD [address] [place] [address] Cardiovascular Disease 09/20/24 01/02/25 Phuc Cruz MD Assigned Heart and Vascular Provider 10/14/24 01/10/25 Claudia Loya APRN WIND TURBINE TECHNICIAN [address] [address] Assigned Heart and Vascular Provider 01/11/25 documented as of this encounter
--- OUTSIDE RECORDS SUMMARY | 2025-02-09 00:56 | XMS_ITS | Encounter Summary ---
Author Organization [facility] Address [address] [place] [address] Care Team Providers Care Cloth Opener Hand Name Role Phone Andrew Erickson MD Primary Care Provider [phone] Sandoval Boggs MD Unavailable [phone] Jordan Erickson MD Unavailable [phone] Cheryl Mullen GROCERY BUYER PLANT CONTROL AIDE Unavailable + Libertad Bonilla GROCERY BUYER PLANT CONTROL AIDE Unavailable +[phone] Sandoval Boggs MD Unavailable [phone] Erich Gillette MD Unavailable +[phone] Libertad Bonilla APRN PLANT CONTROL AIDE Unavailable +08-27 Cheryl Mullen GROCERY BUYER PLANT CONTROL AIDE Unavailable + Cheryl Mullen GROCERY BUYER PLANT CONTROL AIDE Unavailable + Libertad Bonilla GROCERY BUYER PLANT CONTROL AIDE Unavailable +08-27 Essence Wise [facility] Unavailable + [phone] Manish Catherine PA-C Unavailable + [phone] Heidy Harrell DO Unavailable +[phone] Heidy Harrell DO Unavailable +[phone] Essence Wise [facility] Unavailable + [phone] Heidy Harrell DO Unavailable +[phone] Essence Wise [facility] Unavailable [phone] Essence Wise [facility] Unavailable [phone] Pablito Paulson MD Unavailable Phuc Cruz MD Unavailable Unavailab Phuc Barraza MD Unavailable Unavailab Claudia Rodrigez APRN PLANT CONTROL AIDE Unavailable [phone] Encounter Details Date Type Department Care Team (Late st Contact Info) Description 04/23/2020 Orders Only [facility] [address] [place] [address] Chester Venegas MD [facility] [address] [place] [address] [place] [address] Pre-operative laboratory examination (Primary Dx) [...] AM CDT Legal Sex Male 3:26 AM ROTARY PEEL OVEN TENDER Gender Identity Male 04/09/2020 8:36 AM [...] st Contact Info) Description 07/10/2025 12:00 PM ROTARY PEEL OVEN TENDER Office Visit [facility] Neurology Clinic [address] [address] Lary Schmitz APRN PLANT CONTROL AIDE [address] [address] documented as of this encounter Results * Methicillin Resistant Staph Aureus PCR (04/23/2020 11:55 AM CDT) Specimen Description Nares 04/23/2020 12:33 PM CDT [facility] Methicillin Resist/Sens S. aureus PCR Negative NEG^Negat chilango 04/23/2020 5:56 PM CDT [facility] Comment: MRSA Negative: SA Positive MRSA [...] nasal colonization. FDA approved assay performed using [employer] GeneXpert(R) real-time PCR. Nasal structure (body structure) 04/23/2020 11:55 AM CDT 04/23/2020 12:33 PM CDT Chester Venegas MD LAB - MICRO GENERAL ORDERABLES Final Result [facility] [address] [place], [place] [address] [place] [address] [address] [place], [place] [address] [phone] documented in this encounter Visit Diagnoses Diagnosis Pre-operative laboratory examination- Primary Pre-procedural laboratory examination documented in this encounter Additional Health Concerns Infection Onset Date Last Indicated Resolved Time Rule Out COVID-19 05/19/2020 05/19/2020 05/21/2020 4:31 PM CDT Assessment Noted Time PHQ-9 Depression Total Score: 12 020 6:56 AM ROTARY PEEL OVEN TENDER documented as of this encounter Care Teams Cloth Opener Hand Relationship Specialty Start Date End Date Andrew Erickson MD PCP - General Family Practice 11/12/17 Sandoval Boggs MD [address] [place] [address] Clinical Neurophysiology 11/03/18 Jordan Erickson MD [address] [address] 11/03/18 Cheryl Mullen APRN PLANT CONTROL AIDE [address] [place] [address] Assigned PCP 04/25/20 06/07/20 Libertad Bonilla APRN PLANT CONTROL AIDE [address] [place] [address] Assigned PCP 06/08/20 09/06/20 Sandoval Boggs MD [address] [place] [address] Assigned Neuroscience Provider 06/13/20 09/19/21 Erich Gillette MD [address] [address] Assigned Sleep Provider 06/13/20 06/12/24 Libertad Bonilla APRN PLANT CONTROL AIDE [address] [place] [address] Assigned PCP 09/14/20 10/18/20 Cheryl Mullen APRN PLANT CONTROL AIDE [address] [place] [address] Assigned PCP 09/07/20 09/13/20 Cheryl Mullen APRN PLANT CONTROL AIDE [address] [place] [address] Assigned PCP 10/19/20 10/25/20 Libertad Bonilla APRN PLANT CONTROL AIDE [address] [place] [address] Assigned PCP 10/26/20 11/12/20 Essence Wise [facility] [address] [place] [address] Pharmacist Pharmacist 06/01/21 Manish Catherine PA-C [address] [facility] [address] Assigned Neuroscience Provider 09/20/21 11/14/21 Heidy Harrell DO [address] [place] [address] MD Neurology 09/28/21 Heidy Harrell DO [address] [place] [address] Assigned Neuroscience Provider 04/17/22 Essence Wsie [facility] [address] [place] [address] Assigned MTM Pharmacist 01/16/22 05/07/22 Heidy Harrell DO [address] [place] [address] Assigned Neuroscience Provider 11/15/21 04/16/22 Essence Wise [facility] [address] [place] [address] Assigned MTM Pharmacist 05/19/22 07/01/23 Essence Wise [facility] [address] [place] [address] Assigned MTM Pharmacist 10/14/23 Pablito Paulson MD [address] [place] [address] Assigned Pulmonology Provider 03/13/24 Phuc Cruz MD [address] [place] [address] Cardiovascular Disease 09/20/24 01/02/25 Phuc Cruz MD Assigned Heart and Vascular Provider 10/14/24 01/10/25 Claudia Loya APRN PLANT CONTROL AIDE [address] [place] [address] Assigned Heart and Vascular Provider 01/11/25 documented as of this encounter
--- OUTSIDE RECORDS SUMMARY | 2025-02-09 00:56 | XMS_ITS | Encounter Summary ---
Author Organization [facility] Address [address] [place] [address] Care Team Providers Care Binder Selector Name Role Phone Andrew Erickson MD Primary Care Provider [phone] Sandoval Boggs MD Unavailable [phone] Jordan Erickson MD Unavailable [phone] Erich Gillette MD Unavailable [phone] Essence Wise [facility] Unavailable Heidy Harrell DO Unavailable [phone] Heidy Harrell DO Unavailable [phone] Essence Wise [facility] Unavailable [phone] Heidy Harrell DO Unavailable [phone] Essence Wise [facility] Unavailable [phone] Essence Wise [facility] Unavailable [phone] Pablito Paulson MD Unavailable Phuc Cruz MD Unavailable Unavailab Phuc Barraza MD Unavailable Unavailab Claudia Rodrigez APRN WET CROWN BLOCKING OPERATOR Unavailable [phone] Encounter Details Date Type Department Care Team (Late st Contact Info) Description 03/01/2022 External Order Results [facility] [address] [place] [address] Outside, Provider Social History Tobacco Use Types [...] AM CDT Legal Sex Male 3:26 AM STORAGE ARCHITECT Gender Identity Male 04/09/2020 8:36 AM [...] st Contact Info) Description 07/10/2025 12:00 PM STORAGE ARCHITECT Office Visit [facility] Neurology [address] [address] Lary Schmitz, DIRECTOR OF EVENT MARKETING [address], [place] [address] documented as of this encounter Procedures Procedure [...] documented as of this encounter Care Teams Binder Selector Relationship Specialty Start Date End Date Andrew Erickson MD PCP - General Family Practice 11/12/17 Sandoval Boggs MD [address] [place] [address] Clinical Neurophysiology 11/03/18 Jordan Erickson MD [address] [address] 11/03/18 Erich Gillette MD [address] [address] Assigned Sleep Provider 06/13/20 06/12/24 Essence Wise, [facility] [address] [place] [address] Pharmacist Pharmacist 06/01/21 Heidy Harrell DO [address] [place] [address]265 Neurology 09/28/21 Heidy Harrell DO [address] [place] [address] Assigned Neuroscience Provider 04/17/22 [facility] [address] [place] [address] Assigned MTM Pharmacist 01/16/22 05/07/22 Heidy Harrell DO [address] [place] [address] Assigned Neuroscience Provider 11/15/21 04/16/22 Essence Wise [facility] [address] [place] [address] Assigned MTM Pharmacist 05/19/22 07/01/23 Essence Wise [facility] [address] [place] [address] Assigned MTM Pharmacist 10/14/23 Pablito Paulson MD [address] [place] [address] Assigned Pulmonology Provider 03/13/24 Phuc Cruz MD [address] [place] [address] Cardiovascular Disease 09/20/24 01/02/25 Phuc Cruz MD Assigned Heart and Vascular Provider 10/14/24 01/10/25 Claudia Loya APRN WET CROWN BLOCKING OPERATOR [address] [address] Assigned Heart and Vascular Provider 01/11/25 documented as of this encounter
--- OUTSIDE RECORDS SUMMARY | 2025-02-09 00:56 | XMS_ITS | Encounter Summary ---
Author Organization [place] Address [address] [facility] [place] [address] Care Team Providers Care Associate Automation Engineer Name Role Phone Andrew Erickson MD Primary Care Provider [phone] Sandoval Boggs MD Unavailable [phone] Jordan Erickson MD Unavailable [phone] Essence Wise [facility] Unavailable +[phone] Heidy Harrell DO Unavailable [phone] Heidy Harrell DO Unavailable [phone] Essence Wise [facility] Unavailable [phone] Pablito Paulson MD Unavailable Claudia Loya APRN REHAB DIRECTOR Unavailable [phone] Encounter Details Date Type Department Care Team [...] AM CDT Legal Sex Male 3:26 AM GAS DESULFURIZER Gender Identity Male 04/09/2020 8:36 AM CDT Sexual Orientation Straight 04/09/2020 8: 36 AM CDT documented as of this encounter Plan of Treatment Upcoming Encounters Date Type Department Care Team (Late st Contact Info) Description 07/10/2025 12:00 PM GAS DESULFURIZER Office Visit [facility] Neurology [address] [address] Lary Schmitz, EVERETTE REHAB DIRECTOR [address] [facility] [id number] [place] [address] documented as of this encounter Visit Diagnoses Not on filedocumented in this encounter Additional Health Concerns Assessment Noted Time PHQ-9 Depression Total Score: 8 11/07/19 25 9:03 AM CDT documented as of this encounter Care Teams Associate Automation Engineer Relationship Specialty Start Date End Date Andrew Erickson MD PCP - General Family Practice 11/12/17 Sandoval Boggs MD [address] [place] [address] Clinical Neurophysiology 11/03/18 Jordan Erickson MD [address] [address] 11/03/18 Essence Wise, [facility] [address] [place] [address] Pharmacist Pharmacist 06/01/21 Heidy Harrell DO [address] [place] [address] Neurology 09/28/21 Heidy Harrell DO [address] [place] [address] Assigned Neuroscience Provider 04/17/22 Essence Wise, [facility] [address] [place] [address] Assigned MTM Pharmacist 10/14/23 Pablito Paulson MD [address] [place] [address] Assigned Pulmonology Provider 03/13/24 Claudia Loya APRN REHAB DIRECTOR [address] 768565 Assigned Heart and Vascular Provider 01/11/25 documented as of this encounter
--- OUTSIDE RECORDS SUMMARY | 2025-02-09 00:56 | XMS_ITS | Clinical Summary ---
Author Organization [facility] Address [facility] [place] [address] Care Team Providers Care Service Delivery Consultant Name Role Phone Lino Erickson MD Primary Care Provider [phone] Allergies Active Allergy Reactions Criticality Noted Date [...] 24 hrs. 20 Tablet 3 3:54 PM PROPERTY FIELD INSPECTOR 10/12/19 23 Active Active Problems Problem Noted [...] on file Legal Sex Male 6:06 AM PROPERTY FIELD INSPECTOR Gender Identity Not on file Sexual Orientation Not on file Obstetrics History Last Filed Vital Signs Vital Sign Reading Time Taken Comments Blood Pressure 109/73 10/12/2022 5:00 PM PROPERTY FIELD INSPECTOR Pulse 86 10/12/2022 5:00 PM PROPERTY FIELD INSPECTOR Temperature 36.9 C (98.4 F) 10/12/2022 5:00 PM PROPERTY FIELD INSPECTOR Respiratory Rate 18 10/12/2022 5:00 PM PROPERTY FIELD INSPECTOR Oxygen Saturation 97% 10/12/2022 5:00 PM PROPERTY FIELD INSPECTOR Inhaled Oxygen Concentration - - Weight 98.6 kg (217 lb 6 oz) 10/08/2022 10:38 AM PROPERTY FIELD INSPECTOR Height 190.5 cm (6' 3) 10/08/2022 10:38 AM PROPERTY FIELD INSPECTOR Body Mass Index 27.17 10/08/2022 10:38 AM PROPERTY FIELD INSPECTOR Plan of Treatment Health Maintenance Due Date [...] this topic Medical Devices Implanted Type Area Construction Project Assistant Device Identifier Shelf Expiration Date Model / Serial / Lot Shell Hip Lt Od56mm [facility] X3 - [id number] Implanted:Qty: 1 on 10/23/2012 at [facility] Left: Hip Walter [employer] 1235-2-562 # / / [id number] Stem Hip Sz8 127deg Accolade Ii - [id number] Implanted:Qty: 1 on 10/23/2012 at [facility] Left: Hip [place] [employer] [id number]# / / [id number] Liner Hip Id28 Od56mm Adm X3 Pe - [id number] Implanted:Qty: 1 on 10/23/2012 at [facility] Left: Hip [employer]opp[employer] 1236-2-856 # / / [id number] Head Hip Od28mm +4 Biolox Delta C-Taper Alumina Cer - [id number] Implanted:Qty: 1 on 10/23/2012 at [facility] Left: Hip Walter [employer]oppa 6570-0-228 # / / [id number] Shell Hip Rt Od58mm [facility] X3 - [id number] Implanted:Qty: 1 on 10/23/2018 by Francis Huerta MD at [facility] Right: Hip [facility] 07/20/2021 [id number]# / / [id number] Stem Hip Sz8 127deg Accolade Ii - [id number] Implanted:Qty: 1 on 10/23/2018 by Francis Huerta MD at [facility] Right: Hip [facility] 07/05/2023 [id number]# / / [id number] Liner Hip Id28 Od58mm Adm X3 Pe - [id number] Implanted:Qty: 1 on 10/23/2018 by Francis Huerta MD at [facility] Right: Hip [facility] 03/07/2023 [id number]# / / [id number] Head Hip Od28mm +4 [employer]ox Delta C-Taper Alumina Cer - [id number] Implanted:Qty: 1 on 10/23/2018 by Francis Huerta MD at [facility] Right: Hip [facility] 09/06/2023 6570-0-228 # / / [id number] Insurance MEDICARE PART B HB ONLY MEDICARE PART A HB ONLY [facility] MEDICARE PB ONLY Advance Directives * Full [...] 5:13 AM 10/23/2012 12:02 PM Care Teams Service Delivery Consultant Relationship Specialty Start Date End Date Lino Erickson MD PCP - General 02/08/08
--- OUTSIDE RECORDS SUMMARY | 2025-02-09 00:56 | XMS_ITS | Clinical Summary ---
Author Organization [place] Address [address] [place] [address] Care Team Providers Care Retort Loader Name Role Phone Andrew Erickson MD Primary Care Provider [phone] Sandoval Boggs MD Unavailable [phone] Jordan Erickson MD Unavailable [phone] Essence Wise [facility] Unavailable [phone] Heidy Harrell DO Unavailable Heidy Harrell DO Unavailable [phone] Essence Wise [facility] Unavailable Pablito Paulson MD Unavailable Claudia Loya APRN PLASTICS TOOLING ENGINEER Unavailable [phone] Allergies Active Allergy Reactions Criticality Noted Date Comments Amylase Rash Low 02/07/2020 Cascara Unknown 02/07/2020 Pancrelipase (Ctn-Jwue-Dzef) Rash Low 020 Nsaids GI Disturbance 02/07/2020 [...] tablet by mouth daily 10/12/19 13 Active [place]-3 Fatty Acids (FISH OIL) 1200 MG capsule Take 1,200 mg by mouth daily Active DULoxetine (CYMBALTA) 60 MG capsule Take 60 mg by mouth every morning Active clonazePAM (KLONOPIN) 1 MG tabletIndicatio ns:S/P lumbar fusion Take 1 tablet (1 mg) by mouth At Bedtime 30 tablet 5 09/05/19 21 Active amylase-lipase- protease (CREON 24) 90787-26137 units CPEP per EC capsule Take 1 [...] Description 01/28/2025 11:30 AM CDT Office Visit [address] [place] [phone] Claudia Loya APRN CNP Orthostatic hypotension (Primary Dx); Lightheadedness; Chronic fatigue; Exertional dyspnea; Parkinson's disease, unspecified whether dyskinesia present, unspecified whether manifestations fluctuate (H) 01/28/2025 10:30 AM CDT Lab [address] [place] [phone] Hyponatremia; Primary hypertension 01/28/2025 Travel 01/24/2025 Refill [facility] [place] [address] [facility] [address] [place] [phone] Claudia Loya APRN PLASTICS TOOLING ENGINEER Refill Request 01/22/2025 Telephone [facility] [address] [facility] [address] [place] [phone] Tami Agarwal RN 01/16/2025 12:45 PM CDT Office Visit [facility] [address] [address] Lary Schmitz APRN CNP Parkinson's disease without dyskinesia or fluctuating manifestations (H) (Primary Dx); Falls frequently; Orthostatic hypotension; Memory problem 01/16/2025 Travel 01/15/2025 Travel 12/14/2024 9:48 AM CDT - 12/14/2024 11:59 PM CDT Hospital Encounter [facility] [address] [place] [address] Claudia Loya APRN PLASTICS TOOLING ENGINEER Discharge Disposition: Home or Self Care 12/14/2024 9:48 AM CDT - 12/14/2024 11:59 PM CDT Hospital Encounter [facility] [address] [place] [address] Claudia Loya APRN PLASTICS TOOLING ENGINEER Discharge Disposition: Home or Self Care 12/14/2024 9:48 AM CDT - 12/14/2024 11:59 PM CDT Hospital Encounter [facility] [address] [place] [address] Claudia Loya APRN PLASTICS TOOLING ENGINEER Discharge Disposition: Home or Self Care 12/14/2024 9:48 AM CDT - 12/14/2024 11:59 PM CDT Hospital Encounter [facility] [address] [place] [address] Claudia Loya APRN PLASTICS TOOLING ENGINEER Exertional dyspnea; Chronic fatigue Discharge Disposition: Home or Self Care 12/14/2024 9:30 AM CDT Lab [facility] [address] [facility] [address] [place] [address] Orthostatic hypotension 12/14/2024 Travel 12/06/2024 8:40 AM CDT Office Visit [facility] [address] [facility] [address] [place] [address] Phuc Cruz MD Christenson, Kim, APRN PLASTICS TOOLING ENGINEER Orthostatic hypotension (Primary Dx); Exertional dyspnea; Chronic fatigue; Obstructive sleep apnea syndrome; Parkinson's disease, unspecified whether dyskinesia present, unspecified whether manifestations fluctuate (H); Hyponatremia 12/06/2024 7:45 AM CDT Lab [facility] [address] [place] [address] [address] [place] [address] Orthostatic hypotension 12/06/2024 Travel 11/19/2024 Telephone [place] [id number] [place] [phone] Phuc Cruz MD Symptoms (Red-Flag - Elevated BP ) 11/14/[address] [facility] [address] [address] Essence Wise [facility] from Last 3 Months Family History Relation [...] AM CDT Legal Sex Male 3:26 AM SHOWROOM SALESPERSON Gender Identity Male 04/09/2020 8:36 AM CDT [...] st Contact Info) Description 07/10/2025 12:00 PM SHOWROOM SALESPERSON Office Visit [facility]rology [address] [address] Lary Schmitz, OSTEOPATHY DOCTOR [address], [place] [address] Health Maintenance Due Date Last Done Comments [...] (Cologuard) Discontinued Medical Devices Implanted Type Area Dry Cleaning Machine Operator Device Identifier Shelf Expiration Date Model / Serial / Lot Bone Cement Radiopaque Simplex P Speedset 6192-1-001 Implanted:Qty : 1 on 02/13/2020 by Skip Carias MD at [facility] Cement, Bone Right: Shoulder [employer] 01/19/2021 6192-1-001 / / [id number] Creo 5.5, 7.5x50mm Fung Coated Screws Implanted:Qty : 4 on 05/02/2020 by Chester Venegas MD at [facility] Metallic Hardware/A nchor N/A: Spine Lumbar [employer] 11/25/2026 5119.1751S / / [id number] Creo 5.5, 7.5x45mm Fung Coated Screws Implanted:Qty : 1 on 05/02/2020 by Chester Venegas MD at [facility] Metallic Hardware/A nchor N/A: Spine Lumbar [employer] 07/16/2024 5119.1746S / / [id number] Creo 5.5, 7.5x45mm Fung Coated Screws Implanted:Qty : 1 on 05/02/2020 by Chester Venegas MD at [facility] Metallic Hardware/A nchor N/A: Spine Lumbar [employer] 10/10/2024 5119.1746S / / [id number] Creo 5.5, 7.5x50mm Fung Coated Screws Implanted:Qty : 2 on 05/02/2020 by Chester Venegas MD at [facility] Metallic Hardware/A nchor N/A: Spine Lumbar [employer] 12/19/2026 5119.1751S / / [id number] Creo Locking Cap Implanted:Qty : 10 on 05/02/2020 by Chester Venegas MD at [facility] Metallic Hardware/A nchor N/A: Spine Lumbar [employer] 1119.0000 / / [id number] 10SEP 2019 Rise Spacer [id number], 7-14mm Implanted:Qty : 1 on 05/02/2020 by Chester Venegas MD at [facility] Metallic Hardware/A nchor N/A: Spine Lumbar [employer] 193.203 / / 8008 10SEP 2020 Rise Spacer [id number], 8-15mm, 10deg Implanted:Qty : 1 on 05/02/2020 [...] / 8008 SEP 2019 5.5mm Curved Olaf Ada Chrome, 125mm Implanted:Qty : 2 on 05/02/2020 by Chester Venegas MD at [facility] Metallic Hardware/A nchor N/A: Spine Lumbar [employer] 7119.7125 / / 8008 SEP 2019 Imp Kit Syndemosis Arthrex Tightrope Knotless Ss [id number] Implanted:Qty : 2 on 09/24/2020 by Skip Carias MD at [facility] Metallic Hardware/A nchor Right: Ankle [employer] 05/21/2024 AR-8926SS / / [id number] Imp Scr Arthrex Lp Can 4.0x50mm Long Thrd Ss [id number] Implanted:Qty : 1 on 09/24/2020 by Skip Carias MD at [facility] Metallic Hardware/A nchor Right: Ankle [employer] AR-8840CL-5 0 / / IMP 4MM CANNULATED LONG THREAD 48MM Screw Bsplt 35mm 6.5mm Aqls Prfrm Glnd Rvrs Cntr Ns Xbj595 - [id number] Implanted:Qty : 1 on 03/03/2022 by Skip Carias MD at [facility] Metallic Hardware/A nchor Left: Shoulder [employer] PFH908 / / 9 02 MAR 2022 Screw Peripheral 5.0x34mm Ucu353 - [id number] Implanted:Qty : 1 on 03/03/2022 by Skip Carias MD at [facility] Metallic Hardware/A nchor Left: Shoulder [employer] ENF751 / / [id number] 02 MAR 2022 Screw Peripheral 38mm - [id number] Implanted:Qty : 1 on 03/03/2022 by Skip Carias MD at [facility] Metallic Hardware/A nchor Left: Shoulder [employer] ECC372 / / 8009 02 MAR 2022 Baseplate Lateral Rvrs 29mm Offs 15d Wedge Augment Syu584 - [id number] Implanted:Qty : 1 on 03/03/2022 by Skip Carias MD at [facility] Total Joint Component/ Insert Left: Shoulder [employer] 01/01/2027 OPN124 / [id number] / Gleosphere Lateralized Standard 42mm Qmg344 - [id number] Implanted:Qty : 1 on 03/03/2022 by Skip Carias MD at [facility] Total Joint Component/ Insert Left: Shoulder [employer] 05/20/2026 FRY973 / [id number] / Insert Hum Revision Reverse +6 42mm 12.5d Xrg972o - [id number] Implanted:Qty : 1 on 03/03/2022 by Skip Carias MD at [facility] Total Joint Component/ Insert Left: Shoulder [employer] 12/17/2025 [id number] / [id number] / Tray Reverse Low Offset +0 Tab972 - [id number] Implanted:Qty : 1 on 03/03/2022 by Skip Carias MD at [facility] Total Joint Component/ Insert Left: Shoulder [employer] 10/07/2026 USG704 / [id number] / Stem Humeral Anatomic Std Ptc 7b - [id number] Implanted:Qty : 1 on 03/03/2022 by Skip Carias MD at [facility] Total Joint Component/ Insert Left: Shoulder [employer] 06/01/2026 EPT574F / [id number] / Cortiloc Glenoid Augment Large Right 15 Degree Implanted:Qty : 1 on 02/13/2020 by Skip Carias MD at [facility] Right: Shoulder TORNIER 11/29/2024 [id number] / [id number] / Standard Ptc Humeral Stem Size 6b 132.5 Degree Length 86 Mm Implanted:Qty : 1 on 02/13/2020 by Skip Carias MD at [facility] Right: Shoulder TORNIER 07/04/2024 ASY628G / [id number] / Stb Humeral Head 51 Mm X 20 Mm Implanted:Qty : 1 on 02/13/2020 by Skip Carias MD at [facility] Right: Shoulder TORNIER 05/26/2022 SXF550 / [id number] / Creo 5.5, 7.5x40mm Fung Coated Screw Implanted:Qty : 1 on 05/02/2020 by Chester Venegas MD at [facility] N/A: Spine Lumbar [employer] 06/25/2024 5119.1741S / / [id number] Creo 5.5, 7.5x40mm Fung Coated Screw Implanted:Qty : 1 on 05/02/2020 by Chester Venegas MD at [facility] N/A: Spine Lumbar [employer] 09/13/2024 5119.1741S / / [id number] Graft Bone Infuse Bmp Lg [id number] Implanted:Qty : 1 on 05/02/2020 by Chester Venegas MD at [facility] N/A: Spine Lumbar [employer] 12/20/2020 [id number] / / [id number] Stainless Steel 2-Hole Buttress Plate Implanted:Qty : 1 on 09/24/2020 by Skip Carias MD at [facility] Right: Ankle [id number] AR-8958-01 / / [id number] 21 Imp 4mm Cannulated Long Thread 48mm Implanted:Qty : 1 on 09/24/2020 by Skip Carias MD at [facility] Right: Ankle ARTHREX AR-8840CL-4 [id number] Procedures Procedure Name Priority Date/Time Associated Diagnosis Comments BASIC METABOLIC PANEL Routine 01/28/2025 10:54 AM CDT Hyponatremia Primary hypertension NM MPI WITH LEXISCAN Routine 12/14/2024 12:32 PM CDT Exertional dyspnea Chronic fatigue BASIC METABOLIC PANEL Routine 12/14/2024 9:38 AM CDT Orthostatic hypotension BASIC METABOLIC PANEL Routine 12/06/2024 8:06 AM CDT Orthostatic hypotension LIPID PROFILE Routine 06/26/2024 10:28 AM SHOWROOM SALESPERSON HEPATITIS C ANTIBODY Add-On 10/12/2019 10:31 PM SHOWROOM SALESPERSON Fever, unknown origin COLONOSCOPY Routine 09/30/2010 9:40 AM SHOWROOM SALESPERSON from Last 3 Months or Most Recently [...] 10:54 AM CDT us Claudia Loya APRN PLASTICS TOOLING ENGINEER LAB - BLOOD ORDERABLES Final Result [facility] [address] Lab (1st floor, no room number) [place] [address], [facility] * NM Lexiscan stress test (12/14/2024 12:32 [...] under the supervision of Lloyd Rodriguez MD [[id number]]. The patient reported dyspnea during the stress [...] rest on 12/14/2024. Nuclear Study Quality The quality assurance images demonstrate diaphragmatic attenuation. Final image quality [...] ventricular wall motion is normal. Claudia Loya OSTEOPATHY DOCTOR PLASTICS TOOLING ENGINEER IMG NM ORDERABLES Final Result * Lipid Profile (06/26/2024 10:28 AM SHOWROOM SALESPERSON) Cholesterol (External) 182 90 - 199 mg/dL NON-INTERFACED (ONBASE SCANS) LDL Cholesterol Calculated (External) 73 <100 mg/dL NON-INTERFACED (ONBASE SCANS) HDL Cholesterol (External) 93 >=40 mg/dL NON-INTERFACED (ONBASE SCANS) Blood BLOOD SPECIMEN / Unknown 06/26/2024 10:28 AM SHOWROOM SALESPERSON Narrative NIKOLE PFT - 09/26/2024 10:26 AM SHOWROOM SALESPERSON Verified by Nieves Arredondo on 09/26/2024. us Provider Outside LAB - BLOOD ORDERABLES Edited R esult - Final NIKOLE PFDouglas NON-INTERFACED (ONBASE SCANS) * Hepatitis C antibody (10/12/2019 10:31 PM SHOWROOM SALESPERSON) Pathologist [facility] Hepatitis C Antibody Nonreactive NR^Nonre active 10/15/2019 12:00 PM SHOWROOM SALESPERSON [facility] Comment: Assay performance characteristics have not been established for newborns, infants, and children Blood specimen (specimen) 10/12/2019 10:31 PM SHOWROOM SALESPERSON 10/12/2019 10:32 PM SHOWROOM SALESPERSON us Timi Vail MD LAB - BLOOD ORDERABLES Final Result [facility] [address] [place] [address] * COLONOSCOPY (09/30/2010 9:40 AM SHOWROOM SALESPERSON) COLONOSCOPY [facility] Patient Name: Kar Aguilar Procedure Date: [...] 9:40 AM RADIOLOGY RESULTS 09/30/2010 9:40 AM SHOWROOM SALESPERSON Andrew Erickson MD PROCEDURES Final Result RADIOLOGY RESULTS from Last 3 Months or Most Recently Relevant to Health Maintenance [place] [address] [place] [id number] [facility] MEDICARE SUPPLEMENT [place] * Guarantor: Kar Aguilar Account Type Relation to Patient Date of Phone Billing Address Medication Therapy Self 1950 [address] [place] [address] MEDICARE BCBS [facility] MEDICARE SUPPLEMENT Advance Directives For more information, please contact: [phone] * Full Code (Latest Code Status on [...] patie nt/ legal decision maker Care Teams Retort Loader Relationship Specialty Start Date End Date Andrew Erickson MD PCP - General Family Practice 11/12/17 Sandoval Boggs MD [address] [place] [address] [id number] Clinical Neurophysiology 11/03/18 Jordan Erickson MD [address] [address] 11/03/18 Essence Wise [facility] [address] [place] [address] Pharmacist Pharmacist 06/01/21 Heidy Harrell DO [address] [place] [address] 866105 Neurology 09/28/21 Heidy Harrell DO [address] [place] [address] Assigned Neuroscience Provider 04/17/22 Essence Wise [facility] [address] [place] [address] Assigned MTM Pharmacist 10/14/23 Pablito Paulson MD [address] [place] [address] Assigned Pulmonology Provider 03/13/24 Claudia Loya APRN PLASTICS TOOLING ENGINEER [address] [place] [address] Assigned Heart and Vascular Provider 01/11/25
--- OUTSIDE RECORDS SUMMARY | 2025-02-09 00:56 | XMS_ITS | Encounter Summary ---
Author Organization [place] Address [address] [place] [address] Care Team Providers Care Jammer Hooker Name Role Phone Andrew Erickson MD Primary Care Provider [phone] Sandoval Boggs MD Unavailable [phone] Jordan Erickson MD Unavailable [phone] Sandoval Boggs MD Unavailable [phone] Erich Gillette MD Unavailable [phone] Essence Wise [facility] Unavailable +[phone] Manish Catherine PA-C Unavailable [phone] Heidy Harrell DO Unavailable [phone] Heidy Harrell DO Unavailable [phone] Essence Wise [facility] Unavailable [phone] Heidy Harrell DO Unavailable [phone] Essence Wise [facility] Unavailable [phone] Essence Wise [facility] Unavailable [phone] Pablito Paulson MD Unavailable Phuc Cruz MD Unavailable Unavailab Phuc Barraza MD Unavailable Unavailab Claudia Rodrigez APRN, CNP Unavailable [phone] Encounter Details Date Type Department Care Team (Late st Contact Info) Description 02/18/[address] [facility] Neurology Clinic [address] [place] [phone] Stephanie Guajardo Social History Tobacco Use Types Packs/Day Years Used Date Smoking Tobacco: Never Smokeless Tobacco: Never Alcohol Use Standard Drinks/Week Comments Yes 0 (1 standard drink = 0.6 oz pur e alcohol) occas PHQ-2 Answer Date Recorded PHQ-2 Score 2 08/28/2019 Sex and Gender Information Value Date Recorded Sex Assigned at Male 04/09/2020 8:36 AM CDT Legal Sex Male 3:26 AM SCHEDULE CLERK Gender Identity Male 04/09/2020 8:36 AM CDT Sexual Orientation Straight 04/09/2020 8: 36 AM CDT documented as of this encounter Plan of Treatment Upcoming Encounters Date Type Department Care Team (Late st Contact Info) Description 07/10/2025 12:00 PM SCHEDULE CLERK Office Visit [facility] Neurology [address] [address] Lary Schmitz, SPOOLER [id number] [place] [address] documented as of this encounter Visit Diagnoses Not on filedocumented in this encounter Additional Health Concerns Assessment Noted Time PHQ-9 Depression Total Score: 12 020 6:56 AM SCHEDULE CLERK documented as of this encounter Care Teams Jammer Hooker Relationship Specialty Start Date End Date Andrew Erickson MD PCP - General Family Practice 11/12/17 Sandoval Boggs MD [address] [place] [address] Clinical Neurophysiology 11/03/18 Jordan Erickson MD [address] [address] 11/03/18 Sandoval Boggs MD [address] [place] [address] Assigned Neuroscience Provider 06/13/20 09/19/21 Erich Gillette MD [address] [place] [address] Assigned Sleep Provider 06/13/20 06/12/24 Essence Wise [facility] [address] [place] [address] Pharmacist Pharmacist 06/01/21 Manish Catherine PA-C [address] [place] [address] Assigned Neuroscience Provider 09/20/21 11/14/21 Heidy Harrell DO [address] [place] [address] Neurology 09/28/21 Heidy Harrell DO [address] [place] [address] Assigned Neuroscience Provider 04/17/22 Essence Wise [facility] [address] [place] [address] Assigned MTM Pharmacist 01/16/22 05/07/22 Heidy Harrell DO [address] [place] [address] Assigned Neuroscience Provider 11/15/21 04/16/22 Essence Wise [facility] [address] [place] [address] Assigned MTM Pharmacist 05/19/22 07/01/23 Essence Wise [facility] [address] [place] [address] Assigned MTM Pharmacist 10/14/23 Pablito Paulson MD [address] [place] [address] Assigned Pulmonology Provider 03/13/24 Phuc Cruz MD [address] [place] [address] Cardiovascular Disease 09/20/24 01/02/25 Phuc Cruz MD Assigned Heart and Vascular Provider 10/14/24 01/10/25 Claudia Loya APRN SECOND FACING BASTER [address] [place] [address] Assigned Heart and Vascular Provider 01/11/25 documented as of this encounter
--- OUTSIDE RECORDS SUMMARY | 2025-02-09 00:56 | XMS_ITS | Encounter Summary ---
Author Organization [facility] Address [address] [place] [address] Care Team Providers Care French Instructor Name Role Phone Andrew Erickson MD Primary Care Provider [phone] Sandoval Boggs MD Unavailable [phone] Jordan Erickson MD Unavailable [phone] Cheryl Mullen CAREER DEVELOPMENT COUNSELOR REHAB NURSING TECH Unavailable + Libertad Bonilla CAREER DEVELOPMENT COUNSELOR REHAB NURSING TECH Unavailable +[phone] Sandoval Boggs MD Unavailable +[phone] Erich Gillette MD Unavailable +[phone] Libertad Bonilla APRN REHAB NURSING TECH Unavailable +[phone] Cheryl Mullen CAREER DEVELOPMENT COUNSELOR REHAB NURSING TECH Unavailable + Cheryl Mullen CAREER DEVELOPMENT COUNSELOR REHAB NURSING TECH Unavailable + Libertad Bonilla CAREER DEVELOPMENT COUNSELOR REHAB NURSING TECH Unavailable +[phone] Essence Wise [facility] Unavailable + [phone] Manish Catherine PA-C Unavailable + [phone] Heidy Harrell DO Unavailable +[phone] Heidy Harrell DO Unavailable +[phone] Essence Wise [facility] Unavailable + [phone] Heidy Harrell DO Unavailable +[phone] Essence Wise [facility] Unavailable +[phone] Essence Wise [facility] Unavailable +[phone] Pablito Paulson MD Unavailable Phuc Cruz MD Unavailable Unavailab Phuc Barraza MD Unavailable Unavailab Claudia Rodrigez APRN REHAB NURSING TECH Unavailable +[phone] Encounter Details Date Type Department Care Team (Late st Contact Info) Description 04/21/2020 Orders Only [facility] [address] [place] [address] Chester Venegas MD [facility] [address] [place] [address] Pre-operative laboratory examination (Primary Dx) [...] AM CDT Legal Sex Male 3:26 AM PULMONARY FUNCTION TECHNOLOGIST Gender Identity Male 04/09/2020 8:36 AM CDT [...] st Contact Info) Description 07/10/2025 12:00 PM PULMONARY FUNCTION TECHNOLOGIST Office Visit [facility] [address] [address] Lary Schmitz APRN REHAB NURSING TECH [address] [facility], [place] [address] documented as of this encounter Results * ABO/Rh type and screen (05/01/2020 9:25 AM CDT) ABO A 05/01/2020 10:[address] [facility] RH(D) Pos [facility] Antibody Screen Neg 05/01/2020 10:[address] [facility] Test Valid Only At [facility] 05/01/2020 9:[address] [facility] Specimen Expires 05/05/2020 05/01/2020 10:[address] [facility] Blood specimen (specimen) 05/01/2020 9:25 AM CDT 05/01/2020 9:26 AM CDT us Chester Venegas MD LAB - BLOOD BANK LALO T ORDER Edited Result - Final [facility] [address] [place] [address], [facility] [phone] documented in this encounter Visit Diagnoses Diagnosis Pre-operative laboratory examination- Primary Pre-procedural laboratory examination documented in this encounter Additional Health Concerns Infection Onset Date Last Indicated Resolved Time Rule Out COVID-19 05/19/2020 05/19/2020 05/21/2020 4:31 PM CDT Assessment Noted Time PHQ-9 Depression Total Score: 12 020 6:56 AM PULMONARY FUNCTION TECHNOLOGIST documented as of this encounter Care Teams French Instructor Relationship Specialty Start Date End Date Andrew Erickson MD PCP - General Family Practice 11/12/17 Sandoval Boggs MD [address] [place] [address] Clinical Neurophysiology 11/03/18 Jordan Erickson MD [facility] [address] [place] [address] 11/03/18 Cheryl Mullen APRN REHAB NURSING TECH [address] [place] [address] Assigned PCP 04/25/20 06/07/20 Libertad Bonilla APRN REHAB NURSING TECH [address] [place] [address] Assigned PCP 06/08/20 09/06/20 Sandoval Boggs MD [address] [place] [address] Assigned Neuroscience Provider 06/13/20 09/19/21 Erich Gillette MD [address] [address] Assigned Sleep Provider 06/13/20 06/12/24 Libertad Bonilla APRN REHAB NURSING TECH [address] [place] [address] Assigned PCP 09/14/20 10/18/20 Cheryl Mullen APRN REHAB NURSING TECH [address] [place] [address] Assigned PCP 09/07/20 09/13/20 Cheryl Mullen APRN REHAB NURSING TECH [address] [place] [address] Assigned PCP 10/19/20 10/25/20 Libertad Bonilla APRN REHAB NURSING TECH [address] [place] [address] Assigned PCP 10/26/20 11/12/20 Essence Wise [facility] [address] [place] [address] Pharmacist Pharmacist 06/01/21 Manish Catherine PA-C [address] [address] Assigned Neuroscience Provider 09/20/21 11/14/21 Heidy Harrell DO [address] [place] [address] MD Neurology 09/28/21 Heidy Harrell DO [address] [place] [address] Assigned Neuroscience Provider 04/17/22 Essence Wise [facility] [address] [place] [address] Assigned MTM Pharmacist 01/16/22 05/07/22 Heidy Harrell DO [address] [place] [address] Assigned Neuroscience Provider 11/15/21 04/16/22 Essence Wise [facility] [address] [place] [address] Assigned MTM Pharmacist 05/19/22 07/01/23 Essence Wise [facility] [address] [place] [address] Assigned MTM Pharmacist 10/14/23 Pablito Paulson MD [address] [place] [address] Assigned Pulmonology Provider 03/13/24 Phuc Cruz MD [address] [place] [address] Cardiovascular Disease 09/20/24 01/02/25 Phuc Cruz MD Assigned Heart and Vascular Provider 10/14/24 01/10/25 Claudia Loya APRN REHAB NURSING TECH [address] [place] [address] Assigned Heart and Vascular Provider 01/11/25 documented as of this encounter
--- OUTSIDE RECORDS SUMMARY | 2025-02-09 00:56 | XMS_ITS | Encounter Summary ---
Author Organization [facility] Address [address] [place] [address] Care Team Providers Care Core Drier Name Role Phone Andrew Erickson MD Primary Care Provider [phone] Sandoval Boggs MD Unavailable [phone] Jordan Erickson MD Unavailable [phone] Sandoval Boggs MD Unavailable [phone] Erich Gillette MD Unavailable +[phone] Essence Wise [facility] Unavailable +[phone] Manish Catherine PA-C Unavailable +[phone] Heidy Harrell DO Unavailable +[phone] Heidy Harrell DO Unavailable +[phone] Essence Wise [facility] Unavailable +[phone] Heidy Harrell DO Unavailable +[phone] Essence Wies [facility] Unavailable +[phone] Essence Wise [facility] Unavailable [phone] Pablito Paulson MD Unavailable Phuc Cruz MD Unavailable Unavailab Phuc Barraza MD Unavailable Unavailab Claudia Rodrigez APRN, CNP Unavailable [phone] Encounter Details Date Type Department Care Team (Late st Contact Info) Description 02/17/[address] [facility] [address] [place] [phone] Sandoval Boggs MD [address] [place] [address] Social History Tobacco Use Types Packs/Day Years Used Date Smoking Tobacco: Never Smokeless Tobacco: Never Alcohol Use Standard Drinks/Week Comments Yes 0 (1 standard drink = 0.6 oz pur e alcohol) occas PHQ-2 Answer Date Recorded PHQ-2 Score 2 08/28/2019 Sex and Gender Information Value Date Recorded Sex Assigned at Male 04/09/2020 8:36 AM CDT Legal Sex Male 3:26 AM TIME BUYER Gender Identity Male 04/09/2020 8:36 AM CDT Sexual Orientation Straight 04/09/2020 8: 36 AM CDT documented as of this encounter Plan of Treatment Upcoming Encounters Date Type Department Care Team (Late st Contact Info) Description 07/10/2025 12:00 PM TIME BUYER Office Visit [facility] [address] [address] Lary Schmitz, [place] [address] [place] [address] documented as of this encounter Visit Diagnoses Not on filedocumented in this encounter Additional Health Concerns Assessment Noted Time PHQ-9 Depression Total Score: 12 020 6:56 AM TIME BUYER documented as of this encounter Care Teams Core Drier Relationship Specialty Start Date End Date Andrew Erickson MD PCP - General Family Practice 11/12/17 Sandoval Boggs MD [address] [place] [address] Clinical Neurophysiology 11/03/18 Jordan Erickson MD [facility] [address] [place] [address] 11/03/18 Sandoval Boggs MD [address] [place] [address] Assigned Neuroscience Provider 06/13/20 09/19/21 Erich Gillette MD [address] [address] Assigned Sleep Provider 06/13/20 06/12/24 Essence Wise [facility] [address] [place] [address] Pharmacist Pharmacist 06/01/21 Manish Catherine PA-C [address] [address] Assigned Neuroscience Provider 09/20/21 11/14/21 Heidy Harrell DO [address] [place] [address] Neurology 09/28/21 Heidy Harrell DO [address] [place] [address] Assigned Neuroscience Provider 04/17/22 Essence Wise [facility] [address] [place] [address] Assigned MTM Pharmacist 01/16/22 05/07/22 Heidy Harrell DO [address] [place] [address] Assigned Neuroscience Provider 11/15/21 04/16/22 Essence Wise [facility] [address] [place] [address] Assigned MTM Pharmacist 05/19/22 07/01/23 Essence Wise [facility] [address] [place] [address] Assigned MTM Pharmacist 10/14/23 Pablito Paulson MD [address] [place] [address] Assigned Pulmonology Provider 03/13/24 Phuc Cruz MD [address] [place] [address] Cardiovascular Disease 09/20/24 01/02/25 Phuc Cruz MD Assigned Heart and Vascular Provider 10/14/24 01/10/25 Claudia Loya APRN GAS GOLF CART REPAIRER [address] [address] Assigned Heart and Vascular Provider 01/11/25 documented as of this encounter
--- OUTSIDE RECORDS SUMMARY | 2025-02-09 00:56 | XMS_ITS | Encounter Summary ---
Author Organization [facility] Address [address] [place] [address] Care Team Providers Care Field Service Specialist Name Role Phone Andrew Erickson MD Primary Care Provider [phone] Sandoval Boggs MD Unavailable [phone] Jordan Erickson MD Unavailable [phone] Cheryl Mullen GLAZE GRINDER TECHNOLOGY ADOPTION MANAGER Unavailable + Libertad Bonilla GLAZE GRINDER TECHNOLOGY ADOPTION MANAGER Unavailable +[phone] Sandoval Boggs MD Unavailable +[phone] Erich Gillette MD Unavailable +[phone] Libertad Bonilla APRN TECHNOLOGY ADOPTION MANAGER Unavailable +[phone] Cheryl Mullen GLAZE GRINDER TECHNOLOGY ADOPTION MANAGER Unavailable + Cheryl Mullen GLAZE GRINDER TECHNOLOGY ADOPTION MANAGER Unavailable + Libertad Bonilla GLAZE GRINDER TECHNOLOGY ADOPTION MANAGER Unavailable +[phone] Essence Wise [facility] Unavailable + [phone] Manish Catherine PA-C Unavailable + [phone] Heidy Harrell DO Unavailable +[phone] Heidy Harrell DO Unavailable +[phone] Essence Wise [facility] Unavailable + [phone] Heidy Harrell DO Unavailable +[phone] Essence Wise [facility] Unavailable [phone] Essence Wise [facility] Unavailable [phone] Pablito Paulson MD Unavailable Phuc Cruz MD Unavailable Unavailab Phuc Barraza MD Unavailable Unavailab Claudia Rodrigez APRN TECHNOLOGY ADOPTION MANAGER Unavailable Encounter Details Date Type Department Care Team (Late st Contact Info) Description 02/07/2020 Orders Only [facility] [address] [place] [address] Skip Carias MD [facility] [address] [place] [address] Pre-operative laboratory examination (Primary Dx) Social [...] AM CDT Legal Sex Male 3:26 AM DITTO MACHINE OPERATOR Gender Identity Male 04/09/2020 8:36 [...] st Contact Info) Description 07/10/2025 12:00 PM DITTO MACHINE OPERATOR Office Visit [facility] [address] [address] Lary Schmitz APRN TECHNOLOGY ADOPTION MANAGER [address] [facility] [place] [address] documented as of this encounter Results * Creatinine (02/12/2020 11:13 AM CDT) Creatinine 0.82 0.66 - 1.25 mg/dL 02/12/2020 11:40 AM CDT [facility] GFR Estimate 89 >60 mL/min/{1. 73_m2} 02/12/2020 11:40 AM CDT [facility] Comment: Non GFR Calc Starting 08/08/2018, serum creatinine based estimated GFR (eGFR) will be calculated using the Chronic Kidney Disease Epidemiology Collaboration (CKD-EPI) equation. GFR Estimate If Black >90 >60 mL/min/{1. 73_m2} 02/12/2020 11:40 AM CDT [facility] Comment: GFR Calc Starting 08/08/2018, serum creatinine based estimated GFR (eGFR) will be calculated using the Chronic Kidney Disease Epidemiology Collaboration (CKD-EPI) equation. Blood specimen (specimen) 02/12/2020 11:13 AM CDT 02/12/2020 11:14 AM CDT us Skip Carias MD LAB - BLOOD ORDERABLES Final Res ult Performing Organization Address City/[facility] Co de Phone Number [facility] [address] [phone] * (ABNORMAL) Potassium (02/12/2020 11:13 AM CDT) Potassium 2.8(L) 3.4 - 5.3 mmol/L 02/12/2020 11:33 AM CDT [facility] Blood specimen (specimen) 02/12/2020 11:13 AM CDT 02/12/2020 11:14 AM CDT us Skip Carias MD LAB - BLOOD ORDERABLES Final Res ult Performing Organization Address City/[facility]/ZIP Co de Phone Number [facility] [address] [place], [place] [address] [phone] * (ABNORMAL) Hemoglobin (02/12/2020 11:13 AM CDT) Hemoglobin 12.9(L) 13.3 - 17.7 g/dL 02/12/2020 11:19 AM CDT [facility] Blood specimen (specimen) 02/12/2020 11:13 AM CDT 02/12/2020 11:14 AM CDT us Skip Carias MD LAB - BLOOD ORDERABLES Final Res ult [facility] [address] [place] [address], [facility] [phone] documented in this encounter Visit Diagnoses Diagnosis Pre-operative laboratory examination- Primary Pre-procedural laboratory examination documented in this encounter Additional Health Concerns Infection Onset Date Last Indicated Resolved Time Rule Out COVID-19 02/11/2020 02/11/2020 02/11/2020 9:11 PM CDT Rule Out COVID-19 05/19/2020 05/19/2020 05/21/2020 4:31 PM CDT Assessment Noted Time PHQ-9 Depression Total Score: 12 020 6:56 AM DITTO MACHINE OPERATOR documented as of this encounter Care Teams Field Service Specialist Relationship Specialty Start Date End Date Andrew Erickson MD PCP - General Family Practice 11/12/17 Sandoval Boggs MD [address] [place] [address] Clinical Neurophysiology 11/03/18 Jordan Erickson MD [address] [address] 11/03/18 Cheryl Mullen APRN TECHNOLOGY ADOPTION MANAGER [address] [place] [address] Assigned PCP 04/25/20 06/07/20 Libertad Bonilla APRN TECHNOLOGY ADOPTION MANAGER [address] [place] [address] Assigned PCP 06/08/20 09/06/20 Sandoval Boggs MD [address] [place] [address] Assigned Neuroscience Provider 06/13/20 09/19/21 Erich Gillette MD [address] [address] Assigned Sleep Provider 06/13/20 06/12/24 Libertad Bonilla APRN TECHNOLOGY ADOPTION MANAGER [address] [place] [address] Assigned PCP 09/14/20 10/18/20 Cheryl Mullen APRN TECHNOLOGY ADOPTION MANAGER [address] [place] [address] Assigned PCP 09/07/20 09/13/20 Cheryl Mullen APRN TECHNOLOGY ADOPTION MANAGER [address] [place] [address] Assigned PCP 10/19/20 10/25/20 Libertad Bonilla APRN TECHNOLOGY ADOPTION MANAGER [address] [place] [address] Assigned PCP 10/26/20 11/12/20 Essence Wise [facility] [address] [place] [address] Pharmacist Pharmacist 06/01/21 Manish Catherine PA-C [address] [address] Assigned Neuroscience Provider 09/20/21 11/14/21 Heidy Harrell DO [address] [place] [address] Neurology 09/28/21 Heidy Harrell DO [address] [place] [address] Assigned Neuroscience Provider 04/17/22 Essence Wise [facility] [address] [place] [address] Assigned MTM Pharmacist 01/16/22 05/07/22 Heidy Harrell DO [address] [place] [address] Assigned Neuroscience Provider 11/15/21 04/16/22 Essence Wise [facility] [address] [place] [address] Assigned MTM Pharmacist 05/19/22 07/01/23 Essence Wise [facility] [address] [place] [address] Assigned MTM Pharmacist 10/14/23 Pablito Paulson MD [address] [place] [address] Assigned Pulmonology Provider 03/13/24 Phuc Cruz MD [address] [place] [address] Cardiovascular Disease 09/20/24 01/02/25 Phuc Cruz MD Assigned Heart and Vascular Provider 10/14/24 01/10/25 Claudia Loya APRN [facility] [address] [place] [address] Assigned Heart and Vascular Provider 01/11/25 documented as of this encounter
--- OUTSIDE RECORDS SUMMARY | 2025-02-09 00:56 | XMS_ITS | Encounter Summary ---
Author Organization [place] Address [address] [facility] [place] [address] Care Team Providers Care Cosmetic Manager Name Role Phone Andrew Erickson MD Primary Care Provider [phone] Sandoval Boggs MD Unavailable [phone] Jordan Erickson MD Unavailable [phone] Essence Wise [facility] Unavailable [phone] Heidy Harrell DO Unavailable [phone] Heidy Harrell DO Unavailable [phone] Essence Wise [facility] Unavailable [phone] Pablito Paulson MD Unavailable Phuc Cruz MD Unavailable Unavailab Phuc Barraza MD Unavailable Unavailab Claudia Rodrigez APRN TABLE COVER FOLDER Unavailable [phone] Encounter Details Date Type Department Care Team (Late st Contact Info) Description 07/26/2024 External Order Results formerly [facility] [address] [place] [address] Outside, Provider Social History Tobacco Use Types [...] CDT Legal Sex Male 3:26 AM MANAGER REGISTRATION Gender Identity Male 04/09/2020 8:36 AM CDT Sexual Orientation Straight 04/09/2020 8: 36 AM CDT documented as of this encounter Plan of Treatment Upcoming Encounters Date Type Department Care Team (Late st Contact Info) Description 07/10/2025 12:00 PM MANAGER REGISTRATION Office Visit [facility] [address] [address] Lary Schmitz, OIL AND GAS WELL TREATMENT OPERATOR TABLE COVER FOLDER [address] [facility] [id number] [place] [address] documented as of this encounter Procedures Procedure Name Priority Date/Time Associated Diagnosis Comments EXTERNAL LAB RESULTS Routine 07/26/2024 10:18 AM MANAGER REGISTRATION BASIC METABOLIC PANEL Routine 07/26/2024 10:18 AM MANAGER REGISTRATION LIPID PROFILE Routine 06/26/2024 10:29 AM MANAGER REGISTRATION HEPATIC FUNCTION PANEL Routine 06/26/2024 10:29 AM MANAGER REGISTRATION BASIC METABOLIC PANEL Routine 06/26/2024 10:29 AM MANAGER REGISTRATION TESTOSTERONE FREE AND TOTAL Routine 06/26/2024 10:28 AM MANAGER REGISTRATION EXTERNAL LAB RESULTS Routine 06/26/2024 10:28 AM MANAGER REGISTRATION LUTEINIZING HORMONE Routine 06/26/2024 1 0:28 AM MANAGER REGISTRATION HCG QUANTITATIVE Routine 06/26/2024 10:28 AM MANAGER REGISTRATION CBC WITH PLATELETS Routine 06/26/2024 10 :28 AM MANAGER REGISTRATION documented in this encounter Results * (ABNORMAL) Basic metabolic panel (07/26/2024 10:18 AM MANAGER REGISTRATION) Sodium (External) 135 135 - 149 mmol/l [...] BLOOD SPECIMEN / Unknown 07/26/2024 10:18 AM MANAGER REGISTRATION Narrative ELVIRAE PFT - 09/26/2024 9:59 AM MANAGER REGISTRATION Verified by Chloe Fan on 09/26/2024. us Provider Outside LAB - BLOOD ORDERABLES Edited R esult - Final NIKOLE PFDouglas NON-INTERFACED (ONBASE SCANS) * External Lab Results (07/26/2024 10:18 AM MANAGER REGISTRATION) Scan Lab Results (External) See Scanned Report NON-INTERFACE D (ONBASE SCANS) Comment:Monoclonal proteins SPEP/JAQUAN 07/26/2024 10:1 8 AM MANAGER REGISTRATION Narrative BREEZE PFT - 09/26/2024 9:59 AM MANAGER REGISTRATION Verified by Chloe Fan on 09/26/2024. us Provider Outside LABORATORY Edited Result - Final Performing Organization Address [facility]/State/ZIP Co de Phone Number NIKOLE PFT NON-INTERFACED (ONBASE SCANS) * (ABNORMAL) Basic metabolic panel (06/26/2024 10:29 AM MANAGER REGISTRATION) Sodium (External) 133(L) 135 - 149 mmol/L [...] BLOOD SPECIMEN / Unknown 06/26/2024 10:29 AM MANAGER REGISTRATION Narrative NIKOLE CANOT - 09/26/2024 10:49 AM MANAGER REGISTRATION Verified by Nieves Arredondo on 09/26/2024. us Provider Outside LAB - BLOOD ORDERABLES Edited R esult - Final NIKOLE PFT NON-INTERFACED (ONBASE SCANS) * Hepatic function panel (06/26/2024 10:29 AM MANAGER REGISTRATION) Protein Total (External) 7.3 6.0 - 8.3 [...] BLOOD SPECIMEN / Unknown 06/26/2024 10:29 AM MANAGER REGISTRATION Narrative BREEZE PFT - 09/26/2024 10:49 AM MANAGER REGISTRATION Verified by Nieves Arredondo on 09/26/2024. Provider Outside LAB - BLOOD ORDERABLES Edited R [employer] NIKOLE PFT NON-INTERFACED (ONBASE SCANS) * Lipid Profile (06/26/2024 10:29 AM MANAGER REGISTRATION) Pathologist [facility] Triglycerides (External) 80 40 - 149 mg/dL NON-INTERFACE D (ONBASE SCANS) Blood BLOOD SPECIMEN / Unknown 06/26/2024 10:29 AM MANAGER REGISTRATION Narrative BREEZE PFT - 09/26/2024 10:49 AM MANAGER REGISTRATION Verified by Nieves Arredondo on 09/26/2024. Provider Outside LAB - BLOOD ORDERABLES Edited [employer] NIKOLE PFT NON-INTERFACED (ONBASE SCANS) * (ABNORMAL) CBC with platelets (06/26/2024 10:28 AM MANAGER REGISTRATION) WBC Count (External) 5.77 4.50 - 11.00 [...] BLOOD SPECIMEN / Unknown 06/26/2024 10:28 AM MANAGER REGISTRATION Narrative BREEZE PFT - 09/26/2024 10:49 AM MANAGER REGISTRATION Verified by Nieves Arredondo on 09/26/2024. us Provider Outside LAB - BLOOD ORDERABLES Edited R esult - Final BREEZE PFT NON-INTERFACED (ONBASE SCANS) * External Lab Results (06/26/2024 10:28 AM MANAGER REGISTRATION) Scan Lab Results (External) See Scanned Report NON-INTERFACE D (ONBASE SCANS) Comment:sex hormone bind vasyl bulin 06/26/2024 10:2 8 AM MANAGER REGISTRATION Narrative BREEZE PFT - 09/26/2024 10:49 AM MANAGER REGISTRATION Verified by Nieves Arredondo on 09/26/2024. us Provider Outside LABORATORY Edited Result - Final BREEZE PFT NON-INTERFACED (ONBASE SCANS) * Testosterone Free and Total (06/26/2024 10:28 AM MANAGER REGISTRATION) Testosterone Free (External) 1.7 1.6 - 2.9 % NON-INTERFACE D (ONBASE SCANS) Blood 06/26/2024 10:2 8 AM MANAGER REGISTRATION Narrative BREEZE PFT - 09/26/2024 10:49 AM MANAGER REGISTRATION Verified by Nieves Arredondo on 09/26/2024. us Provider Outside LAB - BLOOD ORDERABLES Edited R esult - Final BREEZE PFT NON-INTERFACED (ONBASE SCANS) * (ABNORMAL) Luteinizing Hormone (06/26/2024 10:28 AM MANAGER REGISTRATION) Lutropin (External) 37.4(H) 1.7 - 8.6 IU/L NON-INTERFACED (ONBASE SCANS) Blood BLOOD SPECIMEN / Unknown 06/26/2024 10:28 AM MANAGER REGISTRATION Narrative BREEZE PFT - 09/26/2024 10:49 AM MANAGER REGISTRATION Verified by Nieves Arredondo on 09/26/2024. Provider Outside LAB - BLOOD ORDERABLES [facility] BREEZE PFT NON-INTERFACED (ONBASE SCANS) * hCG Quantitative (06/26/2024 10:28 AM MANAGER REGISTRATION) hCG Quantitative 1 0 - 3 IU/L NO N-INTERFACE D (ONBASE SCANS) Blood BLOOD SPECIMEN / Unknown 06/26/2024 10:28 AM MANAGER REGISTRATION Narrative BREEZE PFT - 09/26/2024 10:49 AM MANAGER REGISTRATION Verified by Nieves Arredondo on 09/26/2024. Provider Outside LAB - BLOOD ORDERABLES Edited [facility] BREEZE PFT NON-INTERFACED (ONBASE SCANS) documented in this encounter Visit Diagnoses Not on filedocumented in this encounter Additional Health Concerns Assessment Noted Time PHQ-9 Depression Total Score: 14 021 7:02 AM CDT documented as of this encounter Care Teams Cosmetic Manager Relationship Specialty Start Date End Date Andrew Erickson MD PCP - General Family Practice 11/12/17 Sandoval Boggs MD [address] [place] [address] Clinical Neurophysiology 11/03/18 Jordan Erickson MD [facility] [address] [place] [address] 11/03/18 Essence Wise, [facility] [address] [place] [address] Pharmacist Pharmacist 06/01/21 Heidy Harrell DO [address] [place] [address] Neurology 09/28/21 Heidy Harrell DO [address] [place] [address] Assigned Neuroscience Provider 04/17/22 Essence Wise, [facility] [address] [place] [address] 395[address] Assigned MTM Pharmacist 10/14/23 Pablito Paulson MD [address] [place] [address] Assigned Pulmonology Provider 03/13/24 Phuc Cruz MD [address] [place] [address] Cardiovascular Disease 09/20/24 01/02/25 Phuc Cruz MD Assigned Heart and Vascular Provider 10/14/24 01/10/25 Claudia Loya APRN TABLE COVER FOLDER [address] [place] [address] Assigned Heart and Vascular Provider 01/11/25 documented as of this encounter
--- OUTSIDE RECORDS SUMMARY | 2025-02-09 00:56 | XMS_ITS | Encounter Summary ---
Author Organization [place] Address [address] [place] [address] Care Team Providers Care Deputy Sheriff Court Services Name Role Phone Andrew Erickson MD Primary Care Provider [phone] Sandoval Boggs MD Unavailable [phone] Jordan Erickson MD Unavailable [phone] Erich Gillette MD Unavailable [phone] Essence Wise [facility] Unavailable [phone] Heidy Harrell DO Unavailable [phone] Heidy Harrell DO Unavailable [phone] Essence Wise [facility] Unavailable Essence Wise [facility] Unavailable [phone] Pablito Paulson MD Unavailable Phuc Cruz MD Unavailable Unavailab Phuc Barraza MD Unavailable Unavailab Claudia Rodrigez APRN CUSTOM WOOD STAIR BUILDER Unavailable [phone] Encounter Details Date Type Department Care Team (Late st Contact Info) Description 12/29/2022 [facility] [address] [facility] [address] [place] [address] Essence Wise, [facility] [address] [place] [address] Social History Tobacco Use Types [...] CDT Legal Sex Male 3:26 AM INSPECTOR ALUMINUM BOAT Gender Identity Male 04/09/2020 8:36 AM CDT [...] Contact Info) Description 07/10/2025 12:00 PM INSPECTOR ALUMINUM BOAT Office Visit [facility] [address] [address] Lary Schmitz, MANAGER TALENT CUSTOM WOOD STAIR BUILDER [address] [place], [place] [address], [place] [address] documented as of this encounter Visit Diagnoses Not on filedocumented in this encounter Additional Health Concerns Assessment Noted Time PHQ-9 Depression Total Score: 14 021 7:02 AM CDT documented as of this encounter Care Teams Deputy Sheriff Court Services Relationship Specialty Start Date End Date Andrew Erickson MD PCP - General Family Practice 11/12/17 Sandoval Boggs MD [address] [place] [address] Clinical Neurophysiology 11/03/18 Jordan Erickson MD [address] [place] [address] 11/03/18 Erich Gillette MD [address] [address] Assigned Sleep Provider 06/13/20 06/12/24 Essence Wise [facility] [address] [place] [address] Pharmacist Pharmacist 06/01/21 Heidy Harrell DO [address] [place] [address] Neurology 09/28/21 Heidy Harrell DO [address] [place] [address] Assigned Neuroscience Provider 04/17/22 Essence Wise [facility] [address] [place] [address] Assigned MTM Pharmacist 05/19/22 07/01/23 Essence Wise [facility] [address] [place] [address] Assigned MTM Pharmacist 10/14/23 Pablito Paulson MD [address] [place] [address] Assigned Pulmonology Provider 03/13/24 Phuc Cruz MD [address] [place] [address] Cardiovascular Disease 09/20/24 01/02/25 Phuc Cruz MD Assigned Heart and Vascular Provider 10/14/24 01/10/25 Claudia Loya APRN [facility] [address] [place] [address] Assigned Heart and Vascular Provider 01/11/25 documented as of this encounter
--- OUTSIDE RECORDS SUMMARY | 2025-02-09 00:56 | XMS_ITS | Encounter Summary ---
Author Organization [place] Address [address] [place] [address] Care Team Providers Care Regional Sales Coordinator Name Role Phone Andrew Erickson MD Primary Care Provider [phone] Sandoval Boggs MD Unavailable [phone] Jordan Erickson MD Unavailable [phone] Erich Gillette MD Unavailable [phone] Essence Wise [facility] Unavailable [phone] Heidy Harrell DO Unavailable [phone] Heidy Harrell DO Unavailable [phone] Essence Wise [facility] Unavailable [phone] Essence Wise [facility] Unavailable [phone] Pablito Paulson MD Unavailable Phuc Cruz MD Unavailable Unavailab Phuc Barraza MD Unavailable Unavailab Claudia Rodrigez APRN [employer]UT[employer] EXECUTIVE [employer] SALES Unavailable [phone] Encounter Details Date Type Department Care Team (Late st Contact Info) Description 04/11/2023 [facility] [address] [address] [facility] [...] AM CDT Legal Sex Male 3:26 AM EMOTIONAL DISABILITIES TEACHER Gender Identity Male 04/09/2020 8:36 AM CDT [...] st Contact Info) Description 07/10/2025 12:00 PM EMOTIONAL DISABILITIES TEACHER Office Visit [facility] [address] [address] Lary Schmitz H, BLOOD BANK ATTENDANT SOLUTIONS EXECUTIVE CLOUD SALES [address] [facility] [id number] [place] [address] documented as of this encounter Visit Diagnoses Not on filedocumented in this encounter Additional Health Concerns Assessment Noted Time PHQ-9 Depression Total Score: 14 021 7:02 AM CDT documented as of this encounter Care Teams Regional Sales Coordinator Relationship Specialty Start Date End Date Andrew Erickson MD PCP - General Family Practice 11/12/17 Sandoval Boggs MD [address] [place] [address] [id number] Clinical Neurophysiology 11/03/18 Jordan Erickson MD [address] [address] 11/03/18 Erich Gillette MD [address] [address] Assigned Sleep Provider 06/13/20 06/12/24 Essence Wise [facility] [address] [place] [address] Pharmacist Pharmacist 06/01/21 Heidy Harrell DO [address] [place] [address] Neurology 09/28/21 Heidy Harrell DO [address] [place] [address] Assigned Neuroscience Provider 04/17/22 Essence Wise [facility] [address] [place] [address] Assigned MTM Pharmacist 05/19/22 07/01/23 Essence Wise [facility] [address] [place] [address] Assigned MTM Pharmacist 10/14/23 Pablito Paulson MD [address] [place] [address] Assigned Pulmonology Provider 03/13/24 Phuc Cruz MD [address] [place] [address] Cardiovascular Disease 09/20/24 01/02/25 Phuc Cruz MD Assigned Heart and Vascular Provider 10/14/24 01/10/25 Claudia Loya APRN [employer] EXECUTIVE [employer] SALES [address] [id number] Assigned Heart and Vascular Provider 01/11/25 documented as of this encounter
--- OUTSIDE RECORDS SUMMARY | 2025-02-09 00:57 | XMS_ITS | Encounter Summary ---
Author Organization [place] Address [address] [facility] [place] [address] Care Team Providers Care Outbound Sales Representative Name Role Phone Andrew Erickson MD Primary Care Provider [phone] Sandoval Boggs MD Unavailable [phone] Jordan Erickson MD Unavailable [phone] Essence Wise [facility] Unavailable [phone] Heidy Harrell DO Unavailable [phone] Heidy Harrell DO Unavailable [phone] Essence Wise [facility] Unavailable [phone] Pablito Paulson MD Unavailable Claudia Loya APRN CRYOGENIC TRANSPORT DRIVER Unavailable [phone] Encounter Details Date Type Department Care Team [...] AM CDT Legal Sex Male 3:26 AM CLOTH BOIL OFF MACHINE OPERATOR Gender Identity Male 04/09/2020 8:36 AM CDT Sexual Orientation Straight 04/09/2020 8: 36 AM CDT documented as of this encounter Plan of Treatment Upcoming Encounters Date Type Department Care Team (Late st Contact Info) Description 07/10/2025 12:00 PM CLOTH BOIL OFF MACHINE OPERATOR Office Visit [facility] Neurology [address] [address] Lary Schmitz, COVER STITCH MACHINE OPERATOR CRYOGENIC TRANSPORT DRIVER [address] [id number] [place] [address] documented as of this encounter Visit Diagnoses Not on filedocumented in this encounter Additional Health Concerns Assessment Noted Time PHQ-9 Depression Total Score: 8 11/07/19 25 9:03 AM CDT documented as of this encounter Care Teams Outbound Sales Representative Relationship Specialty Start Date End Date Andrew Erickson MD PCP - General Family Practice 11/12/17 Sandoval Boggs MD [address] [place] [address] Clinical Neurophysiology 11/03/18 Jordan Erickson MD [address] [address] 11/03/18 Essence Wise, [facility] [address] [place] [address] Pharmacist Pharmacist 06/01/21 Heidy Harrell DO [address] [place] [address] Neurology 09/28/21 Heidy Harrell DO [address] [place] [address] Assigned Neuroscience Provider 04/17/22 Essence Wise, [facility] [address] [place] [address] Assigned MTM Pharmacist 10/14/23 Pablito Paulson MD [address] [place] [address] 055915 Assigned Pulmonology Provider 03/13/24 Claudia Loya APRN CRYOGENIC TRANSPORT DRIVER [address] [id number] Assigned Heart and Vascular Provider 01/11/25 documented as of this encounter
--- OUTSIDE RECORDS SUMMARY | 2025-02-09 00:57 | XMS_ITS | Encounter Summary ---
Author Organization [place] Address [address] [facility] [place] [address] Care Team Providers Care Shed Workers Supervisor Name Role Phone Andrew Erickson MD Primary Care Provider [phone] Sandoval Boggs MD Unavailable [phone] Jordan Erickson MD Unavailable [phone] Essence Wise [facility] Unavailable Heidy Harrell DO Unavailable [phone] Heidy aHrrell DO Unavailable [phone] Essence Wise [facility] Unavailable [phone] Pablito Paulson MD Unavailable Phuc Cruz MD Unavailable Unavailab Phuc Barraza MD Unavailable Unavailab Claudia Rodrigez APRN [facility] Unavailable [phone] Encounter Details Date Type Department Care Team (Late st Contact Info) Description 10/23/2024 [facility] Medical Advice [address] [address] Tara Roberson, PT [address] [place] [address] Social History Tobacco Use Types [...] AM CDT Legal Sex Male 3:26 AM CONTACT REPRESENTATIVE Gender Identity Male 04/09/2020 8:36 AM CDT Sexual Orientation Straight 04/09/2020 8: 36 AM CDT documented as of this encounter Plan of Treatment Upcoming Encounters Date Type Department Care Team (Late st Contact Info) Description 07/10/2025 12:00 PM CONTACT REPRESENTATIVE Office Visit [facility]rology Clinic [address] [address] Lary Schmitz, [place] NAVAL SURFACE FIRE SUPPORT PLANNER [address] [place] [address] [id number] [place] [address] documented as of this encounter Visit Diagnoses Not on filedocumented in this encounter Additional Health Concerns Assessment Noted Time PHQ-9 Depression Total Score: 14 021 7:02 AM CDT documented as of this encounter Care Teams Shed Workers Supervisor Relationship Specialty Start Date End Date Andrew Erickson MD PCP - General Family Practice 11/12/17 Sandoval Boggs MD [address] [place] [address]2005 Clinical Neurophysiology 11/03/18 Jordan Erickson MD [facility] [address] [place] [address] 11/03/18 Essence Wise, [facility] [address] [place] [address] Pharmacist Pharmacist 06/01/21 Heidy Harrell DO [address] [place] [address] Neurology 09/28/21 Heidy Harrell DO [address] [place] [address] Assigned Neuroscience Provider 04/17/22 Essence Wise, [facility] [address] [place] [address] Assigned MTM Pharmacist 10/14/23 Pablito Paulson MD [address] [place] [address] Assigned Pulmonology Provider 03/13/24 Phuc Cruz MD [address] [place] [address] Cardiovascular Disease 09/20/24 01/02/25 Phuc Cruz MD Assigned Heart and Vascular Provider 10/14/24 01/10/25 Claudia Loya APRN NAVAL SURFACE FIRE SUPPORT PLANNER [address] [facility] [place] [address] Assigned Heart and Vascular Provider 01/11/25 documented as of this encounter
--- OUTSIDE RECORDS SUMMARY | 2025-02-09 00:57 | XMS_ITS | Encounter Summary ---
Author Organization [place] Address [address] [facility] [place] [address] Care Team Providers Care Swimming Pool Installer And Servicer Name Role Phone Andrew Erickson MD Primary Care Provider [phone] Sandoval Boggs MD Unavailable [phone] Jordan Erickson MD Unavailable [phone] Erich Gillette MD Unavailable [phone] Essence Wise [facility] Unavailable [phone] Heidy Harrell DO Unavailable [phone] Heidy Harrell DO Unavailable [phone] Essence Wise [facility] Unavailable [phone] Pablito Paulson MD Unavailable Phuc Cruz MD Unavailable Unavailab Phuc Barraza MD Unavailable Unavailab Claudia Rodrigez APRN [facility] Unavailable [phone] Encounter Details Date Type Department Care Team (Late st Contact Info) Description 10/21/2023 [facility] Clinic [address] [place] [address] Rosa Reina RN Social History [...] AM CDT Legal Sex Male 3:26 AM RISK PROFESSIONAL Gender Identity Male 04/09/2020 8:36 AM CDT Sexual Orientation Straight 04/09/2020 8: 36 AM CDT documented as of this encounter Plan of Treatment Upcoming Encounters Date Type Department Care Team (Late st Contact Info) Description 07/10/2025 12:00 PM RISK PROFESSIONAL Office Visit [facility] Neurology [address] [address] Lary Schmitz, CURRENCY EXCHANGE SPECIALIST [facility] [address] [facility] [id number] [place], [place] [address] documented as of this encounter Visit Diagnoses Not on filedocumented in this encounter Additional Health Concerns Assessment Noted Time PHQ-9 Depression Total Score: 14 021 7:02 AM CDT documented as of this encounter Care Teams Swimming Pool Installer And Servicer Relationship Specialty Start Date End Date Andrew Erickson MD PCP - General Family Practice 11/12/17 Sandoval Boggs MD [address] [place] [address] Clinical Neurophysiology 11/03/18 Jordan Erickson MD [facility] [address] [place] [address] 11/03/18 Erich Gillette MD [address] [address] Assigned Sleep Provider 06/13/20 06/12/24 Essence Wise [facility] [address] [place] [address] Pharmacist Pharmacist 06/01/21 Heidy Harrell DO [address] [place] [address] Neurology 09/28/21 Heidy Harrell DO [address] [place] [address] Assigned Neuroscience Provider 04/17/22 Essence Wise [facility] [address] [place] [address] Assigned MTM Pharmacist 10/14/23 Pablito Paulson MD [address] [place] [address] Assigned Pulmonology Provider 03/13/24 Phuc Cruz MD [address] [place] [address] Cardiovascular Disease 09/20/24 01/02/25 Phuc Cruz MD Assigned Heart and Vascular Provider 10/14/24 01/10/25 Claudia Loya APRN [facility] [address] [address] Assigned Heart and Vascular Provider 01/11/25 documented as of this encounter
--- OUTSIDE RECORDS SUMMARY | 2025-02-09 00:57 | XMS_ITS | Encounter Summary ---
Author Organization [place] Address [address] [place] [address] Care Team Providers Care Crm Marketing Analyst Name Role Phone Andrew Erickson MD Primary Care Provider [phone] Sandoval Boggs MD Unavailable [phone] Jordan Erickson MD Unavailable +[phone] Libertad Bonilla APRN AGRONOMY SPECIALIST Unavailable +[phone] Sandoval Boggs MD Unavailable +[phone] Erich Gillette MD Unavailable +[phone] Libertad Bonilla APRN AGRONOMY SPECIALIST Unavailable +[phone] Cheryl Mullen PATHOLOGY MANAGER AGRONOMY SPECIALIST Unavailable + Cheryl Mullen PATHOLOGY MANAGER AGRONOMY SPECIALIST Unavailable + Libertad Bonilla APRN AGRONOMY SPECIALIST Unavailable +[phone] Essence Wise [facility] Unavailable + [phone] Manish Catherine PA-C Unavailable + [phone] Heidy Harrell DO Unavailable +[phone] Heidy Harrell DO Unavailable +[phone] Essence Wise [facility] Unavailable +[phone] Heidy Harrell DO Unavailable +[phone] Essence [address] [facility] Unavailable +[phone] Essence Wise [facility] Unavailable +[phone] Pablito Paulson MD Unavailable Phuc Cruz MD Unavailable Unavailab Phuc Barraza MD Unavailable Unavailab kaylah Loya Claudia GAVIRIA AGRONOMY SPECIALIST Unavailable [phone] Reason for Visit * Reason Comments Medication Refill Encounter Details Date Type Department Care Team (Late st Contact Info) Description 06/30/2020 [facility] Geriatric Transitional Care [address] [place] [address] Cheryl Mullen APRN AGRONOMY SPECIALIST [address] [place] [address] Medication Refill Social History Tobacco Use Types Packs/Day Years Used Date Smoking Tobacco: Never Smokeless Tobacco: Never Alcohol Use Standard Drinks/Week Comments Yes 0 (1 standard drink = 0.6 oz pur e alcohol) occas PHQ-2 Answer Date Recorded PHQ-2 Score 2 08/28/2019 Sex and Gender Information Value Date Recorded Sex Assigned at Male 04/09/2020 8:36 AM CDT Legal Sex Male 3:26 AM TIME STUDY 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 No / Unsure 06/30/2020 7:36 AM TIME STUDY TECHNICIAN documented as of this encounter Miscellaneous Notes * Telephone Encounter - Holli Real APRN CNP - 07/01/2020 7:16 PM CST This patient is no longer under our care. [facility] provider only covered the patient whenthey were at a shelter or assisted living facility we provide care at. Please direct this refill request to the patient's current provider. Per [facility] records, that may be Andrew Erickson STUDY TECHNICIAN documented in this encounter Plan of Treatment Upcoming Encounters Date Type Department Care Team (Late st Contact Info) Description 07/10/2025 12:00 PM TIME STUDY TECHNICIAN Office Visit [facility] Neurology Clinic [facility] [address] [place] [address] [phone] Lary Schmitz APRN AGRONOMY SPECIALIST [address] [place] [address] [id number] [place] [address] documented as of this encounter Visit Diagnoses Not on filedocumented in this encounter Additional Health Concerns Assessment Noted Time PHQ-9 Depression Total Score: 12 020 6:56 AM TIME STUDY TECHNICIAN documented as of this encounter Care Teams Crm Marketing Analyst Relationship Specialty Start Date End Date Andrew Erickson MD PCP - General Family Practice 11/12/17 Sandoval Boggs MD [address] [place] [address] Clinical Neurophysiology 11/03/18 Jordan Erickson MD [address] [address] 11/03/18 Libertad Bonilla APRN AGRONOMY SPECIALIST [address] [place] [address] Assigned PCP 06/08/20 09/06/20 Sandoval Boggs MD [address] [place] [address] Assigned Neuroscience Provider 06/13/20 09/19/21 Erich Gillette MD [address] [facility] [address] [place] [address] Assigned Sleep Provider 06/13/20 06/12/24 Libertad Bonilla APRN AGRONOMY SPECIALIST [address] [place] [address] Assigned PCP 09/14/20 10/18/20 Cheryl Mullen APRN AGRONOMY SPECIALIST [address] [place] [address] Assigned PCP 09/07/20 09/13/20 Cheryl Mullen APRN AGRONOMY SPECIALIST [address] [place] [address] Assigned PCP 10/19/20 10/25/20 Libertad Bonilla APRN AGRONOMY SPECIALIST [address] [place] [address] Assigned PCP 10/26/20 11/12/20 Essence Wise, [facility] [address] [place] [address] Pharmacist Pharmacist 06/01/21 Manish Catherine PA-C [address] [facility] [address] [place] [address] [place] [address] Assigned Neuroscience Provider 09/20/21 11/14/21 Heidy Harrell DO [address] [place] [address] Neurology 09/28/21 Heidy Harrell DO [address] [place] [address] Assigned Neuroscience Provider 04/17/[address] [facility] [address] [place] [address] Assigned MTM Pharmacist 01/16/22 05/07/22 Heidy Harrell DO [address] [place] [address] Assigned Neuroscience Provider 11/15/21 04/16/22 Essence [address] [facility] [address] [place] [address] Assigned MTM Pharmacist 05/19/22 07/01/23 Essence [address] [facility] [address] [place] [address] Assigned MTM Pharmacist 10/14/23 Pablito Paulson MD [address] [place] [address] Assigned Pulmonology Provider 03/13/24 Phuc Cruz MD [address] [place] [address] Cardiovascular Disease 09/20/24 01/02/25 Phuc Cruz MD Assigned Heart and Vascular Provider 10/14/24 01/10/25 Claudia Loya APRN AGRONOMY SPECIALIST [address] [place] [place] [address] Assigned Heart and Vascular Provider 01/11/25 documented as of this encounter
--- OUTSIDE RECORDS SUMMARY | 2025-02-09 00:57 | XMS_ITS | Encounter Summary ---
Author Organization [place] Address [address] [facility] [place] [address] Care Team Providers Care Program Director/Traffic Director Name Role Phone Andrew Erickson MD Primary Care Provider [phone] Sandoval Boggs MD Unavailable [phone] Jordan Erickson MD Unavailable [phone] Essence Wise [facility] Unavailable +[phone] Heidy Harrell DO Unavailable +[phone] Heidy Harrell DO Unavailable +[phone] Essence Wise [facility] Unavailable [phone] Pablito Paulson MD Unavailable Claudia Loya APRN RURAL MAIL CARRIER Unavailable [phone] Encounter Details Date Type Department Care Team [...] AM CDT Legal Sex Male 3:26 AM BARBECUE COOK Gender Identity Male 04/09/2020 8:36 AM CDT Sexual Orientation Straight 04/09/2020 8: 36 AM CDT documented as of this encounter Plan of Treatment Upcoming Encounters Date Type Department Care Team (Late st Contact Info) Description 07/10/2025 12:00 PM BARBECUE COOK Office Visit [facility] Neurology [address] [address] Lary Schmitz, [place] RURAL MAIL CARRIER [address] [facility] [id number] [place] [address] documented as of this encounter Visit Diagnoses Not on filedocumented in this encounter Additional Health Concerns Assessment Noted Time PHQ-9 Depression Total Score: 8 11/07/19 25 9:03 AM CDT documented as of this encounter Care Teams Program Director/Traffic Director Relationship Specialty Start Date End Date Andrew Erickson MD PCP - General Family Practice 11/12/17 Sandoval Boggs MD [address] [place] [address] Clinical Neurophysiology 11/03/18 Jordan Erickson MD [address] [address] 11/03/18 Essence Wise, [facility] [address] [place] [address] Pharmacist Pharmacist 06/01/21 Heidy Harrell DO [address] [place] [address] Neurology 09/28/21 Heidy Harrell DO [address] [place] [address] Assigned Neuroscience Provider 04/17/22 Essence Wise, [facility] [address] [place] [address] Assigned MTM Pharmacist 10/14/23 Pablito Paulson MD [address] [place] [address] Assigned Pulmonology Provider 03/13/24 Claudia Loya APRN RURAL MAIL CARRIER [address] [place] [place] [id number] Assigned Heart and Vascular Provider 01/11/25 documented as of this encounter
--- OUTSIDE RECORDS SUMMARY | 2025-02-09 00:57 | XMS_ITS ---
Author Name Interface, [id number] Address [address] [facility] [address] [address] [facility] On[facility] Address [address] [facility] [address] [address] Care Team Providers Care Globe Cleaner Name Role Phone Isaac Ray Unavailable Unavailab [...] Ordered By Specimen Source Lab Address 06/26 [facility] other lab See dye colorist dyer d 06/26 [facility] other lab See dye colorist dyer d 06/26 [facility] other lab See dye colorist dyer d 06/26 [facility] other lab See dye colorist dyer d Medications Date Name Route Dose Frequency Instructions Start Date End Date Status Buspirone Oral TID ac tive Cwvpzm-Ziolgnqq-Fh ylase Oral Delayed Release 36,000-114,000-180 ,000 unit [...]
--- OUTSIDE RECORDS SUMMARY | 2025-02-09 00:57 | XMS_ITS | Encounter Summary ---
Author Organization [place] Address [address] [place] [address] Care Team Providers Care Aquatic Instructor Name Role Phone Andrew Erickson MD Primary Care Provider [phone] Sandoval Boggs MD Unavailable [phone] Jordan Erickson MD Unavailable [phone] LIAISON Unavailable +08-27 Sandoval Boggs MD Unavailable +[phone] Erich Gillette MD Unavailable +[phone] L[place] Unavailable +[phone] Cheryl Mullen MEDICAL COLLECTIONS REPRESENTATIVE COURT LIA[place] Unavailable + Cheryl Mullen MEDICAL COLLECTIONS REPRESENTATIVE COURT LIAISON Unavailable + Libertad Bonilla APRN COURT LIAISON Unavailable +08-27 Essence Wise [facility] Unavailable + [phone] Manish Catherine PA-C Unavailable + [phone] Heidy Harrell DO Unavailable +[phone] Heidy Harrell DO Unavailable +[phone] Essence Wise [facility] Unavailable +[phone] Heidy Harrell DO Unavailable +[phone] Essence Wise [facility] Unavailable +[phone] Essence Wise [facility] Unavailable + [phone] Pablito Paulson MD Unavailable Phuc Cruz MD Unavailable Unavailab Phuc Barraza MD Unavailable Unavailab Claudia Rodrigez APRN COURT LIAISON Unavailable [phone] Reason for Visit * Reason Comments Medication Refill Encounter Details Date Type Department Care Team (Late st Contact Info) Description 06/09/2020 Refill [facility] Geriatric Transitional Care [address] [place] [address] LIAISON [address] [place] [address] Medication Refill Social History Tobacco Use Types Packs/Day Years Used Date Smoking Tobacco: Never Smokeless Tobacco: Never Alcohol Use Standard Drinks/Week Comments Yes 0 (1 standard drink = 0.6 oz pur e alcohol) occas PHQ-2 Answer Date Recorded PHQ-2 Score 2 08/28/2019 Sex and Gender Information Value Date Recorded Sex Assigned at Male 04/09/2020 8:36 AM CDT Legal Sex Male 3:26 AM FIREARMS SALES ASSOCIATE Gender Identity Male 04/09/2020 8:36 AM [...] st Contact Info) Description 07/10/2025 12:00 PM FIREARMS SALES ASSOCIATE Office Visit [facility] Neurology Clinic [address] [address] Lary Schmitz, MEDICAL COLLECTIONS REPRESENTATIVE COURT L[place]ISON [address] [facility] [facility] [id number] [place], [place] [address] documented as of this encounter Visit Diagnoses Diagnosis S/P lumbar fusion Arthrodesis status documented in this encounter Additional Health Concerns Assessment Noted Time PHQ-9 Depression Total Score: 12 020 6:56 AM FIREARMS SALES ASSOCIATE documented as of this encounter Care Teams Aquatic Instructor Relationship Specialty Start Date End Date Andrew Erickson MD PCP - General Family Practice 11/12/17 Sandoval Boggs MD [address] [place] [address] Clinical Neurophysiology 11/03/18 Jordan Erickson MD [address] [address] 11/03/[address] [place] [address] [place] [address] Assigned PCP 06/08/20 09/06/20 Sandoval Boggs MD [address] [place] [address] Assigned Neuroscience Provider 06/13/20 09/19/21 Erich Gillette MD [address] [address] Assigned Sleep Provider 06/13/20 06/12/[address] [facility] [address] [place] [address] Assigned PCP 09/14/20 10/18/[address] [facility] [address] [place] [address] Assigned PCP 09/07/20 09/13/[address] [facility] [address] [place] [address] Assigned PCP 10/19/20 10/25/[address] [facility] [address] [place] [address] Assigned PCP 10/26/20 11/12/20 Essence Wise [facility] [address] [place] [address] Pharmacist Pharmacist 06/01/21 Manish Catherine PA-C [address] [facility] [address] [address] Assigned Neuroscience Provider 09/20/21 11/14/21 Heidy Harrell DO [address] [place] [address] Neurology 09/28/21 Heidy Harrell DO [address] [place] [address] Assigned Neuroscience Provider 04/17/22 Essence Wise [facility] [address] [place] [address] Assigned MTM Pharmacist 01/16/22 05/07/22 Heidy Harrell DO [address] [place] [address] Assigned Neuroscience Provider 11/15/21 04/16/22 Essence Wise [facility] [address] [place] [address] Assigned MTM Pharmacist 05/19/22 07/01/23 Essence Wise [facility] [address] [place] [address] Assigned MTM Pharmacist 10/14/23 Pablito Paulson MD [address] [place] [address] Assigned Pulmonology Provider 03/13/24 Phuc Cruz MD [address] [place] [address] Cardiovascular Disease 09/20/24 01/02/25 Phuc Cruz MD Assigned Heart and Vascular Provider 10/14/24 01/10/[address] LIAISON [address] [place] [address] Assigned Heart and Vascular Provider 01/11/25 documented as of this encounter
--- OUTSIDE RECORDS SUMMARY | 2025-02-09 00:57 | XMS_ITS | CCD ---
Author Name Interface, [id number] l[facility] Address [address] [facility] [address] [place] [address] [facility] Address [facility] [address] [place] [address] Care Team Providers Care Waxing Machine Operator Name Role Phone Shruti Page Unavailable Unavailable Oscar Nguyen Unavailable Unavailable Isaac Ray Unavailable Unavailab le Allergies and Adverse Reactions Care Plan Reason for Visit Encounters Immunizations Diagnostic Results Medications Problems Procedures Social History Vital Signs
--- OUTSIDE RECORDS SUMMARY | 2025-02-09 00:57 | XMS_ITS | Encounter Summary ---
Author Organization [place] Address [address] [facility] [place] [address] Care Team Providers Care Assistant Hall Director Name Role Phone Andrew Erickson MD Primary Care Provider [phone] Sandoval Boggs MD Unavailable [phone] Jordan Erickson MD Unavailable [phone] Erich Gillette MD Unavailable +[phone] [facility] Unavailable [phone] Heidy Harrell DO Unavailable +[phone] Heidy Harrell DO Unavailable [phone] [facility] Unavailable [phone] Pablito Paulson MD Unavailable Phuc Cruz MD Unavailable Unavailab Phuc Barraza MD Unavailable Unavailab Claudia Rodrigze APRN FIRST AID INSTRUCTOR Unavailable [phone] Encounter Details Date Type Department Care Team (Late st Contact Info) Description 10/05/2023 [facility] Multiple Sclerosis Clinic [address] [address] Essence Wise, [address] [address] Social History Tobacco Use Types [...] AM CDT Legal Sex Male 3:26 AM SOCIOLOGY TEACHER Gender Identity Male 04/09/2020 8:36 AM CDT Sexual Orientation Straight 04/09/2020 8: 36 AM CDT documented as of this encounter Plan of Treatment Upcoming Encounters Date Type Department Care Team (Late st Contact Info) Description 07/10/2025 12:00 PM SOCIOLOGY TEACHER Office Visit [facility] Neurology Clinic [address] [phone] Lary Schmitz, LAND LAW EXAMINER [address] [id number] [address] documented as of this encounter Visit Diagnoses Not on filedocumented in this encounter Additional Health Concerns Assessment Noted Time PHQ-9 Depression Total Score: 14 021 7:02 AM CDT documented as of this encounter Care Teams Assistant Hall Director Relationship Specialty Start Date End Date Andrew Erickson MD PCP - General Family Practice 11/12/17 Sandoval Boggs MD [address] [place] [address] Clinical Neurophysiology 11/03/18 Jordan Erickson MD [address] [address] 11/03/18 Erich Gillette MD [address] [facility] [address] [place] [address] Assigned Sleep Provider 06/13/20 06/12/[address] [facility] [address] [place] [address] Pharmacist Pharmacist 06/01/21 Heidy Harrell DO [address] [place] [address] MD Neurology 09/28/21 Heidy Harrell DO [address] [place] [address] Assigned Neuroscience Provider 04/17/[address] [facility] [address] [place] [address] Assigned MTM Pharmacist 10/14/23 Pablito Paulson MD [address] [place] [address] Assigned Pulmonology Provider 03/13/24 Phuc Cruz MD [address] [place] [address] Cardiovascular Disease 09/20/24 01/02/25 Phuc Cruz MD Assigned Heart and Vascular Provider 10/14/24 01/10/25 Claudia Loya APRN FIRST AID INSTRUCTOR [address] [place] [address] Assigned Heart and Vascular Provider 01/11/25 documented as of this encounter
--- OUTSIDE RECORDS SUMMARY | 2025-02-09 00:57 | XMS_ITS | Encounter Summary ---
Author Organization [place] Address [address] [facility] [place] [address] Care Team Providers Care Pattern Chain Maker Supervisor Name Role Phone Andrew Erickson MD Primary Care Provider [phone] Sandoval Boggs MD Unavailable +[phone] Jordan Erickson MD Unavailable [phone] Erich Gillette MD Unavailable +[phone] Essence Wise [facility] Unavailable [phone] Heidy Harrell DO Unavailable [phone] Heidy Harrell DO Unavailable [phone] Essence Wise [facility] Unavailable [phone] Pablito Paulson MD Unavailable Phuc Cruz MD Unavailable Unavailab Phuc Barraza MD Unavailable Unavailab Claudia Rodrigez APRN FEDERAL JAVA DEVELOPER Unavailable [phone] Encounter Details Date Type Department Care Team (Late st Contact Info) Description 11/14/2023 [facility] Multiple Sclerosis Clinic [address] [address] Essence Wise, [address] [address] Social History Tobacco Use Types [...] AM CDT Legal Sex Male 3:26 AM TAVERN KEEPER Gender Identity Male 04/09/2020 8:36 AM CDT Sexual Orientation Straight 04/09/2020 8: 36 AM CDT documented as of this encounter Plan of Treatment Upcoming Encounters Date Type Department Care Team (Late st Contact Info) Description 07/10/2025 12:00 PM TAVERN KEEPER Office Visit [facility] Neurology Clinic [address] [phone] Lary Schmitz, RAIL DIRECTOR [address] [id number] [place] [address] documented as of this encounter Visit Diagnoses Not on filedocumented in this encounter Additional Health Concerns Assessment Noted Time PHQ-9 Depression Total Score: 14 021 7:02 AM CDT documented as of this encounter Care Teams Pattern Chain Maker Supervisor Relationship Specialty Start Date End Date Andrew Erickson MD PCP - General Family Practice 11/12/17 Sandoval Boggs MD [address] [place] [address] Clinical Neurophysiology 11/03/18 Jordan Erickson MD [address] [address] 11/03/18 Erich Gillette MD [address] [facility] [address] [place] [address] Assigned Sleep Provider 06/13/20 06/12/24 Essence Wise [facility] [address] [place] [address] Pharmacist Pharmacist 06/01/21 Heidy Harrell DO [address] [place] [address] MD Neurology 09/28/21 Heidy Harrell DO [address] [place] [address] Assigned Neuroscience Provider 04/17/22 Essence Wise [facility] [address] [place] [address] Assigned MTM Pharmacist 10/14/23 Pablito Paulson MD [address] [place] [address] Assigned Pulmonology Provider 03/13/24 Phuc Cruz MD [address] [place] [address] Cardiovascular Disease 09/20/24 01/02/25 Phuc Cruz MD Assigned Heart and Vascular Provider 10/14/24 01/10/25 Claudia Loya APRN FEDERAL JAVA DEVELOPER [address] [place] [address] Assigned Heart and Vascular Provider 01/11/25 documented as of this encounter
--- OUTSIDE RECORDS SUMMARY | 2025-02-09 00:57 | XMS_ITS | Encounter Summary ---
Author Organization [place] Address [address] [facility] [place] [address] Care Team Providers Care Fitness Attendant Name Role Phone Andrew Erickson MD Primary Care Provider [phone] Sandoval Boggs MD Unavailable [phone] Jordan Erickson MD Unavailable [phone] Essence Wise [facility] Unavailable [phone] Heidy Harrell DO Unavailable [phone] Heidy Harrell DO Unavailable [phone] Essence Wise [facility] Unavailable [phone] Pablito Paulson MD Unavailable Phuc Cruz MD Unavailable Unavailab Phuc Barraza MD Unavailable Unavailab Claudia Rodrigez APRN [facility] Unavailable [phone] Reason for Visit * Reason Onset Date Comments Symptoms 11/19/2024 Red-Flag - [place] john BP Encounter Details Date Type Department Care Team (Late st Contact Info) Description 11/19/2024 Telephone [facility] Heart [address] [place] [address] Phuc Cruz MD Symptoms (Red-Flag [...] AM CDT Legal Sex Male 3:26 AM HEEL DIPPER Gender Identity Male 04/09/2020 8:36 AM CDT Sexual Orientation Straight 04/09/2020 8: 36 AM CDT documented as of this encounter Miscellaneous Notes * Telephone Encounter - Sandra Marinelli - 11/19/2024 3:49 PM CDT [facility] Call Center Phone Message May a detailed [...] st Contact Info) Description 07/10/2025 12:00 PM HEEL DIPPER Office Visit [facility] Neurology Clinic [address] [address] Lary Schmitz, REGISTERED DIET TECHNICIAN [address], [place] [address] documented as of this encounter Visit Diagnoses Not on filedocumented in this encounter Additional Health Concerns Assessment Noted Time PHQ-9 Depression Total Score: 8 11/07/19 25 9:03 AM CDT documented as of this encounter Care Teams Fitness Attendant Relationship Specialty Start Date End Date Andrew Erickson MD PCP - General Family Practice 11/12/17 Sandoval Boggs MD [address] [place] [address] Clinical Neurophysiology 11/03/18 Jordan Erickson MD [address] [address] 11/03/18 Essence Wise [facility] [address] [place] [address] Pharmacist Pharmacist 06/01/21 Heidy Harrell DO [address] [place] [address] Neurology 09/28/21 Heidy Harrell DO [address] [place] [address] Assigned Neuroscience Provider 04/17/22 Essence Wise [facility] [address] [place] [address] Assigned MTM Pharmacist 10/14/23 Pablito Paulson MD [address] [place] [address] Assigned Pulmonology Provider 03/13/24 Phuc Cruz MD [address] [place] [address] Cardiovascular Disease 09/20/24 01/02/25 Phuc Cruz MD Assigned Heart and Vascular Provider 10/14/24 01/10/25 Claudia Loya APRN SIGNAL INSPECTOR [address] [place] [address] Assigned Heart and Vascular Provider 01/11/25 documented as of this encounter
--- OUTSIDE RECORDS SUMMARY | 2025-02-09 00:57 | XMS_ITS ---
Author Name Interface, [id number] lity Address [address] [facility] [address] [place] [address] [facility] Address [address] [facility] [address] [place] [address] Care Team Providers Care Canal Lock Tender Chief Operator Name Role Phone Isaac Ray Unavailable Unavailab [...] Ordered By Specimen Source Lab Address 06[place]26 [facility] [place] See nursing agency manager d 06/26 [facility] [place] See nursing agency manager d 06/26 [facility] [place] See nursing agency manager d 06/26 [facility] [place] See nursing agency manager d Medications Date Name Route Dose Frequency Instructions Start Date End Date Status Buspirone Oral TID ac tive Tmofhu-Ufjwwzgh-Vi ylase Oral Delayed Release 36,000-114,000-180 ,000 unit [...]
--- OUTSIDE RECORDS SUMMARY | 2025-02-09 00:57 | XMS_ITS ---
Author Name Interface, [id number] lity Address [address] [facility] [address] [place] [address] Organization [facility] Address [address] [facility] [address] [place] [address] Care Team Providers Care Business Solutions Director Name Role Phone PageHoracioShruti Unavailable Unavailable Allergies and Adverse Reactions Medication/Group Name Reaction Severity Date No known allergies Plan Date Type Value 07/10/2024 APPOINTMENT OV 30 MIN Reason for Visit OV 30 MIN Encounters Date Name 07/10/2024 Gynecomastia Medications Date Name Route Dose Frequency Instructions Start Date End Date Status Buspirone Oral TID ac tive Gblfdh-Ikykteth-Uu ylase Oral Delayed Release 36,000-114,000-180 ,000 unit [...] signed by Shruti Page DO 07/10/2024 09:35 BATTERY PLATE REMOVER
--- OUTSIDE RECORDS SUMMARY | 2025-02-09 00:57 | XMS_ITS | Encounter Summary ---
Author Organization [place] Address [address] [place] [address] Care Team Providers Care Film Color Tester Name Role Phone Andrew Erickson MD Primary Care Provider [phone] Sandoval Boggs MD Unavailable [phone] Jordan Erickson MD Unavailable [phone] Essence Wise [facility] Unavailable [phone] Heidy Harrell DO Unavailable [phone] Heidy Harrell DO Unavailable [phone] Essence Wise [facility] Unavailable +[phone] Pablito Paulson MD Unavailable Claudia Loya APRN ELECTRONICS TEACHER Unavailable [phone] Encounter Details Date Type Department Care Team (Late st Contact Info) Description 01/22/2025 Telephone [facility] Heart [address] [place] [address] Tami Agarwal, SOHAIL Social History [...] AM CDT 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 [address] documented as of this encounter Results * [...] 01/28/2025 10:54 AM CDT Claudia Loya APRN ELECTRONICS TEACHER LAB - BLOOD ORDERABLES Final Result LABORATORY [facility] Acute Care Lab [address] Lab (1st floor, no room number) [place] [address], [facility] documented in this encounter Visit Diagnoses Diagnosis Hyponatremia- Primary Hyposmolality and/or hyponatremia Primary hypertension Unspecified essential hypertension documented in this encounter Additional Health Concerns Assessment Noted Time PHQ-9 Depression Total Score: 8 11/07/19 25 9:03 AM CDT documented as of this encounter Care Teams Film Color Tester Relationship Specialty Start Date End Date Andrew Erickson MD PCP - General Family Practice 11/12/17 Sandoval Boggs MD [address] [place] [address] [id number] Clinical Neurophysiology 11/03/18 Jordan Erickson MD [address] [address] 11/03/18 Essence Wise, [facility] [address] [place] [address] Pharmacist Pharmacist 06/01/21 Heidy Harrell DO [address] [place] [address] Neurology 09/28/21 Heidy Harrell DO [address] [place] [address] Assigned Neuroscience Provider 04/17/22 Essence Wise [facility] [address] [place] [address] Assigned MTM Pharmacist 10/14/23 Pablito Paulson MD [address] [place] [address] Assigned Pulmonology Provider 03/13/24 Claudia Loya APRN ELECTRONICS TEACHER [address] [address] Assigned Heart and Vascular Provider 01/11/25 documented as of this encounter
--- OUTSIDE RECORDS SUMMARY | 2025-02-09 00:57 | XMS_ITS | Encounter Summary ---
Author Organization [place] Address [address] [facility] [place] [address] Care Team Providers Care Welding Systems And Equipment Repairer Name Role Phone Andrew Erickson MD Primary Care Provider [phone] Sandoval Boggs MD Unavailable [phone] Jordan Erickson MD Unavailable [phone] Erich Gillette MD Unavailable [phone] Essence Wise [facility] Unavailable [phone] Heidy Harrell DO Unavailable [phone] Heidy Harrell DO Unavailable [phone] Essence Wise [facility] Unavailable [phone] Pablito Paulson MD Unavailable Phuc Cruz MD Unavailable Unavailab Phuc Barraza MD Unavailable Unavailab Claudia Rodrigez APRN IRON GUARDRAIL INSTALLER Unavailable [phone] Encounter Details Date Type Department Care Team (Late st Contact Info) Description 11/08/2023 [facility] Neu[facility] Clinic [address] [place] [address] Maxine Manning, RN Social History [...] CDT 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 Gender Identity Male 04/09/2020 8:36 AM CDT Sexual Orientation Straight 04/09/2020 8: 36 AM CDT documented as of this encounter Plan of Treatment Upcoming Encounters Date Type Department Care Team (Late st Contact Info) Description 07/10/2025 12:00 PM PUBLIC HEALTH ADMINISTRATOR Office Visit [facility] Neurology [address] [address] Lary Schmitz, CORE WINDER IRON GUARDRAIL INSTALLER [address] [facility] [id number] [place] [address] documented as of this encounter Visit Diagnoses Not on filedocumented in this encounter Additional Health Concerns Assessment Noted Time PHQ-9 Depression Total Score: 14 021 7:02 AM CDT documented as of this encounter Care Teams Welding Systems And Equipment Repairer Relationship Specialty Start Date End Date Andrew Erickson MD PCP - General Family Practice 11/12/17 Sandoval Boggs MD [address] [place] [address] Clinical Neurophysiology 11/03/18 Jordan Erickson MD [facility] [address] [place] [address] 11/03/18 Erich Gillette MD [address] [address] Assigned Sleep Provider 06/13/20 06/12/24 Essence Wise [facility] [address] [place] [address] Pharmacist Pharmacist 06/01/21 Heidy Harrell DO [address] [place] [address] Neurology 09/28/21 Heidy Harrell DO [address] [place] [address] Assigned Neuroscience Provider 04/17/22 Essence Wise [facility] [address] [place] [address] Assigned MTM Pharmacist 10/14/23 Pablito Paulson MD [address] [place] [address] Assigned Pulmonology Provider 03/13/24 Phuc Cruz MD [address] [place] [address] Cardiovascular Disease 09/20/24 01/02/25 Phuc Cruz MD Assigned Heart and Vascular Provider 10/14/24 01/10/25 Claudia Loya APRN IRON GUARDRAIL INSTALLER [address] [address] Assigned Heart and Vascular Provider 01/11/25 documented as of this encounter
--- OUTSIDE RECORDS SUMMARY | 2025-02-09 00:57 | XMS_ITS | Encounter Summary ---
Author Organization [facility] Address [address] [place] [address] Care Team Providers Care In Flight Refueling Operator Name Role Phone Andrew Erickson MD Primary Care Provider [phone] Sandoval Boggs MD Unavailable [phone] Jordan Erickson MD Unavailable [phone] Cheryl Mullen REFUND CLERK SAFETY ADMIN ASSISTANT Unavailable + Libertad Bonilla REFUND CLERK SAFETY ADMIN ASSISTANT Unavailable [phone] Sandoval Boggs MD Unavailable [phone] Erich Gillette MD Unavailable +[phone] Libertad Bonilla APRN SAFETY ADMIN ASSISTANT Unavailable +[phone] Cheryl Mullen REFUND CLERK SAFETY ADMIN ASSISTANT Unavailable + Cheryl Mullen REFUND CLERK SAFETY ADMIN ASSISTANT Unavailable + Libertad Bonilla REFUND CLERK SAFETY ADMIN ASSISTANT Unavailable +[phone] Essence Wise [facility] Unavailable + [phone] Manish Catherine PA-C Unavailable + [phone] Heidy Harrell DO Unavailable [phone] Heidy Harrell DO Unavailable [phone] Essence Wise [facility] Unavailable + [phone] Heidy Harrell DO Unavailable [phone] Essence Wise [facility] Unavailable +[phone] Essence Wise [facility] Unavailable [phone] Pablito Paulson MD Unavailable Phuc Cruz MD Unavailable Unavailab Phuc Barraza MD Unavailable Unavailab Claudia Rodrigez APRN SAFETY ADMIN ASSISTANT Unavailable [phone] Reason for Visit * Reason Comments Medication Refill Encounter Details Date Type Department Care Team (Late st Contact Info) Description 06/03/2020 Refill [facility] Geriatric Transitional Care [address] [place] [address] Cheryl Mullen APRN SAFETY ADMIN ASSISTANT [address] [place], [place] [id number] Medication Refill Social History Tobacco Use Types Packs/Day Years Used Date Smoking Tobacco: Never Smokeless Tobacco: Never Alcohol Use Standard Drinks/Week Comments Yes 0 (1 standard drink = 0.6 oz pur e alcohol) occas PHQ-2 Answer Date Recorded PHQ-2 Score 2 08/28/2019 Sex and Gender Information Value Date Recorded Sex Assigned at Male 04/09/2020 8:36 AM CDT 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 No / Unsure 05/20/2020 9:24 AM CDT documented as of this encounter Miscellaneous Notes * Telephone Encounter - Holli Real APRN SAFETY ADMIN ASSISTANT - 06/04/2020 7:59 AM CDT This patient is no longer under our care. [facility] provider only covered the patient whenthey were at a correction or assisted living facility we provide care at. Please direct this refill request to the patient's current provider. Per [facility] records, that may be Andrew Erickson. documented in this encounter Plan of Treatment Upcoming Encounters Date Type Department Care Team (Late st Contact Info) Description 07/10/2025 12:00 PM CAMERA OPERATOR Office Visit [facility] Neurology Clinic [address] [phone] Lary Schmitz APRN SAFETY ADMIN ASSISTANT [address] [facility] [id number] [place] [address] documented as of this encounter Visit Diagnoses Diagnosis S/P lumbar fusion Arthrodesis status documented in this encounter Additional Health Concerns Assessment Noted Time PHQ-9 Depression Total Score: 12 020 6:56 AM CAMERA OPERATOR documented as of this encounter Care Teams In Flight Refueling Operator Relationship Specialty Start Date End Date Andrew Erickson MD PCP - General Family Practice 11/12/17 Sandoval Boggs MD [address] [place] [address] Clinical Neurophysiology 11/03/18 Jordan Erickson MD [facility] [address] [place] [address] 11/03/18 Cheryl Mullen APRN SAFETY ADMIN ASSISTANT [facility] [place] [address] Assigned PCP 04/25/20 06/07/20 Libertad Bonilla APRN SAFETY ADMIN ASSISTANT [address] [place] [address] Assigned PCP 06/08/20 09/06/20 Sandoval Boggs MD [address] [place] [address] Assigned Neuroscience Provider 06/13/20 09/19/21 Erich Gillette MD [address] [place], [place] [address] Assigned Sleep Provider 06/13/20 06/12/24 Libertad Bonilla APRN SAFETY ADMIN ASSISTANT [address] [place] [address] Assigned PCP 09/14/20 10/18/20 Cheryl Mullen APRN SAFETY ADMIN ASSISTANT [address] [place] [address] Assigned PCP 09/07/20 09/13/20 Cheryl Mullen APRN SAFETY ADMIN ASSISTANT [address] [place] [address] Assigned PCP 10/19/20 10/25/20 Libertad Bonilla APRN SAFETY ADMIN ASSISTANT [address] [place] [address] Assigned PCP 10/26/20 11/12/20 Essence Wise [facility] [address] [place] [address] Pharmacist Pharmacist 06/01/21 Manish Catherine PA-C [address] [place] [address] Assigned Neuroscience Provider 09/20/21 11/14/21 Heidy Harrell DO [address] [place] [address] Neurology 09/28/21 Heidy Harrell DO [address] [place] [address] Assigned Neuroscience Provider 04/17/22 Essence Wise [facility] [address] [place] [address] Assigned MTM Pharmacist 01/16/22 05/07/22 Heidy Harrell DO [address] [place] [address] Assigned Neuroscience Provider 11/15/21 04/16/22 Essence Wise [facility] [address] [place] [address] Assigned MTM Pharmacist 05/19/22 07/01/23 Essence Wise [facility] [address] [place] [address] Assigned MTM Pharmacist 10/14/23 Pablito Paulson MD [address] [place] [address] Assigned Pulmonology Provider 03/13/24 Phuc Cruz MD [address] [place] [address] Cardiovascular Disease 09/20/24 01/02/25 Phuc Cruz MD Assigned Heart and Vascular Provider 10/14/24 01/10/25 Claudia Loya APRN [facility] [address] [address] Assigned Heart and Vascular Provider 01/11/25 documented as of this encounter
--- OUTSIDE RECORDS SUMMARY | 2025-02-09 00:57 | XMS_ITS | Encounter Summary ---
Author Organization [place] Address [address] [facility] [place] [address] Care Team Providers Care Dice Table Person Name Role Phone Andrew Erickson MD Primary Care Provider [phone] Sandoval Boggs MD Unavailable [phone] Jordan Erickson MD Unavailable [phone] Essence Wise [facility] Unavailable +[phone] Heidy Harrell DO Unavailable [phone] Heidy Harrell DO Unavailable [phone] Essence Wise [facility] Unavailable [phone] Pablito Paulson MD Unavailable Claudia Loya APRN MANAGER PRODUCE Unavailable [phone] Reason for Visit * Reason Onset Date Comments Refill Request 01/24/2025 Encounter Details Date Type Department Care Team (Late st Contact Info) Description 01/24/2025 Refill [facility] Heart [facility] [address] [facility] [address] [place] [phone] Claudia Loya APRN MANAGER PRODUCE [address] [facility] [place] [place] [id number] Refill Request Social History Tobacco Use Types [...] CDT 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 Medication meets criteria for refill. documented in this encounter Plan of Treatment Upcoming Encounters Date Type Department Care Team (Late st Contact Info) Description 07/10/2025 12:00 PM ASSISTANT CORPORATE SECRETARY Office Visit [facility] Neurology Clinic [address] [address] Lary Schmitz H, GAS MANAGER [facility] [address] [place] [address] [id number] [place] [address] documented as of this encounter Visit Diagnoses Diagnosis Orthostatic hypotension documented in this encounter Additional Health Concerns Assessment Noted Time PHQ-9 Depression Total Score: 8 11/07/19 25 9:03 AM CDT documented as of this encounter Care Teams Dice Table Person Relationship Specialty Start Date End Date Andrew Erickson MD PCP - General Family Practice 11/12/17 Sandoval Boggs MD [address] [place] [address] [id number] Clinical Neurophysiology 11/03/18 Jordan Erickson MD [address] [address] 11/03/18 Essence Wise, [facility] [address] [place] [address] Pharmacist Pharmacist 06/01/21 Heidy Harrell DO [address] [place] [address] 477[address] Neurology 09/28/21 Heidy Harrell DO [address] [place] [address] 070245 Assigned Neuroscience Provider 04/17/22 Essence Wise, [facility] [address] [place] [address] Assigned MTM Pharmacist 10/14/23 Pablito Paulson MD [address] [place] [address] Assigned Pulmonology Provider 03/13/24 Claudia Loya APRN MANAGER PRODUCE [address] [place] [address] Assigned Heart and Vascular Provider 01/11/25 documented as of this encounter
--- OUTSIDE RECORDS SUMMARY | 2025-02-09 00:58 | XMS_ITS | Encounter Summary ---
Author Organization [place] Address [address] [place] [address] Care Team Providers Care Vice President [employer] Name Role Phone Andrew Erickson MD Primary Care Provider [phone] Sandoval Boggs MD Unavailable [phone] Jordan Erickson MD Unavailable [phone] Essence Wise [facility] Unavailable +[phone] Heidy Harrell DO Unavailable [phone] Heidy Harrell DO Unavailable [phone] Essence Wise [facility] Unavailable [phone] Pablito Paulson MD Unavailable Phuc Cruz MD Unavailable Unavailab Phuc Barraza MD Unavailable Unavailab Claudia Rodrigez APRN NEWS GATHERING TECHNICIAN Unavailable [phone] Encounter Details Date Type Department Care Team (Late st Contact Info) Description 11/14/2024 [facility] Medical Advice [facility] Neurology [facility] [address] [facility] [address] [place] [address] Essence Wise, [facility] [address] [place] [address] Social History Tobacco Use Types [...] AM CDT 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 Gender Identity Male 04/09/2020 8:36 AM CDT Sexual Orientation Straight 04/09/2020 8: 36 AM CDT documented as of this encounter Plan of Treatment Upcoming Encounters Date Type Department Care Team (Late st Contact Info) Description 07/10/2025 12:00 PM PLATFORM ENGINEER Office Visit [facility] Neurology [address] [address] Lary Schmitz, AGRICULTURAL EQUIPMENT MECHANIC NEWS GATHERING TECHNICIAN [address] [place] [address] [id number] [address] documented as of this encounter Visit Diagnoses Not on filedocumented in this encounter Additional Health Concerns Assessment Noted Time PHQ-9 Depression Total Score: 8 11/07/19 25 9:03 AM CDT documented as of this encounter Care Teams Vice President [employer] Relationship Specialty Start Date End Date Andrew Erickson MD PCP - General Family Practice 11/12/17 Sandoval Boggs MD [address] [place] [address] [id number] Clinical Neurophysiology 11/03/18 Jordan Erickson MD [facility] [address] [place] [address] 11/03/18 Essence Wise, [facility] [address] [place] [address] Pharmacist Pharmacist 06/01/21 Heidy Harrell DO [address] [place] [address] Neurology 09/28/21 Heidy Harrell DO [address] [place] [address] Assigned Neuroscience Provider 04/17/22 Essence Wise, [facility] [address] [place] [address] Assigned MTM Pharmacist 10/14/23 Pablito Paulson MD [address] [place] [address] Assigned Pulmonology Provider 03/13/24 Phuc Cruz MD [address] [place] [address] Cardiovascular Disease 09/20/24 01/02/25 Phuc Cruz MD Assigned Heart and Vascular Provider 10/14/24 01/10/25 Claudia Loya APRN NEWS GATHERING TECHNICIAN [address] [place] [address] Assigned Heart and Vascular Provider 01/11/25 documented as of this encounter
== END 2025-02-08 09:09 | disposition home or self-care (01) ==
PROVIDERS: PCP Family Medicine; Visit Provider Family Medicine
DX: R10.9 Unspecified abdominal pain (principal)
CPT/HCPCS: 76705

== ENCOUNTER 2025-06-25 09:11 | Outpatient (CLI) | payer MEDICARE, BC, SELFPAY | END 2025-06-25 09:12 | disposition home or self-care (01) | PROVIDERS: PCP Family Medicine; Visit Provider Family Medicine | DX: R78.2 Finding of cocaine in blood (principal); R80.9 Proteinuria, unspecified | CPT/HCPCS: 80053; 80061 ==